=== PATIENT | male | born 1985 | race American Indian/Alaskan Native ===

== ENCOUNTER 2017-02-10 08:19 | Emergency (ER) | payer BC ==
[2017-02-10 08:49] VITALS: BP 112/81
--- NOTE | 2017-02-10 09:29 | XRay Report ---
RIGHT HAND, 3 views: History: Pain, right middle finger swelling Mild nonspecific soft tissue swelling of the distal third digit is noted. No radiopaque foreign body, bony abnormality or joint pathology is appreciated. IMPRESSION: Nonspecific soft tissue swelling of the distal third digit.
--- NOTE | 2017-02-10 10:56 | Emergency Department Report ---
HPI - General Chief Complaint: Extremity Injury, Upper Time Seen by Provider: 02/10/17 09:32 - HPI HPI: 31-year-old male presents to ED complaining of pain and swelling to the right third fingertip. Patient states the past 2-3 days since he noticed swelling. Patient denies injury or trauma to the finger. Patient states pain with movement. He states he gets his fingernails a couple of days ago. Signed he denies fever chills nausea vomiting or any other problems ED Past Medical Hx - Past Medical History Previous Medical History?: No - Surgical History Past Surgical History?: No - Social History Smoking Status: Never Smoker Substance Use Type: None - Medications Home Medications: Home Medications Medication Instructions Recorded Confirmed Last Taken Type Cephalexin [Keflex] 500 mg PO BID #12 capsule 02/10/17 Unknown Rx Ibuprofen [Motrin] 800 mg PO Q8HR PRN #30 tablet 02/10/17 Unknown Rx ED Review of Systems ROS: Stated complaint: RT FINGER SWOLLEN Other details as noted in HPI Constitutional: denies: chills, fever Eyes: denies: eye pain, eye discharge, vision change ENT: denies: ear pain, throat pain Respiratory: denies: cough, shortness of breath, wheezing Cardiovascular: denies: chest pain, palpitations Endocrine: no symptoms reported Gastrointestinal: denies: abdominal pain, nausea, vomiting, diarrhea Genitourinary: denies: urgency, dysuria Musculoskeletal: denies: back pain, joint swelling, arthralgia Skin: denies: rash, lesions Neurological: denies: headache, weakness, paresthesias Psychiatric: denies: anxiety, depression Hematological/Lymphatic: denies: easy bleeding, easy bruising Physical Exam - Physical Exam Vital Signs: Vital Signs 02/10/17 08:48 Temperature 98.2 F Pulse Rate 72 Respiratory 18 Rate Blood Pressure 112/81 [Left] O2 Sat by Pulse 100 Oximetry Physical Exam: GENERAL: Alert and oriented x3, no apparent distress, Normal Gait, atraumatic. HEAD: Head is normocephalic and a-traumatic. EYES: Extra ocular muscles are intact. Pupils are equal, round, and reactive to light and accommodation. LUNGS: Symetrical with respiration, No wheezing, no rales or crackles, CTAB. HEART: S1, S2 present, regular rate and rhythm without murmur, no rubs, no gallops. Non tender to palpation FINGER: There is digit fingertip read, swollen, consistent with [place] since SKIN: Warm and dry, No lesions, No ulceration or induration present. ED Course Vital Signs 02/10/17 08:48 Temperature 98.2 F Pulse Rate 72 Respiratory 18 Rate Blood Pressure 112/81 [Left] O2 Sat by Pulse 100 Oximetry ED Medical Decision Making - Medical Decision Making 30-year-old male presents with paronychia ED course: Digital block was achieved with 4 mL of lidocaine Small incision made at nail bed appears discharge expelled. Patient managed procedure well Discussed antibiotics as prescribed. Discussed pain medicine as needed Follow-up with primary care physician. Signs are normal patient is in no acute distress. Critical care attestation.: If time is entered above; I have spent that time in minutes in the direct care of this critically ill patient, excluding procedure time. ED Disposition Clinical Impression: Onychia, finger Qualifiers: Laterality: right Qualified Code(s): L03.011 - Cellulitis of right finger Disposition: DC-01 TO HOME OR SELFCARE Is pt being admited?: No Does the pt Need Aspirin: No Condition: Stable Instructions: Paronychia (ED), Ingrown Nail (ED) Prescriptions: Cephalexin [Keflex] 500 mg PO BID #12 capsule Ibuprofen [Motrin] 800 mg PO Q8HR PRN #30 tablet PRN Reason: Pain Referrals: PRIMARY CARE,MD [Primary Care Provider] - 3-5 Days [facility] [Outside] - 3-5 Days [facility] [Outside] - 3-5 Days Forms: Work/School Release Form(ED) Time of Disposition: 11:21
== END 2017-02-10 11:47 | disposition home or self-care (01) ==
LOC: ED 08:19
DX: B37.2 Candidiasis of skin and nail (principal)
CPT/HCPCS: 99283

== ENCOUNTER 2018-02-09 11:01 | Emergency (ER) | payer SELFPAY ==
[2018-02-09 11:11] VITALS: BP 112/72
[2018-02-09] MEDS ORDERED: XYLOCAINE 2% INFILTRATI ONE (12:44)
--- NOTE | 2018-02-09 13:40 | Emergency Department Report ---
Abscess Boil HPI - HPI Chief Complaint: Skin/Abscess/Foreign Body Stated Complaint: PAINFUL KNOT ON STOMACH Time Seen by Provider: 02/09/18 12:04 Location: Abdomen Severity: Mild History: Yes Fever, Yes Pain, No Purulent Drainage, No Numbness, No Foreign Body , No Previous History, No Insect Bite HPI: This is a 32-year-old -[place] male who presents with the abscess to right lower abdomen for 4 days. Patient reports abscess drained twice while at home with applying moist compress. States abscess decreased in size initially but remained painful and erythematous. He has not taken anything for symptom relief. Reports pain is aggravated by movement and touch. When he is laying flat he doesn't feel pain. Pain is 8 out of 10 on pain scale. Denies numbness or tingling, drainage, insect bite, recent travel, nausea or vomiting, and past history of abscess. Home Medications: Previous Rx's Medication Instructions Recorded Last Taken Type Cephalexin [Keflex] 500 mg PO BID #12 capsule 02/10/17 Unknown Rx Ibuprofen [Motrin] 800 mg PO Q8HR PRN #30 tablet 02/10/17 Unknown Rx Ibuprofen [Motrin 800 MG tab] 800 mg PO Q8HR PRN #20 tablet 02/09/18 Unknown Rx Sulfamethoxazole/Trimethoprim 1 each PO BID 10 Days #20 tablet 02/09/18 Unknown Rx [Bactrim DS TAB] Allergies/Adverse Reactions: Allergies Allergy/AdvReac Type Severity Reaction Status Date / Time No Known Allergies Allergy Verified 02/10/17 08:52 ED Review of Systems ROS: Stated complaint: PAINFUL KNOT ON STOMACH Other details as noted in HPI Constitutional: fever. denies: chills Respiratory: denies: cough, shortness of breath, wheezing Cardiovascular: denies: chest pain, palpitations Gastrointestinal: denies: abdominal pain, nausea, vomiting, diarrhea Skin: lesions (abscess of right lower abdomen). denies: rash Neurological: denies: headache, weakness, numbness, paresthesias Psychiatric: denies: anxiety, depression ED Past Medical Hx - Past Medical History Previous Medical History?: No - Surgical History Past Surgical History?: No - Social History Smoking Status: Never Smoker Substance Use Type: None - Medications Home Medications: Home Medications Medication Instructions Recorded Confirmed Last Taken Type Cephalexin [Keflex] 500 mg PO BID #12 capsule 02/10/17 Unknown Rx Ibuprofen [Motrin] 800 mg PO Q8HR PRN #30 tablet 02/10/17 Unknown Rx Ibuprofen [Motrin 800 MG tab] 800 mg PO Q8HR PRN #20 tablet 02/09/18 Unknown Rx Sulfamethoxazole/Trimethoprim 1 each PO BID 10 Days #20 tablet 02/09/18 Unknown Rx [Bactrim DS TAB] ED Abscess Boil Physical Exam - Exam General: Vital signs noted. No distress. Alert and acting appropriately. Front/Back of Body, Lg (Color): 1 - 3 cm fluctuance erythematous nodule to right lower quadrant, tenderness, no drainage or surrounding cellulitis Size: 3 cm Exam: Yes Tenderness, Yes Fluctuance, Yes Normal Neurologic Exam, Yes Normal Circulation, No Surrounding Cellulites/Erythema, No Lymphangitis, No Crepitation , No Heart Murmur I & D Note - I & D Note I & D Note: The area was prepared and draped in the usual, sterile manner. The site was anesthetized with 2% lidocaine without epinephrine. A linear incision along the local skin lines was made and the purulent material expressed. The abcess was explored thoroughly and sequestered pockets were opened. Bleeding was minimal. Packing: idodoform. Followup: The patient tolerated the procedure well without complications. Standard post-procedure care was explained and return precautions are given. ED Course Vital Signs 02/09/18 11:06 Temperature 99.1 F Pulse Rate 84 Respiratory 20 Rate Blood Pressure 112/72 O2 Sat by Pulse 97 Oximetry Critical care attestation.: If time is entered above; I have spent that time in minutes in the direct care of this critically ill patient, excluding procedure time. ED Medical Decision Making - Medical Decision Making This is a 32 y.o. male that presents with a painful abscess to right lower abdomen for 4 days. No history of prior abscess. Patient is stable and examined by me. Physical assessment of 3 cm fluctuance nodule to right lower quadrant. No acute signs of distress noted. I&D refer to note. Discussed plan to start bactrim DS and ibuprofen with patient. Educated patient on follow up plan to have packing removed and wound reassessed in 2-3 days. Patient agrees to ED plan of care. Discharged home and follow up with PCP in 2-3 days. ED Disposition Clinical Impression: Abscess Disposition: DC- TO HOME OR SELFCARE Is pt being admited?: No Does the pt Need Aspirin: No Condition: Stable Instructions: Abscess Incision and Drainage (ED), Abscess (ED) Additional Instructions: Keep packing in place for 2-3 days. Return to ER or f/u with PCP to have packing removed and wound reassessed. Complete full round of bactrim DS antibiotic as prescribed. Follow up with PCP or ER in 2-3 days. Return to ER if foul smelling discharge, swelling, or severe pain to wound. Prescriptions: Ibuprofen [Motrin 800 MG tab] 800 mg PO Q8HR PRN #20 tablet PRN Reason: Pain , Severe (7-10) Sulfamethoxazole/Trimethoprim [Bactrim DS TAB] 1 each PO BID 10 Days #20 tablet Referrals: [facility] [Outside] - 3-5 Days [facility] [Outside] - 3-5 Days [facility] [Outside] - 3-5 Days Time of Disposition: 13:51 Print Language: CZECH
== END 2018-02-09 14:06 | disposition home or self-care (01) ==
LOC: ED 11:01
DX: L02.211 Cutaneous abscess of abdominal wall (principal)
CPT/HCPCS: 99282

== ENCOUNTER 2018-02-12 08:23 | Emergency (ER) | payer SELFPAY ==
[2018-02-12 08:45] VITALS: BP 108/74
--- NOTE | 2018-02-12 09:41 | Emergency Department Report ---
ED General Adult HPI - General Chief complaint: Recheck/Abnormal Lab/Rx Stated complaint: SUTURE REMOVAL Time Seen by Provider: 02/12/18 09:27 Source: patient Mode of arrival: Ambulatory Limitations: No Limitations - History of Present Illness Initial comments: Patient is a 32-year-old male who is 3 days status post I&D of an abscess on his lower abdomen. Patient states pain is improving and has been very minimal drainage. Patient is here for wound recheck and potential packing removal. Patient denies any fevers chills nausea vomiting at this time. Patient is taking his antibiotics and pain meds appropriately. Severity scale (0 -10): 3 - Related Data Previous Rx's Medication Instructions Recorded Last Taken Type Cephalexin [Keflex] 500 mg PO BID #12 capsule 02/10/17 Unknown Rx Ibuprofen [Motrin] 800 mg PO Q8HR PRN #30 tablet 02/10/17 Unknown Rx Ibuprofen [Motrin 800 MG tab] 800 mg PO Q8HR PRN #20 tablet 02/09/18 Unknown Rx Sulfamethoxazole/Trimethoprim 1 each PO BID 10 Days #20 tablet 02/09/18 Unknown Rx [Bactrim DS TAB] Allergies Allergy/AdvReac Type Severity Reaction Status Date / Time No Known Allergies Allergy Verified 02/12/18 08:43 ED Review of Systems ROS: Stated complaint: SUTURE REMOVAL Other details as noted in HPI Comment: All other systems reviewed and negative ED Past Medical Hx - Social History Smoking Status: Current Some Day Smoker Substance Use Type: Alcohol - Medications Home Medications: Home Medications Medication Instructions Recorded Confirmed Last Taken Type Cephalexin [Keflex] 500 mg PO BID #12 capsule 02/10/17 Unknown Rx Ibuprofen [Motrin] 800 mg PO Q8HR PRN #30 tablet 02/10/17 Unknown Rx Ibuprofen [Motrin 800 MG tab] 800 mg PO Q8HR PRN #20 tablet 02/09/18 Unknown Rx Sulfamethoxazole/Trimethoprim 1 each PO BID 10 Days #20 tablet 02/09/18 Unknown Rx [Bactrim DS TAB] ED Physical Exam - General Limitations: No Limitations General appearance: alert, in no apparent distress - Head Head exam: Present: atraumatic, normocephalic - Eye Eye exam: Present: normal appearance - ENT ENT exam: Present: mucous membranes moist - Neck Neck exam: Present: normal inspection - Respiratory Respiratory exam: Present: normal lung sounds bilaterally. Absent: respiratory distress - Cardiovascular Cardiovascular Exam: Present: regular rate, normal rhythm. Absent: systolic murmur, diastolic murmur, rubs, gallop - GI/Abdominal GI/Abdominal exam: Present: soft, normal bowel sounds - Rectal Rectal exam: Present: deferred - Extremities Exam Extremities exam: Present: normal inspection - Back Exam Back exam: Present: normal inspection - Neurological Exam Neurological exam: Present: alert, oriented X3 - Psychiatric Psychiatric exam: Present: normal affect, normal mood - Skin Skin exam: Present: warm, dry, intact, normal color, other (patient has some erythema and induration on the right lower abdomen. There is packing in place.) . Absent: rash ED Course Vital Signs 02/12/18 02/12/18 08:43 08:45 Temperature 98.2 F 98.2 F Pulse Rate 72 72 Respiratory 18 16 Rate Blood Pressure 108/74 Blood Pressure 108/74 [Left] O2 Sat by Pulse 100 98 Oximetry ED Medical Decision Making - Medical Decision Making Packing was removed from the patient's I&D site. There is no continued purulent drainage from the wound. There is good granulation tissue. Patient will be discharged home to continue with antibiotics Critical care attestation.: If time is entered above; I have spent that time in minutes in the direct care of this critically ill patient, excluding procedure time. ED Disposition Clinical Impression: Encounter for wound re-check, Cellulitis Disposition: DC-01 TO HOME OR SELFCARE Is pt being admited?: No Does the pt Need Aspirin: No Condition: Stable Referrals: [facility] [Outside] - 3-5 Days
== END 2018-02-12 10:04 | disposition home or self-care (01) ==
LOC: ED 08:23
DX: L03.311 Cellulitis of abdominal wall (principal); Z72.0 Tobacco use
CPT/HCPCS: 99282

== ENCOUNTER 2019-12-02 14:12 | Inpatient (IN) | payer OTHER ==
--- NOTE | 2019-12-02 14:51 | Emergency Department Report ---
ED General Adult HPI - General Chief complaint: Upper Respiratory Infection Stated complaint: COUGH,STOMACH PAIN Source: patient Mode of arrival: Ambulatory Limitations: No Limitations - History of Present Illness Initial comments: 34-year-old -[place] Citizen male presents to the emergency room for cough fever and shortness of breath since Thursday. Patient states on Thursday he started having sweats and chills on Thursday he had vomited several times by Thursday afternoon he had a cough he had taken qkbc-cyo-xnllhgl cough medicine. He started having epigastric pain that is worse with the cough on . 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 He denies any past medical history takes no medications on a daily basis and has no known drug allergies. Patient denies any diarrhea sore throat change of taste. Patient is unaware of any possible COVID contact. Onset/Timin -: days(s) Severity scale (0 -10): 5 Quality: aching Consistency: intermittent Improves with: none Worsens with: other (Coughing) Associated Symptoms: cough, fever/chills, nausea/vomiting, shortness of breath Treatments Prior to Arrival: none - Related Data Previous Rx's Medication Instructions Recorded Last Taken Type Cephalexin [Keflex] 500 mg PO BID #12 capsule 02/10/17 3 Days Ago Rx ~12/01/19 Ibuprofen [Motrin] 800 mg PO Q8HR PRN #30 tablet 02/10/17 3 Days Ago Rx ~12/01/19 Ibuprofen [Motrin 800 MG tab] 800 mg PO Q8HR PRN #20 tablet 02/09/18 3 Days Ago Rx ~12/01/19 Sulfamethoxazole/Trimethoprim 1 each PO BID 10 Days #20 tablet 02/09/18 3 Days Ago Rx [Bactrim DS TAB] ~12/01/19 Allergies Allergy/AdvReac Type Severity Reaction Status Date / Time No Known Allergies Allergy Verified 12/02/19 14:17 ED Review of Systems ROS: Stated complaint: COUGH,STOMACH PAIN Other details as noted in HPI ED Past Medical Hx - Past Medical History Previous Medical History?: No - Surgical History Past Surgical History?: No - Social History Smoking Status: Never Smoker Substance Use Type: None - Medications Home Medications: Home Medications Medication Instructions Recorded Confirmed Last Taken Type Cephalexin [Keflex] 500 mg PO BID #12 capsule 02/10/17 12/04/19 3 Days Ago Rx ~12/01/19 Ibuprofen [Motrin] 800 mg PO Q8HR PRN #30 tablet 02/10/17 12/04/19 3 Days Ago Rx ~12/01/19 Ibuprofen [Motrin 800 MG tab] 800 mg PO Q8HR PRN #20 tablet 02/09/18 12/04/19 3 Days Ago Rx ~12/01/19 Sulfamethoxazole/Trimethoprim 1 each PO BID 10 Days #20 tablet 02/09/18 12/04/19 3 Days Ago Rx [Bactrim DS TAB] ~12/01/19 ED Physical Exam - General Limitations: No Limitations General appearance: alert, in no apparent distress - Head Head exam: Present: atraumatic, normocephalic - Eye Eye exam: Present: normal appearance - ENT ENT exam: Present: mucous membranes moist - Neck Neck exam: Present: normal inspection - Respiratory Respiratory exam: Present: normal lung sounds bilaterally. Absent: respiratory distress - Cardiovascular Cardiovascular Exam: Present: regular rate, normal rhythm. Absent: systolic murmur, diastolic murmur, rubs, gallop - GI/Abdominal GI/Abdominal exam: Present: soft, normal bowel sounds - Rectal Rectal exam: Present: deferred - Extremities Exam Extremities exam: Present: normal inspection - Back Exam Back exam: Present: normal inspection - Neurological Exam Neurological exam: Present: alert, oriented X3, normal gait - Psychiatric Psychiatric exam: Present: normal affect, normal mood - Skin Skin exam: Present: warm, dry, intact, normal color. Absent: rash ED Course Vital Signs 12/02/19 12/02/19 12/02/19 14:20 14:22 19:45 Temperature 100.2 F H Pulse Rate 116 H 116 H 106 H Respiratory 15 21 Rate Blood Pressure 103/60 Blood Pressure 109/71 [Left] O2 Sat by Pulse 97 97 97 Oximetry 12/02/19 20:02 Temperature Pulse Rate 106 H Respiratory 21 Rate Blood Pressure Blood Pressure 103/60 [Left] O2 Sat by Pulse 97 Oximetry ED Medical Decision Making - Lab Data Result diagrams: 12/05/19 04:09 12/05/19 04:09 Laboratory Tests 12/02/19 12/02/19 12/02/19 15:21 15:21 15:21 WBC 6.6 RBC 4.03 Hgb 10.5 L Hct 32.2 L MCV 80 L MCH 26 L MCHC 33 RDW 16.0 H Plt Count 122 L Miner % (Auto) Doughnut Icer Add Manual Diff Complete Total Counted 100 Seg Neuts % (Manual) 59.0 Band Neutrophils % 0 Lymphocytes % (Manual) 23.0 Reactive Lymphs % (Man) 0 Monocytes % (Manual) 14.0 H Eosinophils % (Manual) 1.0 Basophils % (Manual) 0 Metamyelocytes % 0 Myelocytes % 0 Promyelocytes % 0 Blast Cells % 3.0 Nucleated RBC % Not Reportable Seg Neutrophils # Man 3.9 Band Neutrophils # 0.0 Lymphocytes # (Manual) 1.5 Abs React Lymphs (Man) 0.0 Monocytes # (Manual) 0.9 H Eosinophils # (Manual) 0.1 Basophils # (Manual) 0.0 Metamyelocytes # 0.0 Myelocytes # 0.0 Promyelocytes # 0.0 Blast Cells # 0.8 Hypersegmented Neuts Not Reportable Hyposegmented Neuts Not Reportable Hypogranular Neuts Not Reportable Smudge Cells Not Reportable Toxic Granulation Not Reportable Toxic Vacuolation Not Reportable Dohle Bodies Not Reportable Pelger-Huet Anomaly Not Reportable Albina Rods Not Reportable Platelet Estimate Not Reportable Clumped Platelets Not Reportable Plt Clumps, EDTA Not Reportable Large Platelets Not Reportable Giant Platelets Not Reportable Platelet Satelliting Not Reportable Plt Morphology Comment Not Reportable RBC Morphology Normal Dimorphic RBCs Not Reportable Polychromasia Not Reportable Hypochromasia Not Reportable Poikilocytosis Not Reportable Anisocytosis Not Reportable Microcytosis Not Reportable Macrocytosis Not Reportable Spherocytes Not Reportable Pappenheimer Bodies Not Reportable Sickle Cells Not Reportable Target Cells Not Reportable Tear Drop Cells Not Reportable Ovalocytes Not Reportable Helmet Cells Not Reportable Jones-[place] Bodies Not Reportable [place] Rings Not Reportable Carter Cells Not Reportable Bite Cells Not Reportable Crenated Cell Not Reportable Elliptocytes Not Reportable Acanthocytes (Spur) Not Reportable Rouleaux Not Reportable Hemoglobin C Crystals Not Reportable Schistocytes Not Reportable Malaria parasites Not Reportable Juan Carlos Bodies Not Reportable Hem Pathologist Commnt Sent to pathology D-Dimer 3284.41 H Sodium 126 L Potassium 4.1 Chloride 93.3 L Carbon Dioxide 20 L Anion Gap 17 BUN 12 Creatinine 1.0 Estimated GFR > 60 BUN/Creatinine Ratio 12 Glucose 114 H Calcium 8.2 L Ferritin Total Bilirubin 0.40 AST 32 ALT 20 Alkaline Phosphatase 54 Lactate Dehydrogenase C-Reactive Protein Total Protein 8.3 H Albumin 2.8 L Albumin/Globulin Ratio 0.5 12/02/19 12/02/19 15:21 15:21 WBC RBC Hgb Hct MCV MCH MCHC RDW Plt Count Miner % (Auto) Add Manual Diff Total Counted Seg Neuts % (Manual) Band Neutrophils % Lymphocytes % (Manual) Reactive Lymphs % (Man) Monocytes % (Manual) Eosinophils % (Manual) Basophils % (Manual) Metamyelocytes % Myelocytes % Promyelocytes % Blast Cells % Nucleated RBC % Seg Neutrophils # Man Band Neutrophils # Lymphocytes # (Manual) Abs React Lymphs (Man) Monocytes # (Manual) Eosinophils # (Manual) Basophils # (Manual) Metamyelocytes # Myelocytes # Promyelocytes # Blast Cells # Hypersegmented Neuts Hyposegmented Neuts Hypogranular Neuts Smudge Cells Toxic Granulation Toxic Vacuolation Dohle Bodies Pelger-Huet Anomaly Albina Rods Platelet Estimate Clumped Platelets Plt Clumps, EDTA Large Platelets Giant Platelets Platelet Satelliting Plt Morphology Comment RBC Morphology Dimorphic RBCs Polychromasia Hypochromasia Poikilocytosis Anisocytosis Microcytosis Macrocytosis Spherocytes Pappenheimer Bodies Sickle Cells Target Cells Tear Drop Cells Ovalocytes Helmet Cells Jones-[place] Bodies [place] Rings [place] Cells Bite Cells Crenated Cell Elliptocytes Acanthocytes (Spur) Rouleaux Hemoglobin C Crystals Schistocytes Malaria parasites Juan Carlos Bodies Hem Pathologist Commnt D-Dimer Sodium Potassium Chloride Carbon Dioxide Anion Gap BUN Creatinine Estimated GFR BUN/Creatinine Ratio Glucose Calcium Ferritin 1133.0 H Total Bilirubin AST ALT Alkaline Phosphatase Lactate Dehydrogenase 206 H C-Reactive Protein 14.60 H Total Protein Albumin Albumin/Globulin Ratio - Radiology Data Radiology results: report reviewed Referring Physician:TREVON GARCIAPatient Name:PENNY BARRAZAatiselin ID:[id number] of :[id number]:MaleAccession:[id number] Date:[id number] Status:Finalized Findings [facility] [address] [place] [address] XRay Report Signed Patient: PENNY FERNANDO III MR #: [id number] : 1985 Acct:[id number] Age/Sex: 34 / M ADM Date: 12/02/19 Loc: ED Attending Dr: Ordering Physician: DEEPTHI HOWARD Date of Service: 12/02/19 Procedure(s): XR chest routine 2V Accession Number(s): [id number] cc: DEEPTHI HOWARD Fluoro Time In Minutes: CHEST 2 VIEWS INDICATION / CLINICAL INFORMATION: Shortness of breath and fever. COMPARISON: None available. FINDINGS: SUPPORT DEVICES: None. HEART / MEDIASTINUM: The heart size and pulmonary vasculature are normal. LUNGS / PLEURA: There is jvcl-[id number]-msbgxrgl patchy parenchymal disease in the right perihilar region. There may be minimal patchy parenchymal disease in the left midlung. A trace amount of right pleural fluid is present. No pneumothorax. ADDITIONAL FINDINGS: No significant additional findings. IMPRESSION: Patchy parenchymal disease, predominantly in the right perihilar region, is likely inflammatory. Bacterial pneumonia as well as atypical causes of pneumonia, including viral pneumonia should be considered. Signer Name: Benton Antoine MD Signed: 12/02/2019 3:09 PM Workstation Name: [id number] Transcribed By: RT Dictated By: Benton Antoine MD Electronically Authenticated By: Benton Antoine MD Signed Date/Time: 12/02/19 1509 DD/ 1507 TD/TT: - Medical Decision Making 34-year-old -[place] Citizen male presents to the emergency room for cough fever and shortness of breath since Thursday. Patient states on Thursday he started having sweats and chills on Thursday he had vomited several times by Thursday afternoon he had a cough he had taken puiv-bvc-fxjbrrj cough medicine. He started having epigastric pain that is worse with the cough on . 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 He denies any past medical history takes no medications on a daily basis and has no known drug allergies. Patient denies any diarrhea sore throat change of taste. Patient is unaware of any possible COVID contact. Chest x-ray, CBC, CMP, ferritin, LD, d-dimer and prolactin level. Discussed case with Dr. Mena he feels patient needs to be admitted. Spoke to Dr. Higgins states that he will place patient on his list bridge orders placed. Critical care attestation.: If time is entered above; I have spent that time in minutes in the direct care of this critically ill patient, excluding procedure time. ED Disposition Clinical Impression: Pneumonia, Suspected 2019 novel coronavirus infection, Elevated ferritin, Shortness of breath, CRP elevated, Low grade fever, Cough, D-dimer, elevated Disposition: OP ADMIT IP TO THIS HOSP Is pt being admited?: Yes Does the pt Need Aspirin: No Condition: Stable
[2019-12-02] MEDS ORDERED: ACETAMINOPHEN 325 MG TAB PO ONE (14:55)
--- NOTE | 2019-12-02 15:13 | XRay Report ---
CHEST 2 VIEWS INDICATION / CLINICAL INFORMATION: Shortness of breath and fever. COMPARISON: None available. FINDINGS: SUPPORT DEVICES: None. HEART / MEDIASTINUM: The heart size and pulmonary vasculature are normal. LUNGS / PLEURA: There is vsyz-eo-nkgzrrgy patchy parenchymal disease in the right perihilar region. T here may be minimal patchy parenchymal disease in the left midlung. A trace amount of right pleural f luid is present. No pneumothorax. ADDITIONAL FINDINGS: No significant additional findings. IMPRESSION: Patchy parenchymal disease, predominantly in the right perihilar region, is likely inflam matory. Bacterial pneumonia as well as atypical causes of pneumonia, including viral pneumonia should be considered. Signer Name: Benton Antoine MD Signed: 12/02/2019 3:09 PM Workstation Name: [id number]
[2019-12-02 16:03] LABS: Alanine Aminotransferase 20 units/L (7-56); Albumin 2.8 g/dL (3.9-5); BUN/Creatinine Ratio 12; Blood Urea Nitrogen 12 mg/dL (9-20); Calcium 8.2 mg/dL (8.4-10.2); Hemolysis Index 8
[2019-12-02 16:04] LABS: C-Reactive Protein 14.6 mg/dL (0.00-1.30)
[2019-12-02 16:08] LABS: Hematocrit 32.2 % (35.5-45.6); Hemoglobin 10.5 gm/dl (11.8-15.2); Mean Corpuscular HGB Conc 33 % (32-34); Mean Corpuscular Volume 80 fl (84-94); Platelet Count 122 K/mm3 (140-440); Red Blood Count 4.03 M/mm3 (3.65-5.03)
[2019-12-02 16:57] LABS: Basophils % (Manual) 0 % (0.0-1.8); RBC Morphology Normal; Total Cells Counted 100
[2019-12-02] MEDS ORDERED: SODIUM CHLORIDE 0.9% 1000 ML 1,000 ML IV ONE (16:57)
[2019-12-02] MEDS ORDERED: cefTRIAXone/NS 2 GM/100 ML 2 GM/100 ML BAG IV ONE (17:37)
[2019-12-02] MEDS ORDERED: AZITHROMYCIN 500 MG in SODIUM CHLORIDE 0.9% 250ML 250 ML IV ONE (17:39)
[2019-12-02] MEDS ORDERED: SODIUM CHLORIDE 0.9% 1000 ML 500 ML IV ONE (17:41)
--- NOTE | 2019-12-02 22:14 | History and Physical Report ---
History of Present Illness Date of examination: 12/02/19 Date of admission: 12/02/19 18:37 Chief complaint: Shortness of breath since Thursday Cough since Thursday History of present illness: 34-year-old -[place] male with no significant past medical history comes in for fever and chills since . Patient had vomited several times on . Patient has cough and has been taking bqif-wwd-hzzzfmc medicines. Patient also having epigastric pain from coughing. 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 Does not is not on any medication medications. No diarrhea. No exposure to any coronavirus patients. Past Medical History Previous Medical History?: No Surgical History Past Surgical History?: No Social History Smoking Status: Never Smoker Substance Use Type: family history None - Medications Home Medications: Home Medications Medication Instructions Recorded Confirmed Last Taken Type Cephalexin [Keflex] 500 mg PO BID #12 capsule 02/10/17 Unknown Rx Ibuprofen [Motrin] 800 mg PO Q8HR PRN #30 tablet 02/10/17 Unknown Rx Ibuprofen [Motrin 800 MG tab] 800 mg PO Q8HR PRN #20 tablet 02/09/18 Unknown Rx Sulfamethoxazole/Trimethoprim 1 each PO BID 10 Days #20 tablet 02/09/18 Unknown Rx [Bactrim DS TAB] Review of Systems ROS: Constitutional fever and chills HEENT no sore throat no post nasal drip no diplopia Neck no neck stiffness no lymph gland enlargement Chest and lungs cough and fever and chills no shortness of breath cough or wheezing CVS no chest pain no diaphoresis no palpitations GI no nausea no vomiting no diarrhea Genitourinary system no dysuria no flank pain Musculoskeletal system no muscle pains no joint pains 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 Skin no rash no itching Psychiatric no depression no homicidal or suicidal tendencies Hematologic no lymphedema or bruising Endocrine no polydipsia no polyuria no cold intolerance no heat intolerance Stated complaint: COUGH,STOMACH PAIN Other details as noted in HPI Medications and Allergies Allergies Allergy/AdvReac Type Severity Reaction Status Date / Time No Known Allergies Allergy Verified 12/02/19 14:17 Home Medications Medication Instructions Recorded Confirmed Last Taken Type Cephalexin [Keflex] 500 mg PO BID #12 capsule 02/10/17 Unknown Rx Ibuprofen [Motrin] 800 mg PO Q8HR PRN #30 tablet 02/10/17 Unknown Rx Ibuprofen [Motrin 800 MG tab] 800 mg PO Q8HR PRN #20 tablet 02/09/18 Unknown Rx Sulfamethoxazole/Trimethoprim 1 each PO BID 10 Days #20 tablet 02/09/18 Unknown Rx [Bactrim DS TAB] Exam - Constitutional Vitals: Temp Pulse Resp BP Pulse Ox 99.1 F 104 H 18 95/61 100 12/02/19 20:23 12/02/19 20:23 12/02/19 20:23 12/02/19 20:23 12/02/19 20:23 General appearance: Present: no acute distress, well-nourished - EENT Eyes: Present: PERRL ENT: hearing intact, clear oral mucosa - Neck Neck: Present: supple, normal ROM - Respiratory Respiratory effort: normal Respiratory: bilateral: CTA, rhonchi (Scattered) - Cardiovascular Heart rate: 78 Heart Sounds: Present: S1 & S2. Absent: rub, click - Extremities Extremities: pulses symmetrical, No edema Peripheral Pulses: within normal limits - Abdominal General gastrointestinal: Present: soft, non-tender, non-distended, normal bowel sounds Male genitourinary: Present: normal - Integumentary Integumentary: Present: clear, warm, dry - Musculoskeletal Musculoskeletal: gait normal, strength equal bilaterally - Psychiatric Psychiatric: appropriate mood/affect, intact judgment & insight - Neurologic Neurologic: CNII-XII intact, moves all extremities Results - Labs CBC & Chem 7: 12/02/19 15:21 12/03/19 05:54 Labs: Laboratory Last Values WBC 6.6 K/mm3 (4.5-11.0) 12/02/19 15: RBC 4.03 M/mm3 (3.65-5.03) 12/02/19 15:21 Hgb 10.5 gm/dl (11.8-15.2) L 12/02/19 15:21 Hct 32.2 % (35.5-45.6) L 12/02/19 15:21 MCV 80 fl (84-94) L 12/02/19 15:21 MCH 26 pg (28-32) L 12/02/19 15:21 MCHC 33 % (32-34) 12/02/19 15:21 RDW 16.0 % (13.2-15.2) H 12/02/19 15:21 Plt Count 122 K/mm3 (140-440) L 12/02/19 15:21 [place] % (Auto) Adoption Social Worker 12/02/19 15:21 Add Manual Diff Complete 12/02/19 15:21 Total Counted 100 12/02/19 15:21 Seg Neuts % (Manual) 59.0 % (40.0-70.0) 12/02/19 15:21 Band Neutrophils % 0 % 12/02/19 15:21 Lymphocytes % (Manual) 23.0 % (13.4-35.0) 12/02/19 15:21 Reactive Lymphs % (Man) 0 % 12/02/19 15:21 Monocytes % (Manual) 14.0 % (0.0-7.3) H 12/02/19 15:21 Eosinophils % (Manual) 1.0 % (0.0-4.3) 12/02/19 15:21 Basophils % (Manual) 0 % (0.0-1.8) 12/02/19 15:21 Metamyelocytes % 0 % 12/02/19 15:21 Myelocytes % 0 % 12/02/19 15:21 Promyelocytes % 0 % 12/02/19 15:21 Blast Cells % 3.0 % 12/02/19 15:21 Nucleated RBC % Not Reportable 12/02/19 15:21 Seg Neutrophils # Man 3.9 K/mm3 (1.8-7.7) 12/02/19 15:21 Band Neutrophils # 0.0 K/mm3 12/02/19 15:21 Lymphocytes # (Manual) 1.5 K/mm3 (1.2-5.4) 12/02/19 15:21 Abs React Lymphs (Man) 0.0 K/mm3 12/02/19 15:21 Monocytes # (Manual) 0.9 K/mm3 (0.0-0.8) H 12/02/19 15:21 Eosinophils # (Manual) 0.1 K/mm3 (0.0-0.4) 12/02/19 15:21 Basophils # (Manual) 0.0 K/mm3 (0.0-0.1) 12/02/19 15:21 Metamyelocytes # 0.0 K/mm3 12/02/19 15:21 Myelocytes # 0.0 K/mm3 12/02/19 15:21 Promyelocytes # 0.0 K/mm3 12/02/19 15:21 Blast Cells # 0.8 K/mm3 12/02/19 15:21 Hypersegmented Neuts Not Reportable 12/02/19 15:21 Hyposegmented Neuts Not Reportable 12/02/19 15:21 Hypogranular Neuts Not Reportable 12/02/19 15:21 Smudge Cells Not Reportable 12/02/19 15:21 Toxic Granulation Not Reportable 12/02/19 15:21 Toxic Vacuolation Not Reportable 12/02/19 15:21 Dohle Bodies Not Reportable 12/02/19 15:21 Pelger-Huet Anomaly Not Reportable 12/02/19 15:21 Albina Rods Not Reportable 12/02/19 15:21 Platelet Estimate Not Reportable 12/02/19 15:21 Clumped Platelets Not Reportable 12/02/19 15:21 Plt Clumps, EDTA Not Reportable 12/02/19 15:21 Large Platelets Not Reportable 12/02/19 15:21 Giant Platelets Not Reportable 12/02/19 15:21 Platelet Satelliting Not Reportable 12/02/19 15:21 Plt Morphology Comment Not Reportable 12/02/19 15:21 RBC Morphology Normal 12/02/19 15:21 Dimorphic RBCs Not Reportable 12/02/19 15:21 Polychromasia Not Reportable 12/02/19 15:21 Hypochromasia Not Reportable 12/02/19 15:21 Poikilocytosis Not Reportable 12/02/19 15:21 Anisocytosis Not Reportable 12/02/19 15:21 Microcytosis Not Reportable 12/02/19 15:21 Macrocytosis Not Reportable 12/02/19 15:21 Spherocytes Not Reportable 12/02/19 15:21 Pappenheimer Bodies Not Reportable 12/02/19 15:21 Sickle Cells Not Reportable 12/02/19 15:21 Target Cells Not Reportable 12/02/19 15:21 Tear Drop Cells Not Reportable 12/02/19 15:21 Ovalocytes Not Reportable 12/02/19 15:21 Helmet Cells Not Reportable 12/02/19 15:21 Jones-Dunnellon Bodies Not Reportable 12/02/19 15:21 [place] Rings Not Reportable 12/02/19 15:21 Carter Cells Not Reportable 12/02/19 15:21 Bite Cells Not Reportable 12/02/19 15:21 Crenated Cell Not Reportable 12/02/19 15:21 Elliptocytes Not Reportable 12/02/19 15:21 Acanthocytes (Spur) Not Reportable 12/02/19 15:21 Rouleaux Not Reportable 12/02/19 15:21 Hemoglobin C Crystals Not Reportable 12/02/19 15:21 Schistocytes Not Reportable 12/02/19 15:21 Malaria parasites Not Reportable 12/02/19 15:21 Juan Carlos Bodies Not Reportable 12/02/19 15:21 Hem Pathologist Commnt Sent to pathology 12/02/19 15:21 D-Dimer 3284.41 ng/mlDDU (0-234) H 12/02/19 15:21 Sodium 126 mmol/L (137-145) L 12/02/19 15:21 Potassium 4.1 mmol/L (3.6-5.0) 12/02/19 15:21 Chloride 93.3 mmol/L (98-107) L 12/02/19 15:21 Carbon Dioxide 20 mmol/L (22-30) L 12/02/19 15:21 Anion Gap 17 mmol/L 12/02/19 15:21 BUN 12 mg/dL (9-20) 12/02/19 15:21 Creatinine 1.0 mg/dL (0.8-1.5) 12/02/19 15:21 Estimated GFR > 60 ml/min 12/02/19 15:21 BUN/Creatinine Ratio 12 % 12/02/19 15:21 Glucose 114 mg/dL (75-100) H 12/02/19 15:21 Calcium 8.2 mg/dL (8.4-10.2) L 12/02/19 15:21 Ferritin 1133.0 ng/mL (13.0-400.0) H 12/02/19 15:21 Total Bilirubin 0.40 mg/dL (0.1-1.2) 12/02/19 15:21 AST 32 units/L (5-40) 12/02/19 15:21 ALT 20 units/L (7-56) 12/02/19 15:21 Alkaline Phosphatase 54 units/L (35-129) 12/02/19 15:21 Lactate Dehydrogenase 206 units/L (91-180) H 12/02/19 15:21 C-Reactive Protein 14.60 mg/dL (0.00-1.30) H 12/02/19 15:21 Total Protein 8.3 g/dL (6.3-8.2) H 12/02/19 15:21 Albumin 2.8 g/dL (3.9-5) L 12/02/19 15:21 Albumin/Globulin Ratio 0.5 % 12/02/19 15:21 BMP 12/03/19 05:54 Sodium 130 L Potassium 4.2 Chloride 97.4 L Carbon Dioxide 24 BUN 13 Creatinine 1.0 Glucose 103 H Calcium 7.8 L Liver Function 12/03/19 Range/Units 05:54 Total Bilirubin 0.40 (0.1-1.2) mg/dL AST 39 (5-40) units/L ALT 20 (7-56) units/L Alkaline Phosphatase 46 (35-129) units/L Albumin 2.7 L (3.9-5) g/dL Microbiology: Microbiology 12/02/19 15:30 Peripheral/Venous Blood Culture - Preliminary Culture in Progress 12/02/19 15:21 Peripheral/Venous Blood Culture - Preliminary Culture in Progress - Imaging and Cardiology EKG: report reviewed Chest x-ray: report reviewed (Right lower lobe pneumonia) Imaging and Cardiology: Chest x-ray IMPRESSION: Patchy parenchymal disease, predominantly in the right perihilar region, is likely inflammatory. Bacterial pneumonia as well as atypical causes of pneumonia, including viral pneumonia should be considered. Thakur/IV: IV Catheter Type [Right INT / Saline Lock Forearm] Assessment and Plan Advance Directives: Yes (Full code) VTE prophylaxis?: Chemical Plan of care discussed with patient/family: Yes - Patient Problems (1) Right lower lobe pneumonia Current Visit: Yes Status: Acute Plan to address problem: Patient started on Rocephin and Zithromax. Coronavirus PCR to rule out coronavirus. (2) Suspected 2019 novel coronavirus infection Current Visit: Yes Status: Acute Plan to address problem: Coronavirus PCR ordered. (3) D-dimer, elevated Current Visit: Yes Status: Acute Plan to address problem: Patient initiated on Lovenox 80 mg twice a day CT angiogram to rule out PE. (4) DVT prophylaxis Current Visit: Yes Status: Acute Plan to address problem: On heparin and GI prophylaxis
[2019-12-02] MEDS ORDERED: ONDANSETRON 4 MG/2 ML INJ IV PRN (22:28)
[2019-12-02] MEDS ORDERED: oxyCODONE /ACETAMINOPHEN 5-325MG TAB PO PRN (22:28)
[2019-12-02] MEDS ORDERED: HYDROmorphone 1 MG/1 ML INJ IV PRN (22:28)
[2019-12-02] MEDS ORDERED: ALBUTEROL 2.5 MG/3 ML NEBU IH PRN (22:47)
[2019-12-02] MEDS ORDERED: BENZONATATE 100 MG CAP PO PRN (22:59)
[2019-12-02] MEDS ORDERED: ENOXAPARIN 40 MG/0.4 ML INJ SUB-Q SCH (23:00)
[2019-12-02] MEDS: guaiFENesin/CODEINE 100-10MG ORAL LIQD 5 ML PO PRN (23:37)
[2019-12-02] MEDS: ACETAMINOPHEN 325 MG TAB PO PRN (23:38)
[2019-12-02] MEDS: ENOXAPARIN 80 MG/0.8 ML INJ SUB-Q SCH (23:38)
[2019-12-02] MEDS: FAMOTIDINE 20 MG TAB PO SCH (23:38)
[2019-12-03] MEDS: ACETAMINOPHEN 325 MG TAB PO PRN ×4 (04:09→22:59)
[2019-12-03 06:43] LABS: Alanine Aminotransferase 20 units/L (7-56); Albumin 2.7 g/dL (3.9-5); BUN/Creatinine Ratio 13; Blood Urea Nitrogen 13 mg/dL (9-20); Calcium 7.8 mg/dL (8.4-10.2); Hemolysis Index 0
[2019-12-03] MEDS ORDERED: AZITHROMYCIN 500 MG in SODIUM CHLORIDE 0.9% 250ML 250 ML IV SCH (10:00)
[2019-12-03] MEDS: FAMOTIDINE 20 MG TAB PO SCH ×2 (10:24→22:59)
[2019-12-03] MEDS: AZITHROMYCIN 250 MG TAB PO SCH (10:24)
[2019-12-03] MEDS: ENOXAPARIN 80 MG/0.8 ML INJ SUB-Q SCH ×2 (10:24→21:42)
[2019-12-03] MEDS ORDERED: CALCIUM GLUCONATE 2,000 MG in SODIUM CHLORIDE 0.9% 100 ML IV ONE (16:30)
[2019-12-03] MEDS: cefTRIAXone/NS 2 GM/100 ML 2 GM/100 ML BAG IV SCH (17:37)
--- NOTE | 2019-12-03 20:04 | Progress Note ---
Assessment and Plan - Patient Problems (1) Right lower lobe pneumonia Current Visit: Yes Status: Acute Plan to address problem: Patient started on Rocephin and Zithromax. Coronavirus PCR to rule out coronavirus. Coronavirus PCR negative. (2) Suspected 2019 novel coronavirus infection Current Visit: Yes Status: Acute Plan to address problem: Coronavirus PCR ordered. Ruled out. Coronavirus test is negative. Transfer to regular floor. (3) D-dimer, elevated Current Visit: Yes Status: Acute Plan to address problem: Patient initiated on Lovenox 80 mg twice a day CT angiogram to rule out PE. (4) Anemia Current Visit: Yes Status: Acute Plan to address problem: Anemia work-up (5) DVT prophylaxis Current Visit: Yes Status: Acute Plan to address problem: On heparin and GI prophylaxis Subjective Date of service: 12/03/19 Principal diagnosis: Right lower lobe pneumonia Interval history: Interval improvement present. Objective - Constitutional Vitals: Vital Signs - 12hr 12/03/19 12/03/19 12/03/19 10:00 11:30 17:10 Temperature 103.0 F H 100.3 F H Pulse Rate 114 H 107 H Respiratory 22 22 Rate Blood Pressure 96/60 111/71 O2 Sat by Pulse 97 94 98 Oximetry General appearance: Present: no acute distress, well-nourished - EENT Eyes: PERRL, EOM intact ENT: hearing intact, clear oral mucosa Ears: bilateral: normal - Neck Neck: supple, normal ROM - Respiratory Respiratory effort: normal Respiratory: bilateral: CTA, rhonchi, wheezing - Breasts Breasts: normal - Cardiovascular Heart rate: 78 Rhythm: regular Heart Sounds: Present: S1 & S2. Absent: gallop, rub Extremities: pulses intact, No edema, normal color, Full ROM - Gastrointestinal General gastrointestinal: Present: soft, non-tender, non-distended, normal bowel sounds - Genitourinary Male genitourinary: normal - Integumentary Integumentary: clear, warm, dry - Musculoskeletal Musculoskeletal: 1, strength equal bilaterally - Neurologic Neurologic: moves all extremities - Psychiatric Psychiatric: memory intact, appropriate mood/affect, intact judgment & insight - Labs CBC & Chem 7: 12/02/19 15:21 12/03/19 05:54 Labs: Abnormal lab results 04/25/20 04/25/20 04/25/20 Range/Units 00:19 00:19 05:54 D-Dimer 4007.44 H (0-234) ng/mlDDU Sodium 130 L (137-145) mmol/L Chloride 97.4 L (98-107) mmol/L Glucose 103 H (75-100) mg/dL Calcium 7.8 L (8.4-10.2) mg/dL Ferritin 1100.0 H (13.0-400.0) ng/mL Albumin 2.7 L (3.9-5) g/dL
[2019-12-03] MEDS: CALCIUM CARB/VIT D3/MINERALS 600 MG/800 UNITS TAB PO SCH (22:59)
--- NOTE | 2019-12-03 23:52 | Cat Scan Report ---
CTA CHEST WITH IV CONTRAST INDICATION: MAIN: Elevated d-dimer, shortness of breath, 100cc [id number] CONTRAST: 100 cc Omnipaque 350 IV COMPARISON: PA and lateral chest x-ray 12/02/2019 Three-plane MIP reconstructions were produced. All CT scans at this location are performed using CT d ose reduction for ALARA by means of automated exposure control. FINDINGS: No significant focal bony lesions are seen. Moderate bilateral axillary lymphadenopathy is seen. Largest individual node on the left has a short axis diameter of 17 mm and largest node on the right has a short axis diameter of 15 mm. No definite adenopathy is seen in the lower neck but at the junction of the neck and chest in the retroclavicular region on the left adenopathy is seen with a n ode measuring 12 mm in short axis. Moderate adenopathy is seen throughout the mediastinum which is mo stly conglomerate and ill-defined. This is most prominent in the subcarinal area where nodes have sheldon rt axis diameters up to 2 cm. Right paratracheal adenopathy has a short axis diameters of up to 2 cm. There is moderate right hilar and mild left hilar adenopathy. Views of the upper abdomen show mild s plenomegaly though the entire spleen is not visualized. Liver may be mildly enlarged but also is inco mpletely seen. There appears to be mild retrocrural adenopathy and probably adenopathy in the upper r etroperitoneum though this is ill-defined in this patient with only a small amount of internal body f at. Small bilateral pleural effusions are seen. No endobronchial lesions are obvious. No pneumothorax or pneumomediastinum are seen. Extensive right perihilar pneumonic type infiltrate is seen which extends well into the right middle lobe. This appears to be a mixture of alveolar consolidation and intersti tial disease more peripherally. In the posterior aspect of the left lower lobe a rounded dense area i s seen which is either a 13 mm nodule or focal rounded consolidation, possibly a combination of the 2. Mild atelectatic changes are seen in both lower lobes. Laterally in the left upper lobe on image 4 3 of series 2, a possible 7 mm nonsolid nodule is seen peripherally though this could be a small scar or minimal patchy infiltrate. More anteriorly on image 48 in the left upper lobe a solid-appearing n odule is seen measuring 5 mm. No definite nodules are seen on the right. Aorta shows no aneurysmal dilatation or evidence of dissection. Major branches appear to opacify well in the proximal portions. Adequate opacification of the pulmonary arterial system was achieved. I do not see convincing evidenc e of pulmonary thromboembolism. IMPRESSION: 1. No convincing evidence of pulmonary thromboembolism 2. Extensive adenopathy involving both axillary regions, junction of the neck and chest, mediastinum, both fransisco, retrocrural area, and probably the upper retroperitoneum. Additionally, there is mild hep atosplenomegaly. Findings are of significant concern for lymphoma. 3. Extensive right perihilar and right middle lobe infiltrate likely representing acute pneumonitis. 4. Nodule versus rounded infiltrate in the left lower lobe. Mild nodularity is also seen in the left lung and other areas. Follow-up is suggested. Signer Name: Ernesto Mata MD Signed: 12/03/2019 11:48 PM Workstation Name: [id number]
[2019-12-04] MEDS: guaiFENesin/CODEINE 100-10MG ORAL LIQD 5 ML PO PRN (04:52)
[2019-12-04] MEDS: ACETAMINOPHEN 325 MG TAB PO PRN (04:53)
[2019-12-04] MEDS: CALCIUM CARB/VIT D3/MINERALS 600 MG/800 UNITS TAB PO SCH ×2 (10:19→21:44)
[2019-12-04] MEDS: cefTRIAXone/NS 2 GM/100 ML 2 GM/100 ML BAG IV SCH (10:19)
[2019-12-04] MEDS: AZITHROMYCIN 250 MG TAB PO SCH (10:19)
[2019-12-04] MEDS: FAMOTIDINE 20 MG TAB PO SCH ×2 (10:19→21:44)
[2019-12-04] MEDS: ENOXAPARIN 80 MG/0.8 ML INJ SUB-Q SCH (10:19)
--- NOTE | 2019-12-04 14:18 | Consultation ---
History of Present Illness - Reason for Consult Consult date: 12/04/19 suspect COVID Requesting physician: TREVON GARCIA - History of Present Illness 35 years old male without any medical history, admitted on 12/03/2019 due to a week history of dry cough associated with malaise, body aches, fever and chills. Symptoms started on 11/28/2019. 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 He denies any nausea, vomiting, diarrhea. Patient reports 20 pound weight loss in 2019. Denies tobacco, alcohol or drug abuse. He lives in [place]. Patient is bisexual, last HIV test done 3 years ago was negative. Only 1 sex partner in last 12 months. On arrival, temperature 100.2, HR 116, RR 15, BP 109/71, O2 97. WBC 6.6. Hemoglobin 10.5. Platelets 122. Creatinine 1. Ferritin 1133. CRP 14. LDH 206. D-dimer 3284. Call with test negative. Blood culture12/02/2019-. Chest x-ray showed patchy bilateral pneumonia mainly to the right. CTA showed extensive lymphadenopathies in bilateral axilla, neck, chest, mediastinum, fransisco, upper retroperitoneal, mild hepatosplenomegaly, extensive right perihilar and middle lobe infiltrates. ID consulted for suspicion of COVID. Review of Systems: positive in bold print General: + fever, +chills, +malaise, +weight loss Cutaneous: rash, pruritus Head: headaches or injury Eyes: changes in vision, eye pain, double vision Ears: ear pain, ear discharge, ringing or hearing loss Nose: nose bleeding, stuffiness Mouth & throat: bleeding gums, horseness, no dental problems, or swollen glands Neck: no pain, node enlargement/lumps, tyroid enlargement or tenderness Respiratory: SOB, +cough, URBANO, wheezing, sputum, hemoptysis, pleuritic chest pain Cardiovascular: chest pain, leg edema, cyanosis, URBANO, orthopnea Musculoskeletal: edema Gastrointestinal: nausea, vomiting, hematemesis, diarrhea, constipation, jose na, bright red blood in stools, fecal incontinence, jaundice Genitourinary/Reproductive: frequent urination, dysuria, hematuria, incontinence Neurogical: seizures, headaches, weakness, paresthesias, loss of speech or vision; memory loss, vertigo, tremors, numbness Psychiatric: stable mood; excessive anxiety, sadness or moodiness Medications and Allergies Allergies Allergy/AdvReac Type Severity Reaction Status Date / Time No Known Allergies Allergy Verified 12/02/19 14:17 Home Medications Medication Instructions Recorded Confirmed Last Taken Type Cephalexin [Keflex] 500 mg PO BID #12 capsule 02/10/17 12/04/19 3 Days Ago Rx ~12/01/19 Ibuprofen [Motrin] 800 mg PO Q8HR PRN #30 tablet 02/10/17 12/04/19 3 Days Ago Rx ~12/01/19 Ibuprofen [Motrin 800 MG tab] 800 mg PO Q8HR PRN #20 tablet 02/09/18 12/04/19 3 Days Ago Rx ~12/01/19 Sulfamethoxazole/Trimethoprim 1 each PO BID 10 Days #20 tablet 02/09/18 12/04/19 3 Days Ago Rx [Bactrim DS TAB] ~12/01/19 Active Meds: Active Medications Acetaminophen (Tylenol) 650 mg PO Q4H PRN PRN Reason: Pain MILD(1-3)/Fever >100.5/LIU Last Admin: 12/04/19 04:53 Dose: 650 mg Documented by: Albuterol (Proventil) 2.5 mg IH Q4HRT PRN PRN Reason: Shortness Of Breath Azithromycin (Zithromax) 500 mg PO QDAY [facility] Last Admin: 12/04/19 10:19 Dose: 500 mg Documented by: Benzonatate (Tessalon Perles) 100 mg PO Q8HR PRN PRN Reason: cough Last Admin: 12/03/19 23:00 Dose: 100 mg Documented by: Enoxaparin Sodium (Enoxaparin) 80 mg SUB-Q Q12HR [facility] Last Admin: 12/04/19 10:19 Dose: 80 mg Documented by: Famotidine (Pepcid) 20 mg PO BID [facility] Last Admin: 12/04/19 10:19 Dose: 20 mg Documented by: Hydromorphone HCl (Dilaudid) 0.5 mg IV Q3H PRN PRN Reason: Pain , Severe (7-10) Ceftriaxone Sodium (Rocephin/Ns 2 Gm/100 Ml) 2 gm in 100 mls @ 200 mls/hr IV Q24HR [facility]; Protocol Last Admin: 12/04/19 10:19 Dose: 200 mls/hr Documented by: Multivitamins/Minerals (Caltrate Plus) 1 each PO BID [facility] Last Admin: 12/04/19 10:19 Dose: 1 each Documented by: Ondansetron HCl (Zofran) 4 mg IV Q8H PRN PRN Reason: Nausea And Vomiting Oxycodone/Acetaminophen (Percocet 5/325) 1 tab PO Q6H PRN PRN Reason: Pain, Moderate (4-6) Pseudoephedrine/Acetam/Chlorphenir (Robitussin Ac) 10 ml PO Q6H PRN PRN Reason: Cough Last Admin: 12/04/19 04:52 Dose: 10 ml Documented by: Sodium Chloride (Sodium Chloride Flush Syringe 10 Ml) 10 ml IV BID [facility] Last Admin: 12/04/19 10:20 Dose: 10 ml Documented by: Sodium Chloride (Sodium Chloride Flush Syringe 10 Ml) 10 ml IV PRN PRN PRN Reason: LINE FLUSH Physical Examination - Physical Exam Narrative exam: General appearance: Alert in NAD Eyes: anicteric sclerae, moist conjunctivae; no lid-lag; PERRLA HENT: Atraumatic; oropharynx clear Lungs: bilateral rhonchi CV: RRR no murmur Abdomen: Soft, non-tender; no masses or hepatosplenomegaly Extremities: no edema, no cyanosis Skin: No rash. Psych: Appropriate affect, alert and oriented to person, place and time. Neuro: alert and oriented x 3. Moving all extermities - Constitutional Vitals: Vital Signs Temp Pulse Resp BP Pulse Ox 99.5 F 131 H 18 92/57 96 12/04/19 07:01 12/04/19 10:00 12/04/19 07:01 12/04/19 07:01 12/04/19 04:21 Temperature -Last 24 Hours Temperature 99.5 F Temperature 103.0 F Temperature 100.6 F Temperature 100.2 F Temperature 100.3 F Results - Labs CBC & Chem 7: 12/02/19 15:21 12/03/19 05:54 Assessment and Plan Cultures: COVID test negative. Blood culture12/02/2019-. Assessment: 35 years old male without any medical history, admitted on 12/03/2019 due to a week history of dry cough associated with malaise, body aches, fever and chills: #Persistent high fever: Likely due to pneumonia +/-generalized lymphadenopathy of unclear etiology #Right extensive pneumonia: Possibly bacterial given elevated procalcitonin, other possibility could be opportunistic PJP however noted typical picture on chest CT, less likely invasive fungal pneumonia. Chest x-ray showed patchy bilateral pneumonia mainly to the right. CTA showed extensive lymphadenopathies in bilateral axilla, neck, chest, mediastinum, fransisco, upper retroperitoneal, mild hepatosplenomegaly, extensive right perihilar and middle lobe infiltrates. #Generalized lymphadenopathies, associated with hepatosplenomegaly, weight loss and fever: Possibly due to acute HIV infection, mononucleosis or less likely malignancy. Patient is bisexual, last HIV test was done 3 years ago, negative. #Anemia/thrombocytopenia: unclear etiology ? HIV #Elevated d-dimer: CTA showed no PE Recommendations: Continue ceftriaxone 2 g IV once a day Continue azithromycin Add Bactrim DS 2 tabs every 8 hours to cover empirically for PGP pneumonia Obtain HIV fourth-generation, HIV viral load and CD4 Follow-up blood cultures Obtain EBV panel and PCR, obtain CMV serology Obtain Strep pneumoniae urine antigen and legionella antigen Obtain AFB blood culture, Aspergillus antigen and Cryptococcal antigen If HIV is negative, consult heme-onc, bone marrow and obtain CT of abdomen Will follow. Dania Colon MD [facility] M [phone] O [phone]
[2019-12-04] MEDS: SULFAMETHOXAZOLE/TRIMETHOPRIM 800/160MG DS TAB PO SCH ×2 (17:55→21:44)
--- NOTE | 2019-12-04 18:18 | Progress Note ---
Assessment and Plan - Patient Problems (1) Right lower lobe pneumonia Current Visit: Yes Status: Acute Plan to address problem: Patient started on Rocephin and Zithromax. Coronavirus PCR to rule out coronavirus. Coronavirus PCR negative. R/o HIV (2) D-dimer, elevated Current Visit: Yes Status: Acute Plan to address problem: Patient initiated on Lovenox 80 mg twice a day CT angiogram to rule out PE. 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, due to other external agents Plan to address problem: Anemia work-up (4) Lymphadenopathy syndrome Current Visit: Yes Status: Acute Plan to address problem: cERVICAL AXILLARY Mediastinal and retroperitonael Lymphadenopathy r/o LymphomA/hIV (5) DVT prophylaxis Current Visit: Yes Status: Acute Plan to address problem: On heparin and GI prophylaxis (6) Discharge planning issues Current Visit: Yes Status: Acute Plan to address problem: Patient maybe discharged after HIV test comes back./ Lymphadenopathy work up as out patient Subjective Date of service: 12/04/19 Principal diagnosis: Right lower lobe pneumonia Interval history: 34-year-old -English male with no significant past medical history comes in for fever and chills since . Patient had vomited several times on . Patient has cough and has been taking [id number] medicines. Patient also having epigastric pain from coughing. 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 No diarrhea. No exposure to any coronavirus patients. POersistent fever Interval improvement present. Objective - Constitutional Vitals: Vital Signs - 12hr 12/04/19 12/04/19 07:01 10:00 Temperature 99.5 F Pulse Rate 131 H Respiratory 18 Rate Blood Pressure 92/57 General appearance: Present: no acute distress, well-nourished - EENT Eyes: PERRL, EOM intact ENT: hearing intact, clear oral mucosa Ears: bilateral: normal - Neck Neck: supple, normal ROM - Respiratory Respiratory effort: normal Respiratory: bilateral: CTA - Breasts Breasts: normal - Cardiovascular Heart rate: 68 Rhythm: regular Heart Sounds: Present: S1 & S2. Absent: gallop, rub Extremities: pulses intact, No edema, normal color, Full ROM - Gastrointestinal General gastrointestinal: Present: soft, non-tender, non-distended, normal bowel sounds - Genitourinary Male genitourinary: normal - Integumentary Integumentary: clear, warm, dry - Musculoskeletal Musculoskeletal: 1, strength equal bilaterally - Neurologic Neurologic: moves all extremities - Psychiatric Psychiatric: memory intact, appropriate mood/affect, intact judgment & insight - Labs CBC & Chem 7: 12/02/19 15:21 12/03/19 05:54
[2019-12-05] MEDS: ACETAMINOPHEN 325 MG TAB PO PRN ×3 (00:35→13:59)
[2019-12-05] MEDS: guaiFENesin/CODEINE 100-10MG ORAL LIQD 5 ML PO PRN ×2 (00:36→14:00)
[2019-12-05 05:15] LABS: Hematocrit 28.5 % (35.5-45.6); Hemoglobin 9.3 gm/dl (11.8-15.2); Mean Corpuscular HGB Conc 33 % (32-34); Mean Corpuscular Volume 79 fl (84-94); Red Blood Count 3.63 M/mm3 (3.65-5.03); Red Cell Distribution Width 16.3 % (13.2-15.2)
[2019-12-05 05:32] LABS: Alanine Aminotransferase 27 units/L (7-56); Albumin 2.3 g/dL (3.9-5); BUN/Creatinine Ratio 15; Blood Urea Nitrogen 16 mg/dL (9-20); Hemolysis Index 5
[2019-12-05 05:35] LABS: Platelet Count 96 K/mm3 (140-440)
[2019-12-05] MEDS: SULFAMETHOXAZOLE/TRIMETHOPRIM 800/160MG DS TAB PO SCH ×3 (06:20→22:12)
[2019-12-05 06:45] LABS: Anisocytosis Few; Band Neutrophils # (Manual) 0.1 K/mm3; Basophils % (Manual) 0 % (0.0-1.8); Eosinophils % (Manual) 0 % (0.0-4.3); Hypochromasia 1+; Platelet Estimate Consistent w Auto; Total Cells Counted 100
[2019-12-05] MEDS: AZITHROMYCIN 250 MG TAB PO SCH (10:09)
[2019-12-05] MEDS: FAMOTIDINE 20 MG TAB PO SCH ×2 (10:09→22:12)
[2019-12-05] MEDS: CALCIUM CARB/VIT D3/MINERALS 600 MG/800 UNITS TAB PO SCH ×2 (10:09→22:12)
[2019-12-05] MEDS: cefTRIAXone/NS 2 GM/100 ML 2 GM/100 ML BAG IV SCH (10:10)
--- NOTE | 2019-12-05 13:07 | Progress Note ---
Assessment and Plan / Right lower lobe pneumonia Patient started on Rocephin and Zithromax. Coronavirus PCR to rule out coronavirus - negative. R/o HIV, continue to spike high fever, ID following / D-dimer, elevated s/p Lovenox 80 mg twice a day CT angiogram to rule out PE.: No PE Change to Lovenox 40 mg sq qd /Anemia of CD Anemia work-up ordered / Lymphadenopathy syndrome CERVICAL AXILLARY Mediastinal and retroperitonael Lymphadenopathy r/o LymphomA/hIV -test result pending / DVT prophylaxis On heparin and GI prophylaxis /Discharge planning issues Patient maybe discharged after HIV test comes back and remains afebrile Lymphadenopathy work up as out patient Brief history: 34-year-old -[place] male with no significant past medical history comes in for fever and chills since . Patient had vomited several times on . Patient has cough and has been taking [id number] medicines. Patient also having epigastric pain from coughing. 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 No diarrhea. No exposure to any coronavirus patients. Negative for COVID-19. Persistent fever, HIV test pending, ID following. Physical exam: General appearance: Alert in NAD Eyes: anicteric sclerae, moist conjunctivae; no lid-lag; PERRLA HENT: Atraumatic; oropharynx clear Lungs: bilateral rhonchi CV: RRR no murmur Abdomen: Soft, non-tender; no masses or hepatosplenomegaly Extremities: no edema, no cyanosis Skin: No rash. Psych: Appropriate affect, alert and oriented to person, place and time. Neuro: alert and oriented x 3. Moving all extermities Subjective Date of service: 12/05/19 Principal diagnosis: Right lower lobe pneumonia Interval history: Patient seen and examined. Medical records and medication list reviewed. No acute event overnight noted by the RN. Patient continues to spiking high fever. Patient is tolerating diet. Discussed plan of care at bedside with patient. Objective - Constitutional Vitals: Vital Signs - 12hr 12/05/19 12/05/19 12/05/19 04:16 07:29 08:10 Temperature 100.5 F H 99.4 F Pulse Rate 109 H 107 H Respiratory 18 19 18 Rate Blood Pressure 94/54 86/54 Blood Pressure [Left] O2 Sat by Pulse 94 92 Oximetry 12/05/19 12/05/19 10:00 10:12 Temperature 99.4 F Pulse Rate 105 H 107 H Respiratory 19 Rate Blood Pressure Blood Pressure 86/54 [Left] O2 Sat by Pulse 91 Oximetry - Labs CBC & Chem 7: 12/05/19 04:09 12/05/19 04:09 Labs: Abnormal lab results 12/05/19 12/05/19 Range/Units 04:09 04:09 RBC 3.63 L (3.65-5.03) M/mm3 Hgb 9.3 L (11.8-15.2) gm/dl Hct 28.5 L (35.5-45.6) % MCV 79 L (84-94) fl MCH 26 L (28-32) pg RDW 16.3 H (13.2-15.2) % Plt Count 96 L (140-440) K/mm3 Seg Neuts % (Manual) 86.0 H (40.0-70.0) % Lymphocytes % (Manual) 6.0 L (13.4-35.0) % Lymphocytes # (Manual) 0.4 L (1.2-5.4) K/mm3 Sodium 126 L (137-145) mmol/L Chloride 94.6 L (98-107) mmol/L Calcium 8.0 L (8.4-10.2) mg/dL AST 50 H (5-40) units/L Albumin 2.3 L (3.9-5) g/dL
--- NOTE | 2019-12-05 14:52 | Progress Note ---
Assessment and Plan Cultures: COVID test negative. Blood culture12/02/2019-. Assessment: 35 years old male without any medical history, admitted on 12/03/2019 due to a week history of dry cough associated with malaise, body aches, fever and chills: #Persistent high fever: Likely due to pneumonia +/-generalized lymphadenopathy of unclear etiology #Right extensive pneumonia: Possibly bacterial given elevated procalcitonin, other possibility could be opportunistic PJP however noted typical picture on chest CT, less likely invasive fungal pneumonia. Chest x-ray showed patchy bilateral pneumonia mainly to the right. CTA showed extensive lymphadenopathies in bilateral axilla, neck, chest, mediastinum, fransisco, upper retroperitoneal, mild hepatosplenomegaly, extensive right perihilar and middle lobe infiltrates. #Generalized lymphadenopathies, associated with hepatosplenomegaly, weight loss and fever: Possibly due to acute HIV infection, mononucleosis or less likely malignancy. Patient is bisexual, last HIV test was done 3 years ago, negative. #Anemia/thrombocytopenia: unclear etiology ? HIV #Elevated d-dimer: CTA showed no PE Recommendations: Continue ceftriaxone 2 g IV once a day Continue azithromycin Add Bactrim DS 2 tabs every 8 hours to cover empirically for PJP pneumonia Obtain HIV fourth-generation, HIV viral load and CD4 - pending Follow-up blood cultures Follow up EBV panel and PCR, obtain CMV serology Follow up Strep pneumoniae urine antigen and legionella antigen Follow up AFB blood culture, Aspergillus antigen and Cryptococcal antigen If HIV is negative, consult heme-onc, bone marrow and obtain CT of abdomen Obtain Antonio Garcia MD [facility] M: [phone] O: [phone] F: [phone] Subjective Date of service: 12/05/19 Principal diagnosis: Right lower lobe pneumonia Interval history: Ongoing fevers to 103.1 with a normal white count. Objective - Exam Narrative Exam: General appearance: Alert in NAD Eyes: anicteric sclerae, moist conjunctivae; no lid-lag; PERRLA HENT: Atraumatic; oropharynx clear Lungs: bilateral rhonchi CV: RRR no murmur Abdomen: Soft, non-tender; no masses or hepatosplenomegaly Extremities: no edema, no cyanosis Skin: No rash. Psych: Appropriate affect, alert and oriented to person, place and time. Neuro: alert and oriented x 3. Moving all extremities - Constitutional Vitals: Vital Signs Temp Pulse Resp BP Pulse Ox 99.4 F 107 H 19 86/54 91 12/05/19 10:12 12/05/19 10:12 12/05/19 10:12 12/05/19 10:12 12/05/19 10:12 Temperature -Last 24 Hours Temperature 99.4 F Temperature 99.4 F Temperature 100.5 F Temperature 103.1 F Temperature 100.2 F - Labs CBC & Chem 7: 12/05/19 04:09 12/05/19 04:09 Labs: Abnormal lab results 12/05/19 12/05/19 Range/Units 04:09 04:09 RBC 3.63 L (3.65-5.03) M/mm3 Hgb 9.3 L (11.8-15.2) gm/dl Hct 28.5 L (35.5-45.6) % MCV 79 L (84-94) fl MCH 26 L (28-32) pg RDW 16.3 H (13.2-15.2) % Plt Count 96 L (140-440) K/mm3 Seg Neuts % (Manual) 86.0 H (40.0-70.0) % Lymphocytes % (Manual) 6.0 L (13.4-35.0) % Lymphocytes # (Manual) 0.4 L (1.2-5.4) K/mm3 Sodium 126 L (137-145) mmol/L Chloride 94.6 L (98-107) mmol/L Calcium 8.0 L (8.4-10.2) mg/dL AST 50 H (5-40) units/L Albumin 2.3 L (3.9-5) g/dL
[2019-12-05] MEDS: ENOXAPARIN 40 MG/0.4 ML INJ SUB-Q SCH (22:13)
[2019-12-06] MEDS: ACETAMINOPHEN 325 MG TAB PO PRN ×3 (04:25→20:10)
[2019-12-06] MEDS: guaiFENesin/CODEINE 100-10MG ORAL LIQD 5 ML PO PRN (04:26)
[2019-12-06] MEDS: SULFAMETHOXAZOLE/TRIMETHOPRIM 800/160MG DS TAB PO SCH ×3 (06:12→22:00)
[2019-12-06] MEDS: cefTRIAXone/NS 2 GM/100 ML 2 GM/100 ML BAG IV SCH (09:47)
[2019-12-06] MEDS: CALCIUM CARB/VIT D3/MINERALS 600 MG/800 UNITS TAB PO SCH ×2 (09:47→22:00)
[2019-12-06] MEDS: FAMOTIDINE 20 MG TAB PO SCH ×2 (09:47→22:00)
[2019-12-06] MEDS: AZITHROMYCIN 250 MG TAB PO SCH (09:47)
--- NOTE | 2019-12-06 13:35 | Progress Note ---
Assessment and Plan Cultures: COVID test negative. Blood culture12/02/2019-. Assessment: 35 years old male without any medical history, admitted on 12/03/2019 due to a week history of dry cough associated with malaise, body aches, fever and chills: #Persistent high fever: Likely due to pneumonia +/-generalized lymphadenopathy of unclear etiology #Right extensive pneumonia: Possibly bacterial given elevated procalcitonin, other possibility could be opportunistic PJP however noted typical picture on chest CT, less likely invasive fungal pneumonia. Chest x-ray showed patchy bilateral pneumonia mainly to the right. CTA showed extensive lymphadenopathies in bilateral axilla, neck, chest, mediastinum, fransisco, upper retroperitoneal, mild hepatosplenomegaly, extensive right perihilar and middle lobe infiltrates. #Generalized lymphadenopathies, associated with hepatosplenomegaly, weight loss and fever: Possibly due to acute HIV infection, mononucleosis or less likely malignancy. Patient is bisexual, last HIV test was done 3 years ago, negative. #Anemia/thrombocytopenia: unclear etiology ? HIV #Elevated d-dimer: CTA showed no PE Recommendations: Continue ceftriaxone 2 g IV once a day Continue azithromycin Add Bactrim DS 2 tabs every 8 hours to cover empirically for PJP pneumonia Obtain HIV fourth-generation, HIV viral load and CD4 - pending Follow-up blood cultures Follow up EBV panel and PCR, obtain CMV serology Follow up Strep pneumoniae urine antigen and legionella antigen Follow up AFB blood culture, Aspergillus antigen and Cryptococcal antigen If HIV is negative, consult heme-onc, bone marrow and obtain CT of abdomen Obtain Fungitell -these tests may take some time to return. Would at least like to see if HIV or negative. Agree with heme consult, follow up results. Moses Garcia MD [facility] ([facility]) M: [phone] O: [phone] F: [phone] Subjective Date of service: 12/06/19 Principal diagnosis: Right lower lobe pneumonia Interval history: Febrile to 101.9 with a normal white count. Objective - Exam Narrative Exam: General appearance: Alert in NAD Eyes: anicteric sclerae, moist conjunctivae; no lid-lag; PERRLA HENT: Atraumatic; oropharynx clear Lungs: bilateral rhonchi CV: RRR no murmur Abdomen: Soft, non-tender; no masses or hepatosplenomegaly Extremities: no edema, no cyanosis Skin: No rash. Psych: Appropriate affect, alert and oriented to person, place and time. Neuro: alert and oriented x 3. Moving all extremities - Constitutional Vitals: Vital Signs Temp Pulse Resp BP Pulse Ox 99.3 F 107 H 18 100/58 97 12/06/19 12:45 12/06/19 12:45 12/06/19 12:45 12/06/19 12:45 12/06/19 12:45 Temperature -Last 24 Hours Temperature 99.3 F Temperature 98.3 F Temperature 99.4 F Temperature 101.9 F Temperature 99.9 F Temperature 99.1 F Temperature 98.2 F - Labs CBC & Chem 7: 12/05/19 04:09 12/05/19 04:09
--- NOTE | 2019-12-06 14:06 | Progress Note ---
Assessment and Plan /Persistent high fever: Likely due to pneumonia +/-generalized lymphadenopathy Will follow HIV test which is currently pending If HIV negative, need further work-up for possible lymphoma / Right lower lobe pneumonia Patient started on Rocephin and Zithromax. Coronavirus PCR to rule out coronavirus - negative. R/o HIV, continue to spike high fever, ID following / D-dimer, elevated s/p Lovenox 80 mg twice a day CT angiogram to rule out PE.: No PE Change to Lovenox 40 mg sq qd /Anemia of CD Anemia work-up ordered / Lymphadenopathy syndrome CERVICAL AXILLARY Mediastinal and retroperitonael Lymphadenopathy r/o LymphomA/hIV -hiv test result pending If negative for HIV we will consult heme-onc for possible lymphoma / DVT prophylaxis On heparin and GI prophylaxis /Discharge planning issues Patient maybe discharged after HIV test comes back and remains afebrile Lymphadenopathy work up as out patient -HIV test still pending, patient remained febrile with high temp Brief history: 34-year-old -Welsh male with no significant past medical history comes in for fever and chills since . Patient had vomited several times on . Patient has cough and has been taking kvbs-smm-lhltzuv medicines. Patient also having epigastric pain from coughing. 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 No diarrhea. No exposure to any coronavirus patients. Negative for COVID-19. Persistent fever, HIV test pending, ID following. Physical exam: General appearance: Alert in NAD Eyes: anicteric sclerae, moist conjunctivae; no lid-lag; PERRLA HENT: Atraumatic; oropharynx clear Lungs: bilateral rhonchi CV: RRR no murmur Abdomen: Soft, non-tender; no masses or hepatosplenomegaly Extremities: no edema, no cyanosis Skin: No rash. Psych: Appropriate affect, alert and oriented to person, place and time. Neuro: alert and oriented x 3. Moving all extermities Subjective Date of service: 12/06/19 Principal diagnosis: Right lower lobe pneumonia Interval history: Patient seen and examined. Medical records and medication list reviewed. No acute event overnight noted by the RN. Patient continues to spiking high fever. Patient is tolerating diet. Discussed plan of care at bedside with patient. Pending HIV test Objective - Constitutional Vitals: Vital Signs - 12hr 12/06/19 12/06/19 12/06/19 03:38 05:00 08:21 Temperature 101.9 F H 99.4 F Pulse Rate 68 107 H Respiratory 18 19 Rate Blood Pressure 99/47 80/48 Blood Pressure [Left] O2 Sat by Pulse 92 96 Oximetry 12/06/19 12/06/19 09:52 12:45 Temperature 98.3 F 99.3 F Pulse Rate 101 H 107 H Respiratory 18 Rate Blood Pressure Blood Pressure 94/55 100/58 [Left] O2 Sat by Pulse 97 Oximetry - Labs CBC & Chem 7: 12/05/19 04:09 12/05/19 04:09
[2019-12-06] MEDS: ENOXAPARIN 40 MG/0.4 ML INJ SUB-Q SCH (22:02)
[2019-12-07] MEDS: ACETAMINOPHEN 325 MG TAB PO PRN ×3 (04:32→21:29)
[2019-12-07] MEDS: SULFAMETHOXAZOLE/TRIMETHOPRIM 800/160MG DS TAB PO SCH ×3 (06:06→21:25)
[2019-12-07] MEDS: AZITHROMYCIN 250 MG TAB PO SCH (09:43)
[2019-12-07] MEDS: CALCIUM CARB/VIT D3/MINERALS 600 MG/800 UNITS TAB PO SCH ×2 (09:43→21:25)
[2019-12-07] MEDS: cefTRIAXone/NS 2 GM/100 ML 2 GM/100 ML BAG IV SCH (09:44)
[2019-12-07] MEDS: FAMOTIDINE 20 MG TAB PO SCH ×2 (09:44→21:25)
[2019-12-07 11:40] LABS: BUN/Creatinine Ratio 16; Blood Urea Nitrogen 18 mg/dL (9-20); Calcium 7.8 mg/dL (8.4-10.2); Hemolysis Index 8
[2019-12-07 11:43] LABS: Iron 14 ug/dL (49-181); Total Iron Binding Capacity 192 mcg/dL (250-450)
--- NOTE | 2019-12-07 12:42 | Progress Note ---
Assessment and Plan /Persistent high fever: Likely due to pneumonia +/-generalized lymphadenopathy Will follow HIV test which is currently pending If HIV negative, need further work-up for possible lymphoma / Right lower lobe pneumonia Patient started on Rocephin and Zithromax. Coronavirus PCR to rule out coronavirus - negative. R/o HIV, continue to spike high fever, ID following / D-dimer, elevated s/p Lovenox 80 mg twice a day CT angiogram to rule out PE.: No PE Change to Lovenox 40 mg sq qd /Anemia of CD Anemia work-up ordered / Lymphadenopathy syndrome CERVICAL AXILLARY Mediastinal and retroperitonael Lymphadenopathy r/o LymphomA/hIV -hiv test result pending If negative for HIV we will consult heme-onc for possible lymphoma / DVT prophylaxis On heparin and GI prophylaxis /Discharge planning issues Patient maybe discharged after HIV test comes back and remains afebrile Lymphadenopathy work up as out patient -HIV test still pending, patient remained febrile with high temp. not stable for discharge Brief history: 34-year-old -Fijian male with no significant past medical history comes in for fever and chills since . Patient had vomited several times on . Patient has cough and has been taking copb-agt-gzdmyge medicines. Patient also having epigastric pain from coughing. 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 No diarrhea. No exposure to any coronavirus patients. Negative for COVID-19. Persistent fever, HIV test pending, ID following. Physical exam: General appearance: Alert in NAD Eyes: anicteric sclerae, moist conjunctivae; no lid-lag; PERRLA HENT: Atraumatic; oropharynx clear Lungs: bilateral rhonchi CV: RRR no murmur Abdomen: Soft, non-tender; no masses or hepatosplenomegaly Extremities: no edema, no cyanosis Skin: No rash. Psych: Appropriate affect, alert and oriented to person, place and time. Neuro: alert and oriented x 3. Moving all extermities Subjective Date of service: 12/07/19 Principal diagnosis: Right lower lobe pneumonia Interval history: Patient seen and examined. Medical records and medication list reviewed. No acute event overnight noted by the RN. Patient continues to spiking high fever. Patient is tolerating diet. Discussed plan of care at bedside with patient. Pending HIV test result Objective - Constitutional Vitals: Vital Signs - 12hr 12/07/19 12/07/19 12/07/19 04:32 07:15 08:00 Temperature 99.3 F Pulse Rate 78 100 H Respiratory 18 18 Rate Blood Pressure 86/49 Blood Pressure [Left] O2 Sat by Pulse 70 L Oximetry 12/07/19 12/07/19 09:42 11:17 Temperature 97.8 F 98.2 F Pulse Rate 109 H 99 H Respiratory 18 18 Rate Blood Pressure 90/50 Blood Pressure 93/56 [Left] O2 Sat by Pulse 97 Oximetry - Labs CBC & Chem 7: 12/05/19 04:09 12/07/19 11:00 Labs: Abnormal lab results 12/07/19 12/07/19 Range/Units 11:00 11:00 Sodium 126 L (137-145) mmol/L Chloride 95.3 L (98-107) mmol/L Carbon Dioxide 19 L (22-30) mmol/L Glucose 104 H (75-100) mg/dL Calcium 7.8 L (8.4-10.2) mg/dL Iron 14 L (49-181) ug/dL TIBC 192 L (250-450) mcg/dL
--- NOTE | 2019-12-07 14:29 | Progress Note ---
Assessment and Plan Cultures: COVID test negative. Blood culture12/02/2019-. Assessment: 35 years old male without any medical history, admitted on 12/03/2019 due to a week history of dry cough associated with malaise, body aches, fever and chills: #Persistent high fever: Likely due to pneumonia +/-generalized lymphadenopathy of unclear etiology #Right extensive pneumonia: Possibly bacterial given elevated procalcitonin, other possibility could be opportunistic PJP however noted typical picture on chest CT, less likely invasive fungal pneumonia. Chest x-ray showed patchy bilateral pneumonia mainly to the right. CTA showed extensive lymphadenopathies in bilateral axilla, neck, chest, mediastinum, fransisco, upper retroperitoneal, mild hepatosplenomegaly, extensive right perihilar and middle lobe infiltrates. #Generalized lymphadenopathies, associated with hepatosplenomegaly, weight loss and fever: Possibly due to acute HIV infection, mononucleosis or less likely malignancy. Patient is bisexual, last HIV test was done 3 years ago, negative. #Anemia/thrombocytopenia: unclear etiology ? HIV #Elevated d-dimer: CTA showed no PE Recommendations: Continue ceftriaxone 2 g IV once a day Continue azithromycin Add Bactrim DS 2 tabs every 8 hours to cover empirically for PJP pneumonia Obtain HIV fourth-generation, HIV viral load and CD4 - pending Follow-up blood cultures Follow up EBV panel and PCR, obtain CMV serology Follow up Strep pneumoniae urine antigen and legionella antigen Follow up AFB blood culture, Aspergillus antigen and Cryptococcal antigen If HIV is negative, consult heme-onc, bone marrow and obtain CT of abdomen Pending Fungitell -these tests may take some time to return. Would at least like to see if HIV or negative. Agree with heme consult, follow up results. Moses Garcia MD [facility] ([facility]) M: [phone] O: [phone] F: [phone] Subjective Date of service: 12/07/19 Principal diagnosis: Right lower lobe pneumonia Interval history: Febrile to 101.4 with a normal white count. Objective - Exam Narrative Exam: General appearance: Alert in NAD Eyes: anicteric sclerae, moist conjunctivae; no lid-lag HENT: Atraumatic; oropharynx clear Lungs: bilateral rhonchi CV: RRR no murmur Abdomen: Soft, non-tender; no masses or hepatosplenomegaly Extremities: no edema, no cyanosis Skin: No rash. Psych: Appropriate affect, alert and oriented to person, place and time. Neuro: alert and oriented x 3. Moving all extremities - Constitutional Vitals: Vital Signs Temp Pulse Resp BP Pulse Ox 98.2 F 99 H 18 90/50 97 12/07/19 11:17 12/07/19 11:17 12/07/19 11:17 12/07/19 11:17 12/07/19 11:17 Temperature -Last 24 Hours Temperature 98.2 F Temperature 97.8 F Temperature 99.3 F Temperature 100.0 F Temperature 101.4 F Temperature 99.5 F Temperature 100.6 F Temperature 100.1 F - Labs CBC & Chem 7: 12/05/19 04:09 12/07/19 11:00 Labs: Abnormal lab results 12/07/19 12/07/19 Range/Units 11:00 11:00 Sodium 126 L (137-145) mmol/L Chloride 95.3 L (98-107) mmol/L Carbon Dioxide 19 L (22-30) mmol/L Glucose 104 H (75-100) mg/dL Calcium 7.8 L (8.4-10.2) mg/dL Iron 14 L (49-181) ug/dL TIBC 192 L (250-450) mcg/dL
[2019-12-07] MEDS: SODIUM CHLORIDE 0.9% 1000 ML 1,000 ML IV SCH (14:36)
[2019-12-07 15:48] LABS: HIV-1 RNA QN PCR 5.57 Log cps/mL
[2019-12-07] MEDS: guaiFENesin/CODEINE 100-10MG ORAL LIQD 5 ML PO PRN (17:41)
[2019-12-07] MEDS: ENOXAPARIN 40 MG/0.4 ML INJ SUB-Q SCH (21:25)
[2019-12-08] MEDS: SODIUM CHLORIDE 0.9% 1000 ML 1,000 ML IV SCH (02:40)
[2019-12-08] MEDS: ACETAMINOPHEN 325 MG TAB PO PRN ×2 (04:13→21:17)
[2019-12-08] MEDS: SULFAMETHOXAZOLE/TRIMETHOPRIM 800/160MG DS TAB PO SCH ×3 (05:25→21:16)
--- NOTE | 2019-12-08 09:26 | Hem/Onc Consultation ---
History of Present Illness - Reason for Consult Consult date: 12/08/19 LN - ? lymphoma Requesting physician: BRE CASTILLO - History of Present Illness History of present illness: 34-year-old -[place] male with no significant past medical history came in for fever and chills since . Patient had vomited several times on . Patient has h/o cough and has been taking edhm-teu-wvohdpf medicines. Patient also having epigastric pain from coughing. 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 during this admission - CT chest showed LN seen by ID - HIV + Medications and Allergies Allergies Allergy/AdvReac Type Severity Reaction Status Date / Time No Known Allergies Allergy Verified 12/02/19 14:17 Home Medications Medication Instructions Recorded Confirmed Last Taken Type Cephalexin [Keflex] 500 mg PO BID #12 capsule 02/10/17 12/04/19 3 Days Ago Rx ~12/01/19 Ibuprofen [Motrin] 800 mg PO Q8HR PRN #30 tablet 02/10/17 12/04/19 3 Days Ago Rx ~12/01/19 Ibuprofen [Motrin 800 MG tab] 800 mg PO Q8HR PRN #20 tablet 02/09/18 12/04/19 3 Days Ago Rx ~12/01/19 Sulfamethoxazole/Trimethoprim 1 each PO BID 10 Days #20 tablet 02/09/18 12/04/19 3 Days Ago Rx [Bactrim DS TAB] ~12/01/19 Active Meds: Active Medications Acetaminophen (Tylenol) 650 mg PO Q4H PRN PRN Reason: Pain MILD(1-3)/Fever >100.5/LIU Last Admin: 12/08/19 04:13 Dose: 650 mg Documented by: Albuterol (Proventil) 2.5 mg IH Q4HRT PRN PRN Reason: Shortness Of Breath Azithromycin (Zithromax) 500 mg PO QDAY [facility] Last Admin: 12/07/19 09:43 Dose: 500 mg Documented by: Benzonatate (Tessalon Perles) 100 mg PO Q8HR PRN PRN Reason: cough Last Admin: 12/03/19 23:00 Dose: 100 mg Documented by: Enoxaparin Sodium (Enoxaparin) 40 mg SUB-Q QDAY@2200 CEFERINO Last Admin: 12/07/19 21:25 Dose: 40 mg Documented by: Famotidine (Pepcid) 20 mg PO BID [facility] Last Admin: 12/07/19 21:25 Dose: 20 mg Documented by: Hydromorphone HCl (Dilaudid) 0.5 mg IV Q3H PRN PRN Reason: Pain , Severe (7-10) Ceftriaxone Sodium (Rocephin/Ns 2 Gm/100 Ml) 2 gm in 100 mls @ 200 mls/hr IV Q24HR [facility]; Protocol Last Admin: 12/07/19 09:44 Dose: 200 mls/hr Documented by: Sodium Chloride (Nacl 0.9% 1000 Ml) 1,000 mls @ 75 mls/hr IV DIRECT [facility] Last Admin: 12/08/19 02:40 Dose: 75 mls/hr Documented by: Multivitamins/Minerals (Caltrate Plus) 1 each PO BID [facility] Last Admin: 12/07/19 21:25 Dose: 1 each Documented by: Ondansetron HCl (Zofran) 4 mg IV Q8H PRN PRN Reason: Nausea And Vomiting Oxycodone/Acetaminophen (Percocet 5/325) 1 tab PO Q6H PRN PRN Reason: Pain, Moderate (4-6) Pseudoephedrine/Acetam/Chlorphenir (Robitussin Ac) 10 ml PO Q6H PRN PRN Reason: Cough Last Admin: 12/07/19 17:41 Dose: 10 ml Documented by: Sodium Chloride (Sodium Chloride Flush Syringe 10 Ml) 10 ml IV BID [facility] Last Admin: 12/07/19 21:26 Dose: 10 ml Documented by: Sodium Chloride (Sodium Chloride Flush Syringe 10 Ml) 10 ml IV PRN PRN PRN Reason: LINE FLUSH Trimethoprim/Sulfamethoxazole (Bactrim Ds) 2 each PO Q8HR [facility] Last Admin: 12/08/19 05:25 Dose: 2 each Documented by: Exam - Exam Narrative Exam: exam reviwed - Constitutional Vitals: Last Vital Signs Temp 99.4 F 12/08/19 07:01 Pulse 101 H 12/08/19 08:00 Resp 18 12/08/19 07:01 BP 85/51 12/08/19 07:01 Pulse Ox 95 12/08/19 07:01 Results - Labs lab Results: Laboratory Results - last 24 hr 12/04/19 12/07/19 12/07/19 14:47 11:00 11:00 Sodium 126 L Potassium 4.7 Chloride 95.3 L Carbon Dioxide 19 L Anion Gap 16 BUN 18 Creatinine 1.1 Estimated GFR > 60 BUN/Creatinine Ratio 16 Glucose 104 H Calcium 7.8 L Iron 14 L TIBC 192 L Vitamin B12 HIV-1 RNA PCR copies/ml 221570 H HIV-1 RNA (PCR) log 5.57 H 12/07/19 11:00 Sodium Potassium Chloride Carbon Dioxide Anion Gap BUN Creatinine Estimated GFR BUN/Creatinine Ratio Glucose Calcium Iron TIBC Vitamin B12 241.7 HIV-1 RNA PCR copies/ml HIV-1 RNA (PCR) log Assessment and Plan # Lymphadenopathy syndrome CERVICAL AXILLARY Mediastinal and retroperitonael Lymphadenopathy r/o LymphomA -hiv test result positive CT abdomen/pelvis Officially - as I am moving to a diff practice - pt would need a diff oncologist - in-pt vs OP #HIV, new diagnosis - ID following # h/o high fever: Likely due to pneumonia +/-generalized lymphadenopathy likely from HIV as test is positive #D-dimer, elevated CT angiogram - No PE # Anemia b12 low normal - oral repacement high ferritin - low iron - needs to be followed ` - Patient Problems (1) Lymphadenopathy syndrome Current Visit: Yes Status: Acute
--- NOTE | 2019-12-08 11:07 | Cat Scan Report ---
CT abdomen pelvis w con INDICATION: MAIN: hiv - lymphoma 100 ML OMNI 300. TECHNIQUE: All CT scans at this location are performed using CT dose reduction for ALARA by means of automated e xposure control. COMPARISON: CT chest dated 12/03/2019 FINDINGS: Small bilateral pleural effusions have increased slightly in the past 5 days, with slightly increased bibasilar atelectasis. Right middle lobe disease persists. Mild hepatosplenomegaly. No focal hepatic or splenic lesions. Gallbladder is unremarkable. Pancreas, kidneys and adrenals are negative. Mild retroperitoneal and retrocrural adenopathy. Pelvis There are multiple slightly enlarged inguinal nodes bilaterally, as well as mild to moderate bilatera l external iliac adenopathy. Urinary bladder is unremarkable. Appendix is thought to be identified an d normal. IMPRESSION: 1. Mild hepatosplenomegaly. 2. Mild to moderate retroperitoneal, retrocrural, bilateral external iliac and bilateral inguinal karina nopathy. Signer Name: Arash Eden MD Signed: 12/08/2019 11:03 AM Workstation Name: [email or web address]
[2019-12-08] MEDS: CYANOCOBALAMIN (VIT B-12) 1000 MCG TAB PO SCH (11:28)
[2019-12-08] MEDS: CALCIUM CARB/VIT D3/MINERALS 600 MG/800 UNITS TAB PO SCH ×2 (11:28→21:16)
[2019-12-08] MEDS: FAMOTIDINE 20 MG TAB PO SCH ×2 (11:28→21:16)
[2019-12-08] MEDS: cefTRIAXone/NS 2 GM/100 ML 2 GM/100 ML BAG IV SCH (11:29)
--- NOTE | 2019-12-08 15:27 | Progress Note ---
Assessment and Plan Cultures: COVID test negative. Blood culture12/02/2019-. Assessment: 35 years old male without any medical history, admitted on 12/03/2019 due to a week history of dry cough associated with malaise, body aches, fever and chills: #Persistent high fever: Possibly due to acute HIV, ?PJP. His statement of not having sex for the past month, he is nearing the end of the time window for acute HIV though it is not impossible. #Right extensive pneumonia: Possibly bacterial given elevated procalcitonin, other possibility could be opportunistic PJP however noted typical picture on chest CT, less likely invasive fungal pneumonia. Chest x-ray showed patchy bilateral pneumonia mainly to the right. CTA showed extensive lymphadenopathies in bilateral axilla, neck, chest, mediastinum, fransisco, upper retroperitoneal, mild hepatosplenomegaly, extensive right perihilar and middle lobe infiltrates. #Generalized lymphadenopathies, associated with hepatosplenomegaly, weight loss and fever: Possibly due to acute HIV infection, mononucleosis or less likely malignancy. Patient is bisexual, last HIV test was done 3 years ago, negative. #Anemia/thrombocytopenia: unclear etiology ? HIV #Elevated d-dimer: CTA showed no PE Recommendations: Continue ceftriaxone 2 g IV once a day and azithromycin. Complete 5 days of therapy today. Add Bactrim DS 2 tabs every 8 hours to cover empirically for PJP pneumonia - continue Obtain HIV fourth-generation, HIV viral load and CD4 - positive VL. Pending CD4 count. Follow up EBV panel and PCR, obtain CMV serology Follow up Strep pneumoniae urine antigen and legionella antigen Follow up AFB blood culture, Aspergillus antigen and Cryptococcal antigen Pending Fungitell Recommend consulting pulm - may want to bronch for possible fungal vs atypical lung infection given persistent fevers Will start ART when Cryptococcal antigen returns. Moses Garcia MD [facility] ([facility]) M: [phone] O: [phone] F: [phone] Subjective Date of service: 12/08/19 Principal diagnosis: Right lower lobe pneumonia Interval history: Recurrently febrile today which is 101.1 degrees. HIV testing has returned positive with a viral load of 363,000 copies. Patient reports that he has not had any sexual contact for approximately a month or so. His cough has been present for several months, and has been coming and going. He also reports shortness of breath. Objective - Exam Narrative Exam: General appearance: Alert in NAD Eyes: anicteric sclerae, moist conjunctivae; no lid-lag HENT: Atraumatic; oropharynx clear Lungs: bilateral rhonchi CV: RRR no murmur Abdomen: Soft, non-tender; no masses or hepatosplenomegaly Extremities: no edema, no cyanosis Skin: No rash. Psych: Appropriate affect, alert and oriented to person, place and time. Neuro: alert and oriented x 3. Moving all extremities - Constitutional Vitals: Vital Signs Temp Pulse Resp BP Pulse Ox 99.4 F 101 H 18 85/51 97 12/08/19 07:01 12/08/19 08:00 12/08/19 07:01 12/08/19 07:01 12/08/19 10:00 Temperature -Last 24 Hours Temperature 99.4 F Temperature 98.4 F Temperature 101.1 F Temperature 99.3 F Temperature 98.8 F Temperature 98.3 F Temperature 102.7 F - Labs CBC & Chem 7: 12/05/19 04:09 12/07/19 11:00 Labs: Abnormal lab results 12/04/19 Range/Units 14:47 HIV-1 RNA PCR copies/ml 561585 H Copies/mL HIV-1 RNA (PCR) log 5.57 H Log cps/mL
[2019-12-08] MEDS: ENOXAPARIN 40 MG/0.4 ML INJ SUB-Q SCH (21:17)
[2019-12-09] MEDS: SULFAMETHOXAZOLE/TRIMETHOPRIM 800/160MG DS TAB PO SCH ×3 (06:27→21:32)
--- NOTE | 2019-12-09 08:17 | Progress Note ---
Assessment and Plan /HIV, new diagnosis - ID following, Continue ceftriaxone 2 g IV once a day and azithromycin to Complete 5 days of therapy today. - Added Bactrim DS 2 tabs every 8 hours to cover empirically for PJP pneumonia - per ID - positive VL. Pending CD4 count. - plan to start ART when Cryptococcal antigen returns. /Persistent high fever: Likely due to pneumonia +/-generalized lymphadenopathy likely from HIV as test is positive heam onc consulted for possible lymphoma Follow up EBV panel and PCR, CMV serology, Strep pneumoniae urine antigen and legionella antigen Follow up AFB blood culture, Aspergillus antigen and Cryptococcal antigen, Pending Fungitell will consult pulm - for possible bronch for possible fungal vs atypical lung infection given persistent fevers / Right lower lobe pneumonia Patient started on Rocephin and Zithromax - last day today. Coronavirus PCR to rule out coronavirus - negative. HIV +, continue to spike high fever, ID following / D-dimer, elevated s/p Lovenox 80 mg twice a day CT angiogram to rule out PE.: No PE Change to Lovenox 40 mg sq qd /Anemia of CD Anemia work-up ordered / Lymphadenopathy syndrome CERVICAL AXILLARY Mediastinal and retroperitonael Lymphadenopathy r/o LymphomA -hiv test result positive consulted heme-onc - ordered CT abdomen/pelvis / DVT prophylaxis On heparin and GI prophylaxis /Discharge planning issues Patient maybe discharged after HIV test comes back and remains afebrile Lymphadenopathy work up as out patient 12/07 -HIV test positive, patient remained febrile with high temp. follow CT abdomen/pelvis, consult pulmonary Brief history: 34-year-old -Romanian male with no significant past medical history comes in for fever and chills since . Patient had vomited several times on . Patient has cough and has been taking anod-hpf-nycwcwa medicines. Patient also having epigastric pain from coughing. 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 No diarrhea. No exposure to any coronavirus tutu ents. Negative for COVID-19. Persistent fever, HIV test positive, ID following. Physical exam: General appearance: Alert in NAD Eyes: anicteric sclerae, moist conjunctivae; no lid-lag; PERRLA HENT: Atraumatic; oropharynx clear Lungs: bilateral rhonchi CV: RRR no murmur Abdomen: Soft, non-tender; no masses or hepatosplenomegaly Extremities: no edema, no cyanosis Skin: No rash. Psych: Appropriate affect, alert and oriented to person, place and time. Neuro: alert and oriented x 3. Moving all extermities Subjective Date of service: 12/08/19 Principal diagnosis: Right lower lobe pneumonia Interval history: Patient seen and examined. Medical records and medication list reviewed. No acute event overnight noted by the RN. Patient continues to spiking high fever. Patient is tolerating diet. Discussed plan of care at bedside with patient. positive HIV test result - updated pt Objective - Constitutional Vitals: Vital Signs - 12hr 12/08/19 12/08/19 12/09/19 22:00 23:13 04:00 Temperature 98.9 F Pulse Rate 107 H 120 H Pulse Rate [ 122 H From Monitor] Respiratory 20 Rate Blood Pressure 97/56 O2 Sat by Pulse 95 Oximetry 12/09/19 12/09/19 04:14 08:06 Temperature 99.4 F Pulse Rate 105 H Pulse Rate [ From Monitor] Respiratory 18 18 Rate Blood Pressure 109/57 O2 Sat by Pulse 100 Oximetry - Labs CBC & Chem 7: 12/05/19 04:09 12/07/19 11:00 Labs: Abnormal lab results 12/04/19 Range/Units 14:47 EBV Capsid Ag IgG Titer >750.00 H (<18.00) U/mL EBV Nuclear Ag IgG Indx 179.00 H (<18.00) U/mL
--- NOTE | 2019-12-09 10:52 | Event Note ---
Date: 12/09/19 Patient did not eat breakfast. Spoke with Endo, will attempt bronch with washing at 11:30.
[2019-12-09] MEDS ORDERED: LIDOCAINE (2%) 20 MG/1 ML VIAL 20 ML MDV INFILTRATI ONE ×2 (10:55→11:09)
[2019-12-09] MEDS ORDERED: MIDAZOLAM 2 MG/2 ML INJ ONE (10:55)
[2019-12-09] MEDS ORDERED: KETAMINE/STERILE WATER 50 MG/ML SYRINGE ONE (10:56)
[2019-12-09] MEDS ORDERED: fentaNYL 100 MCG/2 ML INJ ONE (10:56)
[2019-12-09] MEDS ORDERED: propofoL 200 MG/20 ML VIAL IV ONE ×2 (10:57)
[2019-12-09] MEDS ORDERED: EPINEPHrine 1:10,000 1 MG/10 ML SYRINGE ONE (11:10)
[2019-12-09] MEDS ORDERED: LIDOCAINE VISCOUS 2% 15 ML ORAL LIQD ONE (11:10)
[2019-12-09] MEDS ORDERED: SODIUM CHLORIDE 0.9% 1000 ML 2,000 ML ONE (11:10)
[2019-12-09] MEDS ORDERED: PHENYLEPHRINE/NS 1,000 MCG/10 ML SYRINGE (OR USE) IV ONE (11:11)
[2019-12-09] MEDS ORDERED: BENZOCAINE 20% TOP SPRAY 0.5 ML UNIT DOSE MM ONE (11:28)
[2019-12-09] MEDS ORDERED: ONDANSETRON 4 MG/2 ML INJ ONE (11:37)
--- NOTE | 2019-12-09 12:06 | Anesthesia Day of Surgery ---
Anesthesia Day of Surgery - Day of Surgery Patient Examined: Yes Patient H&P Reviewed: Yes Patient is NPO: Yes
--- NOTE | 2019-12-09 12:06 | Anesthesia Consultation ---
Anesthesia Consult and Med Hx Date of service: 12/09/19 - Airway Anesthetic Teeth Evaluation: Good ROM Head & Neck: Adequate Mental/Hyoid Distance: Adequate Mallampati Class: Class II Intubation Access Assessment: Probably Good - Pulmonary Exam CTA: No - Cardiac Exam Cardiac Exam: RRR (tachycardic) - Pre-Operative Health Status ASA Pre-Surgery Classification: ASA3 Proposed Anesthetic Plan: MAC - Pulmonary Hx Respiratory Symptoms: Yes SOB: Yes Hx Pneumonia: Yes - Cardiovascular System Hx Hypertension: No Hx Heart Attack/AMI: No Hx Percutaneous Transluminal Coronary Angioplasty (PTCA): No - Central Nervous System CVA: No - Gastrointestinal Hx Gastroesophageal Reflux Disease: No - Endocrine Hx Renal Disease: No Hx Liver Disease: No Hx Insulin Dependent Diabetes: No Hx Non-Insulin Dependent Diabetes: No Hx Thyroid Disease: No - Hematic Hx Anemia: Yes - Other Systems Hx Obesity: No - Additional Comments Anesthesia Medical History Comments: New diagnosis HIV with persistent fevers scheduled for diagnostic bronchoscopy. COVID test negative this admission.
--- NOTE | 2019-12-09 12:53 | Procedure Note ---
Date of procedure: 12/09/19 Pre-op diagnosis: Pneumonia Post-op diagnosis: same Procedure: Flexible Bronch with Bronchial Washing After obtaining informed consent, patient taken to endo and prepped. Scope passed through left nare without difficult. Lots of thick mucous. VC seen with good AB and AD duction. Lido applied to VC, trachea and right main stem. What appears to thrush is seen in the posterior oropharynx. None in the lung. Thick secretions seen in the right middle lobe. Bronchial washing taken. Thick blood secretions removed. Tolerated procedure well with no immediate post-op complications. No active bleeding was seen. Anesthesia: MAC Surgeon: BORIS MONTIEL Estimated blood loss: none Specimen disposition: to lab Condition: stable Disposition: floor
--- NOTE | 2019-12-09 13:01 | Post Anesthesia Evaluation ---
- Post Anesthesia Evaluation Patient Participated: Yes Airway Patent: Yes Stable Respiratory Function: Yes Nausea/Vomiting: No Temp > 96.8F: Yes Pain Manageable: Yes Adequeate Hydration: Yes Anesthesia Complications: No
--- NOTE | 2019-12-09 13:11 | Progress Note ---
Assessment and Plan /HIV, new diagnosis - ID following, Continue ceftriaxone 2 g IV once a day and azithromycin to Complete 5 days of therapy today. - Added Bactrim DS 2 tabs every 8 hours to cover empirically for PJP pneumonia - per ID - positive VL. Pending CD4 count. - plan to start ART when Cryptococcal antigen returns. /Persistent high fever: Likely due to pneumonia +/-generalized lymphadenopathy likely from HIV as test is positive heam onc consulted for possible lymphoma Follow up EBV panel and PCR, CMV serology, Strep pneumoniae urine antigen and legionella antigen Follow up AFB blood culture, Aspergillus antigen and Cryptococcal antigen, P ending Fungitell Consulted pulm -s/p Flexible Bronch with Bronchial Washing today - will follow result / Right lower lobe pneumonia Patient started on Rocephin and Zithromax - last day today. Coronavirus PCR to rule out coronavirus - negative. HIV +, continue to spike high fever, ID following /Veronica esophagitis, start on diflucan /Hyponatremia, present on admission -Continue IV fluid, and monitor BMP / D-dimer, elevated s/p Lovenox 80 mg twice a day CT angiogram to rule out PE.: No PE Change to Lovenox 40 mg sq qd /Anemia of CD Anemia work-up ordered / Lymphadenopathy syndrome CERVICAL AXILLARY Mediastinal and retroperitonael Lymphadenopathy r/o LymphomA -hiv test result positive consulted heme-onc - ordered CT abdomen/pelvis / DVT prophylaxis On heparin and GI prophylaxis /Discharge planning issues Patient maybe discharged after HIV test comes back and remains afebrile Lymphadenopathy work up as out patient 12/07 -HIV test positive, patient remained febrile with high temp. follow CT abdomen/pelvis, consult pulmonary 12/08 - s/p Flexible Bronch with Bronchial Washing. started on diflucan for possible veronica esophagitis based on bronch findings Brief history: 34-year-old -Bhut[place] male with no significant past medical history comes in for fever and chills since . Patient had vomited several times on . Patient has cough and has been taking mhte-xnb-xodasup medicines. Patient also having epigastric pain from coughing. 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 No diarrhea. No exposure to any coronavirus patients. Negative for COVID-19. Persistent fever, HIV test positive, ID following. Physical exam: General appearance: Alert in NAD Eyes: anicteric sclerae, moist conjunctivae; no lid-lag; PERRLA HENT: Atraumatic; oropharynx clear Lungs: bilateral rhonchi CV: RRR no murmur Abdomen: Soft, non-tender; no masses or hepatosplenomegaly Extremities: no edema, no cyanosis Skin: No rash. Psych: Appropriate affect, alert and oriented to person, place and time. Neuro: alert and oriented x 3. Moving all extermities Subjective Date of service: 12/09/19 Principal diagnosis: Right lower lobe pneumonia Interval history: Patient seen and examined. Medical records and medication list reviewed. No acute event overnight noted by the RN. Patient continues to spiking high fever. Discussed plan of care at bedside with patient. positive HIV test result s/p bronch today Objective - Constitutional Vitals: Vital Signs - 12hr 12/09/19 12/09/19 12/09/19 04:00 04:14 07:55 Temperature 99.4 F 100.6 F H Pulse Rate 120 H 105 H 114 H Respiratory 18 20 Rate Blood Pressure 109/57 100/60 O2 Sat by Pulse 100 93 Oximetry 12/09/19 12/09/19 12/09/19 08:06 12:52 12:56 Temperature 99.3 F Pulse Rate 118 H Respiratory 18 20 Rate Blood Pressure 98/51 O2 Sat by Pulse 90 96 Oximetry - Labs CBC & Chem 7: 12/05/19 04:09 12/07/19 11:00 Labs: Abnormal lab results 12/04/19 Range/Units 14:47 EBV Capsid Ag IgG Titer >750.00 H (<18.00) U/mL EBV Nuclear Ag IgG Indx 179.00 H (<18.00) U/mL
--- NOTE | 2019-12-09 13:26 | Consultation ---
History of Present Illness Consult date: 12/09/19 Requesting physician: DOROTHEA ROBERSON Reason for consult: abnormal CXR/CT, other History of present illness: 34 y/o male with HIV, admitted with fever, cough and dyspnea on exertion. Patient has been admitted for several days. Ruled out for COVID but not getting better. ID consulted and asked that pulmonary evaluate for bronch with washing. Saw consult this am and bronched patient this am thanks to JUSTINE. Remainder of the review is negative. Past History Past Medical History: HIV/AIDS Medications and Allergies Allergies Allergy/AdvReac Type Severity Reaction Status Date / Time No Known Allergies Allergy Verified 12/02/19 14:17 Home Medications Medication Instructions Recorded Confirmed Last Taken Type Cephalexin [Keflex] 500 mg PO BID #12 capsule 02/10/17 12/04/19 3 Days Ago Rx ~12/01/19 Ibuprofen [Motrin] 800 mg PO Q8HR PRN #30 tablet 02/10/17 12/04/19 3 Days Ago Rx ~12/01/19 Ibuprofen [Motrin 800 MG tab] 800 mg PO Q8HR PRN #20 tablet 02/09/18 12/04/19 3 Days Ago Rx ~12/01/19 Sulfamethoxazole/Trimethoprim 1 each PO BID 10 Days #20 tablet 02/09/18 12/04/19 3 Days Ago Rx [Bactrim DS TAB] ~12/01/19 Active Meds: Active Medications Acetaminophen (Tylenol) 650 mg PO Q4H PRN PRN Reason: Pain MILD(1-3)/Fever >100.5/LIU Last Admin: 12/08/19 21:17 Dose: 650 mg Documented by: Albuterol (Proventil) 2.5 mg IH Q4HRT PRN PRN Reason: Shortness Of Breath Benzonatate (Tessalon Perles) 100 mg PO Q8HR PRN PRN Reason: cough Last Admin: 12/03/19 23:00 Dose: 100 mg Documented by: Cyanocobalamin (Vitamin B-12) 1,000 mcg PO QDAY [facility] Last Admin: 12/08/19 11:28 Dose: 1,000 mcg Documented by: Enoxaparin Sodium (Enoxaparin) 40 mg SUB-Q QDAY@2200 [facility] Last Admin: 12/08/19 21:17 Dose: 40 mg Documented by: Famotidine (Pepcid) 20 mg PO BID [facility] Last Admin: 12/08/19 21:16 Dose: 20 mg Documented by: Hydromorphone HCl (Dilaudid) 0.5 mg IV Q3H PRN PRN Reason: Pain , Severe (7-10) Sodium Chloride (Nacl 0.9% 1000 Ml) 1,000 mls @ 75 mls/hr IV DIRECT CEFERINO Last Admin: 12/08/19 02:40 Dose: 75 mls/hr Documented by: Fluconazole (Diflucan/Ns 100 Mg/50 Ml) 100 mg in 50 mls @ 50 mls/hr IV Q24HR [facility]; Protocol Multivitamins/Minerals (Caltrate Plus) 1 each PO BID [facility] Last Admin: 12/08/19 21:16 Dose: 1 each Documented by: Ondansetron HCl (Zofran) 4 mg IV Q8H PRN PRN Reason: Nausea And Vomiting Oxycodone/Acetaminophen (Percocet 5/325) 1 tab PO Q6H PRN PRN Reason: Pain, Moderate (4-6) Pseudoephedrine/Acetam/Chlorphenir (Robitussin Ac) 10 ml PO Q6H PRN PRN Reason: Cough Last Admin: 12/07/19 17:41 Dose: 10 ml Documented by: Sodium Chloride (Sodium Chloride Flush Syringe 10 Ml) 10 ml IV BID [facility] Last Admin: 12/08/19 21:17 Dose: 10 ml Documented by: Sodium Chloride (Sodium Chloride Flush Syringe 10 Ml) 10 ml IV PRN PRN PRN Reason: LINE FLUSH Trimethoprim/Sulfamethoxazole (Bactrim Ds) 2 each PO Q8HR [facility] Last Admin: 12/09/19 06:27 Dose: 2 each Documented by: Review of Systems All systems: negative Physical Examination Vital signs: Vital Signs Pulse Pulse Ox 116 H 97 12/02/19 14:20 12/02/19 14:20 General appearance: no acute distress, alert Eyes: non-icteric ENT: other (thrush seen on bronchoscope) Neck: supple Effort: normal Ascultation: Bilateral: diminished breath sounds Percussion: Bilateral: not dull Cardiovascular: regular rate and rhythm Gastrointestinal: normoactive bowel sounds, soft Results - Laboratory Findings CBC and BMP: 12/05/19 04:09 12/07/19 11:00 PT/INR, D-dimer D-Dimer 4007.44 ng/mlDDU (0-234) H 12/03/19 00:19 Abnormal lab findings: Abnormal Labs 12/02/19 12/02/19 12/02/19 15:21 15:21 15:21 RBC Hgb 10.5 L Hct 32.2 L MCV 80 L MCH 26 L RDW 16.0 H Plt Count 122 L Seg Neuts % (Manual) Lymphocytes % (Manual) Monocytes % (Manual) 14.0 H Lymphocytes # (Manual) Monocytes # (Manual) 0.9 H D-Dimer 3284.41 H Sodium 126 L Chloride 93.3 L Carbon Dioxide 20 L Glucose 114 H Calcium 8.2 L Iron TIBC Ferritin AST Lactate Dehydrogenase C-Reactive Protein Total Protein 8.3 H Albumin 2.8 L EBV Capsid Ag IgG Titer EBV Nuclear Ag IgG Indx HIV-1 RNA PCR copies/ml HIV-1 RNA (PCR) log 12/02/19 12/02/19 12/03/19 15:21 15:21 00:19 RBC Hgb Hct MCV MCH RDW Plt Count Seg Neuts % (Manual) Lymphocytes % (Manual) Monocytes % (Manual) Lymphocytes # (Manual) Monocytes # (Manual) D-Dimer 4007.44 H Sodium Chloride Carbon Dioxide Glucose Calcium Iron TIBC Ferritin 1133.0 H AST Lactate Dehydrogenase 206 H C-Reactive Protein 14.60 H Total Protein Albumin EBV Capsid Ag IgG Titer EBV Nuclear Ag IgG Indx HIV-1 RNA PCR copies/ml HIV-1 RNA (PCR) log 12/03/19 12/03/19 12/04/19 00:19 05:54 14:47 RBC Hgb Hct MCV MCH RDW Plt Count Seg Neuts % (Manual) Lymphocytes % (Manual) Monocytes % (Manual) Lymphocytes # (Manual) Monocytes # (Manual) D-Dimer Sodium 130 L Chloride 97.4 L Carbon Dioxide Glucose 103 H Calcium 7.8 L Iron TIBC Ferritin 1100.0 H AST Lactate Dehydrogenase C-Reactive Protein Total Protein Albumin 2.7 L EBV Capsid Ag IgG Titer EBV Nuclear Ag IgG Indx HIV-1 RNA PCR copies/ml 482354 H HIV-1 RNA (PCR) log 5.57 H 12/04/19 12/05/19 12/05/19 14:47 04:09 04:09 RBC 3.63 L Hgb 9.3 L Hct 28.5 L MCV 79 L MCH 26 L RDW 16.3 H Plt Count 96 L Seg Neuts % (Manual) 86.0 H Lymphocytes % (Manual) 6.0 L Monocytes % (Manual) Lymphocytes # (Manual) 0.4 L Monocytes # (Manual) D-Dimer Sodium 126 L Chloride 94.6 L Carbon Dioxide Glucose Calcium 8.0 L Iron TIBC Ferritin AST 50 H Lactate Dehydrogenase C-Reactive Protein Total Protein Albumin 2.3 L EBV Capsid Ag IgG Titer >750.00 H EBV Nuclear Ag IgG Indx 179.00 H HIV-1 RNA PCR copies/ml HIV-1 RNA (PCR) log 12/07/19 12/07/19 11:00 11:00 RBC Hgb Hct MCV MCH RDW Plt Count Seg Neuts % (Manual) Lymphocytes % (Manual) Monocytes % (Manual) Lymphocytes # (Manual) Monocytes # (Manual) D-Dimer Sodium 126 L Chloride 95.3 L Carbon Dioxide 19 L Glucose 104 H Calcium 7.8 L Iron 14 L TIBC 192 L Ferritin AST Lactate Dehydrogenase C-Reactive Protein Total Protein Albumin EBV Capsid Ag IgG Titer EBV Nuclear Ag IgG Indx HIV-1 RNA PCR copies/ml HIV-1 RNA (PCR) log - Diagnostic Findings CT scan - chest: image reviewed (right midlung airspace disease) Assessment and Plan 34 y/o male with right midlung pneumonia and HIV. 1. Bronch today. Washing of right middle lobe done 2. Sent to cytology for PJP, CMV. Respiratory culture sent along with fungal and afb. 3. Was on room air prior to bronch, most likely can return to this. Will continue to follow along with you.
[2019-12-09] MEDS: FAMOTIDINE 20 MG TAB PO SCH ×2 (13:30→21:33)
[2019-12-09] MEDS: CYANOCOBALAMIN (VIT B-12) 1000 MCG TAB PO SCH (13:30)
[2019-12-09] MEDS: CALCIUM CARB/VIT D3/MINERALS 600 MG/800 UNITS TAB PO SCH ×2 (13:31→21:33)
--- NOTE | 2019-12-09 14:07 | Progress Note ---
Assessment and Plan Cultures: COVID test negative. Blood culture12/02/2019-. Assessment: 35 years old male without any medical history, admitted on 12/03/2019 due to a week history of dry cough associated with malaise, body aches, fever and chills: #Persistent high fever: Possibly due to acute HIV, ?PJP. His statement of not having sex for the past month, he is nearing the end of the time window for acute HIV though it is not impossible. #Right extensive pneumonia: Possibly bacterial given elevated procalcitonin, other possibility could be opportunistic PJP however noted typical picture on chest CT, less likely invasive fungal pneumonia. Chest x-ray showed patchy bilateral pneumonia mainly to the right. CTA showed extensive lymphadenopathies in bilateral axilla, neck, chest, mediastinum, fransisco, upper retroperitoneal, mild hepatosplenomegaly, extensive right perihilar and middle lobe infiltrates. #Generalized lymphadenopathies, associated with hepatosplenomegaly, weight loss and fever: Possibly due to acute HIV infection, mononucleosis or less likely malignancy. Patient is bisexual, last HIV test was done 3 years ago, negative. #Anemia/thrombocytopenia: unclear etiology ? HIV #Elevated d-dimer: CTA showed no PE Recommendations: Continue ceftriaxone 2 g IV once a day and azithromycin. Complete 5 days of therapy today. Add Bactrim DS 2 tabs every 8 hours to cover empirically for PJP pneumonia - continue Obtain HIV fourth-generation, HIV viral load and CD4 - positive VL. Pending CD4 count. Follow up Strep pneumoniae urine antigen and legionella antigen Follow up AFB blood culture, Aspergillus antigen and Cryptococcal antigen Pending Fungitell Follow up tests from bronchoscopy - appreciate pulm's help. Will start ART when Cryptococcal antigen returns. Unfortunately broad differential at this point makes discharge difficult. Moses Garcia MD [facility] ([facility] M: [phone] O: [phone] F: [phone] Subjective Date of service: 12/09/19 Principal diagnosis: Right lower lobe pneumonia Interval history: Recurrently febrile to 100.6. Now s/p bronchscopy by Dr. Ardon. EBV serologies indicating past infection. Objective - Exam Narrative Exam: General appearance: Alert in NAD Eyes: anicteric sclerae, moist conjunctivae HENT: Atraumatic; oropharynx clear Lungs: bilateral rhonchi CV: RRR no murmur Abdomen: Soft, non-tender; no masses or hepatosplenomegaly Extremities: no edema, no cyanosis Skin: No rash. Psych: Appropriate affect, alert and oriented to person, place and time. Neuro: alert and oriented x 3. Moving all extremities - Constitutional Vitals: Vital Signs Temp Pulse Resp BP Pulse Ox 99.3 F 118 H 20 98/51 96 12/09/19 12:52 12/09/19 12:52 12/09/19 12:52 12/09/19 12:52 12/09/19 12:56 Temperature -Last 24 Hours Temperature 99.3 F Temperature 100.3 F Temperature 98.6 F Temperature 98.6 F Temperature 100.6 F Temperature 99.4 F Temperature 98.9 F Temperature 100.2 F Temperature 100.1 F - Labs CBC & Chem 7: 12/05/19 04:09 12/07/19 11:00 Labs: Abnormal lab results 12/04/19 Range/Units 14:47 EBV Capsid Ag IgG Titer >750.00 H (<18.00) U/mL EBV Nuclear Ag IgG Indx 179.00 H (<18.00) U/mL
[2019-12-09] MEDS: FLUCONAZOLE/NS 100 MG/50 ML 100 MG/50 ML BAG IV SCH (15:58)
[2019-12-09] MEDS: ACETAMINOPHEN 325 MG TAB PO PRN ×2 (15:58→22:55)
[2019-12-09] MEDS: guaiFENesin/CODEINE 100-10MG ORAL LIQD 5 ML PO PRN ×2 (17:04→21:33)
[2019-12-09] MEDS: ENOXAPARIN 40 MG/0.4 ML INJ SUB-Q SCH (21:32)
[2019-12-10] MEDS: SULFAMETHOXAZOLE/TRIMETHOPRIM 800/160MG DS TAB PO SCH ×3 (06:13→21:37)
[2019-12-10] MEDS: CYANOCOBALAMIN (VIT B-12) 1000 MCG TAB PO SCH (09:25)
[2019-12-10] MEDS: FAMOTIDINE 20 MG TAB PO SCH ×2 (09:25→21:38)
[2019-12-10] MEDS: FLUCONAZOLE/NS 100 MG/50 ML 100 MG/50 ML BAG IV SCH (09:26)
[2019-12-10] MEDS: CALCIUM CARB/VIT D3/MINERALS 600 MG/800 UNITS TAB PO SCH ×2 (09:26→21:38)
--- NOTE | 2019-12-10 11:14 | Progress Note ---
Assessment and Plan /HIV, new diagnosis - ID following, - positive VL. Pending CD4 count. - plan to start ART when Cryptococcal antigen returns. /Persistent high fever: Likely due to pneumonia +/-generalized lymphadenopathy likely from HIV as test is positive heam onc consulted for possible lymphoma Follow up EBV panel and PCR, CMV serology, Strep pneumoniae urine antigen and legionella antigen Follow up AFB blood culture, Aspergillus antigen and Cryptococcal antigen, Pending Fungitell Consulted pulm -s/p Flexible Bronch with Bronchial Washing yesterday - will follow result / Right lower lobe pneumonia completed 5 days of ceftriaxone 2 g IV once a day and azithromycin Added Bactrim DS 2 tabs every 8 hours to cover empirically for PJP pneumonia - per ID negative Coronavirus HIV +, continue to spike high fever, ID following /Veronica esophagitis, start on diflucan /Hyponatremia, present on admission -Continue IV fluid, and monitor BMP / D-dimer, elevated s/p Lovenox 80 mg twice a day CT angiogram to rule out PE.: No PE Change to Lovenox 40 mg sq qd /Anemia of CD Anemia work-up ordered / Lymphadenopathy syndrome CERVICAL AXILLARY Mediastinal, intraabdominal and retroperitonael Lymphadenopathy r/o LymphomA -hiv test result positive consulted heme-onc - ordered CT abdomen/pelvis showed b/l intraabdominal lymphadenopathy / DVT prophylaxis On heparin and GI prophylaxis /Discharge planning issues Patient maybe discharged when remains afebrile, Further Lymphadenopathy work up as out patient 12/07 -HIV test positive, patient remained febrile with high temp. follow CT abdomen/pelvis, consult pulmonary 12/08 - s/p Flexible Bronch with Bronchial Washing. started on diflucan for possible veronica esophagitis based on bronch findings 12/09 -follow-up bronchial washing study, follow-up cryptococcal antigen result. Brief history: 34-year-old -[place] male with no significant past medical history comes in for fever and chills since . Patient had vomited several times on . Patient has cough and has been taking wqeo-mdi-cbrzeta medicines. Patient also having epigastric pain from coughing. 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 No diarrhea. No exposure to any coronavirus patients. Negative for COVID-19. Persistent fever, HIV test positive, ID following. Physical exam: General appearance: Alert in NAD Eyes: anicteric sclerae, moist conjunctivae; no lid-lag; PERRLA HENT: Atraumatic; oropharynx clear Lungs: bilateral rhonchi CV: RRR no murmur Abdomen: Soft, non-tender; no masses or hepatosplenomegaly Extremities: no edema, no cyanosis Skin: No rash. Psych: Appropriate affect, alert and oriented to person, place and time. Neuro: alert and oriented x 3. Moving all extermities Subjective Date of service: 12/10/19 Principal diagnosis: Right lower lobe pneumonia Interval history: Patient seen and examined. Medical records and medication list reviewed. No acute event overnight noted by the RN. Patient continues to spiking high fever. Discussed plan of care at bedside with patient. positive HIV test result , pending bronchial wash study Objective - Constitutional Vitals: Vital Signs - 12hr 12/10/19 12/10/19 12/10/19 03:58 07:31 08:00 Temperature 98.2 F 97.7 F Pulse Rate 92 H 98 H Pulse Rate [ 101 H From Monitor] Respiratory 20 18 17 Rate Blood Pressure 87/54 93/56 O2 Sat by Pulse 97 98 99 Oximetry - Labs CBC & Chem 7: 12/05/19 04:09 12/11/19 08:07
--- NOTE | 2019-12-10 12:55 | Progress Note ---
Assessment and Plan Impression: Right sided pneumonia r/o PJP Acute HIV Recommend: Await bronch results Cont w/ IV Bactrim per ID Subjective Date of service: 12/10/19 Principal diagnosis: Right lower lobe pneumonia Interval history: With fever off and on. Comfortable on RA. Dry cough. Objective Vital Signs - 12hr 12/10/19 12/10/19 12/10/19 03:58 07:31 08:00 Temperature 98.2 F 97.7 F Pulse Rate 92 H 98 H Pulse Rate [ 101 H From Monitor] Respiratory 20 18 17 Rate Blood Pressure 87/54 93/56 O2 Sat by Pulse 97 98 99 Oximetry Constitutional: no acute distress, alert Eyes: non-icteric ENT: other (thrush seen on bronchoscope) Neck: supple Effort: normal Ascultation: Bilateral: diminished breath sounds Percussion: Bilateral: not dull Cardiovascular: regular rate and rhythm Gastrointestinal: normoactive bowel sounds, soft CBC and BMP: 12/05/19 04:09 12/07/19 11:00 ABG, PT/INR, D-dimer: PT/INR, D-dimer D-Dimer 4007.44 ng/mlDDU (0-234) H 12/03/19 00:19 Abnormal lab findings: Abnormal Labs 12/02/19 12/02/19 12/02/19 15:21 15:21 15:21 RBC Hgb 10.5 L Hct 32.2 L MCV 80 L MCH 26 L RDW 16.0 H Plt Count 122 L Seg Neuts % (Manual) Lymphocytes % (Manual) Monocytes % (Manual) 14.0 H Lymphocytes # (Manual) Monocytes # (Manual) 0.9 H D-Dimer 3284.41 H Sodium 126 L Chloride 93.3 L Carbon Dioxide 20 L Glucose 114 H Calcium 8.2 L Iron TIBC Ferritin AST Lactate Dehydrogenase C-Reactive Protein Total Protein 8.3 H Albumin 2.8 L EBV Capsid Ag IgG Titer EBV Nuclear Ag IgG Indx HIV-1 RNA PCR copies/ml HIV-1 RNA (PCR) log 12/02/19 12/02/19 12/03/19 15:21 15:21 00:19 RBC Hgb Hct MCV MCH RDW Plt Count Seg Neuts % (Manual) Lymphocytes % (Manual) Monocytes % (Manual) Lymphocytes # (Manual) Monocytes # (Manual) D-Dimer 4007.44 H Sodium Chloride Carbon Dioxide Glucose Calcium Iron TIBC Ferritin 1133.0 H AST Lactate Dehydrogenase 206 H C-Reactive Protein 14.60 H Total Protein Albumin EBV Capsid Ag IgG Titer EBV Nuclear Ag IgG Indx HIV-1 RNA PCR copies/ml HIV-1 RNA (PCR) log 12/03/19 12/03/19 12/04/19 00:19 05:54 14:47 RBC Hgb Hct MCV MCH RDW Plt Count Seg Neuts % (Manual) Lymphocytes % (Manual) Monocytes % (Manual) Lymphocytes # (Manual) Monocytes # (Manual) D-Dimer Sodium 130 L Chloride 97.4 L Carbon Dioxide Glucose 103 H Calcium 7.8 L Iron TIBC Ferritin 1100.0 H AST Lactate Dehydrogenase C-Reactive Protein Total Protein Albumin 2.7 L EBV Capsid Ag IgG Titer EBV Nuclear Ag IgG Indx HIV-1 RNA PCR copies/ml 065538 H HIV-1 RNA (PCR) log 5.57 H 12/04/19 12/05/19 12/05/19 14:47 04:09 04:09 RBC 3.63 L Hgb 9.3 L Hct 28.5 L MCV 79 L MCH 26 L RDW 16.3 H Plt Count 96 L Seg Neuts % (Manual) 86.0 H Lymphocytes % (Manual) 6.0 L Monocytes % (Manual) Lymphocytes # (Manual) 0.4 L Monocytes # (Manual) D-Dimer Sodium 126 L Chloride 94.6 L Carbon Dioxide Glucose Calcium 8.0 L Iron TIBC Ferritin AST 50 H Lactate Dehydrogenase C-Reactive Protein Total Protein Albumin 2.3 L EBV Capsid Ag IgG Titer >750.00 H EBV Nuclear Ag IgG Indx 179.00 H HIV-1 RNA PCR copies/ml HIV-1 RNA (PCR) log 12/07/19 12/07/19 11:00 11:00 RBC Hgb Hct MCV MCH RDW Plt Count Seg Neuts % (Manual) Lymphocytes % (Manual) Monocytes % (Manual) Lymphocytes # (Manual) Monocytes # (Manual) D-Dimer Sodium 126 L Chloride 95.3 L Carbon Dioxide 19 L Glucose 104 H Calcium 7.8 L Iron 14 L TIBC 192 L Ferritin AST Lactate Dehydrogenase C-Reactive Protein Total Protein Albumin EBV Capsid Ag IgG Titer EBV Nuclear Ag IgG Indx HIV-1 RNA PCR copies/ml HIV-1 RNA (PCR) log
[2019-12-10] MEDS: guaiFENesin/CODEINE 100-10MG ORAL LIQD 5 ML PO PRN (13:33)
[2019-12-10] MEDS: ACETAMINOPHEN 325 MG TAB PO PRN (15:13)
[2019-12-10] MEDS: ENOXAPARIN 40 MG/0.4 ML INJ SUB-Q SCH (21:38)
[2019-12-11] MEDS: SULFAMETHOXAZOLE/TRIMETHOPRIM 800/160MG DS TAB PO SCH ×3 (05:55→21:41)
[2019-12-11 08:40] LABS: BUN/Creatinine Ratio 16; Blood Urea Nitrogen 18 mg/dL (9-20); Calcium 8.3 mg/dL (8.4-10.2); Hemolysis Index 3
[2019-12-11] MEDS: FAMOTIDINE 20 MG TAB PO SCH ×2 (09:05→21:41)
[2019-12-11] MEDS: FLUCONAZOLE/NS 100 MG/50 ML 100 MG/50 ML BAG IV SCH (09:05)
[2019-12-11] MEDS: CYANOCOBALAMIN (VIT B-12) 1000 MCG TAB PO SCH (09:05)
[2019-12-11] MEDS: CALCIUM CARB/VIT D3/MINERALS 600 MG/800 UNITS TAB PO SCH ×2 (09:05→21:35)
--- NOTE | 2019-12-11 11:34 | Progress Note ---
Assessment and Plan Impression: Right sided pneumonia r/o PJP Acute HIV Recommend: Await bronch results Cont w/ IV Bactrim per ID Subjective Date of service: 12/11/19 Principal diagnosis: Right lower lobe pneumonia Interval history: Overall better cough is improved. Afebrile Objective Vital Signs - 12hr 12/10/19 12/11/19 12/11/19 23:57 05:27 07:38 Temperature 97.8 F 98.9 F 97.9 F Pulse Rate 104 H 100 H 104 H Pulse Rate [ From Monitor] Respiratory 20 20 18 Rate Blood Pressure 94/57 92/45 87/48 O2 Sat by Pulse 96 96 96 Oximetry 12/11/19 08:00 Temperature Pulse Rate Pulse Rate [ 105 H From Monitor] Respiratory 16 Rate Blood Pressure O2 Sat by Pulse 99 Oximetry Constitutional: no acute distress, alert Eyes: non-icteric ENT: other (thrush seen on bronchoscope) Neck: supple Effort: normal Ascultation: Bilateral: diminished breath sounds Percussion: Bilateral: not dull Cardiovascular: regular rate and rhythm Gastrointestinal: normoactive bowel sounds, soft CBC and BMP: 12/05/19 04:09 12/11/19 08:07 ABG, PT/INR, D-dimer: PT/INR, D-dimer D-Dimer 4007.44 ng/mlDDU (0-234) H 12/03/19 00:19 Abnormal lab findings: Abnormal Labs 12/02/19 12/02/19 12/02/19 15:21 15:21 15:21 RBC Hgb 10.5 L Hct 32.2 L MCV 80 L MCH 26 L RDW 16.0 H Plt Count 122 L Seg Neuts % (Manual) Lymphocytes % (Manual) Monocytes % (Manual) 14.0 H Lymphocytes # (Manual) Monocytes # (Manual) 0.9 H D-Dimer 3284.41 H Sodium 126 L Potassium Chloride 93.3 L Carbon Dioxide 20 L Glucose 114 H Calcium 8.2 L Iron TIBC Ferritin AST Lactate Dehydrogenase C-Reactive Protein Total Protein 8.3 H Albumin 2.8 L EBV Capsid Ag IgG Titer EBV Nuclear Ag IgG Indx HIV-1 RNA PCR copies/ml HIV-1 RNA (PCR) log 12/02/19 12/02/19 12/03/19 15:21 15:21 00:19 RBC Hgb Hct MCV MCH RDW Plt Count Seg Neuts % (Manual) Lymphocytes % (Manual) Monocytes % (Manual) Lymphocytes # (Manual) Monocytes # (Manual) D-Dimer 4007.44 H Sodium Potassium Chloride Carbon Dioxide Glucose Calcium Iron TIBC Ferritin 1133.0 H AST Lactate Dehydrogenase 206 H C-Reactive Protein 14.60 H Total Protein Albumin EBV Capsid Ag IgG Titer EBV Nuclear Ag IgG Indx HIV-1 RNA PCR copies/ml HIV-1 RNA (PCR) log 12/03/19 12/03/19 12/04/19 00:19 05:54 14:47 RBC Hgb Hct MCV MCH RDW Plt Count Seg Neuts % (Manual) Lymphocytes % (Manual) Monocytes % (Manual) Lymphocytes # (Manual) Monocytes # (Manual) D-Dimer Sodium 130 L Potassium Chloride 97.4 L Carbon Dioxide Glucose 103 H Calcium 7.8 L Iron TIBC Ferritin 1100.0 H AST Lactate Dehydrogenase C-Reactive Protein Total Protein Albumin 2.7 L EBV Capsid Ag IgG Titer EBV Nuclear Ag IgG Indx HIV-1 RNA PCR copies/ml 631336 H HIV-1 RNA (PCR) log 5.57 H 12/04/19 12/05/19 12/05/19 14:47 04:09 04:09 RBC 3.63 L Hgb 9.3 L Hct 28.5 L MCV 79 L MCH 26 L RDW 16.3 H Plt Count 96 L Seg Neuts % (Manual) 86.0 H Lymphocytes % (Manual) 6.0 L Monocytes % (Manual) Lymphocytes # (Manual) 0.4 L Monocytes # (Manual) D-Dimer Sodium 126 L Potassium Chloride 94.6 L Carbon Dioxide Glucose Calcium 8.0 L Iron TIBC Ferritin AST 50 H Lactate Dehydrogenase C-Reactive Protein Total Protein Albumin 2.3 L EBV Capsid Ag IgG Titer >750.00 H EBV Nuclear Ag IgG Indx 179.00 H HIV-1 RNA PCR copies/ml HIV-1 RNA (PCR) log 12/07/19 12/07/19 12/11/19 11:00 11:00 08:07 RBC Hgb Hct MCV MCH RDW Plt Count Seg Neuts % (Manual) Lymphocytes % (Manual) Monocytes % (Manual) Lymphocytes # (Manual) Monocytes # (Manual) D-Dimer Sodium 126 L 125 L Potassium 5.3 H Chloride 95.3 L 96.3 L Carbon Dioxide 19 L 19 L Glucose 104 H Calcium 7.8 L 8.3 L Iron 14 L TIBC 192 L Ferritin AST Lactate Dehydrogenase C-Reactive Protein Total Protein Albumin EBV Capsid Ag IgG Titer EBV Nuclear Ag IgG Indx HIV-1 RNA PCR copies/ml HIV-1 RNA (PCR) log
--- NOTE | 2019-12-11 11:51 | Progress Note ---
Assessment and Plan /HIV, new diagnosis - ID following, - positive VL. Pending CD4 count. - plan to start ART when Cryptococcal antigen returns. /Persistent high fever: Likely due to pneumonia +/-generalized lymphadenopathy likely from HIV as test is positive heam onc consulted for possible lymphoma negative EBV panel and PCR and negative legionella antigen Follow up AFB blood culture, CMV serology, Aspergillus antigen, Strep pneumoniae urine antigen and Cryptococcal antigen, Pending Fungitell Consulted pulm -s/p Flexible Bronch with Bronchial Washing yesterday - will follow result / Right lower lobe pneumonia completed 5 days of ceftriaxone 2 g IV once a day and azithromycin Added Bactrim DS 2 tabs every 8 hours to cover empirically for PJP pneumonia - per ID negative Coronavirus HIV +, continue to spike high fever, ID following /Veronica esophagitis, start on diflucan /Hyponatremia, present on admission -Continue IV fluid, and monitor BMP / D-dimer, elevated s/p Lovenox 80 mg twice a day CT angiogram to rule out PE.: No PE Change to Lovenox 40 mg sq qd /Anemia of CD Anemia work-up ordered / Lymphadenopathy syndrome CERVICAL AXILLARY Mediastinal, intraabdominal and retroperitonael Lymphadenopathy r/o LymphomA -hiv test result positive consulted heme-onc - ordered CT abdomen/pelvis showed b/l intraabdominal lymphadenopathy / DVT prophylaxis On heparin and GI prophylaxis /Discharge planning issues Patient maybe discharged when remains afebrile, Further Lymphadenopathy work up as out patient 12/07 -HIV test positive, patient remained febrile with high temp. follow CT abdomen/pelvis, consult pulmonary 12/08 - s/p Flexible Bronch with Bronchial Washing. started on diflucan for possible veronica esophagitis based on bronch findings 12/09 -follow-up bronchial washing study, follow-up cryptococcal antigen result. 12/10 - pending bronchial washing and cryptococcal antigen study. d/c when clears by ID Brief history: 34-year-old -[place]ian male with no significant past medical history comes in for fever and chills since . Patient had vomited several times on . Patient has cough and has been taking [id number] medicines. Patient also having epigastric pain from coughing. 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 No diarrhea. No exposure to any coronavirus patients. Negative for COVID-19. Persistent fever, HIV test positive, ID following. Physical exam: General appearance: Alert in NAD Eyes: anicteric sclerae, moist conjunctivae; no lid-lag; PERRLA HENT: Atraumatic; oropharynx clear Lungs: bilateral rhonchi CV: RRR no murmur Abdomen: Soft, non-tender; no masses or hepatosplenomegaly Extremities: no edema, no cyanosis Skin: No rash. Psych: Appropriate affect, alert and oriented to person, place and time. Neuro: alert and oriented x 3. Moving all extermities Subjective Date of service: 12/11/19 Principal diagnosis: Right lower lobe pneumonia Interval history: Patient seen and examined. Medical records and medication list reviewed. No acute event overnight noted by the RN. Patient continues to spiking high fever. Discussed plan of care at bedside with patient. positive HIV test result , pending bronchial wash study and cryptococcal antigen Objective - Constitutional Vitals: Vital Signs - 12hr 12/10/19 12/11/19 12/11/19 23:57 05:27 07:38 Temperature 97.8 F 98.9 F 97.9 F Pulse Rate 104 H 100 H 104 H Pulse Rate [ From Monitor] Respiratory 20 20 18 Rate Blood Pressure 94/57 92/45 87/48 O2 Sat by Pulse 96 96 96 Oximetry 12/11/19 08:00 Temperature Pulse Rate Pulse Rate [ 105 H From Monitor] Respiratory 16 Rate Blood Pressure O2 Sat by Pulse 99 Oximetry - Labs CBC & Chem 7: 12/05/19 04:09 12/11/19 08:07 Labs: Abnormal lab results 12/11/19 Range/Units 08:07 Sodium 125 L (137-145) mmol/L Potassium 5.3 H (3.6-5.0) mmol/L Chloride 96.3 L (98-107) mmol/L Carbon Dioxide 19 L (22-30) mmol/L Calcium 8.3 L (8.4-10.2) mg/dL
[2019-12-11] MEDS: ENOXAPARIN 40 MG/0.4 ML INJ SUB-Q SCH (21:41)
[2019-12-11] MEDS: SODIUM CHLORIDE 0.9% 1000 ML 1,000 ML IV SCH (21:42)
[2019-12-11] MEDS: guaiFENesin/CODEINE 100-10MG ORAL LIQD 5 ML PO PRN (21:42)
[2019-12-11] MEDS: ACETAMINOPHEN 325 MG TAB PO PRN (21:42)
[2019-12-12] MEDS: FAMOTIDINE 20 MG TAB PO SCH (09:43)
[2019-12-12] MEDS: FLUCONAZOLE/NS 100 MG/50 ML 100 MG/50 ML BAG IV SCH (09:43)
[2019-12-12] MEDS: CYANOCOBALAMIN (VIT B-12) 1000 MCG TAB PO SCH (09:43)
[2019-12-12] MEDS: CALCIUM CARB/VIT D3/MINERALS 600 MG/800 UNITS TAB PO SCH (09:43)
--- NOTE | 2019-12-12 10:01 | Progress Note ---
Assessment and Plan 34 y/o male with right midlung pneumonia and HIV. 1. Per Micro, pathology took majority of the sample so they could not do Resp Culture, Fungal and AFB. They are going to speak with Path about doing fungal smear and they will run cultures off what they have left. 2. Will discuss with micro and path for future plans as too how much sample is needed. Subjective Date of service: 12/12/19 Principal diagnosis: Right lower lobe pneumonia Interval history: No acute events. Called lab this am about cancelled orders and this has been remedied. Objective Vital Signs - 12hr 12/11/19 12/11/19 12/12/19 23:25 23:26 00:00 Temperature 98.0 F Pulse Rate 100 H 97 H Respiratory 16 Rate Blood Pressure 90/56 O2 Sat by Pulse 94 Oximetry 12/12/19 12/12/19 12/12/19 04:06 04:13 07:50 Temperature 98.5 F 97.0 F L Pulse Rate 94 H 104 H Respiratory 16 16 Rate Blood Pressure 100/65 93/53 O2 Sat by Pulse 95 99 Oximetry 12/12/19 08:00 Temperature Pulse Rate Respiratory 18 Rate Blood Pressure O2 Sat by Pulse Oximetry Constitutional: no acute distress, alert Eyes: non-icteric ENT: other (thrush seen on bronchoscope) Neck: supple Effort: normal Ascultation: Bilateral: diminished breath sounds Percussion: Bilateral: not dull Cardiovascular: regular rate and rhythm Gastrointestinal: normoactive bowel sounds, soft CBC and BMP: 12/05/19 04:09 12/11/19 08:07 ABG, PT/INR, D-dimer: PT/INR, D-dimer D-Dimer 4007.44 ng/mlDDU (0-234) H 12/03/19 00:19 Abnormal lab findings: Abnormal Labs 12/02/19 12/02/19 12/02/19 15:21 15:21 15:21 RBC Hgb 10.5 L Hct 32.2 L MCV 80 L MCH 26 L RDW 16.0 H Plt Count 122 L Seg Neuts % (Manual) Lymphocytes % (Manual) Monocytes % (Manual) 14.0 H Lymphocytes # (Manual) Monocytes # (Manual) 0.9 H D-Dimer 3284.41 H Sodium 126 L Potassium Chloride 93.3 L Carbon Dioxide 20 L Glucose 114 H Calcium 8.2 L Iron TIBC Ferritin AST Lactate Dehydrogenase C-Reactive Protein Total Protein 8.3 H Albumin 2.8 L EBV Capsid Ag IgG Titer EBV Nuclear Ag IgG Indx HIV-1 RNA PCR copies/ml HIV-1 RNA (PCR) log 12/02/19 12/02/19 12/03/19 15:21 15:21 00:19 RBC Hgb Hct MCV MCH RDW Plt Count Seg Neuts % (Manual) Lymphocytes % (Manual) Monocytes % (Manual) Lymphocytes # (Manual) Monocytes # (Manual) D-Dimer 4007.44 H Sodium Potassium Chloride Carbon Dioxide Glucose Calcium Iron TIBC Ferritin 1133.0 H AST Lactate Dehydrogenase 206 H C-Reactive Protein 14.60 H Total Protein Albumin EBV Capsid Ag IgG Titer EBV Nuclear Ag IgG Indx HIV-1 RNA PCR copies/ml HIV-1 RNA (PCR) log 12/03/19 12/03/19 12/04/19 00:19 05:54 14:47 RBC Hgb Hct MCV MCH RDW Plt Count Seg Neuts % (Manual) Lymphocytes % (Manual) Monocytes % (Manual) Lymphocytes # (Manual) Monocytes # (Manual) D-Dimer Sodium 130 L Potassium Chloride 97.4 L Carbon Dioxide Glucose 103 H Calcium 7.8 L Iron TIBC Ferritin 1100.0 H AST Lactate Dehydrogenase C-Reactive Protein Total Protein Albumin 2.7 L EBV Capsid Ag IgG Titer EBV Nuclear Ag IgG Indx HIV-1 RNA PCR copies/ml 270110 H HIV-1 RNA (PCR) log 5.57 H 12/04/19 12/05/19 12/05/19 14:47 04:09 04:09 RBC 3.63 L Hgb 9.3 L Hct 28.5 L MCV 79 L MCH 26 L RDW 16.3 H Plt Count 96 L Seg Neuts % (Manual) 86.0 H Lymphocytes % (Manual) 6.0 L Monocytes % (Manual) Lymphocytes # (Manual) 0.4 L Monocytes # (Manual) D-Dimer Sodium 126 L Potassium Chloride 94.6 L Carbon Dioxide Glucose Calcium 8.0 L Iron TIBC Ferritin AST 50 H Lactate Dehydrogenase C-Reactive Protein Total Protein Albumin 2.3 L EBV Capsid Ag IgG Titer >750.00 H EBV Nuclear Ag IgG Indx 179.00 H HIV-1 RNA PCR copies/ml HIV-1 RNA (PCR) log 12/07/19 12/07/1920 11:00 11:00 08:07 RBC Hgb Hct MCV MCH RDW Plt Count Seg Neuts % (Manual) Lymphocytes % (Manual) Monocytes % (Manual) Lymphocytes # (Manual) Monocytes # (Manual) D-Dimer Sodium 126 L 125 L Potassium 5.3 H Chloride 95.3 L 96.3 L Carbon Dioxide 19 L 19 L Glucose 104 H Calcium 7.8 L 8.3 L Iron 14 L TIBC 192 L Ferritin AST Lactate Dehydrogenase C-Reactive Protein Total Protein Albumin EBV Capsid Ag IgG Titer EBV Nuclear Ag IgG Indx HIV-1 RNA PCR copies/ml HIV-1 RNA (PCR) log
--- NOTE | 2019-12-12 13:33 | Progress Note ---
Assessment and Plan Cultures: COVID test negative. Blood culture12/02/2019-. Assessment: 35 years old male without any medical history, admitted on 12/03/2019 due to a week history of dry cough associated with malaise, body aches, fever and chills: #Persistent high fever: Possibly due to acute HIV, ?PJP. His statement of not having sex for the past month, he is nearing the end of the time window for acute HIV though it is not impossible. #Right extensive pneumonia: Possibly bacterial given elevated procalcitonin, other possibility could be opportunistic PJP however noted typical picture on chest CT, less likely invasive fungal pneumonia. Chest x-ray showed patchy bilateral pneumonia mainly to the right. CTA showed extensive lymphadenopathies in bilateral axilla, neck, chest, mediastinum, [place], upper retroperitoneal, mild hepatosplenomegaly, extensive right perihilar and middle lobe infiltrates. #Generalized lymphadenopathies, associated with hepatosplenomegaly, weight loss and fever: Possibly due to acute HIV infection, mononucleosis or less likely malignancy. Patient is bisexual, last HIV test was done 3 years ago, negative. #Anemia/thrombocytopenia: unclear etiology ? HIV #Elevated d-dimer: CTA showed no PE Recommendations: Continue ceftriaxone 2 g IV once a day and azithromycin. Complete 5 days of therapy today. Add Bactrim DS 2 tabs every 8 hours to cover empirically for PJP pneumonia - continue Obtain HIV fourth-generation, HIV viral load and CD4 - positive VL. Pending CD4 count. Follow up Strep pneumoniae urine antigen and legionella antigen Follow up AFB blood culture, Aspergillus antigen and Cryptococcal antigen Pending Fungitell Follow up tests from bronchoscopy - appreciate pulm's help. Okay for DC from ID perspective. Would send home with Bactrim 2 DS every 8 hours to complete 21 total days of therapy from inpatient start. Patient needs follow-up in my clinic within 2 weeks to review bronchoscopy results, and start ART at that time. Moses Garcia MD [facility] ([facility] M: [phone] O: [phone] F: [phone] Subjective Date of service: 12/12/19 Principal diagnosis: Right lower lobe pneumonia Interval history: Patient now afebrile, with a normal white count. Bronchoscopy lab tests were initially canceled by lab, however that has been rectified by Dr. Ardon. Objective - Exam Narrative Exam: General appearance: Alert in NAD HENT: Atraumatic; oropharynx clear Lungs: bilateral rhonchi CV: RRR no murmur Abdomen: Soft, non-tender; no masses or hepatosplenomegaly Extremities: no edema, no cyanosis Skin: No rash. Psych: Appropriate affect, alert and oriented to person, place and time. Neuro: alert and oriented x 3. Moving all extremities - Constitutional Vitals: Vital Signs Temp Pulse Resp BP Pulse Ox 97 F L 45 L 18 117/53 98 12/12/19 11:49 12/12/19 11:49 12/12/19 11:49 12/12/19 11:49 12/12/19 11:49 Temperature -Last 24 Hours Temperature 97 F Temperature 97.1 F Temperature 97.0 F Temperature 98.5 F Temperature 98.0 F Temperature 99.4 F Temperature 99.6 F - Labs CBC & Chem 7: 12/05/19 04:09 12/11/19 08:07
[2019-12-12 14:13] LABS: Bilirubin,Urine NEG (Negative); Blood,Urine NEG (Negative); Color,Urine Yellow (Yellow); Mucus,Urine FEW /HPF; Protein,Urine <15 mg/dL mg/dL (Negative); Urobilinogen,Urine < 2.0 mg/dL (<2.0)
--- NOTE | 2019-12-12 14:21 | Discharge Summary ---
Providers - Providers Date of Admission: 12/02/19 18:37 Date of discharge: 12/12/19 Attending physician: DOROTHEA ROBERSON 12/02/19 17:36 Consult to Physician [CONS] Urgent Comment: Consulting Provider: ROSALBA SANCHEZ Physician Instructions: Reason For Exam: Suspected COVID 12/02/19 23:50 Consult to Dietitian/Nutrition [CONS] Routine Physician Instructions: Reason For Exam: Reason for Consult: Poor oral intake 12/04/19 18:26 Consult to Physician [CONS] Routine Comment: Consulting Provider: YULIANA WILKINSON Physician Instructions: Reason For Exam: Lymphadenopathy 12/08/19 15:30 Consult to Physician [CONS] Routine Comment: Consulting Provider: BORIS MONTIEL Physician Instructions: Reason For Exam: HIV+, possible PJP 12/09/19 08:22 Consult to Physician [CONS] Routine Comment: Consulting Provider: MEAGAN YOUNG Physician Instructions: Reason For Exam: PNA with fever may need bronch Primary care physician: [employer] Hospitalization Condition: Stable Pertinent studies: Chest x-ray, abdomen pelvis CT, CTA chest Procedures: Bronchoscopy with bronchial wash Hospital course: 34-year-old -Prydeinig male with no significant past medical history comes in for fever and chills since . Patient had vomited several times on . Patient has cough and has been taking [id number] medicines. Patient was also having epigastric pain from coughing. 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 Work-up in the hospital suggested right lower lobe pneumonia. Patient was tested negative for COVID-19. He was continued on empiric antibiotic 5 days with Rocephin and Zithromax. Had high suspicion for HIV because of persistent fever and generalized lymphadenopathy. He is HIV test was positive, ID following. Due to persistent fever pulmonary was consulted, status post bron with bronchial wash. His fever curve trended down, placed on empiric treatment for possible PJP pneumonia. Patient was monitored for hyperkalemia and hyponatremia. Hyperkalemia likely developed due to Bactrim which was discontinued on discharge. Hyponatremia was managed with IV fluid but could be due to underlying HIV. ID recommended outpatient follow- up for pending lab studies and to start on anti-HIV medications as an outpatient. Patient verbalized understanding and was discharged home in stable condition with outpatient follow-up. 12/07 -HIV test positive, patient remained febrile with high temp. follow CT abdomen/pelvis, consult pulmonary 12/08 - s/p Flexible Bronch with Bronchial Washing. started on diflucan for possible jamil esophagitis based on bronch findings 12/09 -follow-up bronchial washing study, follow-up cryptococcal antigen result. 12/10 - pending bronchial washing and cryptococcal antigen study. d/c when clears by ID 12/11: Patient remains afebrile for last 24 hours, ID cleared for discharge with outpatient follow-up. Discharge diagnosis: /HIV, new diagnosis - ID following, - positive VL. Pending CD4 count. - plan to start ART in 2 weeks as outpatient /Persistent high fever: Likely due to pneumonia +/-generalized lymphadenopathy likely from HIV as test is positive heam onc consulted for possible lymphoma negative EBV panel and PCR and negative legionella antigen Follow up AFB blood culture, CMV serology, Aspergillus antigen, Strep pneumoniae urine antigen and Cryptococcal antigen, Pending Fungitell Consulted pulm -s/p Flexible Bronch with Bronchial Washing yesterday - will follow result outpatient at ID clinic / Right lower lobe pneumonia completed 5 days of ceftriaxone 2 g IV once a day and azithromycin Added Bactrim DS 2 tabs every 8 hours to cover empirically for PJP pneumonia - per ID negative Coronavirus HIV +, ID recommended to treat for PGP pneumonia for total 3 weeks Bactrim was discontinued for hyperkalemia and patient was discharged with atovaquone 750 twice daily till December 23 /Jamil esophagitis, started on diflucan for total 7 days /Hyponatremia, present on admission -Continue IV fluid, and monitor BMP /Hyperkalemia likely from Bactrim / D-dimer, elevated s/p Lovenox 80 mg twice a day CT angiogram to rule out PE.: No PE Change to Lovenox 40 mg sq qd /Anemia of CD Anemia work-up ordered / Lymphadenopathy syndrome -likely from HIV versus possible lymphoma CTA chest and CT abdomen pelvis showed b/l intraabdominal lymphadenopathy, CERVICAL AXILLARY Mediastinal, intraabdominal and retroperitonael Lymphadenopathy. consulted heme-onc -recommended to r/o LymphomA with further work-up as outpatient / DVT prophylaxis On heparin and GI prophylaxis /Discharge planning issues Patient will discharge home with outpatient follow-up with ID, he will follow-up is pending work-up at ID clinic. Physical exam: General appearance: Alert in NAD Eyes: anicteric sclerae, moist conjunctivae; no lid-lag; PERRLA HENT: Atraumatic; oropharynx clear Lungs: bilateral rhonchi CV: RRR no murmur Abdomen: Soft, non-tender; no masses or hepatosplenomegaly Extremities: no edema, no cyanosis Skin: No rash. Psych: Appropriate affect, alert and oriented to person, place and time. Neuro: alert and oriented x 3. Moving all extermities Disposition: DC-01 TO HOME OR SELFCARE Time spent for discharge: 34 minutes Core Measure Documentation - Palliative Care Palliative Care/ Comfort Measures: Not Applicable - Core Measures Any of the following diagnoses?: none Exam - Constitutional Vitals: Temp Pulse Resp BP Pulse Ox 97 F L 45 L 18 117/53 98 12/12/19 11:49 12/12/19 11:49 12/12/19 11:49 12/12/19 11:49 12/12/19 11:49 Plan Activity: advance as tolerated Weight Bearing Status: Weight Bear as Tolerated Diet: regular Follow up with: PRIMARY CAREMD [Primary Care Provider] - 3-5 Days ESTHELA LAGOS MD [Staff Physician] - 7 Days Prescriptions: Fluconazole [Diflucan TAB] 100 mg PO QDAY #7 tablet Atovaquone [Mepron] 750 mg PO BID #25 oralsyr Ibuprofen [Motrin 800 MG tab] 800 mg PO Q8HR PRN #14 tablet PRN Reason: Pain Famotidine [Pepcid] 20 mg PO BID #30 tablet ALBUTEROL NEB's [Proventil 0.083% NEBS] 2.5 mg IH Q4HRT PRN #30 nebu PRN Reason: Shortness Of Breath Cyanocobalamin [Vitamin B-12] 1,000 mcg PO QDAY #30 tablet
[2019-12-12 14:41] LABS: BUN/Creatinine Ratio 12; Blood Urea Nitrogen 13 mg/dL (9-20); Calcium 8.2 mg/dL (8.4-10.2); Hemolysis Index 0
[2019-12-12 15:27] VITALS: BP 105/60
[2019-12-12] MEDS ORDERED: ATOVAQUONE 750 MG/5 ML ORAL SUSP PO SCH (17:00)
[2019-12-13] MEDS ORDERED: FLUCONAZOLE 100 MG TAB PO SCH (10:00)
== END 2019-12-12 16:30 | disposition home or self-care (01) | DRG 974 ==
LOC: ED 14:12 → 3A 18:37 → 4A 12-03 18:49
PROVIDERS: ADMIT Internal Medicine; ATTEND Internal Medicine
PROC: 0BDD8ZX Extraction of Right Middle Lung Lobe, Via Natural or Artificial Opening Endoscopic, Diagnostic (ICD-10-PCS; principal; 2019-12-09)
DX: B20 Human immunodeficiency virus [HIV] disease (principal); J18.9 Pneumonia, unspecified organism; D61.2 Aplastic anemia due to other external agents; B37.81 Candidal esophagitis; E87.1 Hypo-osmolality and hyponatremia; R59.1 Generalized enlarged lymph nodes; R16.2 Hepatomegaly with splenomegaly, not elsewhere classified; D47.3 Essential (hemorrhagic) thrombocythemia; E87.5 Hyperkalemia; Z03.818 Encounter for observation for suspected exposure to other biological agents ruled out
CPT/HCPCS: 36415; 71046; 71275; 74177; 80048; 80053; 81001; 82024; 82607; 82728; 82747; 83550; 83615; 83930; 84145; 84300; 85007; 85025; 85379; 86140; 86665; 86689; 87040; 87116; 87449; 87497; 87536; 88112; 88305; 88312; 88342; 94640; G0378; J0171; J0456; J0610; J0696; J1450; J1650; J2250; J2370; J2405; J2704; J3010; J7030; J7050; Q9967; U0003

== ENCOUNTER 2020-02-26 10:15 | Emergency (ER) | payer OTHER ==
[2020-02-26 10:21] VITALS: BP 100/67
[2020-02-26] MEDS ORDERED: dexAMETHasone 20 MG/5 ML VIAL IM ONE (14:30)
[2020-02-26] MEDS ORDERED: FAMOTIDINE 20 MG TAB PO ONE (14:31)
[2020-02-26] MEDS ORDERED: diphenhydrAMINE 25 MG CAP PO ONE (14:31)
--- NOTE | 2020-02-26 15:58 | Emergency Department Report ---
ED Allergic Reaction HPI - General Chief complaint: Skin Rash Stated complaint: RASH Time Seen by Provider: 02/26/20 14:10 Source: patient Mode of arrival: Ambulatory Limitations: No Limitations - History of Present Illness Initial Comments: Patient is a 34-year-old male presents emergency room with complaints of a rash that began yesterday. He has associated itching. Patient states that he was discharged from the hospital yesterday after being diagnosed with pneumonia. Patient was sent home on azithromycin. He denies any known allergies. He de nies any shortness of breath, difficulty swallowing, sensation of throat closing, lesions or blisters in the mouth, mouth pain. He denies any new soaps, detergents, lotions, foods, anything different other than the medication. He has a past medical history of HIV. No allergies to medications. - Related Data Previous Rx's Medication Instructions Recorded Last Taken Type Ipratropium/Albuterol Sulfate 1 ampul IH Q6HR #120 ampul.neb 02/24/20 Unknown Rx [DUONEB *Not for PRN Use*] Atovaquone [Mepron] 750 mg PO BID 25 Days ml 02/25/20 Unknown Rx Azithromycin [Zithromax TAB] 500 mg PO QDAY #5 tablet 02/25/20 Unknown Rx predniSONE [Deltasone] 20 mg PO QDAY #5 tablet 02/25/20 Unknown Rx Famotidine [Pepcid] 40 mg PO QHS #5 tablet 02/26/20 Unknown Rx Prednisone [predniSONE 10 mg 10 mg PO .TAPER #1 tab.ds.pk 02/26/20 Unknown Rx (6-Day Pack, 21 Tabs)] diphenhydrAMINE [Benadryl CAP] 50 mg PO Q8HR PRN #14 capsule 02/26/20 Unknown Rx levoFLOXacin [Levaquin] 750 mg PO QDAY 5 Days #5 tablet 02/26/20 Unknown Rx Allergies Allergy/AdvReac Type Severity Reaction Status Date / Time No Known Allergies Allergy Verified 12/02/19 14:17 ED Review of Systems ROS: Stated complaint: RASH Other details as noted in HPI Comment: All other systems reviewed and negative ED Past Medical Hx - Past Medical History Previous Medical History?: Yes Hx Hypertension: No Hx Heart Attack/AMI: No Hx Congestive Heart Failure: No Hx Diabetes: No Hx Deep Vein Thrombosis: No Hx Pulmonary Embolism: No Hx Liver Disease: No Hx Renal Disease: No Hx Seizures: No Hx Asthma: No Hx COPD: No Hx Tuberculosis: No Hx Dementia: No Hx HIV: No Additional medical history: pneumonia in December 2019, pnemonia in February 2020 - Surgical History Past Surgical History?: No Hx Coronary Stent: No Hx Pacemaker: No Hx Internal Defibrillator: No - Social History Smoking Status: Never Smoker - Medications Home Medications: Home Medications Medication Instructions Recorded Confirmed Last Taken Type Ipratropium/Albuterol Sulfate 1 ampul IH Q6HR #120 ampul.neb 02/24/20 Unknown Rx [DUONEB *Not for PRN Use*] Atovaquone [Mepron] 750 mg PO BID 25 Days ml 02/25/20 Unknown Rx Azithromycin [Zithromax TAB] 500 mg PO QDAY #5 tablet 02/25/20 Unknown Rx predniSONE [Deltasone] 20 mg PO QDAY #5 tablet 02/25/20 Unknown Rx Famotidine [Pepcid] 40 mg PO QHS #5 tablet 02/26/20 Unknown Rx Prednisone [predniSONE 10 mg 10 mg PO .TAPER #1 tab.ds.pk 02/26/20 Unknown Rx (6-Day Pack, 21 Tabs)] diphenhydrAMINE [Benadryl CAP] 50 mg PO Q8HR PRN #14 capsule 02/26/20 Unknown Rx levoFLOXacin [Levaquin] 750 mg PO QDAY 5 Days #5 tablet 02/26/20 Unknown Rx ED Physical Exam - General Limitations: No Limitations General appearance: alert, in no apparent distress - Head Head exam: Present: atraumatic, normocephalic - Eye Eye exam: Present: normal appearance - ENT ENT exam: Present: normal orophraynx, mucous membranes moist, other (no angioedema, no tongue edema, uvula is midline no uvular edema or deviation, no oral lesions, no mucosal lesions) - Respiratory Respiratory exam: Present: normal lung sounds bilaterally. Absent: respiratory distress, wheezes, rales, rhonchi, stridor, chest wall tenderness, accessory muscle use, decreased breath sounds, prolonged expiratory - Cardiovascular Cardiovascular Exam: Present: regular rate, normal rhythm, normal heart sounds. Absent: systolic murmur, diastolic murmur, rubs, gallop - Neurological Exam Neurological exam: Present: alert, oriented X3 - Psychiatric Psychiatric exam: Present: normal affect, normal mood - Skin Skin exam: Present: warm, dry, urticaria (BUE and trunk, no blisters, no skin denuding, no necrosis, appears to be raised whelps(urticaria)) ED Course Vital Signs 02/26/20 10:18 Temperature 97.8 F Pulse Rate 96 H Respiratory 18 Rate Blood Pressure 100/67 O2 Sat by Pulse 97 Oximetry ED Medical Decision Making - Medical Decision Making Patient is a 34-year-old male presents emergency room with complaints of a rash that began yesterday. He has associated itching. Patient states that he was discharged from the hospital yesterday after being diagnosed with pneumonia. Patient was sent home on azithromycin. He denies any known allergies. He denies any shortness of breath, difficulty swallowing, sensation of throat closing, lesions or blisters in the mouth, mouth pain. He denies any new soaps, detergents, lotions, foods, anything different other than the medication. He has a past medical history of HIV. No allergies to medications. Vitals are normal. On exam: no angioedema, no tongue edema, uvula is midline no uvular edema or deviation, no oral lesions, no mucosal lesions, BUE and trunk, no bl isters, no skin denuding, no necrosis, appears to be raised whelps(urticaria). Examination consistent with allergic reaction. No signs of angioedema. No signs of Ibrahim-Yaya syndrome. Patient given dexamethasone, Benadryl, Pepcid and symptoms significantly improved and urticaria was resolving. Discussed case with Dr. Cabrera who advised to tell the patient to stop taking azithromycin and give patient Levaquin. Patient given prescription for Levaquin, Pepcid, Benadryl, steroids. Advised patient Please stop taking azithromycin and begin taking Levaquin. Please take medications as prescribed. Please follow-up with infectious disease. Please follow-up with a primary care doctor. Return to emergency room immediately for any new or worsening symptoms. Critical care attestation.: If time is entered above; I have spent that time in minutes in the direct care of this critically ill patient, excluding procedure time. ED Disposition Clinical Impression: Urticaria Allergic reaction Qualifiers: Encounter type: initial encounter Qualified Code(s): T78.40XA - Allergy, unspecified, initial encounter Disposition: DC-01 TO HOME OR SELFCARE Is pt being admited?: No Does the pt Need Aspirin: No Condition: Stable Instructions: Urticaria (ED), Antibiotic Medication Allergy (ED) Additional Instructions: Please stop taking azithromycin and begin taking Levaquin. Please take medications as prescribed. Please follow-up with infectious disease. Please follow-up with a primary care doctor. Return to emergency room immediately for any new or worsening symptoms. Prescriptions: Famotidine [Pepcid] 40 mg PO QHS #5 tablet diphenhydrAMINE [Benadryl CAP] 50 mg PO Q8HR PRN #14 capsule PRN Reason: itching levoFLOXacin [Levaquin] 750 mg PO QDAY 5 Days #5 tablet Prednisone [predniSONE 10 mg (6-Day Pack, 21 Tabs)] 10 mg PO .TAPER #1 tab.ds.pk Referrals: MITCHEL PELAEZ MD [Staff Physician] - 2-3 Days SHELLEY MEANS MD [Staff Physician] - 2-3 Days [facility] [Provider Group] - 2-3 Days [facility] [Outside] - 2-3 Days Time of Disposition: 15:55 Print Language: MOHAWK
== END 2020-02-26 16:40 | disposition home or self-care (01) ==
LOC: ED 10:15
DX: T78.40XA Allergy, unspecified, initial encounter (principal); L50.8 Other urticaria; X58.XXXA Exposure to other specified factors, initial encounter
CPT/HCPCS: 96372; 99282; J1100

== ENCOUNTER 2020-04-11 22:16 | Emergency (ER) | payer OTHER ==
[2020-04-11 23:46] LABS: Hematocrit 29.7 % (35.5-45.6); Hemoglobin 9.6 gm/dl (11.8-15.2); Mean Corpuscular HGB Conc 32 % (32-34); Mean Corpuscular Volume 83 fl (84-94); Platelet Count 338 K/mm3 (140-440); Red Blood Count 3.58 M/mm3 (3.65-5.03); Red Cell Distribution Width 17.6 % (13.2-15.2)
[2020-04-11 23:48] LABS: Basophils # (Auto) 0.1 K/mm3 (0.0-0.1); Basophils % (Auto) 1.1 % (0.0-1.8); Eosinophils # (Auto) 0.2 K/mm3 (0.0-0.4); Eosinophils % (Auto) 3.7 % (0.0-4.3); Lymphocytes # (Auto) 1.7 K/mm3 (1.2-5.4); Lymphocytes % (Auto) 30.6 % (13.4-35.0); Monocytes # (Auto) 1.3 K/mm3 (0.0-0.8)
--- NOTE | 2020-04-11 23:55 | XRay Report ---
CHEST 2 VIEWS INDICATION: "coughing up blood". COMPARISON: 03/14/2020. FINDINGS: Support devices: None. Heart: Within normal limits. Lungs/Pleura: Dense infiltrate greatest at the right perihilar region and right base and to a lesser extent at the left chest. The distribution is unchanged from previous exams. No significant pleural effusion. IMPRESSION: Infiltrate right greater than left without significant change from previous exams. The f indings are concerning for tumor. Superimposed pneumonitis may be present as well. Signer Name: Isaiah Roy MD Signed: 04/11/2020 11:50 PM Workstation Name: [id number]
[2020-04-12 00:10] LABS: Albumin 3.8 g/dL (3.9-5); BUN/Creatinine Ratio 13; Blood Urea Nitrogen 12 mg/dL (9-20); Calcium 9.1 mg/dL (8.4-10.2); Hemolysis Index 4
[2020-04-12 00:16] LABS: Alanine Aminotransferase < 5 units/L (7-56)
--- NOTE | 2020-04-12 02:55 | Emergency Department Report ---
- General Chief Complaint: Extremity Problem,Nontraumatic Stated Complaint: COUGH/BILATERAL LEG PAIN Time Seen by Provider: 04/12/20 01:17 Source: patient Mode of arrival: Ambulatory Limitations: No Limitations - History of Present Illness Initial Comments: 35-year-old male, history of HIV, currently on antivirals presents to ED following an episode of hemoptysis. Patient reports he has had a cough x1 week. Patient reports on yesterday he had blood-tinged sputum. Patient is unaware of his current CD4 count or viral load. Patient has had multiple admissions for pneumonia last 5 months. He was diagnosed with HIV during his admission 5 months ago. Patient has yet to follow-up with any physicians, including infectious disease, on an outpatient basis. When asked why he has not followed up, patient only states "I don't know." Patient reports that he does have insurance. Patient has been tested for COVID during previous admissions and was found to be negative. He was also seen by ID, who did not feel as if his pneumonia was due to HIV-associated PJP. MD Complaint: cough -: week(s) (1) Severity: moderate Consistency: intermittent Improves With: nothing Worsens With: nothing Associated Symptoms: cough. denies: fever, chills, headache, chest pain, shortness of breath - Related Data Previous Rx's Medication Instructions Recorded Last Taken Type Ipratropium/Albuterol Sulfate 1 ampul IH Q6HR #120 ampul.neb 02/24/20 Unknown Rx [DUONEB *Not for PRN Use*] Atovaquone [Mepron] 750 mg PO BID 25 Days ml 02/25/20 Unknown Rx predniSONE [Deltasone] 20 mg PO QDAY #5 tablet 02/25/20 Unknown Rx Famotidine [Pepcid] 40 mg PO QHS #5 tablet 02/26/20 Unknown Rx Prednisone [predniSONE 10 mg 10 mg PO .TAPER #1 tab.ds.pk 02/26/20 Unknown Rx (6-Day Pack, 21 Tabs)] diphenhydrAMINE [Benadryl CAP] 50 mg PO Q8HR PRN #14 capsule 02/26/20 Unknown Rx levoFLOXacin [Levaquin] 750 mg PO QDAY 5 Days #5 tablet 02/26/20 Unknown Rx Azithromycin [Zithromax TAB] 500 mg PO QDAY 3 Days #3 tablet 03/14/20 Unknown Rx Dexamethasone [Taperdex] 1.5 mg PO DAILY 7 Days #1 tab.ds.pk 03/14/20 Unknown Rx Doxycycline Hyclate 100 mg PO BID 10 Days #20 tablet. 03/14/20 Unknown Rx Allergies Allergy/AdvReac Type Severity Reaction Status Date / Time No Known Allergies Allergy Verified 12/02/19 14:17 ED Review of Systems ROS: Stated complaint: COUGH/BILATERAL LEG PAIN Other details as noted in HPI Comment: All other systems reviewed and negative Constitutional: denies: chills, fever Respiratory: cough, other (Reports hemoptysis) Cardiovascular: denies: chest pain ED Past Medical Hx - Past Medical History Previous Medical History?: Yes Hx Hypertension: No Hx Heart Attack/AMI: No Hx Congestive Heart Failure: No Hx Diabetes: No Hx Deep Vein Thrombosis: No Hx Pulmonary Embolism: No Hx Liver Disease: No Hx Renal Disease: No Hx Seizures: No Hx Psychiatric Treatment: No Hx Asthma: No Hx COPD: No Hx Tuberculosis: No Hx Dementia: No Hx HIV: Yes (ON ANTI-VIRAL'S) Additional medical history: PNA in December 2019, PNA in February 2020 - Surgical History Hx Coronary Stent: No Hx Pacemaker: No Hx Internal Defibrillator: No - Social History Smoking Status: Never Smoker Substance Use Type: None - Medications Home Medications: Home Medications Medication Instructions Recorded Confirmed Last Taken Type Ipratropium/Albuterol Sulfate 1 ampul IH Q6HR #120 ampul.neb 02/24/20 Unknown Rx [DUONEB *Not for PRN Use*] Atovaquone [Mepron] 750 mg PO BID 25 Days ml 02/25/20 Unknown Rx predniSONE [Deltasone] 20 mg PO QDAY #5 tablet 02/25/20 Unknown Rx Famotidine [Pepcid] 40 mg PO QHS #5 tablet 02/26/20 Unknown Rx Prednisone [predniSONE 10 mg 10 mg PO .TAPER #1 tab.ds.pk 02/26/20 Unknown Rx (6-Day Pack, 21 Tabs)] diphenhydrAMINE [Benadryl CAP] 50 mg PO Q8HR PRN #14 capsule 02/26/20 Unknown Rx levoFLOXacin [Levaquin] 750 mg PO QDAY 5 Days #5 tablet 02/26/20 Unknown Rx Azithromycin [Zithromax TAB] 500 mg PO QDAY 3 Days #3 tablet 03/14/20 Unknown Rx Dexamethasone [Taperdex] 1.5 mg PO DAILY 7 Days #1 tab.ds.pk 03/14/20 Unknown Rx Doxycycline Hyclate 100 mg PO BID 10 Days #20 tablet.dr 03/14/20 Unknown Rx ED Physical Exam - General Limitations: No Limitations General appearance: alert, in no apparent distress - Head Head exam: Present: atraumatic, normocephalic - Eye Eye exam: Present: normal appearance, EOMI - ENT ENT exam: Present: mucous membranes moist - Neck Neck exam: Present: normal inspection - Respiratory Respiratory exam: Present: normal lung sounds bilaterally. Absent: respiratory distress - Cardiovascular Cardiovascular Exam: Present: regular rate, normal rhythm - GI/Abdominal GI/Abdominal exam: Present: soft. Absent: distended, tenderness - Neurological Exam Neurological exam: Present: alert, oriented X3 - Psychiatric Psychiatric exam: Present: normal affect, normal mood - Skin Skin exam: Present: warm, dry, intact, normal color ED Course Vital Signs 04/11/20 04/12/20 04/12/20 23:18 01:35 02:15 Temperature 98.2 F 98.1 F Pulse Rate 85 84 80 Respiratory 18 20 21 Rate Blood Pressure 102/71 102/61 Blood Pressure 111/69 [Left] O2 Sat by Pulse 99 100 99 Oximetry 04/12/20 04/12/20 02:24 03:00 Temperature 98.1 F Pulse Rate 84 81 Respiratory 20 22 Rate Blood Pressure 111/69 101/56 Blood Pressure [Left] O2 Sat by Pulse 100 97 Oximetry ED Medical Decision Making - Lab Data Result diagrams: 04/11/20 23:32 04/11/20 23:32 - Radiology Data Radiology results: report reviewed, image reviewed - Medical Decision Making 35-year-old male with HIV, cough, one episode of hemoptysis. Labs unremarkable. CTA chest was negative for PE, however, is consistent with previous chest CT from 2 months ago with showed a masslike consolidation on the right side that is concerning for malignancy. Patient again advised of need to follow-up on an outpatient basis instead of coming to the emergency room. Follow-up information will be given again. Return precautions given. - Differential Diagnosis Malignancy, PE, pneumonia Critical care attestation.: If time is entered above; I have spent that time in minutes in the direct care of this critically ill patient, excluding procedure time. ED Disposition Clinical Impression: Lung mass Disposition: DC-01 TO HOME OR SELFCARE Is pt being admited?: No Condition: Stable Instructions: Lymphadenopathy (ED) Referrals: ROSALBA SANCHEZ MD [Staff Physician] - 3-5 Days HAY VILLAR MD [Staff Physician] - 3-5 Days KAYA ALCAZAR MD [Staff Physician] - 3-5 Days Forms: Work/School Release Form(ED) Time of Disposition: 05:14
--- NOTE | 2020-04-12 04:56 | Cat Scan Report ---
CT angio chest INDICATION / CLINICAL INFORMATION: Patient has hemoptysis, abnormal CXR. TECHNIQUE: Axial CT images were obtained after injection of Omnipaque 350, 100 cc IV injection. IV contrast usin g CTA protocol. 3 plane MIP / 3D reconstructions were produced. All CT scans at this location are per formed using CT dose reduction for ALARA by means of automated exposure control. COMPARISON: CTA chest 02/22/2020. FINDINGS: Persistent masslike consolidation at the right hilum with extension into the upper middle and lower l obes. Consolidation is mildly improved within the superior segment of the right lower lobe. There is mild increasing nodularity peripherally at the lower lobes bilaterally. There is also mild increasing nodularity in the right middle lobe. The mass in the region the right hilum is unchanged measuring approximately 5 cm. Mediastinal adenopa thy is unchanged. The largest component is at the right paratracheal region measuring 3.4 cm. Imaging of the upper abdomen demonstrates extensive retroperitoneal adenopathy. Negative for aneurysm, dissection or pulmonary embolus. A small right effusion remains. IMPRESSION: 1. Negative for pulmonary embolus. 2. Masslike consolidation centered at the right hilum remains. Extensive adenopathy at the mediastinu m is not significantly changed. Findings are highly worrisome for tumor. 3. Mild changing nodularity in the lungs. It is uncertain if this is inflammatory or neoplastic. 4. Extensive retroperitoneal adenopathy. Signer Name: Isaiah Roy MD Signed: 04/12/2020 4:51 AM Workstation Name: [id number]
[2020-04-12 05:39] VITALS: BP 101/59
== END 2020-04-12 05:35 | disposition home or self-care (01) ==
LOC: ED 22:16
DX: R91.8 Other nonspecific abnormal finding of lung field (principal); Z79.899 Other long term (current) drug therapy
CPT/HCPCS: 36415; 71046; 71275; 80053; 85025; 99284; Q9967

== ENCOUNTER 2020-05-08 20:59 | Emergency (ER) | payer OTHER ==
[2020-05-09 00:40] LABS: Basophils % (Auto) 0.1 % (0.0-1.8); Hematocrit 31.8 % (35.5-45.6); Hemoglobin 10.4 gm/dl (11.8-15.2); Lymphocytes # (Auto) 1.3 K/mm3 (1.2-5.4); Lymphocytes % (Auto) 11.1 % (13.4-35.0); Mean Corpuscular HGB Conc 33 % (32-34); Mean Corpuscular Volume 83 fl (84-94); Monocytes # (Auto) 0.4 K/mm3 (0.0-0.8); Monocytes % (Auto) 3.7 % (0.0-7.3); Platelet Count 277 K/mm3 (140-440); Red Blood Count 3.82 M/mm3 (3.65-5.03); Red Cell Distribution Width 16.3 % (13.2-15.2)
[2020-05-09 00:56] LABS: Alanine Aminotransferase 6 units/L (7-56); Albumin 3.6 g/dL (3.9-5); BUN/Creatinine Ratio 13; Blood Urea Nitrogen 17 mg/dL (9-20); Calcium 8.8 mg/dL (8.4-10.2); Hemolysis Index 2
--- NOTE | 2020-05-09 02:20 | Vascular Lab Report ---
DUPLEX DOPPLER LOWER EXTREMITY VEINS, RIGHT INDICATION / CLINICAL INFORMATION: pain in calf and thigh, fever. TECHNIQUE: Duplex doppler imaging was performed through the veins of the right lower extremity using venous comp ression and other maneuvers. COMPARISON: None available. FINDINGS: RIGHT COMMON FEMORAL VEIN: Negative. RIGHT FEMORAL VEIN: Negative. RIGHT POPLITEAL VEIN: Negative. RIGHT CALF VEINS: Negative. ADDITIONAL FINDINGS: There is an enlarged 4.0 x 1.8 cm node in the right groin. IMPRESSION: 1. No sonographic evidence for DVT in the right lower extremity. 2. Enlarged right inguinal lymph node. Signer Name: Sergio Gallardo MD Signed: 05/09/2020 2:16 AM Workstation Name: [email or web address]
--- NOTE | 2020-05-09 02:21 | XRay Report ---
CHEST 2 VIEWS INDICATION / CLINICAL INFORMATION: fever, tachycardia. COMPARISON: Chest x-ray on 04/11/2020 FINDINGS: SUPPORT DEVICES: None. HEART / MEDIASTINUM: No significant abnormality. LUNGS / PLEURA: Stable right perihilar parenchymal opacification. No pneumothorax. ADDITIONAL FINDINGS: No significant additional findings. IMPRESSION: 1. Stable right perihilar parenchymal opacification compared with prior study. No new acute findings. Signer Name: Sergio Gallardo MD Signed: 05/09/2020 2:16 AM Workstation Name: [id number]
--- NOTE | 2020-05-09 02:34 | Emergency Department Report ---
ED General Adult HPI - General Chief complaint: Nausea/Vomiting/Diarrhea Stated complaint: VOMITING Time Seen by Provider: 05/09/20 01:14 Source: patient Mode of arrival: Ambulatory Limitations: No Limitations - History of Present Illness Initial comments: 35-year-old -[place] male patient presents with complaints of cough, fever, and vomiting x2 days and chronic bilateral leg pain and swelling. Patient has been seen here in ED with similar complaints on 03/14/2020 and 04/11/2020. He has history of HIV and states he is currently compliant with his antiretrovirals and following with a Dr. Garcia, infectious disease. Patient does note no his current CD4 count. Patient reports a fever of 102 at home that was relieved with Tylenol. He denies any loss of taste or smell or known contacts with COVID-19. He reports 3 episodes of vomiting yesterday when trying to eat and one episode of diarrhea. He denies any hematemesis/coffee-ground emesis, melena/hematochezia, hemoptysis, or chest pain. He does report some mild shortness of breath, but denies any recent long travel, or history of DVT/PE. - Related Data Previous Rx's Medication Instructions Recorded Last Taken Type Ipratropium/Albuterol Sulfate 1 ampul IH Q6HR #120 ampul.neb 02/24/20 Unknown Rx [DUONEB *Not for PRN Use*] Atovaquone [Mepron] 750 mg PO BID 25 Days ml 02/25/20 Unknown Rx predniSONE [Deltasone] 20 mg PO QDAY #5 tablet 02/25/20 Unknown Rx Famotidine [Pepcid] 40 mg PO QHS #5 tablet 02/26/20 Unknown Rx Prednisone [predniSONE 10 mg 10 mg PO .TAPER #1 tab.ds.pk 02/26/20 Unknown Rx (6-Day Pack, 21 Tabs)] diphenhydrAMINE [Benadryl CAP] 50 mg PO Q8HR PRN #14 capsule 02/26/20 Unknown Rx levoFLOXacin [Levaquin] 750 mg PO QDAY 5 Days #5 tablet 02/26/20 Unknown Rx Azithromycin [Zithromax TAB] 500 mg PO QDAY 3 Days #3 tablet 03/14/20 Unknown Rx Dexamethasone [Taperdex] 1.5 mg PO DAILY 7 Days #1 tab.ds.pk 03/14/20 Unknown Rx Doxycycline Hyclate 100 mg PO BID 10 Days #20 tablet. 03/14/20 Unknown Rx Amoxicillin/Potassium Clav 1 each PO BID 10 Days #20 tablet 05/09/20 Unknown Rx [Augmentin 875-125 Tablet] Azithromycin [Zithromax Z-GARLAND] 0 mg PO DAILY 5 Days #6 tab 05/09/20 Unknown Rx Promethazine HCl [Promethazine TAB] 12.5 mg PO [id number] PRN #12 tab 05/09/20 Unknown Rx Allergies Allergy/AdvReac Type Severity Reaction Status Date / Time No Known Allergies Allergy Verified 12/02/19 14:17 ED Review of Systems ROS: Stated complaint: VOMITING Other details as noted in HPI Constitutional: chills, fever, malaise. denies: diaphoresis Respiratory: cough. denies: orthopnea Cardiovascular: as per HPI. denies: chest pain Endocrine: denies: excessive sweating Gastrointestinal: nausea, vomiting, diarrhea. denies: abdominal pain, constipation, hematemesis, melena, hematochezia Musculoskeletal: denies: back pain, arthralgia Skin: denies: rash, lesions, change in color Neurological: denies: headache, numbness, paresthesias, confusion Hematological/Lymphatic: denies: swollen glands ED Past Medical Hx - Past Medical History Previous Medical History?: Yes Hx Hypertension: No Hx Heart Attack/AMI: No Hx Congestive Heart Failure: No Hx Diabetes: No Hx Deep Vein Thrombosis: No Hx Pulmonary Embolism: No Hx Liver Disease: No Hx Renal Disease: No Hx Seizures: No Hx Psychiatric Treatment: No Hx Asthma: No Hx COPD: No Hx Tuberculosis: No Hx Dementia: No Hx HIV: Yes (ON ANTI-VIRAL'S) Additional medical history: PNA in December 2019, PNA in February 2020 - Surgical History Past Surgical History?: No Hx Coronary Stent: No Hx Pacemaker: No Hx Internal Defibrillator: No - Social History Smoking Status: Never Smoker Substance Use Type: None - Medications Home Medications: Home Medications Medication Instructions Recorded Confirmed Last Taken Type Ipratropium/Albuterol Sulfate 1 ampul IH Q6HR #120 ampul.neb 02/24/20 Unknown Rx [DUONEB *Not for PRN Use*] Atovaquone [Mepron] 750 mg PO BID 25 Days ml 02/25/20 Unknown Rx predniSONE [Deltasone] 20 mg PO QDAY #5 tablet 02/25/20 Unknown Rx Famotidine [Pepcid] 40 mg PO QHS #5 tablet 02/26/20 Unknown Rx Prednisone [predniSONE 10 mg 10 mg PO .TAPER #1 tab.ds.pk 02/26/20 Unknown Rx (6-Day Pack, 21 Tabs)] diphenhydrAMINE [Benadryl CAP] 50 mg PO Q8HR PRN #14 capsule 02/26/20 Unknown Rx levoFLOXacin [Levaquin] 750 mg PO QDAY 5 Days #5 tablet 02/26/20 Unknown Rx Azithromycin [Zithromax TAB] 500 mg PO QDAY 3 Days #3 tablet 03/14/20 Unknown Rx Dexamethasone [Taperdex] 1.5 mg PO DAILY 7 Days #1 tab.ds.pk 03/14/20 Unknown Rx Doxycycline Hyclate 100 mg PO BID 10 Days #20 tablet.dr 03/14/20 Unknown Rx Amoxicillin/Potassium Clav 1 each PO BID 10 Days #20 tablet 05/09/20 Unknown Rx [Augmentin 875-125 Tablet] Azithromycin [Zithromax Z-GARLAND] 0 mg PO DAILY 5 Days #6 tab 05/09/20 Unknown Rx Promethazine HCl [Promethazine TAB] 12.5 mg PO [id number] PRN #12 tab 05/09/20 Unknown Rx ED Physical Exam - General Limitations: No Limitations General appearance: alert, in no apparent distress - Head Head exam: Present: atraumatic, normocephalic - Eye Eye exam: Present: normal appearance. Absent: scleral icterus - ENT ENT exam: Present: normal orophraynx, mucous membranes moist - Neck Neck exam: Present: normal inspection, full ROM. Absent: tenderness, lymphadenopathy - Respiratory Respiratory exam: Present: normal lung sounds bilaterally. Absent: respiratory distress, wheezes, rales, rhonchi, stridor, chest wall tenderness - Cardiovascular Cardiovascular Exam: Present: regular rate, normal rhythm. Absent: systolic murmur, diastolic murmur, rubs, gallop - GI/Abdominal GI/Abdominal exam: Present: soft, normal bowel sounds. Absent: distended, tenderness, guarding, rebound, rigid - Extremities Exam Extremities exam: Present: full ROM, other (Edema noted to left ankle and foot and right calf-patient reports these are chronic and denies any new change) - Back Exam Back exam: Present: full ROM - Neurological Exam Neurological exam: Present: alert, oriented X3 - Psychiatric Psychiatric exam: Present: normal affect, normal mood - Skin Skin exam: Present: warm, dry, intact, normal color. Absent: rash, cyanosis, diaphoretic, ecchymosis ED Course Vital Signs 05/08/20 05/09/20 05/09/20 23:23 01:21 05:00 Temperature 100.2 F H 99.1 F 100.0 F H Pulse Rate 109 H 99 H 99 H Respiratory 18 17 17 Rate Blood Pressure 103/67 Blood Pressure 99/58 [Right] O2 Sat by Pulse 97 100 100 Oximetry 05/09/20 06:42 Temperature 98.4 F Pulse Rate 92 H Respiratory 18 Rate Blood Pressure Blood Pressure 99/54 [Right] O2 Sat by Pulse 97 Oximetry ED Medical Decision Making - Lab Data Result diagrams: 05/08/20 23:43 05/09/20 Unknown Lab Results 05/08/20 05/09/20 05/09/20 Range/Units 23:43 01:31 01:31 WBC 11.7 H (4.5-11.0) K/mm3 RBC 3.82 (3.65-5.03) M/mm3 Hgb 10.4 L (11.8-15.2) gm/dl Hct 31.8 L (35.5-45.6) % MCV 83 L (84-94) fl MCH 27 L (28-32) pg MCHC 33 (32-34) % RDW 16.3 H (13.2-15.2) % Plt Count 277 (140-440) K/mm3 Lymph % (Auto) 11.1 L (13.4-35.0) % [place] % (Auto) 3.7 (0.0-7.3) % Eos % (Auto) 0.0 (0.0-4.3) % Baso % (Auto) 0.1 (0.0-1.8) % Lymph # (Auto) 1.3 (1.2-5.4) K/mm3 [place] # (Auto) 0.4 (0.0-0.8) K/mm3 Eos # (Auto) 0.0 (0.0-0.4) K/mm3 Baso # (Auto) 0.0 (0.0-0.1) K/mm3 Seg Neutrophils % 85.1 H (40.0-70.0) % Seg Neutrophils # 9.9 H (1.8-7.7) K/mm3 D-Dimer 1673.01 H (0-234) ng/mlDDU Sodium (137-145) mmol/L Potassium (3.6-5.0) mmol/L Chloride (98-107) mmol/L Carbon Dioxide (22-30) mmol/L Anion Gap mmol/L BUN (9-20) mg/dL Creatinine (0.8-1.3) mg/dL Estimated GFR ml/min BUN/Creatinine Ratio % Glucose (75-100) mg/dL Lactic Acid 2.00 (0.7-2.0) mmol/L Calcium (8.4-10.2) mg/dL Total Bilirubin (0.1-1.2) mg/dL AST (5-40) units/L ALT (7-56) units/L Alkaline Phosphatase (35-129) units/L NT-Pro-B Natriuret Pep (0-450) pg/mL Total Protein (6.3-8.2) g/dL Albumin (3.9-5) g/dL Albumin/Globulin Ratio % 05/09/05/09/20 Range/Units Unknown Unknown WBC (4.5-11.0) K/mm3 RBC (3.65-5.03) M/mm3 Hgb (11.8-15.2) gm/dl Hct (35.5-45.6) % MCV (84-94) fl MCH (28-32) pg MCHC (32-34) % RDW (13.2-15.2) % Plt Count (140-440) K/mm3 Lymph % (Auto) (13.4-35.0) % [place] % (Auto) (0.0-7.3) % Eos % (Auto) (0.0-4.3) % Baso % (Auto) (0.0-1.8) % Lymph # (Auto) (1.2-5.4) K/mm3 [place] # (Auto) (0.0-0.8) K/mm3 Eos # (Auto) (0.0-0.4) K/mm3 Baso # (Auto) (0.0-0.1) K/mm3 Seg Neutrophils % (40.0-70.0) % Seg Neutrophils # (1.8-7.7) K/mm3 D-Dimer (0-234) ng/mlDDU Sodium 130 L (137-145) mmol/L Potassium 4.5 (3.6-5.0) mmol/L Chloride 93.8 L (98-107) mmol/L Carbon Dioxide 25 (22-30) mmol/L Anion Gap 16 mmol/L BUN 17 (9-20) mg/dL Creatinine 1.3 (0.8-1.3) mg/dL Estimated GFR > 60 ml/min BUN/Creatinine Ratio 13 % Glucose 100 (75-100) mg/dL Lactic Acid (0.7-2.0) mmol/L Calcium 8.8 (8.4-10.2) mg/dL Total Bilirubin 0.70 (0.1-1.2) mg/dL AST 9 (5-40) units/L ALT 6 L (7-56) units/L Alkaline Phosphatase 62 (35-129) units/L NT-Pro-B Natriuret Pep 592.9 H (0-450) pg/mL Total Protein 7.7 (6.3-8.2) g/dL Albumin 3.6 L (3.9-5) g/dL Albumin/Globulin Ratio 0.9 % - Radiology Data Radiology results: report reviewed CHEST 2 VIEWS INDICATION / CLINICAL INFORMATION: fever, tachycardia. COMPARISON: Chest x-ray on 04/11/2020 FINDINGS: SUPPORT DEVICES: None. HEART / MEDIASTINUM: No significant abnormality. LUNGS / PLEURA: Stable right perihilar parenchymal opacification. No pneumothorax. ADDITIONAL FINDINGS: No significant additional findings. IMPRESSION: 1. Stable right perihilar parenchymal opacification compared with prior study. No new acute findings. DUPLEX DOPPLER LOWER EXTREMITY VEINS, RIGHT INDICATION / CLINICAL INFORMATION: pain in calf and thigh, fever. TECHNIQUE: Duplex doppler imaging was performed through the veins of the right lower extremity using venous compression and other maneuvers. COMPARISON: None available. FINDINGS: RIGHT COMMON FEMORAL VEIN: Negative. RIGHT FEMORAL VEIN: Negative. RIGHT POPLITEAL VEIN: Negative. RIGHT CALF VEINS: Negative. ADDITIONAL FINDINGS: There is an enlarged 4.0 x 1.8 cm node in the right groin. IMPRESSION: 1. No sonographic evidence for DVT in the right lower extremity. 2. Enlarged right inguinal lymph node. - Medical Decision Making 35-year-old -[place] male patient presents with complaints of cough, fever, and vomiting x2 days and chronic bilateral leg pain and swelling. Patient has been seen here in ED with similar complaints on 03/14/2020 and 04/11/2020. He has history of HIV and states he is currently compliant with his antiretrovirals and following with a Dr. Garcia, infectious disease. Patient does note no his current CD4 count. Patient reports a fever of 102 at home that was relieved with Tylenol. He denies any loss of taste or smell or known contacts with COVID-19. He reports 3 episodes of vomiting yesterday when trying to eat and one episode of diarrhea. He denies any hematemesis/coffee-ground emesis, melena/hematochezia, hemoptysis, or chest pain. He does report some mild shortness of breath, but denies any recent long travel, or history of DVT/PE. Lungs are clear to auscultation bilaterally on exam. Doppler ultrasound is negative for DVT. Chest x-ray shows the following: Stable right perihilar p arenchymal opacification compared with prior study. Dimer ordered prior to Doppler, attempted to cancel this test but was unable to do so. Dimer today is in the 1600s. PERC score = 0. Patient has a known mass in the lungs that is concerning for a tumor and neoplastic process-dimer is likely elevated due to this. D-dimer was also elevated on 02/22/2020 at 1122 and CTA chest at that time was negative for PE and showed lung mass. Last CT of chest was performed 03/14/2020 and was negative for PE also. Given fever and mildly elevated white count, findings are more suspicious for an infectious process. Lactic acid = 1.1 will treat for lower respiratory tract infection given patient is immunoc ompromised. 1 g IV Rocephin given 1 L saline bolus. Will discharge home on azithromycin and Augmentin which should also cover for COVID-19 pneumonia. Patient instructed to obtain COVID 19 testing within the next 24 hours and to self quarantine. Also recommend vitamin C and zinc. Recommend follow-up with his infectious disease doctor within 2 days. Patient is afebrile and non- tachycardic. He was ambulated for 60 seconds and his pulse ox remained at 98 to 100% on room air. He is stable for discharge home. Discussed in great detail strict return precautions with patient who verbalizes understanding. Critical care attestation.: If time is entered above; I have spent that time in minutes in the direct care of this critically ill patient, excluding procedure time. ED Disposition Clinical Impression: Lower respiratory infection, Low grade fever, Suspected COVID-19 virus infection Disposition: - TO HOME OR SELFCARE Is pt being admited?: No Condition: Stable Instructions: COVID-19, Community-acquired Pneumonia (ED) Additional Instructions: Please seek COVID testing within the next 24 hours from 1 of the facilities provided. Please also follow with your primary care provider and your infectious disease provider within 2 days. Please start taking [id number] vitamin C and zinc to help boost your immune system. Seek immediate emergency treatment if you develop new or worsening symptoms or are unable to break your fever. Prescriptions: Promethazine HCl [Promethazine TAB] 12.5 mg PO [id number] PRN #12 tab PRN Reason: Nausea Amoxicillin/Potassium Clav [Augmentin 875-125 Tablet] 1 each PO BID 10 Days #20 tablet Azithromycin [Zithromax Z-GARLAND] 0 mg PO DAILY 5 Days #6 tab Referrals: PRIMARY CARE, [Primary Care Provider] - 3-5 Days Forms: Work/School Release Form(ED)
[2020-05-09] MEDS ORDERED: SODIUM CHLORIDE 0.9% 1000 ML 1,000 ML IV ONE (03:26)
[2020-05-09] MEDS ORDERED: cefTRIAXone/NS 1 GM/50 ML 1 GM/50 ML BAG IV ONE (03:49)
[2020-05-09] MEDS ORDERED: ONDANSETRON 4 MG ODT TAB PO ONE (04:38)
[2020-05-09] MEDS ORDERED: ACETAMINOPHEN 500 MG TAB PO ONE (05:19)
[2020-05-09] MEDS ORDERED: ACETAMINOPHEN 500 MG TAB ONE (05:21)
[2020-05-09 06:36] LABS: Bilirubin,Urine NEG (Negative); Blood,Urine NEG (Negative); Color,Urine Yellow (Yellow); Protein,Urine <15 mg/dL mg/dL (Negative); WBC,Urine < 1.0 /HPF (0.0-6.0)
[2020-05-09 06:43] VITALS: BP 99/54
== END 2020-05-09 07:03 | disposition home or self-care (01) ==
LOC: ED 20:59
DX: J22 Unspecified acute lower respiratory infection (principal); R50.9 Fever, unspecified; Z20.828 Contact with and (suspected) exposure to other viral communicable diseases; Z21 Asymptomatic human immunodeficiency virus [HIV] infection status; Z79.899 Other long term (current) drug therapy; Z98.890 Other specified postprocedural states
CPT/HCPCS: 36415; 71046; 80053; 81001; 82140; 83880; 85025; 85379; 87040; 93971; 96365; 99284; J0696; J7030; Q0162

== ENCOUNTER 2020-08-14 | Inpatient (IN) | payer OTHER ==
[2020-08-14] MEDS ORDERED: ACETAMINOPHEN 500 MG TAB PO STA (00:34)
[2020-08-14] MEDS ORDERED: SODIUM CHLORIDE 0.9% 500 ML 500 ML IV ONE (00:34)
[2020-08-14] MEDS ORDERED: SODIUM CHLORIDE 0.9% 1000 ML 1,000 ML IV ONE ×2 (00:55)
[2020-08-14] MEDS ORDERED: KETOROLAC 30 MG/1 ML INJ IV ONE (00:56)
--- NOTE | 2020-08-14 01:02 | Emergency Department Report ---
HPI - General Chief Complaint: Headache Time Seen by Provider: 08/14/20 00:42 - HPI HPI: Room 35 The patient is a 35-year-old male present with a chief complaint of fever chills. The patient states his symptoms began yesterday at work while developing a headache chills nonproductive cough and shortness of breath. Patient admits to occasional rhinorrhea. Patient states he did not notice a fever at home but he was found to be febrile in the ED. Patient denies nausea/vomiting. Of note the patient is HIV positive currently on therapy. The patient states he believes his last CD4 count was normal in June 2020 ED Past Medical Hx - Past Medical History Previous Medical History?: Yes Hx HIV: Yes (ON ANTI-VIRAL'S. Normal CD4 June 2020) Additional medical history: PNA in December 2019, PNA in February 2020 - Surgical History Past Surgical History?: No - Family History Family history: no significant - Social History Smoking Status: Never Smoker Substance Use Type: None (Denies illicit drug use) - Medications Home Medications: Home Medications Medication Instructions Recorded Confirmed Last Taken Type Ipratropium/Albuterol Sulfate 1 ampul IH Q6HR #120 ampul.neb 02/24/20 Unknown Rx [DUONEB *Not for PRN Use*] Atovaquone [Mepron] 750 mg PO BID 25 Days ml 02/25/20 Unknown Rx predniSONE [Deltasone] 20 mg PO QDAY #5 tablet 02/25/20 Unknown Rx Famotidine [Pepcid] 40 mg PO QHS #5 tablet 02/26/20 Unknown Rx Prednisone [predniSONE 10 mg 10 mg PO .TAPER #1 tab.ds.pk 02/26/20 Unknown Rx (6-Day Pack, 21 Tabs)] diphenhydrAMINE [Benadryl CAP] 50 mg PO Q8HR PRN #14 capsule 02/26/20 Unknown Rx levoFLOXacin [Levaquin] 750 mg PO QDAY 5 Days #5 tablet 02/26/20 Unknown Rx Azithromycin [Zithromax TAB] 500 mg PO QDAY 3 Days #3 tablet 03/14/20 Unknown Rx Dexamethasone [Taperdex] 1.5 mg PO DAILY 7 Days #1 tab.ds.pk 03/14/20 Unknown Rx Doxycycline Hyclate 100 mg PO BID 10 Days #20 tablet. 03/14/20 Unknown Rx Amoxicillin/Potassium Clav 1 each PO BID 10 Days #20 tablet 05/09/20 Unknown Rx [Augmentin 875-125 Tablet] Azithromycin [Zithromax Z-GARLAND] 0 mg PO DAILY 5 Days #6 tab 05/09/20 Unknown Rx Promethazine HCl [Promethazine TAB] 12.5 mg PO O2HBPOD PRN #12 tab 05/09/20 Unknown Rx ED Review of Systems ROS: Stated complaint: HEADACHE/EYE PAIN/NAUSEA Other details as noted in HPI Constitutional: chills. denies: fever Eyes: denies: eye pain ENT: denies: throat pain Respiratory: cough, shortness of breath Cardiovascular: denies: chest pain Endocrine: no symptoms reported Gastrointestinal: denies: nausea, vomiting Genitourinary: denies: dysuria Musculoskeletal: denies: back pain Neurological: headache Physical Exam - Physical Exam Vital Signs: Vital Signs 08/14/20 00:32 Temperature 101.0 F H Pulse Rate 111 H Respiratory 16 Rate Blood Pressure 111/64 O2 Sat by Pulse 94 Oximetry Physical Exam: GENERAL: The patient is well-developed well-nourished male lying on stretcher not appearing to be in acute distress. [] HEENT: Normocephalic. Atraumatic. Extraocular motions are intact. Patient has moist mucous membranes. NECK: Supple. No meningitic signs are noted. There is no nuchal rigidity CHEST/LUNGS: Clear to auscultation. There is no respiratory distress noted. HEART/CARDIOVASCULAR: Regular. There is tachycardia. There is no gallop rub or murmur. ABDOMEN: Abdomen is soft, nontender. Patient has normal bowel sounds. There is no abdominal distention. SKIN: There is no rash. There is no edema. There is no diaphoresis. NEURO: The patient is awake, alert, and oriented. The patient is cooperative. The patient has no focal neurologic deficits. The patient has normal speech. Cranial nerves II through XII grossly intact. GCS 15 MUSCULOSKELETAL: There is no evidence of acute injury. ED Course Vital Signs 08/14/20 00:32 Temperature 101.0 F H Pulse Rate 111 H Respiratory 16 Rate Blood Pressure 111/64 O2 Sat by Pulse 94 Oximetry - Central Line Placement Right Femoral Consent Obtained: verbal consent Time Out Performed: Yes Patient Placed on Monitor/Pulse Ox: Yes MD Prep: mask, gown, gloves Central Line Prep: Chlorhexidine scrub Local Anesthesia Used: Lidocaine 1% Amount of Anesthesia Used (mls): 5 Ultrasound Used for Placement: No Central Line Lumen Inserted: triple Bloods Obtained for Lab: No Complications: none, arterial puncture/cannula Additional Comments: Right femoral CVL site unsuccessful. Site abandoned and left femoral region attempted Left Femoral Consent Obtained: verbal consent Time Out Performed: Yes Patient Placed on Monitor/Pulse Ox: Yes Prep: mask, gown, gloves Central Line Prep: Povidone-Iodine 1% Local Anesthesia Used: Lidocaine 1% Amount of Anesthesia Used (mls): 5 Ultrasound Used for Placement: No Central Line Lumen Inserted: triple Bloods Obtained for Lab: No Central Line Position: good blood return Dressing Applied: Tegaderm Patient Tolerated Procedure: well Complications: none ED Medical Decision Making - Lab Data Result diagrams: 08/14/20 00:41 08/14/20 00:41 - Radiology Data Radiology results: report reviewed (Chest x-ray), image reviewed (Chest x-ray) interpreted by me: Chest x-ray-right lower lobe opacities. No pneumothorax. No foreign body seen [facility] [address] [place] [address] XRay Report Signed Patient: PENNY FERNANDO III MR #: [id number] : 1985 Acct:[id number] Age/Sex: 35 / M ADM Date: 08/14/20 Loc: ED Att ending Dr: Ordering Physician: CHANDNI LUU MD Date of Service: 08/14/20 Procedure(s): XR chest 1V ap Accession Number(s): [id number] cc: CHANDNI LUU MD Fluoro Time In Minutes: XR chest 1V ap INDICATION / CLINICAL INFORMATION: possible Sepsis COMPARISON: 05/09/2020 x-ray FINDINGS: SUPPORT DEVICES: None. HEART / MEDIASTINUM: No significant abnormality. LUNGS / PLEURA: There are persistent right greater than left scattered nodular opacities with mild worsening in the right lateral lower lung zone.. Costophrenic sulci are sharp. No pneumothorax. ADDITIONAL FINDINGS: No significant additional findings. IMPRESSION: 1. There are persistent bilateral nodular opacities which is worse in the right lateral lower lung zone on today's examination. Signer Name: Eladio Blackburn MD Signed: 08/14/2020 1:31 AM Workstation Name: [id number] Transcribed By: CS Dictated By: Eladio Blackburn MD Electronically Authenticated By: Eladio Blackburn MD Signed Date/Time: 08/14/20130 DD/ 5 TD/TT: - Differential Diagnosis Pneumonia, bronchitis, viral syndrome, COVID-19 Critical care attestation.: If time is entered above; I have spent that time in minutes in the direct care of this critically ill patient, excluding procedure time. ED Disposition Clinical Impression: Pneumonia, Sepsis, Suspected COVID-19 virus infection, Hypoxia Disposition: DC09 OP ADMIT IP TO THIS HOSP Is pt being admited?: Yes Does the pt Need Aspirin: No Condition: Serious Instructions: Bacterial Pneumonia (ED) Time of Disposition: 06:14 (Hospitalist notified (Dr Roque))
[2020-08-14 01:16] LABS: Alanine Aminotransferase 17 units/L (7-56); Albumin 3.8 g/dL (3.9-5); BUN/Creatinine Ratio 13; Blood Urea Nitrogen 17 mg/dL (9-20); Calcium 8.7 mg/dL (8.4-10.2); Hemolysis Index 1
[2020-08-14] MEDS ORDERED: AZITHROMYCIN 500 MG in SODIUM CHLORIDE 0.9% 250ML 250 ML IV ONE (01:21)
[2020-08-14] MEDS ORDERED: cefTRIAXone/NS 1 GM/50 ML 1 GM/50 ML BAG IV ONE ×2 (01:21→09:00)
[2020-08-14 01:30] LABS: INR 1.21 (0.87-1.13)
[2020-08-14 01:35] LABS: Basophils % (Auto) 0.1 % (0.0-1.8); Hematocrit 35.1 % (35.5-45.6); Hemoglobin 11.3 gm/dl (11.8-15.2); Lymphocytes # (Auto) 2.7 K/mm3 (1.2-5.4); Mean Corpuscular HGB Conc 32 % (32-34); Mean Corpuscular Volume 81 fl (84-94); Monocytes # (Auto) 0.6 K/mm3 (0.0-0.8); Monocytes % (Auto) 8.8 % (0.0-7.3); Platelet Count 316 K/mm3 (140-440); Red Blood Count 4.33 M/mm3 (3.65-5.03)
--- NOTE | 2020-08-14 01:36 | XRay Report ---
XR chest 1V ap INDICATION / CLINICAL INFORMATION: possible Sepsis COMPARISON: 05/09/2020 x-ray FINDINGS: SUPPORT DEVICES: None. HEART / MEDIASTINUM: No significant abnormality. LUNGS / PLEURA: There are persistent right greater than left scattered nodular opacities with mild wo rsening in the right lateral lower lung zone.. Costophrenic sulci are sharp. No pneumothorax. ADDITIONAL FINDINGS: No significant additional findings. IMPRESSION: 1. There are persistent bilateral nodular opacities which is worse in the right lateral lower lung zo ne on today's examination. Signer Name: Eladio Blackburn MD Signed: 08/14/2020 1:31 AM Workstation Name: [id number]
[2020-08-14] MEDS ORDERED: NORepinephrine/NS 4 MG-250 ML 4 MG/250 ML BAG IV ONE (04:03)
[2020-08-14 04:10] LABS: Bilirubin,Urine NEG (Negative); Blood,Urine NEG (Negative); Color,Urine Yellow (Yellow); Mucus,Urine FEW /HPF; Protein,Urine <15 mg/dL mg/dL (Negative); Urobilinogen,Urine < 2.0 mg/dL (<2.0)
[2020-08-14 07:48] LABS: C-Reactive Protein 8.7 mg/dL (0.00-1.30)
--- NOTE | 2020-08-14 07:50 | History and Physical Report ---
History of Present Illness Date of examination: 08/14/20 Date of admission: 08/14/20 06:15 Chief complaint: "I was having a hard time breathing" History of present illness: This is a 35-year-old male with HIV ("last CD4 count was normal"), pneumonia (x2 in 2019) and bilateral swollen lower extremities with discoloration who presents the emergency department on 08/14 with a 1 day history of shortness of breath, headache, dry cough, chills and subjective fever. Patient denies any chest pain, hemoptysis, nausea, vomiting, diarrhea, loss of sense of taste or smell, night sweats, or recent weight loss. Upon arrival to the emergency department patient was found to be febrile, tachycardic and hypotensive which was unresponsive to fluid resuscitation and a CVL was placed and he was started on Levophed for blood pressure support. Patient was found to have elevated D-dimer (1712), hyponatremia 130, hypochloremia as 95.8, and his chest x-ray showed persistent bilateral nodular opacities which is worse on the right lateral lower lung zone. Patient will be admitted to the hospital service with a Covid PUI and infectious disease and CCM was consulted. Advance care planning conducted in the emergency department, home medications reconciled, and prior visits re viewed. Past History Past Medical History: HIV/AIDS, other (PNA (2019)) Past Surgical History: No surgical history Social history: single, Lives alone, full code. denies: smoking, alcohol abuse, prescription drug abuse, IV drug use Family history: no significant family history Medications and Allergies Allergies Allergy/AdvReac Type Severity Reaction Status Date / Time No Known Allergies Allergy Verified 12/02/19 14:17 Home Medications Medication Instructions Recorded Confirmed Last Taken Type Ipratropium/Albuterol Sulfate 1 ampul IH Q6HR #120 ampul.neb 02/24/20 Unknown Rx [DUONEB *Not for PRN Use*] Atovaquone [Mepron] 750 mg PO BID 25 Days ml 02/25/20 Unknown Rx predniSONE [Deltasone] 20 mg PO QDAY #5 tablet 02/25/20 Unknown Rx Famotidine [Pepcid] 40 mg PO QHS #5 tablet 02/26/20 Unknown Rx Prednisone [predniSONE 10 mg 10 mg PO .TAPER #1 tab.ds.pk 02/26/20 Unknown Rx (6-Day Pack, 21 Tabs)] diphenhydrAMINE [Benadryl CAP] 50 mg PO Q8HR PRN #14 capsule 02/26/20 Unknown Rx levoFLOXacin [Levaquin] 750 mg PO QDAY 5 Days #5 tablet 02/26/20 Unknown Rx Azithromycin [Zithromax TAB] 500 mg PO QDAY 3 Days #3 tablet 03/14/20 Unknown Rx Dexamethasone [Taperdex] 1.5 mg PO DAILY 7 Days #1 tab.ds.pk 03/14/20 Unknown Rx Doxycycline Hyclate 100 mg PO BID 10 Days #20 tablet.dr 03/14/20 Unknown Rx Amoxicillin/Potassium Clav 1 each PO BID 10 Days #20 tablet 05/09/20 Unknown Rx [Augmentin 875-125 Tablet] Azithromycin [Zithromax Z-GARLAND] 0 mg PO DAILY 5 Days #6 tab 05/09/20 Unknown Rx Promethazine HCl [Promethazine TAB] 12.5 mg PO [id number] PRN #12 tab 05/09/20 Unknown Rx Active Meds: Active Medications Norepinephrine (Levophed Drip 4 Mg/Ns 250 Ml) 4 mg in 250 mls @ 7.5 mls/hr IV TITR ONE; Protocol Stop: 08/15/20 13:22 Last Titration: 08/14/20 05:25 Dose: 6 mcg/min, 22.5 mls/hr Documented by: Review of Systems Constitutional: fever (subjective), lethargy (for one day), no weight loss, no weight gain, no chills, no sweats, no night sweats, no anorexia, no fatigue, no weakness, no malaise Ears, nose, mouth and throat: no ear pain, no ear discharge, no tinnitis, no decreased hearing, no nose pain, no nasal congestion, no epistaxis, no bleeding gums, no dental pain, no mouth pain, no sore throat, no post-nasal drip Cardiovascular: palpitations, shortness of breath, leg edema, no chest pain, no orthopnea, no rapid/irregular heart beat ("swelling after taking HIV meds"), no syncope, no lightheadedness, no dyspnea on exertion, no high blood pressure Respiratory: cough, shortness of breath, no cough with sputum, no excessive sputum, no hemoptysis, no congestion, no wheezing, no pleurisy, no pain, no pain on inspiration, no sleep apnea, no respiratory infections, no home oxygen Gastrointestinal: no abdominal pain, no nausea, no vomiting, no diarrhea, no constipation, no change in bowel habits, no hematemesis, no coffee ground emesis, no BRBPR, no melena, no hematochezia, no loss of appetite Genitourinary Male: no hematuria, no flank pain, no discharge, no urinary frequency, no urinary hesitancy, no nocturia Rectal: no pain, no bleeding Musculoskeletal: no neck pain, no shooting arm pain, no arm numbness/tingling, no low back pain, no shooting leg pain, no leg numbness/tingling, no frequent falls, no loss of height Integumentary: darkening of skin, color changes, other (BLE swollen (nonpitting edema), nontender with dark spots ), no rash, no pruritis, no redness Neurological: no head injury, no transient paralysis, no paralysis, no weakness Exam - Constitutional Vitals: Temp Pulse Resp BP Pulse Ox 98.4 F 79 21 103/68 92 08/14/20 03:15 08/14/20 06:45 08/14/20 06:45 08/14/20 06:45 08/14/20 06:45 General appearance: Present: no acute distress - EENT Eyes: Present: PERRL, EOM intact ENT: hearing intact, clear oral mucosa, dentition normal - Neck Neck: Present: normal ROM - Respiratory Respiratory effort: normal Respiratory: bilateral: diminished - Cardiovascular Rhythm: regular Heart Sounds: Present: S1 & S2. Absent: systolic murmur, diastolic murmur - Extremities Extremities: no ischemia, pulses intact, pulses symmetrical, normal temperature, normal color, Full ROM Extremity abnormal: edema - Peripheral Assessment Bilateral Lower Extremity Edema Type: Non-pitting Capillary Refill: < 3 seconds Skin Temperature: Warm Peripheral Pulses: within normal limits - Abdominal General gastrointestinal: Present: soft, non-tender, non-distended, normal bowel sounds - Integumentary Integumentary: Present: clear, warm, dry - Musculoskeletal Musculoskeletal: strength equal bilaterally - Psychiatric Psychiatric: appropriate mood/affect, cooperative - Neurologic Neurologic: CNII-XII intact, no focal deficits, moves all extremities - Allied Health Allied health notes reviewed: nursing Results - Labs CBC & Chem 7: 08/14/20 00:41 08/14/20 06:51 Labs: Laboratory Last Values WBC 7.1 K/mm3 (4.5-11.0) 08/14/20 00:41 RBC 4.33 M/mm3 (3.65-5.03) 08/14/20 00:41 Hgb 11.3 gm/dl (11.8-15.2) L 08/14/20 00:41 Hct 35.1 % (35.5-45.6) L 08/14/20 00:41 MCV 81 fl (84-94) L 08/14/20 00:41 MCH 26 pg (28-32) L 08/14/20 00:41 MCHC 32 % (32-34) 08/14/20 00:41 RDW 17.0 % (13.2-15.2) H 08/14/20 00:41 Plt Count 316 K/mm3 (140-440) 08/14/20 00:41 Lymph % (Auto) 38.0 % (13.4-35.0) H 08/14/20 00:41 [place] % (Auto) 8.8 % (0.0-7.3) H 08/14/20 00:41 Eos % (Auto) 0.0 % (0.0-4.3) 08/14/20 00:41 Baso % (Auto) 0.1 % (0.0-1.8) 08/14/20 00:41 Lymph # (Auto) 2.7 K/mm3 (1.2-5.4) 08/14/20 00:41 [place] # (Auto) 0.6 K/mm3 (0.0-0.8) 08/14/20 00:41 Eos # (Auto) 0.0 K/mm3 (0.0-0.4) 08/14/20 00:41 Baso # (Auto) 0.0 K/mm3 (0.0-0.1) 08/14/20 00:41 Seg Neutrophils % 53.1 % (40.0-70.0) 08/14/20 00:41 Seg Neutrophils # 3.8 K/mm3 (1.8-7.7) 08/14/20 00:41 PT 15.1 Sec. (12.2-14.9) H 08/14/20 00:41 INR 1.21 (0.87-1.13) H 08/14/20 00:41 D-Dimer 1712.29 ng/mlDDU (0-234) H 08/14/20 06:51 VBG pH 7.413 (7.320-7.420) 08/14/20 00:41 Sodium 130 mmol/L (137-145) L 08/14/20 00:41 Potassium 4.2 mmol/L (3.6-5.0) 08/14/20 00:41 Chloride 95.8 mmol/L (98-107) L 08/14/20 00:41 Carbon Dioxide 24 mmol/L (22-30) 08/14/20 00:41 Anion Gap 14 mmol/L 08/14/20 00:41 BUN 17 mg/dL (9-20) 08/14/20 00:41 Creatinine 1.3 mg/dL (0.8-1.3) 08/14/20 00:41 Estimated GFR > 60 ml/min 08/14/20 00:41 BUN/Creatinine Ratio 13 % 08/14/20 00:41 Glucose 113 mg/dL (75-100) H 08/14/20 06:51 Lactic Acid 0.70 mmol/L (0.7-2.0) 08/14/20 03:42 Calcium 8.7 mg/dL (8.4-10.2) 08/14/20 00:41 Total Bilirubin 0.50 mg/dL (0.1-1.2) 08/14/20 00:41 AST 15 units/L (5-40) 08/14/20 00:41 ALT 17 units/L (7-56) 08/14/20 00:41 Alkaline Phosphatase 69 units/L (35-129) 08/14/20 00:41 Lactate Dehydrogenase 164 units/L (91-180) 08/14/20 06:51 C-Reactive Protein 8.70 mg/dL (0.00-1.30) H 08/14/20 06:51 Total Protein 8.5 g/dL (6.3-8.2) H 08/14/20 00:41 Albumin 3.8 g/dL (3.9-5) L 08/14/20 00:41 Albumin/Globulin Ratio 0.8 % 08/14/20 00:41 Urine Color Yellow (Yellow) 08/14/20 03:45 Urine Turbidity Clear (Clear) 08/14/20 03:45 Urine pH 6.0 (5.0-7.0) 08/14/20 03:45 Ur Specific [place] 1.009 (1.003-1.030) 08/14/20 03:45 Urine Protein <15 mg/dl mg/dL (Negative) 08/14/20 03:45 Urine Glucose (UA) Neg mg/dL (Negative) 08/14/20 03:45 Urine Ketones Neg mg/dL (Negative) 08/14/20 03:45 Urine Blood Neg (Negative) 08/14/20 03:45 Urine Nitrite Neg (Negative) 08/14/20 03:45 Urine Bilirubin Neg (Negative) 08/14/20 03:45 Urine Urobilinogen < 2.0 mg/dL (<2.0) 08/14/20 03:45 Ur Leukocyte Esterase Neg (Negative) 08/14/20 03:45 Urine WBC (Auto) 1.0 /HPF (0.0-6.0) 08/14/20 03:45 Urine RBC (Auto) 0.0 /HPF (0.0-6.0) 08/14/20 03:45 Urine Mucus Few /HPF 08/14/20 03:45 Microbiology: Microbiology 08/14/20 00:36 Peripheral/Venous Blood Culture - Preliminary Culture in Progress 08/14/20 00:41 Peripheral/Venous Blood Culture - Preliminary Culture in Progress - Imaging and Cardiology Chest x-ray: report reviewed, image reviewed - Diagnostic Impressions Diagnostic Impressions: 08/14/2020 CXR: There are persistent bilateral nodular opacities which is worse in the right lateral lower lung zone on today's examination. Thakur/IV: IV Catheter Type [Left Femoral Triple Lumen Cath ] IV Catheter Type [Right Peripheral IV Forearm] Assessment and Plan - Patient Problems (1) Sepsis Current Visit: Yes Status: Acute Plan to address problem: -Presented with tachycardia, hypotension, febrile, CXR with opacities -Antibiotic therapy -Infectious disease consulted, patient recommendation -08/14 blood cultures x2 pending -Vasopressor support for blood pressure (2) Suspected COVID-19 virus infection Current Visit: Yes Status: Acute Plan to address problem: -08/14/2020 CXR shows persistent bilateral nodular opacities which is worse on the right lower lung zone -Presented with fever, hypotension, shortness of breath -08/14 COVID-19 PCR pending -Infectious disease consulted, appreciate recommendations -Supplemental oxygen as needed -Anticoagulation per protocol -Pulmonary hygiene -OOB 3 times daily -Vitamin C, zinc, vitamin D -08/14 antibiotic therapy with azithromycin and Rocephin -Trend inflammatory markers for risk stratification -Droplet/contact precautions (3) Acute respiratory failure with hypoxia Current Visit: Yes Status: Acute Plan to address problem: -Supplemental oxygen as needed -Pulmonary hygiene -SPO2 monitoring (4) D-dimer, elevated Current Visit: No Status: Acute Plan to address problem: -08/14 D-dimer 1712 -08/14 bilateral lower extremity duplex ultrasound shows no acute DVT/SVT -08/14 VQ scan shows relative photopenia in the right lower lobe where there is also patchy airspace disease on the accompanying chest x-ray. A ventilation component of this exam was not performed; however, these findings would likely technically fall within the criteria of an intermediate probability on a traditional ventilation/perfusion scan (i.e. triple match study). -Trend D-dimer (5) Hyponatremia Current Visit: Yes Status: Acute Plan to address problem: -Patient with a sodium of 130 -S/p 2.5 normal saline in the emergency department -Trend BMP -Avoid rapid correction -Monitor neuro status (6) Hypochloremia Current Visit: Yes Status: Acute Plan to address problem: -Presented with a chloride of 95.8 -s/p 2.5 L normal saline in the emergency department -Trend BMP -MIVF (7) HIV (human immunodeficiency virus infection) Current Visit: Yes Status: Chronic Plan to address problem: -Continue home antiretroviral therapy -Patient states last CD4 count was normal - (8) DVT prophylaxis Current Visit: No Status: Acute Plan to address problem: -SCDs to bilateral lower extremities while in bed -Heparin subq (9) Full code status Current Visit: Yes Status: Acute
[2020-08-14] MEDS ORDERED: ALBUTEROL 2.5 MG/3 ML NEBU IH PRN (07:54)
[2020-08-14] MEDS ORDERED: MORPHINE 2 MG/1 ML INJ IV PRN (07:54)
[2020-08-14] MEDS ORDERED: MAGNESIUM HYDROXIDE (MOM) ORAL LIQD UDC PO PRN (07:54)
[2020-08-14] MEDS ORDERED: ACETAMINOPHEN 325 MG TAB PO PRN (07:54)
[2020-08-14] MEDS ORDERED: ONDANSETRON 4 MG/2 ML INJ IV PRN (07:54)
[2020-08-14] MEDS ORDERED: NALOXONE 0.4 MG/1 ML INJ IV PRN (07:54)
[2020-08-14] MEDS ORDERED: MORPHINE 4 MG/1 ML INJ IV PRN (07:54)
[2020-08-14] MEDS ORDERED: SODIUM CHLORIDE 0.9% 1000 ML 1,000 ML IV SCH (08:15)
[2020-08-14] MEDS ORDERED: dexAMETHasone 4 MG/ML VIAL IV SCH (10:00)
[2020-08-14] MEDS: ZINC SULFATE 220 MG CAP PO SCH (12:22)
[2020-08-14] MEDS: ASCORBIC ACID 500 MG TAB PO SCH (12:22)
[2020-08-14] MEDS: FAMOTIDINE 20 MG/2 ML INJ IV SCH ×2 (12:22→22:29)
[2020-08-14] MEDS: HEPARIN 5,000 UNIT/1 ML VIAL SUB-Q SCH ×2 (12:22→22:25)
[2020-08-14] MEDS: CHOLECALCIFEROL (VIT D3) 5,000 UNIT TAB PO SCH (12:44)
--- NOTE | 2020-08-14 12:57 | Vascular Lab Report ---
DUPLEX DOPPLER LOWER EXTREMITY VEINS, BILATERAL INDICATION / CLINICAL INFORMATION: r/o dvt. Shortness of breath, inactivity TECHNIQUE: Duplex doppler imaging was performed through the veins of both lower extremities using venous vaishali loretta and other maneuvers. COMPARISON: None available. FINDINGS: RIGHT COMMON FEMORAL VEIN: Negative. RIGHT FEMORAL VEIN: Negative. RIGHT POPLITEAL VEIN: Negative. RIGHT CALF VEINS: Negative. LEFT COMMON FEMORAL VEIN: Negative. LEFT FEMORAL VEIN: Negative. LEFT POPLITEAL VEIN: Negative. LEFT CALF VEINS: Negative. ADDITIONAL FINDINGS: There are enlarged bilateral inguinal lymph nodes. IMPRESSION: 1. No sonographic evidence for DVT in either lower extremity. 2. Enlarged bilateral lymph nodes, likely reactive. Signer Name: Sergio Gallardo MD Signed: 08/14/2020 12:53 PM Workstation Name: [email or web address]
--- NOTE | 2020-08-14 14:08 | Consultation ---
History of Present Illness Consult date: 08/14/20 Requesting physician: SHALINI LAN Reason for consult: other (COVID-19 infection) History of present illness: PULMONARY/CCM CONSULT NOTE (Full dictation # [id number]) Please see dictated notes for full details Past History Past Medical History: HIV/AIDS, other (PNA (2019)) Past Surgical History: No surgical history Social history: single, Lives alone, full code. denies: smoking, alcohol abuse, prescription drug abuse, IV drug use Family history: no significant family history Medications and Allergies Allergies Allergy/AdvReac Type Severity Reaction Status Date / Time No Known Allergies Allergy Verified 12/02/19 14:17 Home Medications Medication Instructions Recorded Confirmed Last Taken Type Ipratropium/Albuterol Sulfate 1 ampul IH Q6HR #120 ampul.neb 02/24/20 Unknown Rx [DUONEB *Not for PRN Use*] Atovaquone [Mepron] 750 mg PO BID 25 Days ml 02/25/20 Unknown Rx predniSONE [Deltasone] 20 mg PO QDAY #5 tablet 02/25/20 Unknown Rx Famotidine [Pepcid] 40 mg PO QHS #5 tablet 02/26/20 Unknown Rx Prednisone [predniSONE 10 mg 10 mg PO .TAPER #1 tab.ds.pk 02/26/20 Unknown Rx (6-Day Pack, 21 Tabs)] diphenhydrAMINE [Benadryl CAP] 50 mg PO Q8HR PRN #14 capsule 02/26/20 Unknown Rx levoFLOXacin [Levaquin] 750 mg PO QDAY 5 Days #5 tablet 02/26/20 Unknown Rx Azithromycin [Zithromax TAB] 500 mg PO QDAY 3 Days #3 tablet 03/14/20 Unknown Rx Dexamethasone [Taperdex] 1.5 mg PO DAILY 7 Days #1 tab.ds.pk 03/14/20 Unknown Rx Doxycycline Hyclate 100 mg PO BID 10 Days #20 tablet.dr 03/14/20 Unknown Rx Amoxicillin/Potassium Clav 1 each PO BID 10 Days #20 tablet 05/09/20 Unknown Rx [Augmentin 875-125 Tablet] Azithromycin [Zithromax Z-GARLAND] 0 mg PO DAILY 5 Days #6 tab 05/09/20 Unknown Rx Promethazine HCl [Promethazine TAB] 12.5 mg PO [id number] PRN #12 tab 05/09/20 Unknown Rx Active Meds: Active Medications Acetaminophen (Acetaminophen 325 Mg Tab) 650 mg PO Q6H PRN PRN Reason: Pain MILD(1-3)/Fever >100.5/LIU Albuterol (Albuterol 2.5 Mg/3 Ml Nebu) 2.5 mg IH Q3HRT PRN PRN Reason: Shortness Of Breath Ascorbic Acid (Ascorbic Acid 500 Mg Tab) 500 mg PO QDAY [facility] Last Admin: 08/14/20 12:22 Dose: 500 mg Documented by: Cholecalciferol (Cholecalciferol (Vit D3) 5,000 Unit Tab) 5,000 unit PO DAILY [facility] Dexamethasone (Dexamethasone 4 Mg/Ml Vial) 6 mg IV DAILY CEFERINO Stop: 08/23/20 10:01 Last Admin: 08/14/20 12:21 Dose: 6 mg Documented by: Famotidine (Famotidine 20 Mg/2 Ml Inj) 20 mg IV BID [facility] Last Admin: 08/14/20 12:22 Dose: 20 mg Documented by: Heparin Sodium (Porcine) (Heparin 5,000 Unit/1 Ml Vial) 5,000 unit SUB-Q Q12HR [facility] Last Admin: 08/14/20 12:22 Dose: 5,000 unit Documented by: Norepinephrine (Levophed Drip 4 Mg/Ns 250 Ml) 4 mg in 250 mls @ 7.5 mls/hr IV TITR ONE; Protocol Stop: 08/15/20 13:22 Last Titration: 08/14/20 12:20 Dose: 0 mcg/min, 0 mls/hr Documented by: Sodium Chloride (Nacl 0.9% 1000 Ml) 1,000 mls @ 75 mls/hr IV DIRECT CEFERINO Azithromycin 500 mg/ Sodium (Chloride) 250 mls @ 250 mls/hr IV Q24H CEFERINO; Protocol Ceftriaxone Sodium (Rocephin/Ns 2 Gm/100 Ml) 2 gm in 100 mls @ 200 mls/hr IV Q24H CEFERNIO; Protocol Magnesium Hydroxide (Magnesium Hydroxide (Mom) Oral Liqd Udc) 30 ml PO Q4H PRN PRN Reason: Constipation Morphine Sulfate (Morphine 2 Mg/1 Ml Inj) 2 mg IV Q4H PRN PRN Reason: Pain, Moderate (4-6) Morphine Sulfate (Morphine 4 Mg/1 Ml Inj) 4 mg IV Q4H PRN PRN Reason: Pain , Severe (7-10) Naloxone HCl (Naloxone 0.4 Mg/1 Ml Inj) 0.1 mg IV Q2MIN PRN PRN Reason: Res Rate </= 8 or 02 SAT < 92% Ondansetron HCl (Ondansetron 4 Mg/2 Ml Inj) 4 mg IV Q8H PRN PRN Reason: Nausea And Vomiting Sodium Chloride (Sodium Chloride 0.9% 10 Ml Flush Syringe) 10 ml IV BID [facility] Last Admin: 08/14/20 12:23 Dose: 10 ml Documented by: Sodium Chloride (Sodium Chloride 0.9% 10 Ml Flush Syringe) 10 ml IV PRN PRN PRN Reason: LINE FLUSH Zinc Sulfate (Zinc Sulfate 220 Mg Cap) 220 mg PO QDAY [facility] Last Admin: 08/14/20 12:22 Dose: 220 mg Documented by: Physical Examination Vital signs: Vital Signs Temp Pulse Resp BP Pulse Ox 101.0 F H 111 H 16 111/64 94 08/14/20 00:32 08/14/20 00:32 08/14/20 00:32 08/14/20 00:32 08/14/20 00:32 Results - Laboratory Findings CBC and BMP: 08/15/20 04:52 08/15/20 04:52 PT/INR, D-dimer PT 15.1 Sec. (12.2-14.9) H 08/14/20 00:41 INR 1.21 (0.87-1.13) H 08/14/20 00:41 D-Dimer 1712.29 ng/mlDDU (0-234) H 08/14/20 06:51 Abnormal lab findings: Abnormal Labs 08/14/20 08/14/20 08/14/20 00:41 00:41 00:41 Hgb 11.3 L Hct 35.1 L MCV 81 L MCH 26 L RDW 17.0 H Lymph % (Auto) 38.0 H [place] % (Auto) 8.8 H PT 15.1 H INR 1.21 H D-Dimer Sodium 130 L Chloride 95.8 L Glucose 110 H C-Reactive Protein Total Protein 8.5 H Albumin 3.8 L 08/14/20 08/14/20 06:51 06:51 Hgb Hct MCV MCH RDW Lymph % (Auto) [place] % (Auto) PT INR D-Dimer 1712.29 H Sodium Chloride Glucose 113 H C-Reactive Protein 8.70 H Total Protein Albumin
--- NOTE | 2020-08-14 14:33 | Nuclear Medicine Report ---
Perfusion Scan HISTORY: r/o PE. Acute shortness of breath TECHNIQUE: Patient was given 5 mCi of technetium MAA. COMPARISON: Chest x-ray from today FINDINGS: Fairly symmetric radiotracer uptake is seen in the lungs, although there is relative photo penia in the right lower lobe. The accompanying chest x-ray shows patchy bibasilar predominant airspa ce disease which is greatest in the right lower lobe. IMPRESSION: Relative photopenia in the right lower lobe where there is also patchy airspace disease on the accompanying chest x-ray. A ventilation component of this exam was not performed; however, the se findings would likely technically fall within the criteria of an intermediate probability on a tra ditional ventilation/perfusion scan (i.e. triple match study). Signer Name: Tony Gordon MD Signed: 08/14/2020 2:29 PM Workstation Name: [id number]
[2020-08-14] MEDS ORDERED: AZITHROMYCIN 500 MG in SODIUM CHLORIDE 0.9% 250ML 250 ML IV SCH (22:00)
[2020-08-14] MEDS ORDERED: cefTRIAXone/NS 2 GM/100 ML 2 GM/100 ML BAG IV SCH (22:00)
[2020-08-14] MEDS: cefTRIAXone/NS 2 GM/100 ML 2 GM/100 ML BAG IV SCH (22:25)
[2020-08-14] MEDS: AZITHROMYCIN 500 MG in SODIUM CHLORIDE 0.9% 250ML 250 ML IV SCH (23:00)
[2020-08-15] MEDS: AZITHROMYCIN 500 MG in SODIUM CHLORIDE 0.9% 250ML 250 ML IV SCH ×2 (06:00→06:15)
[2020-08-15 06:06] LABS: Basophils % (Auto) 0.3 % (0.0-1.8); Hematocrit 31.2 % (35.5-45.6); Hemoglobin 10.1 gm/dl (11.8-15.2); Lymphocytes # (Auto) 1.5 K/mm3 (1.2-5.4); Lymphocytes % (Auto) 35.9 % (13.4-35.0); Mean Corpuscular HGB Conc 32 % (32-34); Mean Corpuscular Volume 82 fl (84-94); Monocytes # (Auto) 0.3 K/mm3 (0.0-0.8); Monocytes % (Auto) 8.4 % (0.0-7.3); Platelet Count 235 K/mm3 (140-440); Red Blood Count 3.83 M/mm3 (3.65-5.03); Red Cell Distribution Width 17.3 % (13.2-15.2)
[2020-08-15 06:22] LABS: BUN/Creatinine Ratio 14; Blood Urea Nitrogen 11 mg/dL (9-20); Calcium 8.5 mg/dL (8.4-10.2); Hemolysis Index 2
[2020-08-15] MEDS: HEPARIN 5,000 UNIT/1 ML VIAL SUB-Q SCH (10:21)
[2020-08-15] MEDS: FAMOTIDINE 20 MG TAB PO SCH (10:22)
[2020-08-15] MEDS: ZINC SULFATE 220 MG CAP PO SCH (10:22)
[2020-08-15] MEDS: ASCORBIC ACID 500 MG TAB PO SCH (10:22)
[2020-08-15] MEDS: CHOLECALCIFEROL (VIT D3) 5,000 UNIT TAB PO SCH (13:32)
[2020-08-15] MEDS: methylPREDNISolone Sod Succinate 40 MG/1 ML INJ IV SCH (13:33)
--- NOTE | 2020-08-15 14:34 | Consultation ---
PULMONARY CRITICAL CARE CONSULTATION CONSULTING PHYSICIAN: Cindy Claire NP REASON FOR CONSULTATION: Person under investigation for COVID-19, HIV positive, shortness of breath. CHIEF COMPLAINT AND HISTORY OF PRESENT ILLNESS: The patient is a now 35-year-old male with past medical history significant amongst other things for a diagnosis of being HIV positive, but also had an abnormal CT of his chest, I believe early last year in about February of last year, presented complaining of 3 days of fevers, chills, cough was mostly nonproductive. He denied chest pain. He denied palpitations. He denied any known contacts with anyone with COVID-19 infection. He complained of some rhinorrhea. He came into the Emergency Room just to make sure nothing else was going on. While in the ER, he was placed on the pathway for rule out COVID and we are asked to assist with management. When I stopped by to see him, he was feeling better. He stated that his symptoms do not seem to have improved as a result of any particular intervention. He feels more reassurance. He denied new onset leg pain or swelling either unilaterally or bilaterally. Of note, he also had a normal CT scan at which time he had told me he has already had a bronchoscopy done that was essentially negative. He states that last year he believes, a repeat CT scan showed some improvement, but is not sure if he has been followed outpatient for the lung mass. This really is as much of the history of presentation as I have. I should mention he describes himself as a never smoker. PAST MEDICAL HISTORY: Again, HIV positive with a normal CD4 count according to him, and a history of abnormal chest x-ray, pneumonia are also in 2019. PAST SURGICAL HISTORY: Denies. He has had a bronchoscopy done. He does not know if there was any biopsies taken. MEDICATIONS: He was on at the time I stopped by to see him were reviewed, pertinent medications included the following: He was on Tylenol 650 mg p.o. q.6 hours p.r.n. mild pain or fevers, albuterol 2.5 mg nebulized q.3 hours p.r.n. shortness of breath, ascorbic acid 500 mg p.o. daily, vitamin D3 5000 units p.o. daily, dexamethasone 6 mg IV daily, Pepcid ____ mg IV b.i.d., heparin 5000 units subcutaneous q.12 hours. He had been on a Levophed drip in the Emergency Room. He received azithromycin 500 mg IV daily, Rocephin 2 g IV daily, morphine 2 mg IV q.4 hours p.r.n. moderate pain, Zofran 4 mg IV q.8 hours p.r.n. nausea and vomiting, and zinc sulfate 220 mg p.o. daily. ALLERGIES: No known drug allergies. DIET: Well-built gentleman. Denies acute weight loss or gain in the preceding few weeks to months. SOCIAL HISTORY: Lives in the community, lives alone, single. Denies alcohol, tobacco, or illicit drug use or abuse. FAMILY HISTORY: Otherwise, noncontributory. REVIEW OF SYSTEMS: No loss of consciousness. No new onset seizures. No new onset focal weakness. Denies gross hematochezia or melena. Denies gross hematuria or dysuria. No hematemesis. No hemoptysis, no palpitations. He denies heat or cold intolerance. Denies polydipsia or polyuria. Complete 13-system review of systems obtained. Pertinent positives and/or negatives as in the body of history above, otherwise they are noncontributory. PHYSICAL EXAMINATION: VITAL SIGNS: At presentation in the Emergency Room, review of the vital signs shows that he had a fever of 101.0 degrees Fahrenheit at presentation, pulse of 111, respiratory rate of 16, blood pressure 116/64 was as low as 82/43, O2 sats 94% at the time inspired oxygen concentration was not recorded. When I stopped by to see him, his O2 sats were 96% on room air. GENERAL: He is a young, well-built male, normocephalic, atraumatic, talking to me in full sentences without significantly increased respiratory effort at rest. HEAD, EYES, EARS, NOSE AND THROAT: He was anicteric. No conjunctival erythema. Oropharynx was moist. NECK: No gross jugular venous distention, no thyromegaly. Grossly, there were no palpable lymph nodes in the supraclavicular or submandibular lymph node chains. LUNGS: Auscultation of both lung ambriz really unremarkable. He had good bilateral air movement, occasional inspiratory crackles in the bases, but this cleared with coughing. HEART: Heart sounds 1 and 2 are heard. They were regular in rate and rhythm at the time of my evaluation without overt rubs or murmurs. ABDOMEN: Soft, full, bowel sounds are positive, nontender, no palpable hepatosplenomegaly. EXTREMITIES: Without overt digital clubbing or cyanosis. No pedal edema. Pedal pulses are 2+ bilaterally. NEUROLOGIC: Pupils were equal, round, about 4 mm, reactive to light. Extraocular muscle movements were intact. He moves all 4 extremities spontaneously. PSYCHIATRIC: His mood was normal. His affect was appropriate. LABORATORY DATA: From my review are as follows: Admission white cell count 7100 with a hemoglobin of 11.3, hematocrit of 35.1, platelet count 316. No manual differential. D-dimer 1712. Serum sodium 130, potassium 4.2, chloride 96, bicarbonate 24, BUN 17, creatinine 1.3, glucose was 110. Liver function test are within normal limits. CRP elevated at 8.7. Procalcitonin elevated at 6.1 essentially. Urinalysis was negative for nitrites and leukocyte esterase. Coronavirus PCR testing was negative. Two sets of blood cultures are no growth to date. IMAGING STUDIES: I have reviewed his chest x-ray and compared it with one from 05/09 and essentially stable with persistence of right perihilar infiltrate and likely mediastinopathy, no gross pneumothorax, no gross bony fracture. Really in my opinion compared to the x-ray from the was about stable pulmonary infiltrates. He had a V/Q scan that was read as indeterminate. He had bilateral lower extremity Doppler's to complete his VTE workup that just showed enlarged bilateral lymph nodes, likely reactive. No DVT. The last CT angio I see of his chest was done on 04/12/2020. It showed the persistent mediastinal and subcarinal adenopathy and did not seem any change from prior exam according to the report. ASSESSMENT: 1. Recurrent pneumonia, community-acquired. 2. Person under investigation for COVID-19 infection. 3. Febrile illness. 4. Human immunodeficiency virus positive. 5. Abnormal CT chest. 6. Anemia that is microcytic. 7. Elevated serum D-dimers. 8. Mild hyponatremia. PLAN: I do feel that he does have a recurrent pneumonia and perhaps even a postobstructive component at this point. I am bothered about the overall CT scan report. I will be repeating a CT preferably CT angio to better evaluate for venous thromboembolic disease, especially with intermediate probability of V/Q scan. His serum creatinine is good right now. He has no allergies. I will order a CT angiogram, which will also allow me to better evaluate the pulmonary parenchyma. He has reportedly had a bronchoscopy done. I do think he will benefit from Cardiothoracic Surgery evaluation in light of all the adenopathy to make sure that we are not missing an occult lesion and certainly hope to make sure we are not missing a slow growing tumor. Otherwise, continue current therapies, bronchodilators, oxygen as necessary to keep sats greater than or equal to over 90%. We will continue Rocephin and Zithromax and complete a 5-day course of community-acquired pneumonia therapy. I will get an Infectious Disease consult here to see if they would extend the Infectious Disease workup further. I will also get an angiotensin converting enzyme level count as a screen for sarcoidosis and hopefully try and get any data regarding his initial bronchoscopy. He will definitely need outpatient followup. Thank you very much for the consult. He is doing better. He is off of the vasopressor, certainly was septic at presentation and is off supplemental oxygen. We will follow along. We will make further recommendations as picture progresses/becomes clearer. JOB# [id number] [facility] [place]
--- NOTE | 2020-08-15 16:11 | Progress Note ---
Assessment and Plan - Patient Problems (1) Sepsis Current Visit: Yes Status: Acute Plan to address problem: -Presented with tachycardia, hypotension, febrile, CXR with opacities -Antibiotic therapy -Infectious disease consulted, appreciate recommendation -08/14 blood cultures x2 pending -S/p vasopressor support for blood pressure (2) Pneumonia Current Visit: Yes Status: Ruled-out Plan to address problem: -08/14/2020 CXR shows persistent bilateral nodular opacities which is worse on the right lower lung zone -Supplemental oxygen as needed -Pulmonary hygiene -Antibiotic therapy -08/15 CTA chest ordered by pulmonary (3) Suspected COVID-19 virus infection Current Visit: Yes Status: Ruled-out Plan to address problem: -08/14/2020 CXR shows persistent bilateral nodular opacities which is worse on the right lower lung zone -Presented with fever, hypotension, shortness of breath -08/14 COVID-19 PCR negative -Infectious disease consulted, appreciate recommendations -Supplemental oxygen as needed -Anticoagulation per protocol -Pulmonary hygiene -OOB 3 times daily -Vitamin C, zinc, vitamin D discontinued -08/14 antibiotic therapy with azithromycin and Rocephin -Trend inflammatory markers for risk stratification -Droplet/contact precautions discontinued (4) Acute respiratory failure with hypoxia Current Visit: Yes Status: Resolved Plan to address problem: -Supplemental oxygen as needed -Pulmonary hygiene -SPO2 monitoring (5) D-dimer, elevated Current Visit: No Status: Acute Plan to address problem: -08/14 D-dimer 1712 -08/14 bilateral lower extremity duplex ultrasound shows no acute DVT/SVT -08/14 VQ scan shows relative photopenia in the right lower lobe where there is also patchy airspace disease on the accompanying chest x-ray. A ventilation component of this exam was not performed; however, these findings would likely technically fall within the criteria of an intermediate probability on a traditional ventilation/perfusion scan (i.e. triple match study). -Trend D-dimer (6) Hyponatremia Current Visit: Yes Status: Acute Plan to address problem: -Patient with a sodium of 130 -S/p 2.5 normal saline in the emergency department -Trend BMP -Avoid rapid correction -Monitor neuro status -08/15 sodium 135 (7) Metabolic acidosis Current Visit: Yes Status: Acute Plan to address problem: -08/15 CO2 21 and BMP -Discontinue IVF -Trend BMP (8) Hypochloremia Current Visit: Yes Status: Resolved Plan to address problem: -Presented with a chloride of 95.8, 08/15 chloride 103.5 -s/p 2.5 L normal saline in the emergency department -Trend BMP -MIVF, discontinue (9) HIV (human immunodeficiency virus infection) Current Visit: Yes Status: Chronic Plan to address problem: -Continue home antiretroviral therapy -Patient states last CD4 count was normal -Asymptomatic (10) DVT prophylaxis Current Visit: No Status: Acute Plan to address problem: -SCDs to bilateral lower extremities while in bed -Heparin subq History Interval history: This is a 35-year-old male with HIV ("last CD4 count was normal"), pneumonia (x2 in 2019) and bilateral swollen lower extremities with discoloration who presents the emergency department on 08/14 with a 1 day history of shortness of breath, headache, dry cough, chills and subjective fever. Upon arrival to the emergency department patient was found to be febrile, tachycardic and hypotensive which was unresponsive to fluid resuscitation and a CVL was placed and he was started on Levophed for blood pressure support. Patient was found to have elevated D- dimer (1712), hyponatremia 130, hypochloremia as 95.8, and his chest x-ray showed persistent bilateral nodular opacities which is worse on the right lateral lower lung zone. Patient was admitted to the hospital service has a COVID-19 PUI and ID and CCM was consulted. Patient has been weaned off Levophed and his COVID-19 PCR was negative. No acute events reported overnight and the patient has no complaints this morning. Has hyponatremia has improved, hypochl oremia has resolved and he has slight metabolic acidosis on BMP. Patient can be downgraded since he is off vasopressor support. 08/15: COVID-19 PCR negative Hospitalist Physical - Constitutional Vitals: Temp Pulse Resp BP Pulse Ox 97.9 F 79 16 101/64 96 08/15/20 11:30 08/15/20 14:32 08/15/20 14:32 08/15/20 14:32 08/15/20 14:32 General appearance: Present: no acute distress - EENT Eyes: Present: PERRL, EOM intact ENT: hearing intact, clear oral mucosa - Neck Neck: Present: supple, normal ROM - Respiratory Respiratory effort: normal Respiratory: bilateral: CTA - Cardiovascular Rhythm: regular Heart Sounds: Present: S1 & S2. Absent: systolic murmur, diastolic murmur - Extremities Extremities: no ischemia, pulses intact, pulses symmetrical, normal temperature, Full ROM Extremity abnormal: edema - Peripheral Assessment Bilateral Lower Extremity Edema Type: Non-pitting Capillary Refill: < 3 seconds Skin Temperature: Warm Peripheral Pulses: within normal limits - Abdominal General gastrointestinal: soft, non-tender, normal bowel sounds - Integumentary Integumentary: Present: warm, dry. Absent: clear (Hyperpigmentation to bilateral lower extremities) - Psychiatric Psychiatric: appropriate mood/affect, memory intact, cooperative - Neurologic Neurologic: CNII-XII intact, no focal deficits, moves all extremities - Allied Health Allied health notes reviewed: nursing Results - Labs CBC & Chem 7: 08/15/20 04:52 08/15/20 04:52 Labs: Laboratory Last Values WBC 4.1 K/mm3 (4.5-11.0) L 08/15/20 04:52 RBC 3.83 M/mm3 (3.65-5.03) 08/15/20 04:52 Hgb 10.1 gm/dl (11.8-15.2) L 08/15/20 04:52 Hct 31.2 % (35.5-45.6) L 08/15/20 04:52 MCV 82 fl (84-94) L 08/15/20 04:52 MCH 26 pg (28-32) L 08/15/20 04:52 MCHC 32 % (32-34) 08/15/20 04:52 RDW 17.3 % (13.2-15.2) H 08/15/20 04:52 Plt Count 235 K/mm3 (140-440) 08/15/20 04:52 Lymph % (Auto) 35.9 % (13.4-35.0) H 08/15/20 04:52 Wharton % (Auto) 8.4 % (0.0-7.3) H 08/15/20 04:52 Eos % (Auto) 0.0 % (0.0-4.3) 08/15/20 04:52 Baso % (Auto) 0.3 % (0.0-1.8) 08/15/20 04:52 Lymph # (Auto) 1.5 K/mm3 (1.2-5.4) 08/15/20 04:52 Wharton # (Auto) 0.3 K/mm3 (0.0-0.8) 08/15/20 04:52 Eos # (Auto) 0.0 K/mm3 (0.0-0.4) 08/15/20 04:52 Baso # (Auto) 0.0 K/mm3 (0.0-0.1) 08/15/20 04:52 Seg Neutrophils % 55.4 % (40.0-70.0) 08/15/20 04:52 Seg Neutrophils # 2.3 K/mm3 (1.8-7.7) 08/15/20 04:52 PT 15.1 Sec. (12.2-14.9) H 08/14/20 00:41 INR 1.21 (0.87-1.13) H 08/14/20 00:41 D-Dimer 1712.29 ng/mlDDU (0-234) H 08/14/20 06:51 VBG pH 7.413 (7.320-7.420) 08/14/20 00:41 Sodium 135 mmol/L (137-145) L 08/15/20 04:52 Potassium 4.3 mmol/L (3.6-5.0) 08/15/20 04:52 Chloride 103.5 mmol/L (98-107) 08/15/20 04:52 Carbon Dioxide 21 mmol/L (22-30) L 08/15/20 04:52 Anion Gap 15 mmol/L 08/15/20 04:52 BUN 11 mg/dL (9-20) 08/15/20 04:52 Creatinine 0.8 mg/dL (0.8-1.3) 08/15/20 04:52 Estimated GFR > 60 ml/min 08/15/20 04:52 BUN/Creatinine Ratio 14 % 08/15/20 04:52 Glucose 104 mg/dL (75-100) H 08/15/20 04:52 Lactic Acid 0.70 mmol/L (0.7-2.0) 08/14/20 03:42 Calcium 8.5 mg/dL (8.4-10.2) 08/15/20 04:52 Ferritin 273.7 ng/mL (30.0-300.0) 08/14/20 06:51 Total Bilirubin 0.50 mg/dL (0.1-1.2) 08/14/20 00:41 AST 15 units/L (5-40) 08/14/20 00:41 ALT 17 units/L (7-56) 08/14/20 00:41 Alkaline Phosphatase 69 units/L (35-129) 08/14/20 00:41 Lactate Dehydrogenase 164 units/L (91-180) 08/14/20 06:51 C-Reactive Protein 8.70 mg/dL (0.00-1.30) H 08/14/20 06:51 Total Protein 8.5 g/dL (6.3-8.2) H 08/14/20 00:41 Albumin 3.8 g/dL (3.9-5) L 08/14/20 00:41 Albumin/Globulin Ratio 0.8 % 08/14/20 00:41 Procalcitonin 6.09 ng/mL (<0.15) 08/14/20 06:51 Urine Color Yellow (Yellow) 08/14/20 03:45 Urine Turbidity Clear (Clear) 08/14/20 03:45 Urine pH 6.0 (5.0-7.0) 08/14/20 03:45 Ur Specific [place]ow 1.009 (1.003-1.030) 08/14/20 03:45 Urine Protein <15 mg/dl mg/dL (Negative) 08/14/20 03:45 Urine Glucose (UA) Neg mg/dL (Negative) 08/14/20 03:45 Urine Ketones Neg mg/dL (Negative) 08/14/20 03:45 Urine Blood Neg (Negative) 08/14/20 03:45 Urine Nitrite Neg (Negative) 08/14/20 03:45 Urine Bilirubin Neg (Negative) 08/14/20 03:45 Urine Urobilinogen < 2.0 mg/dL (<2.0) 08/14/20 03:45 Ur Leukocyte Esterase Neg (Negative) 08/14/20 03:45 Urine WBC (Auto) 1.0 /HPF (0.0-6.0) 08/14/20 03:45 Urine RBC (Auto) 0.0 /HPF (0.0-6.0) 08/14/20 03:45 Urine Mucus Few /HPF 08/14/20 03:45 Coronavirus (PCR) Negative (Negative) 08/14/20 09:03 Microbiology: Microbiology 08/14/20 00:36 Peripheral/Venous Blood Culture - Preliminary NO GROWTH AFTER 24 HOURS 08/14/20 00:41 Peripheral/Venous Blood Culture - Preliminary NO GROWTH AFTER 24 HOURS Thakur/IV: IV Catheter Type [Left Femoral Triple Lumen Cath ] IV Catheter Type [Right Peripheral IV Forearm] Active Medications - Current Medications Current Medications: Generic Name Dose Route Start Last Admin Trade Name Freq PRN Reason Stop Dose Admin Acetaminophen 650 mg 08/14/20 07:54 Acetaminophen 325 Mg Tab PO Q6H PRN Pain MILD(1-3)/Fever >100.5/LIU Albuterol 2.5 mg 08/14/20 07:54 Albuterol 2.5 Mg/3 Ml Nebu IH Q3HRT PRN Shortness Of Breath Famotidine 20 mg 08/15/20 10:00 08/15/20 10:22 Famotidine 20 Mg Tab PO 20 mg BID CEFERINO Administration Heparin Sodium (Porcine) 5,000 unit 08/14/20 10:00 08/15/20 10:21 Heparin 5,000 Unit/1 Ml Vial SUB-Q 5,000 unit Q12HR CEFERINO Administration Azithromycin 500 mg/ Sodium 250 mls @ 250 mls/hr 08/14/20 22:00 08/15/20 06:15 Chloride IV 250 mls/hr Q24H CEFERINO Administration Protocol Ceftriaxone Sodium 2 gm in 100 mls @ 200 mls/hr 08/14/20 22:00 08/14/20 22:25 Rocephin/Ns 2 Gm/100 Ml IV 200 mls/hr Q24H CEFERINO Administration Protocol Magnesium Hydroxide 30 ml 08/14/20 07:54 Magnesium Hydroxide (Mom) Oral Liqd Udc PO Q4H PRN Constipation Methylprednisolone Sodium Succinate 40 mg 08/15/20 14:00 08/15/20 13:33 Methylprednisolone Sod Succinate 40 Mg/1 Ml Inj IV 40 mg Q8HR CEFERINO Administration Morphine Sulfate 2 mg 08/14/20 07:54 Morphine 2 Mg/1 Ml Inj IV Q4H PRN Pain, Moderate (4-6) Morphine Sulfate 4 mg 08/14/20 07:54 Morphine 4 Mg/1 Ml Inj IV Q4H PRN Pain , Severe (7-10) Naloxone HCl 0.1 mg 08/14/20 07:54 Naloxone 0.4 Mg/1 Ml Inj IV Q2MIN PRN Res Rate </= 8 or 02 SAT < 92% Ondansetron HCl 4 mg 08/14/20 07:54 Ondansetron 4 Mg/2 Ml Inj IV Q8H PRN Nausea And Vomiting Sodium Chloride 10 ml 08/14/20 10:00 08/15/20 13:34 Sodium Chloride 0.9% 10 Ml Flush Syringe IV 10 ml BID CEFERINO Administration Sodium Chloride 10 ml 08/14/20 07:54 Sodium Chloride 0.9% 10 Ml Flush Syringe IV PRN PRN LINE FLUSH Nutrition/Malnutrition Assess - Dietary Evaluation Nutrition/Malnutrition Findings: Nutrition Notes Start: 08/14/20 13:07 Freq: Status: Active Protocol: Document 08/15/20 14:17 CW (Rec: 08/15/20 14:27 CW [email or web address]) Co-Sign 08/15/20 14:17 NHALL Nutrition Notes Initial or Follow up Brief Note Current Diagnosis Acute Kidney Injury,Sepsis Other Pertinent Diagnosis anemia, acute RF w/ hypoxia, HIV, pneumonia Current Diet Regular diet Subjective/Other Information FU for full assessment/ MD MST screening. Pt remains on hold in ED. Nutrition Intervention Follow-Up By: 08/16/20 Additional Comments FU for full assessment/ MST screening
--- NOTE | 2020-08-15 16:22 | Cat Scan Report ---
CTA CHEST WITH IV CONTRAST INDICATION: Mediastinopathy; persistent pneumonia; VTE. TECHNIQUE: Axial CT images were obtained through the chest after injection of IV contrast. 3 plane MIP reconstru ctions were produced. All CT scans at this location are performed using CT dose reduction for ALARA b y means of automated exposure control. COMPARISON: CTA 04/12/2020 FINDINGS: Pulmonary Arteries: No pulmonary emboli. Thoracic Aorta: No acute abnormality. Heart: Stable. Lungs: There is persistent masslike consolidation in the right hilum/perihilar region of narrowing in volving the right middle and upper lobes. This encases the airways, which are attenuated. Patchy pred ominantly peribronchovascular opacities are slightly worsened, particularly within the right lung bas e. Pleura: No pleural effusion. No pneumothorax. Lymph Nodes: Confluent mediastinal adenopathy and confluent retroperitoneal adenopathy does not appea r significantly changed. Additional Findings: None. Upper Abdomen: No acute findings. There are small splenic hypodensities which appear similar to the p rior. Some of these are slightly increased in size. Skeletal Structures: No significant osseous abnormality. IMPRESSION: 1. No CT evidence for pulmonary embolism. 2. Persistent masslike consolidation in the right hilum/perihilar region with associated adenopathy i n the mediastinum and retroperitoneum that is confluent. While these findings could be neoplastic, gi geeta the patient's age, organizing pneumonia should be considered. Is this patient immunocompromised A typical infectious agents should be considered. 3. Patchy peribronchovascular airspace disease is slightly worsened, greatest in the right lower lobe . This could be at least in part post obstructive infection. 4. There are small splenic hypodensities, some of these have slightly increased since the prior. I ca nnot exclude infection here. Signer Name: Nino Pierre MD Signed: 08/15/2020 4:18 PM Workstation Name: [id number]
--- NOTE | 2020-08-15 18:32 | Consultation ---
History of Present Illness - Reason for Consult Consult date: 08/15/20 - History of Present Illness 35-year-old man past medical history HIV, HSV pneumonia, lower extremity discoloration presented to the hospital complaining of shortness of breath, headache, cough, fever. He notes this began approximate 1 day prior to admission. Admission he was found to be febrile, septic nonresponsive to fluids and needing pressor support. He was admitted to the ICU. Covid testing was negative. Regarding his HIV he follows with me in the clinic. He is currently compliant with his Biktarvy. At last check his viral load was 88 copies (in April) and CD4 count was 241 with a 16% which was improved. Febrile admission to 101 with a white count of 4.1. He is currently receiving ceftriaxone and azithromycin. He is currently on methylprednisolone as well. Covid testing negative. Normal renal function, procalcitonin is 6.09. Blood cultures currently pending. Imaging personally reviewed: Chest CTA: No evidence of PE. Masslike consolidation in the right hilum with associated adenopathy in the mediastinum and retroperitoneum. Concern for organizing pneumonia patchy airspace disease slightly worsened Review of systems: Deferred due to respiratory status. Past History Past Medical History: HIV/AIDS, other (PNA (2019)) Past Surgical History: No surgical history Social history: single, Lives alone, full code. denies: smoking, alcohol abuse, prescription drug abuse, IV drug use Family history: no significant family history Medications and Allergies Allergies Allergy/AdvReac Type Severity Reaction Status Date / Time No Known Allergies Allergy Verified 12/02/19 14:17 Home Medications Medication Instructions Recorded Confirmed Last Taken Type Ipratropium/Albuterol Sulfate 1 ampul IH Q6HR #120 ampul.neb 02/24/20 Unknown Rx [DUONEB *Not for PRN Use*] Atovaquone [Mepron] 750 mg PO BID 25 Days ml 02/25/20 Unknown Rx predniSONE [Deltasone] 20 mg PO QDAY #5 tablet 02/25/20 Unknown Rx Famotidine [Pepcid] 40 mg PO QHS #5 tablet 02/26/20 Unknown Rx Prednisone [predniSONE 10 mg 10 mg PO .TAPER #1 tab.ds.pk 02/26/20 Unknown Rx (6-Day Pack, 21 Tabs)] diphenhydrAMINE [Benadryl CAP] 50 mg PO Q8HR PRN #14 capsule 02/26/20 Unknown Rx levoFLOXacin [Levaquin] 750 mg PO QDAY 5 Days #5 tablet 02/26/20 Unknown Rx Azithromycin [Zithromax TAB] 500 mg PO QDAY 3 Days #3 tablet 03/14/20 Unknown Rx Dexamethasone [Taperdex] 1.5 mg PO DAILY 7 Days #1 tab.ds.pk 03/14/20 Unknown Rx Doxycycline Hyclate 100 mg PO BID 10 Days #20 tablet.dr 03/14/20 Unknown Rx Amoxicillin/Potassium Clav 1 each PO BID 10 Days #20 tablet 05/09/20 Unknown Rx [Augmentin 875-125 Tablet] Azithromycin [Zithromax Z-GARLAND] 0 mg PO DAILY 5 Days #6 tab 05/09/20 Unknown Rx Promethazine HCl [Promethazine TAB] 12.5 mg PO [id number] PRN #12 tab 05/09/20 Unknown Rx Active Meds: Active Medications Acetaminophen (Acetaminophen 325 Mg Tab) 650 mg PO Q6H PRN PRN Reason: Pain MILD(1-3)/Fever >100.5/LIU Albuterol (Albuterol 2.5 Mg/3 Ml Nebu) 2.5 mg IH Q3HRT PRN PRN Reason: Shortness Of Breath Famotidine (Famotidine 20 Mg Tab) 20 mg PO BID [facility] Last Admin: 08/15/20 10:22 Dose: 20 mg Documented by: Heparin Sodium (Porcine) (Heparin 5,000 Unit/1 Ml Vial) 5,000 unit SUB-Q Q12HR CEFERINO Last Admin: 08/15/20 10:21 Dose: 5,000 unit Documented by: Azithromycin 500 mg/ Sodium (Chloride) 250 mls @ 250 mls/hr IV Q24H CEFERINO; Protocol Last Admin: 08/15/20 06:15 Dose: 250 mls/hr Documented by: Ceftriaxone Sodium (Rocephin/Ns 2 Gm/100 Ml) 2 gm in 100 mls @ 200 mls/hr IV Q24H CEFERINO; Protocol Last Admin: 08/14/20 22:25 Dose: 200 mls/hr Documented by: Magnesium Hydroxide (Magnesium Hydroxide (Mom) Oral Liqd Udc) 30 ml PO Q4H PRN PRN Reason: Constipation Methylprednisolone Sodium Succinate (Methylprednisolone Sod Succinate 40 Mg/1 Ml Inj) 40 mg IV Q8HR [facility] Last Admin: 08/15/20 13:33 Dose: 40 mg Documented by: Morphine Sulfate (Morphine 2 Mg/1 Ml Inj) 2 mg IV Q4H PRN PRN Reason: Pain, Moderate (4-6) Morphine Sulfate (Morphine 4 Mg/1 Ml Inj) 4 mg IV Q4H PRN PRN Reason: Pain , Severe (7-10) Naloxone HCl (Naloxone 0.4 Mg/1 Ml Inj) 0.1 mg IV Q2MIN PRN PRN Reason: Res Rate </= 8 or 02 SAT < 92% Ondansetron HCl (Ondansetron 4 Mg/2 Ml Inj) 4 mg IV Q8H PRN PRN Reason: Nausea And Vomiting Sodium Chloride (Sodium Chloride 0.9% 10 Ml Flush Syringe) 10 ml IV BID [facility] Last Admin: 08/15/20 13:34 Dose: 10 ml Documented by: Sodium Chloride (Sodium Chloride 0.9% 10 Ml Flush Syringe) 10 ml IV PRN PRN PRN Reason: LINE FLUSH Physical Examination - Physical Exam Narrative exam: Physical Exam: Constitutional: Alert, cooperative. No acute distress Head, Ears, Nose: Normocephalic, atraumatic. External ears, nose normal Eyes: Conjunctivae/corneas clear. No icterus. No ptosis. Neck: Supple, no meningeal signs Oral: dentition fair, no thrush Cardiovascular: S1, S2 normal. Respiratory: Good air entry, clear to auscultation bilaterally GI: Soft, non-tender; bowel sounds normal. No peritoneal signs. Musculoskeletal: No pedal edema, no cyanosis. Skin: No rash or abscess Hem/Lymphatic: No palpable cervical or supraclavicular nodes. No lymphangitis Psych: Mood ok. Affect normal Neurological: Awake, alert, oriented. No gross abnormality - Constitutional Vitals: Vital Signs Temp Pulse Resp BP Pulse Ox 97.9 F 79 16 101/64 96 08/15/20 11:30 08/15/20 14:32 08/15/20 14:32 08/15/20 14:32 08/15/20 14:32 Temperature -Last 24 Hours Temperature 97.9 F Temperature 98.3 F Results - Labs CBC & Chem 7: 08/15/20 04:52 08/15/20 04:52 Labs: Abnormal lab results 08/15/20 08/15/20 Range/Units 04:52 04:52 WBC 4.1 L (4.5-11.0) K/mm3 Hgb 10.1 L (11.8-15.2) gm/dl Hct 31.2 L (35.5-45.6) % MCV 82 L (84-94) fl MCH 26 L (28-32) pg RDW 17.3 H (13.2-15.2) % Lymph % (Auto) 35.9 H (13.4-35.0) % [place] % (Auto) 8.4 H (0.0-7.3) % Sodium 135 L (137-145) mmol/L Carbon Dioxide 21 L (22-30) mmol/L Glucose 104 H (75-100) mg/dL Assessment and Plan Cultures: Blood culture 08/14/2020 A/P: 35-year-old man past medical history HIV on Biktarvy, PJP admitted to the hospital with pneumonia #Right-sided organizing pneumonia: Patient with elevated procalcitonin, will treat as bacterial for now. However since it is fairly persistent from his last admission may need to consider obtaining bronchoscopy to rule out other etiologies. #HIV: Well-controlled on the Biktarvy. Will restart with in-house options with dolutegravir, and emtricitabine, tenofovir. Most recent CD4 count greater than 200 with a 16%. Next less likely, however not impossible for him to have infections, and in immunosuppressed patients. #Acute sepsis: Present with fevers and leukopenia and tachycardia. Likely secondary to pneumonia. Recs: -Continue ceftriaxone azithromycin for now -Trend procalcitonin every other day -Ordered CRP -Ordered viral load and CD4 count -Given chronicity of organizing pneumonia, may need bronch to rule out other causes. -Started dolutegravir, emtricitabine, tenofovir in place of home Biktarvy. Thank you for the consult, we will continue to follow. MD [facility] O: [phone] F: [phone]
[2020-08-16] MEDS: FAMOTIDINE 20 MG TAB PO SCH ×3 (01:15→21:44)
[2020-08-16] MEDS: HEPARIN 5,000 UNIT/1 ML VIAL SUB-Q SCH ×3 (01:15→21:44)
[2020-08-16] MEDS: methylPREDNISolone Sod Succinate 40 MG/1 ML INJ IV SCH (01:16)
[2020-08-16] MEDS: cefTRIAXone/NS 2 GM/100 ML 2 GM/100 ML BAG IV SCH ×2 (01:17→21:44)
[2020-08-16] MEDS: AZITHROMYCIN 500 MG in SODIUM CHLORIDE 0.9% 250ML 250 ML IV SCH (01:56)
[2020-08-16 05:02] LABS: C-Reactive Protein 5.8 mg/dL (0.00-1.30)
--- NOTE | 2020-08-16 11:28 | Progress Note ---
Assessment and Plan - Patient Problems (1) Sepsis Current Visit: Yes Status: Acute Plan to address problem: -Presented with tachycardia, hypotension, febrile, CXR with opacities -Antibiotic therapy -Infectious disease consulted, appreciate recommendation -08/14 blood cultures x2 no growth after 48 hours -/ urine culture with no growth after 48 hours -S/p vasopressor support for blood pressure (2) Pneumonia Current Visit: Yes Status: Ruled-out Plan to address problem: -08/14/2020 CXR shows persistent bilateral nodular opacities which is worse on the right lower lung zone -Supplemental oxygen as needed -Pulmonary hygiene -Antibiotic therapy -08/15 CTA chest ordered by pulmonary which shows consolidation (3) Acute respiratory failure with hypoxia Current Visit: Yes Status: Resolved Plan to address problem: -Supplemental oxygen as needed -Pulmonary hygiene -SPO2 monitoring (4) D-dimer, elevated Current Visit: No Status: Acute Plan to address problem: -08/14 D-dimer 1712 -08/14 bilateral lower extremity duplex ultrasound shows no acute DVT/SVT -08/14 VQ scan shows relative photopenia in the right lower lobe where there is also patchy airspace disease on the accompanying chest x-ray. A ventilation component of this exam was not performed; however, these findings would likely technically fall within the criteria of an intermediate probability on a traditional ventilation/perfusion scan (i.e. triple match study). -Trend D-dimer (5) Hyponatremia Current Visit: Yes Status: Acute Plan to address problem: -Patient with a sodium of 130 -S/p 2.5 normal saline in the emergency department -Trend BMP -Avoid rapid correction -Monitor neuro status -08/15 sodium 135 (6) Metabolic acidosis Current Visit: Yes Status: Acute Plan to address problem: -08/15 CO2 21 and BMP -Discontinue IVF -Trend BMP (7) Hypochloremia Current Visit: Yes Status: Resolved Plan to address problem: -Presented with a chloride of 95.8, 08/15 chloride 103.5 -s/p 2.5 L normal saline in the emergency department -Trend BMP -MIVF, discontinue (8) HIV (human immunodeficiency virus infection) Current Visit: Yes Status: Chronic Plan to address problem: -Continue home antiretroviral therapy -Patient states last CD4 count was normal -Asymptomatic (9) DVT prophylaxis Current Visit: No Status: Acute Plan to address problem: -SCDs to bilateral lower extremities while in bed -Heparin subq History Interval history: This is a 35-year-old male with HIV ("last CD4 count was normal"), pneumonia (x2 in 2019) and bilateral swollen lower extremities with discoloration who presents the emergency department on 08/14 with a 1 day history of shortness of breath, hea dache, dry cough, chills and subjective fever. Upon arrival to the emergency department patient was found to be febrile, tachycardic and hypotensive which was unresponsive to fluid resuscitation and a CVL was placed and he was started on Levophed for blood pressure support. Patient was found to have elevated D- dimer (1712), hyponatremia 130, hypochloremia as 95.8, and his chest x-ray showed persistent bilateral nodular opacities which is worse on the right lateral lower lung zone. Patient was admitted to the hospital service has a COVID-19 PUI and ID and CCM was consulted. No acute events reported overnight. Patient's right lower extremity is slightly larger than his left however it is the same size as it was on admission. Patient remains on room air. His CTA chest shows consolidation. He is being downgraded today. We will await pulm input regarding discharge. 08/15: COVID-19 PCR negative 08/16: Patient has been weaned off Levophed, No acute events reported overnight and the patient has no complaints this morning. His hyponatremia has improved, hypochloremia has resolved and he has slight metabolic acidosis on BMP. Patient can be downgraded since he is off vasopressor support. CTA chest, restarted Biktarvcharity Hospitalist Physical - Constitutional Vitals: Temp Pulse Resp BP Pulse Ox 97.4 F L 51 L 16 100/63 95 08/16/20 10:07 08/16/20 07:13 08/16/20 07:13 08/16/20 07:13 08/16/20 07:13 General appearance: Present: no acute distress - EENT Eyes: Present: PERRL, EOM intact ENT: hearing intact, clear oral mucosa - Neck Neck: Present: normal ROM - Respiratory Respiratory effort: normal Respiratory: bilateral: CTA - Cardiovascular Rhythm: regular Heart Sounds: Present: S1 & S2. Absent: systolic murmur, diastolic murmur - Extremities Extremities: no ischemia, pulses intact, pulses symmetrical, normal temperature, Full ROM - Peripheral Assessment Bilateral Lower Extremity Edema Type: Non-pitting Skin Temperature: Warm Peripheral Pulses: within normal limits - Abdominal General gastrointestinal: soft, non-tender, non-distended, normal bowel sounds - Integumentary Integumentary: Present: warm, dry - Psychiatric Psychiatric: appropriate mood/affect, cooperative - Neurologic Neurologic: CNII-XII intact, no focal deficits, moves all extremities - Allied Health Allied health notes reviewed: nursing Results - Labs CBC & Chem 7: 08/15/20 04:52 08/15/20 04:52 Labs: Laboratory Last Values WBC 4.1 K/mm3 (4.5-11.0) L 08/15/20 04:52 RBC 3.83 M/mm3 (3.65-5.03) 08/15/20 04:52 Hgb 10.1 gm/dl (11.8-15.2) L 08/15/20 04:52 Hct 31.2 % (35.5-45.6) L 08/15/20 04:52 MCV 82 fl (84-94) L 08/15/20 04:52 MCH 26 pg (28-32) L 08/15/20 04:52 MCHC 32 % (32-34) 08/15/20 04:52 RDW 17.3 % (13.2-15.2) H 08/15/20 04:52 Plt Count 235 K/mm3 (140-440) 08/15/20 04:52 Lymph % (Auto) 35.9 % (13.4-35.0) H 08/15/20 04:52 [place] % (Auto) 8.4 % (0.0-7.3) H 08/15/20 04:52 Eos % (Auto) 0.0 % (0.0-4.3) 08/15/20 04:52 Baso % (Auto) 0.3 % (0.0-1.8) 08/15/20 04:52 Lymph # (Auto) 1.5 K/mm3 (1.2-5.4) 08/15/20 04:52 [place] # (Auto) 0.3 K/mm3 (0.0-0.8) 08/15/20 04:52 Eos # (Auto) 0.0 K/mm3 (0.0-0.4) 08/15/20 04:52 Baso # (Auto) 0.0 K/mm3 (0.0-0.1) 08/15/20 04:52 Seg Neutrophils % 55.4 % (40.0-70.0) 08/15/20 04:52 Seg Neutrophils # 2.3 K/mm3 (1.8-7.7) 08/15/20 04:52 PT 15.1 Sec. (12.2-14.9) H 08/14/20 00:41 INR 1.21 (0.87-1.13) H 08/14/20 00:41 D-Dimer 991.67 ng/mlDDU (0-234) H 08/16/20 04:30 VBG pH 7.413 (7.320-7.420) 08/14/20 00:41 Sodium 135 mmol/L (137-145) L 08/15/20 04:52 Potassium 4.3 mmol/L (3.6-5.0) 08/15/20 04:52 Chloride 103.5 mmol/L (98-107) 08/15/20 04:52 Carbon Dioxide 21 mmol/L (22-30) L 08/15/20 04:52 Anion Gap 15 mmol/L 08/15/20 04:52 BUN 11 mg/dL (9-20) 08/15/20 04:52 Creatinine 0.8 mg/dL (0.8-1.3) 08/15/20 04:52 Estimated GFR > 60 ml/min 08/15/20 04:52 BUN/Creatinine Ratio 14 % 08/15/20 04:52 Glucose 104 mg/dL (75-100) H 08/15/20 04:52 Lactic Acid 0.70 mmol/L (0.7-2.0) 08/14/20 03:42 Calcium 8.5 mg/dL (8.4-10.2) 08/15/20 04:52 Ferritin 356.1 ng/mL (30.0-300.0) H 08/16/20 04:30 Total Bilirubin 0.50 mg/dL (0.1-1.2) 08/14/20 00:41 AST 15 units/L (5-40) 08/14/20 00:41 ALT 17 units/L (7-56) 08/14/20 00:41 Alkaline Phosphatase 69 units/L (35-129) 08/14/20 00:41 Lactate Dehydrogenase 158 units/L (91-180) 08/16/20 04:30 C-Reactive Protein 5.80 mg/dL (0.00-1.30) H 08/16/20 04:30 Total Protein 8.5 g/dL (6.3-8.2) H 08/14/20 00:41 Albumin 3.8 g/dL (3.9-5) L 08/14/20 00:41 Albumin/Globulin Ratio 0.8 % 08/14/20 00:41 Procalcitonin 6.09 ng/mL (<0.15) 08/14/20 06:51 Urine Color Yellow (Yellow) 08/14/20 03:45 Urine Turbidity Clear (Clear) 08/14/20 03:45 Urine pH 6.0 (5.0-7.0) 08/14/20 03:45 Ur Specific [place] 1.009 (1.003-1.030) 08/14/20 03:45 Urine Protein <15 mg/dl mg/dL (Negative) 08/14/20 03:45 Urine Glucose (UA) Neg mg/dL (Negative) 08/14/20 03:45 Urine Ketones Neg mg/dL (Negative) 08/14/20 03:45 Urine Blood Neg (Negative) 08/14/20 03:45 Urine Nitrite Neg (Negative) 08/14/20 03:45 Urine Bilirubin Neg (Negative) 08/14/20 03:45 Urine Urobilinogen < 2.0 mg/dL (<2.0) 08/14/20 03:45 Ur Leukocyte Esterase Neg (Negative) 08/14/20 03:45 Urine WBC (Auto) 1.0 /HPF (0.0-6.0) 08/14/20 03:45 Urine RBC (Auto) 0.0 /HPF (0.0-6.0) 08/14/20 03:45 Urine Mucus Few /HPF 08/14/20 03:45 Coronavirus (PCR) Negative (Negative) 08/14/20 09:03 Microbiology: Microbiology 08/14/20 03:45 Urine,Clean Catch Urine Culture - Final NO GROWTH AFTER 48 HOURS 08/14/20 00:36 Peripheral/Venous Blood Culture - Preliminary NO GROWTH AFTER 48 HOURS 08/14/20 00:41 Peripheral/Venous Blood Culture - Preliminary NO GROWTH AFTER 48 HOURS Thakur/IV: IV Catheter Type [Left Femoral Triple Lumen Cath ] IV Catheter Type [Right Peripheral IV Forearm] Active Medications - Current Medications Current Medications: Generic Name Dose Route Start Last Admin Trade Name Freq PRN Reason Stop Dose Admin Acetaminophen 650 mg 08/14/20 07:54 Acetaminophen 325 Mg Tab PO Q6H PRN Pain MILD(1-3)/Fever >100.5/LIU Albuterol 2.5 mg 08/14/20 07:54 Albuterol 2.5 Mg/3 Ml Nebu IH Q3HRT PRN Shortness Of Breath Azithromycin 500 mg 08/16/20 22:00 Azithromycin 250 Mg Tab PO Q24H CEFERINO Emtricitabine 200 mg 08/16/20 10:00 Emtricitabine 200 Mg Cap PO QDAY CEFERINO Famotidine 20 mg 08/15/20 10:00 08/16/20 01:15 Famotidine 20 Mg Tab PO 20 mg BID CEFERINO Administration Heparin Sodium (Porcine) 5,000 unit 08/14/20 10:00 08/16/20 01:15 Heparin 5,000 Unit/1 Ml Vial SUB-Q 5,000 unit Q12HR CEFERINO Administration Ceftriaxone Sodium 2 gm in 100 mls @ 200 mls/hr 08/14/20 22:00 08/16/20 01:57 Rocephin/Ns 2 Gm/100 Ml IV Infused Q24H CEFERINO Infusion Protocol Magnesium Hydroxide 30 ml 08/14/20 07:54 Magnesium Hydroxide (Mom) Oral Liqd Udc PO Q4H PRN Constipation Morphine Sulfate 2 mg 08/14/20 07:54 Morphine 2 Mg/1 Ml Inj IV Q4H PRN Pain, Moderate (4-6) Morphine Sulfate 4 mg 08/14/20 07:54 Morphine 4 Mg/1 Ml Inj IV Q4H PRN Pain , Severe (7-10) Naloxone HCl 0.1 mg 08/14/20 07:54 Naloxone 0.4 Mg/1 Ml Inj IV Q2MIN PRN Res Rate </= 8 or 02 SAT < 92% Ondansetron HCl 4 mg 08/14/20 07:54 Ondansetron 4 Mg/2 Ml Inj IV Q8H PRN Nausea And Vomiting Sodium Chloride 10 ml 08/14/20 10:00 08/16/20 01:17 Sodium Chloride 0.9% 10 Ml Flush Syringe IV 10 ml BID CEFERINO Administration Sodium Chloride 10 ml 08/14/20 07:54 Sodium Chloride 0.9% 10 Ml Flush Syringe IV PRN PRN LINE FLUSH Tenofovir Disoproxil Fumarate 300 mg 08/16/20 10:00 Tenofovir 300 Mg Tab PO QDAY CEFERINO Nutrition/Malnutrition Assess - Dietary Evaluation Nutrition/Malnutrition Findings: Nutrition Notes Start: 08/14/20 13:07 Freq: Status: Active Protocol: Document 08/15/20 14:17 CW (Rec: 08/15/20 14:27 CW [email or web address]) Co-Sign 08/15/20 14:17 NHALL Nutrition Notes Initial or Follow up Brief Note Current Diagnosis Acute Kidney Injury,Sepsis Other Pertinent Diagnosis anemia, acute RF w/ hypoxia, HIV, pneumonia Current Diet Regular diet Subjective/Other Information FU for full assessment/ MD MST screening. Pt remains on hold in ED. Nutrition Intervention Follow-Up By: 08/16/20 Additional Comments FU for full assessment/ MST screening
[2020-08-16] MEDS: DOLUTEGRAVIR 50 MG TAB PO SCH (12:08)
[2020-08-16] MEDS: EMTRICITABINE 200 MG CAP PO SCH (12:08)
[2020-08-16] MEDS: TENOFOVIR 300 MG TAB PO SCH (12:09)
--- NOTE | 2020-08-16 12:37 | Progress Note ---
Assessment and Plan Cultures: Blood culture 08/14/2020 A/P: 35-year-old man past medical history HIV on Biktarvy, PJP admitted to the hospital with pneumonia #Right-sided organizing pneumonia: Patient with elevated procalcitonin, will treat as bacterial for now. However since it is fairly persistent from his last admission may need to consider obtaining bronchoscopy to rule out other etiologies. #HIV: Well-controlled on the Biktarvy. Will restart with in-house options with dolutegravir, and emtricitabine, tenofovir. Most recent CD4 count greater than 200 with a 16%. Next less likely, however not impossible for him to have infections, and in immunosuppressed patients. #Acute sepsis: Present with fevers and leukopenia and tachycardia. Likely se condary to pneumonia. Recs: -Continue ceftriaxone azithromycin for now, complete 5 days and 3 days respectively. If discharging prior to completion of this regimen would send with cefdinir 300mg q12h to complete the 5 days. -Trend procalcitonin every other day. Ordered for tomorrow. -f/u viral load and CD4 count -Given chronicity of organizing pneumonia, may need bronch to rule out other causes. -Started dolutegravir, emtricitabine, tenofovir in place of home Biktarvy. Thank you for the consult, we will continue to follow. Moses Garcia MD [facility] ([facility] O: [phone] F: [phone] Subjective Date of service: 08/16/20 Interval history: Afebrile over last 24 hours white count slightly low at 4.1. Objective - Exam Narrative Exam: Physical Exam: Constitutional: Alert, cooperative. No acute distress Head, Ears, Nose: Normocephalic, atraumatic. Eyes: Conjunctivae/corneas clear. No icterus. No ptosis. Neck: Supple, no meningeal signs Oral: dentition fair, no thrush Cardiovascular: S1, S2 normal. Respiratory: Good air entry, clear to auscultation bilaterally GI: Soft, non-tender; bowel sounds normal. No peritoneal signs. Musculoskeletal: No pedal edema, no cyanosis. Skin: No rash or abscess Hem/Lymphatic: No palpable cervical or supraclavicular nodes. No lymphangitis Psych: Mood ok. Affect normal Neurological: Awake, alert, oriented. No gross abnormality - Constitutional Vitals: Vital Signs Temp Pulse Resp BP Pulse Ox 97.4 F L 51 L 16 100/63 95 08/16/20 10:07 08/16/20 07:13 08/16/20 07:13 08/16/20 07:13 08/16/20 07:13 Temperature -Last 24 Hours Temperature 97.4 F - Labs CBC & Chem 7: 08/15/20 04:52 08/15/20 04:52 Labs: Abnormal lab results 08/16/20 08/16/20 08/16/20 Range/Units 04:30 04:30 04:30 D-Dimer 991.67 H (0-234) ng/mlDDU Ferritin 356.1 H (30.0-300.0) ng/mL C-Reactive Protein 5.80 H (0.00-1.30) mg/dL
--- NOTE | 2020-08-16 14:44 | Event Note ---
Date: 08/16/20 CTA Chest reviewed; persistent consolidation (likely post obstructive component from mediastinopathy) He has had a bronchoscopy done prior and i recommend CTSU evaluation +/- VAT's / mediastinoscopy with biopsy
[2020-08-16] MEDS ORDERED: AZITHROMYCIN 250 MG TAB PO SCH (22:00)
[2020-08-17] MEDS: methylPREDNISolone Sod Succinate 40 MG/1 ML INJ IV SCH (03:58)
[2020-08-17 06:24] LABS: BUN/Creatinine Ratio 19; Blood Urea Nitrogen 17 mg/dL (9-20); Calcium 8.5 mg/dL (8.4-10.2); Hemolysis Index 1
[2020-08-17] MEDS: HEPARIN 5,000 UNIT/1 ML VIAL SUB-Q SCH ×3 (09:07→22:03)
[2020-08-17] MEDS: FAMOTIDINE 20 MG TAB PO SCH ×2 (09:07→22:02)
[2020-08-17] MEDS: EMTRICITABINE 200 MG CAP PO SCH (10:08)
[2020-08-17] MEDS: DOLUTEGRAVIR 50 MG TAB PO SCH (10:08)
[2020-08-17] MEDS: TENOFOVIR 300 MG TAB PO SCH (10:08)
--- NOTE | 2020-08-17 12:35 | Progress Note ---
Assessment and Plan Recurrent Community acquired bilateral pneumonia Febrile illness. Suspected COVID-19 virus infection Anemia D-dimer, elevated Lymphadenopathy syndrome HIV antibody positive - s/p recent bronchoscopy in december of this sae with negative cytology and only fungal forms seen - COVID assay negative - continue to wean supplemental oxygen to keep O2 sats > 90% - Bronchodilators (JJ) with pulm hygiene per RT - avoid nephrotoxins, renally dose all medications - mobility protocols to prevent pressure ulcers - PT/OT as tolerated - accuchecks with glycemic control per SSI for target blood glucose < 180 mg/dL - Smoking abstinence strongly counseled at the bedside - home oxygen evaluation at discharge - GI & VTE prophylaxis - Flu & pneumovax per protocol - Pulmonary out patient follow up for PFTs and optimization of respiratory status - continue other care per attending / other consultants - prn analgesia per pain score ... re-evaluate in am & prn Subjective Date of service: 08/17/20 Principal diagnosis: Recurent CAP; PUI COVID-19; Anemia; Febrile illness; abnormal CT; HIV +ve Interval history: Patient is seen today for: CAP; SOB; PUI COVID-19 virus infection; Anemia; Febr ile illness; Lymphadenopathy syndrome; HIV antibody positive Seen and examined at bedside; 24 hour events reviewed; nursing and respiratory care staff consulted; no adverse overnight events reported to me; resting peacefully in bed; Objective Vital Signs - 12hr 08/17/20 08/17/20 08/17/20 03:47 07:46 10:00 Temperature 97.3 F L 98.0 F Pulse Rate 67 65 58 L Respiratory 18 18 Rate Blood Pressure 92/55 95/57 O2 Sat by Pulse 98 97 Oximetry 08/17/20 11:42 Temperature 98.4 F Pulse Rate Respiratory 18 Rate Blood Pressure 99/61 O2 Sat by Pulse Oximetry CBC and BMP: 08/15/20 04:52 08/17/20 05:29 ABG, PT/INR, D-dimer: PT/INR, D-dimer PT 15.1 Sec. (12.2-14.9) H 08/14/20 00:41 INR 1.21 (0.87-1.13) H 08/14/20 00:41 D-Dimer 991.67 ng/mlDDU (0-234) H 08/16/20 04:30 Abnormal lab findings: Abnormal Labs 08/14/20 08/14/20 08/14/20 00:41 00:41 00:41 WBC Hgb 11.3 L Hct 35.1 L MCV 81 L MCH 26 L RDW 17.0 H Lymph % (Auto) 38.0 H [place] % (Auto) 8.8 H PT 15.1 H INR 1.21 H D-Dimer Sodium 130 L Chloride 95.8 L Carbon Dioxide Glucose 110 H Ferritin C-Reactive Protein Total Protein 8.5 H Albumin 3.8 L 08/14/20 08/14/20 08/15/20 06:51 06:51 04:52 WBC 4.1 L Hgb 10.1 L Hct 31.2 L MCV 82 L MCH 26 L RDW 17.3 H Lymph % (Auto) 35.9 H [place] % (Auto) 8.4 H PT INR D-Dimer 1712.29 H Sodium Chloride Carbon Dioxide Glucose 113 H Ferritin C-Reactive Protein 8.70 H Total Protein Albumin 08/15/20 08/16/20 08/16/20 04:52 04:30 04:30 WBC Hgb Hct MCV MCH RDW Lymph % (Auto) [place] % (Auto) PT INR D-Dimer 991.67 H Sodium 135 L Chloride Carbon Dioxide 21 L Glucose 104 H Ferritin 356.1 H C-Reactive Protein Total Protein Albumin 08/16/20 04:30 WBC Hgb Hct MCV MCH RDW Lymph % (Auto) [place] % (Auto) PT INR D-Dimer Sodium Chloride Carbon Dioxide Glucose Ferritin C-Reactive Protein 5.80 H Total Protein Albumin
--- NOTE | 2020-08-17 13:57 | Progress Note ---
Assessment and Plan Cultures: Blood culture 08/14/2020 A/P: 35-year-old man past medical history HIV on Biktarvy, PJP admitted to the hospital with pneumonia #Right-sided organizing pneumonia: Patient with elevated procalcitonin, will treat as bacterial for now. However since it is fairly persistent from his last admission may need to consider obtaining bronchoscopy to rule out other etiologies. #HIV: Well-controlled on the Biktarvy. Will restart with in-house options with dolutegravir, and emtricitabine, tenofovir. Most recent CD4 count greater than 200 with a 16%. Next less likely, however not impossible for him to have infections, and in immunosuppressed patients. #Acute sepsis: Present with fevers and leukopenia and tachycardia. Likely se condary to pneumonia. Recs: -Continue ceftriaxone azithromycin for now, complete 5 days and 3 days respectively. If discharging prior to completion of this regimen would send with cefdinir 300mg q12h to complete the 5 days. -procalcitonin improving. -f/u viral load and CD4 count -Noted pulm plan for evaluation of mediastinopathy per Dr. Sawyer. Will defer to them -Started dolutegravir, emtricitabine, tenofovir in place of home Biktarvy. Resume Biktarvy on discharge -Can follow up with me in the clinic in 6 months for routine HIV care. Thank you for the consult, we will sign off. Please call with questions. Moses Garcia MD [facility] O: [phone] F: [phone] Subjective Date of service: 08/17/20 Principal diagnosis: Recurent CAP; PUI COVID-19; Anemia; Febrile illness; abnormal CT; HIV +ve Interval history: Afebrile, no other acute changes. He notes feeling better today. Procalcitonin has been improving. Objective - Exam Narrative Exam: Physical Exam: Constitutional: Alert, cooperative. No acute distress Head, Ears, Nose: Normocephalic, atraumatic. Eyes: Conjunctivae/corneas clear. No icterus. No ptosis. Neck: Supple, no meningeal signs Oral: dentition fair, no thrush Cardiovascular: S1, S2 normal. Respiratory: Good air entry, clear to auscultation bilaterally GI: Soft, non-tender; bowel sounds normal. No peritoneal signs. Musculoskeletal: No pedal edema, no cyanosis. Skin: Bilateral petechial rash of lower extremities. Chronic. Hem/Lymphatic: No palpable cervical or supraclavicular nodes. No lymphangitis Psych: Mood ok. Affect normal Neurological: Awake, alert, oriented. No gross abnormality - Constitutional Vitals: Vital Signs Temp Pulse Resp BP Pulse Ox 98.4 F 58 L 18 99/61 97 08/17/20 11:42 08/17/20 10:00 08/17/20 11:42 08/17/20 11:42 08/17/20 07:46 Temperature -Last 24 Hours Temperature 98.4 F Temperature 98.0 F Temperature 97.3 F Temperature 97.5 F Temperature 97.5 F - Labs CBC & Chem 7: 08/15/20 04:52 08/17/20 05:29
--- NOTE | 2020-08-17 14:30 | Progress Note ---
Assessment and Plan - Patient Problems (1) Sepsis Current Visit: Yes Status: Acute Plan to address problem: -Presented with tachycardia, hypotension, febrile, CXR with opacities -Antibiotic therapy -Infectious disease consulted, appreciate recommendation -08/14 blood cultures x2 NGTD -08/14 urine culture with NGTD -S/p vasopressor support for blood pressure (2) Pneumonia Current Visit: Yes Status: Ruled-out Plan to address problem: -08/14/2020 CXR shows persistent bilateral nodular opacities which is worse on the right lower lung zone -Supplemental oxygen as needed -Pulmonary hygiene -Antibiotic therapy -08/15 CTA chest ordered by pulmonary which shows consolidation -Per pulmonology: s/p recent bronchoscopy in december of this year with negative cytology and only fungal forms seen (3) Acute respiratory failure with hypoxia Current Visit: Yes Status: Acute Plan to address problem: -Supplemental oxygen as needed -Pulmonary hygiene -SPO2 monitoring (4) D-dimer, elevated Current Visit: No Status: Acute Plan to address problem: -08/14 D-dimer 1712 -08/14 bilateral lower extremity duplex ultrasound shows no acute DVT/SVT -08/14 VQ scan shows relative photopenia in the right lower lobe where there is also patchy airspace disease on the accompanying chest x-ray. A ventilation component of this exam was not performed; however, these findings would likely technically fall within the criteria of an intermediate probability on a traditional ventilation/perfusion scan (i.e. triple match study). -Trend D-dimer (5) Hyponatremia Current Visit: Yes Status: Resolved Plan to address problem: -Patient with a sodium of 130 -S/p 2.5 normal saline in the emergency department -Trend BMP -Avoid rapid correction -Monitor neuro status -08/15 sodium 135, 08/17 Na 137 (6) Metabolic acidosis Current Visit: Yes Status: Resolved Plan to address problem: -08/15 CO2 21 and BMP, 08/17 CO2 26 -Discontinue IVF -Trend BMP (7) HIV (human immunodeficiency virus infection) Current Visit: Yes Status: Chronic Plan to address problem: -Continue home antiretroviral therapy -Patient states last CD4 count was normal -Asymptomatic (8) Lymphadenopathy syndrome Current Visit: No Status: Chronic Plan to address problem: -Chronic bilateral extremity swelling -Negative for DVT -Supportive care (9) DVT prophylaxis Current Visit: No Status: Acute Plan to address problem: -SCDs to bilateral lower extremities while in bed -Heparin subq History Interval history: This is a 35-year-old male with HIV ("last CD4 count was normal"), pneumonia (x2 in 2019) and bilateral swollen lower extremities with discoloration who presents the emergency department on 08/14 with a 1 day history of shortness of breath, headache, dry cough, chills and subjective fever. Upon arrival to the emergency department patient was found to be febrile, tachycardic and hypotensive which was unresponsive to fluid resuscitation and a CVL was placed and he was started on Levophed for blood pressure support. Patient was found to have elevated D- dimer (1712), hyponatremia 130, hypochloremia as 95.8, and his chest x-ray showed persistent bilateral nodular opacities which is worse on the right lateral lower lung zone. Patient was admitted to the hospital service has a COVID-19 PUI and ID and CCM was consulted. No acute events reported overnight. Infectious disease has signed off. Pulmonology has requested CTS evaluation and Dr. Negrete was consulted. 08/15: COVID-19 PCR negative 08/16: Patient has been weaned off Levophed, No acute events reported overnight and the patient has no complaints this morning. His hyponatremia has improved, hypochloremia has resolved and he has slight metabolic acidosis on BMP. Patient can be downgraded since he is off vasopressor support. CTA chest, restarted Biktarvy Hospitalist Physical - Constitutional Vitals: Temp Pulse Resp BP Pulse Ox 98.4 F 58 L 18 99/61 97 08/17/20 11:42 08/17/20 10:00 08/17/20 11:42 08/17/20 11:42 08/17/20 07:46 General appearance: Present: no acute distress Results - Labs CBC & Chem 7: 08/15/20 04:52 08/17/20 05:29 Labs: Laboratory Last Values WBC 4.1 K/mm3 (4.5-11.0) L 08/15/20 04:52 RBC 3.83 M/mm3 (3.65-5.03) 08/15/20 04:52 Hgb 10.1 gm/dl (11.8-15.2) L 08/15/20 04:52 Hct 31.2 % (35.5-45.6) L 08/15/20 04:52 MCV 82 fl (84-94) L 08/15/20 04:52 MCH 26 pg (28-32) L 08/15/20 04:52 MCHC 32 % (32-34) 08/15/20 04:52 RDW 17.3 % (13.2-15.2) H 08/15/20 04:52 Plt Count 235 K/mm3 (140-440) 08/15/20 04:52 Lymph % (Auto) 35.9 % (13.4-35.0) H 08/15/20 04:52 [place] % (Auto) 8.4 % (0.0-7.3) H 08/15/20 04:52 Eos % (Auto) 0.0 % (0.0-4.3) 08/15/20 04:52 Baso % (Auto) 0.3 % (0.0-1.8) 08/15/20 04:52 Lymph # (Auto) 1.5 K/mm3 (1.2-5.4) 08/15/20 04:52 [place] # (Auto) 0.3 K/mm3 (0.0-0.8) 08/15/20 04:52 Eos # (Auto) 0.0 K/mm3 (0.0-0.4) 08/15/20 04:52 Baso # (Auto) 0.0 K/mm3 (0.0-0.1) 08/15/20 04:52 Seg Neutrophils % 55.4 % (40.0-70.0) 08/15/20 04:52 Seg Neutrophils # 2.3 K/mm3 (1.8-7.7) 08/15/20 04:52 PT 15.1 Sec. (12.2-14.9) H 08/14/20 00:41 INR 1.21 (0.87-1.13) H 08/14/20 00:41 D-Dimer 991.67 ng/mlDDU (0-234) H 08/16/20 04:30 VBG pH 7.413 (7.320-7.420) 08/14/20 00:41 Sodium 137 mmol/L (137-145) 08/17/20 05:29 Potassium 4.0 mmol/L (3.6-5.0) 08/17/20 05:29 Chloride 104.0 mmol/L (98-107) 08/17/20 05:29 Carbon Dioxide 26 mmol/L (22-30) 08/17/20 05:29 Anion Gap 11 mmol/L 08/17/20 05:29 BUN 17 mg/dL (9-20) 08/17/20 05:29 Creatinine 0.9 mg/dL (0.8-1.3) 08/17/20 05:29 Estimated GFR > 60 ml/min 08/17/20 05:29 BUN/Creatinine Ratio 19 % 08/17/20 05:29 Glucose 88 mg/dL (75-100) 08/17/20 05:29 Lactic Acid 0.70 mmol/L (0.7-2.0) 08/14/20 03:42 Calcium 8.5 mg/dL (8.4-10.2) 08/17/20 05:29 Ferritin 356.1 ng/mL (30.0-300.0) H 08/16/20 04:30 Total Bilirubin 0.50 mg/dL (0.1-1.2) 08/14/20 00:41 AST 15 units/L (5-40) 08/14/20 00:41 ALT 17 units/L (7-56) 08/14/20 00:41 Alkaline Phosphatase 69 units/L (35-129) 08/14/20 00:41 Lactate Dehydrogenase 158 units/L (91-180) 08/16/20 04:30 C-Reactive Protein 5.80 mg/dL (0.00-1.30) H 08/16/20 04:30 Total Protein 8.5 g/dL (6.3-8.2) H 08/14/20 00:41 Albumin 3.8 g/dL (3.9-5) L 08/14/20 00:41 Albumin/Globulin Ratio 0.8 % 08/14/20 00:41 Procalcitonin 1.41 ng/mL (<0.15) 08/16/20 15:32 Urine Color Yellow (Yellow) 08/14/20 03:45 Urine Turbidity Clear (Clear) 08/14/20 03:45 Urine pH 6.0 (5.0-7.0) 08/14/20 03:45 Ur Specific [place] 1.009 (1.003-1.030) 08/14/20 03:45 Urine Protein <15 mg/dl mg/dL (Negative) 08/14/20 03:45 Urine Glucose (UA) Neg mg/dL (Negative) 08/14/20 03:45 Urine Ketones Neg mg/dL (Negative) 08/14/20 03:45 Urine Blood Neg (Negative) 08/14/20 03:45 Urine Nitrite Neg (Negative) 08/14/20 03:45 Urine Bilirubin Neg (Negative) 08/14/20 03:45 Urine Urobilinogen < 2.0 mg/dL (<2.0) 08/14/20 03:45 Ur Leukocyte Esterase Neg (Negative) 08/14/20 03:45 Urine WBC (Auto) 1.0 /HPF (0.0-6.0) 08/14/20 03:45 Urine RBC (Auto) 0.0 /HPF (0.0-6.0) 08/14/20 03:45 Urine Mucus Few /HPF 08/14/20 03:45 Coronavirus (PCR) Negative (Negative) 08/14/20 09:03 Microbiology: Microbiology 08/14/20 00:36 Peripheral/Venous Blood Culture - Preliminary NO GROWTH AFTER 72 HOURS 08/14/20 00:41 Peripheral/Venous Blood Culture - Preliminary NO GROWTH AFTER 72 HOURS 08/14/20 03:45 Urine,Clean Catch Urine Culture - Final NO GROWTH AFTER 48 HOURS Thakur/IV: Voiding Method Toilet IV Catheter Type [Left Femoral Triple Lumen Cath ] IV Catheter Type [Right Peripheral IV Forearm] Active Medications - Current Medications Current Medications: Generic Name Dose Route Start Last Admin Trade Name Freq PRN Reason Stop Dose Admin Acetaminophen 650 mg 08/14/20 07:54 Acetaminophen 325 Mg Tab PO Q6H PRN Pain MILD(1-3)/Fever >100.5/LIU Albuterol 2.5 mg 08/14/20 07:54 Albuterol 2.5 Mg/3 Ml Nebu IH Q3HRT PRN Shortness Of Breath Emtricitabine 200 mg 08/16/20 10:00 08/17/20 10:08 Emtricitabine 200 Mg Cap PO 200 mg QDAY CEFERINO Administration Famotidine 20 mg 08/15/20 10:00 08/17/20 09:07 Famotidine 20 Mg Tab PO 20 mg BID CEFERINO Administration Heparin Sodium (Porcine) 5,000 unit 08/14/20 10:00 08/17/20 09:11 Heparin 5,000 Unit/1 Ml Vial SUB-Q Not Given Q12HR [facility] Ceftriaxone Sodium 2 gm in 100 mls @ 200 mls/hr 08/14/20 22:00 08/16/20 21:44 Rocephin/Ns 2 Gm/100 Ml IV 08/18/20 22:29 200 mls/hr Q24H CEFERINO Administration Protocol Magnesium Hydroxide 30 ml 08/14/20 07:54 Magnesium Hydroxide (Mom) Oral Liqd Udc PO Q4H PRN Constipation Morphine Sulfate 2 mg 08/14/20 07:54 Morphine 2 Mg/1 Ml Inj IV Q4H PRN Pain, Moderate (4-6) Morphine Sulfate 4 mg 08/14/20 07:54 Morphine 4 Mg/1 Ml Inj IV Q4H PRN Pain , Severe (7-10) Naloxone HCl 0.1 mg 08/14/20 07:54 Naloxone 0.4 Mg/1 Ml Inj IV Q2MIN PRN Res Rate </= 8 or 02 SAT < 92% Ondansetron HCl 4 mg 08/14/20 07:54 Ondansetron 4 Mg/2 Ml Inj IV Q8H PRN Nausea And Vomiting Sodium Chloride 10 ml 08/14/20 10:00 08/17/20 09:08 Sodium Chloride 0.9% 10 Ml Flush Syringe IV 10 ml BID CEFERINO Administration Sodium Chloride 10 ml 08/14/20 07:54 Sodium Chloride 0.9% 10 Ml Flush Syringe IV PRN PRN LINE FLUSH Tenofovir Disoproxil Fumarate 300 mg 08/16/20 10:00 08/17/20 10:08 Tenofovir 300 Mg Tab PO 300 mg QDAY CEFERINO Administration Nutrition/Malnutrition Assess - Dietary Evaluation Nutrition/Malnutrition Findings: Nutrition Notes Start: 08/14/20 13:07 Freq: Status: Active Protocol: Document 08/16/20 14:29 CW (Rec: 08/16/20 14:39 CW [email or web address]) Co-Sign 08/16/20 14:29 NHALL Nutrition Notes Initial or Follow up Brief Note Current Diagnosis Acute Kidney Injury,Sepsis Other Pertinent Diagnosis anemia, acute RF w/ hypoxia, HIV, pneumonia Current Diet Regular diet Subjective/Other Information FU for full assessment/ MD MST screening. Pt remains on hold in ED. Per chart, pt is sitting up eating at bedside. Nutrition Intervention Follow-Up By: 08/21/20 Additional Comments FU for need for full assessment/ MST screening
[2020-08-17] MEDS: cefTRIAXone/NS 2 GM/100 ML 2 GM/100 ML BAG IV SCH (22:02)
[2020-08-18 06:57] LABS: C-Reactive Protein 1.9 mg/dL (0.00-1.30)
[2020-08-18] MEDS: TENOFOVIR 300 MG TAB PO SCH (09:09)
[2020-08-18] MEDS: DOLUTEGRAVIR 50 MG TAB PO SCH (09:09)
[2020-08-18] MEDS: HEPARIN 5,000 UNIT/1 ML VIAL SUB-Q SCH ×2 (09:09→21:18)
[2020-08-18] MEDS: EMTRICITABINE 200 MG CAP PO SCH (09:09)
[2020-08-18] MEDS: FAMOTIDINE 20 MG TAB PO SCH ×2 (09:09→21:19)
--- NOTE | 2020-08-18 10:03 | Progress Note ---
Hospitalist Physical - Constitutional Vitals: Temp Pulse Resp BP Pulse Ox 98.0 F 82 18 94/55 96 08/18/20 04:35 08/18/20 07:43 08/18/20 04:35 08/18/20 04:35 08/18/20 04:35 General appearance: Present: no acute distress Results - Labs CBC & Chem 7: 08/15/20 04:52 08/17/20 05:29 Labs: Laboratory Last Values WBC 4.1 K/mm3 (4.5-11.0) L 08/15/20 04:52 RBC 3.83 M/mm3 (3.65-5.03) 08/15/20 04:52 Hgb 10.1 gm/dl (11.8-15.2) L 08/15/20 04:52 Hct 31.2 % (35.5-45.6) L 08/15/20 04:52 MCV 82 fl (84-94) L 08/15/20 04:52 MCH 26 pg (28-32) L 08/15/20 04:52 MCHC 32 % (32-34) 08/15/20 04:52 RDW 17.3 % (13.2-15.2) H 08/15/20 04:52 Plt Count 235 K/mm3 (140-440) 08/15/20 04:52 Lymph % (Auto) 35.9 % (13.4-35.0) H 08/15/20 04:52 [place] % (Auto) 8.4 % (0.0-7.3) H 08/15/20 04:52 Eos % (Auto) 0.0 % (0.0-4.3) 08/15/20 04:52 Baso % (Auto) 0.3 % (0.0-1.8) 08/15/20 04:52 Lymph # (Auto) 1.5 K/mm3 (1.2-5.4) 08/15/20 04:52 [place] # (Auto) 0.3 K/mm3 (0.0-0.8) 08/15/20 04:52 Eos # (Auto) 0.0 K/mm3 (0.0-0.4) 08/15/20 04:52 Baso # (Auto) 0.0 K/mm3 (0.0-0.1) 08/15/20 04:52 Seg Neutrophils % 55.4 % (40.0-70.0) 08/15/20 04:52 Seg Neutrophils # 2.3 K/mm3 (1.8-7.7) 08/15/20 04:52 PT 15.1 Sec. (12.2-14.9) H 08/14/20 00:41 INR 1.21 (0.87-1.13) H 08/14/20 00:41 D-Dimer 887.59 ng/mlDDU (0-234) H 08/18/20 05:53 VBG pH 7.413 (7.320-7.420) 08/14/20 00:41 Sodium 137 mmol/L (137-145) 08/17/20 05:29 Potassium 4.0 mmol/L (3.6-5.0) 08/17/20 05:29 Chloride 104.0 mmol/L (98-107) 08/17/20 05:29 Carbon Dioxide 26 mmol/L (22-30) 08/17/20 05:29 Anion Gap 11 mmol/L 08/17/20 05:29 BUN 17 mg/dL (9-20) 08/17/20 05:29 Creatinine 0.9 mg/dL (0.8-1.3) 08/17/20 05:29 Estimated GFR > 60 ml/min 08/17/20 05:29 BUN/Creatinine Ratio 19 % 08/17/20 05:29 Glucose 88 mg/dL (75-100) 08/17/20 05:29 Lactic Acid 0.70 mmol/L (0.7-2.0) 08/14/20 03:42 Calcium 8.5 mg/dL (8.4-10.2) 08/17/20 05:29 Ferritin 262.9 ng/mL (30.0-300.0) 08/18/20 05:53 Total Bilirubin 0.50 mg/dL (0.1-1.2) 08/14/20 00:41 AST 15 units/L (5-40) 08/14/20 00:41 ALT 17 units/L (7-56) 08/14/20 00:41 Alkaline Phosphatase 69 units/L (35-129) 08/14/20 00:41 Lactate Dehydrogenase 128 units/L (91-180) 08/18/20 05:53 C-Reactive Protein 1.90 mg/dL (0.00-1.30) H 08/18/20 05:53 Total Protein 8.5 g/dL (6.3-8.2) H 08/14/20 00:41 Albumin 3.8 g/dL (3.9-5) L 08/14/20 00:41 Albumin/Globulin Ratio 0.8 % 08/14/20 00:41 Procalcitonin 1.41 ng/mL (<0.15) 08/16/20 15:32 Urine Color Yellow (Yellow) 08/14/20 03:45 Urine Turbidity Clear (Clear) 08/14/20 03:45 Urine pH 6.0 (5.0-7.0) 08/14/20 03:45 Ur Specific [place] 1.009 (1.003-1.030) 08/14/20 03:45 Urine Protein <15 mg/dl mg/dL (Negative) 08/14/20 03:45 Urine Glucose (UA) Neg mg/dL (Negative) 08/14/20 03:45 Urine Ketones Neg mg/dL (Negative) 08/14/20 03:45 Urine Blood Neg (Negative) 08/14/20 03:45 Urine Nitrite Neg (Negative) 08/14/20 03:45 Urine Bilirubin Neg (Negative) 08/14/20 03:45 Urine Urobilinogen < 2.0 mg/dL (<2.0) 08/14/20 03:45 Ur Leukocyte Esterase Neg (Negative) 08/14/20 03:45 Urine WBC (Auto) 1.0 /HPF (0.0-6.0) 08/14/20 03:45 Urine RBC (Auto) 0.0 /HPF (0.0-6.0) 08/14/20 03:45 Urine Mucus Few /HPF 08/14/20 03:45 Coronavirus (PCR) Negative (Negative) 08/14/20 09:03 Microbiology: Microbiology 08/14/20 00:36 Peripheral/Venous Blood Culture - Preliminary NO GROWTH AFTER 4 DAYS 08/14/20 00:41 Peripheral/Venous Blood Culture - Preliminary NO GROWTH AFTER 4 DAYS Thakur/IV: Voiding Method Toilet IV Catheter Type [Left Femoral Triple Lumen Cath ] IV Catheter Type [Right Peripheral IV Forearm] Active Medications - Current Medications Current Medications: Generic Name Dose Route Start Last Admin Trade Name Freq PRN Reason Stop Dose Admin Acetaminophen 650 mg 08/14/20 07:54 Acetaminophen 325 Mg Tab PO Q6H PRN Pain MILD(1-3)/Fever >100.5/LIU Albuterol 2.5 mg 08/14/20 07:54 Albuterol 2.5 Mg/3 Ml Nebu IH Q3HRT PRN Shortness Of Breath Emtricitabine 200 mg 08/16/20 10:00 08/18/20 09:09 Emtricitabine 200 Mg Cap PO 200 mg QDAY CEFERINO Administration Famotidine 20 mg 08/15/20 10:00 08/18/20 09:09 Famotidine 20 Mg Tab PO 20 mg BID CEFERINO Administration Heparin Sodium (Porcine) 5,000 unit 08/14/20 10:00 08/18/20 09:09 Heparin 5,000 Unit/1 Ml Vial SUB-Q Not Given Q12HR CEFERINO Ceftriaxone Sodium 2 gm in 100 mls @ 200 mls/hr 08/14/20 22:00 08/17/20 22:02 Rocephin/Ns 2 Gm/100 Ml IV 08/18/20 22:29 200 mls/hr Q24H CEFERINO Administration Protocol Magnesium Hydroxide 30 ml 08/14/20 07:54 Magnesium Hydroxide (Mom) Oral Liqd Udc PO Q4H PRN Constipation Morphine Sulfate 2 mg 08/14/20 07:54 Morphine 2 Mg/1 Ml Inj IV Q4H PRN Pain, Moderate (4-6) Morphine Sulfate 4 mg 08/14/20 07:54 Morphine 4 Mg/1 Ml Inj IV Q4H PRN Pain , Severe (7-10) Naloxone HCl 0.1 mg 08/14/20 07:54 Naloxone 0.4 Mg/1 Ml Inj IV Q2MIN PRN Res Rate </= 8 or 02 SAT < 92% Ondansetron HCl 4 mg 08/14/20 07:54 Ondansetron 4 Mg/2 Ml Inj IV Q8H PRN Nausea And Vomiting Sodium Chloride 10 ml 08/14/20 10:00 08/18/20 09:09 Sodium Chloride 0.9% 10 Ml Flush Syringe IV 10 ml BID CEFERINO Administration Sodium Chloride 10 ml 08/14/20 07:54 Sodium Chloride 0.9% 10 Ml Flush Syringe IV PRN PRN LINE FLUSH Tenofovir Disoproxil Fumarate 300 mg 08/16/20 10:00 08/18/20 09:09 Tenofovir 300 Mg Tab PO 300 mg QDAY CEFERINO Administration Nutrition/Malnutrition Assess - Dietary Evaluation Nutrition/Malnutrition Findings: Nutrition Notes Start: 08/14/20 13:07 Freq: Status: Active Protocol: Document 08/16/20 14:29 CW (Rec: 08/16/20 14:39 CW [email or web address]) Co-Sign 08/16/20 14:29 NHALL Nutrition Notes Initial or Follow up Brief Note Current Diagnosis Acute Kidney Injury,Sepsis Other Pertinent Diagnosis anemia, acute RF w/ hypoxia, HIV, pneumonia Current Diet Regular diet Subjective/Other Information FU for full assessment/ MD MST screening. Pt remains on hold in ED. Per chart, pt is sitting up eating at bedside. Nutrition Intervention Follow-Up By: 08/21/20 Additional Comments FU for need for full assessment/ MST screening
--- NOTE | 2020-08-18 10:16 | Progress Note ---
Assessment and Plan Assessment and plan: Sepsis -Presented with tachycardia, hypotension, febrile, CXR with opacities -Antibiotic therapy -Infectious disease consulted, appreciate recommendation -08/14 blood cultures x2 NGTD -08/14 urine culture with NGTD -S/p vasopressor support for blood pressure Pneumonia -08/14/2020 CXR shows persistent bilateral nodular opacities which is worse on the right lower lung zone -Supplemental oxygen as needed -Pulmonary hygiene -Antibiotic therapy -08/15 CTA chest ordered by pulmonary which shows consolidation -Per pulmonology: s/p recent bronchoscopy in december of this year with negative cytology and only fungal forms seen Acute respiratory failure with hypoxia -Supplemental oxygen as needed -Pulmonary hygiene -SPO2 monitoring D-dimer, elevated -08/14 D-dimer 1712 -08/14 bilateral lower extremity duplex ultrasound shows no acute DVT/SVT -08/14 VQ scan shows relative photopenia in the right lower lobe where there is also patchy airspace disease on the accompanying chest x-ray. A ventilation component of this exam was not performed; however, these findings would likely technically fall within the criteria of an intermediate probability on a traditional ventilation/perfusion scan (i.e. triple match study). -Trend D-dimer Hyponatremia -Patient with a sodium of 130 -S/p 2.5 normal saline in the emergency department -Trend BMP -Avoid rapid correction -Monitor neuro status -08/15 sodium 135, 08/17 Na 137 Metabolic acidosis -08/15 CO2 21 and BMP, 08/17 CO2 26 -Discontinue IVF -Trend BMP HIV (human immunodeficiency virus infection) -Continue home antiretroviral therapy -Patient states last CD4 count was normal -Asymptomatic Lymphadenopathy syndrome -Chronic bilateral extremity swelling -Negative for DVT -Supportive care DVT prophylaxis -SCDs to bilateral lower extremities while in bed -Heparin subq 08/15: COVID-19 PCR negative 08/16: Patient has been weaned off Levophed, No acute events reported overnight and the patient has no complaints this morning. His hyponatremia has improved, hypochloremia has resolved and he has slight metabolic acidosis on BMP. Patient can be downgraded since he is off vasopressor support. CTA chest, restarted Bik tarvy. 08/17: Patient currently on room air satting 98%. The patient was transferred to telemetry now that he is off vasopressor support. 08/18: Pulmonology reported patient is s/p bronchoscopy December 2019 with negative cytology and only fungal forms seen. Continue ceftriaxone and azithromycin. Procalcitonin improving. Follow-up viral load and CD4 count. CT surgery consulted for possible mediastinoscopy/VATS procedure. History Interval history: Interval history: This is a 35-year-old male with HIV ("last CD4 count was normal"), pneumonia (x2 in 2019) and bilateral swollen lower extremities with discoloration who presents the emergency department on 08/14 with a 1 day history of shortness of breath, headache, dry cough, chills and subjective fever. Upon arrival to the emergency department patient was found to be febrile, tachycardic and hypotensive which was unresponsive to fluid resuscitation and a CVL was placed and he was started on Levophed for blood pressure support. Patient was found to have elevated D- dimer (1712), hyponatremia 130, hypochloremia as 95.8, and his chest x-ray showed persistent bilateral nodular opacities which is worse on the right lateral lower lung zone. Patient was admitted to the hospital service has a COVID-19 PUI and ID and CCM was consulted. No acute events reported overnight. Infectious disease has signed off. Pulmonology has requested CTS evaluation and Dr. Negrete was consulted. No new issues overnight. Hospitalist Physical - Constitutional Vitals: Temp Pulse Resp BP Pulse Ox 98.0 F 82 18 94/55 96 08/18/20 04:35 08/18/20 07:43 08/18/20 04:35 08/18/20 04:35 08/18/20 04:35 General appearance: Present: no acute distress - EENT Eyes: Present: PERRL, EOM intact ENT: hearing intact, clear oral mucosa, dentition normal - Neck Neck: Present: supple, normal ROM - Respiratory Respiratory effort: normal Respiratory: bilateral: CTA - Cardiovascular Rhythm: regular Heart Sounds: Present: S1 & S2. Absent: gallop, rub - Extremities Extremities: no ischemia, No edema, Full ROM - Abdominal General gastrointestinal: soft, non-tender, non-distended, normal bowel sounds - Integumentary Integumentary: Present: clear, warm, dry - Neurologic Neurologic: CNII-XII intact, moves all extremities Results - Labs CBC & Chem 7: 08/15/20 04:52 08/17/20 05:29 Labs: Laboratory Last Values WBC 4.1 K/mm3 (4.5-11.0) L 08/15/20 04:52 RBC 3.83 M/mm3 (3.65-5.03) 08/15/20 04:52 Hgb 10.1 gm/dl (11.8-15.2) L 08/15/20 04:52 Hct 31.2 % (35.5-45.6) L 08/15/20 04:52 MCV 82 fl (84-94) L 08/15/20 04:52 MCH 26 pg (28-32) L 08/15/20 04:52 MCHC 32 % (32-34) 08/15/20 04:52 RDW 17.3 % (13.2-15.2) H 08/15/20 04:52 Plt Count 235 K/mm3 (140-440) 08/15/20 04:52 Lymph % (Auto) 35.9 % (13.4-35.0) H 08/15/20 04:52 [place] % (Auto) 8.4 % (0.0-7.3) H 08/15/20 04:52 Eos % (Auto) 0.0 % (0.0-4.3) 08/15/20 04:52 Baso % (Auto) 0.3 % (0.0-1.8) 08/15/20 04:52 Lymph # (Auto) 1.5 K/mm3 (1.2-5.4) 08/15/20 04:52 [place] # (Auto) 0.3 K/mm3 (0.0-0.8) 08/15/20 04:52 Eos # (Auto) 0.0 K/mm3 (0.0-0.4) 08/15/20 04:52 Baso # (Auto) 0.0 K/mm3 (0.0-0.1) 08/15/20 04:52 Seg Neutrophils % 55.4 % (40.0-70.0) 08/15/20 04:52 Seg Neutrophils # 2.3 K/mm3 (1.8-7.7) 08/15/20 04:52 PT 15.1 Sec. (12.2-14.9) H 08/14/20 00:41 INR 1.21 (0.87-1.13) H 08/14/20 00:41 D-Dimer 887.59 ng/mlDDU (0-234) H 08/18/20 05:53 VBG pH 7.413 (7.320-7.420) 08/14/20 00:41 Sodium 137 mmol/L (137-145) 08/17/20 05:29 Potassium 4.0 mmol/L (3.6-5.0) 08/17/20 05:29 Chloride 104.0 mmol/L (98-107) 08/17/20 05:29 Carbon Dioxide 26 mmol/L (22-30) 08/17/20 05:29 Anion Gap 11 mmol/L 08/17/20 05:29 BUN 17 mg/dL (9-20) 08/17/20 05:29 Creatinine 0.9 mg/dL (0.8-1.3) 08/17/20 05:29 Estimated GFR > 60 ml/min 08/17/20 05:29 BUN/Creatinine Ratio 19 % 08/17/20 05:29 Glucose 88 mg/dL (75-100) 08/17/20 05:29 Lactic Acid 0.70 mmol/L (0.7-2.0) 08/14/20 03:42 Calcium 8.5 mg/dL (8.4-10.2) 08/17/20 05:29 Ferritin 262.9 ng/mL (30.0-300.0) 08/18/20 05:53 Total Bilirubin 0.50 mg/dL (0.1-1.2) 08/14/20 00:41 AST 15 units/L (5-40) 08/14/20 00:41 ALT 17 units/L (7-56) 08/14/20 00:41 Alkaline Phosphatase 69 units/L (35-129) 08/14/20 00:41 Lactate Dehydrogenase 128 units/L (91-180) 08/18/20 05:53 C-Reactive Protein 1.90 mg/dL (0.00-1.30) H 08/18/20 05:53 Total Protein 8.5 g/dL (6.3-8.2) H 08/14/20 00:41 Albumin 3.8 g/dL (3.9-5) L 08/14/20 00:41 Albumin/Globulin Ratio 0.8 % 08/14/20 00:41 Procalcitonin 1.41 ng/mL (<0.15) 08/16/20 15:32 Urine Color Yellow (Yellow) 08/14/20 03:45 Urine Turbidity Clear (Clear) 08/14/20 03:45 Urine pH 6.0 (5.0-7.0) 08/14/20 03:45 Ur Specific [place] 1.009 (1.003-1.030) 08/14/20 03:45 Urine Protein <15 mg/dl mg/dL (Negative) 08/14/20 03:45 Urine Glucose (UA) Neg mg/dL (Negative) 08/14/20 03:45 Urine Ketones Neg mg/dL (Negative) 08/14/20 03:45 Urine Blood Neg (Negative) 08/14/20 03:45 Urine Nitrite Neg (Negative) 08/14/20 03:45 Urine Bilirubin Neg (Negative) 08/14/20 03:45 Urine Urobilinogen < 2.0 mg/dL (<2.0) 08/14/20 03:45 Ur Leukocyte Esterase Neg (Negative) 08/14/20 03:45 Urine WBC (Auto) 1.0 /HPF (0.0-6.0) 08/14/20 03:45 Urine RBC (Auto) 0.0 /HPF (0.0-6.0) 08/14/20 03:45 Urine Mucus Few /HPF 08/14/20 03:45 Coronavirus (PCR) Negative (Negative) 08/14/20 09:03 Microbiology: Microbiology 08/14/20 00:36 Peripheral/Venous Blood Culture - Preliminary NO GROWTH AFTER 4 DAYS 08/14/20 00:41 Peripheral/Venous Blood Culture - Preliminary NO GROWTH AFTER 4 DAYS Thakur/IV: Voiding Method Toilet IV Catheter Type [Left Femoral Triple Lumen Cath ] IV Catheter Type [Right Peripheral IV Forearm] Active Medications - Current Medications Current Medications: Generic Name Dose Route Start Last Admin Trade Name Freq PRN Reason Stop Dose Admin Acetaminophen 650 mg 08/14/20 07:54 Acetaminophen 325 Mg Tab PO Q6H PRN Pain MILD(1-3)/Fever >100.5/LIU Albuterol 2.5 mg 08/14/20 07:54 Albuterol 2.5 Mg/3 Ml Nebu IH Q3HRT PRN Shortness Of Breath Emtricitabine 200 mg 08/16/20 10:00 08/18/20 09:09 Emtricitabine 200 Mg Cap PO 200 mg QDAY CEFERINO Administration Famotidine 20 mg 08/15/20 10:00 08/18/20 09:09 Famotidine 20 Mg Tab PO 20 mg BID CEFERINO Administration Heparin Sodium (Porcine) 5,000 unit 08/14/20 10:00 08/18/20 09:09 Heparin 5,000 Unit/1 Ml Vial SUB-Q Not Given Q12HR CEFERINO Ceftriaxone Sodium 2 gm in 100 mls @ 200 mls/hr 08/14/20 22:00 08/17/20 22:02 Rocephin/Ns 2 Gm/100 Ml IV 08/18/20 22:29 200 mls/hr Q24H CEFERINO Administration Protocol Magnesium Hydroxide 30 ml 08/14/20 07:54 Magnesium Hydroxide (Mom) Oral Liqd Udc PO Q4H PRN Constipation Morphine Sulfate 2 mg 08/14/20 07:54 Morphine 2 Mg/1 Ml Inj IV Q4H PRN Pain, Moderate (4-6) Morphine Sulfate 4 mg 08/14/20 07:54 Morphine 4 Mg/1 Ml Inj IV Q4H PRN Pain , Severe (7-10) Naloxone HCl 0.1 mg 08/14/20 07:54 Naloxone 0.4 Mg/1 Ml Inj IV Q2MIN PRN Res Rate </= 8 or 02 SAT < 92% Ondansetron HCl 4 mg 08/14/20 07:54 Ondansetron 4 Mg/2 Ml Inj IV Q8H PRN Nausea And Vomiting Sodium Chloride 10 ml 08/14/20 10:00 08/18/20 09:09 Sodium Chloride 0.9% 10 Ml Flush Syringe IV 10 ml BID CEFERINO Administration Sodium Chloride 10 ml 08/14/20 07:54 Sodium Chloride 0.9% 10 Ml Flush Syringe IV PRN PRN LINE FLUSH Tenofovir Disoproxil Fumarate 300 mg 08/16/20 10:00 08/18/20 09:09 Tenofovir 300 Mg Tab PO 300 mg QDAY CEFERINO Administration Nutrition/Malnutrition Assess - Dietary Evaluation Nutrition/Malnutrition Findings: Nutrition Notes Start: 08/14/20 13:07 Freq: Status: Active Protocol: Document 08/16/20 14:29 CW (Rec: 08/16/20 14:39 CW [email or web address]) Co-Sign 08/16/20 14:29 NHALL Nutrition Notes Initial or Follow up Brief Note Current Diagnosis Acute Kidney Injury,Sepsis Other Pertinent Diagnosis anemia, acute RF w/ hypoxia, HIV, pneumonia Current Diet Regular diet Subjective/Other Information FU for full assessment/ MD MST screening. Pt remains on hold in ED. Per chart, pt is sitting up eating at bedside. Nutrition Intervention Follow-Up By: 08/21/20 Additional Comments FU for need for full assessment/ MST screening
[2020-08-18] MEDS: cefTRIAXone/NS 2 GM/100 ML 2 GM/100 ML BAG IV SCH (21:59)
[2020-08-19 09:00] LABS: Hematocrit 34.1 % (35.5-45.6); Hemoglobin 11.2 gm/dl (11.8-15.2); Mean Corpuscular HGB Conc 33 % (32-34); Mean Corpuscular Volume 81 fl (84-94); Platelet Count 373 K/mm3 (140-440); Red Blood Count 4.22 M/mm3 (3.65-5.03); Red Cell Distribution Width 16.7 % (13.2-15.2)
[2020-08-19 09:27] LABS: BUN/Creatinine Ratio 17; Blood Urea Nitrogen 15 mg/dL (9-20); Hemolysis Index 3
--- NOTE | 2020-08-19 10:22 | Discharge Summary ---
Providers - Providers Date of Admission: 08/14/20 06:15 Date of discharge: 08/19/20 Attending physician: RIVKA COUCH 08/14/20 07:54 Consult to Dietitian/Nutrition [CONS] Routine Physician Instructions: Reason For Exam: Reason for Consult: Malnutrition Consult to Physician [CONS] Routine Comment: Consulting Provider: ASHISH AVILEZ Physician Instructions: Reason For Exam: CCM 08/14/20 08:03 Consult to Physician [CONS] Routine Comment: Consulting Provider: ESTHELA LAGOS Physician Instructions: Reason For Exam: COVID PUI 08/14/20 09:47 Consult to Wound/ET Nurse [CONS] Routine Reason For Exam: wound eval 08/17/20 08:02 Consult to Physician [CONS] Routine Comment: Consulting Provider: KUMAR BECK Physician Instructions: Reason For Exam: VAT's / mediastinoscopy with biopsy Primary care physician: CLINICAL PHARMACOLOGIST Hospitalization Reason for admission: pna Condition: Serious Hospital course: 35-year-old man past medical history HIV, HSV pneumonia, lower extremity discoloration presented to the hospital complaining of shortness of breath, headache, cough, fever. Reportedly this began approximate 1 day prior to admission. On admission, he was found to be febrile, septic nonresponsive to fluids and needing pressor support. He was admitted to the ICU. Covid testing was negative. Patient was noted to be febrile on admission to [facility] [place] with a white count of 4.1. The patient was admitted with diagnosis of acute sepsis secondary to right sided organizing pneumonia and HIV. The patient was started empirically on ceftriaxone and azithromycin. He was also treated with methylprednisolone as well. Patient had normal renal function, procalcitonin was 6.09. Blood cultures were found to be negative. The patient was seen by ID and pulmonary consultation. Patient underwent chest CTA that revealed no evidence of PE. However, masslike consolidation in the right hilum with associated adenopathy in the mediastinum and retroperitoneum. Concern for organizing pneumonia patchy airspace disease slightly worsened. Patient was continued on IV antibiotics and ID recommended that patient could be discharged on cefdinir 300 mg every 12 hours. Patient was back to his baseline respiratory status and will need follow-up with cardiothoracic surgery. Pulmonary recommends evaluation of mediastinopathy with mediastinoscopy/VATS procedure. I discussed the case with Dr. Beck who was able to see in his office on Thursday or Thursday. Dedicated discharge time 35 minutes Disposition: [id number] STILL A PATIENT Time spent for discharge: 35 - Discharge Diagnoses (1) Acute kidney injury Status: Acute (2) Acute respiratory failure with hypoxia Status: Acute (3) Pneumonia Status: Acute (4) Sepsis Status: Acute (5) HIV (human immunodeficiency virus infection) Status: Chronic Core Measure Documentation - Palliative Care Palliative Care/ Comfort Measures: Not Applicable - Core Measures Any of the following diagnoses?: none Exam - Constitutional Vitals: Temp Pulse Resp BP Pulse Ox 98.3 F 78 18 96/57 92 08/19/20 08:26 08/19/20 08:26 08/19/20 08:26 08/19/20 08:26 08/19/20 08:26 General appearance: Present: no acute distress, well-nourished - EENT Eyes: Present: PERRL ENT: hearing intact, clear oral mucosa - Neck Neck: Present: supple, normal ROM - Respiratory Respiratory effort: normal Respiratory: bilateral: CTA - Cardiovascular Heart Sounds: Present: S1 & S2. Absent: rub, click - Extremities Extremities: pulses symmetrical, No edema Peripheral Pulses: within normal limits - Abdominal General gastrointestinal: Present: soft, non-tender, non-distended, normal bowel sounds Male genitourinary: Present: normal - Integumentary Integumentary: Present: clear, warm, dry - Musculoskeletal Musculoskeletal: gait normal, strength equal bilaterally - Psychiatric Psychiatric: appropriate mood/affect, intact judgment & insight - Neurologic Neurologic: CNII-XII intact, moves all extremities Plan Activity: advance as tolerated Weight Bearing Status: Weight Bear as Tolerated Diet: regular Additional Instructions: Follow-up with Dr. Beck for evaluation of mediastinopathy--mediastinoscopy/VATS procedure. Office number [phone] Follow up with: KUMAR BECK MD [Staff Physician] - 48 Hours PRIMARY CARE, [Primary Care Provider] - 3-5 Days ESTHELA LAGOS MD [Staff Physician] - 7 Days Prescriptions: Cefdinir 300 mg PO BID #10 capsule Emtricitabine [Emtriva] 200 mg PO QDAY #30 capsule Atovaquone [Mepron] 750 mg PO BID 25 Days ml Famotidine [Pepcid] 20 mg PO BID #60 tablet Dolutegravir [Tivicay] 50 mg PO QDAY #30 tablet Tenofovir [Viread] 300 mg PO QDAY #30 tablet
[2020-08-19 10:24] LABS: Total Cells Counted 100
[2020-08-19 10:26] LABS: Giant Platelets Few; Hypochromasia Few; Platelet Estimate Consistent w Auto
[2020-08-19] MEDS: FAMOTIDINE 20 MG TAB PO SCH (11:31)
[2020-08-19] MEDS: EMTRICITABINE 200 MG CAP PO SCH (11:32)
[2020-08-19] MEDS: TENOFOVIR 300 MG TAB PO SCH (11:32)
[2020-08-19] MEDS: DOLUTEGRAVIR 50 MG TAB PO SCH (11:33)
[2020-08-19] MEDS: HEPARIN 5,000 UNIT/1 ML VIAL SUB-Q SCH (11:37)
[2020-08-19 12:34] VITALS: BP 98/62
[2020-08-19 16:44] LABS: HIV-1 RNA QN PCR 5.97 Log cps/mL
[2020-08-21 11:06] LABS: CD4/CD8 Ratio 0.09 (0.86-5.00)
== END 2020-08-19 13:50 | disposition home or self-care (01) | DRG 974 ==
LOC: ED → CC1 06:15 → 4A 08-16 14:08
PROVIDERS: ADMIT Hospitalist; ATTEND Hospitalist
PROC: 06HY33Z Insertion of Infusion Device into Lower Vein, Percutaneous Approach (ICD-10-PCS; principal; 2020-08-14)
DX: A41.9 Sepsis, unspecified organism (principal); J96.01 Acute respiratory failure with hypoxia; B20 Human immunodeficiency virus [HIV] disease; J18.9 Pneumonia, unspecified organism; E87.1 Hypo-osmolality and hyponatremia; Z20.822 Contact with and (suspected) exposure to COVID-19; N17.9 Acute kidney failure, unspecified; R59.1 Generalized enlarged lymph nodes; D64.9 Anemia, unspecified; Z79.899 Other long term (current) drug therapy
CPT/HCPCS: 36415; 71045; 71275; 78580; 80048; 80053; 81001; 82024; 82140; 82728; 82805; 82947; 82962; 83615; 84145; 85007; 85025; 85379; 85610; 86140; 87040; 87086; 87536; 93005; 93970; G0378; A9540; J0456; J0696; J1100; J1644; J1885; J2920; J7030; J7050; Q9967; U0003

== ENCOUNTER 2020-10-20 20:19 | Inpatient (IN) | payer OTHER ==
[2020-10-20] MEDS ORDERED: SODIUM CHLORIDE 0.9% 1000 ML 1,000 ML IV ONE (20:41)
--- NOTE | 2020-10-20 20:54 | Event Note ---
ED Screening Note Date of service: 10/20/20 Time: 20:52 ED Screening Note: hx HIV and hx HIV pneumonia Pt c/o cough. He states cough chronic but worsening in past 1 week. This initial assessment/diagnostic orders/clinical plan/treatment(s) is/are subject to change based on patients health status, clinical progression and re- assessment by fellow clinical providers in the ED. Further treatment and workup at subsequent clinical providers discretion. Patient/guardian urged not to elope from the ED as their condition may be serious if not clinically assessed and managed. Initial orders include: CBC CMP CXR EKG Trop
[2020-10-20 21:02] LABS: Basophils % (Auto) 0.3 % (0.0-1.8); Eosinophils # (Auto) 0.4 K/mm3 (0.0-0.4); Eosinophils % (Auto) 5.5 % (0.0-4.3); Hematocrit 29.9 % (35.5-45.6); Lymphocytes # (Auto) 1.3 K/mm3 (1.2-5.4); Lymphocytes % (Auto) 18.6 % (13.4-35.0); Mean Corpuscular HGB Conc 33 % (32-34); Mean Corpuscular Volume 81 fl (84-94); Monocytes # (Auto) 0.6 K/mm3 (0.0-0.8); Monocytes % (Auto) 8.8 % (0.0-7.3); Platelet Count 492 K/mm3 (140-440); Red Blood Count 3.69 M/mm3 (3.65-5.03); Red Cell Distribution Width 17.9 % (13.2-15.2)
--- NOTE | 2020-10-20 21:12 | Emergency Department Report ---
ED Shortness of Breath HPI - General Chief Complaint: Dyspnea/Respdistress Stated Complaint: COUGH;HEADACHE Time Seen by Provider: 10/20/20 20:57 Source: patient Mode of arrival: Ambulatory Limitations: No Limitations - History of Present Illness Initial Comments: Patient is 35 years old male with history of HIV, compliant with his medication and per patient report. Patient stated that his symptoms has been going on for a while however for the last few days became more worse. Patient stated that his shortness of breath is mainly when he lay flat however sometimes when he walks. 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 Patient denied any fever or chills. No chest pain, nausea or vomiting. Patient is complaining of bilateral lower extremity swelling. MD Complaint: shortness of breath, cough -: days(s) - Related Data Previous Rx's Medication Instructions Recorded Last Taken Type Ipratropium/Albuterol Sulfate 1 ampul IH Q6HR #120 ampul.neb 02/24/20 Unknown Rx [DUONEB *Not for PRN Use*] predniSONE [Deltasone] 20 mg PO QDAY #5 tablet 02/25/20 Unknown Rx Famotidine [Pepcid] 40 mg PO QHS #5 tablet 02/26/20 Unknown Rx diphenhydrAMINE [Benadryl CAP] 50 mg PO Q8HR PRN #14 capsule 02/26/20 Unknown Rx Dexamethasone [Taperdex] 1.5 mg PO DAILY 7 Days #1 tab.ds.pk 03/14/20 Unknown Rx Promethazine HCl [Promethazine TAB] 12.5 mg PO [id number] PRN #12 tab 05/09/20 Unknown Rx Atovaquone [Mepron] 750 mg PO BID 25 Days ml 08/19/20 Unknown Rx Cefdinir 300 mg PO BID #10 capsule 08/19/20 Unknown Rx Dolutegravir [Tivicay] 50 mg PO QDAY #30 tablet 08/19/20 Unknown Rx Emtricitabine [Emtriva] 200 mg PO QDAY #30 capsule 08/19/20 Unknown Rx Famotidine [Pepcid] 20 mg PO BID #60 tablet 08/19/20 Unknown Rx Tenofovir [Viread] 300 mg PO QDAY #30 tablet 08/19/20 Unknown Rx Allergies Allergy/AdvReac Type Severity Reaction Status Date / Time No Known Allergies Allergy Verified 12/02/19 14:17 ED Review of Systems ROS: Stated complaint: COUGH;HEADACHE Other details as noted in HPI Comment: All other systems reviewed and negative Constitutional: denies: chills, fever Respiratory: cough, orthopnea, shortness of breath, SOB with exertion, SOB at rest. denies: wheezing Cardiovascular: denies: chest pain, palpitations Gastrointestinal: denies: abdominal pain, nausea, vomiting Musculoskeletal: denies: back pain Neurological: denies: headache, weakness, numbness, paresthesias, confusion, abnormal gait ED Past Medical Hx - Past Medical History Previous Medical History?: Yes Hx Hypertension: No Hx Heart Attack/AMI: No Hx Congestive Heart Failure: No Hx Diabetes: No Hx Deep Vein Thrombosis: No Hx Pulmonary Embolism: No Hx Liver Disease: No Hx Renal Disease: No Hx Seizures: No Hx Psychiatric Treatment: No Hx Asthma: No Hx COPD: No Hx Tuberculosis: No Hx Dementia: No Hx HIV: Yes (ON ANTI-VIRAL'S) Additional medical history: PNA in December 2019, PNA in February 2020 - Surgical History Past Surgical History?: No Hx Coronary Stent: No Hx Pacemaker: No Hx Internal Defibrillator: No - Social History Smoking Status: Never Smoker Substance Use Type: None - Medications Home Medications: Home Medications Medication Instructions Recorded Confirmed Last Taken Type Ipratropium/Albuterol Sulfate 1 ampul IH Q6HR #120 ampul.neb 02/24/20 08/17/20 Unknown Rx [DUONEB *Not for PRN Use*] predniSONE [Deltasone] 20 mg PO QDAY #5 tablet 02/25/20 08/17/20 Unknown Rx Famotidine [Pepcid] 40 mg PO QHS #5 tablet 02/26/20 08/17/20 Unknown Rx diphenhydrAMINE [Benadryl CAP] 50 mg PO Q8HR PRN #14 capsule 02/26/20 08/17/20 Unknown Rx Dexamethasone [Taperdex] 1.5 mg PO DAILY 7 Days #1 tab.ds.pk 03/14/20 08/17/20 Unknown Rx Promethazine HCl [Promethazine TAB] 12.5 mg PO [id number] PRN #12 tab 05/09/20 08/17/20 Unknown Rx Atovaquone [Mepron] 750 mg PO BID 25 Days ml 08/19/20 Unknown Rx Cefdinir 300 mg PO BID #10 capsule 08/19/20 Unknown Rx Dolutegravir [Tivicay] 50 mg PO QDAY #30 tablet 08/19/20 Unknown Rx Emtricitabine [Emtriva] 200 mg PO QDAY #30 capsule 08/19/20 Unknown Rx Famotidine [Pepcid] 20 mg PO BID #60 tablet 08/19/20 Unknown Rx Tenofovir [Viread] 300 mg PO QDAY #30 tablet 08/19/20 Unknown Rx ED Physical Exam - General Limitations: No Limitations General appearance: alert, in no apparent distress - Head Head exam: Present: atraumatic, normocephalic, normal inspection - Eye Eye exam: Present: normal appearance, PERRL - ENT ENT exam: Present: normal exam, normal orophraynx, mucous membranes moist - Neck Neck exam: Present: normal inspection, full ROM. Absent: tenderness, meningismus - Respiratory Respiratory exam: Present: normal lung sounds bilaterally - Cardiovascular Cardiovascular Exam: Present: regular rate, normal rhythm, normal heart sounds - GI/Abdominal GI/Abdominal exam: Present: soft, normal bowel sounds. Absent: distended, tenderness, guarding, rebound, rigid, organomegaly, mass, bruit, pulsatile mass, hernia - Extremities Exam Extremities exam: Present: pedal edema. Absent: calf tenderness - Back Exam Back exam: Present: normal inspection, full ROM. Absent: CVA tenderness (R), C VA tenderness (L) - Neurological Exam Neurological exam: Present: alert, oriented X3, CN II-XII intact, normal gait, reflexes normal. Absent: motor sensory deficit - Psychiatric Psychiatric exam: Present: normal mood - Skin Skin exam: Present: warm, intact, normal color ED Course Vital Signs 10/20/20 10/20/20 10/20/20 20:26 21:18 21:31 Temperature 98.4 F Pulse Rate 99 H 95 H 94 H Respiratory 18 15 14 Rate Blood Pressure 117/63 107/63 O2 Sat by Pulse 93 96 92 Oximetry 10/20/20 10/20/20 10/20/20 21:45 22:01 22:15 Temperature Pulse Rate 95 H 93 H 100 H Respiratory 21 20 25 H Rate Blood Pressure 106/67 106/67 86/41 O2 Sat by Pulse 93 95 91 Oximetry 10/20/20 10/20/20 10/20/20 22:31 22:45 23:01 Temperature Pulse Rate 93 H 100 H 107 H Respiratory 16 20 20 Rate Blood Pressure 86/41 114/77 114/77 O2 Sat by Pulse 95 93 94 Oximetry 10/20/20 23:13 Temperature Pulse Rate 99 H Respiratory 16 Rate Blood Pressure 113/73 O2 Sat by Pulse 94 Oximetry ED Medical Decision Making - Lab Data Result diagrams: 10/21/20 06:51 10/22/20 06:32 - EKG Data -: EKG Interpreted by Me EKG shows normal: sinus rhythm Rate: normal - EKG Data Interpretation: no acute changes - Radiology Data Radiology results: report reviewed - Medical Decision Making Patient is 35 years old male with history of HIV, compliant with his medication and per patient report. Patient stated that his symptoms has been going on for a while however for the last few days became more worse. Patient stated that his shortness of breath is mainly when he lay flat however sometimes when he walks. 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 Patient denied any fever or chills. No chest pain, nausea or vomiting. Patient is complaining of bilateral lower extremity swelling. Labs reviewed and is unremarkable. Chest x-ray showed bilateral infiltrate. Patient received Rocephin 1 g, Zithromax 500 mg and Decadron 8 mg IV. COVID-19 test has been ordered. I discussed the patient with Dr. Roque, he agreed to admit the patient to medical service for further management. Critical care attestation.: If time is entered above; I have spent that time in minutes in the direct care of this critically ill patient, excluding procedure time. ED Disposition Clinical Impression: Bilateral pneumonia, Shortness of breath Disposition: OP ADMIT IP TO THIS HOSP Is pt being admited?: Yes Condition: Stable
--- NOTE | 2020-10-20 21:15 | XRay Report ---
XR chest routine 2V INDICATION / CLINICAL INFORMATION: Dyspnea. COMPARISON: 08/14/2020 FINDINGS: SUPPORT DEVICES: None. HEART /PULMONARY VASCULATURE: No significant abnormality. LUNGS / PLEURA: Worsening dense airspace consolidation of the right mid and lower lung, less so withi n the left mid and lower lung. No sizable pleural effusion. No pneumothorax. ADDITIONAL FINDINGS: No significant additional findings. IMPRESSION: Worsening dense airspace consolidation of the right greater than left perihilar and basilar regions. Signer Name: Chuy Ibrahim MD Signed: 10/20/2020 9:10 PM Workstation Name: [id number]
[2020-10-20 21:17] LABS: Alanine Aminotransferase 8 units/L (7-56); Albumin 3.3 g/dL (3.9-5); BUN/Creatinine Ratio 13; Blood Urea Nitrogen 10 mg/dL (9-20); Calcium 8.3 mg/dL (8.4-10.2); Hemolysis Index 24
[2020-10-20] MEDS ORDERED: SODIUM CHLORIDE 0.9% 1000 ML 1,000 ML ONE (21:19)
[2020-10-20] MEDS ORDERED: cefTRIAXone/NS 1 GM/50 ML 1 GM/50 ML BAG IV ONE (21:47)
[2020-10-20] MEDS ORDERED: AZITHROMYCIN/NS 500 MG/250 ML 500 MG/250 ML BAG IV ONE (21:47)
[2020-10-20] MEDS ORDERED: dexAMETHasone 4 MG/ML VIAL IV ONE (21:47)
[2020-10-20] MEDS ORDERED: ACETAMINOPHEN 325 MG TAB PO PRN (22:35)
[2020-10-20] MEDS ORDERED: ONDANSETRON 4 MG/2 ML INJ IV PRN (22:35)
[2020-10-20] MEDS ORDERED: MORPHINE 2 MG/1 ML INJ IV PRN (22:35)
[2020-10-20] MEDS ORDERED: MAGNESIUM HYDROXIDE (MOM) ORAL LIQD UDC PO PRN (22:35)
--- NOTE | 2020-10-20 22:42 | History and Physical Report ---
History of Present Illness Date of examination: 10/20/20 Date of admission: 10/20/20 22:10 Chief complaint: Cough Shortness of Breath History of present illness: 35-year-old male with known history of HIV presenting to the emergency room today complaining of shortness of breath and cough which has been ongoing for the past few days. 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 He denies any fever or chills, no chest pain, no nausea vomiting and no abdominal pain. He denies any sick contacts and no recent travel, denies any contact with anyone with COVID-19. Patient has been compliant with his HIV medication. Last CD4 counts is unknown but states that it was within normal limits when it was checked in August 2020. He follows up with his infectious disease physician. Upon arrival in the emergency room, he was slightly hypoxic. Work-up in the emergency room today shows bilateral infiltrate on chest x-ray. Patient has been admitted with pneumonia to rule out COVID-19. Past History Past Medical History: other (HIV positive) Past Surgical History: No surgical history Social history: no significant social history Family history: no significant family history Medications and Allergies Allergies Allergy/AdvReac Type Severity Reaction Status Date / Time No Known Allergies Allergy Verified 12/02/19 14:17 Home Medications Medication Instructions Recorded Confirmed Last Taken Type Ipratropium/Albuterol Sulfate 1 ampul IH Q6HR #120 ampul.neb 02/24/20 08/17/20 Unknown Rx [DUONEB *Not for PRN Use*] predniSONE [Deltasone] 20 mg PO QDAY #5 tablet 02/25/20 08/17/20 Unknown Rx Famotidine [Pepcid] 40 mg PO QHS #5 tablet 02/26/20 08/17/20 Unknown Rx diphenhydrAMINE [Benadryl CAP] 50 mg PO Q8HR PRN #14 capsule 02/26/20 08/17/20 Unknown Rx Dexamethasone [Taperdex] 1.5 mg PO DAILY 7 Days #1 tab.ds.pk 03/14/20 08/17/20 Unknown Rx Promethazine HCl [Promethazine TAB] 12.5 mg PO [id number] PRN #12 tab 05/09/20 08/17/20 Unknown Rx Atovaquone [Mepron] 750 mg PO BID 25 Days ml 08/19/20 Unknown Rx Cefdinir 300 mg PO BID #10 capsule 08/19/20 Unknown Rx Dolutegravir [Tivicay] 50 mg PO QDAY #30 tablet 08/19/20 Unknown Rx Emtricitabine [Emtriva] 200 mg PO QDAY #30 capsule 08/19/20 Unknown Rx Famotidine [Pepcid] 20 mg PO BID #60 tablet 08/19/20 Unknown Rx Tenofovir [Viread] 300 mg PO QDAY #30 tablet 08/19/20 Unknown Rx Active Meds: Active Medications Acetaminophen (Acetaminophen 325 Mg Tab) 650 mg PO Q4H PRN PRN Reason: Pain MILD(1-3)/Fever >100.5/LIU Azithromycin (Zithromax/Ns) 500 mg in 250 mls @ 250 mls/hr IV ONCE ONE; Protocol Stop: 10/20/20 22:46 Last Admin: 10/20/20 21:58 Dose: 250 mls/hr Documented by: Sodium Chloride (Nacl 0.9% 1000 Ml) 1,000 mls @ 75 mls/hr IV DIRECT CEFERINO Ceftriaxone Sodium (Rocephin/Ns 2 Gm/100 Ml) 2 gm in 100 mls @ 200 mls/hr IV Q24H CEFERINO; Protocol Azithromycin (Zithromax/Ns) 500 mg in 250 mls @ 250 mls/hr IV Q24H CEFERINO; Protocol Magnesium Hydroxide (Magnesium Hydroxide (Mom) Oral Liqd Udc) 30 ml PO Q4H PRN PRN Reason: Constipation Morphine Sulfate (Morphine 2 Mg/1 Ml Inj) 2 mg IV Q4H PRN PRN Reason: Pain, Moderate (4-6) Ondansetron HCl (Ondansetron 4 Mg/2 Ml Inj) 4 mg IV Q8H PRN PRN Reason: Nausea And Vomiting Sodium Chloride (Sodium Chloride 0.9% 10 Ml Flush Syringe) 10 ml IV BID CEFERINO Sodium Chloride (Sodium Chloride 0.9% 10 Ml Flush Syringe) 10 ml IV PRN PRN PRN Reason: LINE FLUSH Review of Systems Constitutional: no fever, no chills Ears, nose, mouth and throat: no nasal congestion, no sore throat Cardiovascular: no chest pain, no palpitations Respiratory: cough, shortness of breath Gastrointestinal: no abdominal pain, no nausea, no vomiting, no diarrhea Genitourinary Male: no dysuria, no hematuria, no nocturia Musculoskeletal: no neck pain, no low back pain Integumentary: no rash, no pruritis Neurological: no headaches, no confusion Psychiatric: no anxiety, no depression Exam - Constitutional Vitals: Temp Pulse Resp BP Pulse Ox 98.4 F 95 H 21 106/67 93 10/20/20 20:26 10/20/20 21:45 10/20/20 21:45 10/20/20 21:45 10/20/20 21:45 General appearance: Present: no acute distress, well-nourished - EENT Eyes: Present: PERRL, EOM intact. Absent: scleral icterus ENT: hearing intact, clear oral mucosa, dentition normal - Neck Neck: Present: supple, normal ROM - Respiratory Respiratory effort: normal Respiratory: bilateral: diminished - Cardiovascular Rhythm: regular Heart Sounds: Present: S1 & S2. Absent: gallop, systolic murmur, diastolic murmur, rub, click - Extremities Extremities: no ischemia, pulses intact, pulses symmetrical, No edema, normal temperature, normal color, Full ROM Peripheral Pulses: within normal limits - Abdominal General gastrointestinal: Present: soft, non-tender, non-distended, normal bowel sounds. Absent: mass - Integumentary Integumentary: Present: clear, warm, dry. Absent: rash - Musculoskeletal Musculoskeletal: strength equal bilaterally - Psychiatric Psychiatric: appropriate mood/affect, intact judgment & insight, memory intact, cooperative - Neurologic Neurologic: CNII-XII intact, no focal deficits, moves all extremities HEART Score - HEART Score Troponin: Troponin T < 0.010 ng/mL (0.00-0.029) 10/20/20 20:41 Results - Labs CBC & Chem 7: 10/20/20 20:41 10/20/20 22:43 Labs: Abnormal lab results 10/20/20 10/20/20 Range/Units 20:41 20:41 Hgb 10.0 L (11.8-15.2) gm/dl Hct 29.9 L (35.5-45.6) % MCV 81 L (84-94) fl MCH 27 L (28-32) pg RDW 17.9 H (13.2-15.2) % Plt Count 492 H (140-440) K/mm3 [place] % (Auto) 8.8 H (0.0-7.3) % Eos % (Auto) 5.5 H (0.0-4.3) % Sodium 136 L (137-145) mmol/L Calcium 8.3 L (8.4-10.2) mg/dL Albumin 3.3 L (3.9-5) g/dL Assessment and Plan - Patient Problems (1) Bilateral pneumonia Current Visit: Yes Status: Acute Plan to address problem: Patient placed on empiric IV antibiotics. We also rule out for COVID-19. Will await blood culture results. (2) Acute respiratory failure with hypoxia Current Visit: No Status: Acute Plan to address problem: Possibly secondary to the underlying pneumonia. We will keep O2 saturation greater or equal to 92%. (3) HIV (human immunodeficiency virus infection) Current Visit: No Status: Chronic Plan to address problem: CD4 counts has been within normal limits when it was last checked in August 2020. Patient has been compliant with his HIV medications. He follows up with his infectious disease physician. (4) DVT prophylaxis Current Visit: No Status: Acute Plan to address problem: Patient placed on subcutaneous Lovenox. (5) Full code status Current Visit: No Status: Acute Plan to address problem: Patient is full code.
[2020-10-21 03:16] LABS: C-Reactive Protein 8.1 mg/dL (0.00-1.30)
[2020-10-21 07:40] LABS: Basophils % (Auto) 0.3 % (0.0-1.8); Eosinophils % (Auto) 0.1 % (0.0-4.3); Hematocrit 30.3 % (35.5-45.6); Lymphocytes # (Auto) 0.8 K/mm3 (1.2-5.4); Lymphocytes % (Auto) 20.4 % (13.4-35.0); Mean Corpuscular HGB Conc 33 % (32-34); Mean Corpuscular Volume 80 fl (84-94); Monocytes # (Auto) 0.1 K/mm3 (0.0-0.8); Monocytes % (Auto) 2.1 % (0.0-7.3); Platelet Count 513 K/mm3 (140-440); Red Blood Count 3.77 M/mm3 (3.65-5.03); Red Cell Distribution Width 17.9 % (13.2-15.2)
[2020-10-21 08:00] LABS: INR 1.11 (0.87-1.13)
[2020-10-21 08:31] LABS: Blood Urea Nitrogen 9 mg/dL (9-20); Calcium 8.7 mg/dL (8.4-10.2); Hemolysis Index 3
[2020-10-21 08:41] LABS: BUN/Creatinine Ratio 13
[2020-10-21] MEDS: dexAMETHasone 4 MG/ML VIAL IV SCH (09:27)
--- NOTE | 2020-10-21 10:59 | Progress Note ---
Assessment and Plan - Patient Problems (1) Bilateral pneumonia Current Visit: Yes Status: Acute Plan to address problem: COVID-19 pneumonia versus PCP versus community-acquired pneumonia. Patient already started on Rocephin and azithromycin. Previously given Bactrim empirically for possible PCP. Inflammatory markers consistent with COVID-19. If positive will start patient on remdesivir and dexamethasone. Patient continues to require supportive O2. (2) Acute respiratory failure with hypoxia Current Visit: No Status: Acute Plan to address problem: Secondary to COVID-19 pneumonia. Continue supportive care initiate remdesivir dexamethasone. ID following. (3) HIV antibody positive Current Visit: No Status: Acute Plan to address problem: Resume antiretroviral medications. Subjective Date of service: 10/21/20 Principal diagnosis: Bilateral pneumonia Interval history: 35-year-old male with history of HIV presents with progressive shortness of breath dyspnea on exertion associated with nonproductive cough for 3 to 4 days. Work-up in ED patient found to be hypoxemic requiring 2 L of O2 chest x-ray revealed bilateral pneumonia. Patient therefore admitted for treatment of hypoxic respiratory failure and pneumonia. At present patient remains hypoxic however afebrile. Stable with 2 L of O2. Covid serology pending patient today resting comfortably. Hospital course complicated by patient removed his oxygen and sats decreased to 86. Objective - Constitutional Vitals: Vital Signs - 12hr 10/20/20 10/20/20 10/20/20 22:01 22:15 22:31 Temperature Pulse Rate 93 H 100 H 93 H Respiratory 20 25 H 16 Rate Blood Pressure 106/67 86/41 86/41 Blood Pressure [Right] O2 Sat by Pulse 95 91 95 Oximetry 10/20/20 10/20/20 10/20/20 22:45 23:01 23:13 Temperature Pulse Rate 100 H 107 H 99 H Respiratory 20 20 16 Rate Blood Pressure 114/77 114/77 113/73 Blood Pressure [Right] O2 Sat by Pulse 93 94 94 Oximetry 10/20/20 10/21/20 23:39 04:36 Temperature 98.5 F 97.8 F Pulse Rate 98 H 80 Respiratory 28 H 24 Rate Blood Pressure 96/59 Blood Pressure 119/80 [Right] O2 Sat by Pulse 92 98 Oximetry General appearance: Present: no acute distress, well-nourished - EENT Eyes: PERRL, EOM intact ENT: hearing intact, clear oral mucosa Ears: bilateral: normal - Neck Neck: supple, normal ROM - Respiratory Respiratory effort: normal Respiratory: bilateral: CTA - Breasts Breasts: normal - Cardiovascular Rhythm: regular Heart Sounds: Present: S1 & S2. Absent: gallop, rub Extremities: pulses intact, No edema, normal color, Full ROM - Gastrointestinal General gastrointestinal: Present: soft, non-tender, non-distended, normal bowel sounds - Genitourinary Male genitourinary: normal - Integumentary Integumentary: clear, warm, dry - Musculoskeletal Musculoskeletal: 1, strength equal bilaterally - Neurologic Neurologic: moves all extremities - Psychiatric Psychiatric: memory intact, appropriate mood/affect, intact judgment & insight - Labs CBC & Chem 7: 10/21/20 06:51 10/21/20 06:51 Labs: Abnormal lab results 10/20/20 10/20/20 10/20/20 Range/Units 20:41 20:41 22:43 WBC (4.5-11.0) K/mm3 Hgb 10.0 L (11.8-15.2) gm/dl Hct 29.9 L (35.5-45.6) % MCV 81 L (84-94) fl MCH 27 L (28-32) pg RDW 17.9 H (13.2-15.2) % Plt Count 492 H (140-440) K/mm3 [place] % (Auto) 8.8 H (0.0-7.3) % Eos % (Auto) 5.5 H (0.0-4.3) % Lymph # (Auto) (1.2-5.4) K/mm3 Seg Neutrophils % (40.0-70.0) % D-Dimer 871.02 H (0-234) ng/mlDDU Sodium 136 L (137-145) mmol/L Creatinine (0.8-1.3) mg/dL Glucose (75-100) mg/dL Calcium 8.3 L (8.4-10.2) mg/dL Lactate Dehydrogenase (91-180) units/L C-Reactive Protein (0.00-1.30) mg/dL Albumin 3.3 L (3.9-5) g/dL 10/20/20 10/21/20 10/21/20 Range/Units 22:43 06:51 06:51 WBC 4.0 L (4.5-11.0) K/mm3 Hgb 10.0 L (11.8-15.2) gm/dl Hct 30.3 L (35.5-45.6) % MCV 80 L (84-94) fl MCH 27 L (28-32) pg RDW 17.9 H (13.2-15.2) % Plt Count 513 H (140-440) K/mm3 [place] % (Auto) (0.0-7.3) % Eos % (Auto) (0.0-4.3) % Lymph # (Auto) 0.8 L (1.2-5.4) K/mm3 Seg Neutrophils % 77.1 H (40.0-70.0) % D-Dimer (0-234) ng/mlDDU Sodium 136 L (137-145) mmol/L Creatinine 0.7 L (0.8-1.3) mg/dL Glucose 129 H (75-100) mg/dL Calcium (8.4-10.2) mg/dL Lactate Dehydrogenase 190 H (91-180) units/L C-Reactive Protein 8.10 H (0.00-1.30) mg/dL Albumin (3.9-5) g/dL HEART Score - HEART Score Troponin: Troponin T < 0.010 ng/mL (0.00-0.029) 10/21/20 06:51
--- NOTE | 2020-10-21 12:07 | Consultation ---
History of Present Illness - Reason for Consult Consult date: 10/21/20 pneumonia, HIV Requesting physician: DEMETRIO SHAIKH - History of Present Illness The patient is a 35-year-old male with HIV came into the emergency room with cough, shortness of breath going on for a few days. Upon evaluation in the ER, noted to have hypoxia, chest x-ray showed bilateral infiltrates, currently on 2 L oxygen by nasal cannula. No fever here. Labs revealed mild leukopenia, thrombocytosis, D-dimer 871, ferritin 204, LDH 190, CRP 8.1. With regards to his HIV patient reports compliance with his HIV medications, supposed to be on Biktarvy, follows up with Dr. Garcia. Review of Systems: reviewed in the chart, unable to obtain, minimize risk of transmission Past History Past Medical History: other (HIV positive) Past Surgical History: No surgical history Social history: no significant social history Family history: no significant family history Medications and Allergies Allergies Allergy/AdvReac Type Severity Reaction Status Date / Time No Known Allergies Allergy Verified 12/02/19 14:17 Home Medications Medication Instructions Recorded Confirmed Last Taken Type Ipratropium/Albuterol Sulfate 1 ampul IH Q6HR #120 ampul.neb 02/24/20 08/17/20 Unknown Rx [DUONEB *Not for PRN Use*] predniSONE [Deltasone] 20 mg PO QDAY #5 tablet 02/25/20 08/17/20 Unknown Rx Famotidine [Pepcid] 40 mg PO QHS #5 tablet 02/26/20 08/17/20 Unknown Rx diphenhydrAMINE [Benadryl CAP] 50 mg PO Q8HR PRN #14 capsule 02/26/20 08/17/20 Unknown Rx Dexamethasone [Taperdex] 1.5 mg PO DAILY 7 Days #1 tab.ds.pk 03/14/20 08/17/20 Unknown Rx Promethazine HCl [Promethazine TAB] 12.5 mg PO [id number] PRN #12 tab 05/09/20 08/17/20 Unknown Rx Atovaquone [Mepron] 750 mg PO BID 25 Days ml 08/19/20 Unknown Rx Cefdinir 300 mg PO BID #10 capsule 08/19/20 Unknown Rx Dolutegravir [Tivicay] 50 mg PO QDAY #30 tablet 08/19/20 Unknown Rx Emtricitabine [Emtriva] 200 mg PO QDAY #30 capsule 08/19/20 Unknown Rx Famotidine [Pepcid] 20 mg PO BID #60 tablet 08/19/20 Unknown Rx Tenofovir [Viread] 300 mg PO QDAY #30 tablet 08/19/20 Unknown Rx Active Meds: Active Medications Acetaminophen (Acetaminophen 325 Mg Tab) 650 mg PO Q4H PRN PRN Reason: Pain MILD(1-3)/Fever >100.5/LIU Dexamethasone (Dexamethasone 4 Mg/Ml Vial) 6 mg IV DAILY [facility] Stop: 10/29/20 10:01 Last Admin: 10/21/20 09:27 Dose: 6 mg Documented by: Enoxaparin Sodium (Enoxaparin 40 Mg/0.4 Ml Inj) 40 mg SUB-Q QDAY@2200 CEFERINO; Protocol Sodium Chloride (Nacl 0.9% 1000 Ml) 1,000 mls @ 75 mls/hr IV DIRECT CEFERINO Ceftriaxone Sodium (Rocephin/Ns 2 Gm/100 Ml) 2 gm in 100 mls @ 200 mls/hr IV Q24H CEFERINO; Protocol Azithromycin (Zithromax/Ns) 500 mg in 250 mls @ 250 mls/hr IV Q24H CEFERINO; Protocol Magnesium Hydroxide (Magnesium Hydroxide (Mom) Oral Liqd Udc) 30 ml PO Q4H PRN PRN Reason: Constipation Morphine Sulfate (Morphine 2 Mg/1 Ml Inj) 2 mg IV Q4H PRN PRN Reason: Pain, Moderate (4-6) Ondansetron HCl (Ondansetron 4 Mg/2 Ml Inj) 4 mg IV Q8H PRN PRN Reason: Nausea And Vomiting Sodium Chloride (Sodium Chloride 0.9% 10 Ml Flush Syringe) 10 ml IV BID [facility] Last Admin: 10/21/20 09:27 Dose: 10 ml Documented by: Sodium Chloride (Sodium Chloride 0.9% 10 Ml Flush Syringe) 10 ml IV PRN PRN PRN Reason: LINE FLUSH Physical Examination - Physical Exam Narrative exam: Physical Exam (reviewed in chart to minimize risk of transmission) Constitutional: deferred Head, Ears, Nose: deferred Eyes: deferred Neck: deferred Oral: deferred Cardiovascular: deferred Respiratory: deferred GI: deferred Musculoskeletal: deferred Skin: deferred Hem/Lymphatic: deferred Psych: deferred Neurological: deferred - Constitutional Vitals: Vital Signs Temp Pulse Resp BP Pulse Ox 97.8 F 80 24 96/59 98 10/21/20 04:36 10/21/20 04:36 10/21/20 04:36 10/21/20 04:36 10/21/20 04:36 Temperature -Last 24 Hours Temperature 97.8 F Temperature 98.5 F Temperature 98.4 F Results - Labs CBC & Chem 7: 10/21/20 06:51 10/21/20 06:51 Labs: Abnormal lab results 10/20/20 10/20/20 10/20/20 Range/Units 20:41 20:41 22:43 WBC (4.5-11.0) K/mm3 Hgb 10.0 L (11.8-15.2) gm/dl Hct 29.9 L (35.5-45.6) % MCV 81 L (84-94) fl MCH 27 L (28-32) pg RDW 17.9 H (13.2-15.2) % Plt Count 492 H (140-440) K/mm3 [place] % (Auto) 8.8 H (0.0-7.3) % Eos % (Auto) 5.5 H (0.0-4.3) % Lymph # (Auto) (1.2-5.4) K/mm3 Seg Neutrophils % (40.0-70.0) % D-Dimer 871.02 H (0-234) ng/mlDDU Sodium 136 L (137-145) mmol/L Creatinine (0.8-1.3) mg/dL Glucose (75-100) mg/dL Calcium 8.3 L (8.4-10.2) mg/dL Lactate Dehydrogenase (91-180) units/L C-Reactive Protein (0.00-1.30) mg/dL Albumin 3.3 L (3.9-5) g/dL 10/20/20 10/21/20 10/21/20 Range/Units 22:43 06:51 06:51 WBC 4.0 L (4.5-11.0) K/mm3 Hgb 10.0 L (11.8-15.2) gm/dl Hct 30.3 L (35.5-45.6) % MCV 80 L (84-94) fl MCH 27 L (28-32) pg RDW 17.9 H (13.2-15.2) % Plt Count 513 H (140-440) K/mm3 [place] % (Auto) (0.0-7.3) % Eos % (Auto) (0.0-4.3) % Lymph # (Auto) 0.8 L (1.2-5.4) K/mm3 Seg Neutrophils % 77.1 H (40.0-70.0) % D-Dimer (0-234) ng/mlDDU Sodium 136 L (137-145) mmol/L Creatinine 0.7 L (0.8-1.3) mg/dL Glucose 129 H (75-100) mg/dL Calcium (8.4-10.2) mg/dL Lactate Dehydrogenase 190 H (91-180) units/L C-Reactive Protein 8.10 H (0.00-1.30) mg/dL Albumin (3.9-5) g/dL - Imaging and Cardiology Chest x-ray: report reviewed, image reviewed (b/l pneumonia) Assessment and Plan Cultures: SARS CoV2 PCR: Pending 10/20/2020 blood culture: In process A/P: 35-year-old male with HIV with: #Bilateral pneumonia: COVID-19 versus PCP pneumonia v/s CAP. #Acute hypoxic respiratory failure: On supplemental oxygen #HIV and AIDS: Supposed to be on Biktarvy, follows with Dr. Garcia however last viral load here in August 2020 was 925K, CD4 count was only 27, 4% suggestive of non-compliance with meds. #Leukopenia: Could be from HIV or COVID-19. Recs: -Continue empiric antibiotics for now: Ceftriaxone, azithromycin pending procalcitonin -Follow-up COVID-19 PCR, if positive would initiate Remdesivir and continue Decadron -1 3 beta D glucan ordered given possibility of PCP pneumonia -Empiric IV Bactrim ordered -HIV RNA PCR and CD4 count ordered -Continue Biktarvy, therapeutic interchange for formulary to tenofovir, emtricitabine and dolutegravir Dr. Garcia taking over tomorrow León Velásquez MD, FACP [facility] O: [phone] F: [phone]
[2020-10-21] MEDS ORDERED: NON-FORMULARY EACH (Biktarvy 1 TAB) PO SCH (12:15)
[2020-10-21] MEDS: DEXTROSE 5% IV SCH ×2 (13:08→17:41)
[2020-10-21] MEDS: WATER IV SCH ×2 (13:08→17:41)
[2020-10-21] MEDS: SMX IV SCH ×2 (13:08→17:41)
[2020-10-21] MEDS: TMP IV SCH ×2 (13:08→17:41)
[2020-10-21 14:45] LABS: Alanine Aminotransferase 6 units/L (7-56); Albumin 3.1 g/dL (3.9-5); Blood Urea Nitrogen 9 mg/dL (9-20); Calcium 8.6 mg/dL (8.4-10.2); Hemolysis Index 4
[2020-10-21 14:53] LABS: BUN/Creatinine Ratio 13
[2020-10-21] MEDS ORDERED: SODIUM CHLORIDE 0.9% 50 ML IVPB IV SCH (15:00)
[2020-10-21] MEDS ORDERED: REMDESIVIR 200 MG in SODIUM CHLORIDE 0.9% 250ML 250 ML IV ONE (15:00)
[2020-10-21] MEDS ORDERED: REMDESIVIR 100 MG VIAL IV ONE (15:00)
[2020-10-21] MEDS: SODIUM CHLORIDE 0.9% 1000 ML 1,000 ML IV SCH (15:59)
[2020-10-21] MEDS: DOLUTEGRAVIR 50 MG TAB PO SCH (16:00)
[2020-10-21] MEDS: EMTRICITABINE 200 MG CAP PO SCH (16:00)
[2020-10-21] MEDS: SODIUM CHLORIDE 0.9% 50 ML IVPB IV SCH (16:00)
[2020-10-21] MEDS: TENOFOVIR 300 MG TAB PO SCH (16:00)
[2020-10-21] MEDS: ENOXAPARIN 40 MG/0.4 ML INJ SUB-Q SCH (21:23)
[2020-10-21] MEDS: AZITHROMYCIN 250 MG TAB PO SCH (21:23)
[2020-10-21] MEDS ORDERED: AZITHROMYCIN/NS 500 MG/250 ML 500 MG/250 ML BAG IV SCH (22:00)
[2020-10-21] MEDS: cefTRIAXone/NS 2 GM/100 ML 2 GM/100 ML BAG IV SCH (22:26)
[2020-10-22] MEDS: WATER IV SCH ×5 (01:05→22:33)
[2020-10-22] MEDS: TMP IV SCH ×5 (01:05→22:33)
[2020-10-22] MEDS: DEXTROSE 5% IV SCH ×5 (01:05→22:33)
[2020-10-22] MEDS: SMX IV SCH ×5 (01:05→22:33)
[2020-10-22 07:46] LABS: Alanine Aminotransferase 6 units/L (7-56); Albumin 3.2 g/dL (3.9-5); BUN/Creatinine Ratio 10; Blood Urea Nitrogen 9 mg/dL (9-20); Calcium 8.6 mg/dL (8.4-10.2); Hemolysis Index 0
--- NOTE | 2020-10-22 08:01 | Progress Note ---
Assessment and Plan - Patient Problems (1) Bilateral pneumonia Current Visit: Yes Status: Acute Plan to address problem: Patient with COVID-19 pneumonia. Continue remdesivir started yesterday evening. Continue systemic steroid dexamethasone for severe COVID-19 pneumonia. Follow inflammatory markers every 48 hours. Continue supplemental care with oxygen Educated on proning Consider continue need for further antibiotic coverage. Vitamin C zinc, vitamin D (2) Acute respiratory failure with hypoxia Current Visit: No Status: Acute Plan to address problem: Secondary to COVID-19 pneumonia severe sepsis Oxygen supplementation. Cough suppression. (3) HIV antibody positive Current Visit: No Status: Acute Plan to address problem: Resume antiretroviral medications. There was some questions about compliance with medications. Will resume medications. ID following. Subjective Date of service: 10/22/20 Principal diagnosis: Bilateral pneumonia Interval history: 35-year-old male with history of HIV presents with progressive shortness of breath dyspnea on exertion associated with nonproductive cough for 3 to 4 days. Work-up in ED patient found to be hypoxemic requiring 2 L of O2 chest x-ray revealed bilateral pneumonia. Patient therefore admitted for treatment of hypoxic respiratory failure and pneumonia. At present patient remains hypoxic however afebrile. Stable with 2 L of O2. Covid serology pending patient today resting comfortably. Hospital course complicated by patient removed his oxygen and sats decreased to 86. 10/22 patient remains hypoxic with room air. Complains today of worsening productive cough. Yesterday positive for COVID-19. Objective - Constitutional Vitals: Vital Signs - 12hr 10/21/20 10/22/20 21:16 04:26 Temperature 97.8 F 98.1 F Pulse Rate 86 90 Respiratory 24 18 Rate Blood Pressure 99/56 103/55 O2 Sat by Pulse 92 92 Oximetry General appearance: Present: no acute distress, well-nourished - EENT Eyes: PERRL, EOM intact ENT: hearing intact, clear oral mucosa Ears: bilateral: normal - Neck Neck: supple, normal ROM - Respiratory Respiratory effort: normal Respiratory: bilateral: CTA - Breasts Breasts: normal - Cardiovascular Rhythm: regular Heart Sounds: Present: S1 & S2. Absent: gallop, rub Extremities: pulses intact, No edema, normal color, Full ROM - Gastrointestinal General gastrointestinal: Present: soft, non-tender, non-distended, normal bowel sounds - Genitourinary Male genitourinary: normal - Integumentary Integumentary: clear, warm, dry - Musculoskeletal Musculoskeletal: 1, strength equal bilaterally - Neurologic Neurologic: moves all extremities - Psychiatric Psychiatric: memory intact, appropriate mood/affect, intact judgment & insight - Labs CBC & Chem 7: 10/21/20 06:51 10/22/20 06:32 Labs: Abnormal lab results 10/21/20 10/21/20 10/21/20 Range/Units 06:51 14:13 Unknown Sodium 136 L 136 L (137-145) mmol/L Creatinine 0.7 L 0.7 L (0.8-1.3) mg/dL Glucose 129 H 124 H (75-100) mg/dL ALT 6 L (7-56) units/L Albumin 3.1 L (3.9-5) g/dL Coronavirus (PCR) Positive A (Negative) 10/22/20 Range/Units 06:32 Sodium 136 L (137-145) mmol/L Creatinine (0.8-1.3) mg/dL Glucose (75-100) mg/dL ALT 6 L (7-56) units/L Albumin 3.2 L (3.9-5) g/dL Coronavirus (PCR) (Negative) HEART Score - HEART Score Troponin: Troponin T < 0.010 ng/mL (0.00-0.029) 10/21/20 06:51
[2020-10-22] MEDS: CHOLECALCIFEROL (VIT D3) 5,000 UNIT TAB PO SCH (09:11)
[2020-10-22] MEDS: ASCORBIC ACID 500 MG TAB PO SCH ×2 (09:11→22:02)
[2020-10-22] MEDS: EMTRICITABINE 200 MG CAP PO SCH (09:11)
[2020-10-22] MEDS: TENOFOVIR 300 MG TAB PO SCH (09:11)
[2020-10-22] MEDS: DOLUTEGRAVIR 50 MG TAB PO SCH (09:11)
[2020-10-22] MEDS: dexAMETHasone 4 MG/ML VIAL IV SCH (09:12)
[2020-10-22] MEDS: HYDROcodone/HOMATROPINE 5-1.5MG /5 ML ORAL LIQD UNIT DOSE PO PRN ×3 (09:12→22:32)
--- NOTE | 2020-10-22 12:55 | Progress Note ---
Assessment and Plan Cultures: SARS CoV2 PCR: Positive 10/20/2020 blood culture: In process A/P: 35-year-old male with HIV with: #Bilateral pneumonia: COVID-19 positive #Acute hypoxic respiratory failure: On supplemental oxygen #HIV and AIDS: Supposed to be on Biktarvy, follows with Dr. Garcia however last viral load here in August 2020 was 925K, CD4 count was only 27, 4% suggestive of non-compliance with meds. #Leukopenia: Could be from HIV or COVID-19. Recs: -Continue empiric antibiotics for now: Ceftriaxone, azithromycin pending procalcitonin -Remdesivir day 2 of 4 -1 3 beta D glucan ordered given possibility of PCP pneumonia -Empiric IV Bactrim ordered, stop if fungitell negative. Has history of PJP -HIV RNA PCR and CD4 count ordered -Continue Biktarvy, therapeutic interchange for formulary to tenofovir, emtricitabine and dolutegravir Moses Garcia MD [facility] O: [phone] F: [phone] Subjective Date of service: 10/22/20 Principal diagnosis: Bilateral pneumonia Interval history: Afebrile, white count 4.0. Blood cultures no growth so far. Covid testing positive. Currently on room air. Mild hypoxia. On ceftriaxone and azithromycin. Objective - Exam Narrative Exam: Physical exam deferred due to PPE conservation strategy. Please refer to primary team's note. - Constitutional Vitals: Vital Signs Temp Pulse Resp BP Pulse Ox 98.1 F 90 18 103/55 92 10/22/20 04:26 10/22/20 04:26 10/22/20 04:26 10/22/20 04:26 10/22/20 04:26 Temperature -Last 24 Hours Temperature 98.1 F Temperature 97.8 F Temperature 97.4 F - Labs CBC & Chem 7: 10/21/20 06:51 10/22/20 06:32 Labs: Abnormal lab results 10/21/20 10/21/20 10/22/20 Range/Units 14:13 Unknown 06:32 Sodium 136 L 136 L (137-145) mmol/L Potassium 3.5 L D (3.6-5.0) mmol/L Creatinine 0.7 L (0.8-1.3) mg/dL Glucose 124 H (75-100) mg/dL ALT 6 L 6 L (7-56) units/L Albumin 3.1 L 3.2 L (3.9-5) g/dL Coronavirus (PCR) Positive A (Negative)
[2020-10-22] MEDS: FAMOTIDINE 20 MG TAB PO SCH (16:14)
[2020-10-22] MEDS: cefTRIAXone/NS 2 GM/100 ML 2 GM/100 ML BAG IV SCH (22:00)
[2020-10-22] MEDS: ENOXAPARIN 40 MG/0.4 ML INJ SUB-Q SCH (22:01)
[2020-10-22] MEDS: REMDESIVIR 100 MG in SODIUM CHLORIDE 0.9% 250ML 250 ML IV SCH (22:01)
[2020-10-22] MEDS: SODIUM CHLORIDE 0.9% 50 ML IVPB IV SCH (22:02)
[2020-10-22] MEDS: AZITHROMYCIN 250 MG TAB PO SCH (22:02)
[2020-10-22] MEDS: SODIUM CHLORIDE 0.9% 1000 ML 1,000 ML IV SCH (22:19)
[2020-10-23] MEDS: TMP IV SCH ×4 (00:18→18:53)
[2020-10-23] MEDS: DEXTROSE 5% IV SCH ×4 (00:18→18:53)
[2020-10-23] MEDS: WATER IV SCH ×4 (00:18→18:53)
[2020-10-23] MEDS: SMX IV SCH ×4 (00:18→18:53)
[2020-10-23] MEDS: HYDROcodone/HOMATROPINE 5-1.5MG /5 ML ORAL LIQD UNIT DOSE PO PRN ×2 (05:16→18:16)
[2020-10-23 07:50] LABS: Alanine Aminotransferase 5 units/L (7-56); Albumin 2.9 g/dL (3.9-5); BUN/Creatinine Ratio 11; Blood Urea Nitrogen 11 mg/dL (9-20); Calcium 8.4 mg/dL (8.4-10.2); Hemolysis Index 0
--- NOTE | 2020-10-23 10:37 | Progress Note ---
Assessment and Plan Assessment and plan: Bilateral pneumonia: COVID-19 positive Acute hypoxic respiratory failure: On supplemental oxygen HIV and AIDS:ID following Leukopenia: Etiology from COVID-19. 10/22. Continue remdesivir. Continue empiric antibiotics of ceftriaxone and azithromycin per ID recommendations. Empiric IV Bactrim per ID. Continue Biktarvy, therapeutic interchange for formulary to tenofovir, emtricitabine and dolutegravir History Interval history: No new issues Hospitalist Physical - Constitutional Vitals: Temp Pulse Resp BP Pulse Ox 97.5 F L 73 16 98/49 96 10/23/20 04:40 10/23/20 04:40 10/23/20 04:40 10/23/20 04:40 10/23/20 04:40 General appearance: Present: no acute distress, well-nourished - EENT Eyes: Present: PERRL, EOM intact ENT: hearing intact, clear oral mucosa, dentition normal - Neck Neck: Present: supple, normal ROM - Respiratory Respiratory effort: normal Respiratory: bilateral: CTA - Cardiovascular Rhythm: regular Heart Sounds: Present: S1 & S2. Absent: gallop, rub - Extremities Extremities: no ischemia, No edema, Full ROM - Abdominal General gastrointestinal: soft, non-tender, non-distended, normal bowel sounds - Integumentary Integumentary: Present: clear, warm, dry - Neurologic Neurologic: CNII-XII intact, moves all extremities HEART Score - HEART Score Troponin: Troponin T < 0.010 ng/mL (0.00-0.029) 10/21/20 06:51 Results - Labs CBC & Chem 7: 10/21/20 06:51 10/23/20 05:53 Labs: Laboratory Last Values WBC 4.0 K/mm3 (4.5-11.0) L 10/21/20 06:51 RBC 3.77 M/mm3 (3.65-5.03) 10/21/20 06:51 Hgb 10.0 gm/dl (11.8-15.2) L 10/21/20 06:51 Hct 30.3 % (35.5-45.6) L 10/21/20 06:51 MCV 80 fl (84-94) L 10/21/20 06:51 MCH 27 pg (28-32) L 10/21/20 06:51 MCHC 33 % (32-34) 10/21/20 06:51 RDW 17.9 % (13.2-15.2) H 10/21/20 06:51 Plt Count 513 K/mm3 (140-440) H 10/21/20 06:51 Lymph % (Auto) 20.4 % (13.4-35.0) 10/21/20 06:51 [place] % (Auto) 2.1 % (0.0-7.3) 10/21/20 06:51 Eos % (Auto) 0.1 % (0.0-4.3) 10/21/20 06:51 Baso % (Auto) 0.3 % (0.0-1.8) 10/21/20 06:51 Lymph # (Auto) 0.8 K/mm3 (1.2-5.4) L 10/21/20 06:51 [place] # (Auto) 0.1 K/mm3 (0.0-0.8) 10/21/20 06:51 Eos # (Auto) 0.0 K/mm3 (0.0-0.4) 10/21/20 06:51 Baso # (Auto) 0.0 K/mm3 (0.0-0.1) 10/21/20 06:51 Seg Neutrophils % 77.1 % (40.0-70.0) H 10/21/20 06:51 Seg Neutrophils # 3.1 K/mm3 (1.8-7.7) 10/21/20 06:51 PT 14.2 Sec. (12.2-14.9) 10/21/20 06:51 INR 1.11 (0.87-1.13) 10/21/20 06:51 D-Dimer 871.02 ng/mlDDU (0-234) H 10/20/20 22:43 Sodium 136 mmol/L (137-145) L 10/23/20 05:53 Potassium 3.9 mmol/L (3.6-5.0) 10/23/20 05:53 Chloride 102.9 mmol/L (98-107) 10/23/20 05:53 Carbon Dioxide 27 mmol/L (22-30) 10/23/20 05:53 Anion Gap 10 mmol/L 10/23/20 05:53 BUN 11 mg/dL (9-20) 10/23/20 05:53 Creatinine 1.0 mg/dL (0.8-1.3) 10/23/20 05:53 Estimated GFR > 60 ml/min 10/23/20 05:53 BUN/Creatinine Ratio 11 % 10/23/20 05:53 Glucose 101 mg/dL (75-100) H 10/23/20 05:53 Calcium 8.4 mg/dL (8.4-10.2) 10/23/20 05:53 Ferritin 204.5 ng/mL (30.0-300.0) 10/20/20 22:43 Total Bilirubin < 0.20 mg/dL (0.1-1.2) 10/23/20 05:53 AST 7 units/L (5-40) 10/23/20 05:53 ALT 5 units/L (7-56) L 10/23/20 05:53 Alkaline Phosphatase 50 units/L (35-129) 10/23/20 05:53 Lactate Dehydrogenase 190 units/L (91-180) H 10/20/20 22:43 Troponin T < 0.010 ng/mL (0.00-0.029) 10/21/20 06:51 C-Reactive Protein 8.10 mg/dL (0.00-1.30) H 10/20/20 22:43 NT-Pro-B Natriuret Pep 324.4 pg/mL (0-450) 10/20/20 20:41 Total Protein 6.5 g/dL (6.3-8.2) 10/23/20 05:53 Albumin 2.9 g/dL (3.9-5) L 10/23/20 05:53 Albumin/Globulin Ratio 0.8 % 10/23/20 05:53 Lipase 16 units/L (13-60) 10/20/20 20:41 Procalcitonin 0.10 ng/mL (<0.15) 10/20/20 22:43 Coronavirus (PCR) Positive (Negative) A 10/21/20 Unknown Microbiology: Microbiology 10/20/20 22:43 Peripheral/Venous Blood Culture - Preliminary NO GROWTH AFTER 48 HOURS 10/20/20 22:19 Peripheral/Venous Blood Culture - Preliminary NO GROWTH AFTER 48 HOURS 10/21/20 01:29 Nares - Right MRSA Culture - Preliminary Thakur/IV: Voiding Method Toilet Active Medications - Current Medications Current Medications: Generic Name Dose Route Start Last Admin Trade Name Freq PRN Reason Stop Dose Admin Acetaminophen 650 mg 10/20/20 22:35 Acetaminophen 325 Mg Tab PO Q4H PRN Pain MILD(1-3)/Fever >100.5/LIU Ascorbic Acid 1,000 mg 10/22/20 10:00 10/22/20 22:02 Ascorbic Acid 500 Mg Tab PO 1,000 mg BID CEFERINO Administration Azithromycin 500 mg 10/21/20 22:00 10/22/20 22:02 Azithromycin 250 Mg Tab PO 500 mg Q24H CEFERINO Administration Cholecalciferol 5,000 unit 10/22/20 10:00 10/22/20 09:11 Cholecalciferol (Vit D3) 5,000 Unit Tab PO 5,000 unit DAILY CEFERINO Administration Dexamethasone 6 mg 10/23/20 10:00 Dexamethasone 4 Mg Tab PO 10/29/20 12:00 DAILY CEFERINO Emtricitabine 200 mg 10/21/20 16:00 10/22/20 09:11 Emtricitabine 200 Mg Cap PO 200 mg QDAY CEFERINO Administration Enoxaparin Sodium 40 mg 10/21/20 22:00 10/22/20 22:01 Enoxaparin 40 Mg/0.4 Ml Inj SUB-Q 40 mg QDAY@2200 CEFERINO Administration Protocol Famotidine 20 mg 10/22/20 16:30 10/22/20 16:14 Famotidine 20 Mg Tab PO 20 mg BIDAC CEFERINO Administration Hydrocodone Bit/Homatropine Methylb 10 ml 10/22/20 08:02 10/23/20 05:16 Hydrocodone/Homatropine 5-1.5mg /5 Ml Oral Liqd Unit Dose PO 10 ml Q6H PRN Administration Cough Sodium Chloride 1,000 mls @ 75 mls/hr 10/20/20 22:45 10/22/20 22:19 Nacl 0.9% 1000 Ml IV 75 mls/hr DIRECT CEFERINO Administration Ceftriaxone Sodium 2 gm in 100 mls @ 200 mls/hr 10/21/20 22:00 10/22/20 22:00 Rocephin/Ns 2 Gm/100 Ml IV 200 mls/hr Q24H CEFERINO Administration Protocol Trimethoprim/Sulfamethoxazole 527.5 mls @ 167 mls/hr 10/21/20 12:30 10/23/20 05:16 440 mg/ Dextrose IV 167 mls/hr Q6HR CEFERINO Administration Protocol REMDESIVIR 100 mg/ Sodium 250 mls @ 500 mls/hr 10/22/20 21:00 10/22/20 22:01 Chloride IV 10/25/20 21:29 500 mls/hr Q24HR@2100 CEFERINO Administration Magnesium Hydroxide 30 ml 10/20/20 22:35 Magnesium Hydroxide (Mom) Oral Liqd Udc PO Q4H PRN Constipation Morphine Sulfate 2 mg 10/20/20 22:35 Morphine 2 Mg/1 Ml Inj IV Q4H PRN Pain, Moderate (4-6) Ondansetron HCl 4 mg 10/20/20 22:35 Ondansetron 4 Mg/2 Ml Inj IV Q8H PRN Nausea And Vomiting Sodium Chloride 10 ml 10/21/20 10:00 10/22/20 22:01 Sodium Chloride 0.9% 10 Ml Flush Syringe IV 10 ml BID CEFERINO Administration Sodium Chloride 10 ml 10/20/20 22:35 Sodium Chloride 0.9% 10 Ml Flush Syringe IV PRN PRN LINE FLUSH Sodium Chloride 50 ml 10/21/20 15:30 10/22/20 22:02 Sodium Chloride 0.9% 50 Ml Ivpb IV 10/25/20 21:01 50 ml Q24HR@2100 CEFERINO Administration Tenofovir Disoproxil Fumarate 300 mg 10/21/20 16:00 10/22/20 09:11 Tenofovir 300 Mg Tab PO 300 mg QDAY CEFERINO Administration
--- NOTE | 2020-10-23 10:57 | Progress Note ---
Assessment and Plan Cultures: SARS CoV2 PCR: Positive 10/20/2020 blood culture: In process A/P: 35-year-old male with HIV with: #Bilateral pneumonia: COVID-19 positive #Acute hypoxic respiratory failure: On supplemental oxygen #HIV and AIDS: Supposed to be on Biktarvy, follows with Dr. Garcia however last viral load here in August 2020 was 925K, CD4 count was only 27, 4% suggestive of non-compliance with meds. #Leukopenia: Could be from HIV or COVID-19. Recs: -Stopped ceftriaxone/azithromycin due to normal procal. -Added doxycycline for rash on legs. Less likely bacillary angiomatosis but possible. -Remdesivir day 3 of 4 -1 3 beta D glucan ordered given possibility of PCP pneumonia -Empiric IV Bactrim ordered, stop if fungitell negative. Has history of PJP -HIV RNA PCR and CD4 count ordered -Continue Biktarvy, therapeutic interchange for formulary to tenofovir, emtricitabine and dolutegravir Moses Garcia MD [facility] O: [phone] F: [phone] Subjective Date of service: 10/23/20 Principal diagnosis: Bilateral pneumonia Interval history: Afebrile, normal white count. Noted images of lower extremity rash and bilateral foot edema. Objective - Exam Narrative Exam: Physical exam deferred due to PPE conservation strategy. Please refer to primary team's note. - Constitutional Vitals: Vital Signs Temp Pulse Resp BP Pulse Ox 97.5 F L 73 16 98/49 96 10/23/20 04:40 10/23/20 04:40 10/23/20 04:40 10/23/20 04:40 10/23/20 04:40 Temperature -Last 24 Hours Temperature 97.5 F Temperature 98.0 F Temperature 98.0 F Temperature 98.6 F - Labs CBC & Chem 7: 10/21/20 06:51 10/23/20 05:53 Labs: Abnormal lab results 10/23/20 Range/Units 05:53 Sodium 136 L (137-145) mmol/L Glucose 101 H (75-100) mg/dL ALT 5 L (7-56) units/L Albumin 2.9 L (3.9-5) g/dL
[2020-10-23] MEDS: DEXAMETHASONE 4 MG TAB PO SCH (11:36)
[2020-10-23] MEDS: ASCORBIC ACID 500 MG TAB PO SCH ×2 (11:37→22:02)
[2020-10-23] MEDS: CHOLECALCIFEROL (VIT D3) 5,000 UNIT TAB PO SCH (11:37)
[2020-10-23] MEDS: TENOFOVIR 300 MG TAB PO SCH (11:37)
[2020-10-23] MEDS: EMTRICITABINE 200 MG CAP PO SCH (11:38)
[2020-10-23] MEDS: DOLUTEGRAVIR 50 MG TAB PO SCH (11:38)
[2020-10-23] MEDS: FAMOTIDINE 20 MG TAB PO SCH ×2 (11:40→18:14)
[2020-10-23] MEDS: DOXYCYCLINE 100 MG CAP PO SCH ×2 (12:06→22:02)
[2020-10-23] MEDS: SODIUM CHLORIDE 0.9% 50 ML IVPB IV SCH (22:02)
[2020-10-23] MEDS: ENOXAPARIN 40 MG/0.4 ML INJ SUB-Q SCH (22:02)
[2020-10-23] MEDS: REMDESIVIR 100 MG in SODIUM CHLORIDE 0.9% 250ML 250 ML IV SCH (22:03)
[2020-10-24] MEDS: WATER IV SCH ×4 (00:17→19:50)
[2020-10-24] MEDS: DEXTROSE 5% IV SCH ×4 (00:17→19:50)
[2020-10-24] MEDS: TMP IV SCH ×4 (00:17→19:50)
[2020-10-24] MEDS: SMX IV SCH ×4 (00:17→19:50)
[2020-10-24] MEDS: HYDROcodone/HOMATROPINE 5-1.5MG /5 ML ORAL LIQD UNIT DOSE PO PRN ×3 (01:56→21:43)
[2020-10-24] MEDS: SODIUM CHLORIDE 0.9% 1000 ML 1,000 ML IV SCH ×3 (05:45→23:39)
[2020-10-24 07:36] LABS: Basophils % (Auto) 0.2 % (0.0-1.8); Eosinophils # (Auto) 0.2 K/mm3 (0.0-0.4); Hematocrit 31.8 % (35.5-45.6); Hemoglobin 10.4 gm/dl (11.8-15.2); Lymphocytes # (Auto) 0.8 K/mm3 (1.2-5.4); Lymphocytes % (Auto) 13.8 % (13.4-35.0); Mean Corpuscular HGB Conc 33 % (32-34); Mean Corpuscular Volume 81 fl (84-94); Monocytes # (Auto) 0.4 K/mm3 (0.0-0.8); Monocytes % (Auto) 7.2 % (0.0-7.3); Platelet Count 581 K/mm3 (140-440); Red Blood Count 3.95 M/mm3 (3.65-5.03); Red Cell Distribution Width 17.7 % (13.2-15.2)
[2020-10-24 07:59] LABS: Alanine Aminotransferase 5 units/L (7-56); BUN/Creatinine Ratio 12; Blood Urea Nitrogen 11 mg/dL (9-20); Calcium 8.4 mg/dL (8.4-10.2); Hemolysis Index 3
[2020-10-24] MEDS: FAMOTIDINE 20 MG TAB PO SCH ×2 (08:26→17:32)
--- NOTE | 2020-10-24 09:25 | Progress Note ---
Assessment and Plan Assessment and plan: Bilateral pneumonia: COVID-19 positive Acute hypoxic respiratory failure: On supplemental oxygen HIV and AIDS:ID following Leukopenia: Etiology from COVID-19. 10/23. Continue remdesivir. Continue empiric antibiotics of ceftriaxone and azithromycin per ID recommendations. Empiric IV Bactrim per ID. Continue Biktarvy, therapeutic interchange for formulary to tenofovir, emtricitabine and dolutegravir 10/24. Continue remdesivir. Ceftriaxone and azithromycin was stopped given normal procalcitonin. Doxycycline added per ID recommendations. Empiric IV Bactrim per ID. Continue Biktarvy, therapeutic interchange for formulary to tenofovir, emtricitabine and dolutegravir History Interval history: No new issues Hospitalist Physical - Constitutional Vitals: Temp Pulse Resp BP Pulse Ox 97.8 F 66 22 91/47 94 10/24/20 05:51 10/24/20 05:51 10/24/20 05:51 10/24/20 05:51 10/24/20 05:51 General appearance: Present: no acute distress, well-nourished - EENT Eyes: Present: PERRL, EOM intact ENT: hearing intact, clear oral mucosa, dentition normal - Neck Neck: Present: supple, normal ROM - Respiratory Respiratory effort: normal Respiratory: bilateral: CTA - Cardiovascular Rhythm: regular Heart Sounds: Present: S1 & S2. Absent: gallop, rub - Extremities Extremities: no ischemia, No edema, Full ROM - Abdominal General gastrointestinal: soft, non-tender, non-distended, normal bowel sounds - Integumentary Integumentary: Present: clear, warm, dry - Neurologic Neurologic: CNII-XII intact, moves all extremities HEART Score - HEART Score Troponin: Troponin T < 0.010 ng/mL (0.00-0.029) 10/21/20 06:51 Results - Labs CBC & Chem 7: 10/24/20 06:36 10/24/20 06:36 Labs: Laboratory Last Values WBC 5.8 K/mm3 (4.5-11.0) 10/24/20 06:36 RBC 3.95 M/mm3 (3.65-5.03) 10/24/20 06:36 Hgb 10.4 gm/dl (11.8-15.2) L 10/24/20 06:36 Hct 31.8 % (35.5-45.6) L 10/24/20 06:36 MCV 81 fl (84-94) L 10/24/20 06:36 MCH 26 pg (28-32) L 10/24/20 06:36 MCHC 33 % (32-34) 10/24/20 06:36 RDW 17.7 % (13.2-15.2) H 10/24/20 06:36 Plt Count 581 K/mm3 (140-440) H 10/24/20 06:36 Lymph % (Auto) 13.8 % (13.4-35.0) 10/24/20 06:36 [place] % (Auto) 7.2 % (0.0-7.3) 10/24/20 06:36 Eos % (Auto) 4.0 % (0.0-4.3) 10/24/20 06:36 Baso % (Auto) 0.2 % (0.0-1.8) 10/24/20 06:36 Lymph # (Auto) 0.8 K/mm3 (1.2-5.4) L 10/24/20 06:36 [place] # (Auto) 0.4 K/mm3 (0.0-0.8) 10/24/20 06:36 Eos # (Auto) 0.2 K/mm3 (0.0-0.4) 10/24/20 06:36 Baso # (Auto) 0.0 K/mm3 (0.0-0.1) 10/24/20 06:36 Seg Neutrophils % 74.8 % (40.0-70.0) H 10/24/20 06:36 Seg Neutrophils # 4.4 K/mm3 (1.8-7.7) 10/24/20 06:36 PT 14.2 Sec. (12.2-14.9) 10/21/20 06:51 INR 1.11 (0.87-1.13) 10/21/20 06:51 D-Dimer 871.02 ng/mlDDU (0-234) H 10/20/20 22:43 Sodium 134 mmol/L (137-145) L 10/24/20 06:36 Potassium 4.1 mmol/L (3.6-5.0) 10/24/20 06:36 Chloride 101.7 mmol/L (98-107) 10/24/20 06:36 Carbon Dioxide 24 mmol/L (22-30) 10/24/20 06:36 Anion Gap 12 mmol/L 10/24/20 06:36 BUN 11 mg/dL (9-20) 10/24/20 06:36 Creatinine 0.9 mg/dL (0.8-1.3) 10/24/20 06:36 Estimated GFR > 60 ml/min 10/24/20 06:36 BUN/Creatinine Ratio 12 % 10/24/20 06:36 Glucose 102 mg/dL (75-100) H 10/24/20 06:36 Calcium 8.4 mg/dL (8.4-10.2) 10/24/20 06:36 Ferritin 204.5 ng/mL (30.0-300.0) 10/20/20 22:43 Total Bilirubin < 0.20 mg/dL (0.1-1.2) 10/24/20 06:36 AST 7 units/L (5-40) 10/24/20 06:36 ALT 5 units/L (7-56) L 10/24/20 06:36 Alkaline Phosphatase 53 units/L (35-129) 10/24/20 06:36 Lactate Dehydrogenase 190 units/L (91-180) H 10/20/20 22:43 Troponin T < 0.010 ng/mL (0.00-0.029) 10/21/20 06:51 C-Reactive Protein 8.10 mg/dL (0.00-1.30) H 10/20/20 22:43 NT-Pro-B Natriuret Pep 324.4 pg/mL (0-450) 10/20/20 20:41 Total Protein 6.6 g/dL (6.3-8.2) 10/24/20 06:36 Albumin 3.0 g/dL (3.9-5) L 10/24/20 06:36 Albumin/Globulin Ratio 0.8 % 10/24/20 06:36 Lipase 16 units/L (13-60) 10/20/20 20:41 Procalcitonin 0.10 ng/mL (<0.15) 10/20/20 22:43 Coronavirus (PCR) Positive (Negative) A 10/21/20 Unknown Microbiology: Microbiology 10/20/20 22:43 Peripheral/Venous Blood Culture - Preliminary NO GROWTH AFTER 72 HOURS 10/20/20 22:19 Peripheral/Venous Blood Culture - Preliminary NO GROWTH AFTER 72 HOURS Thakur/IV: Voiding Method Toilet Active Medications - Current Medications Current Medications: Generic Name Dose Route Start Last Admin Trade Name Freq PRN Reason Stop Dose Admin Acetaminophen 650 mg 10/20/20 22:35 Acetaminophen 325 Mg Tab PO Q4H PRN Pain MILD(1-3)/Fever >100.5/LIU Ascorbic Acid 1,000 mg 10/22/20 10:00 10/23/20 22:02 Ascorbic Acid 500 Mg Tab PO 1,000 mg BID CEFERINO Administration Cholecalciferol 5,000 unit 10/22/20 10:00 10/23/20 11:37 Cholecalciferol (Vit D3) 5,000 Unit Tab PO 5,000 unit DAILY CEFERINO Administration Dexamethasone 6 mg 10/23/20 10:00 10/23/20 11:36 Dexamethasone 4 Mg Tab PO 10/29/20 12:00 6 mg DAILY CEFERINO Administration Doxycycline Hyclate 100 mg 10/23/20 11:00 10/23/20 22:02 Doxycycline 100 Mg Cap PO 100 mg BID CEFERINO Administration Protocol Emtricitabine 200 mg 10/21/20 16:00 10/23/20 11:38 Emtricitabine 200 Mg Cap PO 200 mg QDAY CEFERINO Administration Enoxaparin Sodium 40 mg 10/21/20 22:00 10/23/20 22:02 Enoxaparin 40 Mg/0.4 Ml Inj SUB-Q 40 mg QDAY@2200 CEFERINO Administration Protocol Famotidine 20 mg 10/22/20 16:30 10/24/20 08:26 Famotidine 20 Mg Tab PO 20 mg BIDAC CEFERINO Administration Hydrocodone Bit/Homatropine Methylb 10 ml 10/22/20 08:02 10/24/20 01:56 Hydrocodone/Homatropine 5-1.5mg /5 Ml Oral Liqd Unit Dose PO 10 ml Q6H PRN Administration Cough Sodium Chloride 1,000 mls @ 75 mls/hr 10/20/20 22:45 10/24/20 05:45 Nacl 0.9% 1000 Ml IV 75 mls/hr DIRECT CEFERINO Administration Trimethoprim/Sulfamethoxazole 527.5 mls @ 167 mls/hr 10/21/20 12:30 10/24/20 05:39 440 mg/ Dextrose IV 167 mls/hr Q6HR CEFERINO Administration Protocol REMDESIVIR 100 mg/ Sodium 250 mls @ 500 mls/hr 10/22/20 21:00 10/23/20 22:03 Chloride IV 10/25/20 21:29 500 mls/hr Q24HR@2100 CEFERINO Administration Magnesium Hydroxide 30 ml 10/20/20 22:35 Magnesium Hydroxide (Mom) Oral Liqd Udc PO Q4H PRN Constipation Morphine Sulfate 2 mg 10/20/20 22:35 Morphine 2 Mg/1 Ml Inj IV Q4H PRN Pain, Moderate (4-6) Ondansetron HCl 4 mg 10/20/20 22:35 Ondansetron 4 Mg/2 Ml Inj IV Q8H PRN Nausea And Vomiting Sodium Chloride 10 ml 10/21/20 10:00 10/23/20 22:03 Sodium Chloride 0.9% 10 Ml Flush Syringe IV 10 ml BID CEFERINO Administration Sodium Chloride 10 ml 10/20/20 22:35 Sodium Chloride 0.9% 10 Ml Flush Syringe IV PRN PRN LINE FLUSH Sodium Chloride 50 ml 10/21/20 15:30 10/23/20 22:02 Sodium Chloride 0.9% 50 Ml Ivpb IV 10/25/20 21:01 50 ml Q24HR@2100 CEFERINO Administration Tenofovir Disoproxil Fumarate 300 mg 10/21/20 16:00 10/23/20 11:37 Tenofovir 300 Mg Tab PO 300 mg QDAY CEFERINO Administration
[2020-10-24] MEDS: DEXAMETHASONE 4 MG TAB PO SCH (10:10)
[2020-10-24] MEDS: ASCORBIC ACID 500 MG TAB PO SCH ×2 (10:10→21:42)
[2020-10-24] MEDS: CHOLECALCIFEROL (VIT D3) 5,000 UNIT TAB PO SCH (10:10)
[2020-10-24] MEDS: DOXYCYCLINE 100 MG CAP PO SCH ×2 (10:10→21:41)
[2020-10-24] MEDS: EMTRICITABINE 200 MG CAP PO SCH (10:11)
[2020-10-24] MEDS: DOLUTEGRAVIR 50 MG TAB PO SCH (10:11)
[2020-10-24] MEDS: TENOFOVIR 300 MG TAB PO SCH (11:57)
--- NOTE | 2020-10-24 13:07 | Progress Note ---
Assessment and Plan Cultures: SARS CoV2 PCR: Positive 10/20/2020 blood culture: In process A/P: 35-year-old male with HIV with: #Bilateral pneumonia: COVID-19 positive #Acute hypoxic respiratory failure: On supplemental oxygen #HIV and AIDS: Supposed to be on Biktarvy, follows with Dr. Garcia however last viral load here in August 2020 was 925K, CD4 count was only 27, 4% suggestive of non-compliance with meds. #Leukopenia: Could be from HIV or COVID-19. Recs: -Recommend skin biopsy of legs, if general surgery willing to do it. -Added doxycycline for rash on legs. Less likely bacillary angiomatosis but possible. -Remdesivir day 4 of 5 -1 3 beta D glucan ordered given possibility of PCP pneumonia -Empiric IV Bactrim ordered, stop if fungitell negative. Has history of PJP -HIV RNA PCR and CD4 count ordered -Continue Biktarvy, therapeutic interchange for formulary to tenofovir, em tricitabine and dolutegravir Moses Garcia MD [facility] [place] [facility] O: [phone] F: [phone] Subjective Date of service: 10/24/20 Principal diagnosis: Bilateral pneumonia Interval history: Afebrile, normal white count. Currently on 7 L nasal cannula. Objective - Exam Narrative Exam: Physical exam deferred due to PPE conservation strategy. Please refer to primary team's note. - Constitutional Vitals: Vital Signs Temp Pulse Resp BP Pulse Ox 97.8 F 66 22 91/47 94 10/24/20 05:51 10/24/20 05:51 10/24/20 05:51 10/24/20 05:51 10/24/20 11:17 Temperature -Last 24 Hours Temperature 97.8 F Temperature 97.8 F Temperature 97.9 F Temperature 98.2 F - Labs CBC & Chem 7: 10/24/20 06:36 10/24/20 06:36 Labs: Abnormal lab results 10/24/20 10/24/20 Range/Units 06:36 06:36 Hgb 10.4 L (11.8-15.2) gm/dl Hct 31.8 L (35.5-45.6) % MCV 81 L (84-94) fl MCH 26 L (28-32) pg RDW 17.7 H (13.2-15.2) % Plt Count 581 H (140-440) K/mm3 Lymph # (Auto) 0.8 L (1.2-5.4) K/mm3 Seg Neutrophils % 74.8 H (40.0-70.0) % Sodium 134 L (137-145) mmol/L Glucose 102 H (75-100) mg/dL ALT 5 L (7-56) units/L Albumin 3.0 L (3.9-5) g/dL
[2020-10-24 15:06] LABS: CD4/CD8 Ratio 0.36 (0.86-5.00)
[2020-10-24] MEDS: REMDESIVIR 100 MG in SODIUM CHLORIDE 0.9% 250ML 250 ML IV SCH (21:41)
[2020-10-24] MEDS: SODIUM CHLORIDE 0.9% 50 ML IVPB IV SCH (21:41)
[2020-10-24] MEDS: ENOXAPARIN 40 MG/0.4 ML INJ SUB-Q SCH (21:43)
[2020-10-25] MEDS: SMX IV SCH ×4 (00:40→18:45)
[2020-10-25] MEDS: WATER IV SCH ×4 (00:40→18:45)
[2020-10-25] MEDS: DEXTROSE 5% IV SCH ×4 (00:40→18:45)
[2020-10-25] MEDS: TMP IV SCH ×4 (00:40→18:45)
[2020-10-25] MEDS: HYDROcodone/HOMATROPINE 5-1.5MG /5 ML ORAL LIQD UNIT DOSE PO PRN ×2 (05:41→15:12)
[2020-10-25] MEDS: FAMOTIDINE 20 MG TAB PO SCH ×2 (08:33→18:44)
--- NOTE | 2020-10-25 10:44 | Progress Note ---
Assessment and Plan Assessment and plan: Bilateral pneumonia: COVID-19 positive Acute hypoxic respiratory failure: On supplemental oxygen HIV and AIDS:ID following Leukopenia: Etiology from COVID-19. 10/23. Continue remdesivir. Continue empiric antibiotics of ceftriaxone and azithromycin per ID recommendations. Empiric IV Bactrim per ID. Continue Biktarvy, therapeutic interchange for formulary to tenofovir, emtricitabine and dolutegravir 10/24. Continue remdesivir. Ceftriaxone and azithromycin was stopped given normal procalcitonin. Doxycycline added per ID recommendations. Empiric IV Bactrim per ID. Continue Biktarvy, therapeutic interchange for formulary to tenofovir, emtricitabine and dolutegravir. 10/25. Remdesivir completion today. Continue empiric IV Bactrim per ID recommendations. Follow-up HIV RNA PCR and CD4 count. Continue Biktarvy, therapeutic interchange for formulary to tenofovir, emtricitabine and dolute gravir. Pt currently with 7L O2. Wean as tolerated History Interval history: No new issues Hospitalist Physical - Constitutional Vitals: Temp Pulse Resp BP Pulse Ox 97.6 F 72 20 108/61 93 10/25/20 05:24 10/25/20 05:24 10/25/20 05:24 10/25/20 05:24 10/25/20 08:55 General appearance: Present: no acute distress, well-nourished - EENT Eyes: Present: PERRL, EOM intact ENT: hearing intact, clear oral mucosa, dentition normal - Neck Neck: Present: supple, normal ROM - Respiratory Respiratory effort: normal Respiratory: bilateral: CTA - Cardiovascular Rhythm: regular Heart Sounds: Present: S1 & S2. Absent: gallop, rub - Extremities Extremities: no ischemia, No edema, Full ROM - Abdominal General gastrointestinal: soft, non-tender, non-distended, normal bowel sounds - Integumentary Integumentary: Present: clear, warm, dry - Neurologic Neurologic: CNII-XII intact, moves all extremities HEART Score - HEART Score Troponin: Troponin T < 0.010 ng/mL (0.00-0.029) 10/21/20 06:51 Results - Labs CBC & Chem 7: 10/24/20 06:36 10/24/20 06:36 Labs: Laboratory Last Values WBC 5.8 K/mm3 (4.5-11.0) 10/24/20 06:36 RBC 3.95 M/mm3 (3.65-5.03) 10/24/20 06:36 Hgb 10.4 gm/dl (11.8-15.2) L 10/24/20 06:36 Hct 31.8 % (35.5-45.6) L 10/24/20 06:36 MCV 81 fl (84-94) L 10/24/20 06:36 MCH 26 pg (28-32) L 10/24/20 06:36 MCHC 33 % (32-34) 10/24/20 06:36 RDW 17.7 % (13.2-15.2) H 10/24/20 06:36 Plt Count 581 K/mm3 (140-440) H 10/24/20 06:36 Lymph % (Auto) 13.8 % (13.4-35.0) 10/24/20 06:36 [place]y % (Auto) 7.2 % (0.0-7.3) 10/24/20 06:36 Eos % (Auto) 4.0 % (0.0-4.3) 10/24/20 06:36 Baso % (Auto) 0.2 % (0.0-1.8) 10/24/20 06:36 Lymph # (Auto) 0.8 K/mm3 (1.2-5.4) L 10/24/20 06:36 [place]y # (Auto) 0.4 K/mm3 (0.0-0.8) 10/24/20 06:36 Eos # (Auto) 0.2 K/mm3 (0.0-0.4) 10/24/20 06:36 Baso # (Auto) 0.0 K/mm3 (0.0-0.1) 10/24/20 06:36 Seg Neutrophils % 74.8 % (40.0-70.0) H 10/24/20 06:36 Seg Neutrophils # 4.4 K/mm3 (1.8-7.7) 10/24/20 06:36 Abs Lymphs (Manual) 365 cells/uL (850-3900) L 10/21/20 09:41 PT 14.2 Sec. (12.2-14.9) 10/21/20 06:51 INR 1.11 (0.87-1.13) 10/21/20 06:51 D-Dimer 871.02 ng/mlDDU (0-234) H 10/20/20 22:43 Sodium 134 mmol/L (137-145) L 10/24/20 06:36 Potassium 4.1 mmol/L (3.6-5.0) 10/24/20 06:36 Chloride 101.7 mmol/L (98-107) 10/24/20 06:36 Carbon Dioxide 24 mmol/L (22-30) 10/24/20 06:36 Anion Gap 12 mmol/L 10/24/20 06:36 BUN 11 mg/dL (9-20) 10/24/20 06:36 Creatinine 0.9 mg/dL (0.8-1.3) 10/24/20 06:36 Estimated GFR > 60 ml/min 10/24/20 06:36 BUN/Creatinine Ratio 12 % 10/24/20 06:36 Glucose 102 mg/dL (75-100) H 10/24/20 06:36 Calcium 8.4 mg/dL (8.4-10.2) 10/24/20 06:36 Ferritin 204.5 ng/mL (30.0-300.0) 10/20/20 22:43 Total Bilirubin < 0.20 mg/dL (0.1-1.2) 10/24/20 06:36 AST 7 units/L (5-40) 10/24/20 06:36 ALT 5 units/L (7-56) L 10/24/20 06:36 Alkaline Phosphatase 53 units/L (35-129) 10/24/20 06:36 Lactate Dehydrogenase 190 units/L (91-180) H 10/20/20 22:43 Troponin T < 0.010 ng/mL (0.00-0.029) 10/21/20 06:51 C-Reactive Protein 8.10 mg/dL (0.00-1.30) H 10/20/20 22:43 NT-Pro-B Natriuret Pep 324.4 pg/mL (0-450) 10/20/20 20:41 Total Protein 6.6 g/dL (6.3-8.2) 10/24/20 06:36 Albumin 3.0 g/dL (3.9-5) L 10/24/20 06:36 Albumin/Globulin Ratio 0.8 % 10/24/20 06:36 Lipase 16 units/L (13-60) 10/20/20 20:41 Procalcitonin 0.10 ng/mL (<0.15) 10/20/20 22:43 Lymph Enumerat CD4/CD8 0.36 (0.86-5.00) L 10/21/20 09:41 % CD3 Cells 52 % (57-85) L 10/21/20 09:41 Absolute CD3 Count 188 cells/uL (840-3060) L 10/21/20 09:41 % CD4 Cells 13 % (30-61) L 10/21/20 09:41 Absolute CD4 Count 48 cells/uL (490-1740) L 10/21/20 09:41 % CD8 Cells 37 % (12-42) 10/21/20 09:41 Absolute CD8 Count 133 cells/uL (180-1170) L 10/21/20 09:41 % CD19 Cells 26 % (6-29) 10/21/20 09:41 Absolute CD19 Count 97 cells/uL (110-660) L 10/21/20 09:41 Coronavirus (PCR) Positive (Negative) A 10/21/20 Unknown Microbiology: Microbiology 10/20/20 22:43 Peripheral/Venous Blood Culture - Preliminary NO GROWTH AFTER 4 DAYS 10/20/20 22:19 Peripheral/Venous Blood Culture - Preliminary NO GROWTH AFTER 4 DAYS Thakur/IV: Voiding Method Toilet Active Medications - Current Medications Current Medications: Generic Name Dose Route Start Last Admin Trade Name Nicanorq PRN Reason Stop Dose Admin Acetaminophen 650 mg 10/20/20 22:35 Acetaminophen 325 Mg Tab PO Q4H PRN Pain MILD(1-3)/Fever >100.5/LIU Ascorbic Acid 1,000 mg 10/22/20 10:00 10/24/20 21:42 Ascorbic Acid 500 Mg Tab PO 1,000 mg BID CEFERINO Administration Cholecalciferol 5,000 unit 10/22/20 10:00 10/24/20 10:10 Cholecalciferol (Vit D3) 5,000 Unit Tab PO 5,000 unit DAILY CEFERINO Administration Dexamethasone 6 mg 10/23/20 10:00 10/24/20 10:10 Dexamethasone 4 Mg Tab PO 10/29/20 12:00 6 mg DAILY CEFERINO Administration Doxycycline Hyclate 100 mg 10/23/20 11:00 10/24/20 21:41 Doxycycline 100 Mg Cap PO 100 mg BID CEFERINO Administration Protocol Emtricitabine 200 mg 10/21/20 16:00 10/24/20 10:11 Emtricitabine 200 Mg Cap PO 200 mg QDAY CEFERINO Administration Enoxaparin Sodium 40 mg 10/21/20 22:00 10/24/20 21:43 Enoxaparin 40 Mg/0.4 Ml Inj SUB-Q 40 mg QDAY@2200 CEFERINO Administration Protocol Famotidine 20 mg 10/22/20 16:30 10/25/20 08:33 Famotidine 20 Mg Tab PO 20 mg BIDAC CEFERINO Administration Hydrocodone Bit/Homatropine Methylb 10 ml 10/22/20 08:02 10/25/20 05:41 Hydrocodone/Homatropine 5-1.5mg /5 Ml Oral Liqd Unit Dose PO 10 ml Q6H PRN Administration Cough Sodium Chloride 1,000 mls @ 75 mls/hr 10/20/20 22:45 10/24/20 23:39 Nacl 0.9% 1000 Ml IV 75 mls/hr DIRECT CEFERINO Administration Trimethoprim/Sulfamethoxazole 527.5 mls @ 167 mls/hr 10/21/20 12:30 10/25/20 05:40 440 mg/ Dextrose IV 167 mls/hr Q6HR CEFERINO Administration Protocol REMDESIVIR 100 mg/ Sodium 250 mls @ 500 mls/hr 10/22/20 21:00 10/24/20 21:41 Chloride IV 10/25/20 21:29 500 mls/hr Q24HR@2100 CEFERINO Administration Magnesium Hydroxide 30 ml 10/20/20 22:35 Magnesium Hydroxide (Mom) Oral Liqd Udc PO Q4H PRN Constipation Morphine Sulfate 2 mg 10/20/20 22:35 Morphine 2 Mg/1 Ml Inj IV Q4H PRN Pain, Moderate (4-6) Ondansetron HCl 4 mg 10/20/20 22:35 Ondansetron 4 Mg/2 Ml Inj IV Q8H PRN Nausea And Vomiting Sodium Chloride 10 ml 10/21/20 10:00 10/24/20 21:42 Sodium Chloride 0.9% 10 Ml Flush Syringe IV 10 ml BID CEFERINO Administration Sodium Chloride 10 ml 10/20/20 22:35 Sodium Chloride 0.9% 10 Ml Flush Syringe IV PRN PRN LINE FLUSH Sodium Chloride 50 ml 10/21/20 15:30 10/24/20 21:41 Sodium Chloride 0.9% 50 Ml Ivpb IV 10/25/20 21:01 50 ml Q24HR@2100 CEFERINO Administration Tenofovir Disoproxil Fumarate 300 mg 10/21/20 16:00 10/24/20 11:57 Tenofovir 300 Mg Tab PO 300 mg QDAY CEFERINO Administration
--- NOTE | 2020-10-25 11:26 | Progress Note ---
Assessment and Plan Cultures: SARS CoV2 PCR: Positive 10/20/2020 blood culture: In process A/P: 35-year-old male with HIV with: #Bilateral pneumonia: COVID-19 positive #Acute hypoxic respiratory failure: On supplemental oxygen #HIV and AIDS: Supposed to be on Biktarvy, follows with Dr. Garcia however last viral load here in August 2020 was 925K, CD4 count was only 27, 4% suggestive of non-compliance with meds. #Leukopenia: Could be from HIV or COVID-19. Recs: -Recommend skin biopsy of legs, if general surgery willing to do it. -Added doxycycline for rash on legs. Less likely bacillary angiomatosis but possible. -Remdesivir day 5 of 5 -1 3 beta D glucan ordered given possibility of PCP pneumonia -Empiric IV Bactrim ordered, stop if fungitell negative. Has history of PJP -HIV RNA PCR and CD4 count ordered -Continue Biktarvy, therapeutic interchange for formulary to tenofovir, em tricitabine and dolutegravir Moses Garcia MD [facility] ([facility] O: [phone] F: [phone] Subjective Date of service: 10/25/20 Principal diagnosis: Bilateral pneumonia Interval history: Afebrile, normal white count. CD4 count 48 with a 13%. Pending HIV viral load. Objective - Exam Narrative Exam: Physical exam deferred due to PPE conservation strategy. Please refer to primary team's note. - Constitutional Vitals: Vital Signs Temp Pulse Resp BP Pulse Ox 97.6 F 72 20 108/61 93 10/25/20 05:24 10/25/20 05:24 10/25/20 05:24 10/25/20 05:24 10/25/20 08:55 Temperature -Last 24 Hours Temperature 97.6 F Temperature 98.1 F - Labs CBC & Chem 7: 10/24/20 06:36 10/24/20 06:36 Labs: Abnormal lab results 10/21/20 Range/Units 09:41 Abs Lymphs (Manual) 365 L (850-3900) cells/uL Lymph Enumerat CD4/CD8 0.36 L (0.86-5.00) % CD3 Cells 52 L (57-85) % Absolute CD3 Count 188 L (840-3060) cells/uL % CD4 Cells 13 L (30-61) % Absolute CD4 Count 48 L (490-1740) cells/uL Absolute CD8 Count 133 L (180-1170) cells/uL Absolute CD19 Count 97 L (110-660) cells/uL
[2020-10-25] MEDS: DOXYCYCLINE 100 MG CAP PO SCH ×2 (11:50→21:16)
[2020-10-25] MEDS: ASCORBIC ACID 500 MG TAB PO SCH ×2 (11:52→21:30)
[2020-10-25] MEDS: DEXAMETHASONE 4 MG TAB PO SCH (11:52)
[2020-10-25] MEDS: EMTRICITABINE 200 MG CAP PO SCH (11:53)
[2020-10-25] MEDS: TENOFOVIR 300 MG TAB PO SCH (11:53)
[2020-10-25] MEDS: DOLUTEGRAVIR 50 MG TAB PO SCH (11:53)
[2020-10-25] MEDS: CHOLECALCIFEROL (VIT D3) 5,000 UNIT TAB PO SCH (11:55)
[2020-10-25 13:13] LABS: HIV-1 RNA QN PCR 1.39 Log cps/mL
[2020-10-25] MEDS: SODIUM CHLORIDE 0.9% 1000 ML 1,000 ML IV SCH (18:47)
[2020-10-25] MEDS: ENOXAPARIN 40 MG/0.4 ML INJ SUB-Q SCH (21:16)
[2020-10-25] MEDS: REMDESIVIR 100 MG in SODIUM CHLORIDE 0.9% 250ML 250 ML IV SCH (21:31)
[2020-10-25] MEDS: SODIUM CHLORIDE 0.9% 50 ML IVPB IV SCH (21:31)
[2020-10-26] MEDS: WATER IV SCH ×2 (00:41→05:54)
[2020-10-26] MEDS: DEXTROSE 5% IV SCH ×2 (00:41→05:54)
[2020-10-26] MEDS: SMX IV SCH ×2 (00:41→05:54)
[2020-10-26] MEDS: TMP IV SCH ×2 (00:41→05:54)
[2020-10-26 07:38] LABS: Basophils % (Auto) 0.3 % (0.0-1.8); Eosinophils # (Auto) 0.4 K/mm3 (0.0-0.4); Eosinophils % (Auto) 6.3 % (0.0-4.3); Hematocrit 34.4 % (35.5-45.6); Hemoglobin 11.1 gm/dl (11.8-15.2); Lymphocytes # (Auto) 0.8 K/mm3 (1.2-5.4); Mean Corpuscular HGB Conc 32 % (32-34); Mean Corpuscular Volume 79 fl (84-94); Monocytes # (Auto) 0.5 K/mm3 (0.0-0.8); Monocytes % (Auto) 8.8 % (0.0-7.3); Platelet Count 658 K/mm3 (140-440); Red Blood Count 4.36 M/mm3 (3.65-5.03); Red Cell Distribution Width 18.3 % (13.2-15.2)
[2020-10-26 08:00] LABS: BUN/Creatinine Ratio 11; Blood Urea Nitrogen 10 mg/dL (9-20); Calcium 8.5 mg/dL (8.4-10.2); Hemolysis Index 3
--- NOTE | 2020-10-26 09:02 | Progress Note ---
Assessment and Plan Assessment and plan: Bilateral pneumonia: COVID-19 positive Acute hypoxic respiratory failure: On supplemental oxygen HIV and AIDS:ID following Leukopenia: Etiology from COVID-19. 10/23. Continue remdesivir. Continue empiric antibiotics of ceftriaxone and azithromycin per ID recommendations. Empiric IV Bactrim per ID. Continue Biktarvy, therapeutic interchange for formulary to tenofovir, emtricitabine and dolutegravir 10/24. Continue remdesivir. Ceftriaxone and azithromycin was stopped given normal procalcitonin. Doxycycline added per ID recommendations. Empiric IV Bactrim per ID. Continue Biktarvy, therapeutic interchange for formulary to tenofovir, emtricitabine and dolutegravir. 10/25. Remdesivir completion today. Continue empiric IV Bactrim per ID recommendations. Follow-up HIV RNA PCR and CD4 count. Continue Biktarvy, therapeutic interchange for formulary to tenofovir, emtricitabine and dolute gravir. Pt currently with 7L O2. Wean as tolerated 10/26. Patient still requiring 4 L of oxygen. Check pulse oximetry today. Continue HIV medications per ID. History Interval history: No new issues Hospitalist Physical - Constitutional Vitals: Temp Pulse Resp BP Pulse Ox 97.8 F 70 20 101/67 95 10/26/20 04:48 10/26/20 04:48 10/26/20 04:48 10/26/20 04:48 10/26/20 08:22 General appearance: Present: no acute distress, well-nourished - EENT Eyes: Present: PERRL, EOM intact ENT: hearing intact, clear oral mucosa, dentition normal - Neck Neck: Present: supple, normal ROM - Respiratory Respiratory effort: normal Respiratory: bilateral: CTA - Cardiovascular Rhythm: regular Heart Sounds: Present: S1 & S2. Absent: gallop, rub - Extremities Extremities: no ischemia, No edema, Full ROM - Abdominal General gastrointestinal: soft, non-tender, non-distended, normal bowel sounds - Integumentary Integumentary: Present: clear, warm, dry - Neurologic Neurologic: CNII-XII intact, moves all extremities HEART Score - HEART Score Troponin: Troponin T < 0.010 ng/mL (0.00-0.029) 10/21/20 06:51 Results - Labs CBC & Chem 7: 10/26/20 06:55 10/26/20 06:55 Labs: Laboratory Last Values WBC 5.8 K/mm3 (4.5-11.0) 10/26/20 06:55 RBC 4.36 M/mm3 (3.65-5.03) 10/26/20 06:55 Hgb 11.1 gm/dl (11.8-15.2) L 10/26/20 06:55 Hct 34.4 % (35.5-45.6) L 10/26/20 06:55 MCV 79 fl (84-94) L 10/26/20 06:55 MCH 26 pg (28-32) L 10/26/20 06:55 MCHC 32 % (32-34) 10/26/20 06:55 RDW 18.3 % (13.2-15.2) H 10/26/20 06:55 Plt Count 658 K/mm3 (140-440) H 10/26/20 06:55 Lymph % (Auto) 13.0 % (13.4-35.0) L 10/26/20 06:55 [place] % (Auto) 8.8 % (0.0-7.3) H 10/26/20 06:55 Eos % (Auto) 6.3 % (0.0-4.3) H 10/26/20 06:55 Baso % (Auto) 0.3 % (0.0-1.8) 10/26/20 06:55 Lymph # (Auto) 0.8 K/mm3 (1.2-5.4) L 10/26/20 06:55 [place] # (Auto) 0.5 K/mm3 (0.0-0.8) 10/26/20 06:55 Eos # (Auto) 0.4 K/mm3 (0.0-0.4) 10/26/20 06:55 Baso # (Auto) 0.0 K/mm3 (0.0-0.1) 10/26/20 06:55 Seg Neutrophils % 71.6 % (40.0-70.0) H 10/26/20 06:55 Seg Neutrophils # 4.2 K/mm3 (1.8-7.7) 10/26/20 06:55 Abs Lymphs (Manual) 365 cells/uL (850-3900) L 10/21/20 09:41 PT 14.2 Sec. (12.2-14.9) 10/21/20 06:51 INR 1.11 (0.87-1.13) 10/21/20 06:51 D-Dimer 871.02 ng/mlDDU (0-234) H 10/20/20 22:43 Sodium 135 mmol/L (137-145) L 10/26/20 06:55 Potassium 4.2 mmol/L (3.6-5.0) 10/26/20 06:55 Chloride 100.9 mmol/L (98-107) 10/26/20 06:55 Carbon Dioxide 24 mmol/L (22-30) 10/26/20 06:55 Anion Gap 14 mmol/L 10/26/20 06:55 BUN 10 mg/dL (9-20) 10/26/20 06:55 Creatinine 0.9 mg/dL (0.8-1.3) 10/26/20 06:55 Estimated GFR > 60 ml/min 10/26/20 06:55 BUN/Creatinine Ratio 11 % 10/26/20 06:55 Glucose 101 mg/dL (75-100) H 10/26/20 06:55 Calcium 8.5 mg/dL (8.4-10.2) 10/26/20 06:55 Ferritin 204.5 ng/mL (30.0-300.0) 10/20/20 22:43 Total Bilirubin < 0.20 mg/dL (0.1-1.2) 10/24/20 06:36 AST 7 units/L (5-40) 10/24/20 06:36 ALT 5 units/L (7-56) L 10/24/20 06:36 Alkaline Phosphatase 53 units/L (35-129) 10/24/20 06:36 Lactate Dehydrogenase 190 units/L (91-180) H 10/20/20 22:43 Troponin T < 0.010 ng/mL (0.00-0.029) 10/21/20 06:51 C-Reactive Protein 8.10 mg/dL (0.00-1.30) H 10/20/20 22:43 NT-Pro-B Natriuret Pep 324.4 pg/mL (0-450) 10/20/20 20:41 Total Protein 6.6 g/dL (6.3-8.2) 10/24/20 06:36 Albumin 3.0 g/dL (3.9-5) L 10/24/20 06:36 Albumin/Globulin Ratio 0.8 % 10/24/20 06:36 Lipase 16 units/L (13-60) 10/20/20 20:41 Procalcitonin 0.10 ng/mL (<0.15) 10/20/20 22:43 Lymph Enumerat CD4/CD8 0.36 (0.86-5.00) L 10/21/20 09:41 % CD3 Cells 52 % (57-85) L 10/21/20 09:41 Absolute CD3 Count 188 cells/uL (840-3060) L 10/21/20 09:41 % CD4 Cells 13 % (30-61) L 10/21/20 09:41 Absolute CD4 Count 48 cells/uL (490-1740) L 10/21/20 09:41 % CD8 Cells 37 % (12-42) 10/21/20 09:41 Absolute CD8 Count 133 cells/uL (180-1170) L 10/21/20 09:41 % CD19 Cells 26 % (6-29) 10/21/20 09:41 Absolute CD19 Count 97 cells/uL (110-660) L 10/21/20 09:41 Coronavirus (PCR) Positive (Negative) A 10/21/20 Unknown HIV-1 RNA PCR copies/ml 25 Copies/mL H 10/21/20 14:13 HIV-1 RNA (PCR) log 1.39 Log cps/mL H 10/21/20 14:13 Miscellaneous Test Flexitest 1 10/21/20 09:41 Microbiology: Microbiology 10/20/20 22:43 Peripheral/Venous Blood Culture - Final NO GROWTH AFTER 5 DAYS 10/20/20 22:19 Peripheral/Venous Blood Culture - Final NO GROWTH AFTER 5 DAYS Thakur/IV: Voiding Method Toilet Active Medications - Current Medications Current Medications: Generic Name Dose Route Start Last Admin Trade Name Freq PRN Reason Stop Dose Admin Acetaminophen 650 mg 10/20/20 22:35 Acetaminophen 325 Mg Tab PO Q4H PRN Pain MILD(1-3)/Fever >100.5/LIU Ascorbic Acid 1,000 mg 10/22/20 10:00 10/25/20 21:30 Ascorbic Acid 500 Mg Tab PO 1,000 mg BID CEFERINO Administration Cholecalciferol 5,000 unit 10/22/20 10:00 10/25/20 11:55 Cholecalciferol (Vit D3) 5,000 Unit Tab PO 5,000 unit DAILY CEFERINO Administration Dexamethasone 6 mg 10/23/20 10:00 10/25/20 11:52 Dexamethasone 4 Mg Tab PO 10/29/20 12:00 6 mg DAILY CEFERINO Administration Doxycycline Hyclate 100 mg 10/23/20 11:00 10/25/20 21:16 Doxycycline 100 Mg Cap PO 100 mg BID CEFERINO Administration Protocol Emtricitabine 200 mg 10/21/20 16:00 10/25/20 11:53 Emtricitabine 200 Mg Cap PO 200 mg QDAY CEFERINO Administration Enoxaparin Sodium 40 mg 10/21/20 22:00 10/25/20 21:16 Enoxaparin 40 Mg/0.4 Ml Inj SUB-Q 40 mg QDAY@2200 CEFERINO Administration Protocol Famotidine 20 mg 10/22/20 16:30 10/25/20 18:44 Famotidine 20 Mg Tab PO 20 mg BIDAC CEFERINO Administration Hydrocodone Bit/Homatropine Methylb 10 ml 10/22/20 08:02 10/25/20 15:12 Hydrocodone/Homatropine 5-1.5mg /5 Ml Oral Liqd Unit Dose PO 10 ml Q6H PRN Administration Cough Sodium Chloride 1,000 mls @ 75 mls/hr 10/20/20 22:45 10/25/20 18:47 Nacl 0.9% 1000 Ml IV 75 mls/hr DIRECT CEFERINO Administration Magnesium Hydroxide 30 ml 10/20/20 22:35 Magnesium Hydroxide (Mom) Oral Liqd Udc PO Q4H PRN Constipation Morphine Sulfate 2 mg 10/20/20 22:35 Morphine 2 Mg/1 Ml Inj IV Q4H PRN Pain, Moderate (4-6) Ondansetron HCl 4 mg 10/20/20 22:35 Ondansetron 4 Mg/2 Ml Inj IV Q8H PRN Nausea And Vomiting Sodium Chloride 10 ml 10/21/20 10:00 10/25/20 21:31 Sodium Chloride 0.9% 10 Ml Flush Syringe IV 10 ml BID CEFERINO Administration Sodium Chloride 10 ml 10/20/20 22:35 Sodium Chloride 0.9% 10 Ml Flush Syringe IV PRN PRN LINE FLUSH Tenofovir Disoproxil Fumarate 300 mg 10/21/20 16:00 10/25/20 11:53 Tenofovir 300 Mg Tab PO 300 mg QDAY CEFERINO Administration
[2020-10-26] MEDS: ASCORBIC ACID 500 MG TAB PO SCH ×2 (09:59→21:32)
[2020-10-26] MEDS: FAMOTIDINE 20 MG TAB PO SCH ×2 (09:59→17:00)
[2020-10-26] MEDS: TENOFOVIR 300 MG TAB PO SCH (09:59)
[2020-10-26] MEDS: DOLUTEGRAVIR 50 MG TAB PO SCH (09:59)
[2020-10-26] MEDS: DOXYCYCLINE 100 MG CAP PO SCH ×2 (10:00→21:32)
[2020-10-26] MEDS: SODIUM CHLORIDE 0.9% 1000 ML 1,000 ML IV SCH ×2 (10:00→23:53)
[2020-10-26] MEDS: EMTRICITABINE 200 MG CAP PO SCH (10:00)
[2020-10-26] MEDS: CHOLECALCIFEROL (VIT D3) 5,000 UNIT TAB PO SCH (10:00)
[2020-10-26] MEDS: DEXAMETHASONE 4 MG TAB PO SCH (10:00)
--- NOTE | 2020-10-26 13:11 | Progress Note ---
Assessment and Plan Cultures: SARS CoV2 PCR: Positive 10/20/2020 blood culture: In process A/P: 35-year-old male with HIV with: #Bilateral pneumonia: COVID-19 positive #Acute hypoxic respiratory failure: On supplemental oxygen #HIV and AIDS: Supposed to be on Biktarvy, follows with me in clinic however last viral load here in August 2020 was 925K, CD4 count was only 27, 4% suggestive of non-compliance with meds. Viral load now 25, indicating improved compliance with medications. #Leukopenia: Could be from HIV or COVID-19. #Bilateral leg rash: Ddx: [place], bacillary angiomatosis, other rash. recommend skin biopsy Recs: -Recommend skin biopsy of legs, if safe to do while COVID positive. Could be done as outpatient as well. Consulted Dr. Christie. -Stop Doxy -Completed remdesivir. -Fungitell negative, stopped Bactrim. -Continue Biktarvy, therapeutic interchange for formulary to tenofovir, emtricitabine and dolutegravir. Resume Biktarvy on discharge. -OK for DC from ID perspective. Follow up in my office in 2-3 weeks. ID will follow. Dr. Singleton taking over tomorrow. Moses Garcia MD [facility] O: [phone] F: [phone] Subjective Date of service: 10/26/20 Principal diagnosis: Bilateral pneumonia Interval history: Afebrile, normal white count. Viral load 25 Objective - Exam Narrative Exam: Physical exam deferred due to PPE conservation strategy. Please refer to primary team's note. - Constitutional Vitals: Vital Signs Temp Pulse Resp BP Pulse Ox 97.7 F 78 18 102/56 91 10/26/20 11:49 10/26/20 11:54 10/26/20 11:49 10/26/20 11:49 10/26/20 11:54 Temperature -Last 24 Hours Temperature 97.7 F Temperature 97.8 F Temperature 99.0 F - Labs CBC & Chem 7: 10/26/20 06:55 10/26/20 06:55 Labs: Abnormal lab results 10/21/20 10/26/20 10/26/20 Range/Units 14:13 06:55 06:55 Hgb 11.1 L (11.8-15.2) gm/dl Hct 34.4 L (35.5-45.6) % MCV 79 L (84-94) fl MCH 26 L (28-32) pg RDW 18.3 H (13.2-15.2) % Plt Count 658 H (140-440) K/mm3 Lymph % (Auto) 13.0 L (13.4-35.0) % [place] % (Auto) 8.8 H (0.0-7.3) % Eos % (Auto) 6.3 H (0.0-4.3) % Lymph # (Auto) 0.8 L (1.2-5.4) K/mm3 Seg Neutrophils % 71.6 H (40.0-70.0) % Sodium 135 L (137-145) mmol/L Glucose 101 H (75-100) mg/dL HIV-1 RNA PCR copies/ml 25 H Copies/mL HIV-1 RNA (PCR) log 1.39 H Log cps/mL
[2020-10-26] MEDS: ENOXAPARIN 40 MG/0.4 ML INJ SUB-Q SCH (21:33)
--- NOTE | 2020-10-26 21:59 | Consultation ---
History of Present Illness Consult date: 10/26/20 Chief complaint: Bilateral rash on legs - History of present illness History of present illness: 35 yo male with AIDS and bilateral leg rash. ID has recommended a skin biopsy. Pt is also Covid +. Past History Past Medical History: other (HIV positive) Past Surgical History: No surgical history Social history: no significant social history Family history: no significant family history Medications and Allergies Allergies Allergy/AdvReac Type Severity Reaction Status Date / Time No Known Allergies Allergy Verified 12/02/19 14:17 Home Medications Medication Instructions Recorded Confirmed Last Taken Type Ipratropium/Albuterol Sulfate 1 ampul IH Q6HR #120 ampul.neb 02/24/20 08/17/20 Unknown Rx [DUONEB *Not for PRN Use*] predniSONE [Deltasone] 20 mg PO QDAY #5 tablet 02/25/20 08/17/20 Unknown Rx Famotidine [Pepcid] 40 mg PO QHS #5 tablet 02/26/20 08/17/20 Unknown Rx diphenhydrAMINE [Benadryl CAP] 50 mg PO Q8HR PRN #14 capsule 02/26/20 08/17/20 Unknown Rx Dexamethasone [Taperdex] 1.5 mg PO DAILY 7 Days #1 tab.ds.pk 03/14/20 08/17/20 Unknown Rx Promethazine HCl [Promethazine TAB] 12.5 mg PO [id number] PRN #12 tab 05/09/20 08/17/20 Unknown Rx Atovaquone [Mepron] 750 mg PO BID 25 Days ml 08/19/20 Unknown Rx Cefdinir 300 mg PO BID #10 capsule 08/19/20 Unknown Rx Dolutegravir [Tivicay] 50 mg PO QDAY #30 tablet 08/19/20 Unknown Rx Emtricitabine [Emtriva] 200 mg PO QDAY #30 capsule 08/19/20 Unknown Rx Famotidine [Pepcid] 20 mg PO BID #60 tablet 08/19/20 Unknown Rx Tenofovir [Viread] 300 mg PO QDAY #30 tablet 08/19/20 Unknown Rx Active Meds: Active Medications Acetaminophen (Acetaminophen 325 Mg Tab) 650 mg PO Q4H PRN PRN Reason: Pain MILD(1-3)/Fever >100.5/LIU Ascorbic Acid (Ascorbic Acid 500 Mg Tab) 1,000 mg PO BID [facility] Last Admin: 10/26/20 21:32 Dose: 1,000 mg Documented by: Cholecalciferol (Cholecalciferol (Vit D3) 5,000 Unit Tab) 5,000 unit PO DAILY [facility] Last Admin: 10/26/20 10:00 Dose: 5,000 unit Documented by: Dexamethasone (Dexamethasone 4 Mg Tab) 6 mg PO DAILY [facility] Stop: 10/29/20 12:00 Last Admin: 10/26/20 10:00 Dose: 6 mg Documented by: Doxycycline Hyclate (Doxycycline 100 Mg Cap) 100 mg PO BID [facility]; Protocol Last Admin: 10/26/20 21:32 Dose: 100 mg Documented by: Emtricitabine (Emtricitabine 200 Mg Cap) 200 mg PO QDAY [facility] Last Admin: 10/26/20 10:00 Dose: 200 mg Documented by: Enoxaparin Sodium (Enoxaparin 40 Mg/0.4 Ml Inj) 40 mg SUB-Q QDAY@2200 [facility]; Protocol Last Admin: 10/26/20 21:33 Dose: 40 mg Documented by: Famotidine (Famotidine 20 Mg Tab) 20 mg PO BIDAC [facility] Last Admin: 10/26/20 17:00 Dose: 20 mg Documented by: Hydrocodone Bit/Homatropine Methylb (Hydrocodone/Homatropine 5-1.5mg /5 Ml Oral Liqd Unit Dose) 10 ml PO Q6H PRN PRN Reason: Cough Last Admin: 10/25/20 15:12 Dose: 10 ml Documented by: Sodium Chloride (Nacl 0.9% 1000 Ml) 1,000 mls @ 75 mls/hr IV DIRECT [facility] Last Admin: 10/26/20 10:00 Dose: 75 mls/hr Documented by: Magnesium Hydroxide (Magnesium Hydroxide (Mom) Oral Liqd Udc) 30 ml PO Q4H PRN PRN Reason: Constipation Morphine Sulfate (Morphine 2 Mg/1 Ml Inj) 2 mg IV Q4H PRN PRN Reason: Pain, Moderate (4-6) Ondansetron HCl (Ondansetron 4 Mg/2 Ml Inj) 4 mg IV Q8H PRN PRN Reason: Nausea And Vomiting Sodium Chloride (Sodium Chloride 0.9% 10 Ml Flush Syringe) 10 ml IV BID [facility] Last Admin: 10/26/20 21:33 Dose: 10 ml Documented by: Sodium Chloride (Sodium Chloride 0.9% 10 Ml Flush Syringe) 10 ml IV PRN PRN PRN Reason: LINE FLUSH Tenofovir Disoproxil Fumarate (Tenofovir 300 Mg Tab) 300 mg PO QDAY [facility]FER[facility] Last Admin: 10/26/20 09:59 Dose: 300 mg Documented by: Review of Systems All systems: negative (none) Exam Vital Signs Temp Pulse Resp BP Pulse Ox 98.4 F 99 H 18 117/63 93 10/20/20 20:26 10/20/20 20:26 10/20/20 20:26 10/20/20 20:26 10/20/20 20:26 - General physical appearance Positive: well developed, well nourished, no distress - Eyes Positive: PERRL, normal occular movement - ENT Positive: normal pinna, normal nares, normal mucosa, no hearing loss, no congestion - Neck Positive: no masses, no bruits, trachea midline, no venous distension - Respiratory Positive: normal expansion, normal respiratory effort, clear to auscultation - Cardiovascular Rhythm: regular Heart Sounds: Present: S1 & S2. Absent: rub, click - Extremities Extremities: no ischemia, pulses symmetrical, No edema - Breasts Breasts: normal, no mass, no skin changes - Abdomen Abdomen: Present: soft, bowel sounds normal. Absent: tender, distended Hernia: none - Genitourinary Male Genitourinary: normal Female Genitourinary: normal - Integumentary no growths, other (Bilateral leg rash.) - Neurologic Neurologic: alert and oriented to time, place and person, motor strength and sensation are grossly intact - Musculoskeletal normal gait, normal posture - Psychiatric Psychiatric: appropriate mood/affect, intact judgment & insight Results - Labs 10/26/20 06:55 10/26/20 06:55 Abnormal lab results 10/26/20 10/26/20 Range/Units 06:55 06:55 Hgb 11.1 L (11.8-15.2) gm/dl Hct 34.4 L (35.5-45.6) % MCV 79 L (84-94) fl MCH 26 L (28-32) pg RDW 18.3 H (13.2-15.2) % Plt Count 658 H (140-440) K/mm3 Lymph % (Auto) 13.0 L (13.4-35.0) % [place] % (Auto) 8.8 H (0.0-7.3) % Eos % (Auto) 6.3 H (0.0-4.3) % Lymph # (Auto) 0.8 L (1.2-5.4) K/mm3 Seg Neutrophils % 71.6 H (40.0-70.0) % Sodium 135 L (137-145) mmol/L Glucose 101 H (75-100) mg/dL Diabetes panel 10/26/20 Range/Units 06:55 Sodium 135 L (137-145) mmol/L Potassium 4.2 (3.6-5.0) mmol/L Chloride 100.9 (98-107) mmol/L Carbon Dioxide 24 (22-30) mmol/L BUN 10 (9-20) mg/dL Creatinine 0.9 (0.8-1.3) mg/dL Glucose 101 H (75-100) mg/dL Calcium 8.5 (8.4-10.2) mg/dL Calcium panel 10/26/20 Range/Units 06:55 Calcium 8.5 (8.4-10.2) mg/dL Pituitary panel 10/26/20 Range/Units 06:55 Sodium 135 L (137-145) mmol/L Potassium 4.2 (3.6-5.0) mmol/L Chloride 100.9 (98-107) mmol/L Carbon Dioxide 24 (22-30) mmol/L BUN 10 (9-20) mg/dL Creatinine 0.9 (0.8-1.3) mg/dL Glucose 101 H (75-100) mg/dL Calcium 8.5 (8.4-10.2) mg/dL Adrenal panel 10/26/20 Range/Units 06:55 Sodium 135 L (137-145) mmol/L Potassium 4.2 (3.6-5.0) mmol/L Chloride 100.9 (98-107) mmol/L Carbon Dioxide 24 (22-30) mmol/L BUN 10 (9-20) mg/dL Creatinine 0.9 (0.8-1.3) mg/dL Glucose 101 H (75-100) mg/dL Calcium 8.5 (8.4-10.2) mg/dL Assessment and Plan - Patient Problems (1) Kaposi dermatosis Current Visit: Yes Status: Acute Plan to address problem: 1) Pt can f/u in my office in 2 weeks for skin biopsy. This is appropriate per ID.
[2020-10-26] MEDS: HYDROcodone/HOMATROPINE 5-1.5MG /5 ML ORAL LIQD UNIT DOSE PO PRN (23:54)
[2020-10-27 07:07] LABS: Basophils % (Auto) 0.4 % (0.0-1.8); Eosinophils # (Auto) 0.3 K/mm3 (0.0-0.4); Eosinophils % (Auto) 5.9 % (0.0-4.3); Hematocrit 34.4 % (35.5-45.6); Hemoglobin 11.3 gm/dl (11.8-15.2); Lymphocytes % (Auto) 17.6 % (13.4-35.0); Mean Corpuscular HGB Conc 33 % (32-34); Mean Corpuscular Volume 81 fl (84-94); Monocytes # (Auto) 0.6 K/mm3 (0.0-0.8); Monocytes % (Auto) 10.9 % (0.0-7.3); Platelet Count 600 K/mm3 (140-440); Red Blood Count 4.26 M/mm3 (3.65-5.03); Red Cell Distribution Width 17.9 % (13.2-15.2)
[2020-10-27 07:17] LABS: BUN/Creatinine Ratio 16; Blood Urea Nitrogen 14 mg/dL (9-20); Calcium 8.9 mg/dL (8.4-10.2); Hemolysis Index 0
[2020-10-27] MEDS: FAMOTIDINE 20 MG TAB PO SCH ×2 (08:45→17:43)
--- NOTE | 2020-10-27 10:16 | Progress Note ---
Assessment and Plan Assessment and plan: Bilateral pneumonia: COVID-19 positive Acute hypoxic respiratory failure: On supplemental oxygen HIV and AIDS:ID following Kaposi dermatosis. Skin biopsy per surgery Leukopenia: Etiology from COVID-19. 10/23. Continue remdesivir. Continue empiric antibiotics of ceftriaxone and azithromycin per ID recommendations. Empiric IV Bactrim per ID. Continue Biktarvy, therapeutic interchange for formulary to tenofovir, emtricitabine and dolutegravir 10/24. Continue remdesivir. Ceftriaxone and azithromycin was stopped given normal procalcitonin. Doxycycline added per ID recommendations. Empiric IV Bactrim per ID. Continue Biktarvy, therapeutic interchange for formulary to tenofovir, emtricitabine and dolutegravir. 10/25. Remdesivir completion today. Continue empiric IV Bactrim per ID recomm endations. Follow-up HIV RNA PCR and CD4 count. Continue Biktarvy, therapeutic interchange for formulary to tenofovir, emtricitabine and dolutegravir. Pt currently with 7L O2. Wean as tolerated 10/26. Patient still requiring 4 L of oxygen. Check pulse oximetry today. Continue HIV medications per ID. 10/27. Patient still requiring moderate amounts of oxygen with 4 L only satting 90%. S/p skin biopsy per surgery. ID following. History Interval history: No new issues Hospitalist Physical - Constitutional Vitals: Temp Pulse Resp BP Pulse Ox 97.3 F L 64 18 101/72 96 10/27/20 05:10 10/27/20 05:10 10/27/20 05:10 10/27/20 05:10 10/27/20 05:10 General appearance: Present: no acute distress, well-nourished - EENT Eyes: Present: PERRL, EOM intact ENT: hearing intact, clear oral mucosa, dentition normal - Neck Neck: Present: supple, normal ROM - Respiratory Respiratory effort: normal Respiratory: bilateral: CTA - Cardiovascular Rhythm: regular Heart Sounds: Present: S1 & S2. Absent: gallop, rub - Extremities Extremities: no ischemia, No edema, Full ROM - Abdominal General gastrointestinal: soft, non-tender, non-distended, normal bowel sounds - Integumentary Integumentary: Present: clear, warm, dry - Neurologic Neurologic: CNII-XII intact, moves all extremities HEART Score - HEART Score Troponin: Troponin T < 0.010 ng/mL (0.00-0.029) 10/21/20 06:51 Results - Labs CBC & Chem 7: 10/27/20 06:15 10/27/20 06:15 Labs: Laboratory Last Values WBC 5.6 K/mm3 (4.5-11.0) 10/27/20 06:15 RBC 4.26 M/mm3 (3.65-5.03) 10/27/20 06:15 Hgb 11.3 gm/dl (11.8-15.2) L 10/27/20 06:15 Hct 34.4 % (35.5-45.6) L 10/27/20 06:15 MCV 81 fl (84-94) L 10/27/20 06:15 MCH 27 pg (28-32) L 10/27/20 06:15 MCHC 33 % (32-34) 10/27/20 06:15 RDW 17.9 % (13.2-15.2) H 10/27/20 06:15 Plt Count 600 K/mm3 (140-440) H 10/27/20 06:15 Lymph % (Auto) 17.6 % (13.4-35.0) 10/27/20 06:15 [place] % (Auto) 10.9 % (0.0-7.3) H 10/27/20 06:15 Eos % (Auto) 5.9 % (0.0-4.3) H 10/27/20 06:15 Baso % (Auto) 0.4 % (0.0-1.8) 10/27/20 06:15 Lymph # (Auto) 1.0 K/mm3 (1.2-5.4) L 10/27/20 06:15 [place] # (Auto) 0.6 K/mm3 (0.0-0.8) 10/27/20 06:15 Eos # (Auto) 0.3 K/mm3 (0.0-0.4) 10/27/20 06:15 Baso # (Auto) 0.0 K/mm3 (0.0-0.1) 10/27/20 06:15 Seg Neutrophils % 65.2 % (40.0-70.0) 10/27/20 06:15 Seg Neutrophils # 3.6 K/mm3 (1.8-7.7) 10/27/20 06:15 Abs Lymphs (Manual) 365 cells/uL (850-3900) L 10/21/20 09:41 PT 14.2 Sec. (12.2-14.9) 10/21/20 06:51 INR 1.11 (0.87-1.13) 10/21/20 06:51 D-Dimer 871.02 ng/mlDDU (0-234) H 10/20/20 22:43 Sodium 134 mmol/L (137-145) L 10/27/20 06:15 Potassium 4.8 mmol/L (3.6-5.0) 10/27/20 06:15 Chloride 100.0 mmol/L (98-107) 10/27/20 06:15 Carbon Dioxide 29 mmol/L (22-30) 10/27/20 06:15 Anion Gap 10 mmol/L 10/27/20 06:15 BUN 14 mg/dL (9-20) 10/27/20 06:15 Creatinine 0.9 mg/dL (0.8-1.3) 10/27/20 06:15 Estimated GFR > 60 ml/min 10/27/20 06:15 BUN/Creatinine Ratio 16 % 10/27/20 06:15 Glucose 88 mg/dL (75-100) 10/27/20 06:15 Calcium 8.9 mg/dL (8.4-10.2) 10/27/20 06:15 Ferritin 204.5 ng/mL (30.0-300.0) 10/20/20 22:43 Total Bilirubin < 0.20 mg/dL (0.1-1.2) 10/24/20 06:36 AST 7 units/L (5-40) 10/24/20 06:36 ALT 5 units/L (7-56) L 10/24/20 06:36 Alkaline Phosphatase 53 units/L (35-129) 10/24/20 06:36 Lactate Dehydrogenase 190 units/L (91-180) H 10/20/20 22:43 Troponin T < 0.010 ng/mL (0.00-0.029) 10/21/20 06:51 C-Reactive Protein 8.10 mg/dL (0.00-1.30) H 10/20/20 22:43 NT-Pro-B Natriuret Pep 324.4 pg/mL (0-450) 10/20/20 20:41 Total Protein 6.6 g/dL (6.3-8.2) 10/24/20 06:36 Albumin 3.0 g/dL (3.9-5) L 10/24/20 06:36 Albumin/Globulin Ratio 0.8 % 10/24/20 06:36 Lipase 16 units/L (13-60) 10/20/20 20:41 Procalcitonin 0.10 ng/mL (<0.15) 10/20/20 22:43 Lymph Enumerat CD4/CD8 0.36 (0.86-5.00) L 10/21/20 09:41 % CD3 Cells 52 % (57-85) L 10/21/20 09:41 Absolute CD3 Count 188 cells/uL (840-3060) L 10/21/20 09:41 % CD4 Cells 13 % (30-61) L 10/21/20 09:41 Absolute CD4 Count 48 cells/uL (490-1740) L 10/21/20 09:41 % CD8 Cells 37 % (12-42) 10/21/20 09:41 Absolute CD8 Count 133 cells/uL (180-1170) L 10/21/20 09:41 % CD19 Cells 26 % (6-29) 10/21/20 09:41 Absolute CD19 Count 97 cells/uL (110-660) L 10/21/20 09:41 Coronavirus (PCR) Positive (Negative) A 10/21/20 Unknown HIV-1 RNA PCR copies/ml 25 Copies/mL H 10/21/20 14:13 HIV-1 RNA (PCR) log 1.39 Log cps/mL H 10/21/20 14:13 Miscellaneous Test Flexitest 1 10/21/20 09:41 Microbiology: Microbiology 10/21/20 01:29 Nares - Right MRSA Culture - Preliminary Thakur/IV: Voiding Method Toilet Active Medications - Current Medications Current Medications: Generic Name Dose Route Start Last Admin Trade Name Freq PRN Reason Stop Dose Admin Acetaminophen 650 mg 10/20/20 22:35 Acetaminophen 325 Mg Tab PO Q4H PRN Pain MILD(1-3)/Fever >100.5/LIU Ascorbic Acid 1,000 mg 10/22/20 10:00 10/26/20 21:32 Ascorbic Acid 500 Mg Tab PO 1,000 mg BID CEFERINO Administration Cholecalciferol 5,000 unit 10/22/20 10:00 10/26/20 10:00 Cholecalciferol (Vit D3) 5,000 Unit Tab PO 5,000 unit DAILY [facility]FERINO Administration Dexamethasone 6 mg 10/23/20 10:00 10/26/20 10:00 Dexamethasone 4 Mg Tab PO 10/29/20 12:00 6 mg DAILY CEFERINO Administration Emtricitabine 200 mg 10/21/20 16:00 10/26/20 10:00 Emtricitabine 200 Mg Cap PO 200 mg QDAY CEFERINO Administration Enoxaparin Sodium 40 mg 10/21/20 22:00 10/26/20 21:33 Enoxaparin 40 Mg/0.4 Ml Inj SUB-Q 40 mg QDAY@2200 CEFERINO Administration Protocol Famotidine 20 mg 10/22/20 16:30 10/27/20 08:45 Famotidine 20 Mg Tab PO 20 mg BIDAC CEFERINO Administration Hydrocodone Bit/Homatropine Methylb 10 ml 10/22/20 08:02 10/26/20 23:54 Hydrocodone/Homatropine 5-1.5mg /5 Ml Oral Liqd Unit Dose PO 10 ml Q6H PRN Administration Cough Sodium Chloride 1,000 mls @ 75 mls/hr 10/20/20 22:45 10/26/20 23:53 Nacl 0.9% 1000 Ml IV 75 mls/hr DIRECT CEFERINO Administration Magnesium Hydroxide 30 ml 10/20/20 22:35 Magnesium Hydroxide (Mom) Oral Liqd Udc PO Q4H PRN Constipation Morphine Sulfate 2 mg 10/20/20 22:35 Morphine 2 Mg/1 Ml Inj IV Q4H PRN Pain, Moderate (4-6) Ondansetron HCl 4 mg 10/20/20 22:35 Ondansetron 4 Mg/2 Ml Inj IV Q8H PRN Nausea And Vomiting Sodium Chloride 10 ml 10/21/20 10:00 10/26/20 21:33 Sodium Chloride 0.9% 10 Ml Flush Syringe IV 10 ml BID CEFERINO Administration Sodium Chloride 10 ml 10/20/20 22:35 Sodium Chloride 0.9% 10 Ml Flush Syringe IV PRN PRN LINE FLUSH Tenofovir Disoproxil Fumarate 300 mg 10/21/20 16:00 10/26/20 09:59 Tenofovir 300 Mg Tab PO 300 mg QDAY CEFERINO Administration Nutrition/Malnutrition Assess - Dietary Evaluation Nutrition/Malnutrition Findings: Nutrition Notes Start: 10/26/20 11:33 Freq: Status: Active Protocol: Document 10/26/20 11:33 AB (Rec: 10/26/20 12:02 AB [id number]) Co-Sign 10/26/20 11:33 CW Nutrition Notes Need for Assessment generated from: LOS Initial or Follow up Assessment Current Diagnosis Acute Kidney Injury,Sepsis Other Pertinent Diagnosis COVID (+), pneu, anemia, AIDS Current Diet Regular Labs/Tests Na 135 Pertinent Medications Decadron Height 5 ft 8 in Weight 87.5 kg Usual Body Weight 81.8 kg [place] Body Weight (kg) 70.00 BMI 29.3 Intake Prior to Admission Good Weight change and time frame 7% wt increase in unknown time frame Weight Status Overweight Subjective/Other Information Screen for LOS. Pt reports eating 25-75% of meals d/t not liking the food here. [employer] pt stated that he was eating well and he had a good appetite. No appetite changes since admission. Pt reports wt gain in unknown time frame. Per chart, pt has 2+ edema and rash on legs. Percent of energy/protein needs met: 50%/64% Burn Absent Trauma Absent GI Symptoms None Food Allergy No Current % PO Fair (50-74%) Minimum of two criteria No Fluid Accumulation Moderate to Severe (severe) #1 Nutrition Diagnosis Inadequate oral intake Etiology COVID (+) As Evidenced by Signs and Symptoms Pt reports meal intakes of 25- 75%, which is meeting 50%/64% of energy/protein needs Is patient on ventilator? No Is Patient Ambulatory and/or Out of Bed Yes REE-([place]-St. Jeor-ambulatory/OOB) [ 2306.850 [id number]] Calculation Used for Recommendations [facility] Additional Notes Protein needs: 70-88 g (0.8-1 g/kg) Fluid needs: 1 ml/kcal Nutrition Intervention Change Diet Order: Continue current diet order Add Supplement/Snack (indicate name/kcal Ensure Enlive BID /protein ) Provides kCal: 700 Provides Protein (gm) 40 Goal #1 Meet at least 75% of energy and protein needs via PO and ONS Anticipated Discharge Needs: Regular diet Follow-Up By: 10/30/20 Additional Comments F/U for intakes and ONS tolerance
[2020-10-27] MEDS: CHOLECALCIFEROL (VIT D3) 5,000 UNIT TAB PO SCH (10:50)
[2020-10-27] MEDS: DEXAMETHASONE 4 MG TAB PO SCH (10:50)
[2020-10-27] MEDS: EMTRICITABINE 200 MG CAP PO SCH (10:51)
[2020-10-27] MEDS: ASCORBIC ACID 500 MG TAB PO SCH ×2 (10:51→22:00)
[2020-10-27] MEDS: DOLUTEGRAVIR 50 MG TAB PO SCH (10:52)
[2020-10-27] MEDS: TENOFOVIR 300 MG TAB PO SCH (10:52)
[2020-10-27] MEDS: SODIUM CHLORIDE 0.9% 1000 ML 1,000 ML IV SCH (13:08)
[2020-10-27] MEDS: ENOXAPARIN 40 MG/0.4 ML INJ SUB-Q SCH (22:00)
[2020-10-28] MEDS: FAMOTIDINE 20 MG TAB PO SCH ×2 (08:47→17:01)
--- NOTE | 2020-10-28 08:59 | Progress Note ---
Assessment and Plan Assessment and plan: Bilateral pneumonia: COVID-19 positive Acute hypoxic respiratory failure: On supplemental oxygen HIV and AIDS:ID following [place] dermatosis. Skin biopsy per surgery Leukopenia: Etiology from COVID-19. 10/23. Continue remdesivir. Continue empiric antibiotics of ceftriaxone and azithromycin per ID recommendations. Empiric IV Bactrim per ID. Continue Biktarvy, therapeutic interchange for formulary to tenofovir, emtricitabine and dolutegravir 10/24. Continue remdesivir. Ceftriaxone and azithromycin was stopped given normal procalcitonin. Doxycycline added per ID recommendations. Empiric IV Bactrim per ID. Continue Biktarvy, therapeutic interchange for formulary to tenofovir, emtricitabine and dolutegravir. 10/25. Remdesivir completion today. Continue empiric IV Bactrim per ID recomm endations. Follow-up HIV RNA PCR and CD4 count. Continue Biktarvy, therapeutic interchange for formulary to tenofovir, emtricitabine and dolutegravir. Pt currently with 7L O2. Wean as tolerated 10/26. Patient still requiring 4 L of oxygen. Check pulse oximetry today. Continue HIV medications per ID. 10/27. Patient still requiring moderate amounts of oxygen with 4 L only satting 90%. S/p skin biopsy per surgery. ID following. 10/28. Patient's oxygenation improved with 4 L satting at 94%. Patient still needs weaning with oxygen. ID following. Follow-up with general surgery as an outpatient for skin biopsy. History Interval history: No new issues Hospitalist Physical - Constitutional Vitals: Temp Pulse Resp BP Pulse Ox 98.0 F 63 18 96/61 98 10/28/20 05:29 10/28/20 05:29 10/28/20 05:29 10/28/20 05:29 10/28/20 05:29 General appearance: Present: no acute distress, well-nourished - EENT Eyes: Present: PERRL, EOM intact ENT: hearing intact, clear oral mucosa, dentition normal - Neck Neck: Present: supple, normal ROM - Respiratory Respiratory effort: normal Respiratory: bilateral: CTA - Cardiovascular Rhythm: regular Heart Sounds: Present: S1 & S2. Absent: gallop, rub - Extremities Extremities: no ischemia, No edema, Full ROM - Abdominal General gastrointestinal: soft, non-tender, non-distended, normal bowel sounds - Integumentary Integumentary: Present: clear, warm, dry - Neurologic Neurologic: CNII-XII intact, moves all extremities HEART Score - HEART Score Troponin: Troponin T < 0.010 ng/mL (0.00-0.029) 10/21/20 06:51 Results - Labs CBC & Chem 7: 10/27/20 06:15 10/27/20 06:15 Labs: Laboratory Last Values WBC 5.6 K/mm3 (4.5-11.0) 10/27/20 06:15 RBC 4.26 M/mm3 (3.65-5.03) 10/27/20 06:15 Hgb 11.3 gm/dl (11.8-15.2) L 10/27/20 06:15 Hct 34.4 % (35.5-45.6) L 10/27/20 06:15 MCV 81 fl (84-94) L 10/27/20 06:15 MCH 27 pg (28-32) L 10/27/20 06:15 MCHC 33 % (32-34) 10/27/20 06:15 RDW 17.9 % (13.2-15.2) H 10/27/20 06:15 Plt Count 600 K/mm3 (140-440) H 10/27/20 06:15 Lymph % (Auto) 17.6 % (13.4-35.0) 10/27/20 06:15 [place] % (Auto) 10.9 % (0.0-7.3) H 10/27/20 06:15 Eos % (Auto) 5.9 % (0.0-4.3) H 10/27/20 06:15 Baso % (Auto) 0.4 % (0.0-1.8) 10/27/20 06:15 Lymph # (Auto) 1.0 K/mm3 (1.2-5.4) L 10/27/20 06:15 [place] # (Auto) 0.6 K/mm3 (0.0-0.8) 10/27/20 06:15 Eos # (Auto) 0.3 K/mm3 (0.0-0.4) 10/27/20 06:15 Baso # (Auto) 0.0 K/mm3 (0.0-0.1) 10/27/20 06:15 Seg Neutrophils % 65.2 % (40.0-70.0) 10/27/20 06:15 Seg Neutrophils # 3.6 K/mm3 (1.8-7.7) 10/27/20 06:15 Abs Lymphs (Manual) 365 cells/uL (850-3900) L 10/21/20 09:41 PT 14.2 Sec. (12.2-14.9) 10/21/20 06:51 INR 1.11 (0.87-1.13) 10/21/20 06:51 D-Dimer 871.02 ng/mlDDU (0-234) H 10/20/20 22:43 Sodium 134 mmol/L (137-145) L 10/27/20 06:15 Potassium 4.8 mmol/L (3.6-5.0) 10/27/20 06:15 Chloride 100.0 mmol/L (98-107) 10/27/20 06:15 Carbon Dioxide 29 mmol/L (22-30) 10/27/20 06:15 Anion Gap 10 mmol/L 10/27/20 06:15 BUN 14 mg/dL (9-20) 10/27/20 06:15 Creatinine 0.9 mg/dL (0.8-1.3) 10/27/20 06:15 Estimated GFR > 60 ml/min 10/27/20 06:15 BUN/Creatinine Ratio 16 % 10/27/20 06:15 Glucose 88 mg/dL (75-100) 10/27/20 06:15 Calcium 8.9 mg/dL (8.4-10.2) 10/27/20 06:15 Ferritin 204.5 ng/mL (30.0-300.0) 10/20/20 22:43 Total Bilirubin < 0.20 mg/dL (0.1-1.2) 10/24/20 06:36 AST 7 units/L (5-40) 10/24/20 06:36 ALT 5 units/L (7-56) L 10/24/20 06:36 Alkaline Phosphatase 53 units/L (35-129) 10/24/20 06:36 Lactate Dehydrogenase 190 units/L (91-180) H 10/20/20 22:43 Troponin T < 0.010 ng/mL (0.00-0.029) 10/21/20 06:51 C-Reactive Protein 8.10 mg/dL (0.00-1.30) H 10/20/20 22:43 NT-Pro-B Natriuret Pep 324.4 pg/mL (0-450) 10/20/20 20:41 Total Protein 6.6 g/dL (6.3-8.2) 10/24/20 06:36 Albumin 3.0 g/dL (3.9-5) L 10/24/20 06:36 Albumin/Globulin Ratio 0.8 % 10/24/20 06:36 Lipase 16 units/L (13-60) 10/20/20 20:41 Procalcitonin 0.10 ng/mL (<0.15) 10/20/20 22:43 Lymph Enumerat CD4/CD8 0.36 (0.86-5.00) L 10/21/20 09:41 % CD3 Cells 52 % (57-85) L 10/21/20 09:41 Absolute CD3 Count 188 cells/uL (840-3060) L 10/21/20 09:41 % CD4 Cells 13 % (30-61) L 10/21/20 09:41 Absolute CD4 Count 48 cells/uL (490-1740) L 10/21/20 09:41 % CD8 Cells 37 % (12-42) 10/21/20 09:41 Absolute CD8 Count 133 cells/uL (180-1170) L 10/21/20 09:41 % CD19 Cells 26 % (6-29) 10/21/20 09:41 Absolute CD19 Count 97 cells/uL (110-660) L 10/21/20 09:41 Coronavirus (PCR) Positive (Negative) A 10/21/20 Unknown HIV-1 RNA PCR copies/ml 25 Copies/mL H 10/21/20 14:13 HIV-1 RNA (PCR) log 1.39 Log cps/mL H 10/21/20 14:13 Miscellaneous Test Flexitest 1 10/21/20 09:41 Microbiology: Microbiology 10/21/20 01:29 Nares - Right MRSA Culture - Final Thakur/IV: Voiding Method Toilet Active Medications - Current Medications Current Medications: Generic Name Dose Route Start Last Admin Trade Name Freq PRN Reason Stop Dose Admin Acetaminophen 650 mg 10/20/20 22:35 Acetaminophen 325 Mg Tab PO Q4H PRN Pain MILD(1-3)/Fever >100.5/LIU Ascorbic Acid 1,000 mg 10/22/20 10:00 10/27/20 22:00 Ascorbic Acid 500 Mg Tab PO 1,000 mg BID CEFERINO Administration Cholecalciferol 5,000 unit 10/22/20 10:00 10/27/20 10:50 Cholecalciferol (Vit D3) 5,000 Unit Tab PO 5,000 unit DAILY CEFERINO Administration Dexamethasone 6 mg 10/23/20 10:00 10/27/20 10:50 Dexamethasone 4 Mg Tab PO 10/29/20 12:00 6 mg DAILY CEFERINO Administration Emtricitabine 200 mg 10/21/20 16:00 10/27/20 10:51 Emtricitabine 200 Mg Cap PO 200 mg QDAY CEFERINO Administration Enoxaparin Sodium 40 mg 10/21/20 22:00 10/27/20 22:00 Enoxaparin 40 Mg/0.4 Ml Inj SUB-Q 40 mg QDAY@2200 CEFERINO Administration Protocol Famotidine 20 mg 10/22/20 16:30 10/28/20 08:47 Famotidine 20 Mg Tab PO 20 mg BIDAC CEFERINO Administration Hydrocodone Bit/Homatropine Methylb 10 ml 10/22/20 08:02 10/26/20 23:54 Hydrocodone/Homatropine 5-1.5mg /5 Ml Oral Liqd Unit Dose PO 10 ml Q6H PRN Administration Cough Sodium Chloride 1,000 mls @ 75 mls/hr 10/20/20 22:45 10/27/20 13:08 Nacl 0.9% 1000 Ml IV 75 mls/hr DIRECT CEFERINO Administration Magnesium Hydroxide 30 ml 10/20/20 22:35 Magnesium Hydroxide (Mom) Oral Liqd Udc PO Q4H PRN Constipation Morphine Sulfate 2 mg 10/20/20 22:35 Morphine 2 Mg/1 Ml Inj IV Q4H PRN Pain, Moderate (4-6) Ondansetron HCl 4 mg 10/20/20 22:35 Ondansetron 4 Mg/2 Ml Inj IV Q8H PRN Nausea And Vomiting Sodium Chloride 10 ml 10/21/20 10:00 10/27/20 22:00 Sodium Chloride 0.9% 10 Ml Flush Syringe IV 10 ml BID CEFERINO Administration Sodium Chloride 10 ml 10/20/20 22:35 Sodium Chloride 0.9% 10 Ml Flush Syringe IV PRN PRN LINE FLUSH Tenofovir Disoproxil Fumarate 300 mg 10/21/20 16:00 10/27/20 10:52 Tenofovir 300 Mg Tab PO 300 mg QDAY CEFERINO Administration Nutrition/Malnutrition Assess - Dietary Evaluation Nutrition/Malnutrition Findings: Nutrition Notes Start: 10/26/20 11:33 Freq: Status: Active Protocol: Document 10/26/20 11:33 AB (Rec: 10/26/20 12:02 AB [id number]) Co-Sign 10/26/20 11:33 CW Nutrition Notes Need for Assessment generated from: LOS Initial or Follow up Assessment Current Diagnosis Acute Kidney Injury,Sepsis Other Pertinent Diagnosis COVID (+), pneu, anemia, AIDS Current Diet Regular Labs/Tests Na 135 Pertinent Medications Decadron Height 5 ft 8 in Weight 87.5 kg Usual Body Weight 81.8 kg [place] Body Weight (kg) 70.00 BMI 29.3 Intake Prior to Admission Good Weight change and time frame 7% wt increase in unknown time frame Weight Status Overweight Subjective/Other Information Screen for LOS. Pt reports eating 25-75% of meals d/t not liking the food here. [employer] [employer] pt stated that he was eating well and he had a good appetite. No appetite changes since admission. Pt reports wt gain in unknown time frame. Per chart, pt has 2+ edema and rash on legs. Percent of energy/protein needs met: 50%/64% Burn Absent Trauma Absent GI Symptoms None Food Allergy No Current % PO Fair (50-74%) Minimum of two criteria No Fluid Accumulation Moderate to Severe (severe) #1 Nutrition Diagnosis Inadequate oral intake Etiology COVID (+) As Evidenced by Signs and Symptoms Pt reports meal intakes of 25- 75%, which is meeting 50%/64% of energy/protein needs Is patient on ventilator? No Is Patient Ambulatory and/or Out of Bed Yes REE-([place]. Jeor-ambulatory/OOB) [ 2266.850 NUTR.MSJOOB] [facility] Additional Notes Protein needs: 70-88 g (0.8-1 g/kg) Fluid needs: 1 ml/kcal Nutrition Intervention Change Diet Order: Continue current diet order Add Supplement/Snack (indicate name/kcal Ensure Enlive BID /protein ) Provides kCal: 700 Provides Protein (gm) 40 Goal #1 Meet at least 75% of energy and protein needs via PO and ONS Anticipated Discharge Needs: Regular diet Follow-Up By: 10/30/20 Additional Comments F/U for intakes and ONS tolerance
[2020-10-28] MEDS: CHOLECALCIFEROL (VIT D3) 5,000 UNIT TAB PO SCH (09:40)
[2020-10-28] MEDS: ASCORBIC ACID 500 MG TAB PO SCH ×2 (09:40→22:03)
[2020-10-28] MEDS: DEXAMETHASONE 4 MG TAB PO SCH (09:40)
[2020-10-28] MEDS: EMTRICITABINE 200 MG CAP PO SCH (09:40)
[2020-10-28] MEDS: TENOFOVIR 300 MG TAB PO SCH (12:18)
[2020-10-28] MEDS: DOLUTEGRAVIR 50 MG TAB PO SCH (12:18)
[2020-10-28] MEDS: SODIUM CHLORIDE 0.9% 1000 ML 1,000 ML IV SCH (17:05)
[2020-10-28] MEDS: ENOXAPARIN 40 MG/0.4 ML INJ SUB-Q SCH (22:03)
[2020-10-29] MEDS: SODIUM CHLORIDE 0.9% 1000 ML 1,000 ML IV SCH (05:50)
--- NOTE | 2020-10-29 08:27 | Progress Note ---
Assessment and Plan Assessment and plan: Bilateral pneumonia: COVID-19 positive Acute hypoxic respiratory failure: On supplemental oxygen HIV and AIDS:ID following Kaposi dermatosis. Skin biopsy per surgery Leukopenia: Etiology from COVID-19. 10/23. Continue remdesivir. Continue empiric antibiotics of ceftriaxone and azithromycin per ID recommendations. Empiric IV Bactrim per ID. Continue Biktarvy, therapeutic interchange for formulary to tenofovir, emtricitabine and dolutegravir 10/24. Continue remdesivir. Ceftriaxone and azithromycin was stopped given normal procalcitonin. Doxycycline added per ID recommendations. Empiric IV Bactrim per ID. Continue Biktarvy, therapeutic interchange for formulary to tenofovir, emtricitabine and dolutegravir. 10/25. Remdesivir completion today. Continue empiric IV Bactrim per ID recomm endations. Follow-up HIV RNA PCR and CD4 count. Continue Biktarvy, therapeutic interchange for formulary to tenofovir, emtricitabine and dolutegravir. Pt currently with 7L O2. Wean as tolerated 10/26. Patient still requiring 4 L of oxygen. Check pulse oximetry today. Continue HIV medications per ID. 10/27. Patient still requiring moderate amounts of oxygen with 4 L only satting 90%. S/p skin biopsy per surgery. ID following. 10/28. Patient's oxygenation improved with 4 L satting at 94%. Patient still needs weaning with oxygen. ID following. Follow-up with general surgery as an outpatient for skin biopsy. 10/29. Bactrim and doxycycline have been discontinued and remdesivir completed. Patient O2 requirements are decreased. Perform walk test to determine home O2 needs. Anticipate discharge later today or in a.m. History Interval history: No new issues Hospitalist Physical - Constitutional Vitals: Temp Pulse Resp BP Pulse Ox 97.8 F 62 18 106/63 97 10/29/20 05:51 10/29/20 05:51 10/29/20 05:51 10/29/20 05:51 10/29/20 05:51 General appearance: Present: no acute distress, well-nourished - EENT Eyes: Present: PERRL, EOM intact ENT: hearing intact, clear oral mucosa, dentition normal - Neck Neck: Present: supple, normal ROM - Respiratory Respiratory effort: normal Respiratory: bilateral: CTA - Cardiovascular Rhythm: regular Heart Sounds: Present: S1 & S2. Absent: gallop, rub - Extremities Extremities: no ischemia, No edema, Full ROM - Abdominal General gastrointestinal: soft, non-tender, non-distended, normal bowel sounds - Integumentary Integumentary: Present: clear, warm, dry - Neurologic Neurologic: CNII-XII intact, moves all extremities HEART Score - HEART Score Troponin: Troponin T < 0.010 ng/mL (0.00-0.029) 10/21/20 06:51 Results - Labs CBC & Chem 7: 10/27/20 06:15 10/27/20 06:15 Labs: Laboratory Last Values WBC 5.6 K/mm3 (4.5-11.0) 10/27/20 06:15 RBC 4.26 M/mm3 (3.65-5.03) 10/27/20 06:15 Hgb 11.3 gm/dl (11.8-15.2) L 10/27/20 06:15 Hct 34.4 % (35.5-45.6) L 10/27/20 06:15 MCV 81 fl (84-94) L 10/27/20 06:15 MCH 27 pg (28-32) L 10/27/20 06:15 MCHC 33 % (32-34) 10/27/20 06:15 RDW 17.9 % (13.2-15.2) H 10/27/20 06:15 Plt Count 600 K/mm3 (140-440) H 10/27/20 06:15 Lymph % (Auto) 17.6 % (13.4-35.0) 10/27/20 06:15 [place] % (Auto) 10.9 % (0.0-7.3) H 10/27/20 06:15 Eos % (Auto) 5.9 % (0.0-4.3) H 10/27/20 06:15 Baso % (Auto) 0.4 % (0.0-1.8) 10/27/20 06:15 Lymph # (Auto) 1.0 K/mm3 (1.2-5.4) L 10/27/20 06:15 [place] # (Auto) 0.6 K/mm3 (0.0-0.8) 10/27/20 06:15 Eos # (Auto) 0.3 K/mm3 (0.0-0.4) 10/27/20 06:15 Baso # (Auto) 0.0 K/mm3 (0.0-0.1) 10/27/20 06:15 Seg Neutrophils % 65.2 % (40.0-70.0) 10/27/20 06:15 Seg Neutrophils # 3.6 K/mm3 (1.8-7.7) 10/27/20 06:15 Abs Lymphs (Manual) 365 cells/uL (850-3900) L 10/21/20 09:41 PT 14.2 Sec. (12.2-14.9) 10/21/20 06:51 INR 1.11 (0.87-1.13) 10/21/20 06:51 D-Dimer 871.02 ng/mlDDU (0-234) H 10/20/20 22:43 Sodium 134 mmol/L (137-145) L 10/27/20 06:15 Potassium 4.8 mmol/L (3.6-5.0) 10/27/20 06:15 Chloride 100.0 mmol/L (98-107) 10/27/20 06:15 Carbon Dioxide 29 mmol/L (22-30) 10/27/20 06:15 Anion Gap 10 mmol/L 10/27/20 06:15 BUN 14 mg/dL (9-20) 10/27/20 06:15 Creatinine 0.9 mg/dL (0.8-1.3) 10/27/20 06:15 Estimated GFR > 60 ml/min 10/27/20 06:15 BUN/Creatinine Ratio 16 % 10/27/20 06:15 Glucose 88 mg/dL (75-100) 10/27/20 06:15 Calcium 8.9 mg/dL (8.4-10.2) 10/27/20 06:15 Ferritin 204.5 ng/mL (30.0-300.0) 10/20/20 22:43 Total Bilirubin < 0.20 mg/dL (0.1-1.2) 10/24/20 06:36 AST 7 units/L (5-40) 10/24/20 06:36 ALT 5 units/L (7-56) L 10/24/20 06:36 Alkaline Phosphatase 53 units/L (35-129) 10/24/20 06:36 Lactate Dehydrogenase 190 units/L (91-180) H 10/20/20 22:43 Troponin T < 0.010 ng/mL (0.00-0.029) 10/21/20 06:51 C-Reactive Protein 8.10 mg/dL (0.00-1.30) H 10/20/20 22:43 NT-Pro-B Natriuret Pep 324.4 pg/mL (0-450) 10/20/20 20:41 Total Protein 6.6 g/dL (6.3-8.2) 10/24/20 06:36 Albumin 3.0 g/dL (3.9-5) L 10/24/20 06:36 Albumin/Globulin Ratio 0.8 % 10/24/20 06:36 Lipase 16 units/L (13-60) 10/20/20 20:41 Procalcitonin 0.10 ng/mL (<0.15) 10/20/20 22:43 Lymph Enumerat CD4/CD8 0.36 (0.86-5.00) L 10/21/20 09:41 % CD3 Cells 52 % (57-85) L 10/21/20 09:41 Absolute CD3 Count 188 cells/uL (840-3060) L 10/21/20 09:41 % CD4 Cells 13 % (30-61) L 10/21/20 09:41 Absolute CD4 Count 48 cells/uL (490-1740) L 10/21/20 09:41 % CD8 Cells 37 % (12-42) 10/21/20 09:41 Absolute CD8 Count 133 cells/uL (180-1170) L 10/21/20 09:41 % CD19 Cells 26 % (6-29) 10/21/20 09:41 Absolute CD19 Count 97 cells/uL (110-660) L 10/21/20 09:41 Coronavirus (PCR) Positive (Negative) A 10/21/20 Unknown HIV-1 RNA PCR copies/ml 25 Copies/mL H 10/21/20 14:13 HIV-1 RNA (PCR) log 1.39 Log cps/mL H 10/21/20 14:13 Miscellaneous Test Flexitest 1 10/21/20 09:41 Thakur/IV: Voiding Method Toilet Active Medications - Current Medications Current Medications: Generic Name Dose Route Start Last Admin Trade Name Freq PRN Reason Stop Dose Admin Acetaminophen 650 mg 10/20/20 22:35 Acetaminophen 325 Mg Tab PO Q4H PRN Pain MILD(1-3)/Fever >100.5/LIU Ascorbic Acid 1,000 mg 10/22/20 10:00 10/28/20 22:03 Ascorbic Acid 500 Mg Tab PO 1,000 mg BID CEFERINO Administration Cholecalciferol 5,000 unit 10/22/20 10:00 10/28/20 09:40 Cholecalciferol (Vit D3) 5,000 Unit Tab PO 5,000 unit DAILY CEFERINO Administration Dexamethasone 6 mg 10/23/20 10:00 10/28/20 09:40 Dexamethasone 4 Mg Tab PO 10/29/20 12:00 6 mg DAILY CEFERINO Administration Emtricitabine 200 mg 10/21/20 16:00 10/28/20 09:40 Emtricitabine 200 Mg Cap PO 200 mg QDAY CEFERINO Administration Enoxaparin Sodium 40 mg 10/21/20 22:00 10/28/20 22:03 Enoxaparin 40 Mg/0.4 Ml Inj SUB-Q 40 mg QDAY@2200 CEFERINO Administration Protocol Famotidine 20 mg 10/22/20 16:30 10/28/20 17:01 Famotidine 20 Mg Tab PO 20 mg BIDAC CEFERINO Administration Hydrocodone Bit/Homatropine Methylb 10 ml 10/22/20 08:02 10/26/20 23:54 Hydrocodone/Homatropine 5-1.5mg /5 Ml Oral Liqd Unit Dose PO 10 ml Q6H PRN Administration Cough Sodium Chloride 1,000 mls @ 75 mls/hr 10/20/20 22:45 10/29/20 05:50 Nacl 0.9% 1000 Ml IV 75 mls/hr DIRECT CEFERINO Administration Magnesium Hydroxide 30 ml 10/20/20 22:35 Magnesium Hydroxide (Mom) Oral Liqd Udc PO Q4H PRN Constipation Morphine Sulfate 2 mg 10/20/20 22:35 Morphine 2 Mg/1 Ml Inj IV Q4H PRN Pain, Moderate (4-6) Ondansetron HCl 4 mg 10/20/20 22:35 Ondansetron 4 Mg/2 Ml Inj IV Q8H PRN Nausea And Vomiting Sodium Chloride 10 ml 10/21/20 10:00 10/28/20 22:04 Sodium Chloride 0.9% 10 Ml Flush Syringe IV 10 ml BID CEFERINO Administration Sodium Chloride 10 ml 10/20/20 22:35 Sodium Chloride 0.9% 10 Ml Flush Syringe IV PRN PRN LINE FLUSH Tenofovir Disoproxil Fumarate 300 mg 10/21/20 16:00 10/28/20 12:18 Tenofovir 300 Mg Tab PO 300 mg QDAY CEFERINO Administration Nutrition/Malnutrition Assess - Dietary Evaluation Nutrition/Malnutrition Findings: Nutrition Notes Start: 10/26/20 11:33 Freq: Status: Active Protocol: Document 10/26/20 11:33 AB (Rec: 10/26/20 12:02 AB [id number]) Co-Sign 10/26/20 11:33 CW Nutrition Notes Need for Assessment generated from: LOS Initial or Follow up Assessment Current Diagnosis Acute Kidney Injury,Sepsis Other Pertinent Diagnosis COVID (+), pneu, anemia, AIDS Current Diet Regular Labs/Tests Na 135 Pertinent Medications Decadron Height 5 ft 8 in Weight 87.5 kg Usual Body Weight 81.8 kg [place] Body Weight (kg) 70.00 BMI 29.3 Intake Prior to Admission Good Weight change and time frame 7% wt increase in unknown time frame Weight Status Overweight Subjective/Other Information Screen for LOS. Pt reports eating 25-75% of meals d/t not liking the food here. [place] pt stated that he was eating well and he had a good appetite. No appetite changes since admission. Pt reports wt gain in unknown time frame. Per chart, pt has 2+ edema and rash on legs. Percent of energy/protein needs met: 50%/64% Burn Absent Trauma Absent GI Symptoms None Food Allergy No Current % PO Fair (50-74%) Minimum of two criteria No Fluid Accumulation Moderate to Severe (severe) #1 Nutrition Diagnosis Inadequate oral intake Etiology COVID (+) As Evidenced by Signs and Symptoms Pt reports meal intakes of 25- 75%, which is meeting 50%/64% of energy/protein needs Is patient on ventilator? No Is Patient Ambulatory and/or Out of Bed Yes REE-([place]-St. Jeor-ambulatory/OOB) [ 2306.850 NUTR.MSJOOB] Calculation Used for Recommendations [place] Additional Notes Protein needs: 70-88 g (0.8-1 g/kg) Fluid needs: 1 ml/kcal Nutrition Intervention Change Diet Order: Continue current diet order Add Supplement/Snack (indicate name/kcal Ensure Enlive BID /protein ) Provides kCal: 700 Provides Protein (gm) 40 Goal #1 Meet at least 75% of energy and protein needs via PO and ONS Anticipated Discharge Needs: Regular diet Follow-Up By: 10/30/20 Additional Comments F/U for intakes and ONS tolerance
[2020-10-29] MEDS: FAMOTIDINE 20 MG TAB PO SCH ×2 (09:30→17:31)
--- NOTE | 2020-10-29 10:10 | Progress Note ---
Assessment and Plan Cultures: SARS CoV2 PCR: Positive 10/20/2020 blood culture: In process A/P: 35-year-old male with HIV with: #Bilateral pneumonia: COVID-19 positive #Acute hypoxic respiratory failure: On supplemental oxygen #HIV and AIDS: Supposed to be on Biktarvy, follows with me in clinic however last viral load here in August 2020 was 925K, CD4 count was only 27, 4% suggestive of non-compliance with meds. Viral load now 25, indicating improved compliance with medications. #Leukopenia: Could be from HIV or COVID-19. #Bilateral leg rash: Ddx: Kaposi, bacillary angiomatosis, other rash. recommend skin biopsy Recs: -Skin biopsy to be done as an outpatient per Dr. Christie -Completed remdesivir. -Continue Biktarvy, therapeutic interchange for formulary to tenofovir, emtricitabine and dolutegravir. Resume Biktarvy on discharge. -OK for DC from ID perspective. -Follow-up with Dr. Jose Singleton MD [facility] ([facility]) Office [phone] Subjective Date of service: 10/29/20 Principal diagnosis: Bilateral pneumonia Interval history: Patient is now on 2 L nasal cannula, O2 sats>95%, no fever. Objective - Exam Narrative Exam: Physical exam deferred to minimize COVID-19 transmission during pandemic. ER and internal medicine physical examination notes reviewed. - Constitutional Vitals: Vital Signs Temp Pulse Resp BP Pulse Ox 97.8 F 62 18 106/63 95 10/29/20 05:51 10/29/20 05:51 10/29/20 05:51 10/29/20 05:51 10/29/20 08:40 Temperature -Last 24 Hours Temperature 97.8 F Temperature 98.0 F Temperature 97.9 F Temperature 98.1 F - Labs CBC & Chem 7: 10/27/20 06:15 10/27/20 06:15
[2020-10-29] MEDS: DOLUTEGRAVIR 50 MG TAB PO SCH (10:42)
[2020-10-29] MEDS: EMTRICITABINE 200 MG CAP PO SCH (10:42)
[2020-10-29] MEDS: CHOLECALCIFEROL (VIT D3) 5,000 UNIT TAB PO SCH (10:42)
[2020-10-29] MEDS: DEXAMETHASONE 4 MG TAB PO SCH (10:43)
[2020-10-29] MEDS: TENOFOVIR 300 MG TAB PO SCH (10:44)
[2020-10-29] MEDS: ASCORBIC ACID 500 MG TAB PO SCH ×2 (10:44→21:49)
[2020-10-29] MEDS: ENOXAPARIN 40 MG/0.4 ML INJ SUB-Q SCH (21:48)
[2020-10-29] MEDS: HYDROcodone/HOMATROPINE 5-1.5MG /5 ML ORAL LIQD UNIT DOSE PO PRN (21:48)
[2020-10-30 05:09] VITALS: BP 97/65
--- NOTE | 2020-10-30 08:57 | Discharge Summary ---
Providers - Providers Date of Admission: 10/20/20 22:10 Date of discharge: 10/30/20 Attending physician: JACQUELINE JURADO MD 10/20/20 22:35 Consult to Physician [CONS] Routine Comment: Consulting Provider: ESTHELA LAGOS Physician Instructions: Reason For Exam: Pneumonia r/o COVID-19 10/21/20 09:49 Consult to Wound/ET Nurse [CONS] Routine Reason For Exam: wound eval 10/26/20 13:15 Consult to Physician [CONS] Routine Comment: Consulting Provider: CABRERA STOREY Physician Instructions: Reason For Exam: skin biopsy in AIDS patient Primary care physician: HYDRAULIC SPINNER Hospitalization Reason for admission: Acute hypoxic respiratory failure, COVID-19 pneumonia, HIV Condition: Stable Hospital course: History of present illness: 35-year-old male with known history of HIV presenting to the emergency room today complaining of shortness of breath and cough which has been ongoing for the past few days. 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 He denies any fever or chills, no chest pain, no nausea vomiting and no abdominal pain. He denies any sick contacts and no recent travel, denies any contact with anyone with COVID-19. Patient has been compliant with his HIV medication. Last CD4 counts is unknown but states that it was within normal limits when it was checked in August 2020. He follows up with his infectious disease physician. Upon arrival in the emergency room, he was slightly hypoxic. Work-up in the emergency room today shows bilateral infiltrate on chest x-ray. Patient has been admitted with pneumonia to rule out COVID-19. Hospital course Bilateral pneumonia: COVID-19 positive Acute hypoxic respiratory failure: On supplemental oxygen HIV and AIDS:ID following Kaposi dermatosis. Skin biopsy per surgery Leukopenia: Etiology from COVID-19. 10/23. Continue remdesivir. Continue empiric antibiotics of ceftriaxone and azithromycin per ID recommendations. Empiric IV Bactrim per ID. Continue Biktarvy, therapeutic interchange for formulary to tenofovir, emtricitabine and dolutegravir 10/24. Continue remdesivir. Ceftriaxone and azithromycin was stopped given normal procalcitonin. Doxycycline added per ID recommendations. Empiric IV Bactrim per ID. Continue Biktarvy, therapeutic interchange for formulary to tenofovir, emtricitabine and dolutegravir. 10/25. Remdesivir completion today. Continue empiric IV Bactrim per ID recommendations. Follow-up HIV RNA PCR and CD4 count. Continue Biktarvy, therapeutic interchange for formulary to tenofovir, emtricitabine and dolutegravir. Pt currently with 7L O2. Wean as tolerated 10/26. Patient still requiring 4 L of oxygen. Check pulse oximetry today. Continue HIV medications per ID. 10/27. Patient still requiring moderate amounts of oxygen with 4 L only satting 90%. S/p skin biopsy per surgery. ID following. 10/28. Patient's oxygenation improved with 4 L satting at 94%. Patient still needs weaning with oxygen. ID following. Follow-up with general surgery as an outpatient for skin biopsy. 10/29. Bactrim and doxycycline have been discontinued and remdesivir completed. Patient O2 requirements are decreased. Perform walk test to determine home O2 needs. Anticipate discharge later today or in a.m. 10/30/2020; patient was seen and evaluated this morning, patient did not have any complaints. Patient was off oxygen. Home O2 evaluation was done yesterday and patient does not need oxygen. Patient finished his treatment for Covid and stable for discharge. Patient's questions and concerns were addressed at the bedside. Patient advised to have follow-up with his infectious disease specialist for his HIV. Disposition: DC-30 STILL A PATIENT Final Discharge Diagnosis (Prints w/discharge instructions): Acute hypoxic respiratory failure. Covid pneumonia. HIV Time spent for discharge: 35 minutes - Discharge Diagnoses (1) Bilateral pneumonia Status: Acute (2) Kaposi dermatosis Status: Acute (3) Shortness of breath Status: Acute (4) Acute kidney injury Status: Acute (5) Acute respiratory failure with hypoxia Status: Acute (6) Anemia Status: Acute Qualifiers: Anemia type: unspecified type Qualified Code(s): D64.9 - Anemia, unspecified (7) COVID-19 virus infection Status: Acute (8) HIV antibody positive Status: Acute Core Measure Documentation - Palliative Care Palliative Care/ Comfort Measures: Not Applicable - Core Measures Any of the following diagnoses?: none Exam - Physical Exam Narrative exam: Not in cardiopulmonary distress. The patient appeared well nourished and normally developed. Vital signs as documented. Head exam is unremarkable. No scleral icterus . Neck is without jugular venous distension, thyromegaly, or carotid bruits. Lungs are clear to auscultation. Cardiac exam reveals regular rate and Rhythm. Abdominal exam reveals normal bowel sounds, nontender, no organomegaly. Extremities are nonedematous and both femoral and pedal pulses are normal. WINDOWS ARCHITECT: Alert and oriented 3. No focal weakness. - Constitutional Vitals: Temp Pulse Resp BP Pulse Ox 97.2 F L 59 L 20 97/65 98 10/30/20 04:45 10/30/20 04:45 10/30/20 04:45 10/30/20 04:45 10/30/20 04:45 Plan Activity: no restrictions Weight Bearing Status: Full Weight Bearing Diet: regular Follow up with: PRIMARY CAREMD [Primary Care Provider] - 3-5 Days
[2020-10-30] MEDS: DOLUTEGRAVIR 50 MG TAB PO SCH (09:48)
[2020-10-30] MEDS: CHOLECALCIFEROL (VIT D3) 5,000 UNIT TAB PO SCH (09:48)
--- NOTE | 2020-10-30 09:50 | Progress Note ---
Assessment and Plan Cultures: SARS CoV2 PCR: Positive 10/20/2020 blood culture: In process A/P: 35-year-old male with HIV with: #Bilateral pneumonia: COVID-19 positive #Acute hypoxic respiratory failure: On supplemental oxygen #HIV and AIDS: Supposed to be on Biktarvy, follows with me in clinic however last viral load here in August 2020 was 925K, CD4 count was only 27, 4% suggestive of non-compliance with meds. Viral load now 25, indicating improved compliance with medications. #Leukopenia: Resolved. Could be from HIV or COVID-19. #Bilateral leg rash: Ddx: Kaposi, bacillary angiomatosis, other rash. recommend skin biopsy Recs: -Skin biopsy to be done as an outpatient per Dr. Christie -Completed remdesivir. -Continue Biktarvy, therapeutic interchange for formulary to tenofovir, emtricitabine and dolutegravir. Resume Biktarvy on discharge. -Follow-up with Dr. Jose Paz to discharge from ID standpoint will sign off Dania Singleton MD [facility] ([facility]) Office [phone] Subjective Date of service: 10/30/20 Principal diagnosis: Bilateral pneumonia Interval history: Patient is feeling better, now on room air, no complaints.. Objective - Exam Narrative Exam: General appearance: Alert in NAD pleasant Eyes: anicteric sclerae, moist conjunctivae; no lid-lag; PERRLA HENT: Normocephalic, Atraumatic; normal external ears, nares open, oropharynx cl ear Neck: supple, tracheal midline, no JVD Lungs: CTA, with normal respiratory effort and no intercostal retractions CV: RRR no murmur Abdomen: Soft, non-tender; no masses or hepatosplenomegaly Extremities: no edema, no cyanosis Skin: No rash. Psych: no agitated Neuro: alert and oriented x 3. Moving all extermities - Constitutional Vitals: Vital Signs Temp Pulse Resp BP Pulse Ox 97.2 F L 59 L 20 97/65 95 10/30/20 04:45 10/30/20 04:45 10/30/20 04:45 10/30/20 04:45 10/30/20 09:44 Temperature -Last 24 Hours Temperature 97.2 F Temperature 98.2 F Temperature 98.0 F Temperature 98.0 F - Labs CBC & Chem 7: 10/27/20 06:15 10/27/20 06:15
[2020-10-30] MEDS: FAMOTIDINE 20 MG TAB PO SCH (09:52)
[2020-10-30] MEDS: TENOFOVIR 300 MG TAB PO SCH (09:52)
[2020-10-30] MEDS: EMTRICITABINE 200 MG CAP PO SCH (09:53)
[2020-10-30] MEDS: ASCORBIC ACID 500 MG TAB PO SCH (09:53)
== END 2020-10-30 11:55 | disposition home or self-care (01) | DRG 974 ==
LOC: ED 20:19 → 3A 22:10
PROVIDERS: ADMIT Internal Medicine Geriatric Medicine; ATTEND Internal Medicine
PROC: XW033E5 Introduction of Remdesivir Anti-infective into Peripheral Vein, Percutaneous Approach, New Technology Group 5 (ICD-10-PCS; principal; 2020-10-21)
DX: U07.1 COVID-19 (principal); J96.01 Acute respiratory failure with hypoxia; B20 Human immunodeficiency virus [HIV] disease; J18.9 Pneumonia, unspecified organism; L98.8 Other specified disorders of the skin and subcutaneous tissue; D72.819 Decreased white blood cell count, unspecified; D64.9 Anemia, unspecified; Z79.899 Other long term (current) drug therapy; Z79.891 Long term (current) use of opiate analgesic; Z79.01 Long term (current) use of anticoagulants
CPT/HCPCS: 36415; 71046; 80048; 80053; 82024; 82728; 82947; 83615; 83690; 83880; 84145; 84484; 85025; 85379; 85610; 86140; 87040; 87116; 87536; 93005; 94760; 96365; 96375; 96376; G0378; J0456; J0696; J1100; J1650; J7030; J7060; J8540; U0003

== ENCOUNTER 2020-11-26 04:51 | Emergency (ER) | payer OTHER ==
[2020-11-26 05:31] VITALS: BP 114/58
--- NOTE | 2020-11-26 06:00 | XRay Report ---
CHEST 2 VIEWS INDICATION: SOB. COMPARISON: 10/20/2020 FINDINGS: SUPPORT DEVICES: None. HEART: Within normal limits. LUNGS/PLEURA: Unchanged moderate patchy multifocal airspace disease overall greatest in the right low er lobe. No pneumothorax. ADDITIONAL FINDINGS: None. IMPRESSION: 1. Pulmonary findings as above. Signer Name: Tony Gordon MD Signed: 11/26/2020 5:55 AM Workstation Name: [id number]
--- NOTE | 2020-11-26 07:57 | Emergency Department Report ---
ED Shortness of Breath HPI - General Chief Complaint: Dyspnea/Respdistress Stated Complaint: CONGESTION/COUGHING/SOB Time Seen by Provider: 11/26/20 07:55 Source: patient Mode of arrival: Ambulatory Limitations: No Limitations - History of Present Illness Initial Comments: 35-year-old -[place] male with a history of HIV recent Covid and pneumonia presents to the emergency room complaining of cough and chest congestion since he was diagnosed with Covid back in October. Patient states he has been taking [id number] Mucinex. He denies any shortness of breath, chest pain, fever chills, loss of taste or smell. Patient has not followed up with any of his providers. Patient states he is compliant with his HIV medications. MD Complaint: cough Onset/Timin -: month(s) Pain Scale: 3 Improves With: nothing Worsens With: lying flat (on back and right side) Known History Of: recurrent pnemonia, HIV Associated Symptoms: cough, sputum production Treatments Prior to Arrival: none - Related Data Home Oxygen Therapy: No Previous Rx's Medication Instructions Recorded Last Taken Type Ipratropium/Albuterol Sulfate 1 ampul IH Q6HR #120 ampul.neb 02/24/20 Unknown Rx [DUONEB *Not for PRN Use*] predniSONE [Deltasone] 20 mg PO QDAY #5 tablet 02/25/20 Unknown Rx Famotidine [Pepcid] 40 mg PO QHS #5 tablet 02/26/20 Unknown Rx diphenhydrAMINE [Benadryl CAP] 50 mg PO Q8HR PRN #14 capsule 02/26/20 Unknown Rx Dexamethasone [Taperdex] 1.5 mg PO DAILY 7 Days #1 tab.ds.pk 03/14/20 Unknown Rx Promethazine HCl [Promethazine TAB] 12.5 mg PO [id number] PRN #12 tab 05/09/20 Unknown Rx Atovaquone [Mepron] 750 mg PO BID 25 Days ml 08/19/20 Unknown Rx Cefdinir 300 mg PO BID #10 capsule 08/19/20 Unknown Rx Dolutegravir [Tivicay] 50 mg PO QDAY #30 tablet 08/19/20 Unknown Rx Emtricitabine [Emtriva] 200 mg PO QDAY #30 capsule 08/19/20 Unknown Rx Famotidine [Pepcid] 20 mg PO BID #60 tablet 08/19/20 Unknown Rx Tenofovir [Viread] 300 mg PO QDAY #30 tablet 08/19/20 Unknown Rx Albuterol Sulfate [Proventil Hfa] 6.7 gm IH QID #1 hfa.aer.ad 11/26/20 Unknown Rx Benzonatate [Tessalon Perles] 100 mg PO Q8HR #20 capsule 11/26/20 Unknown Rx Sulfamethoxazole/Trimethoprim 1 each PO BID 10 Days #20 tablet 11/26/20 Unknown Rx [Bactrim DS TAB] Allergies Allergy/AdvReac Type Severity Reaction Status Date / Time No Known Allergies Allergy Verified 12/02/19 14:17 ED Review of Systems ROS: Stated complaint: CONGESTION/COUGHING/SOB Other details as noted in HPI Comment: All other systems reviewed and negative ED Past Medical Hx - Past Medical History Hx Hypertension: No Hx Heart Attack/AMI: No Hx Congestive Heart Failure: No Hx Diabetes: No Hx Deep Vein Thrombosis: No Hx Pulmonary Embolism: No Hx Liver Disease: No Hx Renal Disease: No Hx Seizures: No Hx Psychiatric Treatment: No Hx Asthma: No Hx COPD: No Hx Tuberculosis: No Hx Dementia: No Hx HIV: Yes (ON ANTI-VIRAL'S) Additional medical history: PNA in December 2019, PNA in February 2020, Covid-26 November 2020 - Surgical History Hx Coronary Stent: No Hx Pacemaker: No Hx Internal Defibrillator: No - Social History Smoking Status: Never Smoker - Medications Home Medications: Home Medications Medication Instructions Recorded Confirmed Last Taken Type Ipratropium/Albuterol Sulfate 1 ampul IH Q6HR #120 ampul.neb 02/24/20 08/17/20 Unknown Rx [DUONEB *Not for PRN Use*] predniSONE [Deltasone] 20 mg PO QDAY #5 tablet 02/25/20 08/17/20 Unknown Rx Famotidine [Pepcid] 40 mg PO QHS #5 tablet 02/26/20 08/17/20 Unknown Rx diphenhydrAMINE [Benadryl CAP] 50 mg PO Q8HR PRN #14 capsule 02/26/20 08/17/20 Unknown Rx Dexamethasone [Taperdex] 1.5 mg PO DAILY 7 Days #1 tab.ds.pk 03/14/20 08/17/20 Unknown Rx Promethazine HCl [Promethazine TAB] 12.5 mg PO [id number] PRN #12 tab 05/09/20 08/17/20 Unknown Rx Atovaquone [Mepron] 750 mg PO BID 25 Days ml 08/19/20 Unknown Rx Cefdinir 300 mg PO BID #10 capsule 08/19/20 Unknown Rx Dolutegravir [Tivicay] 50 mg PO QDAY #30 tablet 08/19/20 Unknown Rx Emtricitabine [Emtriva] 200 mg PO QDAY #30 capsule 08/19/20 Unknown Rx Famotidine [Pepcid] 20 mg PO BID #60 tablet 08/19/20 Unknown Rx Tenofovir [Viread] 300 mg PO QDAY #30 tablet 08/19/20 Unknown Rx Albuterol Sulfate [Proventil Hfa] 6.7 gm IH QID #1 hfa.aer.ad 11/26/20 Unknown Rx Benzonatate [Tessalon Perles] 100 mg PO Q8HR #20 capsule 11/26/20 Unknown Rx Sulfamethoxazole/Trimethoprim 1 each PO BID 10 Days #20 tablet 11/26/20 Unknown Rx [Bactrim DS TAB] ED Physical Exam - General Limitations: No Limitations General appearance: alert, in no apparent distress - Head Head exam: Present: atraumatic, normocephalic - Eye Eye exam: Present: normal appearance - ENT ENT exam: Present: normal exam - Neck Neck exam: Present: normal inspection, full ROM - Respiratory Respiratory exam: Present: other (Right lower lung and middle lung crackles). Absent: respiratory distress, chest wall tenderness, accessory muscle use - Cardiovascular Cardiovascular Exam: Present: regular rate - GI/Abdominal GI/Abdominal exam: Present: soft, normal bowel sounds. Absent: distended, tenderness - Extremities Exam Extremities exam: Present: normal inspection, full ROM - Back Exam Back exam: Present: normal inspection, full ROM - Neurological Exam Neurological exam: Present: alert, oriented X3, normal gait - Psychiatric Psychiatric exam: Present: normal affect, normal mood - Skin Skin exam: Present: warm, dry, intact, normal color. Absent: rash ED Course Vital Signs 11/26/20 05:30 Temperature 98.3 F Pulse Rate 90 Respiratory 18 Rate Blood Pressure 114/58 O2 Sat by Pulse 97 Oximetry ED Medical Decision Making - Radiology Data Radiology results: report reviewed [facility] [address] [place] [address] XRay Report Signed Patient: PENNY FERNANDO III MR #: [id number] : 1985 Acct:[id number] Age/Sex: 35 / M ADM Date: 11/26/20 Loc: ED Attending Dr: Ordering Physician: SHREYA OSPINA MD Date of Service: 11/26/20 Procedure(s): XR chest routine 2V Accession Number(s): [id number] cc: SHREYA OSPINA MD Fluoro Time In Minutes: CHEST 2 VIEWS INDICATION: SOB. COMPARISON: 10/20/2020 FINDINGS: SUPPORT DEVICES: None. HEART: Within normal limits. LUNGS/PLEURA: Unchanged moderate patchy multifocal airspace disease overall greatest in the right lower lobe. No pneumothorax. ADDITIONAL FINDINGS: None. IMPRESSION: 1. Pulmonary findings as above. Signer Name: Toyn Gordon MD Signed: 11/26/2020 5:55 AM Workstation Name: [id number] Transcribed By: JW Dictated By: Tony Gordon MD Electronically Authenticated By: Tony Gordon MD Signed Date/Time: 11/26/20554 DD/ 4 TD/TT: - Medical Decision Making 35-year-old -[place] male with a history of HIV recent Covid and pneumonia presents to the emergency room complaining of cough and chest congestion since he was diagnosed with Covid back in October. Patient states he has been taking [id number]-[id number] Mucinex. He denies any shortness of breath, chest pain, fever chills, loss of taste or smell. Patient has not followed up with any of his providers. Patient states he is compliant with his HIV medications. Chest x-ray has not improved since his last chest x-ray in October. Patient will be discharged on Bactrim, Tessalon Perles, albuterol inhaler and recommend follow-up with handstitching machine collar feller and a internal medicine provider. I have listed the referrals in his discharge summary. Patient's vital signs are stable he is in no acute distress and nontoxic in appearance. Patient is able to follow-up outpatient. Critical care attestation.: If time is entered above; I have spent that time in minutes in the direct care of this critically ill patient, excluding procedure time. ED Disposition Clinical Impression: Right lower lobe pneumonia, HIV (human immunodeficiency virus infection), Cough Disposition: DC-01 TO HOME OR SELFCARE Is pt being admited?: No Does the pt Need Aspirin: No Condition: Stable Instructions: Bacterial Pneumonia (ED), Cough, Adult, [id number], Community- Acquired Pneumonia, Adult Additional Instructions: Please complete antibiotics as prescribed. Cough medication as needed. Increase your water intake. Follow-up with a primary care provider as well as a handstitching machine collar feller. Dr. Wright is a handstitching machine collar feller Dr. Johnson is a internal medicine provider. Dr. Dawn is an internal medicine provider Prescriptions: Sulfamethoxazole/Trimethoprim [Bactrim DS TAB] 1 each PO BID 10 Days #20 tablet Albuterol Sulfate [Proventil Hfa] 6.7 gm IH QID #1 hfa.aer.ad Benzonatate [Tessalon Perles] 100 mg PO Q8HR #20 capsule Referrals: LOREE JOHNSON MD [Staff Physician] - 3-5 Days CARY DAWN MD [Staff Physician] - 3-5 Days ANABELA EDUARDO MD [Staff Physician] - 3-5 Days Forms: Work/School Release Form(ED)
== END 2020-11-26 08:17 | disposition home or self-care (01) ==
LOC: ED 04:51
DX: J18.1 Lobar pneumonia, unspecified organism (principal); B20 Human immunodeficiency virus [HIV] disease; R05 Cough; Z79.899 Other long term (current) drug therapy
CPT/HCPCS: 71046; 99283

== ENCOUNTER 2020-12-06 00:26 | Inpatient (IN) | payer OTHER ==
[2020-12-06] MEDS ORDERED: IBUPROFEN 600 MG TAB PO ONE (00:47)
[2020-12-06] MEDS ORDERED: SODIUM CHLORIDE 0.9% 1000 ML 1,000 ML IV ONE (00:47)
--- NOTE | 2020-12-06 00:49 | Event Note ---
ED Screening Note Date of service: 12/06/20 Time: 00:48 ED Screening Note: 35-year-old -[place] male has been seen by this provider on November 26, 2020. Patient presents to the emergency room today for shortness of breath and cough. Patient has completed outpatient antibiotics consistent with Bactrim benzonatate. Patient states he is compliant on medications. This initial assessment/diagnostic orders/clinical plan/treatment(s) is/are subject to change based on patients health status, clinical progression and re- assessment by fellow clinical providers in the ED. Further treatment and workup at subsequent clinical providers discretion. Patient/guardian urged not to elope from the ED as their condition may be serious if not clinically assessed and managed. Initial orders include:
[2020-12-06] MEDS ORDERED: dexAMETHasone 4 MG/ML VIAL IV ONE (00:58)
--- NOTE | 2020-12-06 01:02 | Emergency Department Report ---
ED Shortness of Breath HPI - General Chief Complaint: Dyspnea/Respdistress Stated Complaint: SOB,CONGESTION,CHEST PAIN Time Seen by Provider: 12/06/20 00:52 Source: patient Mode of arrival: Ambulatory Limitations: No Limitations - History of Present Illness Initial Comments: Patient is 35 years old male with history of HIV. Patient presented to the ER complaining of shortness of breath and difficulty in breathing. Patient stated that his symptoms has been going on for a while but for the last 2 to 3 days became worse. Patient stated that he tested positive for COVID-19 approximately 1 month ago but he tested -2 weeks later. Patient stated that he is having difficulty walking even for short distance without stopping to catch his breath. Patient denied any fever or chills. No nausea or vomiting. Patient found to have an oxygen saturation of 89% on room air. MD Complaint: shortness of breath, cough -: days(s) Severity: moderate Improves With: oxygen Context: recent URI - Related Data Previous Rx's Medication Instructions Recorded Last Taken Type Ipratropium/Albuterol Sulfate 1 ampul IH Q6HR #120 ampul.neb 02/24/20 Unknown Rx [DUONEB *Not for PRN Use*] predniSONE [Deltasone] 20 mg PO QDAY #5 tablet 02/25/20 Unknown Rx Famotidine [Pepcid] 40 mg PO QHS #5 tablet 02/26/20 Unknown Rx diphenhydrAMINE [Benadryl CAP] 50 mg PO Q8HR PRN #14 capsule 02/26/20 Unknown Rx Dexamethasone [Taperdex] 1.5 mg PO DAILY 7 Days #1 tab.ds.pk 03/14/20 Unknown Rx Promethazine HCl [Promethazine TAB] 12.5 mg PO [id number] PRN #12 tab 05/09/20 Unknown Rx Atovaquone [Mepron] 750 mg PO BID 25 Days ml 08/19/20 Unknown Rx Cefdinir 300 mg PO BID #10 capsule 08/19/20 Unknown Rx Dolutegravir [Tivicay] 50 mg PO QDAY #30 tablet 08/19/20 Unknown Rx Emtricitabine [Emtriva] 200 mg PO QDAY #30 capsule 08/19/20 Unknown Rx Famotidine [Pepcid] 20 mg PO BID #60 tablet 08/19/20 Unknown Rx Tenofovir [Viread] 300 mg PO QDAY #30 tablet 08/19/20 Unknown Rx Albuterol Sulfate [Proventil Hfa] 6.7 gm IH QID #1 hfa.aer.ad 11/26/20 Unknown Rx Benzonatate [Tessalon Perles] 100 mg PO Q8HR #20 capsule 11/26/20 Unknown Rx Sulfamethoxazole/Trimethoprim 1 each PO BID 10 Days #20 tablet 11/26/20 Unknown Rx [Bactrim DS TAB] Allergies Allergy/AdvReac Type Severity Reaction Status Date / Time No Known Allergies Allergy Verified 12/02/19 14:17 ED Review of Systems ROS: Stated complaint: SOB,CONGESTION,CHEST PAIN Other details as noted in HPI Comment: All other systems reviewed and negative Constitutional: denies: chills, fever Respiratory: cough, orthopnea, shortness of breath, SOB with exertion, SOB at rest. denies: wheezing Cardiovascular: denies: chest pain, palpitations Gastrointestinal: denies: abdominal pain, nausea, vomiting Musculoskeletal: denies: back pain Neurological: denies: headache, weakness ED Past Medical Hx - Past Medical History Previous Medical History?: Yes Hx Hypertension: No Hx Heart Attack/AMI: No Hx Congestive Heart Failure: No Hx Diabetes: No Hx Deep Vein Thrombosis: No Hx Pulmonary Embolism: No Hx Liver Disease: No Hx Renal Disease: No Hx Seizures: No Hx Psychiatric Treatment: No Hx Asthma: No Hx COPD: No Hx Tuberculosis: No Hx Dementia: No Hx HIV: Yes (ON ANTI-VIRAL'S) Additional medical history: PNA in December 2019, PNA in February 2020, Covid-26 November 2020 - Surgical History Past Surgical History?: No Hx Coronary Stent: No Hx Pacemaker: No Hx Internal Defibrillator: No - Social History Smoking Status: Never Smoker Substance Use Type: None - Medications Home Medications: Home Medications Medication Instructions Recorded Confirmed Last Taken Type Ipratropium/Albuterol Sulfate 1 ampul IH Q6HR #120 ampul.neb 02/24/20 08/17/20 Unknown Rx [DUONEB *Not for PRN Use*] predniSONE [Deltasone] 20 mg PO QDAY #5 tablet 02/25/20 08/17/20 Unknown Rx Famotidine [Pepcid] 40 mg PO QHS #5 tablet 02/26/20 08/17/20 Unknown Rx diphenhydrAMINE [Benadryl CAP] 50 mg PO Q8HR PRN #14 capsule 02/26/20 08/17/20 Unknown Rx Dexamethasone [Taperdex] 1.5 mg PO DAILY 7 Days #1 tab.ds.pk 03/14/20 08/17/20 Unknown Rx Promethazine HCl [Promethazine TAB] 12.5 mg PO [id number] PRN #12 tab 05/09/20 08/17/20 Unknown Rx Atovaquone [Mepron] 750 mg PO BID 25 Days ml 08/19/20 Unknown Rx Cefdinir 300 mg PO BID #10 capsule 08/19/20 Unknown Rx Dolutegravir [Tivicay] 50 mg PO QDAY #30 tablet 08/19/20 Unknown Rx Emtricitabine [Emtriva] 200 mg PO QDAY #30 capsule 08/19/20 Unknown Rx Famotidine [Pepcid] 20 mg PO BID #60 tablet 08/19/20 Unknown Rx Tenofovir [Viread] 300 mg PO QDAY #30 tablet 08/19/20 Unknown Rx Albuterol Sulfate [Proventil Hfa] 6.7 gm IH QID #1 hfa.aer.ad 11/26/20 Unknown Rx Benzonatate [Tessalon Perles] 100 mg PO Q8HR #20 capsule 11/26/20 Unknown Rx Sulfamethoxazole/Trimethoprim 1 each PO BID 10 Days #20 tablet 11/26/20 Unknown Rx [Bactrim DS TAB] ED Physical Exam - General Limitations: No Limitations General appearance: alert, in distress - Head Head exam: Present: atraumatic, normocephalic, normal inspection - Eye Eye exam: Present: normal appearance - ENT ENT exam: Present: mucous membranes dry - Neck Neck exam: Present: normal inspection, full ROM. Absent: tenderness, meni ngismus - Respiratory Respiratory exam: Present: respiratory distress, rales, decreased breath sounds. Absent: wheezes, rhonchi, accessory muscle use, prolonged expiratory - Cardiovascular Cardiovascular Exam: Present: regular rate, normal rhythm, normal heart sounds - GI/Abdominal GI/Abdominal exam: Present: soft, normal bowel sounds. Absent: distended, tenderness, guarding, rebound, rigid, organomegaly, mass, bruit, pulsatile mass, hernia - Extremities Exam Extremities exam: Present: normal inspection, full ROM, normal capillary refill. Absent: tenderness, pedal edema, joint swelling, calf tenderness - Back Exam Back exam: Present: normal inspection, full ROM. Absent: CVA tenderness (R), CV A tenderness (L) - Neurological Exam Neurological exam: Present: alert, oriented X3, CN II-XII intact - Psychiatric Psychiatric exam: Present: normal mood - Skin Skin exam: Present: warm, intact, normal color ED Course Vital Signs 12/06/20 12/06/20 12/06/20 00:35 01:13 01:15 Temperature 98.5 F Pulse Rate 100 H 96 H Respiratory 18 19 27 H Rate Blood Pressure 111/65 Blood Pressure [Right] O2 Sat by Pulse 89 92 Oximetry 12/06/20 12/06/20 12/06/20 01:18 01:30 01:46 Temperature 99 F Pulse Rate 104 H 96 H 91 H Respiratory 20 28 H 27 H Rate Blood Pressure 115/65 115/65 Blood Pressure 112/70 [Right] O2 Sat by Pulse 90 98 95 Oximetry 12/06/20 02:00 Temperature Pulse Rate 97 H Respiratory 19 Rate Blood Pressure 113/75 Blood Pressure [Right] O2 Sat by Pulse 95 Oximetry ED Medical Decision Making - Lab Data Result diagrams: 12/06/20 01:50 12/06/20 01:50 - EKG Data -: EKG Interpreted by Al EKG shows normal: sinus rhythm Rate: normal - EKG Data Interpretation: no acute changes - Radiology Data Radiology results: report reviewed - Medical Decision Making Patient is 35 years old male with history of HIV. Patient presented to the ER complaining of shortness of breath and difficulty in breathing. Patient stated that his symptoms has been going on for a while but for the last 2 to 3 days became worse. Patient stated that he tested positive for COVID-19 approximately 1 month ago but he tested -2 weeks later. Patient stated that he is having difficulty walking even for short distance without stopping to catch his breath. Patient denied any fever or chills. No nausea or vomiting. Patient found to have an oxygen saturation of 89% on room air. Oxygen improved to 96% on 4 L. Chest x-ray showed bilateral infiltrate more on the right side. Patient received Rocephin, Zithromax, Decadron and normal saline. COVID-19 test has been ordered. I discussed the patient with Dr. Roque, he agreed to admit the patient to medical service for further management. Critical Care Time: Yes Critical care time in (mins) excluding proc time.: 30 Critical care attestation.: If time is entered above; I have spent that time in minutes in the direct care of this critically ill patient, excluding procedure time. ED Disposition Clinical Impression: Acute respiratory failure, Bilateral pneumonia, Suspected COVID-19 virus infection Disposition: OP ADMIT IP TO THIS HOSP Is pt being admited?: Yes Condition: Stable Instructions: Bacterial Pneumonia (ED) Referrals: PRIMARY CARE, [Primary Care Provider] - 3-5 Days
--- NOTE | 2020-12-06 01:12 | XRay Report ---
CHEST 2 VIEWS INDICATION / CLINICAL INFORMATION: Difficulty breathing. COMPARISON: 11/26/20. FINDINGS: SUPPORT DEVICES: None. HEART / MEDIASTINUM: The heart size is normal. LUNGS / PLEURA: There is moderately severe parenchymal disease in the right mid to lower lung, simila r to the prior exam. There is mild patchy interstitial disease throughout the left lung. Mild patchy parenchymal opacity in the left upper lobe has cleared. No significant pleural effusion. No pneumotho rax. ADDITIONAL FINDINGS: No significant additional findings. IMPRESSION: Bilateral parenchymal disease, much greater on the right than the left, is again identifi ed. Mild disease in the left upper lobe has improved. Signer Name: Benton Antoine MD Signed: 12/06/2020 1:07 AM Workstation Name: [id number]
[2020-12-06] MEDS ORDERED: cefTRIAXone/NS 1 GM/50 ML 1 GM/50 ML BAG IV ONE (01:48)
[2020-12-06] MEDS ORDERED: AZITHROMYCIN/NS 500 MG/250 ML 500 MG/250 ML BAG IV ONE (01:48)
[2020-12-06 02:12] LABS: Basophils % (Auto) 0.3 % (0.0-1.8); Eosinophils # (Auto) 0.3 K/mm3 (0.0-0.4); Eosinophils % (Auto) 7.1 % (0.0-4.3); Hematocrit 34.2 % (35.5-45.6); Hemoglobin 10.9 gm/dl (11.8-15.2); Lymphocytes % (Auto) 21.9 % (13.4-35.0); Mean Corpuscular HGB Conc 32 % (32-34); Mean Corpuscular Volume 78 fl (84-94); Monocytes # (Auto) 0.4 K/mm3 (0.0-0.8); Monocytes % (Auto) 9.7 % (0.0-7.3); Platelet Count 494 K/mm3 (140-440); Red Blood Count 4.37 M/mm3 (3.65-5.03)
[2020-12-06 02:40] LABS: Alanine Aminotransferase 5 units/L (7-56); Albumin 2.8 g/dL (3.9-5); BUN/Creatinine Ratio 9; Blood Urea Nitrogen 8 mg/dL (9-20); Calcium 7.7 mg/dL (8.4-10.2); Hemolysis Index 0
[2020-12-06 02:45] LABS: INR 1.16 (0.87-1.13)
[2020-12-06 02:47] LABS: Partial Thromboplastin Time 36.5 Sec. (24.2-36.6)
[2020-12-06] MEDS ORDERED: ACETAMINOPHEN 325 MG TAB PO PRN (03:46)
[2020-12-06] MEDS ORDERED: ONDANSETRON 4 MG/2 ML INJ IV PRN (03:46)
[2020-12-06] MEDS ORDERED: MORPHINE 2 MG/1 ML INJ IV PRN (03:46)
[2020-12-06 04:06] LABS: C-Reactive Protein 3.9 mg/dL (0.00-1.30)
--- NOTE | 2020-12-06 04:09 | History and Physical Report ---
History of Present Illness Date of examination: 12/06/20 Date of admission: 12/06/2020 Chief complaint: Shortness of breath Cough History of present illness: 35-year-old male with known history of HIV with unknown CD4 count presenting to the emergency room today complaining of shortness of breath and difficulty breathing. Symptoms were said to have been ongoing for the past 2 to 3 days. Shortness of breath is worse on exertion. He denies any fever or chills, no chest pain, no nausea vomiting, no abdominal pain, no diarrhea, no headache or dizziness, no diaphoresis. Patient states that he tested positive for COVID-19 about a month ago but later tested negative about 2 weeks later. Upon arrival in the emergency room patient had an oxygen saturation of about 89% on room air. Work-up in the emergency room today chest x-ray reveals: Bilateral parenchymal disease,right greater than left. Mild disease in the left upper lobe has improved. She has been admitted with bilateral pneumonia with hypoxia. Will also rule out COVID-19. Past History Past Medical History: other (HIV positive-on antiretroviral.,PNA in December 2019, PNA in February 2020, Covid-26 November 2020) Past Surgical History: No surgical history Social history: no significant social history Family history: no significant family history Medications and Allergies Allergies Allergy/AdvReac Type Severity Reaction Status Date / Time No Known Allergies Allergy Verified 12/02/19 14:17 Home Medications Medication Instructions Recorded Confirmed Last Taken Type Ipratropium/Albuterol Sulfate 1 ampul IH Q6HR #120 ampul.neb 02/24/20 08/17/20 Unknown Rx [DUONEB *Not for PRN Use*] predniSONE [Deltasone] 20 mg PO QDAY #5 tablet 02/25/20 08/17/20 Unknown Rx Famotidine [Pepcid] 40 mg PO QHS #5 tablet 02/26/20 08/17/20 Unknown Rx diphenhydrAMINE [Benadryl CAP] 50 mg PO Q8HR PRN #14 capsule 02/26/20 08/17/20 Unknown Rx Dexamethasone [Taperdex] 1.5 mg PO DAILY 7 Days #1 tab.ds.pk 03/14/20 08/17/20 Unknown Rx Promethazine HCl [Promethazine TAB] 12.5 mg PO I0ISAIA PRN #12 tab 05/09/20 08/17/20 Unknown Rx Atovaquone [Mepron] 750 mg PO BID 25 Days ml 08/19/20 Unknown Rx Cefdinir 300 mg PO BID #10 capsule 08/19/20 Unknown Rx Dolutegravir [Tivicay] 50 mg PO QDAY #30 tablet 08/19/20 Unknown Rx Emtricitabine [Emtriva] 200 mg PO QDAY #30 capsule 08/19/20 Unknown Rx Famotidine [Pepcid] 20 mg PO BID #60 tablet 08/19/20 Unknown Rx Tenofovir [Viread] 300 mg PO QDAY #30 tablet 08/19/20 Unknown Rx Albuterol Sulfate [Proventil Hfa] 6.7 gm IH QID #1 hfa.aer.ad 11/26/20 Unknown Rx Benzonatate [Tessalon Perles] 100 mg PO Q8HR #20 capsule 11/26/20 Unknown Rx Sulfamethoxazole/Trimethoprim 1 each PO BID 10 Days #20 tablet 11/26/20 Unknown Rx [Bactrim DS TAB] Active Meds: Active Medications Acetaminophen (Acetaminophen 325 Mg Tab) 650 mg PO Q4H PRN PRN Reason: Pain MILD(1-3)/Fever >100.5/LIU Enoxaparin Sodium (Enoxaparin 40 Mg/0.4 Ml Inj) 40 mg SUB-Q QDAY@2200 CEFERINO; Protocol Sodium Chloride (Nacl 0.9% 1000 Ml) 1,000 mls @ 75 mls/hr IV DIRECT CEFERINO Ceftriaxone Sodium (Rocephin/Ns 2 Gm/100 Ml) 2 gm in 100 mls @ 200 mls/hr IV Q24H CEFERINO; Protocol Azithromycin (Zithromax/Ns) 500 mg in 250 mls @ 250 mls/hr IV Q24H CEFERINO; Protocol Morphine Sulfate (Morphine 2 Mg/1 Ml Inj) 2 mg IV Q4H PRN PRN Reason: Pain, Moderate (4-6) Ondansetron HCl (Ondansetron 4 Mg/2 Ml Inj) 4 mg IV Q8H PRN PRN Reason: Nausea And Vomiting Sodium Chloride (Sodium Chloride 0.9% 10 Ml Flush Syringe) 10 ml IV BID CEFERINO Sodium Chloride (Sodium Chloride 0.9% 10 Ml Flush Syringe) 10 ml IV PRN PRN PRN Reason: LINE FLUSH Review of Systems Constitutional: no fever, no chills Ears, nose, mouth and throat: no nasal congestion, no sore throat Cardiovascular: no chest pain, no palpitations Respiratory: cough, shortness of breath Gastrointestinal: no abdominal pain, no nausea, no vomiting, no diarrhea, no loss of appetite Genitourinary Male: no dysuria, no hematuria, no flank pain Musculoskeletal: no neck pain, no low back pain Integumentary: no rash, no pruritis Neurological: no headaches, no confusion Psychiatric: no anxiety, no depression Endocrine: no polyphagia, no polydipsia, no polyuria, no nocturia Exam - Constitutional Vitals: Temp Pulse Resp BP Pulse Ox 99 F 91 H 26 H 114/68 92 12/06/20 01:18 12/06/20 03:46 12/06/20 03:46 12/06/20 03:46 12/06/20 03:46 General appearance: Present: no acute distress, well-nourished - EENT Eyes: Present: PERRL, EOM intact. Absent: scleral icterus ENT: hearing intact, clear oral mucosa, dentition normal - Neck Neck: Present: supple, normal ROM - Respiratory Respiratory effort: normal Respiratory: bilateral: diminished - Cardiovascular Rhythm: regular Heart Sounds: Present: S1 & S2. Absent: gallop, systolic murmur, diastolic murmur, rub, click - Extremities Extremities: no ischemia, pulses intact, pulses symmetrical, No edema, normal temperature, normal color Peripheral Pulses: within normal limits - Abdominal General gastrointestinal: Present: soft, non-tender, non-distended, normal bowel sounds. Absent: mass - Integumentary Integumentary: Present: clear, warm, dry, normal turgor. Absent: rash - Musculoskeletal Musculoskeletal: strength equal bilaterally - Psychiatric Psychiatric: appropriate mood/affect, intact judgment & insight, memory intact, cooperative - Neurologic Neurologic: CNII-XII intact, no focal deficits, moves all extremities HEART Score - HEART Score Troponin: Troponin T < 0.010 ng/mL (0.00-0.029) 12/06/20 01:50 Results - Labs CBC & Chem 7: 12/06/20 01:50 12/06/20 01:50 Labs: Abnormal lab results 12/06/20 12/06/20 12/06/20 Range/Units 01:50 01:50 01:50 WBC 4.4 L (4.5-11.0) K/mm3 Hgb 10.9 L (11.8-15.2) gm/dl Hct 34.2 L (35.5-45.6) % MCV 78 L (84-94) fl MCH 25 L (28-32) pg RDW 18.0 H (13.2-15.2) % Plt Count 494 H (140-440) K/mm3 [place] % (Auto) 9.7 H (0.0-7.3) % Eos % (Auto) 7.1 H (0.0-4.3) % Lymph # (Auto) 1.0 L (1.2-5.4) K/mm3 INR (0.87-1.13) D-Dimer (0-234) ng/mlDDU Sodium 135 L (137-145) mmol/L BUN 8 L (9-20) mg/dL Glucose 102 H (75-100) mg/dL Calcium 7.7 L (8.4-10.2) mg/dL ALT 5 L (7-56) units/L Lactate Dehydrogenase 212 H (91-180) units/L Albumin 2.8 L (3.9-5) g/dL 12/06/20 12/06/20 Range/Units 01:50 01:50 WBC (4.5-11.0) K/mm3 Hgb (11.8-15.2) gm/dl Hct (35.5-45.6) % MCV (84-94) fl MCH (28-32) pg RDW (13.2-15.2) % Plt Count (140-440) K/mm3 [place] % (Auto) (0.0-7.3) % Eos % (Auto) (0.0-4.3) % Lymph # (Auto) (1.2-5.4) K/mm3 INR 1.16 H (0.87-1.13) D-Dimer 636.67 H (0-234) ng/mlDDU Sodium (137-145) mmol/L BUN (9-20) mg/dL Glucose (75-100) mg/dL Calcium (8.4-10.2) mg/dL ALT (7-56) units/L Lactate Dehydrogenase (91-180) units/L Albumin (3.9-5) g/dL Assessment and Plan - Patient Problems (1) Bilateral pneumonia Current Visit: Yes Status: Acute Plan to address problem: Patient placed on empiric IV antibiotics. We will await blood culture results. (2) HIV antibody positive Current Visit: No Status: Acute Plan to address problem: Unknown foot CD4 counts. Patient states he is on antiretroviral agent. We will continue on other routine home medications including Bactrim. (3) Hypoxia Current Visit: No Status: Acute Plan to address problem: Secondary to the pneumonia. We will place on oxygen and keep O2 saturation greater or equal to 94%. (4) Suspected COVID-19 virus infection Current Visit: Yes Status: Acute Plan to address problem: Patient placed on isolation precautions. We await COVID-19 testing. Meanwhile placed on IV steroid. Consult placed to infectious disease for evaluation. (5) DVT prophylaxis Current Visit: No Status: Acute Plan to address problem: Patient placed on subcutaneous Lovenox. (6) Full code status Current Visit: Yes Status: Acute Plan to address problem: Patient is a full code.
[2020-12-06] MEDS: SODIUM CHLORIDE 0.9% 1000 ML 1,000 ML IV SCH ×2 (04:18→19:31)
[2020-12-06] MEDS: EMTRICITABINE 200 MG CAP PO SCH (09:55)
[2020-12-06] MEDS: TENOFOVIR 300 MG TAB PO SCH (09:56)
[2020-12-06] MEDS: DOLUTEGRAVIR 50 MG TAB PO SCH (09:56)
[2020-12-06] MEDS ORDERED: dexAMETHasone 4 MG/ML VIAL IV SCH ×2 (10:00→22:00)
[2020-12-06] MEDS ORDERED: SULFAMETHOXAZOLE/TRIMETHOPRIM 800/160MG DS TAB PO SCH (10:00)
[2020-12-06] MEDS: IPRATROPIUM/ALBUTEROL SULFATE 3 ML AMPUL.NEB IH SCH ×3 (10:29→21:37)
--- NOTE | 2020-12-06 10:54 | Electrocardiograph Report ---
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
--- NOTE | 2020-12-06 12:43 | Event Note ---
Date: 12/06/20 Patient seen and examined today resting comfortably although still with shortness of breath on supine position reports cough. Previous imaging study did reveal mass in the hilum area previous documentation by pulmonary shows that patient had a bronchoscopy in 2019 that showed negative cytology and only fungal entities noted. Will obtain an echocardiogram as none has been obtained in this patient with recurrent shortness of breath and hypoxic respiratory failure with underlying cough in supine position. Will await ID input and also will consult pulmonary. Continue current oxygen management
[2020-12-06] MEDS: BENZONATATE 100 MG CAP PO SCH ×2 (13:17→23:10)
--- NOTE | 2020-12-06 13:38 | Consultation ---
History of Present Illness - Reason for Consult Consult date: 12/06/20 HIV, pneumonia Requesting physician: JANAE HARDWICK - History of Present Illness The patient is a 35-year-old male with HIV, recent admission in October 2020 with COVID-19 was admitted to the hospital with complaints of cough and shortness of breath. Reported compliance with his HIV medications. In the interim, he came to the emergency room with similar complaints and was given Bactrim and sent home. Now, noted to be hypoxic with oxygen saturation of 89% on room air, hence admitted. Chest x-ray revealed bilateral infiltrates, worse on the right side. No fever. With regards to HIV, he was recently started on Biktarvy and follows with Dr. Garcia in the ID clinic. His most recent CD4 count had shown improvement to 48, 13% in October 2020. In August 2020 it was 27, 4%. Most recent viral load in October 2020 was down to 25. Review of Systems: General: no fevers,chills or rigors HEENT: no new visual disturbance Respiratory: Positive for cough and shortness of breath Cardiovascular: No chest pain, syncope Gastrointestinal: No nausea, vomiting or diarrhea Genitourinary: No dysuria or hematuria Musculoskeletal: No new or worsening neck pain or back pain Neurologic: No headaches, seizures Hematologic: No easy bruising or bleeding Endocrine: No night sweats or acute weight loss Skin: negative for rash, jaundice Psychiatric: No suicidal or homicidal ideation Past History Past Medical History: other (HIV positive-on antiretroviral.,PNA in December 2019, PNA in February 2020, Covid-26 November 2020) Past Surgical History: No surgical history Social history: no significant social history Family history: no significant family history Medications and Allergies Allergies Allergy/AdvReac Type Severity Reaction Status Date / Time No Known Allergies Allergy Verified 12/02/19 14:17 Home Medications Medication Instructions Recorded Confirmed Last Taken Type Ipratropium/Albuterol Sulfate 1 ampul IH Q6HR #120 ampul.neb 02/24/20 08/17/20 Unknown Rx [DUONEB *Not for PRN Use*] predniSONE [Deltasone] 20 mg PO QDAY #5 tablet 02/25/20 08/17/20 Unknown Rx Famotidine [Pepcid] 40 mg PO QHS #5 tablet 02/26/20 08/17/20 Unknown Rx diphenhydrAMINE [Benadryl CAP] 50 mg PO Q8HR PRN #14 capsule 02/26/20 08/17/20 Unknown Rx Dexamethasone [Taperdex] 1.5 mg PO DAILY 7 Days #1 tab.ds.pk 03/14/20 08/17/20 Unknown Rx Promethazine HCl [Promethazine TAB] 12.5 mg PO [id number] PRN #12 tab 05/09/20 08/17/20 Unknown Rx Atovaquone [Mepron] 750 mg PO BID 25 Days ml 08/19/20 Unknown Rx Cefdinir 300 mg PO BID #10 capsule 08/19/20 Unknown Rx Dolutegravir [Tivicay] 50 mg PO QDAY #30 tablet 08/19/20 Unknown Rx Emtricitabine [Emtriva] 200 mg PO QDAY #30 capsule 08/19/20 Unknown Rx Famotidine [Pepcid] 20 mg PO BID #60 tablet 08/19/20 Unknown Rx Tenofovir [Viread] 300 mg PO QDAY #30 tablet 08/19/20 Unknown Rx Albuterol Sulfate [Proventil Hfa] 6.7 gm IH QID #1 hfa.aer.ad 11/26/20 Unknown Rx Benzonatate [Tessalon Perles] 100 mg PO Q8HR #20 capsule 11/26/20 Unknown Rx Sulfamethoxazole/Trimethoprim 1 each PO BID 10 Days #20 tablet 11/26/20 Unknown Rx [Bactrim DS TAB] Active Meds: Active Medications Acetaminophen (Acetaminophen 325 Mg Tab) 650 mg PO Q4H PRN PRN Reason: Pain MILD(1-3)/Fever >100.5/LIU Albuterol/Ipratropium (Ipratropium/Albuterol Sulfate 3 Ml Ampul.Neb) 1 ampul IH Q6HRT [facility] Last Admin: 12/06/20 10:29 Dose: 1 ampul Documented by: Benzonatate (Benzonatate 100 Mg Cap) 100 mg PO Q8HR [facility] Last Admin: 12/06/20 13:17 Dose: 100 mg Documented by: Dexamethasone (Dexamethasone 4 Mg/Ml Vial) 6 mg IV DAILY [facility] Stop: 12/14/20 10:01 Last Admin: 12/06/20 09:57 Dose: 6 mg Documented by: Emtricitabine (Emtricitabine 200 Mg Cap) 200 mg PO QDAY [facility] Last Admin: 12/06/20 09:55 Dose: 200 mg Documented by: Enoxaparin Sodium (Enoxaparin 40 Mg/0.4 Ml Inj) 40 mg SUB-Q QDAY@2200 [facility]; Protocol Sodium Chloride (Nacl 0.9% 1000 Ml) 1,000 mls @ 75 mls/hr IV DIRECT [facility] Last Admin: 12/06/20 04:18 Dose: 75 mls/hr Documented by: Ceftriaxone Sodium (Rocephin/Ns 2 Gm/100 Ml) 2 gm in 100 mls @ 200 mls/hr IV Q24H [facility]; Protocol Azithromycin (Zithromax/Ns) 500 mg in 250 mls @ 250 mls/hr IV Q24H [facility]; Protocol Morphine Sulfate (Morphine 2 Mg/1 Ml Inj) 2 mg IV Q4H PRN PRN Reason: Pain, Moderate (4-6) Ondansetron HCl (Ondansetron 4 Mg/2 Ml Inj) 4 mg IV Q8H PRN PRN Reason: Nausea And Vomiting Sodium Chloride (Sodium Chloride 0.9% 10 Ml Flush Syringe) 10 ml IV BID [facility] Last Admin: 12/06/20 09:57 Dose: 10 ml Documented by: Sodium Chloride (Sodium Chloride 0.9% 10 Ml Flush Syringe) 10 ml IV PRN PRN PRN Reason: LINE FLUSH Tenofovir Disoproxil Fumarate (Tenofovir 300 Mg Tab) 300 mg PO QDAY [facility] Last Admin: 12/06/20 09:56 Dose: 300 mg Documented by: Physical Examination - Physical Exam Narrative exam: Physical Exam: Constitutional: Alert, cooperative. No acute distress Head, Ears, Nose: Normocephalic, atraumatic. External ears, nose normal Eyes: Conjunctivae/corneas clear. No icterus. No ptosis. Neck: Supple, no meningeal signs Cardiovascular: S1, S2 normal. Respiratory: b/l crackles + GI: Soft, non-tender; bowel sounds normal. No peritoneal signs Musculoskeletal: No pedal edema, no cyanosis. Skin: No rash or abscess Hem/Lymphatic: No palpable cervical or supraclavicular nodes. No lymphangitis Psych: Mood ok. Affect normal Neurological: Awake, alert, oriented. No gross abnormality - Constitutional Vitals: Vital Signs Temp Pulse Resp BP Pulse Ox 99 F 75 20 99/63 94 04/29/21 01:18 12/06/20 10:29 12/06/20 10:29 12/06/20 04:50 12/06/20 10:25 Temperature -Last 24 Hours Temperature 99 F Temperature 98.5 F Results - Labs CBC & Chem 7: 12/06/20 01:50 12/06/20 01:50 Labs: Abnormal lab results 12/06/20 12/06/20 12/06/20 Range/Units 01:50 01:50 01:50 WBC 4.4 L (4.5-11.0) K/mm3 Hgb 10.9 L (11.8-15.2) gm/dl Hct 34.2 L (35.5-45.6) % MCV 78 L (84-94) fl MCH 25 L (28-32) pg RDW 18.0 H (13.2-15.2) % Plt Count 494 H (140-440) K/mm3 [place] % (Auto) 9.7 H (0.0-7.3) % Eos % (Auto) 7.1 H (0.0-4.3) % Lymph # (Auto) 1.0 L (1.2-5.4) K/mm3 INR (0.87-1.13) D-Dimer (0-234) ng/mlDDU Sodium 135 L (137-145) mmol/L BUN 8 L (9-20) mg/dL Glucose 102 H (75-100) mg/dL Calcium 7.7 L (8.4-10.2) mg/dL ALT 5 L (7-56) units/L Lactate Dehydrogenase 212 H (91-180) units/L C-Reactive Protein (0.00-1.30) mg/dL Albumin 2.8 L (3.9-5) g/dL 12/06/20 12/06/20 12/06/20 Range/Units 01:50 01:50 01:50 WBC (4.5-11.0) K/mm3 Hgb (11.8-15.2) gm/dl Hct (35.5-45.6) % MCV (84-94) fl MCH (28-32) pg RDW (13.2-15.2) % Plt Count (140-440) K/mm3 [place] % (Auto) (0.0-7.3) % Eos % (Auto) (0.0-4.3) % Lymph # (Auto) (1.2-5.4) K/mm3 INR 1.16 H (0.87-1.13) D-Dimer 636.67 H (0-234) ng/mlDDU Sodium (137-145) mmol/L BUN (9-20) mg/dL Glucose 103 H (75-100) mg/dL Calcium (8.4-10.2) mg/dL ALT (7-56) units/L Lactate Dehydrogenase 222 H (91-180) units/L C-Reactive Protein 3.90 H (0.00-1.30) mg/dL Albumin (3.9-5) g/dL - Imaging and Cardiology Chest x-ray: report reviewed, image reviewed (R pneumonia ) Assessment and Plan Cultures: Previous chart and cultures reviewed. 12/06/2020 blood culture: In process A/P: 35-year-old male with HIV, recent admission in October 2020 with COVID-19 was admitted to the hospital with complaints of cough and shortness of breath: #Bilateral pneumonia, worse on right compared to left. This is chronic and has been present since 2019. Underwent a bronchoscopy by Dr. Ardon in October 2019. BAL culture grew usual respiratory shari, it seems fungal culture got canceled. Fungal stain was positive for hyphae and spores, negative for PJP. His CT scan in August 2020 showed a persistent masslike consolidation in the right hilar region. #Splenic hypodensities noted on previous CT scan #HIV: Compliant with Biktarvy. Will update viral load and CD4 count. #Bilateral lower extremity purplish lesions: These were biopsied by dermatology outpatient, patient did not follow-up to get the results. Recs: -Cryptococcal antigen ordered -CT chest, abdomen and pelvis with IV contrast ordered -Fungal blood culture ordered -Aspergillus galactomannan ordered -Histoplasma Ur Ag, blasto Ur Ag ordered -Cocci Ab ordered -update viral load and CD4 count León Velásquez MD, FACP [facility] ([facility] O: [phone] F: [phone]
--- NOTE | 2020-12-06 13:56 | Consultation ---
History of Present Illness Consult date: 12/06/20 Requesting physician: JANAE HARDWICK Reason for consult: abnormal CXR/CT History of present illness: PULMONARY/CCM CONSULT NOTE (Full dictation # [id number]) Please see dictated notes for full details Past History Past Medical History: other (HIV positive-on antiretroviral.,PNA in December 2019, PNA in February 2020, Covid-26 November 2020) Past Surgical History: No surgical history Social history: no significant social history Family history: no significant family history Medications and Allergies Allergies Allergy/AdvReac Type Severity Reaction Status Date / Time No Known Allergies Allergy Verified 12/02/19 14:17 Home Medications Medication Instructions Recorded Confirmed Last Taken Type Ipratropium/Albuterol Sulfate 1 ampul IH Q6HR #120 ampul.neb 02/24/20 08/17/20 Unknown Rx [DUONEB *Not for PRN Use*] predniSONE [Deltasone] 20 mg PO QDAY #5 tablet 02/25/20 08/17/20 Unknown Rx Famotidine [Pepcid] 40 mg PO QHS #5 tablet 02/26/20 08/17/20 Unknown Rx diphenhydrAMINE [Benadryl CAP] 50 mg PO Q8HR PRN #14 capsule 02/26/20 08/17/20 Unknown Rx Dexamethasone [Taperdex] 1.5 mg PO DAILY 7 Days #1 tab.ds.pk 03/14/20 08/17/20 Unknown Rx Promethazine HCl [Promethazine TAB] 12.5 mg PO [id number] PRN #12 tab 05/09/20 08/17/20 Unknown Rx Atovaquone [Mepron] 750 mg PO BID 25 Days ml 08/19/20 Unknown Rx Cefdinir 300 mg PO BID #10 capsule 08/19/20 Unknown Rx Dolutegravir [Tivicay] 50 mg PO QDAY #30 tablet 08/19/20 Unknown Rx Emtricitabine [Emtriva] 200 mg PO QDAY #30 capsule 08/19/20 Unknown Rx Famotidine [Pepcid] 20 mg PO BID #60 tablet 08/19/20 Unknown Rx Tenofovir [Viread] 300 mg PO QDAY #30 tablet 08/19/20 Unknown Rx Albuterol Sulfate [Proventil Hfa] 6.7 gm IH QID #1 hfa.aer.ad 11/26/20 Unknown Rx Benzonatate [Tessalon Perles] 100 mg PO Q8HR #20 capsule 11/26/20 Unknown Rx Sulfamethoxazole/Trimethoprim 1 each PO BID 10 Days #20 tablet 11/26/20 Unknown Rx [Bactrim DS TAB] Active Meds: Active Medications Acetaminophen (Acetaminophen 325 Mg Tab) 650 mg PO Q4H PRN PRN Reason: Pain MILD(1-3)/Fever >100.5/LIU Albuterol/Ipratropium (Ipratropium/Albuterol Sulfate 3 Ml Ampul.Neb) 1 ampul IH Q6HRT [facility] Last Admin: 12/06/20 10:29 Dose: 1 ampul Documented by: Benzonatate (Benzonatate 100 Mg Cap) 100 mg PO Q8HR [facility] Last Admin: 12/06/20 13:17 Dose: 100 mg Documented by: Dexamethasone (Dexamethasone 4 Mg/Ml Vial) 6 mg IV DAILY [facility] Stop: 12/14/20 10:01 Last Admin: 12/06/20 09:57 Dose: 6 mg Documented by: Emtricitabine (Emtricitabine 200 Mg Cap) 200 mg PO QDAY [facility] Last Admin: 12/06/20 09:55 Dose: 200 mg Documented by: Enoxaparin Sodium (Enoxaparin 40 Mg/0.4 Ml Inj) 40 mg SUB-Q QDAY@2200 [facility]; Protocol Sodium Chloride (Nacl 0.9% 1000 Ml) 1,000 mls @ 75 mls/hr IV DIRECT [facility] Last Admin: 12/06/20 04:18 Dose: 75 mls/hr Documented by: Ceftriaxone Sodium (Rocephin/Ns 2 Gm/100 Ml) 2 gm in 100 mls @ 200 mls/hr IV Q24H [facility]; Protocol Azithromycin (Zithromax/Ns) 500 mg in 250 mls @ 250 mls/hr IV Q24H [facility]; Protocol Morphine Sulfate (Morphine 2 Mg/1 Ml Inj) 2 mg IV Q4H PRN PRN Reason: Pain, Moderate (4-6) Ondansetron HCl (Ondansetron 4 Mg/2 Ml Inj) 4 mg IV Q8H PRN PRN Reason: Nausea And Vomiting Sodium Chloride (Sodium Chloride 0.9% 10 Ml Flush Syringe) 10 ml IV BID [facility] Last Admin: 12/06/20 09:57 Dose: 10 ml Documented by: Sodium Chloride (Sodium Chloride 0.9% 10 Ml Flush Syringe) 10 ml IV PRN PRN PRN Reason: LINE FLUSH Tenofovir Disoproxil Fumarate (Tenofovir 300 Mg Tab) 300 mg PO QDAY [facility] Last Admin: 12/06/20 09:56 Dose: 300 mg Documented by: Physical Examination Vital signs: Vital Signs Temp Pulse Resp BP Pulse Ox 98.5 F 100 H 18 111/65 89 12/06/20 00:35 12/06/20 00:35 12/06/20 00:35 12/06/20 00:35 12/06/20 00:35 Results - Laboratory Findings CBC and BMP: 12/07/20 06:25 12/07/20 06:25 PT/INR, D-dimer PT 14.6 Sec. (12.2-14.9) 12/06/20 01:50 INR 1.16 (0.87-1.13) H 12/06/20 01:50 D-Dimer 636.67 ng/mlDDU (0-234) H 12/06/20 01:50 Abnormal lab findings: Abnormal Labs 12/06/20 12/06/20 12/06/20 01:50 01:50 01:50 WBC 4.4 L Hgb 10.9 L Hct 34.2 L MCV 78 L MCH 25 L RDW 18.0 H Plt Count 494 H [place] % (Auto) 9.7 H Eos % (Auto) 7.1 H Lymph # (Auto) 1.0 L INR D-Dimer Sodium 135 L BUN 8 L Glucose 102 H Calcium 7.7 L ALT 5 L Lactate Dehydrogenase 212 H C-Reactive Protein Albumin 2.8 L 12/06/20 12/06/20 12/06/20 01:50 01:50 01:50 WBC Hgb Hct MCV MCH RDW Plt Count [place] % (Auto) Eos % (Auto) Lymph # (Auto) INR 1.16 H D-Dimer 636.67 H Sodium BUN Glucose 103 H Calcium ALT Lactate Dehydrogenase 222 H C-Reactive Protein 3.90 H Albumin
[2020-12-06] MEDS: ENOXAPARIN 40 MG/0.4 ML INJ SUB-Q SCH (23:10)
[2020-12-07] MEDS: cefTRIAXone/NS 2 GM/100 ML 2 GM/100 ML BAG IV SCH (01:37)
[2020-12-07] MEDS ORDERED: AZITHROMYCIN/NS 500 MG/250 ML 500 MG/250 ML BAG IV SCH (03:00)
[2020-12-07] MEDS: IPRATROPIUM/ALBUTEROL SULFATE 3 ML AMPUL.NEB IH SCH ×4 (03:08→19:46)
[2020-12-07] MEDS: BENZONATATE 100 MG CAP PO SCH ×3 (06:22→22:00)
[2020-12-07 07:05] LABS: Basophils % (Auto) 0.1 % (0.0-1.8); Eosinophils % (Auto) 0.1 % (0.0-4.3); Hematocrit 30.7 % (35.5-45.6); Hemoglobin 9.8 gm/dl (11.8-15.2); Lymphocytes # (Auto) 0.8 K/mm3 (1.2-5.4); Mean Corpuscular HGB Conc 32 % (32-34); Mean Corpuscular Volume 79 fl (84-94); Monocytes # (Auto) 0.4 K/mm3 (0.0-0.8); Monocytes % (Auto) 14.9 % (0.0-7.3); Platelet Count 484 K/mm3 (140-440); Red Cell Distribution Width 17.5 % (13.2-15.2)
[2020-12-07 07:16] LABS: INR 1.13 (0.87-1.13)
--- NOTE | 2020-12-07 07:16 | Progress Note ---
Assessment and Plan Assessment and plan: 35-year-old male with known history of HIV with unknown CD4 count presenting to the emergency room today complaining of shortness of breath and difficulty breathing. Symptoms were said to have been ongoing for the past 2 to 3 days. Shortness of breath is worse on exertion. He denies any fever or chills, no chest pain, no nausea vomiting, no abdominal pain, no diarrhea, no headache or dizziness, no diaphoresis. Patient states that he tested positive for COVID-19 about a month ago but later tested negative about 2 weeks later. Upon arrival in the emergency room patient had an oxygen saturation of about 89% on room air. Work-up in the emergency room today chest x-ray reveals: Bilateral parenchymal disease,right greater than left. Mild disease in the left upper lobe has improved. She has been admitted with bilateral pneumonia with hypoxia. Will also rule out COVID-19. 12/06:Patient seen and examined today resting comfortably although still with shortness of breath on supine position reports cough. Previous imaging study did reveal mass in the hilum area previous documentation by pulmonary shows that patient had a bronchoscopy in 2019 that showed negative cytology and only fungal entities noted. Will obtain an echocardiogram as none has been obtained in this patient with recurrent shortness of breath and hypoxic respiratory failure with underlying cough in supine position. Will await ID input and also will consult pulmonary. Continue current oxygen management 12/07: Patient underwent follow-up testing today including recommendations by ID as noted below. Otherwise we will continue current management with antibiotics. It appears a fungal culture. ID was canceled but BAL done at that time grew normal shari. Will follow culture results at this time. Pulmonary input is appreciated. Anticipate discharge when symptomatic improvement is noted Covid test result is still pending. Cryptococcal antigen ordered -CT chest, abdomen and pelvis with IV contrast ordered -Fungal blood culture ordered -Aspergillus galactomannan ordered -Histoplasma Ur Ag, blasto Ur Ag ordered -Cocci Ab ordered -update viral load and CD4 count (1) Bilateral pneumonia Current Visit: Yes Status: Acute Plan to address problem: Patient placed on empiric IV antibiotics. We will await blood culture results. (2) HIV antibody positive Current Visit: No Status: Acute Plan to address problem: Unknown foot CD4 counts. Patient states he is on antiretroviral agent. We will continue on other routine home medications including Bactrim. (3) Hypoxia Current Visit: No Status: Acute Plan to address problem: Secondary to the pneumonia. We will place on oxygen and keep O2 saturation greater or equal to 94%. (4) Suspected COVID-19 virus infection Current Visit: Yes Status: Acute Plan to address problem: Patient placed on isolation precautions. We await COVID-19 testing. Meanwhile placed on IV steroid. Consult placed to infectious disease for evaluation. (5) known history of perihilar mass (6) DVT prophylaxis Current Visit: No Status: Acute Plan to address problem: Patient placed on subcutaneous Lovenox. (7) Full code status Current Visit: Yes Status: Acute Plan to address problem: Patient is a full code. History Interval history: Patient seen and examined, resting comfortable. No new complaints Hospitalist Physical - Physical exam Narrative exam: VITAL SIGNS: Reviewed. GENERAL: The patient appears normally developed, still with some shortness of breath on exertion vital signs as documented. HEAD: No signs of head trauma. EYES: Pupils are equal. Extraocular motions intact. EARS: Hearing grossly intact. MOUTH: Oropharynx is normal. NECK: No adenopathy, no JVD. CHEST: Chest with diminished breath sounds bilaterally. No wheezes, rales, or rhonchi. CARDIAC: Regular rate and rhythm. S1 and S2, without murmurs, gallops, or rubs. VASCULAR: No Edema. Peripheral pulses normal and equal in all extremities. ABDOMEN: Soft, non tender and non distended. No rebound or guarding, and no masses palpated. Bowel Sounds normal. MUSCULOSKELETAL: Good range of motion of all major joints. Extremities without clubbing, cyanosis or edema. NEUROLOGIC EXAM: Alert and oriented x 3 No focal sensory or strength deficits. Speech normal. Follows commands. PSYCHIATRIC: Mood normal. SKIN: detail exam as documented in skin assessment - Constitutional Vitals: Temp Pulse Resp BP Pulse Ox 98.4 F 98 H 18 88/35 90 12/07/20 04:37 12/07/20 04:37 12/07/20 04:37 12/07/20 04:37 12/07/20 04:37 General appearance: Present: no acute distress, well-nourished HEART Score - HEART Score Troponin: Troponin T < 0.010 ng/mL (0.00-0.029) 12/06/20 01:50 Results - Labs CBC & Chem 7: 12/07/20 06:25 04/30/21 06:25 Labs: Laboratory Last Values WBC 2.9 K/mm3 (4.5-11.0) L 12/07/20 06:25 RBC 3.90 M/mm3 (3.65-5.03) 12/07/20 06:25 Hgb 9.8 gm/dl (11.8-15.2) L 12/07/20 06:25 Hct 30.7 % (35.5-45.6) L 12/07/20 06:25 MCV 79 fl (84-94) L 12/07/20 06:25 MCH 25 pg (28-32) L 12/07/20 06:25 MCHC 32 % (32-34) 12/07/20 06:25 RDW 17.5 % (13.2-15.2) H 12/07/20 06:25 Plt Count 484 K/mm3 (140-440) H 12/07/20 06:25 Lymph % (Auto) 27.0 % (13.4-35.0) 12/07/20 06:25 [place] % (Auto) 14.9 % (0.0-7.3) H 12/07/20 06:25 Eos % (Auto) 0.1 % (0.0-4.3) 12/07/20 06:25 Baso % (Auto) 0.1 % (0.0-1.8) 12/07/20 06:25 Lymph # (Auto) 0.8 K/mm3 (1.2-5.4) L 12/07/20 06:25 [place] # (Auto) 0.4 K/mm3 (0.0-0.8) 12/07/20 06:25 Eos # (Auto) 0.0 K/mm3 (0.0-0.4) 12/07/20 06:25 Baso # (Auto) 0.0 K/mm3 (0.0-0.1) 12/07/20 06:25 Seg Neutrophils % 57.9 % (40.0-70.0) 12/07/20 06:25 Seg Neutrophils # 1.7 K/mm3 (1.8-7.7) L 12/07/20 06:25 PT 14.6 Sec. (12.2-14.9) 12/06/20 01:50 INR 1.16 (0.87-1.13) H 12/06/20 01:50 APTT 36.5 Sec. (24.2-36.6) 12/06/20 01:50 D-Dimer 636.67 ng/mlDDU (0-234) H 12/06/20 01:50 Sodium 135 mmol/L (137-145) L 12/06/20 01:50 Potassium 4.0 mmol/L (3.6-5.0) 12/06/20 01:50 Chloride 105.0 mmol/L (98-107) 12/06/20 01:50 Carbon Dioxide 24 mmol/L (22-30) 12/06/20 01:50 Anion Gap 10 mmol/L 12/06/20 01:50 BUN 8 mg/dL (9-20) L 12/06/20 01:50 Creatinine 0.9 mg/dL (0.8-1.3) 12/06/20 01:50 Estimated GFR > 60 ml/min 12/06/20 01:50 BUN/Creatinine Ratio 9 % 12/06/20 01:50 Glucose 102 mg/dL (75-100) H 12/06/20 01:50 Glucose 103 mg/dL (75-100) H 12/06/20 01:50 Calcium 7.7 mg/dL (8.4-10.2) L 12/06/20 01:50 Ferritin 195.2 ng/mL (30.0-300.0) 12/06/20 01:50 Total Bilirubin 0.20 mg/dL (0.1-1.2) 12/06/20 01:50 AST 12 units/L (5-40) 12/06/20 01:50 ALT 5 units/L (7-56) L 12/06/20 01:50 Alkaline Phosphatase 55 units/L (35-129) 12/06/20 01:50 Lactate Dehydrogenase 212 units/L (91-180) H 12/06/20 01:50 Lactate Dehydrogenase 222 units/L (91-180) H 12/06/20 01:50 Troponin T < 0.010 ng/mL (0.00-0.029) 12/06/20 01:50 C-Reactive Protein 3.90 mg/dL (0.00-1.30) H 12/06/20 01:50 NT-Pro-B Natriuret Pep 98.86 pg/mL (0-450) 12/06/20 01:50 Total Protein 6.9 g/dL (6.3-8.2) 12/06/20 01:50 Albumin 2.8 g/dL (3.9-5) L 12/06/20 01:50 Albumin/Globulin Ratio 0.7 % 12/06/20 01:50 Procalcitonin 0.06 ng/mL (<0.15) 12/06/20 01:50 Microbiology: Microbiology 12/06/20 01:50 Peripheral/Venous Blood Culture - Preliminary NO GROWTH AFTER 24 HOURS 12/06/20 01:45 Peripheral/Venous Blood Culture - Preliminary NO GROWTH AFTER 24 HOURS 12/06/20 15:54 Peripheral/Venous Blood Fungal Culture - Preliminary Culture in Progress 12/06/20 01:50 Serum Cryptococcal Antigen - Final Thakur/IV: Voiding Method Toilet Active Medications - Current Medications Current Medications: Generic Name Dose Route Start Last Admin Trade Name Freq PRN Reason Stop Dose Admin Acetaminophen 650 mg 12/06/20 03:46 Acetaminophen 325 Mg Tab PO Q4H PRN Pain MILD(1-3)/Fever >100.5/LIU Albuterol/Ipratropium 1 ampul 12/06/20 08:00 12/07/20 03:08 Ipratropium/Albuterol Sulfate 3 Ml Ampul.Neb IH 1 ampul Q6HRT [facility] Administration Benzonatate 100 mg 12/06/20 14:00 12/07/20 06:22 Benzonatate 100 Mg Cap PO 100 mg Q8HR [facility] Administration Emtricitabine 200 mg 12/06/20 10:00 12/06/20 09:55 Emtricitabine 200 Mg Cap PO 200 mg QDAY [facility]FER[facility] Administration Enoxaparin Sodium 40 mg 12/06/20 22:00 12/06/20 23:10 Enoxaparin 40 Mg/0.4 Ml Inj SUB-Q 40 mg QDAY@2200 CEFERINO Administration Protocol Sodium Chloride 1,000 mls @ 75 mls/hr 12/06/20 04:00 12/06/20 19:31 Nacl 0.9% 1000 Ml IV 75 mls/hr DIRECT [facility]FERINO Administration Ceftriaxone Sodium 2 gm in 100 mls @ 200 mls/hr 12/07/20 02:00 12/07/20 01:37 Rocephin/Ns 2 Gm/100 Ml IV 200 mls/hr Q24H [facility] Administration Protocol Azithromycin 500 mg in 250 mls @ 250 mls/hr 12/07/20 03:00 12/07/20 03:00 Zithromax/Ns IV 250 mls/hr Q24H [facility] Administration Protocol Morphine Sulfate 2 mg 12/06/20 03:46 Morphine 2 Mg/1 Ml Inj IV Q4H PRN Pain, Moderate (4-6) Ondansetron HCl 4 mg 12/06/20 03:46 Ondansetron 4 Mg/2 Ml Inj IV Q8H PRN Nausea And Vomiting Sodium Chloride 10 ml 12/06/20 10:00 12/06/20 23:12 Sodium Chloride 0.9% 10 Ml Flush Syringe IV 10 ml BID [facility]FERINO Administration Sodium Chloride 10 ml 12/06/20 03:46 Sodium Chloride 0.9% 10 Ml Flush Syringe IV PRN PRN LINE FLUSH Tenofovir Disoproxil Fumarate 300 mg 12/06/20 10:00 12/06/20 09:56 Tenofovir 300 Mg Tab PO 300 mg QDAY [facility] Administration
[2020-12-07 07:25] LABS: BUN/Creatinine Ratio 13; Blood Urea Nitrogen 10 mg/dL (9-20); Calcium 7.7 mg/dL (8.4-10.2); Hemolysis Index 0
--- NOTE | 2020-12-07 08:46 | Cat Scan Report ---
CT CHEST WITHOUT CONTRAST CT ABDOMEN AND PELVIS WITH CONTRAST INDICATION : HIV, R lung mass. Splenic lesions. TECHNIQUE: Helical imaging with sagittal and coronal reformated images. 100 cc of Omnipaque [address] CT abdomen and pelvis. All CT scans at this location are performed using CT dose redu ction for TAMANNA by means of automated exposure control. COMPARISON: CTA chest 08/15/2020. CT abdomen pelvis 12/08/2019. FINDINGS: CHEST: There is extensive peribronchial infiltration throughout the right hilum which extends to the lower right upper lobe, right middle lobe and right lower lobe. This has increased by at least 50% s gennaro the previous examination. Overall this has the appearance of extensive pneumonia although right hilar mass or adenopathy cannot be excluded. There is new subtle patchy infiltrate throughout the inf erior left lung since the previous exam. Again this appears infectious in nature. Small right pleural effusion has increased by 50%. No pneumothorax. Heart size is within normal limits. Mildly enlarged right paratracheal, AP window and subcarinal lymph nodes are suspected. Borderline bilateral axillary lymph nodes are also noted and unchanged. No osseous abnormality is appreciated. ABDOMEN/PELVIS: Mild to moderate hepatomegaly is unchanged. No focal liver lesion. Spleen size has d ecreased from 15 cm to 12 cm in length. Small hypodense splenic lesions seen on the previous exam has improved. 2 splenic lesions in the lateral spleen have resolved since the previous exam. The largest splenic lesion measures 1 cm in the posterior spleen. The biliary system, pancreas, adrenal glands a nd kidneys are unremarkable. No evidence for bowel obstruction or focal inflammation. The appendix is not clearly identified but n o inflammatory changes in the right lower quadrant. No free fluid, free air or abscess. The aorta and vascular structures are patent. No aneurysm or stenosis. There is ill-defined soft tiss ue density throughout the retroperitoneum which probably represents shotty lymph nodes. Mildly enlarg ed lymph nodes are noted in both inguinal regions with the largest measuring 1.8 cm in short axis. No osseous abnormality is appreciated. IMPRESSION: Increased peribronchial consolidation throughout most of the right lung since the previous exam. Slig ht increase in small right pleural effusion. There is new mild nodular infiltrates in the left lower lung. Persistent mediastinal adenopathy. This appears to be infectious in nature as described. Splenomegaly has resolved since the previous exam. Splenic lesions have decreased as described. Hepatomegaly. Ill-defined retroperitoneal and inguinal adenopathy is again suggested and not significantly changed. No osseous abnormality is detected. Signer Name: Abe Lozano Jr, MD Signed: 12/07/2020 8:42 AM Workstation Name: [id number]
[2020-12-07] MEDS: TENOFOVIR 300 MG TAB PO SCH (09:58)
[2020-12-07] MEDS: EMTRICITABINE 200 MG CAP PO SCH (09:58)
[2020-12-07] MEDS: DOLUTEGRAVIR 50 MG TAB PO SCH (09:58)
--- NOTE | 2020-12-07 13:30 | Progress Note ---
Assessment and Plan Cultures: Previous chart and cultures reviewed. 12/06/2020 blood culture: no growth 12/06/2020 serum cryptococcal antigen: Negative 12/06/2020 fungal blood culture: In process A/P: 35-year-old male with HIV, recent admission in October 2020 with COVID-19 was admitted to the hospital with complaints of cough and shortness of breath: #Bilateral pneumonia, worse on right compared to left. This is chronic and has been present since 2019. Underwent a bronchoscopy by Dr. Ardon in October 2019. BAL culture grew usual respiratory shari, it seems fungal culture got canceled. Fungal stain was positive for hyphae and spores, negative for PJP. His CT scan in August 2020 showed a persistent masslike consolidation in the right hilar region. Repeat CT showed right hilar mass with infiltrates and mediastinal lymphadenopathy. #Splenic hypodensities noted on previous CT scan. Splenic lesions appear improved on CT scan. Also seen was inguinal and retroperitoneal lymphadenopathy. #HIV: Compliant with Biktarvy. Will update viral load and CD4 count. #Bilateral lower extremity purplish lesions: These were biopsied by dermatology outpatient, patient did not follow-up to get the results. Recs: -f/u pulmonary recs. Consider bronchoscopy with biopsy for histo path + fungal, AFB cultures. Also recommend BAL for fungal and AFB cultures -AFB blood cultures ordered -Continue Biktarvy, therapeutic interchange to TDF, emtricitabine, dolutegravir as per hospital formulary -Please collect and send pending tests ordered 12/06/2020: Serum Aspergillus galactomannan, histoplasma and blasto urinary antigens -continue Ceftriaxone for now. Azithromycin discontinued -Obtain outside derm biopsy results -f/u HIV viral load and CD4 count León Velásquez MD, FACP [facility] O: [phone] F: [phone] Subjective Date of service: 12/07/20 Interval history: No new complaints. Feels the same. Not much sputum. No fever. Objective - Exam Narrative Exam: Physical Exam: Constitutional: Alert, cooperative. No acute distress Head, Ears, Nose: Normocephalic, atraumatic. External ears, nose normal Eyes: Conjunctivae/corneas clear. No icterus. No ptosis. Neck: Supple, no meningeal signs Cardiovascular: S1, S2 normal. Respiratory: b/l crackles + GI: Soft, non-tender; bowel sounds normal. No peritoneal signs Musculoskeletal: No pedal edema, no cyanosis. Skin: b/L LE with purplish lesions Hem/Lymphatic: No palpable cervical or supraclavicular nodes. No lymphangitis Psych: Mood ok. Affect normal Neurological: Awake, alert, oriented. No gross abnormality - Constitutional Vitals: Vital Signs Temp Pulse Resp BP Pulse Ox 98.3 F 92 H 18 107/63 96 12/07/20 11:17 12/07/20 11:17 12/07/20 11:17 12/07/20 11:17 12/07/20 11:17 Temperature -Last 24 Hours Temperature 98.3 F Temperature 98.0 F Temperature 98.4 F Temperature 98.4 F Temperature 98.3 F - Labs CBC & Chem 7: 12/07/20 06:25 12/07/20 06:25 Labs: Abnormal lab results 12/07/20 12/07/20 Range/Units 06:25 06:25 WBC 2.9 L (4.5-11.0) K/mm3 Hgb 9.8 L (11.8-15.2) gm/dl Hct 30.7 L (35.5-45.6) % MCV 79 L (84-94) fl MCH 25 L (28-32) pg RDW 17.5 H (13.2-15.2) % Plt Count 484 H (140-440) K/mm3 Wilbarger % (Auto) 14.9 H (0.0-7.3) % Lymph # (Auto) 0.8 L (1.2-5.4) K/mm3 Seg Neutrophils # 1.7 L (1.8-7.7) K/mm3 Potassium 3.3 L (3.6-5.0) mmol/L Glucose 115 H (75-100) mg/dL Calcium 7.7 L (8.4-10.2) mg/dL
[2020-12-07] MEDS: SODIUM CHLORIDE 0.9% 1000 ML 1,000 ML IV SCH (14:43)
--- NOTE | 2020-12-07 14:52 | Progress Note ---
Assessment and Plan Acute hypoxemic respiratory failure. Bilateral pneumonia, chronic. Human immunodeficiency virus positive. The patient under investigation for COVID-19 infection. Leukopenia. Anemia that is microcytic. - transfer to isolation room for AFB smears X 3 - get CTA chest to evaluate mediastinum better - schedule for bronchoscopy after AFB smears negative - continue to wean supplemental oxygen to keep O2 sats > 92% - continue Bronchodilators (JJ) with pulm hygiene per RT - continue to avoid nephrotoxins, renally dose all medications - mobility protocols to prevent pressure ulcers - PT/OT as tolerated - Wound care per RN/WCT - accuchecks with glycemic control per SSI for target blood glucose < 180 mg/dL - tobacco abstinence strongly counseled at the bedside - home oxygen evaluation at discharge - GI & VTE prophylaxis - Flu & pneumovax per protocol - Pulmonary out patient follow up for PFTs and optimization of respiratory status - prn analgesia per pain score - continue other care per attending / other consultants COVID SPECIFIC INTERVENTIONS - Remdesivir as per ID/Pulmonary developed protocols - systemic steroids for severe COVID-19 infection empirically - follow repeat COVID tests results - zinc and vitamin C supplementation - Monitor inflammatory markers per facility protocol - ferritin, Ddimer, CRP - therapeutic anticoagulation per system Protocol based on d-dimer and clinical considerations - Continue contact and airborne isolation ... re-evaluate in am & prn Subjective Date of service: 12/07/20 Interval history: Patient is seen today for: Acute hypoxemic respiratory failure; Bilateral pneumonia; HIV+ve; PUI COVID-19; Anemia Seen and examined at bedside; 24hour events reviewed; nursing and respiratory care staff consulted; no adverse overnight events reported to me; resting peacefully in bed; still coughing; denies acute chest pains or palpitations; No N/V/F/C Objective Vital Signs - 12hr 12/07/20 12/07/20 12/07/20 03:10 04:37 07:33 Temperature 98.4 F 98.0 F Pulse Rate 98 H 90 Pulse Rate [ 108 H Anterior Bilateral Throughout] Respiratory 18 18 Rate Respiratory 20 Rate [Anterior Bilateral Throughout] Blood Pressure 88/35 107/56 O2 Sat by Pulse 90 95 Oximetry 12/07/20 12/07/20 12/07/20 08:33 08:35 11:17 Temperature 98.3 F Pulse Rate 92 H Pulse Rate [ 93 H Anterior Bilateral Throughout] Respiratory 18 Rate Respiratory 18 Rate [Anterior Bilateral Throughout] Blood Pressure 107/63 O2 Sat by Pulse 96 96 Oximetry 12/07/20 13:30 Temperature Pulse Rate Pulse Rate [ 96 H Anterior Bilateral Throughout] Respiratory Rate Respiratory 20 Rate [Anterior Bilateral Throughout] Blood Pressure O2 Sat by Pulse Oximetry Constitutional: appears uncomfortable Eyes: non-icteric ENT: oropharynx moist Neck: supple, no lymphadenopathy, no JVD Effort: normal Ascultation: Bilateral: rales (R>L) Percussion: Bilateral: not dull Cardiovascular: regular rate and rhythm Gastrointestinal: normoactive bowel sounds, soft, non-tender, non-distended Integumentary: rash (to legs) Extremities: no cyanosis, pulses normal, no ischemia or petechiae, edema (1+) Neurologic: non-focal exam, pupils equal and round, CN II-XII normal, motor strength normal and Psychiatric: mood appropriate, affect normal CBC and BMP: 12/08/20 08:37 12/08/20 08:37 ABG, PT/INR, D-dimer: PT/INR, D-dimer PT 14.4 Sec. (12.2-14.9) 12/07/20 06:25 INR 1.13 (0.87-1.13) 12/07/20 06:25 D-Dimer 636.67 ng/mlDDU (0-234) H 12/06/20 01:50 Abnormal lab findings: Abnormal Labs 12/06/20 12/06/20 12/06/20 01:50 01:50 01:50 WBC 4.4 L Hgb 10.9 L Hct 34.2 L MCV 78 L MCH 25 L RDW 18.0 H Plt Count 494 H Mobile % (Auto) 9.7 H Eos % (Auto) 7.1 H Lymph # (Auto) 1.0 L Seg Neutrophils # INR D-Dimer Sodium 135 L Potassium BUN 8 L Glucose 102 H Calcium 7.7 L ALT 5 L Lactate Dehydrogenase 212 H C-Reactive Protein Albumin 2.8 L 12/06/20 12/06/20 12/06/20 01:50 01:50 01:50 WBC Hgb Hct MCV MCH RDW Plt Count Mobile % (Auto) Eos % (Auto) Lymph # (Auto) Seg Neutrophils # INR 1.16 H D-Dimer 636.67 H Sodium Potassium BUN Glucose 103 H Calcium ALT Lactate Dehydrogenase 222 H C-Reactive Protein 3.90 H Albumin 12/07/20 12/07/20 06:25 06:25 WBC 2.9 L Hgb 9.8 L Hct 30.7 L MCV 79 L MCH 25 L RDW 17.5 H Plt Count 484 H Mobile % (Auto) 14.9 H Eos % (Auto) Lymph # (Auto) 0.8 L Seg Neutrophils # 1.7 L INR D-Dimer Sodium Potassium 3.3 L BUN Glucose 115 H Calcium 7.7 L ALT Lactate Dehydrogenase C-Reactive Protein Albumin Allied health notes reviewed: nursing
[2020-12-07] MEDS ORDERED: MIDODRINE 5 MG TAB PO ONE (20:15)
[2020-12-07] MEDS ORDERED: FUROSEMIDE 40 MG/4 ML INJ IV ONE (20:15)
[2020-12-07] MEDS: guaiFENesin 100 MG/5 ML ORAL LIQD PO PRN (22:00)
[2020-12-07] MEDS: ENOXAPARIN 40 MG/0.4 ML INJ SUB-Q SCH (22:01)
[2020-12-08] MEDS: cefTRIAXone/NS 2 GM/100 ML 2 GM/100 ML BAG IV SCH (01:08)
[2020-12-08] MEDS: IPRATROPIUM/ALBUTEROL SULFATE 3 ML AMPUL.NEB IH SCH ×4 (01:47→21:11)
[2020-12-08] MEDS: BENZONATATE 100 MG CAP PO SCH ×3 (05:24→21:47)
--- NOTE | 2020-12-08 07:33 | Consultation ---
DATE OF CONSULTATION: 12/06/2020 CONSULTING PHYSICIAN: Dr. Vitale, REASON FOR CONSULTATION: Acute respiratory failure, abnormal CT scan. CHIEF COMPLAINT/HISTORY OF PRESENT ILLNESS: The patient is a 35-year-old male with past medical history significant amongst other things for a diagnosis of HIV positive with an unknown CD4, but also with a history of an abnormal CT scan for which he has had bronchoscopy and biopsy in the past, came into the emergency room. According to his notes complained of shortness of breath and difficulty breathing, had been going on for about 2-3 days. He describes dyspnea with exertion. He denied fevers or chills. He denied nausea, vomiting, abdominal pain, diarrhea, or dizziness. He denies any diaphoresis. He did say he tested positive for COVID-19 about a month ago, but has since had negative test since then. In the emergency room, he was hypoxemic, O2 sats 89% on room air. Chest x-rays revealed bilateral pulmonary disease. He was diagnosed with pneumonia, admitted to the hospital. We are asked to assist with management. When I stopped by to see him, he was complaining mostly of cough. He states that he does have periods of relief from the cough, but never more than 1-2 months at most. When he has the coughing spells, mostly nonproductive. He has had episodes of streaky hemoptysis this time around, but then he has had those in the past. He denies any new-onset leg pain or swelling, either unilaterally or bilaterally, but does state he has a history of chronic lower extremity swelling. When I stopped by to see him, he was resting in bed, on supplemental oxygen with mildly increased respiratory effort at rest. Again, he does mention the fact that he has had biopsies done of his lung lesion in the past and was told it was not malignant. This is much of the history of presentation as I have. PAST MEDICAL HISTORY: He is HIV positive. He has a history of some skin lesions that has been evaluated by a dispatcher service chief. He has multiple admissions for pneumonia, February of last year, and he has a history of COVID-19 infection in November of this year. PAST SURGICAL HISTORY: He has had a biopsy in the past, but otherwise he denies any biopsy, a lung biopsy. MEDICATIONS: He was on at the time I stopped by to see him, according to the medication administration record included the following: Tylenol 650 mg p.o. q.4 hours p.r.n. mild pain or fevers, DuoNeb nebulizer treatments nebulized q.6h., Tessalon Perles 100 mg p.o. q. 8 hours scheduled, benzonatate 100 mg capsules, dexamethasone 6 mg IV daily, emtricitabine 200 mg capsule daily, Lovenox 40 mg subQ daily, IV normal saline was given at 75 mL per hour, Rocephin 2 grams IV daily, Zithromax 500 mg IV daily, morphine sulfate 2 mg IV q.4 hours p.r.n. moderate pain, Zofran 4 mg IV q.8 hours p.r.n. nausea and vomiting and tenofovir 300 mg tablet 1 tablet p.o. daily. ALLERGIES: No known drug allergies. DIET: Well-built gentleman. He denies acute weight loss or gain in the preceding few weeks to months. SOCIAL HISTORY: Lives in the community. Denies alcohol, tobacco or illicit drug use or abuse. FAMILY HISTORY: Otherwise, noncontributory. REVIEW OF SYSTEMS: No loss of consciousness. No new onset seizures. No new onset focal weakness. Denies gross hematochezia or melena. Denies gross hematuria or dysuria. He has had intermittent streaky hemoptysis. Denies chest pain, denies palpitations. He denies heat or cold intolerance. Denies polydipsia. Denies polyuria. Denies any new lumps, bumps or swellings on his body. A complete 13 system review of system was obtained. Pertinent positives and negatives as in body of history above, otherwise they are noncontributory. PHYSICAL EXAMINATION: VITAL SIGNS: At presentation, he was afebrile, temperature 98.5 degrees Fahrenheit, pulse of 100, respiratory rate of 18, blood pressure 111/65, O2 sats were 89% on room air. At the time I saw him, O2 sats were 98% on 2 liters nasal cannula. GENERAL: He is a well-built young male. Normocephalic, atraumatic. Talking to me in full sentences, but with mildly increased respiratory effort at rest. HEENT: Anicteric. No conjunctival erythema. Oropharynx was moist. NECK: No gross jugular venous distention, no thyromegaly. Grossly, there were no palpable lymph nodes in the supraclavicular or submandibular lymph node chains. LUNGS: Auscultation of both lung ambriz significant for bibasilar left greater than right rales. No active wheezing. HEART: Sounds 1 and 2 are heard, they were regular in rate and rhythm at the time of my evaluation without overt rubs or murmurs. ABDOMEN: Soft, full. Bowel sounds are positive, nontender. No palpable hepatosplenomegaly. EXTREMITIES: Without overt digital clubbing or cyanosis. He did have 1+ bipedal pitting edema. Pedal pulses were 2+ bilaterally. NEUROLOGIC: Pupils were equal, round, about 4 mm, reactive to light. Extraocular muscle movements were intact. He moves all 4 extremities spontaneously. SKIN: Normal turgor. He did have chronic stasis dermatitis type rash to the lower extremities in particular, however, without overt cellulitis. Please see the wound care nurses' notes for full description of his skin. PSYCHIATRIC: His mood was normal and his affect was appropriate. He had intact judgment and insight, perhaps a little bit anxious. LABORATORY DATA: For my review are as follows: Admission white cell count 4400, hemoglobin 10.9, hematocrit 34.2, platelet count 494. No manual differential. D-dimer was elevated at 637. Serum sodium 135, potassium 4.0, chloride 105, bicarbonate 24, BUN 8, creatinine 0.9, glucose is 103. Ferritin within normal limits. LDH slightly elevated at 222. CRP 3.9. Procalcitonin unremarkable. Liver function tests otherwise within normal limits. Two sets of blood cultures, no growth to date including fungal blood cultures so far. Cryptococcal antigen was sent, is negative. RADIOGRAPHIC STUDIES: Have been reviewed. He has a chest x-ray which really going back to about August of this year, stable, perhaps slightly increased in the right lower lobe region. CT scan was done of his chest. It is a noncontrast CT scan. CT scan of his chest shows extension of bilateral pulmonary infiltrates, new infiltrates in the left lower lobe but extension of the right pulmonary parenchymal infiltrates. It is noncontrast suggestion of pretracheal lymph node and perhaps right greater than left hilar adenopathy. ASSESSMENT: 1. Acute hypoxemic respiratory failure. 2. Bilateral pneumonia, chronic. 3. Human immunodeficiency virus positive. 4. The patient under investigation for COVID-19 infection. 5. Leukopenia. 6. Anemia that is microcytic. PLAN: I have discussed with my colleagues and their office who did the initial bronchoscopy in December 2019. The patient was never seen in followup in the office, especially with a baseline HIV, the fleeting and changing infiltrates in both lung ambriz, I think it is important to go for another bronchoscopy and try and get some tissue certainly sent for pathology and then sent for cultures and sensitivities. Of note, I have recommended in the past that he will be seen by cardiothoracic surgeon to see if they can get more tissue or perhaps go for mediastinal possible lymphadenopathy. In the meantime, I will go ahead and get a CT angiogram of the chest, but mainly to better evaluate the mediastinal architecture. Otherwise, we will continue supplemental oxygen. I do agree with empiric community-acquired pneumonia therapy. This gentleman will probably benefit from evaluation for pulmonary TB. I will follow up with the infectious disease recommendations. I have told him to try and use bronchodilators with his cough to see if it improves his coughing symptoms, see if there is any element of asthma or something at play here, but I do think it is the pulmonary infiltrates that are the issue. He is on DVT prophylaxis. He will be placed on GI prophylaxis. Flu and pneumonia vaccination will be addressed per protocol. The plan will be after ruling out for COVID, to see if he will be interested in getting a repeat bronchoscopy done with tissue either as an inpatient or an outpatient. Thank you very much for the consult. We will follow along and make further recommendations as picture progresses/becomes clearer. TID: [id number] RECEIPT: [id number] OMAR/CATHY [facility]
[2020-12-08 09:30] LABS: BUN/Creatinine Ratio 10; Blood Urea Nitrogen 8 mg/dL (9-20); Hemolysis Index 8
[2020-12-08 09:31] LABS: Hematocrit 34.7 % (35.5-45.6); Hemoglobin 11.2 gm/dl (11.8-15.2); Mean Corpuscular HGB Conc 32 % (32-34); Mean Corpuscular Volume 80 fl (84-94); Platelet Count 519 K/mm3 (140-440); Red Blood Count 4.35 M/mm3 (3.65-5.03); Red Cell Distribution Width 17.9 % (13.2-15.2)
--- NOTE | 2020-12-08 12:15 | Progress Note ---
Assessment and Plan Acute hypoxemic respiratory failure. Bilateral pneumonia, chronic. Human immunodeficiency virus positive. The patient under investigation for COVID-19 infection. Leukopenia. Anemia that is microcytic. - follow AFB smears X 3 - follow CTA chest to evaluate mediastinum better - schedule for bronchoscopy after AFB smears negative - continue care as below otherwise; - continue to wean supplemental oxygen to keep O2 sats > 92% - continue Bronchodilators (JJ) with pulm hygiene per RT - continue to avoid nephrotoxins, renally dose all medications - mobility protocols to prevent pressure ulcers - PT/OT as tolerated - Wound care per RN/WCT - accuchecks with glycemic control per SSI for target blood glucose < 180 mg/dL - tobacco abstinence strongly counseled at the bedside - home oxygen evaluation at discharge - GI & VTE prophylaxis - Flu & pneumovax per protocol - Pulmonary out patient follow up for PFTs and optimization of respiratory status - prn analgesia per pain score - continue other care per attending / other consultants COVID SPECIFIC INTERVENTIONS - Remdesivir as per ID/Pulmonary developed protocols - systemic steroids for severe COVID-19 infection empirically - follow repeat COVID tests results - zinc and vitamin C supplementation - Monitor inflammatory markers per facility protocol - ferritin, Ddimer, CRP - therapeutic anticoagulation per system Protocol based on d-dimer and clinical considerations - Continue contact and airborne isolation ... re-evaluate in am & prn Subjective Date of service: 12/08/20 Principal diagnosis: Ac hypoxemic resp failure; Pneumonia; HIV+ve; PUI COVID-19; Anemia Interval history: Patient is seen today for: Acute hypoxemic respiratory failure; Bilateral pneumonia; HIV+ve; PUI COVID-19; Anemia Seen and examined at bedside; 24hour events reviewed; nursing and respiratory care staff consulted; no adverse overnight events reported to me; resting peacefully in bed; states he is coughing up AFB samples; denies acute chest pain; afebrile and no night sweats; No N/V/F/C Objective Vital Signs - 12hr 12/08/20 12/08/20 12/08/20 01:49 03:26 04:00 Temperature 98.1 F Pulse Rate 84 83 Pulse Rate [ Anterior Bilateral Throughout] Pulse Rate [ 93 H Bilateral] Respiratory 16 Rate Respiratory Rate [Anterior Bilateral Throughout] Respiratory 18 Rate [Bilateral ] Blood Pressure 112/64 [Right] O2 Sat by Pulse 90 93 Oximetry 05/01/21 05/01/21 07:50 07:52 Temperature Pulse Rate Pulse Rate [ 88 Anterior Bilateral Throughout] Pulse Rate [ Bilateral] Respiratory Rate Respiratory 18 Rate [Anterior Bilateral Throughout] Respiratory Rate [Bilateral ] Blood Pressure [Right] O2 Sat by Pulse 97 Oximetry Constitutional: no acute distress Eyes: non-icteric ENT: oropharynx moist Neck: supple, no lymphadenopathy, no JVD Effort: normal Ascultation: Bilateral: rales (R>L) Percussion: Bilateral: not dull Cardiovascular: regular rate and rhythm Gastrointestinal: normoactive bowel sounds, soft, non-tender, non-distended Integumentary: rash (to legs) Extremities: no cyanosis, pulses normal, no ischemia or petechiae, edema (1+) Neurologic: non-focal exam, pupils equal and round, CN II-XII normal, motor strength normal and Psychiatric: mood appropriate, affect normal CBC and BMP: 12/08/20 08:37 12/08/20 08:37 ABG, PT/INR, D-dimer: PT/INR, D-dimer PT 14.4 Sec. (12.2-14.9) 12/07/20 06:25 INR 1.13 (0.87-1.13) 12/07/20 06:25 D-Dimer 636.67 ng/mlDDU (0-234) H 12/06/20 01:50 Abnormal lab findings: Abnormal Labs 12/06/20 12/06/20 12/06/20 01:50 01:50 01:50 WBC 4.4 L Hgb 10.9 L Hct 34.2 L MCV 78 L MCH 25 L RDW 18.0 H Plt Count 494 H [place] % (Auto) 9.7 H Eos % (Auto) 7.1 H Lymph # (Auto) 1.0 L Seg Neutrophils # INR D-Dimer Sodium 135 L Potassium BUN 8 L Glucose 102 H Calcium 7.7 L ALT 5 L Lactate Dehydrogenase 212 H C-Reactive Protein Albumin 2.8 L Syphilis IgG Antibody 12/06/20 12/06/20 12/06/20 01:50 01:50 01:50 WBC Hgb Hct MCV MCH RDW Plt Count [place] % (Auto) Eos % (Auto) Lymph # (Auto) Seg Neutrophils # INR 1.16 H D-Dimer 636.67 H Sodium Potassium BUN Glucose 103 H Calcium ALT Lactate Dehydrogenase 222 H C-Reactive Protein 3.90 H Albumin Syphilis IgG Antibody 12/07/20 12/07/20 12/07/20 06:25 06:25 14:36 WBC 2.9 L Hgb 9.8 L Hct 30.7 L MCV 79 L MCH 25 L RDW 17.5 H Plt Count 484 H [place] % (Auto) 14.9 H Eos % (Auto) Lymph # (Auto) 0.8 L Seg Neutrophils # 1.7 L INR D-Dimer Sodium Potassium 3.3 L BUN Glucose 115 H Calcium 7.7 L ALT Lactate Dehydrogenase C-Reactive Protein Albumin Syphilis IgG Antibody Reactive A 12/08/20 12/08/20 08:37 08:37 WBC 2.9 L Hgb 11.2 L Hct 34.7 L MCV 80 L MCH 26 L RDW 17.9 H Plt Count 519 H [place] % (Auto) Eos % (Auto) Lymph # (Auto) Seg Neutrophils # INR D-Dimer Sodium 135 L Potassium 3.3 L BUN 8 L Glucose Calcium 8.0 L ALT Lactate Dehydrogenase C-Reactive Protein Albumin Syphilis IgG Antibody Allied health notes reviewed: nursing
--- NOTE | 2020-12-08 12:24 | Cat Scan Report ---
CT angio chest INDICATION: Chest Pain; Mediastinal Adenopathy evaluation. TECHNIQUE: All CT scans at this location are performed using CT dose reduction for ALARA by means of automated e xposure control. 3 plane MIP and 3-D reconstructions were produced. COMPARISON: Routine CT chest done yesterday FINDINGS: Diffusely increased soft tissue density in the mediastinum, without specific enlarged nodes. Consider able right lung disease and small right pleural effusion, as described on yesterday's exam. CT angiogram shows no pulmonary emboli or new findings. IMPRESSION: 1. Negative for pulmonary emboli. 2. See yesterday's report regarding extensive right lung disease as well as apparent mediastinal tyler opathy, though discrete nodes are not identified. Signer Name: Arash Eden MD Signed: 12/08/2020 12:19 PM Workstation Name: [id number]
--- NOTE | 2020-12-08 14:47 | Consultation ---
History of Present Illness Consult date: 12/08/20 History of present illness: 35M with PMHx of HIV who is admitted with acute hypoxemic respiratory failure. Patient is currently under investigation for COVID-19; thus, he was not directly examined to limit spread of infection and conserve PPE. Patient presented with cough and shortness of breath. His oxygen sat was reportedly 89%. He has been compliant with antiretroviral regimen. Workup concerning for leukopenia and anemia. CT chest negative for PE but did show bilateral infiltrates and lymphadenopathy, concerning for infection. Troponin x1 negative, BNP 98. Past History Past Medical History: other (HIV positive-on antiretroviral.,PNA in December 2019, PNA in February 2020, Covid-26 November 2020) Past Surgical History: No surgical history Social history: no significant social history Family history: no significant family history Medications and Allergies Allergies Allergy/AdvReac Type Severity Reaction Status Date / Time No Known Allergies Allergy Verified 12/02/19 14:17 Home Medications Medication Instructions Recorded Confirmed Last Taken Type Ipratropium/Albuterol Sulfate 1 ampul IH Q6HR #120 ampul.neb 02/24/20 08/17/20 Unknown Rx [DUONEB *Not for PRN Use*] predniSONE [Deltasone] 20 mg PO QDAY #5 tablet 02/25/20 08/17/20 Unknown Rx Famotidine [Pepcid] 40 mg PO QHS #5 tablet 02/26/20 08/17/20 Unknown Rx diphenhydrAMINE [Benadryl CAP] 50 mg PO Q8HR PRN #14 capsule 02/26/20 08/17/20 Unknown Rx Dexamethasone [Taperdex] 1.5 mg PO DAILY 7 Days #1 tab.ds.pk 03/14/20 08/17/20 Unknown Rx Promethazine HCl [Promethazine TAB] 12.5 mg PO [id number] PRN #12 tab 05/09/20 08/17/20 Unknown Rx Atovaquone [Mepron] 750 mg PO BID 25 Days ml 08/19/20 Unknown Rx Cefdinir 300 mg PO BID #10 capsule 08/19/20 Unknown Rx Dolutegravir [Tivicay] 50 mg PO QDAY #30 tablet 08/19/20 Unknown Rx Emtricitabine [Emtriva] 200 mg PO QDAY #30 capsule 01/10/21 Unknown Rx Famotidine [Pepcid] 20 mg PO BID #60 tablet 08/19/20 Unknown Rx Tenofovir [Viread] 300 mg PO QDAY #30 tablet 08/19/20 Unknown Rx Albuterol Sulfate [Proventil Hfa] 6.7 gm IH QID #1 hfa.aer.ad 11/26/20 Unknown Rx Benzonatate [Tessalon Perles] 100 mg PO Q8HR #20 capsule 11/26/20 Unknown Rx Sulfamethoxazole/Trimethoprim 1 each PO BID 10 Days #20 tablet 11/26/20 Unknown Rx [Bactrim DS TAB] Active Meds: Active Medications Acetaminophen (Acetaminophen 325 Mg Tab) 650 mg PO Q4H PRN PRN Reason: Pain MILD(1-3)/Fever >100.5/LIU Last Admin: 12/07/20 22:00 Dose: 650 mg Documented by: Albuterol/Ipratropium (Ipratropium/Albuterol Sulfate 3 Ml Ampul.Neb) 1 ampul IH Q6HRT [facility] Last Admin: 12/08/20 14:16 Dose: 1 ampul Documented by: Benzonatate (Benzonatate 100 Mg Cap) 100 mg PO Q8HR [facility] Last Admin: 12/08/20 05:24 Dose: 100 mg Documented by: Emtricitabine (Emtricitabine 200 Mg Cap) 200 mg PO QDAY [facility] Last Admin: 12/07/20 09:58 Dose: 200 mg Documented by: Enoxaparin Sodium (Enoxaparin 40 Mg/0.4 Ml Inj) 40 mg SUB-Q QDAY@2200 [facility]; Protocol Last Admin: 12/07/20 22:01 Dose: 40 mg Documented by: Guaifenesin (Guaifenesin 100 Mg/5 Ml Oral Liqd) 200 mg PO Q4H PRN PRN Reason: Cough Last Admin: 12/07/20 22:00 Dose: 200 mg Documented by: Ceftriaxone Sodium (Rocephin/Ns 2 Gm/100 Ml) 2 gm in 100 mls @ 200 mls/hr IV Q24H [facility]; Protocol Last Admin: 12/08/20 01:08 Dose: 200 mls/hr Documented by: Morphine Sulfate (Morphine 2 Mg/1 Ml Inj) 2 mg IV Q4H PRN PRN Reason: Pain, Moderate (4-6) Ondansetron HCl (Ondansetron 4 Mg/2 Ml Inj) 4 mg IV Q8H PRN PRN Reason: Nausea And Vomiting Sodium Chloride (Sodium Chloride 0.9% 10 Ml Flush Syringe) 10 ml IV BID [facility] Last Admin: 12/07/20 22:01 Dose: 10 ml Documented by: Sodium Chloride (Sodium Chloride 0.9% 10 Ml Flush Syringe) 10 ml IV PRN PRN PRN Reason: LINE FLUSH Tenofovir Disoproxil Fumarate (Tenofovir 300 Mg Tab) 300 mg PO QDAY [facility] Last Admin: 12/07/20 09:58 Dose: 300 mg Documented by: Physical Examination Vital Signs Temp Pulse Resp BP Pulse Ox 98.5 F 100 H 18 111/65 89 12/06/20 00:35 12/06/20 00:35 12/06/20 00:35 12/06/20 00:35 12/06/20 00:35 Exam deferred due to COVID PUI. Results 12/08/20 08:37 12/08/20 08:37 CBC 12/08/20 Range/Units 08:37 WBC 2.9 L (4.5-11.0) K/mm3 RBC 4.35 (3.65-5.03) M/mm3 Hgb 11.2 L (11.8-15.2) gm/dl Hct 34.7 L (35.5-45.6) % Plt Count 519 H (140-440) K/mm3 Comprehensive Metabolic Panel 12/08/20 Range/Units 08:37 Sodium 135 L (137-145) mmol/L Potassium 3.3 L (3.6-5.0) mmol/L Chloride 102.6 (98-107) mmol/L Carbon Dioxide 23 (22-30) mmol/L BUN 8 L (9-20) mg/dL Creatinine 0.8 (0.8-1.3) mg/dL Glucose 93 (75-100) mg/dL Calcium 8.0 L (8.4-10.2) mg/dL Tele - reviewed, SR, no events EKG - reviewed, sinus rhythm Assessment and Plan #Dyspnea and acute hypoxemic respiratory failure #Bilateral pneumonia #Leukopenia #Anemia -Will await echo to evaluate cardiac function. -Continue telemetry monitoring. -Continue supportive care and evaluation for infection.
[2020-12-08] MEDS: EMTRICITABINE 200 MG CAP PO SCH (16:47)
[2020-12-08] MEDS: TENOFOVIR 300 MG TAB PO SCH (16:47)
[2020-12-08] MEDS: DOLUTEGRAVIR 50 MG TAB PO SCH (16:48)
[2020-12-08] MEDS: ENOXAPARIN 40 MG/0.4 ML INJ SUB-Q SCH (21:47)
[2020-12-09] MEDS: cefTRIAXone/NS 2 GM/100 ML 2 GM/100 ML BAG IV SCH (02:07)
[2020-12-09] MEDS: IPRATROPIUM/ALBUTEROL SULFATE 3 ML AMPUL.NEB IH SCH ×4 (02:21→21:19)
[2020-12-09] MEDS: BENZONATATE 100 MG CAP PO SCH ×3 (05:23→22:33)
--- NOTE | 2020-12-09 08:41 | Progress Note ---
Assessment and Plan (1) Bilateral pneumonia Current Visit: Yes Status: Acute Plan to address problem: Waiting for bronchoscopy (2) HIV antibody positive Current Visit: No Status: Acute Plan to address problem: CD4 count pending On Biktarvy (3) Hypoxia Current Visit: No Status: Acute Plan to address problem: Improved (4) Suspected COVID-19 virus infection Coronavirus PCR negative (5) known history of perihilar mass Getting bronchoscopy (6) DVT prophylaxis Current Visit: No Status: Acute Plan to address problem: Patient placed on subcutaneous Lovenox. (7) Full code status Current Visit: Yes Status: Acute Plan to address problem: Patient is a full code. Subjective Date of service: 12/08/20 Principal diagnosis: Bilateral pneumonia Interval history: Assessment and Plan Assessment and plan: 35-year-old male with known history of HIV with unknown CD4 count presenting to the emergency room today complaining of shortness of breath and difficulty breathing. Symptoms were said to have been ongoing for the past 2 to 3 days. Shortness of breath is worse on exertion. He denies any fever or chills, no ch est pain, no nausea vomiting, no abdominal pain, no diarrhea, no headache or dizziness, no diaphoresis. Patient states that he tested positive for COVID-19 about a month ago but later tested negative about 2 weeks later. Upon arrival in the emergency room patient had an oxygen saturation of about 89% on room air. Work-up in the emergency room today chest x-ray reveals: Bilateral parenchymal disease,right greater than left. Mild disease in the left upper lobe has improved. She has been admitted with bilateral pneumonia with hypoxia. Will also rule out COVID-19. 12/06:Patient seen and examined today resting comfortably although still with shortness of breath on supine position reports cough. Previous imaging study did reveal mass in the hilum area previous documentation by pulmonary shows that patient had a bronchoscopy in 2019 that showed negative cytology and only fungal entities noted. Will obtain an echocardiogram as none has been obtained in this patient with recurrent shortness of breath and hypoxic respiratory failure with underlying cough in supine position. Will await ID input and also will consult pulmonary. Continue current oxygen management 12/07: Patient underwent follow-up testing today including recommendations by ID as noted below. Otherwise we will continue current management with antibiotics. It appears a fungal culture. ID was canceled but BAL done at that time grew normal shari. Will follow culture results at this time. Pulmonary input is a ppreciated. Anticipate discharge when symptomatic improvement is noted Covid test result is still pending. Cryptococcal antigen ordered -CT chest, abdomen and pelvis with IV contrast ordered -Fungal blood culture ordered -Aspergillus galactomannan ordered -Histoplasma Ur Ag, blasto Ur Ag ordered -Cocci Ab ordered -update viral load and CD4 count Objective - Constitutional Vitals: Vital Signs - 12hr 12/08/20 12/08/20 12/08/20 21:11 21:13 22:00 Temperature Pulse Rate Pulse Rate [ 89 Anterior Bilateral Throughout] Pulse Rate [ 96 H From Monitor] Respiratory Rate Respiratory 20 Rate [Anterior Bilateral Throughout] Blood Pressure O2 Sat by Pulse 98 96 Oximetry 12/08/20 12/09/20 23:33 06:03 Temperature 98.8 F 97.6 F Pulse Rate 104 H 83 Pulse Rate [ Anterior Bilateral Throughout] Pulse Rate [ From Monitor] Respiratory 22 24 Rate Respiratory Rate [Anterior Bilateral Throughout] Blood Pressure 114/72 97/59 O2 Sat by Pulse 94 96 Oximetry General appearance: Present: no acute distress, well-nourished - EENT Eyes: PERRL, EOM intact ENT: hearing intact, clear oral mucosa Ears: bilateral: normal - Neck Neck: supple, normal ROM - Respiratory Respiratory effort: normal Respiratory: bilateral: CTA - Breasts Breasts: normal - Cardiovascular Heart rate: 78 Rhythm: regular Heart Sounds: Present: S1 & S2. Absent: gallop, rub Extremities: pulses intact, No edema, normal color, Full ROM - Gastrointestinal General gastrointestinal: Present: soft, non-tender, non-distended, normal bowel sounds - Genitourinary Male genitourinary: normal - Integumentary Integumentary: clear, warm, dry - Musculoskeletal Musculoskeletal: 1, strength equal bilaterally - Neurologic Neurologic: moves all extremities - Psychiatric Psychiatric: memory intact, appropriate mood/affect, intact judgment & insight - Labs CBC & Chem 7: 12/08/20 08:37 12/08/20 08:37 Labs: Abnormal lab results 12/08/20 12/08/20 Range/Units 08:37 08:37 WBC 2.9 L (4.5-11.0) K/mm3 Hgb 11.2 L (11.8-15.2) gm/dl Hct 34.7 L (35.5-45.6) % MCV 80 L (84-94) fl MCH 26 L (28-32) pg RDW 17.9 H (13.2-15.2) % Plt Count 519 H (140-440) K/mm3 Sodium 135 L (137-145) mmol/L Potassium 3.3 L (3.6-5.0) mmol/L BUN 8 L (9-20) mg/dL Calcium 8.0 L (8.4-10.2) mg/dL HEART Score - HEART Score Troponin: Troponin T < 0.010 ng/mL (0.00-0.029) 12/06/20 01:50
[2020-12-09] MEDS: TENOFOVIR 300 MG TAB PO SCH (10:18)
[2020-12-09] MEDS: DOLUTEGRAVIR 50 MG TAB PO SCH (10:18)
[2020-12-09] MEDS: EMTRICITABINE 200 MG CAP PO SCH (10:18)
--- NOTE | 2020-12-09 13:48 | Progress Note ---
Assessment and Plan (1) Bilateral pneumonia Current Visit: Yes Status: Acute Plan to address problem: Patient placed on empiric IV antibiotics. We will await blood culture results. (2) HIV antibody positive Current Visit: No Status: Acute Plan to address problem: Unknown foot CD4 counts. Patient states he is on antiretroviral agent. We will continue on other routine home medications including Bactrim. (3) Hypoxia Current Visit: No Status: Acute Plan to address problem: Secondary to the pneumonia. We will place on oxygen and keep O2 saturation greater or equal to 94%. (4) Suspected COVID-19 virus infection Current Visit: Yes Status: Acute Plan to address problem: Patient placed on isolation precautions. We await COVID-19 testing. Meanwhile placed on IV steroid. Consult placed to infectious disease for evaluation. (5) known history of perihilar mass (6) DVT prophylaxis Current Visit: No Status: Acute Plan to address problem: Patient placed on subcutaneous Lovenox. (7) Full code status Current Visit: Yes Status: Acute Plan to address problem: Patient is a full code. Subjective Date of service: 12/09/20 Principal diagnosis: Bilateral pneumonia Interval history: Assessment and Plan Assessment and plan: 35-year-old male with known history of HIV with unknown CD4 count presenting to the emergency room today complaining of shortness of breath and difficulty breathing. Symptoms were said to have been ongoing for the past 2 to 3 days. Shortness of breath is worse on exertion. He denies any fever or chills, no chest pain, no nausea vomiting, no abdominal pain, no diarrhea, no headache or dizziness, no diaphoresis. Patient states that he tested positive for COVID-19 about a month ago but later tested negative about 2 weeks later. Upon arrival in the emergency room patient had an oxygen saturation of about 89% on room air. Work-up in the emergency room today chest x-ray reveals: Bilateral parenchymal disease,right greater than left. Mild disease in the left upper lobe has improved. She has been admitted with bilateral pneumonia with hypoxia. Will also rule out COVID-19. 12/06:Patient seen and examined today resting comfortably although still with shortness of breath on supine position reports cough. Previous imaging study did reveal mass in the hilum area previous documentation by pulmonary shows that patient had a bronchoscopy in 2019 that showed negative cytology and only fungal entities noted. Will obtain an echocardiogram as none has been obtained in this patient with recurrent shortness of breath and hypoxic respiratory failure with underlying cough in supine position. Will await ID input and also will consult pulmonary. Continue current oxygen management 12/07: Patient underwent follow-up testing today including recommendations by ID as noted below. Otherwise we will continue current management with antibiotics. It appears a fungal culture. ID was canceled but BAL done at that time grew normal shari. Will follow culture results at this time. Pulmonary input is appreciated. Anticipate discharge when symptomatic improvement is noted Covid test result is still pending. Cryptococcal antigen ordered -CT chest, abdomen and pelvis with IV contrast ordered -Fungal blood culture ordered -Aspergillus galactomannan ordered -Histoplasma Ur Ag, blasto Ur Ag ordered -Cocci Ab ordered -update viral load and CD4 count Objective - Constitutional Vitals: Vital Signs - 12hr 12/09/20 12/09/20 06:03 10:00 Temperature 97.6 F Pulse Rate 83 Pulse Rate [ 96 H From Monitor] Respiratory 24 20 Rate Blood Pressure 97/59 O2 Sat by Pulse 96 96 Oximetry General appearance: Present: no acute distress, well-nourished - EENT Eyes: PERRL, EOM intact ENT: hearing intact, clear oral mucosa Ears: bilateral: normal - Neck Neck: supple, normal ROM - Respiratory Respiratory effort: normal Respiratory: bilateral: CTA - Breasts Breasts: normal - Cardiovascular Heart rate: 78 Rhythm: regular Heart Sounds: Present: S1 & S2. Absent: gallop, rub Extremities: pulses intact, No edema, normal color, Full ROM - Gastrointestinal General gastrointestinal: Present: soft, non-tender, non-distended, normal bowel sounds - Genitourinary Male genitourinary: normal - Integumentary Integumentary: clear, warm, dry - Musculoskeletal Musculoskeletal: 1, strength equal bilaterally - Neurologic Neurologic: moves all extremities - Psychiatric Psychiatric: memory intact, appropriate mood/affect, intact judgment & insight - Labs CBC & Chem 7: 12/08/20 08:37 12/08/20 08:37 HEART Score - HEART Score Troponin: Troponin T < 0.010 ng/mL (0.00-0.029) 12/06/20 01:50
[2020-12-09] MEDS: guaiFENesin 100 MG/5 ML ORAL LIQD PO PRN (17:58)
--- NOTE | 2020-12-09 18:20 | Progress Note ---
Assessment and Plan Acute hypoxemic respiratory failure. Bilateral pneumonia, chronic. Human immunodeficiency virus positive. The patient under investigation for COVID-19 infection. Leukopenia. Anemia that is microcytic. - bilateral lower extremity dopplers to complete VTE w/up - follow AFB smears X 3 - schedule for bronchoscopy after AFB smears negative - continue care as below otherwise; - continue to wean supplemental oxygen to keep O2 sats > 92% - continue Bronchodilators (JJ) with pulm hygiene per RT - continue to avoid nephrotoxins, renally dose all medications - mobility protocols to prevent pressure ulcers - PT/OT as tolerated - Wound care per RN/WCT - accuchecks with glycemic control per SSI for target blood glucose < 180 mg/dL - tobacco abstinence strongly counseled at the bedside - home oxygen evaluation at discharge - GI & VTE prophylaxis - Flu & pneumovax per protocol - Pulmonary out patient follow up for PFTs and optimization of respiratory status - prn analgesia per pain score - continue other care per attending / other consultants COVID SPECIFIC INTERVENTIONS - Remdesivir as per ID/Pulmonary developed protocols - systemic steroids for severe COVID-19 infection empirically - follow repeat COVID tests results - zinc and vitamin C supplementation - Monitor inflammatory markers per facility protocol - ferritin, Ddimer, CRP - therapeutic anticoagulation per system Protocol based on d-dimer and clinical considerations - Continue contact and airborne isolation ... re-evaluate in am & prn Subjective Date of service: 12/09/20 Principal diagnosis: Ac hypoxemic resp failure; Pneumonia; HIV+ve; PUI COVID-19; Anemia Interval history: Patient is seen today for: Acute hypoxemic respiratory failure; Bilateral pneumonia; HIV+ve; PUI COVID-19; Anemia Seen and examined at bedside; 24hour events reviewed; nursing and respiratory care staff consulted; no adverse overnight events reported to me; resting peacefully in bed; CTA negative for VTE (poor contrast phase timing); Objective Vital Signs - 12hr 12/09/20 12/09/20 12/09/20 08:25 08:35 10:00 Pulse Rate [ 92 H Anterior Bilateral Throughout] Pulse Rate [ 94 H Bilateral] Pulse Rate [ 96 H From Monitor] Respiratory 20 Rate Respiratory 18 Rate [Anterior Bilateral Throughout] Respiratory 18 Rate [Bilateral ] O2 Sat by Pulse 95 96 Oximetry Constitutional: no acute distress Eyes: non-icteric ENT: oropharynx moist Neck: supple, no lymphadenopathy, no JVD Effort: normal Ascultation: Bilateral: rales (R>L) Percussion: Bilateral: not dull Cardiovascular: regular rate and rhythm Gastrointestinal: normoactive bowel sounds, soft, non-tender, non-distended Integumentary: rash (to legs) Extremities: no cyanosis, pulses normal, no ischemia or petechiae, edema (1+) Neurologic: non-focal exam, pupils equal and round, CN II-XII normal, motor strength normal and Psychiatric: mood appropriate, affect normal CBC and BMP: 12/08/20 08:37 12/08/20 08:37 ABG, PT/INR, D-dimer: PT/INR, D-dimer PT 14.4 Sec. (12.2-14.9) 12/07/20 06:25 INR 1.13 (0.87-1.13) 12/07/20 06:25 D-Dimer 636.67 ng/mlDDU (0-234) H 12/06/20 01:50 Abnormal lab findings: Abnormal Labs 12/06/20 12/06/20 12/06/20 01:50 01:50 01:50 WBC 4.4 L Hgb 10.9 L Hct 34.2 L MCV 78 L MCH 25 L RDW 18.0 H Plt Count 494 H [place] % (Auto) 9.7 H Eos % (Auto) 7.1 H Lymph # (Auto) 1.0 L Seg Neutrophils # INR D-Dimer Sodium 135 L Potassium BUN 8 L Glucose 102 H Calcium 7.7 L ALT 5 L Lactate Dehydrogenase 212 H C-Reactive Protein Albumin 2.8 L Syphilis IgG Antibody 12/06/20 12/06/20 12/06/20 01:50 01:50 01:50 WBC Hgb Hct MCV MCH RDW Plt Count [place] % (Auto) Eos % (Auto) Lymph # (Auto) Seg Neutrophils # INR 1.16 H D-Dimer 636.67 H Sodium Potassium BUN Glucose 103 H Calcium ALT Lactate Dehydrogenase 222 H C-Reactive Protein 3.90 H Albumin Syphilis IgG Antibody 12/07/20 12/07/20 12/07/20 06:25 06:25 14:36 WBC 2.9 L Hgb 9.8 L Hct 30.7 L MCV 79 L MCH 25 L RDW 17.5 H Plt Count 484 H [place] % (Auto) 14.9 H Eos % (Auto) Lymph # (Auto) 0.8 L Seg Neutrophils # 1.7 L INR D-Dimer Sodium Potassium 3.3 L BUN Glucose 115 H Calcium 7.7 L ALT Lactate Dehydrogenase C-Reactive Protein Albumin Syphilis IgG Antibody Reactive A 12/08/20 12/08/20 08:37 08:37 WBC 2.9 L Hgb 11.2 L Hct 34.7 L MCV 80 L MCH 26 L RDW 17.9 H Plt Count 519 H [place] % (Auto) Eos % (Auto) Lymph # (Auto) Seg Neutrophils # INR D-Dimer Sodium 135 L Potassium 3.3 L BUN 8 L Glucose Calcium 8.0 L ALT Lactate Dehydrogenase C-Reactive Protein Albumin Syphilis IgG Antibody Allied health notes reviewed: nursing
--- NOTE | 2020-12-09 19:32 | Progress Note ---
Assessment and Plan #Dyspnea and acute hypoxemic respiratory failure #Bilateral pneumonia #HIV #Leukopenia #Anemia -Echo read pending. -Continue telemetry monitoring. -Continue supportive care and evaluation for infection. Subjective Date of service: 12/09/20 Principal diagnosis: Ac hypoxemic resp failure; Pneumonia; HIV+ve; PUI COVID-19; Anemia Interval history: Patient is currently under COVID-19 rule out status; thus, he was not seen in person to preserve PPE and limit spread of infection. No cardiac events. Objective Vital Signs Temp Pulse Pulse Pulse Pulse Resp Resp 12/09/20 15:53 98.1 F 83 16 12/09/20 12:20 97.9 F 74 16 12/09/20 10:00 96 H 20 12/09/20 08:35 12/09/20 08:25 92 H 94 H 18 12/09/20 06:03 97.6 F 83 24 12/08/20 23:33 98.8 F 104 H 22 12/08/20 22:00 96 H 12/08/20 21:13 12/08/20 21:11 89 20 Resp BP Pulse Ox 12/09/20 15:53 104/79 98 12/09/20 12:20 96 12/09/20 10:00 96 12/09/20 08:35 95 12/09/20 08:25 18 12/09/20 06:03 97/59 96 12/08/20 23:33 114/72 94 12/08/20 22:00 96 12/08/20 21:13 98 12/08/20 21:11 - Physical Examination Narrative exam: Exam deferred. - Allied health notes Allied health notes reviewed: nursing
[2020-12-09 21:10] LABS: HIV-1 RNA QN PCR 1.71 Log cps/mL
[2020-12-09] MEDS: ENOXAPARIN 40 MG/0.4 ML INJ SUB-Q SCH (22:33)
[2020-12-10] MEDS: cefTRIAXone/NS 2 GM/100 ML 2 GM/100 ML BAG IV SCH (02:35)
[2020-12-10] MEDS: BENZONATATE 100 MG CAP PO SCH ×3 (05:28→21:40)
[2020-12-10] MEDS: IPRATROPIUM/ALBUTEROL SULFATE 3 ML AMPUL.NEB IH SCH ×3 (08:51→21:11)
[2020-12-10] MEDS: DOLUTEGRAVIR 50 MG TAB PO SCH (09:10)
[2020-12-10] MEDS: EMTRICITABINE 200 MG CAP PO SCH (09:10)
[2020-12-10] MEDS: TENOFOVIR 300 MG TAB PO SCH (09:10)
--- NOTE | 2020-12-10 13:02 | Progress Note ---
Assessment and Plan - Patient Problems (1) Acute respiratory failure Current Visit: Yes Status: Acute Plan to address problem: Patient admitted with respiratory insufficiency and acute right lower lobe pneumonia. No acute cardiac issues, left ventricular ejection fraction is well- preserved on echocardiogram. No further cardiac intervention is indicated, will follow intermittently. Subjective Date of service: 12/10/20 Principal diagnosis: Ac hypoxemic resp failure; Pneumonia; HIV+ve; PUI COVID-19; Anemia Interval history: Patient presented with shortness of breath and respiratory insufficiency. Chest x-ray shows a right lower lobe consolidated infiltrate, consistent with pneumonia. Comorbidities include HIV disease. Cardiology consultation was requested for "HIV cardiomyopathy". But patient denies any prior cardiac history, no history of cardiomyopathy or heart failure. Echocardiogram done on this presentation showed well-preserved ejection fraction 50 to 55%. Today, he is sitting up in his bed, comfortable in no acute distress. Objective Vital Signs Temp Pulse Pulse Pulse Resp Resp BP 12/10/20 08:51 82 20 12/10/20 05:49 97.5 F L 75 22 99/67 12/09/20 22:36 97.5 F L 82 20 107/68 12/09/20 21:17 12/09/20 21:13 98 H 12/09/20 15:53 98.1 F 83 16 104/79 Pulse Ox 12/10/20 08:51 94 12/10/20 05:49 96 12/09/20 22:36 95 12/09/20 21:17 97 12/09/20 21:13 96 12/09/20 15:53 98 - Physical Examination General: Appears Well, No Apparent Distress HEENT: Positive: PERRL Neck: Positive: neck supple Cardiac: Positive: Reg Rate and Rhythm Lungs: Positive: Decreased Breath Sounds Neuro: Positive: Grossly Intact Abdomen: Positive: Soft Skin: Positive: Clear Extremities: Absent: edema - Allied health notes Allied health notes reviewed: nursing
--- NOTE | 2020-12-10 13:44 | Progress Note ---
Assessment and Plan Cultures: Previous chart and cultures reviewed. 12/06/2020 blood culture: no growth 12/06/2020 serum cryptococcal antigen: Negative 12/06/2020 fungal blood culture: In process 12/07/2020 sputum culture: Oral contamination Syphilis IgG positive, 12/07/2020 RPR titer: 1:2 12/06/2020 HIV RNA PCR: 51 A/P: 35-year-old male with HIV, recent admission in October 2020 with COVID-19 was admitted to the hospital with complaints of cough and shortness of breath: #Bilateral pneumonia, worse on right compared to left. This is chronic and has been present since 2019. Underwent a bronchoscopy by Dr. Ardon in October 2019. BAL culture grew usual respiratory shari, it seems fungal culture got canceled. Fungal stain was positive for hyphae and spores, negative for PJP. His CT scan in August 2020 showed a persistent masslike consolidation in the right hilar region. Repeat CT showed right hilar mass with infiltrates and mediastinal lymphadenopathy. #Splenic hypodensities noted on previous CT scan. Splenic lesions appear improved on CT scan. Also seen was inguinal and retroperitoneal lymphadenopathy. #HIV: Compliant with Biktarvy. Viral load remains low, pending CD4 count. #Bilateral lower extremity purplish lesions: These were biopsied by dermatology outpatient, patient did not follow-up to get the results. 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 Treat with benzathine penicillin weekly x3 #Leukopenia, reactive thrombocytosis Recs: -awaiting bronchoscopy with possible transbronchial biopsy for histopath + for fungal, AFB cultures. Also recommend BAL for fungal and AFB cultures -f/u AFB, fungal blood cultures, Aspergillus galactomannan, histoplasma and blasto urinary antigens -Continue Biktarvy, therapeutic interchange to TDF, emtricitabine, dolutegravir as per hospital formulary -ceftriaxone stopped -f/u outside derm biopsy results -f/u CD4 count León Velásquez MD, FACP [facility] O: [phone] F: [phone] Subjective Date of service: 12/10/20 Principal diagnosis: Ac hypoxemic resp failure; Pneumonia; HIV+ve; PUI COVID-19; Anemia Interval history: No fever. No new complaints. Objective - Exam Narrative Exam: Physical Exam: Constitutional: Alert, cooperative. No acute distress Head, Ears, Nose: Normocephalic, atraumatic. External ears, nose normal Eyes: Conjunctivae/corneas clear. No icterus. No ptosis. Neck: Supple, no meningeal signs Cardiovascular: S1, S2 normal. Respiratory: b/l crackles + GI: Soft, non-tender; bowel sounds normal. No peritoneal signs Musculoskeletal: No pedal edema, no cyanosis. Skin: b/L LE with purplish lesions Hem/Lymphatic: No palpable cervical or supraclavicular nodes. No lymphangitis Psych: Mood ok. Affect normal Neurological: Awake, alert, oriented. No gross abnormality - Constitutional Vitals: Vital Signs Temp Pulse Resp BP Pulse Ox 97.6 F 71 18 115/82 96 12/10/20 12:00 12/10/20 12:00 12/10/20 12:00 12/10/20 12:00 12/10/20 12:00 Temperature -Last 24 Hours Temperature 97.6 F Temperature 97.5 F Temperature 97.5 F Temperature 98.1 F - Labs CBC & Chem 7: 12/08/20 08:37 12/08/20 08:37 Labs: Abnormal lab results 12/06/20 Range/Units 15:54 HIV-1 RNA PCR copies/ml 51 H Copies/mL HIV-1 RNA (PCR) log 1.71 H Log cps/mL
--- NOTE | 2020-12-10 13:46 | Progress Note ---
Assessment and Plan 35-year-old male with known history of HIV with unknown CD4 count presented to the emergency room complaining of shortness of breath and difficulty breathing of 2-3 day duration. Patient chest x-ray showed bilateral pneumonia. Patient admitted for pneumonia. Patient alert and awake. Resting on 2L O2. O2 saturation 96%. Complaining of co ugh. No acute respiratory distress. Patient has no history of smoking, alcohol, or drug use. 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 No known drug allergies. Patient afebrile and has leukopenia. WBC count 2.9. Chest X-ray done on 12/06/20. Chest x-ray showed bilateral parenchymal disease, much greater on the right than the left, is again identified. Mild disease in the left upper lobe has improved. Patient presently on penicillin-G, albuterol/ipratropium, lovanox, benzonatate. Oropharyngeal cultures inconclusive. - Patient Problems (1) Acute respiratory failure Current Visit: Yes Status: Acute Plan to address problem: Patient on 2L O2. O2 saturation 96%. Albuterol/Ipratropium aerosol treatments. Continue s/c lovanox. (2) Bilateral pneumonia Current Visit: Yes Status: Acute Plan to address problem: Patient is on penicillin-G. (3) Suspected COVID-19 virus infection Current Visit: Yes Status: Acute Plan to address problem: Negative COVID-19 serology. (4) HIV antibody positive Current Visit: No Status: Acute Plan to address problem: Management per ID. Subjective Date of service: 12/10/20 Principal diagnosis: Ac hypoxemic resp failure; Pneumonia; HIV+ve; PUI COVID-19; Anemia Interval history: 35-year-old male with known history of HIV with unknown CD4 count presented to the emergency room complaining of shortness of breath and difficulty breathing of 2-3 day duration. Patient chest x-ray showed bilateral pneumonia. Patient admitted for pneumonia. Patient alert and awake. Resting on 2L O2. O2 saturation 96%. Complaining of cough. No acute respiratory distress. Patient has no history of smoking, alcohol, or drug use. 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 No known drug allergies. Patient afebrile and has leukopenia. WBC count 2.9. Chest X-ray done on 12/06/20. Chest x-ray showed bilateral parenchymal disease, much greater on the right than the left, is again identified. Mild disease in the left upper lobe has improved. Patient presently on penicillin-G, albuterol/ipratropium, lovanox, benzonatate. Oropharyngeal cultures inconclusive. Objective Vital Signs - 12hr 12/10/20 12/10/20 12/10/20 05:49 08:51 12:00 Temperature 97.5 F L 97.6 F Pulse Rate 75 71 Pulse Rate [ 82 Anterior Bilateral Throughout] Respiratory 22 18 Rate Respiratory 20 Rate [Anterior Bilateral Throughout] Blood Pressure 99/67 Blood Pressure 115/82 [Right] O2 Sat by Pulse 96 94 96 Oximetry Constitutional: no acute distress, alert, other (appears weak) Eyes: non-icteric ENT: oropharynx moist Neck: supple, no lymphadenopathy, no JVD Effort: normal Ascultation: Bilateral: rales (R>L), rhonchi Percussion: Bilateral: not dull Cardiovascular: regular rate and rhythm Gastrointestinal: normoactive bowel sounds, soft, non-tender, non-distended Integumentary: rash (to legs) Extremities: no cyanosis, pulses normal, no ischemia or petechiae, edema (1+) Neurologic: non-focal exam, pupils equal and round, CN II-XII normal, motor strength normal and Psychiatric: mood appropriate CBC and BMP: 12/08/20 08:37 12/08/20 08:37 ABG, PT/INR, D-dimer: PT/INR, D-dimer PT 14.4 Sec. (12.2-14.9) 12/07/20 06:25 INR 1.13 (0.87-1.13) 12/07/20 06:25 D-Dimer 636.67 ng/mlDDU (0-234) H 12/06/20 01:50 Abnormal lab findings: Abnormal Labs 12/06/20 12/06/20 12/06/20 01:50 01:50 01:50 WBC 4.4 L Hgb 10.9 L Hct 34.2 L MCV 78 L MCH 25 L RDW 18.0 H Plt Count 494 H [place] % (Auto) 9.7 H Eos % (Auto) 7.1 H Lymph # (Auto) 1.0 L Seg Neutrophils # INR D-Dimer Sodium 135 L Potassium BUN 8 L Glucose 102 H Calcium 7.7 L ALT 5 L Lactate Dehydrogenase 212 H C-Reactive Protein Albumin 2.8 L Syphilis IgG Antibody HIV-1 RNA PCR copies/ml HIV-1 RNA (PCR) log 12/06/20 12/06/20 12/06/20 01:50 01:50 01:50 WBC Hgb Hct MCV MCH RDW Plt Count [place] % (Auto) Eos % (Auto) Lymph # (Auto) Seg Neutrophils # INR 1.16 H D-Dimer 636.67 H Sodium Potassium BUN Glucose 103 H Calcium ALT Lactate Dehydrogenase 222 H C-Reactive Protein 3.90 H Albumin Syphilis IgG Antibody HIV-1 RNA PCR copies/ml HIV-1 RNA (PCR) log 12/06/20 12/07/20 12/07/20 15:54 06:25 06:25 WBC 2.9 L Hgb 9.8 L Hct 30.7 L MCV 79 L MCH 25 L RDW 17.5 H Plt Count 484 H [place] % (Auto) 14.9 H Eos % (Auto) Lymph # (Auto) 0.8 L Seg Neutrophils # 1.7 L INR D-Dimer Sodium Potassium 3.3 L BUN Glucose 115 H Calcium 7.7 L ALT Lactate Dehydrogenase C-Reactive Protein Albumin Syphilis IgG Antibody HIV-1 RNA PCR copies/ml 51 H HIV-1 RNA (PCR) log 1.71 H 12/07/20 12/08/20 12/08/20 14:36 08:37 08:37 WBC 2.9 L Hgb 11.2 L Hct 34.7 L MCV 80 L MCH 26 L RDW 17.9 H Plt Count 519 H [place] % (Auto) Eos % (Auto) Lymph # (Auto) Seg Neutrophils # INR D-Dimer Sodium 135 L Potassium 3.3 L BUN 8 L Glucose Calcium 8.0 L ALT Lactate Dehydrogenase C-Reactive Protein Albumin Syphilis IgG Antibody Reactive A HIV-1 RNA PCR copies/ml HIV-1 RNA (PCR) log Chest x-ray: report reviewed, image reviewed Additional Studies: 12/06/20 FINDINGS: SUPPORT DEVICES: None. HEART / MEDIASTINUM: The heart size is normal. LUNGS / PLEURA: There is moderately severe parenchymal disease in the right mid to lower lung, similar to the prior exam. There is mild patchy interstitial disease throughout the left lung. Mild patchy parenchymal opacity in the left upper lobe has cleared. No significant pleural effusion. No pneumothorax. ADDITIONAL FINDINGS: No significant additional findings. IMPRESSION: Bilateral parenchymal disease, much greater on the right than the left, is again identified. Mild disease in the left upper lobe has improved. Allied health notes reviewed: nursing
[2020-12-10] MEDS: PENICILLIN G BENZATHINE 1.2 MILLION UNIT/2 ML INJ IM SCH (14:49)
--- NOTE | 2020-12-10 15:32 | Vascular Lab Report ---
DUPLEX DOPPLER LOWER EXTREMITY VEINS, BILATERAL INDICATION / CLINICAL INFORMATION: swelling. TECHNIQUE: Duplex doppler imaging was performed through the veins of both lower extremities using geeta ous compression and other maneuvers. COMPARISON: Bilateral lower extremity venous Doppler 08/14/2020. FINDINGS: RIGHT COMMON FEMORAL VEIN: Negative. RIGHT FEMORAL VEIN: Negative. RIGHT POPLITEAL VEIN: Negative. RIGHT CALF VEINS: Negative. LEFT COMMON FEMORAL VEIN: Negative. LEFT FEMORAL VEIN: Negative. LEFT POPLITEAL VEIN: Negative. LEFT CALF VEINS: Negative. ADDITIONAL FINDINGS: Bilateral enlarged inguinal lymph nodes. IMPRESSION: 1. No sonographic evidence for DVT in either lower extremity. 2. Enlarged bilateral lymph nodes, may be reactive. Continued follow-up is recommended. Scribed by: Amalia Patino RDMS, RVT Scribed: 12/10/2020 10:48 AM Signer Name: Chuy Ibrahim MD Signed: 12/10/2020 3:28 PM Workstation Name: [id number]
--- NOTE | 2020-12-10 16:53 | Event Note ---
Date: 12/10/20 - tentatively scheduled for bronchoscopy on Thursday between noon & 3 pm to allow time for AFB smears to be resulted
[2020-12-10] MEDS: ENOXAPARIN 40 MG/0.4 ML INJ SUB-Q SCH (21:40)
[2020-12-11] MEDS: BENZONATATE 100 MG CAP PO SCH ×3 (05:22→21:58)
--- NOTE | 2020-12-11 07:26 | Progress Note ---
Assessment and Plan #Bilateral pneumonia, worse on right compared to left. This is chronic and has been present since 2019. Underwent a bronchoscopy by Dr. Ardon in October 2019. BAL culture grew usual respiratory shari, it seems fungal culture got canceled. Fungal stain was positive for hyphae and spores, negative for PJP. His CT scan in August 2020 showed a persistent masslike consolidation in the right hilar region. Repeat CT showed right hilar mass with infiltrates and mediastinal lymphadenopathy. For bronchoscopy on 12/12/2020 for BAL and antifungal cultures #Splenic hypodensities noted on previous CT scan. Splenic lesions appear improved on CT scan. Also seen was inguinal and retroperitoneal lymphadenopathy. #HIV: Compliant with Biktarvy. Viral load remains low, pending CD4 count. #Bilateral lower extremity purplish lesions: These were biopsied by dermatology outpatient, patient did not follow-up to get the results. 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 Treat with benzathine penicillin weekly x3 #Leukopenia, reactive thrombocytosis Recs: -awaiting bronchoscopy with possible transbronchial biopsy for histopath + for fungal, AFB cultures. Also recommend BAL for fungal and AFB cultures -f/u AFB, fungal blood cultures, Aspergillus galactomannan, histoplasma and blasto urinary antigens -Continue Biktarvy, therapeutic interchange to TDF, emtricitabine, dolutegravir as per hospital formulary -ceftriaxone stopped -f/u outside derm biopsy results -f/u CD4 count Bronchoscopy scheduled for December 12, [address] Silverio Woodall Date of service: 12/10/20 Principal diagnosis: Ac hypoxemic resp failure; Pneumonia; HIV+ve; PUI COVID-19; Anemia Interval history: Assessment and Plan Assessment and plan: 35-year-old male with known history of HIV with unknown CD4 count presenting to the emergency room today complaining of shortness of breath and difficulty breathing. Symptoms were said to have been ongoing for the past 2 to 3 days. Shortness of breath is worse on exertion. He denies any fever or chills, no chest pain, no nausea vomiting, no abdominal pain, no diarrhea, no headache or dizziness, no diaphoresis. Patient states that he tested positive for COVID-19 about a month ago but later tested negative about 2 weeks later. Upon arrival in the emergency room patient had an oxygen saturation of about 89% on room air. Work-up in the emergency room today chest x-ray reveals: Bilateral parenchymal disease,right greater than left. Mild disease in the left upper lobe has improved. She has been admitted with bilateral pneumonia with hypoxia. Will also rule out COVID-19. 12/06:Patient seen and examined today resting comfortably although still with shortness of breath on supine position reports cough. Previous imaging study did reveal mass in the hilum area previous documentation by pulmonary shows that patient had a bronchoscopy in 2019 that showed negative cytology and only fungal entities noted. Will obtain an echocardiogram as none has been obtained in this patient with recurrent shortness of breath and hypoxic respiratory failure with underlying cough in supine position. Will await ID input and also will consult pulmonary. Continue current oxygen management 12/07: Patient underwent follow-up testing today including recommendations by ID as noted below. Otherwise we will continue current management with antibiotics. It appears a fungal culture. ID was canceled but BAL done at that time grew normal shari. Will follow culture results at this time. Pulmonary input is appreciated. Anticipate discharge when symptomatic improvement is noted Covid t est result is still pending. Cryptococcal antigen ordered -CT chest, abdomen and pelvis with IV contrast ordered -Fungal blood culture ordered -Aspergillus galactomannan ordered -Histoplasma Ur Ag, blasto Ur Ag ordered -Cocci Ab ordered -update viral load and CD4 count 12/08/2020 Patient waiting for bronchoscopy Otherwise doing well 12/09/2020 Patient waiting for bronchoscopy 12/10/2020 patient bronchoscopy scheduled for 12/12/2020 for BAL and fungal cultures Objective - Constitutional Vitals: Vital Signs - 12hr 12/10/20 12/10/20 12/10/20 20:46 21:12 21:14 Temperature Pulse Rate Pulse Rate [ 71 Anterior Bilateral Throughout] Respiratory Rate Respiratory 20 Rate [Anterior Bilateral Throughout] Blood Pressure O2 Sat by Pulse 96 97 Oximetry 12/10/20 12/11/20 22:14 03:36 Temperature 97.7 F 97.8 F Pulse Rate 84 88 Pulse Rate [ Anterior Bilateral Throughout] Respiratory 18 18 Rate Respiratory Rate [Anterior Bilateral Throughout] Blood Pressure 110/73 98/59 O2 Sat by Pulse 97 91 Oximetry General appearance: Present: no acute distress, well-nourished - EENT Eyes: PERRL, EOM intact ENT: hearing intact, clear oral mucosa Ears: bilateral: normal - Neck Neck: supple, normal ROM - Respiratory Respiratory effort: normal Respiratory: bilateral: CTA - Breasts Breasts: normal - Cardiovascular Heart rate: 78 Rhythm: regular Heart Sounds: Present: S1 & S2. Absent: gallop, rub Extremities: pulses intact, No edema, normal color, Full ROM - Gastrointestinal General gastrointestinal: Present: soft, non-tender, non-distended, normal bowel sounds - Genitourinary Male genitourinary: normal - Integumentary Integumentary: clear, warm, dry - Musculoskeletal Musculoskeletal: 1, strength equal bilaterally - Neurologic Neurologic: moves all extremities - Psychiatric Psychiatric: memory intact, appropriate mood/affect, intact judgment & insight - Labs CBC & Chem 7: 12/08/20 08:37 12/08/20 08:37 HEART Score - HEART Score Troponin: Troponin T < 0.010 ng/mL (0.00-0.029) 12/06/20 01:50
[2020-12-11] MEDS: IPRATROPIUM/ALBUTEROL SULFATE 3 ML AMPUL.NEB IH SCH ×3 (07:44→22:49)
--- NOTE | 2020-12-11 10:33 | Progress Note ---
Assessment and Plan 35-year-old male with known history of HIV with unknown CD4 count presented to the emergency room complaining of shortness of breath and difficulty breathing of 2-3 day duration. Patient chest x-ray showed bilateral pneumonia. Patient admitted for pneumonia. Patient alert and awake. Resting on 2L O2. O2 saturation 91%. Says he is breath ing better. No acute respiratory distress. Patient has no history of smoking, alcohol, or drug use. 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 No known drug allergies. Patient afebrile and has leukopenia. WBC count 2.9. Chest X-ray done on 12/06/20. Chest x-ray showed bilateral parenchymal disease, much greater on the right than the left, is again identified. Mild disease in the left upper lobe has improved. Patient presently on penicillin-G, albuterol/ipratropium, lovanox, benzonatate. Oropharyngeal cultures inconclusive. - Patient Problems (1) Acute respiratory failure Current Visit: Yes Status: Acute Plan to address problem: Patient on 2L O2. O2 saturation 91%. Albuterol/Ipratropium aerosol treatments. Continue s/c lovanox. (2) Bilateral pneumonia Current Visit: Yes Status: Acute Plan to address problem: Patient is on penicillin-G. (3) Suspected COVID-19 virus infection Current Visit: Yes Status: Acute Plan to address problem: Negative COVID-19 serology. (4) HIV antibody positive Current Visit: No Status: Acute Plan to address problem: Management per ID. Subjective Date of service: 12/11/20 Principal diagnosis: Bilateral pneumonia Interval history: 35-year-old male with known history of HIV with unknown CD4 count presented to the emergency room complaining of shortness of breath and difficulty breathing of 2-3 day duration. Patient chest x-ray showed bilateral pneumonia. Patient admitted for pneumonia. Patient alert and awake. Resting on 2L O2. O2 saturation 91%. Says he is breathing better. No acute respiratory distress. Patient has no history of smoking, alcohol, or drug use. 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 No known drug allergies. Patient afebrile and has leukopenia. WBC count 2.9. Chest X-ray done on 12/06/20. Chest x-ray showed bilateral parenchymal disease, much greater on the right than the left, is again identified. Mild disease in the left upper lobe has improved. Patient presently on penicillin-G, albuterol/ipratropium, lovanox, benzonatate. Oropharyngeal cultures inconclusive. Objective Vital Signs - 12hr 12/11/20 12/11/20 12/11/20 03:36 07:50 07:55 Temperature 97.8 F Pulse Rate 88 Pulse Rate [ 82 Anterior Bilateral Throughout] Respiratory 18 Rate Respiratory 18 Rate [Anterior Bilateral Throughout] Blood Pressure 98/59 O2 Sat by Pulse 91 97 Oximetry Constitutional: no acute distress, alert, other (appears weak) Eyes: non-icteric ENT: oropharynx moist Neck: supple, no lymphadenopathy, no JVD Effort: normal Ascultation: Bilateral: rales (R>L), rhonchi Percussion: Bilateral: not dull Cardiovascular: regular rate and rhythm Gastrointestinal: normoactive bowel sounds, soft, non-tender, non-distended Integumentary: rash (to legs) Extremities: no cyanosis, pulses normal, no ischemia or petechiae, edema (1+) Neurologic: non-focal exam, pupils equal and round, CN II-XII normal, motor strength normal and Psychiatric: mood appropriate CBC and BMP: 12/12/20 10:29 12/12/20 10:29 ABG, PT/INR, D-dimer: PT/INR, D-dimer PT 14.4 Sec. (12.2-14.9) 12/07/20 06:25 INR 1.13 (0.87-1.13) 12/07/20 06:25 D-Dimer 636.67 ng/mlDDU (0-234) H 12/06/20 01:50 Abnormal lab findings: Abnormal Labs 12/06/20 12/06/20 12/06/20 01:50 01:50 01:50 WBC 4.4 L Hgb 10.9 L Hct 34.2 L MCV 78 L MCH 25 L RDW 18.0 H Plt Count 494 H [place] % (Auto) 9.7 H Eos % (Auto) 7.1 H Lymph # (Auto) 1.0 L Seg Neutrophils # INR D-Dimer Sodium 135 L Potassium BUN 8 L Glucose 102 H Calcium 7.7 L ALT 5 L Lactate Dehydrogenase 212 H C-Reactive Protein Albumin 2.8 L Syphilis IgG Antibody HIV-1 RNA PCR copies/ml HIV-1 RNA (PCR) log 12/06/20 12/06/20 12/06/20 01:50 01:50 01:50 WBC Hgb Hct MCV MCH RDW Plt Count [place] % (Auto) Eos % (Auto) Lymph # (Auto) Seg Neutrophils # INR 1.16 H D-Dimer 636.67 H Sodium Potassium BUN Glucose 103 H Calcium ALT Lactate Dehydrogenase 222 H C-Reactive Protein 3.90 H Albumin Syphilis IgG Antibody HIV-1 RNA PCR copies/ml HIV-1 RNA (PCR) log 12/06/20 12/07/20 12/07/20 15:54 06:25 06:25 WBC 2.9 L Hgb 9.8 L Hct 30.7 L MCV 79 L MCH 25 L RDW 17.5 H Plt Count 484 H [place] % (Auto) 14.9 H Eos % (Auto) Lymph # (Auto) 0.8 L Seg Neutrophils # 1.7 L INR D-Dimer Sodium Potassium 3.3 L BUN Glucose 115 H Calcium 7.7 L ALT Lactate Dehydrogenase C-Reactive Protein Albumin Syphilis IgG Antibody HIV-1 RNA PCR copies/ml 51 H HIV-1 RNA (PCR) log 1.71 H 12/07/20 12/08/20 12/08/20 14:36 08:37 08:37 WBC 2.9 L Hgb 11.2 L Hct 34.7 L MCV 80 L MCH 26 L RDW 17.9 H Plt Count 519 H [place] % (Auto) Eos % (Auto) Lymph # (Auto) Seg Neutrophils # INR D-Dimer Sodium 135 L Potassium 3.3 L BUN 8 L Glucose Calcium 8.0 L ALT Lactate Dehydrogenase C-Reactive Protein Albumin Syphilis IgG Antibody Reactive A HIV-1 RNA PCR copies/ml HIV-1 RNA (PCR) log Allied health notes reviewed: nursing
--- NOTE | 2020-12-11 11:07 | Progress Note ---
Assessment and Plan Assessment and plan: Bilateral pneumonia Patient placed on empiric IV antibiotics. Pulmonary following right hilar mass/ mediastinal lymphadenopathy Pulmonary following possible bronchoscopy tomorrow 12/12/2020 Patient had bronchoscopy during the previous admission Findings reviewed HIV antibody positive Unknown foot CD4 counts. Patient states he is on antiretroviral agent. Management per ID Hypoxia Secondary to the pneumonia. We will place on oxygen and keep O2 saturation greater or equal to 94%. 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 Full code status Patient is a full code. Closely monitor the patient and adjust the management as needed Plan of care reviewed with the patient and his nurse Consultants and recommendations noted and appreciated Brief history 35-year-old male with known history of HIV with unknown CD4 count presenting to the emergency room today complaining of shortness of breath and difficulty breathing. Symptoms were said to have been ongoing for the past 2 to 3 days. Shortness of breath is worse on exertion. He denies any fever or chills, no chest pain, no nausea vomiting, no abdominal pain, no diarrhea, no headache or dizziness, no diaphoresis. Patient states that he tested positive for COVID-19 about a month ago but later tested negative about 2 weeks later. Upon arrival in the emergency room patient had an oxygen saturation of about 89% on room air. Work-up in the emergency room today chest x-ray reveals: Bilateral parenchymal disease,right greater than left. Mild disease in the left upper lobe has improved.Patient was admitted with bilateral pneumonia with hypoxia. Will also rule out COVID-19. 12/06:Patient seen and examined today resting comfortably although still with shortness of breath on supine position reports cough. Previous imaging study did reveal mass in the hilum area previous documentation by pulmonary shows that patient had a bronchoscopy in 2019 that showed negative cytology and only fungal entities noted. Will obtain an echocardiogram as none has been obtained in this patient with recurrent shortness of breath and hypoxic respiratory failure with underlying cough in supine position. Will await ID input and also will consult pulmonary. Continue current oxygen management 12/07: Patient underwent follow-up testing today including recommendations by ID as noted below. Otherwise we will continue current management with antibiotics. It appears a fungal culture. ID was canceled but BAL done at that time grew normal shari. Will follow culture results at this time. Pulmonary input is appreciated. Anticipate discharge when symptomatic improvement is noted Covid test result is still pending. 12/11/2020; bronchoscopy tomorrow 12/12/2020 Patient n.p.o. from midnight, consultants recommendations noted and appreciated History Interval history: Patient was in isolation room Seen and examined the patient at the bedside Patient's chart and medications reviewed Complains of shortness of breath Vital signs noted Schedule for bronchoscopy tomorrow Hospitalist Physical - Constitutional Vitals: Temp Pulse Resp BP Pulse Ox 97.8 F 82 18 98/59 97 12/11/20 03:36 12/11/20 07:50 12/11/20 07:50 12/11/20 03:36 12/11/20 07:55 General appearance: Present: no acute distress, well-nourished - EENT Eyes: Present: PERRL, EOM intact - Neck Neck: Present: supple, normal ROM - Respiratory Respiratory effort: normal Respiratory: bilateral: diminished, rhonchi, negative: rales, wheezing - Cardiovascular Rhythm: regular Heart Sounds: Present: S1 & S2 - Extremities Extremities: no ischemia, No edema - Abdominal General gastrointestinal: soft, non-tender, non-distended, normal bowel sounds - Integumentary Integumentary: Present: clear, warm - Psychiatric Psychiatric: appropriate mood/affect, cooperative - Neurologic Neurologic: moves all extremities HEART Score - HEART Score Troponin: Troponin T < 0.010 ng/mL (0.00-0.029) 12/06/20 01:50 Results - Labs CBC & Chem 7: 12/08/20 08:37 12/08/20 08:37 Labs: Laboratory Last Values WBC 2.9 K/mm3 (4.5-11.0) L 12/08/20 08:37 RBC 4.35 M/mm3 (3.65-5.03) 12/08/20 08:37 Hgb 11.2 gm/dl (11.8-15.2) L 12/08/20 08:37 Hct 34.7 % (35.5-45.6) L 12/08/20 08:37 MCV 80 fl (84-94) L 12/08/20 08:37 MCH 26 pg (28-32) L 12/08/20 08:37 MCHC 32 % (32-34) 12/08/20 08:37 RDW 17.9 % (13.2-15.2) H 12/08/20 08:37 Plt Count 519 K/mm3 (140-440) H 12/08/20 08:37 Lymph % (Auto) 27.0 % (13.4-35.0) 12/07/20 06:25 [place] % (Auto) 14.9 % (0.0-7.3) H 12/07/20 06:25 Eos % (Auto) 0.1 % (0.0-4.3) 12/07/20 06:25 Baso % (Auto) 0.1 % (0.0-1.8) 12/07/20 06:25 Lymph # (Auto) 0.8 K/mm3 (1.2-5.4) L 12/07/20 06:25 [place] # (Auto) 0.4 K/mm3 (0.0-0.8) 12/07/20 06:25 Eos # (Auto) 0.0 K/mm3 (0.0-0.4) 12/07/20 06:25 Baso # (Auto) 0.0 K/mm3 (0.0-0.1) 12/07/20 06:25 Seg Neutrophils % 57.9 % (40.0-70.0) 12/07/20 06:25 Seg Neutrophils # 1.7 K/mm3 (1.8-7.7) L 12/07/20 06:25 PT 14.4 Sec. (12.2-14.9) 12/07/20 06:25 INR 1.13 (0.87-1.13) 12/07/20 06:25 APTT 36.5 Sec. (24.2-36.6) 12/06/20 01:50 D-Dimer 636.67 ng/mlDDU (0-234) H 12/06/20 01:50 Sodium 135 mmol/L (137-145) L 12/08/20 08:37 Potassium 3.3 mmol/L (3.6-5.0) L 12/08/20 08:37 Chloride 102.6 mmol/L (98-107) 12/08/20 08:37 Carbon Dioxide 23 mmol/L (22-30) 12/08/20 08:37 Anion Gap 13 mmol/L 12/08/20 08:37 BUN 8 mg/dL (9-20) L 12/08/20 08:37 Creatinine 0.8 mg/dL (0.8-1.3) 12/08/20 08:37 Estimated GFR > 60 ml/min 12/08/20 08:37 BUN/Creatinine Ratio 10 % 12/08/20 08:37 Glucose 93 mg/dL (75-100) 12/08/20 08:37 Calcium 8.0 mg/dL (8.4-10.2) L 12/08/20 08:37 Ferritin 195.2 ng/mL (30.0-300.0) 12/06/20 01:50 Total Bilirubin 0.20 mg/dL (0.1-1.2) 12/06/20 01:50 AST 12 units/L (5-40) 12/06/20 01:50 ALT 5 units/L (7-56) L 12/06/20 01:50 Alkaline Phosphatase 55 units/L (35-129) 12/06/20 01:50 Lactate Dehydrogenase 212 units/L (91-180) H 12/06/20 01:50 Lactate Dehydrogenase 222 units/L (91-180) H 12/06/20 01:50 Troponin T < 0.010 ng/mL (0.00-0.029) 12/06/20 01:50 C-Reactive Protein 3.90 mg/dL (0.00-1.30) H 12/06/20 01:50 NT-Pro-B Natriuret Pep 98.86 pg/mL (0-450) 12/06/20 01:50 Total Protein 6.9 g/dL (6.3-8.2) 12/06/20 01:50 Albumin 2.8 g/dL (3.9-5) L 12/06/20 01:50 Albumin/Globulin Ratio 0.7 % 12/06/20 01:50 Procalcitonin 0.06 ng/mL (<0.15) 12/06/20 01:50 Syphilis IgG Antibody Reactive (NonReactive) A 12/07/20 14:36 RPR Titer 1:2 12/07/20 14:36 Coronavirus (PCR) Negative (Negative) 12/06/20 09:50 HIV-1 RNA PCR copies/ml 51 Copies/mL H 12/06/20 15:54 HIV-1 RNA (PCR) log 1.71 Log cps/mL H 12/06/20 15:54 AFB Identification 12/09/20 05:15 Fungal Id Prelim 12/08/20 08:23 Microbiology: Microbiology 12/06/20 01:50 Peripheral/Venous Blood Culture - Final NO GROWTH AFTER 5 DAYS 12/06/20 01:45 Peripheral/Venous Blood Culture - Final NO GROWTH AFTER 5 DAYS Thakur/IV: Voiding Method Toilet Active Medications - Current Medications Current Medications: Generic Name Dose Route Start Last Admin Trade Name Freq PRN Reason Stop Dose Admin Acetaminophen 650 mg 12/06/20 03:46 12/07/20 22:00 Acetaminophen 325 Mg Tab PO 650 mg Q4H PRN Administration Pain MILD(1-3)/Fever >100.5/LIU Albuterol/Ipratropium 1 ampul 12/09/20 20:00 12/11/20 07:44 Ipratropium/Albuterol Sulfate 3 Ml Ampul.Neb IH 1 ampul TIDRT [facility] Administration Benzonatate 100 mg 12/06/20 14:00 12/11/20 05:22 Benzonatate 100 Mg Cap PO 100 mg Q8HR CEFERINO Administration Emtricitabine 200 mg 12/06/20 10:00 12/10/20 09:10 Emtricitabine 200 Mg Cap PO 200 mg QDAY CEFERINO Administration Enoxaparin Sodium 40 mg 12/06/20 22:00 12/10/20 21:40 Enoxaparin 40 Mg/0.4 Ml Inj SUB-Q 40 mg QDAY@2200 [facility] Administration Protocol Guaifenesin 200 mg 12/07/20 21:29 12/09/20 17:58 Guaifenesin 100 Mg/5 Ml Oral Liqd PO 200 mg Q4H PRN Administration Cough Morphine Sulfate 2 mg 12/06/20 03:46 Morphine 2 Mg/1 Ml Inj IV Q4H PRN Pain, Moderate (4-6) Ondansetron HCl 4 mg 12/06/20 03:46 Ondansetron 4 Mg/2 Ml Inj IV Q8H PRN Nausea And Vomiting Penicillin G Benzathine 2.4 mil.units 12/10/20 15:00 12/10/20 14:49 Penicillin G Benzathine 1.2 Million Unit/2 Ml Inj IM 12/24/20 15:01 2.4 mil.units Q7D CEFERINO Administration Sodium Chloride 10 ml 12/06/20 10:00 12/10/20 21:40 Sodium Chloride 0.9% 10 Ml Flush Syringe IV 10 ml BID CEFERINO Administration Sodium Chloride 10 ml 12/06/20 03:46 Sodium Chloride 0.9% 10 Ml Flush Syringe IV PRN PRN LINE FLUSH Tenofovir Disoproxil Fumarate 300 mg 12/06/20 10:00 12/10/20 09:10 Tenofovir 300 Mg Tab PO 300 mg QDAY CEFERINO Administration
[2020-12-11] MEDS: TENOFOVIR 300 MG TAB PO SCH (11:28)
[2020-12-11] MEDS: EMTRICITABINE 200 MG CAP PO SCH (11:28)
[2020-12-11] MEDS: DOLUTEGRAVIR 50 MG TAB PO SCH (11:29)
--- NOTE | 2020-12-11 13:31 | Progress Note ---
Assessment and Plan Cultures: Previous chart and cultures reviewed. 12/06/2020 blood culture: no growth 12/06/2020 serum cryptococcal antigen: Negative 12/06/2020 fungal blood culture: In process 12/07/2020 sputum culture: Oral contamination Syphilis IgG positive, 12/07/2020 RPR titer: 1:2 12/06/2020 HIV RNA PCR: 51 12/08/2020 sputum smear for fungus and AFB: Negative A/P: 35-year-old male with HIV, recent admission in October 2020 with COVID-19 was admitted to the hospital with complaints of cough and shortness of breath: #Bilateral pneumonia, worse on right compared to left. This is chronic and has been present since 2019. Underwent a bronchoscopy by Dr. Ardon in October 2019. BAL culture grew usual respiratory shari, it seems fungal culture got canceled. Fungal stain was positive for hyphae and spores, negative for PJP. His CT scan in August 2020 showed a persistent masslike consolidation in the right hilar region. Repeat CT showed right hilar mass with infiltrates and mediastinal ly mphadenopathy. #Splenic hypodensities noted on previous CT scan. Splenic lesions appear i mproved on CT scan. Also seen was inguinal and retroperitoneal lymphadenopathy. #HIV: Compliant with Biktarvy. Viral load remains low, pending CD4 count. #Bilateral lower extremity purplish lesions: These were biopsied by dermatology outpatient, patient did not follow-up to get the results. 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 Treat with benzathine penicillin weekly x3 #Leukopenia, reactive thrombocytosis Recs: -awaiting bronchoscopy with possible transbronchial biopsy for histopath + for fungal, AFB cultures. Also recommend BAL for fungal and AFB cultures -f/u AFB, fungal blood cultures, Aspergillus galactomannan, histoplasma and blasto urinary antigens -Continue Biktarvy, therapeutic interchange to TDF, emtricitabine, dolutegravir as per hospital formulary -benzathine penicillin weekly x 3 for late latent syphilis. got 1 dose 12/10/2020 -f/u outside derm biopsy results -f/u CD4 count León Velásquez MD, FACP [facility] O: [phone] F: [phone] Subjective Date of service: 12/11/20 Principal diagnosis: Bilateral pneumonia Interval history: No fever. No new complaints. Objective - Exam Narrative Exam: Physical Exam: Constitutional: Alert, cooperative. No acute distress Head, Ears, Nose: Normocephalic, atraumatic. External ears, nose normal Eyes: Conjunctivae/corneas clear. No icterus. No ptosis. Neck: Supple, no meningeal signs Cardiovascular: S1, S2 normal. Respiratory: b/l crackles + GI: Soft, non-tender; bowel sounds normal. No peritoneal signs Musculoskeletal: No pedal edema, no cyanosis. Skin: b/L LE with purplish lesions Hem/Lymphatic: No palpable cervical or supraclavicular nodes. No lymphangitis Psych: Mood ok. Affect normal Neurological: Awake, alert, oriented. No gross abnormality - Constitutional Vitals: Vital Signs Temp Pulse Resp BP Pulse Ox 97.6 F 83 18 112/79 98 12/11/20 12:56 12/11/20 12:56 12/11/20 12:56 12/11/20 12:56 12/11/20 12:56 Temperature -Last 24 Hours Temperature 97.6 F Temperature 97.8 F Temperature 97.7 F Temperature 98.4 F - Labs CBC & Chem 7: 12/08/20 08:37 12/08/20 08:37
[2020-12-11] MEDS ORDERED: POTASSIUM CHLORIDE ER 20 MEQ TAB PO NR (18:07)
[2020-12-11] MEDS: ENOXAPARIN 40 MG/0.4 ML INJ SUB-Q SCH (21:57)
[2020-12-12] MEDS: BENZONATATE 100 MG CAP PO SCH ×3 (05:40→22:40)
[2020-12-12] MEDS: IPRATROPIUM/ALBUTEROL SULFATE 3 ML AMPUL.NEB IH SCH ×3 (08:21→21:17)
[2020-12-12] MEDS: DOLUTEGRAVIR 50 MG TAB PO SCH ×2 (09:43→18:50)
[2020-12-12] MEDS: EMTRICITABINE 200 MG CAP PO SCH ×2 (09:43→18:48)
[2020-12-12] MEDS: TENOFOVIR 300 MG TAB PO SCH ×3 (09:43→18:53)
[2020-12-12 10:39] LABS: Basophils % (Auto) 0.6 % (0.0-1.8); Eosinophils # (Auto) 0.1 K/mm3 (0.0-0.4); Eosinophils % (Auto) 4.2 % (0.0-4.3); Hematocrit 36.3 % (35.5-45.6); Hemoglobin 11.6 gm/dl (11.8-15.2); Lymphocytes # (Auto) 0.8 K/mm3 (1.2-5.4); Lymphocytes % (Auto) 29.9 % (13.4-35.0); Mean Corpuscular HGB Conc 32 % (32-34); Mean Corpuscular Volume 80 fl (84-94); Monocytes # (Auto) 0.3 K/mm3 (0.0-0.8); Monocytes % (Auto) 11.4 % (0.0-7.3); Platelet Count 588 K/mm3 (140-440); Red Blood Count 4.56 M/mm3 (3.65-5.03); Red Cell Distribution Width 17.2 % (13.2-15.2)
[2020-12-12] MEDS ORDERED: LIDOCAINE (2%) 20 MG/1 ML VIAL 20 ML MDV INFILTRATI NR (10:43)
[2020-12-12] MEDS ORDERED: LIDOCAINE VISCOUS 2% 15 ML ORAL LIQD MM NR (10:45)
[2020-12-12] MEDS ORDERED: SODIUM CHLORIDE 0.9% 1000 ML 1,000 ML IV SCH (10:45)
[2020-12-12] MEDS ORDERED: BENZOCAINE 20% TOP SPRAY 0.5 ML UNIT DOSE MM NR (11:00)
--- NOTE | 2020-12-12 11:35 | Anesthesia Day of Surgery ---
Anesthesia Day of Surgery - Day of Surgery Patient Examined: Yes Patient H&P Reviewed: Yes Patient is NPO: Yes
--- NOTE | 2020-12-12 11:40 | Anesthesia Consultation ---
Anesthesia Consult and Med Hx Date of service: 12/12/20 - Airway Anesthetic Teeth Evaluation: Chipped ROM Head & Neck: Adequate Mental/Hyoid Distance: Adequate Mallampati Class: Class III Intubation Access Assessment: Probably Good - Pre-Operative Health Status ASA Pre-Surgery Classification: ASA3 Proposed Anesthetic Plan: MAC - Pulmonary Hx Smoking: No Hx Asthma: No Hx Respiratory Symptoms: Yes (COVID in October) SOB: Yes COPD: No Hx Pneumonia: Yes (Chronic) Hx Sleep Apnea: No - Cardiovascular System Hx Hypertension: No Hx Coronary Artery Disease: No Hx Heart Attack/AMI: No Hx Angina: No Hx Percutaneous Transluminal Coronary Angioplasty (PTCA): No Hx Pacemaker: No Hx Internal Defibrillator: No Hx Valvular Heart Disease: No Hx Heart Murmur: No Hx Peripheral Vascular Disease: No - Central Nervous System Hx Seizures: No CVA: No Hx Psychiatric Problems: No - Gastrointestinal Hx Gastroesophageal Reflux Disease: No - Endocrine Hx Renal Disease: No Hx End Stage Renal Disease: No Hx Liver Disease: No Hx Insulin Dependent Diabetes: No Hx Non-Insulin Dependent Diabetes: No Hx Thyroid Disease: No Hx Hypothyroidism: No Hx Hyperthyroidism: No - Hematic Hx Anemia: Yes - Other Systems Hx Obesity: No - Additional Comments Anesthesia Medical History Comments: 35-year-old male with HIV, recent admission in October 2020 with COVID-19 was admitted to the hospital with complaints of cough and shortness of breath: #Bilateral pneumonia, worse on right compared to left. This is chronic and has been present since 2019. Underwent a bronchoscopy by Dr. Ardon in October 2019. BAL culture grew usual respiratory shari, it seems fungal culture got canceled. Fungal stain was positive for hyphae and spores, negative for PJP. His CT scan in August 2020 showed a persistent masslike consolidation in the right hilar region. Repeat CT showed right hilar mass with infiltrates and mediastinal lymphadenopathy. Possible syphillis
[2020-12-12 11:45] LABS: BUN/Creatinine Ratio 9; Blood Urea Nitrogen 7 mg/dL (9-20); Calcium 8.6 mg/dL (8.4-10.2); Hemolysis Index 1
[2020-12-12] MEDS ORDERED: LIDOCAINE VISCOUS 2% 15 ML ORAL LIQD PO ONE (11:45)
[2020-12-12] MEDS ORDERED: BENZOCAINE 20% TOP SPRAY 0.5 ML UNIT DOSE MM ONE (11:45)
[2020-12-12] MEDS ORDERED: KETAMINE/STERILE WATER 50 MG/ML SYRINGE ONE (11:54)
[2020-12-12] MEDS ORDERED: fentaNYL 100 MCG/2 ML INJ ONE (11:54)
[2020-12-12] MEDS ORDERED: propofoL 200 MG/20 ML VIAL IV ONE ×3 (11:54→13:03)
[2020-12-12] MEDS ORDERED: LIDOCAINE MPF (2%) 20 MG/1 ML VIAL 5 ML ONE (12:04)
[2020-12-12] MEDS ORDERED: ONDANSETRON 4 MG/2 ML INJ ONE (12:05)
[2020-12-12] MEDS ORDERED: EPINEPHrine 1 MG/10 ML SYRINGE ONE (12:54)
--- NOTE | 2020-12-12 13:36 | Event Note ---
Date: 12/12/20 Patient is off the floor for procedure. Will follow up tomorrow.
--- NOTE | 2020-12-12 13:38 | Procedure Note ---
Date of procedure: 12/12/20 Pre-op diagnosis: Bialetral Pneumonia Post-op diagnosis: same Procedure: Fiberoptic Bronchoscopy with TBB, BAL & Brushings (Full dictation # [id number]) Please see dictated notes for full details
--- NOTE | 2020-12-12 13:40 | Post Anesthesia Evaluation ---
- Post Anesthesia Evaluation Patient Participated: Yes Airway Patent: Yes Stable Respiratory Function: Yes Nausea/Vomiting: No Temp > 96.8F: Yes Pain Manageable: Yes Adequeate Hydration: Yes Anesthesia Complications: No Block Receding Appropriately: Not Applicable Patient on Ventilator: No
[2020-12-12] MEDS ORDERED: HYDROcodone/HOMATROPINE 5-1.5MG /5 ML ORAL LIQD UNIT DOSE PO PRN (13:52)
--- NOTE | 2020-12-12 14:08 | XRay Report ---
CHEST 1 VIEW INDICATION: Pneumothorax COMPARISON: 12/06/2020 FINDINGS: Support devices: None Heart: Stable. Lungs/Pleura: Extensive right lung parenchymal disease persists unchanged. Minimal disease persists o n the left. No definite new disease. IMPRESSION: 1. No significant change. Signer Name: Arash Eden MD Signed: 12/12/2020 2:03 PM Workstation Name: [id number]
--- NOTE | 2020-12-12 14:31 | Operative Report ---
DATE OF SURGERY: 12/12/2020 PROCEDURES: Fiberoptic bronchoscopy with transbronchial biopsies, bronchial washings, bronchoalveolar lavage and cytology brushings. CONSENT: Informed and witnessed obtained from the patient. INDICATIONS: Bilateral pneumonia that is nonresolving in a patient with increased respiratory distress and streaky hemoptysis. COMPLICATIONS: No immediate procedural complications. Sedation was provided by the anesthesiologist and included the use of propofol. DESCRIPTION OF PROCEDURE: After informed and witnessed consent as well as premedication, fiberoptic bronchoscope was passed through the right nostril and advanced into the distal naris. It was a little narrow on the right side that was abandoned and the left nostril was used. There was quite a lot of secretions in the oropharynx. Ultimately, I was able to locate the vocal cords, both were bilaterally mobile. Topical lidocaine, 3 mL was applied over the vocal cords twice and then the area was entered. Again, secretions were noted. There was some bleeding from the upper airway that was quickly suctioned out trying to get down the trachea. I then advanced to the tasha. There was some tracheal distortion with a tracheal architecture being pulled towards the right side. Tasha was identified. Another 3 mL of topical lidocaine was applied at the tasha. From the right mainstem entrance, I could see some thick tenacious mucoid secretions that I was able to suction out of the airway. I proceeded to evaluate the right upper lobe. Again, there were secretions, nonbloody, in the right upper lobe region. The whole of the endobronchial mucosa really from the main stem bronchi all the way down was significantly friable and also appeared to be significantly cobblestoned. I do not see any gross endobronchial lesion in the right upper lobe. It was a brief survey. The right middle lobe opening was significantly narrowed. I then proceeded to advance into of the basilar segments. Of note, there were again significant secretions. I did wedge the bronchoscope in the right lower lobe, I believe the lateral segment, basilar segment. From this segment, under fluoroscopy, transbronchial biopsies were taken. A couple of passes for transbronchial biopsies were taken. Those were both placed in saline for cultures. I then did the brushings for cytology from the right lower lobe, again under fluoroscopy. Then, I took a bronchoalveolar lavage sample. Fiberoptic bronchoscope was then withdrawn to the right middle lobe opening. Again, this was narrowed, but I was able to get a fiberoptic bronchoscope into the airway. There was some bleeding noted here. From the right middle lobe, I took a couple of transbronchial biopsies. Again, one was sent for pathology and the other one for cultures. I then took a bronchoalveolar lavage samples or attempted to. There was significant bleeding at this point. After I had taken by bronchial washings, really the endobronchial washings, I then ___ as far as I could in the opening and I had to apply in total and sequential aliquots given some time in between to assess his response to the epinephrine. I believe it was topical 1:100,000 epinephrine. I applied a total of 9 mL individual aliquots of 3 mL. His pulse never really went above 115-120. The fiberoptic bronchoscope was then withdrawn from the right middle lobe. There were a lot of secretions around the airway. We took time to suction the secretions and stabilize the patient. Then, the fiberoptic bronchoscope was advanced into the left main stem bronchus. A quick survey of the lingular region was done. No gross endobronchial lesion and then the fiberoptic bronchoscope was advanced quickly into the basilar segment of the left lower lobe, unclear which one. From this segment. bronchoalveolar lavage samples were taken. Fiberoptic bronchoscope was then pulled out to the tasha. I reevaluated the right middle lobe and did not see any significant bleeding, but I did put another 3 mL to make a total of 9 mL. So initially, I had put two aliquots of 3 mL and then on this final survey, another 3 mL were placed. Fiberoptic bronchoscope was then withdrawn again through bilaterally mobile vocal cords. The patient was coughing. The patient tolerated the procedure relatively well. His O2 sats had been recovered by the time of this discussion and he was responding appropriately. From the right lower lobe, we will be sending AFB cultures of the transbronchial biopsy, fungal cultures of the transbronchial biopsy, cytology from the brushing and washing, respiratory cultures from the washing. From the right middle lobe, we will send the pathology from the transbronchial biopsies. We will send cytology from the wash and AFB cultures for transbronchial biopsies from the right middle lobe. Then, from the left lower lobe, a cytology respiratory cultures and AFB cultures and smears will be sent from the washes. Again, the patient tolerated the procedure. A post-procedure chest x-ray has been ordered and is pending. TID: [id number] RECEIPT: [id number] OMAR/KOKO
[2020-12-12 16:27] LABS: CD4/CD8 Ratio 0.37 (0.86-5.00)
--- NOTE | 2020-12-12 16:27 | Progress Note ---
Assessment and Plan Assessment and plan: Patient is scheduled for bronchoscopy today Bilateral pneumonia Patient placed on empiric IV antibiotics. Procalcitonin is low, antibiotics DC'd Supportive care right hilar mass/ mediastinal lymphadenopathy Pulmonary following scheduled for bronchoscopy today 12/12/2020 N.p.o. status HIV antibody positive Unknown foot CD4 counts. Continue antiretroviral agent. Management per ID Hypoxia/requiring 2 L nasal cannula oxygen Secondary to the pneumonia. Evaluation for home oxygen at discharge. 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 Full code status Patient is a full code. Closely monitor the patient and adjust the management as needed Follow bronchoscopy findings follow BAL analysis and cultures Plan of care reviewed with the patient and his nurse Consultants and recommendations noted and appreciated Brief history 35-year-old male with known history of HIV with unknown CD4 count presenting to the emergency room today complaining of shortness of breath and difficulty breathing. Symptoms were said to have been ongoing for the past 2 to 3 days. Shortness of breath is worse on exertion. He denies any fever or chills, no chest pain, no nausea vomiting, no abdominal pain, no diarrhea, no headache or dizziness, no diaphoresis. Patient states that he tested positive for COVID-19 about a month ago but later tested negative about 2 weeks later. Upon arrival in the emergency room patient was hypoxic with O2 sats of 89% on room air. Chest x-ray reveals: Bilateral parenchymal disease,right greater than left, admitted with bilateral pneumonia with hypoxia. COVID-19 ruled out 12/06:Patient seen and examined today resting comfortably although still with shortness of breath on supine position reports cough. Previous imaging study did reveal mass in the hilum area previous documentation by pulmonary shows that patient had a bronchoscopy in 2019 that showed negative cytology and only fungal entities noted. Will obtain an echocardiogram as none has been obtained in this patient with recurrent shortness of breath and hypoxic respiratory failure with underlying cough in supine position. Will await ID input and also will consult pulmonary. Continue current oxygen management 12/07: Patient underwent follow-up testing today including recommendations by ID as noted below. Otherwise we will continue current management with antibiotics. It appears a fungal culture. ID was canceled but BAL done at that time grew normal shari. Will follow culture results at this time. Pulmonary input is appreciated. Anticipate discharge when symptomatic improvement is noted Covid test result is still pending. 12/11/2020; bronchoscopy tomorrow 12/12/2020 Patient n.p.o. from midnight, consultants recommendations noted and appreciated 12/12/2020; bronchoscopy scheduled for today Follow procedure findings, cultures History Interval history: I have seen and examined the patient at the bedside Patient's chart and medications reviewed Patient is scheduled for bronchoscopy today No new complaints Vital signs noted Hospitalist Physical - Constitutional Vitals: Temp Pulse Resp BP Pulse Ox 97.6 F 78 16 90/50 92 12/12/20 14:54 12/12/20 14:54 12/12/20 14:54 12/12/20 14:54 12/12/20 14:54 General appearance: Present: no acute distress, well-nourished - EENT Eyes: Present: PERRL, EOM intact - Neck Neck: Present: supple, normal ROM - Respiratory Respiratory effort: normal Respiratory: bilateral: diminished, rhonchi, negative: rales, wheezing - Cardiovascular Rhythm: regular Heart Sounds: Present: S1 & S2 - Extremities Extremities: no ischemia, No edema - Abdominal General gastrointestinal: soft, non-tender, non-distended, normal bowel sounds - Integumentary Integumentary: Present: clear, warm - Psychiatric Psychiatric: appropriate mood/affect, cooperative - Neurologic Neurologic: CNII-XII intact, moves all extremities HEART Score - HEART Score Troponin: Troponin T < 0.010 ng/mL (0.00-0.029) 12/06/20 01:50 Results - Labs CBC & Chem 7: 12/12/20 10:29 12/12/20 10:29 Labs: Laboratory Last Values WBC 2.8 K/mm3 (4.5-11.0) L 12/12/20 10:29 RBC 4.56 M/mm3 (3.65-5.03) 12/12/20 10:29 Hgb 11.6 gm/dl (11.8-15.2) L 12/12/20 10:29 Hct 36.3 % (35.5-45.6) 12/12/20 10:29 MCV 80 fl (84-94) L 12/12/20 10:29 MCH 25 pg (28-32) L 12/12/20 10:29 MCHC 32 % (32-34) 12/12/20 10:29 RDW 17.2 % (13.2-15.2) H 12/12/20 10:29 Plt Count 588 K/mm3 (140-440) H 12/12/20 10:29 Lymph % (Auto) 29.9 % (13.4-35.0) 12/12/20 10:29 [place] % (Auto) 11.4 % (0.0-7.3) H 12/12/20 10:29 Eos % (Auto) 4.2 % (0.0-4.3) 12/12/20 10:29 Baso % (Auto) 0.6 % (0.0-1.8) 12/12/20 10: Lymph # (Auto) 0.8 K/mm3 (1.2-5.4) L 12/12/20 10: [place] # (Auto) 0.3 K/mm3 (0.0-0.8) 12/12/20 10: Eos # (Auto) 0.1 K/mm3 (0.0-0.4) 12/12/20 10: Baso # (Auto) 0.0 K/mm3 (0.0-0.1) 12/12/20 10: Seg Neutrophils % 53.9 % (40.0-70.0) 12/12/20 10: Seg Neutrophils # 1.5 K/mm3 (1.8-7.7) L 12/12/20 10: PT 14.4 Sec. (12.2-14.9) 12/07/20 06:25 INR 1.13 (0.87-1.13) 12/07/20 06:25 APTT 36.5 Sec. (24.2-36.6) 12/06/20 01:50 D-Dimer 636.67 ng/mlDDU (0-234) H 12/06/20 01:50 Sodium 138 mmol/L (137-145) 12/12/20 10:29 Potassium 4.3 mmol/L (3.6-5.0) D 12/12/20 10: Chloride 102.5 mmol/L (98-107) 12/12/20 10:29 Carbon Dioxide 27 mmol/L (22-30) 12/12/20 10:29 Anion Gap 13 mmol/L 12/12/20 10:29 BUN 7 mg/dL (9-20) L 12/12/20 10:29 Creatinine 0.8 mg/dL (0.8-1.3) 12/12/20 10:29 Estimated GFR > 60 ml/min 12/12/20 10:29 BUN/Creatinine Ratio 9 % 12/12/20 10:29 Glucose 88 mg/dL (75-100) 12/12/20 10:29 Calcium 8.6 mg/dL (8.4-10.2) 12/12/20 10:29 Ferritin 195.2 ng/mL (30.0-300.0) 12/06/20 01:50 Total Bilirubin 0.20 mg/dL (0.1-1.2) 12/06/20 01:50 AST 12 units/L (5-40) 12/06/20 01:50 ALT 5 units/L (7-56) L 12/06/20 01:50 Alkaline Phosphatase 55 units/L (35-129) 12/06/20 01:50 Lactate Dehydrogenase 212 units/L (91-180) H 12/06/20 01:50 Lactate Dehydrogenase 222 units/L (91-180) H 12/06/20 01:50 Troponin T < 0.010 ng/mL (0.00-0.029) 12/06/20 01:50 C-Reactive Protein 3.90 mg/dL (0.00-1.30) H 12/06/20 01:50 NT-Pro-B Natriuret Pep 98.86 pg/mL (0-450) 12/06/20 01:50 Total Protein 6.9 g/dL (6.3-8.2) 12/06/20 01:50 Albumin 2.8 g/dL (3.9-5) L 12/06/20 01:50 Albumin/Globulin Ratio 0.7 % 12/06/20 01:50 Procalcitonin 0.06 ng/mL (<0.15) 12/06/20 01:50 Syphilis IgG Antibody Reactive (NonReactive) A 12/07/20 14:36 RPR Titer 1:2 12/07/20 14:36 Coronavirus (PCR) Negative (Negative) 12/06/20 09:50 HIV-1 RNA PCR copies/ml 51 Copies/mL H 12/06/20 15:54 HIV-1 RNA (PCR) log 1.71 Log cps/mL H 12/06/20 15:54 AFB Identification Negative 12/09/20 21:30 Fungal Id Prelim 12/08/20 08:23 Thakur/IV: Voiding Method Toilet Active Medications - Current Medications Current Medications: Generic Name Dose Route Start Last Admin Trade Name Freq PRN Reason Stop Dose Admin Acetaminophen 650 mg 12/06/20 03:46 12/07/20 22:00 Acetaminophen 325 Mg Tab PO 650 mg Q4H PRN Administration Pain MILD(1-3)/Fever >100.5/LIU Albuterol/Ipratropium 1 ampul 12/09/20 20:00 12/12/20 15:55 Ipratropium/Albuterol Sulfate 3 Ml Ampul.Neb IH Not Given TIDRT CEFERINO Benzocaine 2 spray 12/12/20 11:00 Benzocaine 20% Top Williams 0.5 Ml Unit Dose MM 12/12/20 20:00 PREOP NR Benzonatate 100 mg 12/06/20 14:00 12/12/20 05:40 Benzonatate 100 Mg Cap PO Not Given Q8HR CEFERINO Emtricitabine 200 mg 12/06/20 10:00 12/12/20 09:43 Emtricitabine 200 Mg Cap PO Not Given QDAY CEFERINO Enoxaparin Sodium 40 mg 12/06/20 22:00 12/11/20 21:57 Enoxaparin 40 Mg/0.4 Ml Inj SUB-Q 40 mg QDAY@2200 CEFERINO Administration Protocol Guaifenesin 200 mg 12/07/20 21:29 12/09/20 17:58 Guaifenesin 100 Mg/5 Ml Oral Liqd PO 200 mg Q4H PRN Administration Cough Hydrocodone Bit/Homatropine Methylb 10 ml 12/12/20 13:52 Hydrocodone/Homatropine 5-1.5mg /5 Ml Oral Liqd Unit Dose PO Q6H PRN Cough Sodium Chloride 1,000 mls @ 50 mls/hr 12/12/20 10:45 Nacl 0.9% 1000 Ml IV DIRECT CEFERINO Lidocaine 20 ml 12/12/20 10:43 Lidocaine (2%) 20 Mg/1 Ml Vial 20 Ml Mdv INFILTRATI 12/12/20 20:00 ONCE NR Lidocaine HCl 20 ml 12/12/20 10:45 Lidocaine Viscous 2% 15 Ml Oral Liqd MM 12/12/20 20:00 PREOP NR Morphine Sulfate 2 mg 12/06/20 03:46 Morphine 2 Mg/1 Ml Inj IV Q4H PRN Pain, Moderate (4-6) Ondansetron HCl 4 mg 12/06/20 03:46 Ondansetron 4 Mg/2 Ml Inj IV Q8H PRN Nausea And Vomiting Penicillin G Benzathine 2.4 mil.units 12/10/20 15:00 12/10/20 14:49 Penicillin G Benzathine 1.2 Million Unit/2 Ml Inj IM 12/24/20 15:01 2.4 mil.units Q7D CEFERINO Administration Sodium Chloride 10 ml 12/06/20 10:00 12/12/20 09:43 Sodium Chloride 0.9% 10 Ml Flush Syringe IV 10 ml BID CEFERINO Administration Sodium Chloride 10 ml 12/06/20 03:46 Sodium Chloride 0.9% 10 Ml Flush Syringe IV PRN PRN LINE FLUSH Tenofovir Disoproxil Fumarate 300 mg 12/06/20 10:00 12/12/20 09:43 Tenofovir 300 Mg Tab PO Not Given QDAY CEFERINO
--- NOTE | 2020-12-12 16:49 | Progress Note ---
Assessment and Plan 35-year-old male with known history of HIV with unknown CD4 count presented to the emergency room complaining of shortness of breath and difficulty breathing of 2-3 day duration. Patient chest x-ray showed bilateral pneumonia. Patient admitted for pneumonia. Patient has bronchoscopy to day. Post bronchoscopy, patient stable. Patient alert and awake. Resting on 4L O2. O2 saturation 95%. No acute respiratory distress. Patient has no history of smoking, alcohol, or drug use. 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 No known drug allergies. Patient afebrile and has leukopenia. WBC count 2.9. Chest X-ray done on 12/06/20. Chest x-ray showed bilateral parenchymal disease, much greater on the right than the left, is again identified. Mild disease in the left upper lobe has improved. Post bronchoscopy chest xray 12/12/20 reported Extensive right lung parenchymal disease persists unchanged. Minimal disease persists on the left. No definite new disease. Bronchoscopy specimen results pending. Patient presently on penicillin-G, Bactrim, albuterol/ipratropium, lovanox, benzonatate. - Patient Problems (1) Acute respiratory failure Current Visit: Yes Status: Acute Plan to address problem: Patient on 4L O2. O2 saturation 95%. Albuterol/Ipratropium aerosol treatments. Continue s/c lovanox. (2) Bilateral pneumonia Current Visit: Yes Status: Acute Plan to address problem: Patient is on penicillin-G and bactrim. (3) Suspected COVID-19 virus infection Current Visit: Yes Status: Acute Plan to address problem: Negative COVID-19 serology. (4) HIV antibody positive Current Visit: No Status: Acute Plan to address problem: Management per ID. Subjective Date of service: 12/12/20 Principal diagnosis: Bilateral pneumonia Interval history: 35-year-old male with known history of HIV with unknown CD4 count presented to the emergency room complaining of shortness of breath and difficulty breathing of 2-3 day duration. Patient chest x-ray showed bilateral pneumonia. Patient admitted for pneumonia. Patient has bronchoscopy to day. Post bronchoscopy, patient stable. Patient alert and awake. Resting on 4L O2. O2 saturation 95%. No acute respiratory distress. Patient has no history of smoking, alcohol, or drug use. 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 No known drug allergies. Patient afebrile and has leukopenia. WBC count 2.9. Chest X-ray done on 12/06/20. Chest x-ray showed bilateral parenchymal disease, much greater on the right than the left, is again identified. Mild disease in the left upper lobe has improved. Post bronchoscopy chest xray 12/12/20 reported Extensive right lung parenchymal disease persists unchanged. Minimal disease persists on the left. No definite new disease. Bronchoscopy specimen results pending. Patient presently on penicillin-G, Bactrim, albuterol/ipratropium, lovanox, benzonatate. Objective Vital Signs - 12hr 12/12/20 12/12/20 12/12/20 08:20 08:30 11:30 Temperature 98.0 F Pulse Rate 85 Pulse Rate [ 80 Anterior Bilateral Throughout] Pulse Rate [ 88 Bilateral] Respiratory 16 Rate Respiratory 18 Rate [Anterior Bilateral Throughout] Respiratory 18 Rate [Bilateral ] Blood Pressure 123/84 Blood Pressure [Right] O2 Sat by Pulse 95 97 Oximetry 12/12/20 14:54 Temperature 97.6 F Pulse Rate 78 Pulse Rate [ Anterior Bilateral Throughout] Pulse Rate [ Bilateral] Respiratory 16 Rate Respiratory Rate [Anterior Bilateral Throughout] Respiratory Rate [Bilateral ] Blood Pressure Blood Pressure 90/50 [Right] O2 Sat by Pulse 92 Oximetry Constitutional: no acute distress, alert Eyes: non-icteric ENT: oropharynx moist Neck: supple, no lymphadenopathy, no JVD Effort: normal Ascultation: Bilateral: rales (R>L), rhonchi Percussion: Bilateral: not dull Cardiovascular: regular rate and rhythm Gastrointestinal: normoactive bowel sounds, soft, non-tender, non-distended Integumentary: rash (to legs) Extremities: no cyanosis, pulses normal, no ischemia or petechiae, edema (1+) Neurologic: non-focal exam, pupils equal and round, CN II-XII normal, motor strength normal and Psychiatric: mood appropriate CBC and BMP: 12/13/20 06:30 12/13/20 06:30 ABG, PT/INR, D-dimer: PT/INR, D-dimer PT 14.4 Sec. (12.2-14.9) 12/07/20 06:25 INR 1.13 (0.87-1.13) 12/07/20 06:25 D-Dimer 636.67 ng/mlDDU (0-234) H 12/06/20 01:50 Abnormal lab findings: Abnormal Labs 12/06/20 12/06/20 12/06/20 01:50 01:50 01:50 WBC 4.4 L Hgb 10.9 L Hct 34.2 L MCV 78 L MCH 25 L RDW 18.0 H Plt Count 494 H [place] % (Auto) 9.7 H Eos % (Auto) 7.1 H Lymph # (Auto) 1.0 L Seg Neutrophils # Abs Lymphs (Manual) INR D-Dimer Sodium 135 L Potassium BUN 8 L Glucose 102 H Calcium 7.7 L ALT 5 L Lactate Dehydrogenase 212 H C-Reactive Protein Albumin 2.8 L Lymph Enumerat CD4/CD8 % CD3 Cells Absolute CD3 Count % CD4 Cells Absolute CD4 Count Absolute CD8 Count Absolute CD19 Count Syphilis IgG Antibody HIV-1 RNA PCR copies/ml HIV-1 RNA (PCR) log 12/06/20 12/06/20 12/06/20 01:50 01:50 01:50 WBC Hgb Hct MCV MCH RDW Plt Count [place] % (Auto) Eos % (Auto) Lymph # (Auto) Seg Neutrophils # Abs Lymphs (Manual) INR 1.16 H D-Dimer 636.67 H Sodium Potassium BUN Glucose 103 H Calcium ALT Lactate Dehydrogenase 222 H C-Reactive Protein 3.90 H Albumin Lymph Enumerat CD4/CD8 % CD3 Cells Absolute CD3 Count % CD4 Cells Absolute CD4 Count Absolute CD8 Count Absolute CD19 Count Syphilis IgG Antibody HIV-1 RNA PCR copies/ml HIV-1 RNA (PCR) log 12/06/20 12/06/20 12/07/20 15:54 15:54 06:25 WBC 2.9 L Hgb 9.8 L Hct 30.7 L MCV 79 L MCH 25 L RDW 17.5 H Plt Count 484 H [place] % (Auto) 14.9 H Eos % (Auto) Lymph # (Auto) 0.8 L Seg Neutrophils # 1.7 L Abs Lymphs (Manual) 354 L INR D-Dimer Sodium Potassium BUN Glucose Calcium ALT Lactate Dehydrogenase C-Reactive Protein Albumin Lymph Enumerat CD4/CD8 0.37 L % CD3 Cells 39 L Absolute CD3 Count 139 L % CD4 Cells 10 L Absolute CD4 Count 35 L Absolute CD8 Count 94 L Absolute CD19 Count 20 L Syphilis IgG Antibody HIV-1 RNA PCR copies/ml 51 H HIV-1 RNA (PCR) log 1.71 H 12/07/20 12/07/20 12/08/20 06:25 14:36 08:37 WBC 2.9 L Hgb 11.2 L Hct 34.7 L MCV 80 L MCH 26 L RDW 17.9 H Plt Count 519 H [place] % (Auto) Eos % (Auto) Lymph # (Auto) Seg Neutrophils # Abs Lymphs (Manual) INR D-Dimer Sodium Potassium 3.3 L BUN Glucose 115 H Calcium 7.7 L ALT Lactate Dehydrogenase C-Reactive Protein Albumin Lymph Enumerat CD4/CD8 % CD3 Cells Absolute CD3 Count % CD4 Cells Absolute CD4 Count Absolute CD8 Count Absolute CD19 Count Syphilis IgG Antibody Reactive A HIV-1 RNA PCR copies/ml HIV-1 RNA (PCR) log 12/08/20 12/12/20 12/12/20 08:37 10:29 10:29 WBC 2.8 L Hgb 11.6 L Hct MCV 80 L MCH 25 L RDW 17.2 H Plt Count 588 H [place] % (Auto) 11.4 H Eos % (Auto) Lymph # (Auto) 0.8 L Seg Neutrophils # 1.5 L Abs Lymphs (Manual) INR D-Dimer Sodium 135 L Potassium 3.3 L BUN 8 L 7 L Glucose Calcium 8.0 L ALT Lactate Dehydrogenase C-Reactive Protein Albumin Lymph Enumerat CD4/CD8 % CD3 Cells Absolute CD3 Count % CD4 Cells Absolute CD4 Count Absolute CD8 Count Absolute CD19 Count Syphilis IgG Antibody HIV-1 RNA PCR copies/ml HIV-1 RNA (PCR) log Chest x-ray: report reviewed, image reviewed Additional Studies: Chest xray done 12/12/20 FINDINGS: Support devices: None Heart: Stable. Lungs/Pleura: Extensive right lung parenchymal disease persists unchanged. Minimal disease persists on the left. No definite new disease. IMPRESSION: 1. No significant change. Allied health notes reviewed: nursing
[2020-12-12] MEDS: ENOXAPARIN 40 MG/0.4 ML INJ SUB-Q SCH (22:40)
[2020-12-13] MEDS: BENZONATATE 100 MG CAP PO SCH ×3 (06:24→21:34)
[2020-12-13 07:11] LABS: Basophils % (Auto) 0.4 % (0.0-1.8); Eosinophils # (Auto) 0.1 K/mm3 (0.0-0.4); Hematocrit 31.7 % (35.5-45.6); Hemoglobin 10.1 gm/dl (11.8-15.2); Lymphocytes # (Auto) 0.7 K/mm3 (1.2-5.4); Lymphocytes % (Auto) 17.2 % (13.4-35.0); Mean Corpuscular HGB Conc 32 % (32-34); Mean Corpuscular Volume 78 fl (84-94); Monocytes # (Auto) 0.4 K/mm3 (0.0-0.8); Monocytes % (Auto) 8.8 % (0.0-7.3); Platelet Count 517 K/mm3 (140-440); Red Blood Count 4.04 M/mm3 (3.65-5.03); Red Cell Distribution Width 17.7 % (13.2-15.2)
[2020-12-13 07:30] LABS: Blood Urea Nitrogen 8 mg/dL (9-20); Calcium 8.1 mg/dL (8.4-10.2); Hemolysis Index 3
[2020-12-13 07:41] LABS: BUN/Creatinine Ratio 11
[2020-12-13] MEDS: IPRATROPIUM/ALBUTEROL SULFATE 3 ML AMPUL.NEB IH SCH ×3 (08:01→20:47)
[2020-12-13] MEDS: TENOFOVIR 300 MG TAB PO SCH (11:13)
[2020-12-13] MEDS: DOLUTEGRAVIR 50 MG TAB PO SCH (11:13)
[2020-12-13] MEDS: EMTRICITABINE 200 MG CAP PO SCH (11:13)
--- NOTE | 2020-12-13 12:04 | Progress Note ---
Assessment and Plan Assessment and plan: Assessment and Plan Assessment and plan: Patient is scheduled for bronchoscopy today Bilateral pneumonia Patient placed on empiric IV antibiotics. Procalcitonin is low, antibiotics DC'd Supportive care right hilar mass/ mediastinal lymphadenopathy Pulmonary following scheduled for bronchoscopy today 12/12/2020 N.p.o. status HIV antibody positive Unknown foot CD4 counts. Continue antiretroviral agent. Management per ID Hypoxia/requiring 2 L nasal cannula oxygen Secondary to the pneumonia. Evaluation for home oxygen at discharge. 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 Full code status Patient is a full code. Closely monitor the patient and adjust the management as needed Follow bronchoscopy findings follow BAL analysis and cultures Plan of care reviewed with the patient and his nurse Consultants and recommendations noted and appreciated Brief history 35-year-old male with known history of HIV with unknown CD4 count presenting to the emergency room today complaining of shortness of breath and difficulty breathing. Symptoms were said to have been ongoing for the past 2 to 3 days. Shortness of breath is worse on exertion. He denies any fever or chills, no chest pain, no nausea vomiting, no abdominal pain, no diarrhea, no headache or dizziness, no diaphoresis. Patient states that he tested positive for COVID-19 about a month ago but later tested negative about 2 weeks later. Upon arrival in the emergency room patient was hypoxic with O2 sats of 89% on room air. Chest x-ray reveals: Bilateral parenchymal disease,right greater than left, admitted with bilateral pneumonia with hypoxia. COVID-19 ruled out 12/06:Patient seen and examined today resting comfortably although still with shortness of breath on supine position reports cough. Previous imaging study did reveal mass in the hilum area previous documentation by pulmonary shows that patient had a bronchoscopy in 2019 that showed negative cytology and only fungal entities noted. Will obtain an echocardiogram as none has been obtained in this patient with recurrent shortness of breath and hypoxic respiratory failure with underlying cough in supine position. Will await ID input and also will consult pulmonary. Continue current oxygen management 12/07: Patient underwent follow-up testing today including recommendations by ID as noted below. Otherwise we will continue current management with antibiotics. It appears a fungal culture. ID was canceled but BAL done at that time grew normal shari. Will follow culture results at this time. Pulmonary input is appreciated. Anticipate discharge when symptomatic improvement is noted Covid test result is still pending. 12/11/2020; bronchoscopy tomorrow 12/12/2020 Patient n.p.o. from midnight, consultants recommendations noted and appreciated 12/12/2020; bronchoscopy scheduled for today Follow procedure findings, cultures 12/13/20 Patient is status post bronchoscopy yesterday. Patient denied any chest pain no shortness of breath We will follow the culture from BAL. Follow pulmonary recommendation Discharge plan when cleared by pulmonary. Continue penicillin G, neb treatment. History Interval history: Patient is seen and examined. Patient chart and medication reviewed Patient is doing better Patient is status post bronchoscopy yesterday . Patient denied any chest pain no shortness of breath no cough Vital signs are stable Hospitalist Physical - Constitutional Vitals: Temp Pulse Resp BP Pulse Ox 97.6 F 78 16 90/50 96 12/12/20 14:54 12/12/20 14:54 12/12/20 14:54 12/12/20 14:54 12/12/20 21:15 General appearance: Present: no acute distress, well-nourished HEART Score - HEART Score Troponin: Troponin T < 0.010 ng/mL (0.00-0.029) 12/06/20 01:50 Results - Labs CBC & Chem 7: 12/13/20 06:30 12/13/20 06:30 Labs: Laboratory Last Values WBC 4.2 K/mm3 (4.5-11.0) L 12/13/20 06:30 RBC 4.04 M/mm3 (3.65-5.03) 12/13/20 06:30 Hgb 10.1 gm/dl (11.8-15.2) L 12/13/20 06:30 Hct 31.7 % (35.5-45.6) L 12/13/20 06:30 MCV 78 fl (84-94) L 12/13/20 06:30 MCH 25 pg (28-32) L 12/13/20 06:30 MCHC 32 % (32-34) 12/13/20 06:30 RDW 17.7 % (13.2-15.2) H 12/13/20 06:30 Plt Count 517 K/mm3 (140-440) H 12/13/20 06:30 Lymph % (Auto) 17.2 % (13.4-35.0) 12/13/20 06:30 [place] % (Auto) 8.8 % (0.0-7.3) H 12/13/20 06:30 Eos % (Auto) 3.0 % (0.0-4.3) 12/13/20 06:30 Baso % (Auto) 0.4 % (0.0-1.8) 12/13/20 06:30 Lymph # (Auto) 0.7 K/mm3 (1.2-5.4) L 12/13/20 06:30 [place] # (Auto) 0.4 K/mm3 (0.0-0.8) 12/13/20 06:30 Eos # (Auto) 0.1 K/mm3 (0.0-0.4) 12/13/20 06:30 Baso # (Auto) 0.0 K/mm3 (0.0-0.1) 12/13/20 06:30 Seg Neutrophils % 70.6 % (40.0-70.0) H 12/13/20 06:30 Seg Neutrophils # 2.9 K/mm3 (1.8-7.7) 12/13/20 06:30 Abs Lymphs (Manual) 354 cells/uL (850-3900) L 12/06/20 15:54 PT 14.4 Sec. (12.2-14.9) 12/07/20 06:25 INR 1.13 (0.87-1.13) 12/07/20 06:25 APTT 36.5 Sec. (24.2-36.6) 12/06/20 01:50 D-Dimer 636.67 ng/mlDDU (0-234) H 12/06/20 01:50 Sodium 137 mmol/L (137-145) 12/13/20 06:30 Potassium 4.2 mmol/L (3.6-5.0) 12/13/20 06:30 Chloride 103.4 mmol/L (98-107) 12/13/20 06:30 Carbon Dioxide 26 mmol/L (22-30) 12/13/20 06:30 Anion Gap 12 mmol/L 12/13/20 06:30 BUN 8 mg/dL (9-20) L 12/13/20 06:30 Creatinine 0.7 mg/dL (0.8-1.3) L 12/13/20 06:30 Estimated GFR > 60 ml/min 12/13/20 06:30 BUN/Creatinine Ratio 11 % 12/13/20 06:30 Glucose 87 mg/dL (75-100) 12/13/20 06:30 Calcium 8.1 mg/dL (8.4-10.2) L 12/13/20 06:30 Ferritin 195.2 ng/mL (30.0-300.0) 12/06/20 01:50 Total Bilirubin 0.20 mg/dL (0.1-1.2) 12/06/20 01:50 AST 12 units/L (5-40) 12/06/20 01:50 ALT 5 units/L (7-56) L 12/06/20 01:50 Alkaline Phosphatase 55 units/L (35-129) 12/06/20 01:50 Lactate Dehydrogenase 212 units/L (91-180) H 12/06/20 01:50 Lactate Dehydrogenase 222 units/L (91-180) H 12/06/20 01:50 Troponin T < 0.010 ng/mL (0.00-0.029) 12/06/20 01:50 C-Reactive Protein 3.90 mg/dL (0.00-1.30) H 12/06/20 01:50 NT-Pro-B Natriuret Pep 98.86 pg/mL (0-450) 12/06/20 01:50 Total Protein 6.9 g/dL (6.3-8.2) 12/06/20 01:50 Albumin 2.8 g/dL (3.9-5) L 12/06/20 01:50 Albumin/Globulin Ratio 0.7 % 12/06/20 01:50 Procalcitonin 0.06 ng/mL (<0.15) 12/06/20 01:50 Lymph Enumerat CD4/CD8 0.37 (0.86-5.00) L 12/06/20 15:54 % CD3 Cells 39 % (57-85) L 12/06/20 15:54 Absolute CD3 Count 139 cells/uL (840-3060) L 12/06/20 15:54 % CD4 Cells 10 % (30-61) L 12/06/20 15:54 Absolute CD4 Count 35 cells/uL (490-1740) L 12/06/20 15:54 % CD8 Cells 27 % (12-42) 12/06/20 15:54 Absolute CD8 Count 94 cells/uL (180-1170) L 12/06/20 15:54 % CD19 Cells 6 % (6-29) 12/06/20 15:54 Absolute CD19 Count 20 cells/uL (110-660) L 12/06/20 15:54 Syphilis IgG Antibody Reactive (NonReactive) A 12/07/20 14:36 RPR Titer 1:2 12/07/20 14:36 Coronavirus (PCR) Negative (Negative) 12/06/20 09:50 HIV-1 RNA PCR copies/ml 51 Copies/mL H 12/06/20 15:54 HIV-1 RNA (PCR) log 1.71 Log cps/mL H 12/06/20 15:54 AFB Identification Negative 12/09/20 21:30 Fungal Id Prelim 12/08/20 08:23 Thakur/IV: Voiding Method Toilet Active Medications - Current Medications Current Medications: Generic Name Dose Route Start Last Admin Trade Name Freq PRN Reason Stop Dose Admin Acetaminophen 650 mg 12/06/20 03:46 12/07/20 22:00 Acetaminophen 325 Mg Tab PO 650 mg Q4H PRN Administration Pain MILD(1-3)/Fever >100.5/LIU Albuterol/Ipratropium 1 ampul 12/09/20 20:00 12/12/20 21:17 Ipratropium/Albuterol Sulfate 3 Ml Ampul.Neb IH Not Given TIDRT [facility] Benzonatate 100 mg 12/06/20 14:00 12/13/20 06:24 Benzonatate 100 Mg Cap PO 100 mg Q8HR CEFERINO Administration Emtricitabine 200 mg 12/06/20 10:00 12/13/20 11:13 Emtricitabine 200 Mg Cap PO 200 mg QDAY CEFERINO Administration Enoxaparin Sodium 40 mg 12/06/20 22:00 12/12/20 22:40 Enoxaparin 40 Mg/0.4 Ml Inj SUB-Q 40 mg QDAY@2200 CEFERINO Administration Protocol Guaifenesin 200 mg 12/07/20 21:29 12/09/20 17:58 Guaifenesin 100 Mg/5 Ml Oral Liqd PO 200 mg Q4H PRN Administration Cough Hydrocodone Bit/Homatropine Methylb 10 ml 12/12/20 13:52 Hydrocodone/Homatropine 5-1.5mg /5 Ml Oral Liqd Unit Dose PO Q6H PRN Cough Sodium Chloride 1,000 mls @ 50 mls/hr 12/12/20 10:45 Nacl 0.9% 1000 Ml IV DIRECT CEFERINO Morphine Sulfate 2 mg 12/06/20 03:46 Morphine 2 Mg/1 Ml Inj IV Q4H PRN Pain, Moderate (4-6) Ondansetron HCl 4 mg 12/06/20 03:46 Ondansetron 4 Mg/2 Ml Inj IV Q8H PRN Nausea And Vomiting Penicillin G Benzathine 2.4 mil.units 12/10/20 15:00 12/10/20 14:49 Penicillin G Benzathine 1.2 Million Unit/2 Ml Inj IM 12/24/20 15:01 2.4 mil.units Q7D CEFERINO Administration Sodium Chloride 10 ml 12/06/20 10:00 12/13/20 11:14 Sodium Chloride 0.9% 10 Ml Flush Syringe IV 10 ml BID CEFERINO Administration Sodium Chloride 10 ml 12/06/20 03:46 Sodium Chloride 0.9% 10 Ml Flush Syringe IV PRN PRN LINE FLUSH Tenofovir Disoproxil Fumarate 300 mg 12/06/20 10:00 12/13/20 11:13 Tenofovir 300 Mg Tab PO 300 mg QDAY CEFERINO Administration Nutrition/Malnutrition Assess - Dietary Evaluation Nutrition/Malnutrition Findings: Nutrition Notes Start: 12/13/20 10:03 Freq: Status: Active Protocol: Document 12/13/20 10:03 AT (Rec: 12/13/20 10:05 AT [id number]) Co-Sign 12/13/20 10:03 CW Nutrition Notes Need for Assessment generated from: LOS Current Diagnosis Respiratory Failure Other Pertinent Diagnosis HIV, SOB, bilat pneu, COVID-19 (-) Current Diet Regular Diet - Malnutrition Assessment Minimum of two criteria: No - Attestation Statement I have reviewed and agreed w/ Malnutrition eval & tx plan: Yes
--- NOTE | 2020-12-13 12:48 | Progress Note ---
Assessment and Plan Cultures: Previous chart and cultures reviewed. 12/06/2020 blood culture: no growth 12/06/2020 serum cryptococcal antigen: Negative 12/06/2020 fungal blood culture: In process 12/07/2020 sputum culture: Oral contamination Syphilis IgG positive, 12/07/2020 RPR titer: 1:2 12/06/2020 HIV RNA PCR: 51 12/08/2020 sputum smear for fungus and AFB: Negative A/P: 35-year-old male with HIV, recent admission in October 2020 with COVID-19 was admitted to the hospital with complaints of cough and shortness of breath: #Bilateral pneumonia, worse on right compared to left. This is chronic and has been present since 2019. Underwent a bronchoscopy by Dr. Ardon in October 2019. BAL culture grew usual respiratory shari, it seems fungal culture got canceled. Fungal stain was positive for hyphae and spores, negative for PJP. His CT scan in August 2020 showed a persistent masslike consolidation in the right hilar region. Repeat CT showed right hilar mass with infiltrates and mediastinal ly mphadenopathy. #Splenic hypodensities noted on previous CT scan. Splenic lesions appear i mproved on CT scan. Also seen was inguinal and retroperitoneal lymphadenopathy. #HIV: Compliant with Biktarvy. Viral load remains low, CD4 count 35, 10%. #Bilateral lower extremity purplish lesions: These were biopsied by dermatology outpatient, patient did not follow-up to get the results. 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 Treat with benzathine penicillin weekly x3 #Leukopenia, reactive thrombocytosis Recs: -s/p transbronchial biopsy for histopath + for fungal, AFB culture, BAL for fungal and AFB cultures -f/u AFB blood culture, fungal blood culture, Aspergillus galactomannan, histoplasma and blasto urinary antigens -Continue Biktarvy, therapeutic interchange to TDF, emtricitabine, dolutegravir as per hospital formulary -benzathine penicillin weekly x 3 for late latent syphilis. got 1 dose 12/10/2020 -f/u outside derm biopsy results -will add PO bactrim DS 1 tab daily for OI prophylaxis León Velásquez MD, FACP [facility] ([facility] O: [phone] F: [phone] Subjective Date of service: 12/13/20 Principal diagnosis: Bilateral pneumonia Interval history: No fever. No new complaints. Underwent bronch yesterday. Objective - Exam Narrative Exam: Physical Exam: Constitutional: Alert, cooperative. No acute distress Head, Ears, Nose: Normocephalic, atraumatic. External ears, nose normal Eyes: Conjunctivae/corneas clear. No icterus. No ptosis. Neck: Supple, no meningeal signs Cardiovascular: S1, S2 normal. Respiratory: AE fair b/l GI: Soft, non-tender; bowel sounds normal. No peritoneal signs Musculoskeletal: No pedal edema, no cyanosis. Skin: b/L LE with purplish lesions Hem/Lymphatic: No palpable cervical or supraclavicular nodes. No lymphangitis Psych: Mood ok. Affect normal Neurological: Awake, alert, oriented. No gross abnormality - Constitutional Vitals: Vital Signs Temp Pulse Resp BP Pulse Ox 98.0 F 89 16 100/56 94 12/13/20 04:12 12/12/20 21:28 12/13/20 04:12 12/13/20 04:12 12/13/20 12:04 Temperature -Last 24 Hours Temperature 98.0 F Temperature 98.2 F Temperature 97.6 F Temperature 98.2 F - Labs CBC & Chem 7: 12/13/20 06:30 12/13/20 06:30 Labs: Abnormal lab results 12/06/20 12/13/20 12/13/20 Range/Units 15:54 06:30 06:30 WBC 4.2 L (4.5-11.0) K/mm3 Hgb 10.1 L (11.8-15.2) gm/dl Hct 31.7 L (35.5-45.6) % MCV 78 L (84-94) fl MCH 25 L (28-32) pg RDW 17.7 H (13.2-15.2) % Plt Count 517 H (140-440) K/mm3 [place] % (Auto) 8.8 H (0.0-7.3) % Lymph # (Auto) 0.7 L (1.2-5.4) K/mm3 Seg Neutrophils % 70.6 H (40.0-70.0) % Abs Lymphs (Manual) 354 L (850-3900) cells/uL BUN 8 L (9-20) mg/dL Creatinine 0.7 L (0.8-1.3) mg/dL Calcium 8.1 L (8.4-10.2) mg/dL Lymph Enumerat CD4/CD8 0.37 L (0.86-5.00) % CD3 Cells 39 L (57-85) % Absolute CD3 Count 139 L (840-3060) cells/uL % CD4 Cells 10 L (30-61) % Absolute CD4 Count 35 L (490-1740) cells/uL Absolute CD8 Count 94 L (180-1170) cells/uL Absolute CD19 Count 20 L (110-660) cells/uL
[2020-12-13] MEDS: SULFAMETHOXAZOLE/TRIMETHOPRIM 800/160MG DS TAB PO SCH (13:13)
--- NOTE | 2020-12-13 13:40 | Progress Note ---
Assessment and Plan Acute hypoxemic respiratory failure. Bilateral pneumonia, chronic. Human immunodeficiency virus positive. The patient under investigation for COVID-19 infection. Leukopenia. Anemia that is microcytic. - follow bronchoscopy studies - discontinue isolation once 3 negative AFB sputum smears or negative bronch wash / BAL smears - continue care as below otherwise; - continue to wean supplemental oxygen to keep O2 sats > 92% - continue Bronchodilators (JJ) with pulm hygiene per RT - continue to avoid nephrotoxins, renally dose all medications - mobility protocols to prevent pressure ulcers - PT/OT as tolerated - Wound care per RN/WCT - accuchecks with glycemic control per SSI for target blood glucose < 180 mg/dL - tobacco abstinence strongly counseled at the bedside - home oxygen evaluation at discharge - GI & VTE prophylaxis - Flu & pneumovax per protocol - Pulmonary out patient follow up for PFTs and optimization of respiratory status - prn analgesia per pain score - COVID-19 test negative - continue other care per attending / other consultants - Continue airborne isolation till AFB cleared ... re-evaluate in am & prn Subjective Date of service: 12/13/20 Principal diagnosis: Ac hypoxemic resp failure; Pneumonia; HIV+ve; PUI COVID-19; Anemia Interval history: Patient is seen today for: Acute hypoxemic respiratory failure; Bilateral pneumonia; HIV+ve; PUI COVID-19; Anemia Seen and examined at bedside; 24hour events reviewed; nursing and respiratory care staff consulted; no adverse overnight events reported to me; resting peacefully in bed; hemoptysis post bronchoscopy has resolved; denies chest pain or acute SOB; afebrile Objective Vital Signs - 12hr 12/13/20 12/13/20 12/13/20 04:12 08:00 12:04 Temperature 98.0 F Pulse Rate Respiratory 16 Rate Blood Pressure 100/56 O2 Sat by Pulse 95 94 Oximetry 12/13/20 13:31 Temperature 97.9 F Pulse Rate 75 Respiratory 19 Rate Blood Pressure 98/66 O2 Sat by Pulse 100 Oximetry Constitutional: no acute distress, alert, other (appears weak) Eyes: non-icteric ENT: oropharynx moist Neck: supple, no lymphadenopathy, no JVD Effort: normal Ascultation: Bilateral: rales (R>L) Percussion: Bilateral: not dull Cardiovascular: regular rate and rhythm Gastrointestinal: normoactive bowel sounds, soft, non-tender, non-distended Integumentary: rash (to legs) Extremities: no cyanosis, pulses normal, no ischemia or petechiae, edema (1+) Neurologic: non-focal exam, pupils equal and round, CN II-XII normal, motor strength normal and Psychiatric: mood appropriate, affect normal CBC and BMP: 12/13/20 06:30 12/13/20 06:30 ABG, PT/INR, D-dimer: PT/INR, D-dimer PT 14.4 Sec. (12.2-14.9) 12/07/20 06:25 INR 1.13 (0.87-1.13) 12/07/20 06:25 D-Dimer 636.67 ng/mlDDU (0-234) H 12/06/20 01:50 Abnormal lab findings: Abnormal Labs 12/06/20 12/06/20 12/06/20 01:50 01:50 01:50 WBC 4.4 L Hgb 10.9 L Hct 34.2 L MCV 78 L MCH 25 L RDW 18.0 H Plt Count 494 H [place] % (Auto) 9.7 H Eos % (Auto) 7.1 H Lymph # (Auto) 1.0 L Seg Neutrophils % Seg Neutrophils # Abs Lymphs (Manual) INR D-Dimer Sodium 135 L Potassium BUN 8 L Creatinine Glucose 102 H Calcium 7.7 L ALT 5 L Lactate Dehydrogenase 212 H C-Reactive Protein Albumin 2.8 L Lymph Enumerat CD4/CD8 % CD3 Cells Absolute CD3 Count % CD4 Cells Absolute CD4 Count Absolute CD8 Count Absolute CD19 Count Syphilis IgG Antibody HIV-1 RNA PCR copies/ml HIV-1 RNA (PCR) log 12/06/20 12/06/20 12/06/20 01:50 01:50 01:50 WBC Hgb Hct MCV MCH RDW Plt Count [place] % (Auto) Eos % (Auto) Lymph # (Auto) Seg Neutrophils % Seg Neutrophils # Abs Lymphs (Manual) INR 1.16 H D-Dimer 636.67 H Sodium Potassium BUN Creatinine Glucose 103 H Calcium ALT Lactate Dehydrogenase 222 H C-Reactive Protein 3.90 H Albumin Lymph Enumerat CD4/CD8 % CD3 Cells Absolute CD3 Count % CD4 Cells Absolute CD4 Count Absolute CD8 Count Absolute CD19 Count Syphilis IgG Antibody HIV-1 RNA PCR copies/ml HIV-1 RNA (PCR) log 12/06/20 12/06/20 12/07/20 15:54 15:54 06:25 WBC 2.9 L Hgb 9.8 L Hct 30.7 L MCV 79 L MCH 25 L RDW 17.5 H Plt Count 484 H [place] % (Auto) 14.9 H Eos % (Auto) Lymph # (Auto) 0.8 L Seg Neutrophils % Seg Neutrophils # 1.7 L Abs Lymphs (Manual) 354 L INR D-Dimer Sodium Potassium BUN Creatinine Glucose Calcium ALT Lactate Dehydrogenase C-Reactive Protein Albumin Lymph Enumerat CD4/CD8 0.37 L % CD3 Cells 39 L Absolute CD3 Count 139 L % CD4 Cells 10 L Absolute CD4 Count 35 L Absolute CD8 Count 94 L Absolute CD19 Count 20 L Syphilis IgG Antibody HIV-1 RNA PCR copies/ml 51 H HIV-1 RNA (PCR) log 1.71 H 12/07/20 12/07/20 12/08/20 06:25 14:36 08:37 WBC 2.9 L Hgb 11.2 L Hct 34.7 L MCV 80 L MCH 26 L RDW 17.9 H Plt Count 519 H [place] % (Auto) Eos % (Auto) Lymph # (Auto) Seg Neutrophils % Seg Neutrophils # Abs Lymphs (Manual) INR D-Dimer Sodium Potassium 3.3 L BUN Creatinine Glucose 115 H Calcium 7.7 L ALT Lactate Dehydrogenase C-Reactive Protein Albumin Lymph Enumerat CD4/CD8 % CD3 Cells Absolute CD3 Count % CD4 Cells Absolute CD4 Count Absolute CD8 Count Absolute CD19 Count Syphilis IgG Antibody Reactive A HIV-1 RNA PCR copies/ml HIV-1 RNA (PCR) log 12/08/20 12/12/20 12/12/20 08:37 10:29 10:29 WBC 2.8 L Hgb 11.6 L Hct MCV 80 L MCH 25 L RDW 17.2 H Plt Count 588 H [place] % (Auto) 11.4 H Eos % (Auto) Lymph # (Auto) 0.8 L Seg Neutrophils % Seg Neutrophils # 1.5 L Abs Lymphs (Manual) INR D-Dimer Sodium 135 L Potassium 3.3 L BUN 8 L 7 L Creatinine Glucose Calcium 8.0 L ALT Lactate Dehydrogenase C-Reactive Protein Albumin Lymph Enumerat CD4/CD8 % CD3 Cells Absolute CD3 Count % CD4 Cells Absolute CD4 Count Absolute CD8 Count Absolute CD19 Count Syphilis IgG Antibody HIV-1 RNA PCR copies/ml HIV-1 RNA (PCR) log 12/13/20 12/13/20 06:30 06:30 WBC 4.2 L Hgb 10.1 L Hct 31.7 L MCV 78 L MCH 25 L RDW 17.7 H Plt Count 517 H [place] % (Auto) 8.8 H Eos % (Auto) Lymph # (Auto) 0.7 L Seg Neutrophils % 70.6 H Seg Neutrophils # Abs Lymphs (Manual) INR D-Dimer Sodium Potassium BUN 8 L Creatinine 0.7 L Glucose Calcium 8.1 L ALT Lactate Dehydrogenase C-Reactive Protein Albumin Lymph Enumerat CD4/CD8 % CD3 Cells Absolute CD3 Count % CD4 Cells Absolute CD4 Count Absolute CD8 Count Absolute CD19 Count Syphilis IgG Antibody HIV-1 RNA PCR copies/ml HIV-1 RNA (PCR) log Chest x-ray: image reviewed (no post procedure pneumothorax) Allied health notes reviewed: nursing
[2020-12-13] MEDS: ENOXAPARIN 40 MG/0.4 ML INJ SUB-Q SCH (21:34)
[2020-12-14] MEDS: BENZONATATE 100 MG CAP PO SCH ×3 (05:50→21:41)
[2020-12-14] MEDS: IPRATROPIUM/ALBUTEROL SULFATE 3 ML AMPUL.NEB IH SCH ×3 (07:46→21:56)
[2020-12-14] MEDS: EMTRICITABINE 200 MG CAP PO SCH (09:31)
[2020-12-14] MEDS: TENOFOVIR 300 MG TAB PO SCH (09:32)
[2020-12-14] MEDS: DOLUTEGRAVIR 50 MG TAB PO SCH (09:33)
[2020-12-14] MEDS: SULFAMETHOXAZOLE/TRIMETHOPRIM 800/160MG DS TAB PO SCH (09:52)
--- NOTE | 2020-12-14 10:09 | Progress Note ---
Assessment and Plan Acute hypoxemic respiratory failure. Bilateral pneumonia, chronic. Human immunodeficiency virus positive. The patient under investigation for COVID-19 infection. Leukopenia. Anemia that is microcytic. - follow bronchoscopy studies - discontinue isolation once 3 negative AFB sputum smears or negative bronch wash / BAL smears - continue care as below otherwise; - continue to wean supplemental oxygen to keep O2 sats > 92% - continue Bronchodilators (JJ) with pulm hygiene per RT - continue to avoid nephrotoxins, renally dose all medications - mobility protocols to prevent pressure ulcers - PT/OT as tolerated - Wound care per RN/WCT - accuchecks with glycemic control per SSI for target blood glucose < 180 mg/dL - tobacco abstinence strongly counseled at the bedside - home oxygen evaluation at discharge - GI & VTE prophylaxis - Flu & pneumovax per protocol - Pulmonary out patient follow up for PFTs and optimization of respiratory status - prn analgesia per pain score - COVID-19 test negative - continue other care per attending / other consultants - Continue airborne isolation till AFB cleared ... re-evaluate in am & prn Subjective Date of service: 12/14/20 Principal diagnosis: Ac hypoxemic resp failure; Pneumonia; HIV+ve; PUI COVID-19; Anemia Interval history: Patient is seen today for: Acute hypoxemic respiratory failure; Bilateral pneumonia; HIV+ve; PUI COVID-19; Anemia Seen and examined at bedside; 24hour events reviewed; nursing and respiratory care staff consulted; no adverse overnight events reported to me; resting peacefully in bed; denies chest pain or hemoptysis Objective Vital Signs - 12hr 12/14/20 04:39 Temperature 98.4 F Pulse Rate 89 Respiratory 18 Rate Blood Pressure 98/63 O2 Sat by Pulse 90 Oximetry Constitutional: no acute distress, alert, other (appears weak) Eyes: non-icteric ENT: oropharynx moist Neck: supple, no lymphadenopathy, no JVD Effort: normal Ascultation: Bilateral: rales (R>L) Percussion: Bilateral: not dull Cardiovascular: regular rate and rhythm Gastrointestinal: normoactive bowel sounds, soft, non-tender, non-distended Integumentary: rash (to legs) Extremities: no cyanosis, pulses normal, no ischemia or petechiae, edema (1+) Neurologic: non-focal exam, pupils equal and round, CN II-XII normal, motor strength normal and Psychiatric: mood appropriate, affect normal CBC and BMP: 12/13/20 06:30 12/13/20 06:30 ABG, PT/INR, D-dimer: PT/INR, D-dimer PT 14.4 Sec. (12.2-14.9) 12/07/20 06:25 INR 1.13 (0.87-1.13) 12/07/20 06:25 D-Dimer 636.67 ng/mlDDU (0-234) H 12/06/20 01:50 Abnormal lab findings: Abnormal Labs 12/06/20 12/06/20 12/06/20 01:50 01:50 01:50 WBC 4.4 L Hgb 10.9 L Hct 34.2 L MCV 78 L MCH 25 L RDW 18.0 H Plt Count 494 H [place] % (Auto) 9.7 H Eos % (Auto) 7.1 H Lymph # (Auto) 1.0 L Seg Neutrophils % Seg Neutrophils # Abs Lymphs (Manual) INR D-Dimer Sodium 135 L Potassium BUN 8 L Creatinine Glucose 102 H Calcium 7.7 L ALT 5 L Lactate Dehydrogenase 212 H C-Reactive Protein Albumin 2.8 L Lymph Enumerat CD4/CD8 % CD3 Cells Absolute CD3 Count % CD4 Cells Absolute CD4 Count Absolute CD8 Count Absolute CD19 Count Syphilis IgG Antibody HIV-1 RNA PCR copies/ml HIV-1 RNA (PCR) log 12/06/20 12/06/20 12/06/20 01:50 01:50 01:50 WBC Hgb Hct MCV MCH RDW Plt Count [place] % (Auto) Eos % (Auto) Lymph # (Auto) Seg Neutrophils % Seg Neutrophils # Abs Lymphs (Manual) INR 1.16 H D-Dimer 636.67 H Sodium Potassium BUN Creatinine Glucose 103 H Calcium ALT Lactate Dehydrogenase 222 H C-Reactive Protein 3.90 H Albumin Lymph Enumerat CD4/CD8 % CD3 Cells Absolute CD3 Count % CD4 Cells Absolute CD4 Count Absolute CD8 Count Absolute CD19 Count Syphilis IgG Antibody HIV-1 RNA PCR copies/ml HIV-1 RNA (PCR) log 12/06/20 12/06/20 12/07/20 15:54 15:54 06:25 WBC 2.9 L Hgb 9.8 L Hct 30.7 L MCV 79 L MCH 25 L RDW 17.5 H Plt Count 484 H [place] % (Auto) 14.9 H Eos % (Auto) Lymph # (Auto) 0.8 L Seg Neutrophils % Seg Neutrophils # 1.7 L Abs Lymphs (Manual) 354 L INR D-Dimer Sodium Potassium BUN Creatinine Glucose Calcium ALT Lactate Dehydrogenase C-Reactive Protein Albumin Lymph Enumerat CD4/CD8 0.37 L % CD3 Cells 39 L Absolute CD3 Count 139 L % CD4 Cells 10 L Absolute CD4 Count 35 L Absolute CD8 Count 94 L Absolute CD19 Count 20 L Syphilis IgG Antibody HIV-1 RNA PCR copies/ml 51 H HIV-1 RNA (PCR) log 1.71 H 12/07/20 12/07/20 12/08/20 06:25 14:36 08:37 WBC 2.9 L Hgb 11.2 L Hct 34.7 L MCV 80 L MCH 26 L RDW 17.9 H Plt Count 519 H [place] % (Auto) Eos % (Auto) Lymph # (Auto) Seg Neutrophils % Seg Neutrophils # Abs Lymphs (Manual) INR D-Dimer Sodium Potassium 3.3 L BUN Creatinine Glucose 115 H Calcium 7.7 L ALT Lactate Dehydrogenase C-Reactive Protein Albumin Lymph Enumerat CD4/CD8 % CD3 Cells Absolute CD3 Count % CD4 Cells Absolute CD4 Count Absolute CD8 Count Absolute CD19 Count Syphilis IgG Antibody Reactive A HIV-1 RNA PCR copies/ml HIV-1 RNA (PCR) log 12/08/20 12/12/20 12/12/20 08:37 10:29 10:29 WBC 2.8 L Hgb 11.6 L Hct MCV 80 L MCH 25 L RDW 17.2 H Plt Count 588 H [place] % (Auto) 11.4 H Eos % (Auto) Lymph # (Auto) 0.8 L Seg Neutrophils % Seg Neutrophils # 1.5 L Abs Lymphs (Manual) INR D-Dimer Sodium 135 L Potassium 3.3 L BUN 8 L 7 L Creatinine Glucose Calcium 8.0 L ALT Lactate Dehydrogenase C-Reactive Protein Albumin Lymph Enumerat CD4/CD8 % CD3 Cells Absolute CD3 Count % CD4 Cells Absolute CD4 Count Absolute CD8 Count Absolute CD19 Count Syphilis IgG Antibody HIV-1 RNA PCR copies/ml HIV-1 RNA (PCR) log 12/13/20 12/13/20 06:30 06:30 WBC 4.2 L Hgb 10.1 L Hct 31.7 L MCV 78 L MCH 25 L RDW 17.7 H Plt Count 517 H [place] % (Auto) 8.8 H Eos % (Auto) Lymph # (Auto) 0.7 L Seg Neutrophils % 70.6 H Seg Neutrophils # Abs Lymphs (Manual) INR D-Dimer Sodium Potassium BUN 8 L Creatinine 0.7 L Glucose Calcium 8.1 L ALT Lactate Dehydrogenase C-Reactive Protein Albumin Lymph Enumerat CD4/CD8 % CD3 Cells Absolute CD3 Count % CD4 Cells Absolute CD4 Count Absolute CD8 Count Absolute CD19 Count Syphilis IgG Antibody HIV-1 RNA PCR copies/ml HIV-1 RNA (PCR) log Allied health notes reviewed: nursing
--- NOTE | 2020-12-14 12:09 | Progress Note ---
Assessment and Plan Assessment and plan: Assessment and Plan Assessment and plan: Patient is scheduled for bronchoscopy today Bilateral pneumonia Patient placed on empiric IV antibiotics. Procalcitonin is low, antibiotics DC'd Supportive care right hilar mass/ mediastinal lymphadenopathy Pulmonary following scheduled for bronchoscopy today 12/12/2020 N.p.o. status HIV antibody positive Unknown foot CD4 counts. Continue antiretroviral agent. Management per ID Hypoxia/requiring 2 L nasal cannula oxygen Secondary to the pneumonia. Evaluation for home oxygen at discharge. 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 Full code status Patient is a full code. Closely monitor the patient and adjust the management as needed Follow bronchoscopy findings follow BAL analysis and cultures Plan of care reviewed with the patient and his nurse Consultants and recommendations noted and appreciated Brief history 35-year-old male with known history of HIV with unknown CD4 count presenting to the emergency room today complaining of shortness of breath and difficulty breathing. Symptoms were said to have been ongoing for the past 2 to 3 days. Shortness of breath is worse on exertion. He denies any fever or chills, no chest pain, no nausea vomiting, no abdominal pain, no diarrhea, no headache or dizziness, no diaphoresis. Patient states that he tested positive for COVID-19 about a month ago but later tested negative about 2 weeks later. Upon arrival in the emergency room patient was hypoxic with O2 sats of 89% on room air. Chest x-ray reveals: Bilateral parenchymal disease,right greater than left, admitted with bilateral pneumonia with hypoxia. COVID-19 ruled out 12/06:Patient seen and examined today resting comfortably although still with shortness of breath on supine position reports cough. Previous imaging study did reveal mass in the hilum area previous documentation by pulmonary shows that patient had a bronchoscopy in 2019 that showed negative cytology and only fungal entities noted. Will obtain an echocardiogram as none has been obtained in this patient with recurrent shortness of breath and hypoxic respiratory failure with underlying cough in supine position. Will await ID input and also will consult pulmonary. Continue current oxygen management 12/07: Patient underwent follow-up testing today including recommendations by ID as noted below. Otherwise we will continue current management with antibiotics. It appears a fungal culture. ID was canceled but BAL done at that time grew normal shari. Will follow culture results at this time. Pulmonary input is appreciated. Anticipate discharge when symptomatic improvement is noted Covid test result is still pending. 12/11/2020; bronchoscopy tomorrow 12/12/2020 Patient n.p.o. from midnight, consultants recommendations noted and appreciated 12/12/2020; bronchoscopy scheduled for today Follow procedure findings, cultures 12/13/20 Patient is status post bronchoscopy yesterday. Patient denied any chest pain no shortness of breath We will follow the culture from BAL. Follow pulmonary recommendation Discharge plan when cleared by pulmonary. Continue penicillin G, neb treatment. 12/14/20 Patient is doing better. No shortness of breath no chest pain. No cough We will follow the culture for fungal AFB, BAL for fungal and AFB culture Continue antibiotic benzathine penicillin weekly x 3 for latent syphilis . Continue antiretroviral as per ID and pulmonary recommendation. Continue current management. History Interval history: Patient is seen and examined. Patient chart and medication reviewed Patient is doing better. Patient denied any chest pain no shortness of breath no cough Vital signs are stable Hospitalist Physical - Constitutional Vitals: Temp Pulse Resp BP Pulse Ox 98.4 F 72 18 98/63 93 12/14/20 04:39 12/14/20 07:45 12/14/20 07:45 12/14/20 04:39 12/14/20 07:45 General appearance: Present: no acute distress, well-nourished HEART Score - HEART Score Troponin: Troponin T < 0.010 ng/mL (0.00-0.029) 12/06/20 01:50 Results - Labs CBC & Chem 7: 12/13/20 06:30 12/13/20 06:30 Labs: Laboratory Last Values WBC 4.2 K/mm3 (4.5-11.0) L 12/13/20 06:30 RBC 4.04 M/mm3 (3.65-5.03) 12/13/20 06:30 Hgb 10.1 gm/dl (11.8-15.2) L 12/13/20 06:30 Hct 31.7 % (35.5-45.6) L 12/13/20 06:30 MCV 78 fl (84-94) L 12/13/20 06:30 MCH 25 pg (28-32) L 12/13/20 06:30 MCHC 32 % (32-34) 12/13/20 06:30 RDW 17.7 % (13.2-15.2) H 12/13/20 06:30 Plt Count 517 K/mm3 (140-440) H 12/13/20 06:30 Lymph % (Auto) 17.2 % (13.4-35.0) 12/13/20 06:30 Power % (Auto) 8.8 % (0.0-7.3) H 12/13/20 06:30 Eos % (Auto) 3.0 % (0.0-4.3) 12/13/20 06:30 Baso % (Auto) 0.4 % (0.0-1.8) 12/13/20 06:30 Lymph # (Auto) 0.7 K/mm3 (1.2-5.4) L 12/13/20 06:30 Power # (Auto) 0.4 K/mm3 (0.0-0.8) 12/13/20 06:30 Eos # (Auto) 0.1 K/mm3 (0.0-0.4) 12/13/20 06:30 Baso # (Auto) 0.0 K/mm3 (0.0-0.1) 12/13/20 06:30 Seg Neutrophils % 70.6 % (40.0-70.0) H 12/13/20 06:30 Seg Neutrophils # 2.9 K/mm3 (1.8-7.7) 12/13/20 06:30 Abs Lymphs (Manual) 354 cells/uL (850-3900) L 12/06/20 15:54 PT 14.4 Sec. (12.2-14.9) 12/07/20 06:25 INR 1.13 (0.87-1.13) 12/07/20 06:25 APTT 36.5 Sec. (24.2-36.6) 12/06/20 01:50 D-Dimer 636.67 ng/mlDDU (0-234) H 12/06/20 01:50 Sodium 137 mmol/L (137-145) 12/13/20 06:30 Potassium 4.2 mmol/L (3.6-5.0) 12/13/20 06:30 Chloride 103.4 mmol/L (98-107) 12/13/20 06:30 Carbon Dioxide 26 mmol/L (22-30) 12/13/20 06:30 Anion Gap 12 mmol/L 12/13/20 06:30 BUN 8 mg/dL (9-20) L 12/13/20 06:30 Creatinine 0.7 mg/dL (0.8-1.3) L 12/13/20 06:30 Estimated GFR > 60 ml/min 12/13/20 06:30 BUN/Creatinine Ratio 11 % 12/13/20 06:30 Glucose 87 mg/dL (75-100) 12/13/20 06:30 Calcium 8.1 mg/dL (8.4-10.2) L 12/13/20 06:30 Ferritin 195.2 ng/mL (30.0-300.0) 12/06/20 01:50 Total Bilirubin 0.20 mg/dL (0.1-1.2) 12/06/20 01:50 AST 12 units/L (5-40) 12/06/20 01:50 ALT 5 units/L (7-56) L 12/06/20 01:50 Alkaline Phosphatase 55 units/L (35-129) 12/06/20 01:50 Lactate Dehydrogenase 212 units/L (91-180) H 12/06/20 01:50 Lactate Dehydrogenase 222 units/L (91-180) H 12/06/20 01:50 Troponin T < 0.010 ng/mL (0.00-0.029) 12/06/20 01:50 C-Reactive Protein 3.90 mg/dL (0.00-1.30) H 12/06/20 01:50 NT-Pro-B Natriuret Pep 98.86 pg/mL (0-450) 12/06/20 01:50 Total Protein 6.9 g/dL (6.3-8.2) 12/06/20 01:50 Albumin 2.8 g/dL (3.9-5) L 12/06/20 01:50 Albumin/Globulin Ratio 0.7 % 12/06/20 01:50 Procalcitonin 0.06 ng/mL (<0.15) 12/06/20 01:50 Lymph Enumerat CD4/CD8 0.37 (0.86-5.00) L 12/06/20 15:54 % CD3 Cells 39 % (57-85) L 12/06/20 15:54 Absolute CD3 Count 139 cells/uL (840-3060) L 12/06/20 15:54 % CD4 Cells 10 % (30-61) L 12/06/20 15:54 Absolute CD4 Count 35 cells/uL (490-1740) L 12/06/20 15:54 % CD8 Cells 27 % (12-42) 12/06/20 15:54 Absolute CD8 Count 94 cells/uL (180-1170) L 12/06/20 15:54 % CD19 Cells 6 % (6-29) 12/06/20 15:54 Absolute CD19 Count 20 cells/uL (110-660) L 12/06/20 15:54 Syphilis IgG Antibody Reactive (NonReactive) A 12/07/20 14:36 RPR Titer 1:2 12/07/20 14:36 Coronavirus (PCR) Negative (Negative) 12/06/20 09:50 HIV-1 RNA PCR copies/ml 51 Copies/mL H 12/06/20 15:54 HIV-1 RNA (PCR) log 1.71 Log cps/mL H 12/06/20 15:54 AFB Identification Negative 12/09/20 21:30 Fungal Id Prelim 12/08/20 08:23 Microbiology: Microbiology 12/06/20 15:54 Peripheral/Venous Blood Fungal Culture - Preliminary No Fungus Isolated At 1 week Thakur/IV: Voiding Method Urinal Active Medications - Current Medications Current Medications: Generic Name Dose Route Start Last Admin Trade Name Freq PRN Reason Stop Dose Admin Acetaminophen 650 mg 12/06/20 03:46 12/07/20 22:00 Acetaminophen 325 Mg Tab PO 650 mg Q4H PRN Administration Pain MILD(1-3)/Fever >100.5/LIU Albuterol/Ipratropium 1 ampul 12/09/20 20:00 12/14/20 07:46 Ipratropium/Albuterol Sulfate 3 Ml Ampul.Neb IH 1 ampul TIDRT CEFERINO Administration Benzonatate 100 mg 12/06/20 14:00 12/14/20 05:50 Benzonatate 100 Mg Cap PO 100 mg Q8HR CEFERINO Administration Emtricitabine 200 mg 12/06/20 10:00 12/14/20 09:31 Emtricitabine 200 Mg Cap PO 200 mg QDAY CEFERINO Administration Enoxaparin Sodium 40 mg 12/06/20 22:00 12/13/20 21:34 Enoxaparin 40 Mg/0.4 Ml Inj SUB-Q 40 mg QDAY@2200 CEFERINO Administration Protocol Guaifenesin 200 mg 12/07/20 21:29 12/09/20 17:58 Guaifenesin 100 Mg/5 Ml Oral Liqd PO 200 mg Q4H PRN Administration Cough Hydrocodone Bit/Homatropine Methylb 10 ml 12/12/20 13:52 Hydrocodone/Homatropine 5-1.5mg /5 Ml Oral Liqd Unit Dose PO Q6H PRN Cough Sodium Chloride 1,000 mls @ 50 mls/hr 12/12/20 10:45 Nacl 0.9% 1000 Ml IV DIRECT CEFERINO Morphine Sulfate 2 mg 12/06/20 03:46 Morphine 2 Mg/1 Ml Inj IV Q4H PRN Pain, Moderate (4-6) Ondansetron HCl 4 mg 12/06/20 03:46 Ondansetron 4 Mg/2 Ml Inj IV Q8H PRN Nausea And Vomiting Penicillin G Benzathine 2.4 mil.units 12/10/20 15:00 12/10/20 14:49 Penicillin G Benzathine 1.2 Million Unit/2 Ml Inj IM 12/24/20 15:01 2.4 mi l.units Q7D CEFERINO Administration Sodium Chloride 10 ml 12/06/20 10:00 12/14/20 09:33 Sodium Chloride 0.9% 10 Ml Flush Syringe IV 10 ml BID CEFERINO Administration Sodium Chloride 10 ml 12/06/20 03:46 Sodium Chloride 0.9% 10 Ml Flush Syringe IV PRN PRN LINE FLUSH Tenofovir Disoproxil Fumarate 300 mg 12/06/20 10:00 12/14/20 09:32 Tenofovir 300 Mg Tab PO 300 mg QDAY CEFERINO Administration Trimethoprim/Sulfamethoxazole 1 each 12/13/20 13:00 12/14/20 09:52 Sulfamethoxazole/Trimethoprim 800/160mg Ds Tab PO 1 each DAILY CEFERINO Administration Protocol Nutrition/Malnutrition Assess - Dietary Evaluation Nutrition/Malnutrition Findings: Nutrition Notes Start: 12/13/20 10:03 Freq: Status: Active Protocol: Document 12/13/20 10:03 AT (Rec: 12/13/20 10:05 AT [id number]) Co-Sign 12/13/20 10:03 CW Nutrition Notes Need for Assessment generated from: LOS Initial or Follow up Assessment Current Diagnosis Respiratory Failure Other Pertinent Diagnosis HIV, SOB, bilat pneu, COVID-19 (-) Current Diet Regular Diet Labs/Tests BUN 8 Cr 0.7 Ca 8.1 Pertinent Medications NS at 50 mL/hr Height 5 ft 8 in Weight 88.5 kg [place] Body Weight (kg) 70.00 BMI 29.6 Weight Status Overweight Subjective/Other Information Screen for LOS. Could not reach pt by phone x2. Per chart, pt was consuming between 75-100% of meals for several days. Per RN, pt has consumed 50% of meals for the past two days. 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 Pt may be at nutritional risk given chronic illness, SOB presentation, and declining meal consumption. Percent of energy/protein needs met: 49%/63% Burn Absent Trauma Absent GI Symptoms None Current % PO Fair (50-74%) Minimum of two criteria No physical signs of malnutrition #1 Nutrition Diagnosis Inadequate oral intake Etiology SOB, Respiratory Failure As Evidenced by Signs and Symptoms pt consuming 50% of meals Is patient on ventilator? No Is Patient Ambulatory and/or Out of Bed No REE-([facility]-confined to bed) [phone] Calculation Used for Recommendations [facility] Additional Notes PRO needs: 71-86g (0.8-1g/kg ABW) Fluid needs: 1 mL/kcal or per MD Nutrition Intervention Change Diet Order: Continue diet as ordered Add Supplement/Snack (indicate name/kcal Ensure Enlive daily /protein ) Provides kCal: 350 Provides Protein (gm) 20 Goal #1 Meet at least 75% of EER and protein needs via diet and ONS Goal #2 Weight maintenance Anticipated Discharge Needs: Regular diet Follow-Up By: 12/17/20 Additional Comments F/U stable intakes, ONS tolerance - Malnutrition Assessment Minimum of two criteria: No - Attestation Statement I have reviewed and agreed w/ Malnutrition eval & tx plan: Yes
--- NOTE | 2020-12-14 12:37 | Progress Note ---
Assessment and Plan Cultures: Previous chart and cultures reviewed. 12/06/2020 blood culture: no growth 12/06/2020 serum cryptococcal antigen: Negative 12/06/2020 fungal blood culture: In process 12/07/2020 sputum culture: Oral contamination Syphilis IgG positive, 12/07/2020 RPR titer: 1:2 12/06/2020 HIV RNA PCR: 51 12/08/2020 sputum smear for fungus and AFB: Negative A/P: 35-year-old male with HIV, recent admission in October 2020 with COVID-19 was admitted to the hospital with complaints of cough and shortness of breath: #Bilateral pneumonia, worse on right compared to left. This is chronic and has been present since 2019. Underwent a bronchoscopy by Dr. Ardon in October 2019. BAL culture grew usual respiratory shari, it seems fungal culture got canceled. Fungal stain was positive for hyphae and spores, negative for PJP. His CT scan in August 2020 showed a persistent masslike consolidation in the right hilar region. Repeat CT showed right hilar mass with infiltrates and mediastinal ly mphadenopathy. #Splenic hypodensities noted on previous CT scan. Splenic lesions appear i mproved on CT scan. Also seen was inguinal and retroperitoneal lymphadenopathy. #HIV: Compliant with Biktarvy. Viral load remains low, CD4 count 35, 10%. #Bilateral lower extremity purplish lesions: These were biopsied by dermatology outpatient, patient did not follow-up to get the results. 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 Treat with benzathine penicillin weekly x3 #Leukopenia, reactive thrombocytosis Recs: -s/p transbronchial biopsy for histopath + for fungal, AFB culture, BAL for fungal and AFB cultures. Results pending -f/u AFB blood culture, fungal blood culture, Aspergillus galactomannan, histoplasma and blasto urinary antigens -Continue Biktarvy, therapeutic interchange to TDF, emtricitabine, dolutegravir as per hospital formulary -benzathine penicillin weekly x 3 for late latent syphilis. got 1 dose 12/10/2020 -f/u outside derm biopsy results -continue PO bactrim DS 1 tab daily for OI prophylaxis León Velásquez MD, FACP [facility] ([facility]) O: [phone] F: [phone] Subjective Date of service: 12/14/20 Principal diagnosis: Ac hypoxemic resp failure; Pneumonia; HIV+ve; PUI COVID-19; Anemia Interval history: No fever. No new complaints. Objective - Exam Narrative Exam: Physical Exam: Constitutional: Alert, cooperative. No acute distress Head, Ears, Nose: Normocephalic, atraumatic. External ears, nose normal Eyes: Conjunctivae/corneas clear. No icterus. No ptosis. Neck: Supple, no meningeal signs Cardiovascular: S1, S2 normal. Respiratory: AE fair b/l GI: Soft, non-tender; bowel sounds normal. No peritoneal signs Musculoskeletal: No pedal edema, no cyanosis. Skin: b/L LE with purplish lesions Hem/Lymphatic: No palpable cervical or supraclavicular nodes. No lymphangitis Psych: Mood ok. Affect normal Neurological: Awake, alert, oriented. No gross abnormality - Constitutional Vitals: Vital Signs Temp Pulse Resp BP Pulse Ox 98.4 F 72 18 98/63 93 12/14/20 04:39 12/14/20 07:45 12/14/20 07:45 12/14/20 04:39 12/14/20 07:45 Temperature -Last 24 Hours Temperature 98.4 F Temperature 99.3 F Temperature 98.3 F Temperature 97.9 F - Labs CBC & Chem 7: 12/13/20 06:30 12/13/20 06:30
[2020-12-14] MEDS: ENOXAPARIN 40 MG/0.4 ML INJ SUB-Q SCH (21:40)
[2020-12-15] MEDS: BENZONATATE 100 MG CAP PO SCH ×3 (06:00→21:59)
[2020-12-15] MEDS: IPRATROPIUM/ALBUTEROL SULFATE 3 ML AMPUL.NEB IH SCH ×3 (09:08→21:22)
[2020-12-15] MEDS: SULFAMETHOXAZOLE/TRIMETHOPRIM 800/160MG DS TAB PO SCH (09:52)
[2020-12-15] MEDS: DOLUTEGRAVIR 50 MG TAB PO SCH (09:52)
[2020-12-15] MEDS: TENOFOVIR 300 MG TAB PO SCH (09:52)
[2020-12-15] MEDS: EMTRICITABINE 200 MG CAP PO SCH (09:52)
--- NOTE | 2020-12-15 10:32 | Progress Note ---
Assessment and Plan Assessment and plan: Assessment and Plan Assessment and plan: Patient is scheduled for bronchoscopy today Bilateral pneumonia Patient placed on empiric IV antibiotics. Procalcitonin is low, antibiotics DC'd Supportive care right hilar mass/ mediastinal lymphadenopathy Pulmonary following scheduled for bronchoscopy today 12/12/2020 N.p.o. status HIV antibody positive Unknown foot CD4 counts. Continue antiretroviral agent. Management per ID Hypoxia/requiring 2 L nasal cannula oxygen Secondary to the pneumonia. Evaluation for home oxygen at discharge. 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 Full code status Patient is a full code. Closely monitor the patient and adjust the management as needed Follow bronchoscopy findings follow BAL analysis and cultures Plan of care reviewed with the patient and his nurse Consultants and recommendations noted and appreciated Brief history 35-year-old male with known history of HIV with unknown CD4 count presenting to the emergency room today complaining of shortness of breath and difficulty breathing. Symptoms were said to have been ongoing for the past 2 to 3 days. Shortness of breath is worse on exertion. He denies any fever or chills, no chest pain, no nausea vomiting, no abdominal pain, no diarrhea, no headache or dizziness, no diaphoresis. Patient states that he tested positive for COVID-19 about a month ago but later tested negative about 2 weeks later. Upon arrival in the emergency room patient was hypoxic with O2 sats of 89% on room air. Chest x-ray reveals: Bilateral parenchymal disease,right greater than left, admitted with bilateral pneumonia with hypoxia. COVID-19 ruled out 12/06:Patient seen and examined today resting comfortably although still with shortness of breath on supine position reports cough. Previous imaging study did reveal mass in the hilum area previous documentation by pulmonary shows that patient had a bronchoscopy in 2019 that showed negative cytology and only fungal entities noted. Will obtain an echocardiogram as none has been obtained in this patient with recurrent shortness of breath and hypoxic respiratory failure with underlying cough in supine position. Will await ID input and also will consult pulmonary. Continue current oxygen management 12/07: Patient underwent follow-up testing today including recommendations by ID as noted below. Otherwise we will continue current management with antibiotics. It appears a fungal culture. ID was canceled but BAL done at that time grew normal shari. Will follow culture results at this time. Pulmonary input is appreciated. Anticipate discharge when symptomatic improvement is noted Covid test result is still pending. 12/11/2020; bronchoscopy tomorrow 12/12/2020 Patient n.p.o. from midnight, consultants recommendations noted and appreciated 12/12/2020; bronchoscopy scheduled for today Follow procedure findings, cultures 12/13/20 Patient is status post bronchoscopy yesterday. Patient denied any chest pain no shortness of breath We will follow the culture from BAL. Follow pulmonary recommendation Discharge plan when cleared by pulmonary. Continue penicillin G, neb treatment. 12/14/20 Patient is doing better. No shortness of breath no chest pain. No cough We will follow the culture for fungal AFB, BAL for fungal and AFB culture Continue antibiotic benzathine penicillin weekly x 3 for latent syphilis . Continue antiretroviral as per ID and pulmonary recommendation. Continue current management. Patient is o.k. no new complain. No shortness of breath. no cough We will follow the culture for fungal AFB, BAL for fungal and AFB culture Continue antibiotic benzathine penicillin weekly x 3 for latent syphilis . Continue antiretroviral as per ID and pulmonary recommendation. Continue current management. History Interval history: Patient is seen and examined. Patient chart and medication reviewed Patient is doing better. No new complaints. Vital signs are stable Hospitalist Physical - Constitutional Vitals: Temp Pulse Resp BP Pulse Ox 98.0 F 82 20 92/61 93 12/15/20 06:34 12/15/20 06:34 12/15/20 06:34 12/15/20 06:34 12/15/20 09:08 General appearance: Present: no acute distress, well-nourished - EENT Eyes: Present: PERRL, EOM intact ENT: hearing intact - Neck Neck: Present: supple, normal ROM - Respiratory Respiratory effort: normal Respiratory: bilateral: CTA - Cardiovascular Rhythm: regular Heart Sounds: Present: S1 & S2 - Extremities Extremities: no ischemia Peripheral Pulses: within normal limits - Abdominal General gastrointestinal: soft, non-tender, non-distended - Integumentary Integumentary: Present: warm, dry - Psychiatric Psychiatric: appropriate mood/affect - Neurologic Neurologic: CNII-XII intact, moves all extremities HEART Score - HEART Score Troponin: Troponin T < 0.010 ng/mL (0.00-0.029) 12/06/20 01:50 Results - Labs CBC & Chem 7: 12/13/20 06:30 05 06:30 Labs: Laboratory Last Values WBC 4.2 K/mm3 (4.5-11.0) L 12/13/20 06:30 RBC 4.04 M/mm3 (3.65-5.03) 12/13/20 06:30 Hgb 10.1 gm/dl (11.8-15.2) L 12/13/20 06:30 Hct 31.7 % (35.5-45.6) L 12/13/20 06:30 MCV 78 fl (84-94) L 12/13/20 06:30 MCH 25 pg (28-32) L 12/13/20 06:30 MCHC 32 % (32-34) 12/13/20 06:30 RDW 17.7 % (13.2-15.2) H 12/13/20 06:30 Plt Count 517 K/mm3 (140-440) H 12/13/20 06:30 Lymph % (Auto) 17.2 % (13.4-35.0) 12/13/20 06:30 [place] % (Auto) 8.8 % (0.0-7.3) H 12/13/20 06:30 Eos % (Auto) 3.0 % (0.0-4.3) 12/13/20 06:30 Baso % (Auto) 0.4 % (0.0-1.8) 12/13/20 06:30 Lymph # (Auto) 0.7 K/mm3 (1.2-5.4) L 12/13/20 06:30 [place] # (Auto) 0.4 K/mm3 (0.0-0.8) 12/13/20 06:30 Eos # (Auto) 0.1 K/mm3 (0.0-0.4) 12/13/20 06:30 Baso # (Auto) 0.0 K/mm3 (0.0-0.1) 12/13/20 06:30 Seg Neutrophils % 70.6 % (40.0-70.0) H 12/13/20 06:30 Seg Neutrophils # 2.9 K/mm3 (1.8-7.7) 12/13/20 06:30 Abs Lymphs (Manual) 354 cells/uL (850-3900) L 12/06/20 15:54 PT 14.4 Sec. (12.2-14.9) 12/07/20 06:25 INR 1.13 (0.87-1.13) 12/07/20 06:25 APTT 36.5 Sec. (24.2-36.6) 12/06/20 01:50 D-Dimer 636.67 ng/mlDDU (0-234) H 12/06/20 01:50 Sodium 137 mmol/L (137-145) 12/13/20 06:30 Potassium 4.2 mmol/L (3.6-5.0) 12/13/20 06:30 Chloride 103.4 mmol/L (98-107) 12/13/20 06:30 Carbon Dioxide 26 mmol/L (22-30) 12/13/20 06:30 Anion Gap 12 mmol/L 12/13/20 06:30 BUN 8 mg/dL (9-20) L 12/13/20 06:30 Creatinine 0.7 mg/dL (0.8-1.3) L 12/13/20 06:30 Estimated GFR > 60 ml/min 12/13/20 06:30 BUN/Creatinine Ratio 11 % 12/13/20 06:30 Glucose 87 mg/dL (75-100) 12/13/20 06:30 Calcium 8.1 mg/dL (8.4-10.2) L 12/13/20 06:30 Ferritin 195.2 ng/mL (30.0-300.0) 12/06/20 01:50 Total Bilirubin 0.20 mg/dL (0.1-1.2) 12/06/20 01:50 AST 12 units/L (5-40) 12/06/20 01:50 ALT 5 units/L (7-56) L 12/06/20 01:50 Alkaline Phosphatase 55 units/L (35-129) 12/06/20 01:50 Lactate Dehydrogenase 212 units/L (91-180) H 12/06/20 01:50 Lactate Dehydrogenase 222 units/L (91-180) H 12/06/20 01:50 Troponin T < 0.010 ng/mL (0.00-0.029) 12/06/20 01:50 C-Reactive Protein 3.90 mg/dL (0.00-1.30) H 12/06/20 01:50 NT-Pro-B Natriuret Pep 98.86 pg/mL (0-450) 12/06/20 01:50 Total Protein 6.9 g/dL (6.3-8.2) 12/06/20 01:50 Albumin 2.8 g/dL (3.9-5) L 12/06/20 01:50 Albumin/Globulin Ratio 0.7 % 12/06/20 01:50 Procalcitonin 0.06 ng/mL (<0.15) 12/06/20 01:50 Lymph Enumerat CD4/CD8 0.37 (0.86-5.00) L 12/06/20 15:54 % CD3 Cells 39 % (57-85) L 12/06/20 15:54 Absolute CD3 Count 139 cells/uL (840-3060) L 12/06/20 15:54 % CD4 Cells 10 % (30-61) L 12/06/20 15:54 Absolute CD4 Count 35 cells/uL (490-1740) L 12/06/20 15:54 % CD8 Cells 27 % (12-42) 12/06/20 15:54 Absolute CD8 Count 94 cells/uL (180-1170) L 12/06/20 15:54 % CD19 Cells 6 % (6-29) 12/06/20 15:54 Absolute CD19 Count 20 cells/uL (110-660) L 12/06/20 15:54 Syphilis IgG Antibody Reactive (NonReactive) A 12/07/20 14:36 RPR Titer 1:2 12/07/20 14:36 Coronavirus (PCR) Negative (Negative) 12/06/20 09:50 HIV-1 RNA PCR copies/ml 51 Copies/mL H 12/06/20 15:54 HIV-1 RNA (PCR) log 1.71 Log cps/mL H 12/06/20 15:54 AFB Identification Negative 12/09/20 21:30 Fungal Id Prelim 12/08/20 08:23 Miscellaneous Test Flexitest 1 12/07/20 09:15 Thakur/IV: Voiding Method Urinal Active Medications - Current Medications Current Medications: Generic Name Dose Route Start Last Admin Trade Name Freq PRN Reason Stop Dose Admin Acetaminophen 650 mg 12/06/20 03:46 12/07/20 22:00 Acetaminophen 325 Mg Tab PO 650 mg Q4H PRN Administration Pain MILD(1-3)/Fever >100.5/LIU Albuterol/Ipratropium 1 ampul 12/09/20 20:00 12/15/20 09:08 Ipratropium/Albuterol Sulfate 3 Ml Ampul.Neb IH Not Given TIDRT CEFERINO Benzonatate 100 mg 12/06/20 14:00 12/15/20 06:00 Benzonatate 100 Mg Cap PO Not Given Q8HR CEFERINO Emtricitabine 200 mg 12/06/20 10:00 12/15/20 09:52 Emtricitabine 200 Mg Cap PO 200 mg QDAY CEFERINO Administration Enoxaparin Sodium 40 mg 12/06/20 22:00 12/14/20 21:40 Enoxaparin 40 Mg/0.4 Ml Inj SUB-Q 40 mg QDAY@2200 CEFERINO Administration Protocol Guaifenesin 200 mg 12/07/20 21:29 12/09/20 17:58 Guaifenesin 100 Mg/5 Ml Oral Liqd PO 200 mg Q4H PRN Administration Cough Hydrocodone Bit/Homatropine Methylb 10 ml 12/12/20 13:52 Hydrocodone/Homatropine 5-1.5mg /5 Ml Oral Liqd Unit Dose PO Q6H PRN Cough Sodium Chloride 1,000 mls @ 50 mls/hr 12/12/20 10:45 Nacl 0.9% 1000 Ml IV DIRECT CEFERINO Morphine Sulfate 2 mg 12/06/20 03:46 Morphine 2 Mg/1 Ml Inj IV Q4H PRN Pain, Moderate (4-6) Ondansetron HCl 4 mg 12/06/20 03:46 Ondansetron 4 Mg/2 Ml Inj IV Q8H PRN Nausea And Vomiting Penicillin G Benzathine 2.4 mil.units 12/10/20 15:00 12/10/20 14:49 Penicillin G Benzathine 1.2 Million Unit/2 Ml Inj IM 12/24/20 15:01 2.4 mil.units Q7D CEFERINO Administration Sodium Chloride 10 ml 12/06/20 10:00 12/15/20 09:51 Sodium Chloride 0.9% 10 Ml Flush Syringe IV 10 ml BID CEFERINO Administration Sodium Chloride 10 ml 12/06/20 03:46 Sodium Chloride 0.9% 10 Ml Flush Syringe IV PRN PRN LINE FLUSH Tenofovir Disoproxil Fumarate 300 mg 12/06/20 10:00 12/15/20 09:52 Tenofovir 300 Mg Tab PO 300 mg QDAY CEFERINO Administration Trimethoprim/Sulfamethoxazole 1 each 12/13/20 13:00 12/15/20 09:52 Sulfamethoxazole/Trimethoprim 800/160mg Ds Tab PO 1 each DAILY CEFERINO Administration Protocol Nutrition/Malnutrition Assess - Dietary Evaluation Nutrition/Malnutrition Findings: Nutrition Notes Start: 12/13/20 10:03 Freq: Status: Active Protocol: Document 12/13/20 10:03 AT (Rec: 12/13/20 10:05 AT [id number]) Co-Sign 12/13/20 10:03 CW Nutrition Notes Need for Assessment generated from: LOS Initial or Follow up Assessment Current Diagnosis Respiratory Failure Other Pertinent Diagnosis HIV, SOB, bilat pneu, COVID-19 (-) Current Diet Regular Diet Labs/Tests BUN 8 Cr 0.7 Ca 8.1 Pertinent Medications NS at 50 mL/hr Height 5 ft 8 in Weight 88.5 kg [place] Body Weight (kg) 70.00 BMI 29.6 Weight Status Overweight Subjective/Other Information Screen for LOS. Could not reach pt by phone x2. Per chart, pt was consuming between 75-100% of meals for several days. Per RN, pt has consumed 50% of meals for the past two days. [employer] was unable to complete nutrition- focused physical exam. Pt may be at nutritional risk given chronic illness, SOB presentation, and declining meal consumption. Percent of energy/protein needs met: 49%/63% Burn Absent Trauma Absent GI Symptoms None Current % PO Fair (50-74%) Minimum of two criteria No physical signs of malnutrition #1 Nutrition Diagnosis Inadequate oral intake Etiology SOB, Respiratory Failure As Evidenced by Signs and Symptoms pt consuming 50% of meals Is patient on ventilator? No Is Patient Ambulatory and/or Out of Bed No REE-([facility]-confined to bed) [phone] Calculation Used for Recommendations [facility] Additional Notes PRO needs: 71-86g (0.8-1g/kg ABW) Fluid needs: 1 mL/kcal or per MD Nutrition Intervention Change Diet Order: Continue diet as ordered Add Supplement/Snack (indicate name/kcal Ensure Enlive daily /protein ) Provides kCal: 350 Provides Protein (gm) 20 Goal #1 Meet at least 75% of EER and protein needs via diet and ONS Goal #2 Weight maintenance Anticipated Discharge Needs: Regular diet Follow-Up By: 12/17/20 Additional Comments F/U stable intakes, ONS tolerance - Malnutrition Assessment Minimum of two criteria: No physical signs of malnutrition - Attestation Statement I have reviewed and agreed w/ Malnutrition eval & tx plan: Yes
--- NOTE | 2020-12-15 12:36 | Progress Note ---
Assessment and Plan Cultures: Previous chart and cultures reviewed. 12/06/2020 blood culture: no growth 12/06/2020 serum cryptococcal antigen: Negative 12/06/2020 fungal blood culture: In process 12/07/2020 sputum culture: Oral contamination Syphilis IgG positive, 12/07/2020 RPR titer: 1:2 12/06/2020 HIV RNA PCR: 51 12/08/2020 sputum smear for fungus and AFB: Negative A/P: 35-year-old male with HIV, recent admission in October 2020 with COVID-19 was admitted to the hospital with complaints of cough and shortness of breath: #Bilateral pneumonia, worse on right compared to left. This is chronic and has been present since 2019. Underwent a bronchoscopy by Dr. Ardon in October 2019. BAL culture grew usual respiratory shari, it seems fungal culture got canceled. Fungal stain was positive for hyphae and spores, negative for PJP. His CT scan in August 2020 showed a persistent masslike consolidation in the right hilar region. Repeat CT showed right hilar mass with infiltrates and mediastinal ly mphadenopathy. s/p empiric abx: Ceftriaxone. #Splenic hypodensities noted on previous CT scan. Splenic lesions appear improved on CT scan. Also seen was inguinal and retroperitoneal lymphadenopathy. #HIV: Compliant with Biktarvy. Viral load remains low, CD4 count 35, 10%. #Bilateral lower extremity purplish lesions: These were biopsied by dermatology outpatient, patient did not follow-up to get the results. 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 Treat with benzathine penicillin weekly x3 #Leukopenia, reactive thrombocytosis Recs: -s/p transbronchial biopsy for histopath + for fungal, AFB culture, BAL for fungal and AFB cultures. Results pending -f/u AFB blood culture, fungal blood culture, Aspergillus galactomannan, histoplasma and blasto urinary antigens -Continue Biktarvy, therapeutic interchange to TDF, emtricitabine, dolutegravir as per hospital formulary -benzathine penicillin weekly x 3 for late latent syphilis. 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 No new complaints. sitting up right at the edge of bed. Objective - Exam Narrative Exam: Physical Exam: Constitutional: Alert, cooperative. No acute distress Head, Ears, Nose: Normocephalic, atraumatic. External ears, nose normal Eyes: Conjunctivae/corneas clear. No icterus. No ptosis. Neck: Supple, no meningeal signs Cardiovascular: S1, S2 normal. Respiratory: AE fair b/l, occasional rhonchi + GI: Soft, non-tender; bowel sounds normal. No peritoneal signs Musculoskeletal: No pedal edema, no cyanosis. Skin: b/L LE with purplish lesions Hem/Lymphatic: No palpable cervical or supraclavicular nodes. No lymphangitis Psych: Mood ok. Affect normal Neurological: Awake, alert, oriented. No gross abnormality - Constitutional Vitals: Vital Signs Temp Pulse Resp BP Pulse Ox 97.8 F 92 H 16 101/66 95 12/15/20 11:16 12/15/20 11:16 12/15/20 11:16 12/15/20 11:16 12/15/20 11:16 Temperature -Last 24 Hours Temperature 97.8 F Temperature 98.0 F Temperature 97.6 F Temperature 98.6 F Temperature 97.8 F - Labs CBC & Chem 7: 12/13/20 06:30 12/13/20 06:30
--- NOTE | 2020-12-15 16:19 | Progress Note ---
Assessment and Plan Acute hypoxemic respiratory failure. Bilateral pneumonia, chronic. Human immunodeficiency virus positive. Leukopenia. Anemia that is microcytic. -s/p transbronchial biopsy, results pending Continue all current antibiotics, and continue with airborne isolation until AFB smear results are available -Titrate supplemental oxygen to keep O2 sats 89-92%, wean as tolerated. -prn Bronchodilators (JJ) with pulm hygiene per RT - accuchecks with glycemic control per SSI for target blood glucose < 180 mg/dL - home oxygen evaluation at discharge -VTE prophylaxis - Flu & pneumovax per protocol - prn analgesia per pain score - COVID-19 test negative - continue other care per attending / other consultants - Continue airborne isolation till AFB cleared Subjective Date of service: 12/15/20 Principal diagnosis: Ac hypoxemic resp failure; Pneumonia; HIV+ve; PUI COVID-19; Anemia Interval history: Patient is seen today for: Acute hypoxemic respiratory failure; Bilateral pneumonia with hilar adenopathy s/p bronchoscopy ; HIV+ve; PUI COVID-19; Anemia Seen and examined at bedside; 24hour events reviewed; nursing and respiratory care staff consulted; no adverse overnight events reported to me; sitting up in bed on supplemental oxygen at 3L/min via NC ; denies any hemoptysis , denies chest pain or acute SOB; afebrile Objective Vital Signs - 12hr 12/15/20 12/15/20 12/15/20 06:34 09:08 11:16 Temperature 98.0 F 97.8 F Pulse Rate 82 92 H Respiratory 20 16 Rate Blood Pressure 92/61 101/66 O2 Sat by Pulse 92 93 95 Oximetry Constitutional: no acute distress, alert Eyes: non-icteric ENT: oropharynx moist Neck: supple, no lymphadenopathy, no JVD Effort: normal Ascultation: Bilateral: rales (R>L), rhonchi Percussion: Bilateral: not dull Cardiovascular: regular rate and rhythm Gastrointestinal: normoactive bowel sounds, soft, non-tender, non-distended Integumentary: rash (to legs) Extremities: no cyanosis, pulses normal, no ischemia or petechiae, edema (1+) Neurologic: non-focal exam, pupils equal and round, CN II-XII normal, motor strength normal and Psychiatric: mood appropriate, affect normal CBC and BMP: 12/13/20 06:30 12/13/20 06:30 ABG, PT/INR, D-dimer: PT/INR, D-dimer PT 14.4 Sec. (12.2-14.9) 12/07/20 06:25 INR 1.13 (0.87-1.13) 12/07/20 06:25 D-Dimer 636.67 ng/mlDDU (0-234) H 12/06/20 01:50 Abnormal lab findings: Abnormal Labs 12/06/20 12/06/20 12/06/20 01:50 01:50 01:50 WBC 4.4 L Hgb 10.9 L Hct 34.2 L MCV 78 L MCH 25 L RDW 18.0 H Plt Count 494 H [place] % (Auto) 9.7 H Eos % (Auto) 7.1 H Lymph # (Auto) 1.0 L Seg Neutrophils % Seg Neutrophils # Abs Lymphs (Manual) INR D-Dimer Sodium 135 L Potassium BUN 8 L Creatinine Glucose 102 H Calcium 7.7 L ALT 5 L Lactate Dehydrogenase 212 H C-Reactive Protein Albumin 2.8 L Lymph Enumerat CD4/CD8 % CD3 Cells Absolute CD3 Count % CD4 Cells Absolute CD4 Count Absolute CD8 Count Absolute CD19 Count Syphilis IgG Antibody HIV-1 RNA PCR copies/ml HIV-1 RNA (PCR) log 12/06/20 12/06/20 12/06/20 01:50 01:50 01:50 WBC Hgb Hct MCV MCH RDW Plt Count [place] % (Auto) Eos % (Auto) Lymph # (Auto) Seg Neutrophils % Seg Neutrophils # Abs Lymphs (Manual) INR 1.16 H D-Dimer 636.67 H Sodium Potassium BUN Creatinine Glucose 103 H Calcium ALT Lactate Dehydrogenase 222 H C-Reactive Protein 3.90 H Albumin Lymph Enumerat CD4/CD8 % CD3 Cells Absolute CD3 Count % CD4 Cells Absolute CD4 Count Absolute CD8 Count Absolute CD19 Count Syphilis IgG Antibody HIV-1 RNA PCR copies/ml HIV-1 RNA (PCR) log 12/06/20 12/06/20 12/07/20 15:54 15:54 06:25 WBC 2.9 L Hgb 9.8 L Hct 30.7 L MCV 79 L MCH 25 L RDW 17.5 H Plt Count 484 H [place] % (Auto) 14.9 H Eos % (Auto) Lymph # (Auto) 0.8 L Seg Neutrophils % Seg Neutrophils # 1.7 L Abs Lymphs (Manual) 354 L INR D-Dimer Sodium Potassium BUN Creatinine Glucose Calcium ALT Lactate Dehydrogenase C-Reactive Protein Albumin Lymph Enumerat CD4/CD8 0.37 L % CD3 Cells 39 L Absolute CD3 Count 139 L % CD4 Cells 10 L Absolute CD4 Count 35 L Absolute CD8 Count 94 L Absolute CD19 Count 20 L Syphilis IgG Antibody HIV-1 RNA PCR copies/ml 51 H HIV-1 RNA (PCR) log 1.71 H 12/07/20 12/07/20 12/08/20 06:25 14:36 08:37 WBC 2.9 L Hgb 11.2 L Hct 34.7 L MCV 80 L MCH 26 L RDW 17.9 H Plt Count 519 H [place] % (Auto) Eos % (Auto) Lymph # (Auto) Seg Neutrophils % Seg Neutrophils # Abs Lymphs (Manual) INR D-Dimer Sodium Potassium 3.3 L BUN Creatinine Glucose 115 H Calcium 7.7 L ALT Lactate Dehydrogenase C-Reactive Protein Albumin Lymph Enumerat CD4/CD8 % CD3 Cells Absolute CD3 Count % CD4 Cells Absolute CD4 Count Absolute CD8 Count Absolute CD19 Count Syphilis IgG Antibody Reactive A HIV-1 RNA PCR copies/ml HIV-1 RNA (PCR) log 12/08/20 12/12/20 12/12/20 08:37 10:29 10:29 WBC 2.8 L Hgb 11.6 L Hct MCV 80 L MCH 25 L RDW 17.2 H Plt Count 588 H [place] % (Auto) 11.4 H Eos % (Auto) Lymph # (Auto) 0.8 L Seg Neutrophils % Seg Neutrophils # 1.5 L Abs Lymphs (Manual) INR D-Dimer Sodium 135 L Potassium 3.3 L BUN 8 L 7 L Creatinine Glucose Calcium 8.0 L ALT Lactate Dehydrogenase C-Reactive Protein Albumin Lymph Enumerat CD4/CD8 % CD3 Cells Absolute CD3 Count % CD4 Cells Absolute CD4 Count Absolute CD8 Count Absolute CD19 Count Syphilis IgG Antibody HIV-1 RNA PCR copies/ml HIV-1 RNA (PCR) log 12/13/20 12/13/20 06:30 06:30 WBC 4.2 L Hgb 10.1 L Hct 31.7 L MCV 78 L MCH 25 L RDW 17.7 H Plt Count 517 H [place] % (Auto) 8.8 H Eos % (Auto) Lymph # (Auto) 0.7 L Seg Neutrophils % 70.6 H Seg Neutrophils # Abs Lymphs (Manual) INR D-Dimer Sodium Potassium BUN 8 L Creatinine 0.7 L Glucose Calcium 8.1 L ALT Lactate Dehydrogenase C-Reactive Protein Albumin Lymph Enumerat CD4/CD8 % CD3 Cells Absolute CD3 Count % CD4 Cells Absolute CD4 Count Absolute CD8 Count Absolute CD19 Count Syphilis IgG Antibody HIV-1 RNA PCR copies/ml HIV-1 RNA (PCR) log Allied health notes reviewed: nursing
[2020-12-15] MEDS: ENOXAPARIN 40 MG/0.4 ML INJ SUB-Q SCH (21:59)
[2020-12-16] MEDS: BENZONATATE 100 MG CAP PO SCH ×3 (06:14→22:05)
[2020-12-16] MEDS: IPRATROPIUM/ALBUTEROL SULFATE 3 ML AMPUL.NEB IH SCH ×3 (09:04→19:51)
[2020-12-16] MEDS: TENOFOVIR 300 MG TAB PO SCH (09:30)
[2020-12-16] MEDS: SULFAMETHOXAZOLE/TRIMETHOPRIM 800/160MG DS TAB PO SCH (09:31)
[2020-12-16] MEDS: EMTRICITABINE 200 MG CAP PO SCH (09:31)
[2020-12-16] MEDS: DOLUTEGRAVIR 50 MG TAB PO SCH (09:31)
--- NOTE | 2020-12-16 09:59 | Progress Note ---
Assessment and Plan Assessment and plan: Assessment and Plan Assessment and plan: Patient is scheduled for bronchoscopy today Bilateral pneumonia Patient placed on empiric IV antibiotics. Procalcitonin is low, antibiotics DC'd Supportive care right hilar mass/ mediastinal lymphadenopathy Pulmonary following scheduled for bronchoscopy today 12/12/2020 N.p.o. status HIV antibody positive Unknown foot CD4 counts. Continue antiretroviral agent. Management per ID Hypoxia/requiring 2 L nasal cannula oxygen Secondary to the pneumonia. Evaluation for home oxygen at discharge. 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 Full code status Patient is a full code. Closely monitor the patient and adjust the management as needed Follow bronchoscopy findings follow BAL analysis and cultures Plan of care reviewed with the patient and his nurse Consultants and recommendations noted and appreciated Brief history 35-year-old male with known history of HIV with unknown CD4 count presenting to the emergency room today complaining of shortness of breath and difficulty breathing. Symptoms were said to have been ongoing for the past 2 to 3 days. Shortness of breath is worse on exertion. He denies any fever or chills, no chest pain, no nausea vomiting, no abdominal pain, no diarrhea, no headache or dizziness, no diaphoresis. Patient states that he tested positive for COVID-19 about a month ago but later tested negative about 2 weeks later. Upon arrival in the emergency room patient was hypoxic with O2 sats of 89% on room air. Chest x-ray reveals: Bilateral parenchymal disease,right greater than left, admitted with bilateral pneumonia with hypoxia. COVID-19 ruled out 12/06:Patient seen and examined today resting comfortably although still with shortness of breath on supine position reports cough. Previous imaging study did reveal mass in the hilum area previous documentation by pulmonary shows that patient had a bronchoscopy in 2019 that showed negative cytology and only fungal entities noted. Will obtain an echocardiogram as none has been obtained in this patient with recurrent shortness of breath and hypoxic respiratory failure with underlying cough in supine position. Will await ID input and also will consult pulmonary. Continue current oxygen management 12/07: Patient underwent follow-up testing today including recommendations by ID as noted below. Otherwise we will continue current management with antibiotics. It appears a fungal culture. ID was canceled but BAL done at that time grew normal shari. Will follow culture results at this time. Pulmonary input is appreciated. Anticipate discharge when symptomatic improvement is noted Covid test result is still pending. 12/11/2020; bronchoscopy tomorrow 12/12/2020 Patient n.p.o. from midnight, consultants recommendations noted and appreciated 12/12/2020; bronchoscopy scheduled for today Follow procedure findings, cultures 12/13/20 Patient is status post bronchoscopy yesterday. Patient denied any chest pain no shortness of breath We will follow the culture from BAL. Follow pulmonary recommendation Discharge plan when cleared by pulmonary. Continue penicillin G, neb treatment. 12/14/20 Patient is doing better. No shortness of breath no chest pain. No cough We will follow the culture for fungal AFB, BAL for fungal and AFB culture Continue antibiotic benzathine penicillin weekly x 3 for latent syphilis . Continue antiretroviral as per ID and pulmonary recommendation. Continue current management. Patient is o.k. no new complain. No shortness of breath. no cough We will follow the culture for fungal AFB, BAL for fungal and AFB culture Continue antibiotic benzathine penicillin weekly x 3 for latent syphilis . Continue antiretroviral as per ID and pulmonary recommendation. Continue current management. 12/16/20 Patient is feels better. no shortness of breath. no cough We we are waiting for the result of the the culture for fungal AFB, BAL for f ungal and AFB culture Continue antibiotic benzathine penicillin weekly x 3 for latent syphilis . Co ntinue antiretroviral as per ID and pulmonary recommendation. Continue current management. Discharge plan when cleared by infectious disease and pulmonary History Interval history: Patient is seen and examined. Patient chart and medication reviewed Patient is doing better. No new complaints. Vital signs are stable Hospitalist Physical - Constitutional Vitals: Temp Pulse Resp BP Pulse Ox 97.9 F 92 H 16 88/58 94 12/16/20 04:31 12/16/20 04:31 12/16/20 04:31 12/16/20 04:31 12/16/20 04:31 General appearance: Present: no acute distress, well-nourished - EENT Eyes: Present: PERRL, EOM intact ENT: hearing intact, clear oral mucosa, dentition normal - Neck Neck: Present: supple, normal ROM - Respiratory Respiratory effort: normal Respiratory: bilateral: diminished - Cardiovascular Rhythm: regular Heart Sounds: Present: S1 & S2 - Extremities Extremities: no ischemia Peripheral Pulses: within normal limits - Abdominal General gastrointestinal: soft, non-tender, non-distended, normal bowel sounds - Integumentary Integumentary: Present: warm, dry - Psychiatric Psychiatric: appropriate mood/affect, intact judgment & insight - Neurologic Neurologic: CNII-XII intact, moves all extremities HEART Score - HEART Score Troponin: Troponin T < 0.010 ng/mL (0.00-0.029) 12/06/20 01:50 Results - Labs CBC & Chem 7: 12/13/20 06:30 12/13/20 06:30 Labs: Laboratory Last Values WBC 4.2 K/mm3 (4.5-11.0) L 12/13/20 06:30 RBC 4.04 M/mm3 (3.65-5.03) 12/13/20 06:30 Hgb 10.1 gm/dl (11.8-15.2) L 12/13/20 06:30 Hct 31.7 % (35.5-45.6) L 12/13/20 06:30 MCV 78 fl (84-94) L 12/13/20 06:30 MCH 25 pg (28-32) L 12/13/20 06:30 MCHC 32 % (32-34) 12/13/20 06:30 RDW 17.7 % (13.2-15.2) H 12/13/20 06:30 Plt Count 517 K/mm3 (140-440) H 12/13/20 06:30 Lymph % (Auto) 17.2 % (13.4-35.0) 12/13/20 06:30 [place] % (Auto) 8.8 % (0.0-7.3) H 12/13/20 06:30 Eos % (Auto) 3.0 % (0.0-4.3) 12/13/20 06:30 Baso % (Auto) 0.4 % (0.0-1.8) 12/13/20 06:30 Lymph # (Auto) 0.7 K/mm3 (1.2-5.4) L 12/13/20 06:30 [place] # (Auto) 0.4 K/mm3 (0.0-0.8) 12/13/20 06:30 Eos # (Auto) 0.1 K/mm3 (0.0-0.4) 12/13/20 06:30 Baso # (Auto) 0.0 K/mm3 (0.0-0.1) 12/13/20 06:30 Seg Neutrophils % 70.6 % (40.0-70.0) H 12/13/20 06:30 Seg Neutrophils # 2.9 K/mm3 (1.8-7.7) 12/13/20 06:30 Abs Lymphs (Manual) 354 cells/uL (850-3900) L 12/06/20 15:54 PT 14.4 Sec. (12.2-14.9) 12/07/20 06:25 INR 1.13 (0.87-1.13) 12/07/20 06:25 APTT 36.5 Sec. (24.2-36.6) 12/06/20 01:50 D-Dimer 636.67 ng/mlDDU (0-234) H 12/06/20 01:50 Sodium 137 mmol/L (137-145) 12/13/20 06:30 Potassium 4.2 mmol/L (3.6-5.0) 12/13/20 06:30 Chloride 103.4 mmol/L (98-107) 12/13/20 06:30 Carbon Dioxide 26 mmol/L (22-30) 12/13/20 06:30 Anion Gap 12 mmol/L 12/13/20 06:30 BUN 8 mg/dL (9-20) L 12/13/20 06:30 Creatinine 0.7 mg/dL (0.8-1.3) L 12/13/20 06:30 Estimated GFR > 60 ml/min 12/13/20 06:30 BUN/Creatinine Ratio 11 % 12/13/20 06:30 Glucose 87 mg/dL (75-100) 12/13/20 06:30 Calcium 8.1 mg/dL (8.4-10.2) L 12/13/20 06:30 Ferritin 195.2 ng/mL (30.0-300.0) 12/06/20 01:50 Total Bilirubin 0.20 mg/dL (0.1-1.2) 12/06/20 01:50 AST 12 units/L (5-40) 12/06/20 01:50 ALT 5 units/L (7-56) L 12/06/20 01:50 Alkaline Phosphatase 55 units/L (35-129) 12/06/20 01:50 Lactate Dehydrogenase 212 units/L (91-180) H 12/06/20 01:50 Lactate Dehydrogenase 222 units/L (91-180) H 12/06/20 01:50 Troponin T < 0.010 ng/mL (0.00-0.029) 12/06/20 01:50 C-Reactive Protein 3.90 mg/dL (0.00-1.30) H 12/06/20 01:50 NT-Pro-B Natriuret Pep 98.86 pg/mL (0-450) 12/06/20 01:50 Total Protein 6.9 g/dL (6.3-8.2) 12/06/20 01:50 Albumin 2.8 g/dL (3.9-5) L 12/06/20 01:50 Albumin/Globulin Ratio 0.7 % 12/06/20 01:50 Procalcitonin 0.06 ng/mL (<0.15) 12/06/20 01:50 Lymph Enumerat CD4/CD8 0.37 (0.86-5.00) L 12/06/20 15:54 % CD3 Cells 39 % (57-85) L 12/06/20 15:54 Absolute CD3 Count 139 cells/uL (840-3060) L 12/06/20 15:54 % CD4 Cells 10 % (30-61) L 12/06/20 15:54 Absolute CD4 Count 35 cells/uL (490-1740) L 12/06/20 15:54 % CD8 Cells 27 % (12-42) 12/06/20 15:54 Absolute CD8 Count 94 cells/uL (180-1170) L 12/06/20 15:54 % CD19 Cells 6 % (6-29) 12/06/20 15:54 Absolute CD19 Count 20 cells/uL (110-660) L 12/06/20 15:54 Syphilis IgG Antibody Reactive (NonReactive) A 12/07/20 14:36 RPR Titer 1:2 12/07/20 14:36 Coronavirus (PCR) Negative (Negative) 12/06/20 09:50 HIV-1 RNA PCR copies/ml 51 Copies/mL H 12/06/20 15:54 HIV-1 RNA (PCR) log 1.71 Log cps/mL H 12/06/20 15:54 AFB Identification Negative 12/09/20 21:30 Fungal Id Prelim 12/08/20 08:23 Miscellaneous Test Flexitest 1 12/11/20 10:29 Thakur/IV: Voiding Method Toilet Active Medications - Current Medications Current Medications: Generic Name Dose Route Start Last Admin Trade Name Freq PRN Reason Stop Dose Admin Acetaminophen 650 mg 12/06/20 03:46 12/07/20 22:00 Acetaminophen 325 Mg Tab PO 650 mg Q4H PRN Administration Pain MILD(1-3)/Fever >100.5/LIU Albuterol/Ipratropium 1 ampul 12/09/20 20:00 12/16/20 09:04 Ipratropium/Albuterol Sulfate 3 Ml Ampul.Neb IH 1 ampul TIDRT CEFERINO Administration Benzonatate 100 mg 12/06/20 14:00 12/16/20 06:14 Benzonatate 100 Mg Cap PO 100 mg Q8HR CEFERINO Administration Emtricitabine 200 mg 12/06/20 10:00 12/16/20 09:31 Emtricitabine 200 Mg Cap PO 200 mg QDAY CEFERINO Administration Enoxaparin Sodium 40 mg 12/06/20 22:00 12/15/20 21:59 Enoxaparin 40 Mg/0.4 Ml Inj SUB-Q 40 mg QDAY@2200 CEFERINO Administration Protocol Guaifenesin 200 mg 12/07/20 21:29 12/09/20 17:58 Guaifenesin 100 Mg/5 Ml Oral Liqd PO 200 mg Q4H PRN Administration Cough Hydrocodone Bit/Homatropine Methylb 10 ml 12/12/20 13:52 Hydrocodone/Homatropine 5-1.5mg /5 Ml Oral Liqd Unit Dose PO Q6H PRN Cough Sodium Chloride 1,000 mls @ 50 mls/hr 12/12/20 10:45 Nacl 0.9% 1000 Ml IV DIRECT CEFERINO Morphine Sulfate 2 mg 12/06/20 03:46 Morphine 2 Mg/1 Ml Inj IV Q4H PRN Pain, Moderate (4-6) Ondansetron HCl 4 mg 12/06/20 03:46 Ondansetron 4 Mg/2 Ml Inj IV Q8H PRN Nausea And Vomiting Penicillin G Benzathine 2.4 mil.units 12/10/20 15:00 12/10/20 14:49 Penicillin G Benzathine 1.2 Million Unit/2 Ml Inj IM 12/24/20 15:01 2.4 mil.units Q7D CEFERINO Administration Sodium Chloride 10 ml 12/06/20 10:00 12/16/20 09:31 Sodium Chloride 0.9% 10 Ml Flush Syringe IV 10 ml BID CEFERINO Administration Sodium Chloride 10 ml 12/06/20 03:46 Sodium Chloride 0.9% 10 Ml Flush Syringe IV PRN PRN LINE FLUSH Tenofovir Disoproxil Fumarate 300 mg 12/06/20 10:00 12/16/20 09:30 Tenofovir 300 Mg Tab PO 300 mg QDAY CEFERINO Administration Trimethoprim/Sulfamethoxazole 1 each 12/13/20 13:00 12/16/20 09:31 Sulfamethoxazole/Trimethoprim 800/160mg Ds Tab PO 1 each DAILY CEFERINO Administration Protocol Nutrition/Malnutrition Assess - Dietary Evaluation Nutrition/Malnutrition Findings: Nutrition Notes Start: 12/13/20 10:03 Freq: Status: Active Protocol: Document 12/13/20 10:03 AT (Rec: 12/13/20 10:05 AT [id number]) Co-Sign 12/13/20 10:03 CW Nutrition Notes Need for Assessment generated from: LOS Initial or Follow up Assessment Current Diagnosis Respiratory Failure Other Pertinent Diagnosis HIV, SOB, bilat pneu, COVID-19 (-) Current Diet Regular Diet Labs/Tests BUN 8 Cr 0.7 Ca 8.1 Pertinent Medications NS at 50 mL/hr Height 5 ft 8 in Weight 88.5 kg [place] Body Weight (kg) 70.00 BMI 29.6 Weight Status Overweight Subjective/Other Information Screen for LOS. Could not reach pt by phone x2. Per chart, pt was consuming between 75-100% of meals for several days. Per RN, pt has consumed 50% of meals for the past two days. Assessment Nurse was unable to complete nutrition- focused physical exam. Pt may be at nutritional risk given chronic illness, SOB presentation, and declining meal consumption. Percent of energy/protein needs met: 49%/63% Burn Absent Trauma Absent GI Symptoms None Current % PO Fair (50-74%) Minimum of two criteria No physical signs of malnutrition #1 Nutrition Diagnosis Inadequate oral intake Etiology SOB, Respiratory Failure As Evidenced by Signs and Symptoms pt consuming 50% of meals Is patient on ventilator? No Is Patient Ambulatory and/or Out of Bed No REE-([facility]-confined to bed) [phone] Calculation Used for Recommendations [facility] Additional Notes PRO needs: 71-86g (0.8-1g/kg ABW) Fluid needs: 1 mL/kcal or per MD Nutrition Intervention Change Diet Order: Continue diet as ordered Add Supplement/Snack (indicate name/kcal Ensure Enlive daily /protein ) Provides kCal: 350 Provides Protein (gm) 20 Goal #1 Meet at least 75% of EER and protein needs via diet and ONS Goal #2 Weight maintenance Anticipated Discharge Needs: Regular diet Follow-Up By: 12/17/20 Additional Comments F/U stable intakes, ONS tolerance - Malnutrition Assessment Minimum of two criteria: No physical signs of malnutrition - Attestation Statement I have reviewed and agreed w/ Malnutrition eval & tx plan: Yes
[2020-12-16] MEDS: ENOXAPARIN 40 MG/0.4 ML INJ SUB-Q SCH (22:04)
[2020-12-17] MEDS: BENZONATATE 100 MG CAP PO SCH ×3 (06:04→22:22)
[2020-12-17] MEDS: IPRATROPIUM/ALBUTEROL SULFATE 3 ML AMPUL.NEB IH SCH ×3 (08:07→20:50)
[2020-12-17] MEDS: SULFAMETHOXAZOLE/TRIMETHOPRIM 800/160MG DS TAB PO SCH (09:47)
[2020-12-17] MEDS: EMTRICITABINE 200 MG CAP PO SCH (09:47)
[2020-12-17] MEDS: DOLUTEGRAVIR 50 MG TAB PO SCH (09:47)
[2020-12-17] MEDS: TENOFOVIR 300 MG TAB PO SCH (09:47)
--- NOTE | 2020-12-17 10:56 | Progress Note ---
Assessment and Plan Assessment and plan: Assessment and Plan Assessment and plan: Patient is scheduled for bronchoscopy today Bilateral pneumonia Patient placed on empiric IV antibiotics. Procalcitonin is low, antibiotics DC'd Supportive care right hilar mass/ mediastinal lymphadenopathy Pulmonary following scheduled for bronchoscopy today 12/12/2020 N.p.o. status HIV antibody positive Unknown foot CD4 counts. Continue antiretroviral agent. Management per ID Hypoxia/requiring 2 L nasal cannula oxygen Secondary to the pneumonia. Evaluation for home oxygen at discharge. 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 Full code status Patient is a full code. Closely monitor the patient and adjust the management as needed Follow bronchoscopy findings follow BAL analysis and cultures Plan of care reviewed with the patient and his nurse Consultants and recommendations noted and appreciated Brief history 35-year-old male with known history of HIV with unknown CD4 count presenting to the emergency room today complaining of shortness of breath and difficulty breathing. Symptoms were said to have been ongoing for the past 2 to 3 days. Shortness of breath is worse on exertion. He denies any fever or chills, no chest pain, no nausea vomiting, no abdominal pain, no diarrhea, no headache or dizziness, no diaphoresis. Patient states that he tested positive for COVID-19 about a month ago but later tested negative about 2 weeks later. Upon arrival in the emergency room patient was hypoxic with O2 sats of 89% on room air. Chest x-ray reveals: Bilateral parenchymal disease,right greater than left, admitted with bilateral pneumonia with hypoxia. COVID-19 ruled out 12/06:Patient seen and examined today resting comfortably although still with shortness of breath on supine position reports cough. Previous imaging study did reveal mass in the hilum area previous documentation by pulmonary shows that patient had a bronchoscopy in 2019 that showed negative cytology and only fungal entities noted. Will obtain an echocardiogram as none has been obtained in this patient with recurrent shortness of breath and hypoxic respiratory failure with underlying cough in supine position. Will await ID input and also will consult pulmonary. Continue current oxygen management 12/07: Patient underwent follow-up testing today including recommendations by ID as noted below. Otherwise we will continue current management with antibiotics. It appears a fungal culture. ID was canceled but BAL done at that time grew normal shari. Will follow culture results at this time. Pulmonary input is appreciated. Anticipate discharge when symptomatic improvement is noted Covid test result is still pending. 12/11/2020; bronchoscopy tomorrow 12/12/2020 Patient n.p.o. from midnight, consultants recommendations noted and appreciated 12/12/2020; bronchoscopy scheduled for today Follow procedure findings, cultures 12/13/20 Patient is status post bronchoscopy yesterday. Patient denied any chest pain no shortness of breath We will follow the culture from BAL. Follow pulmonary recommendation Discharge plan when cleared by pulmonary. Continue penicillin G, neb treatment. 12/14/20 Patient is doing better. No shortness of breath no chest pain. No cough We will follow the culture for fungal AFB, BAL for fungal and AFB culture Continue antibiotic benzathine penicillin weekly x 3 for latent syphilis . Continue antiretroviral as per ID and pulmonary recommendation. Continue current management. Patient is o.k. no new complain. No shortness of breath. no cough We will follow the culture for fungal AFB, BAL for fungal and AFB culture Continue antibiotic benzathine penicillin weekly x 3 for latent syphilis . Continue antiretroviral as per ID and pulmonary recommendation. Continue current management. 12/16/20 Patient is feels better. no shortness of breath. no cough We we are waiting for the result of the the culture for fungal AFB, BAL for f ungal and AFB culture Continue antibiotic benzathine penicillin weekly x 3 for latent syphilis . Co ntinue antiretroviral as per ID and pulmonary recommendation. Continue current management. Discharge plan when cleared by infectious disease and pulmonary 12/17/20 Patient is seen and examined Patient is clinically same. no shortness of breath. no cough We we are waiting for the result of the the culture for fungal AFB, BAL for fungal and AFB culture Continue antibiotic benzathine penicillin weekly x 3 for latent syphilis . Continue antiretroviral Biktarvy as per ID recommendation. Continue current management. Discharge plan when cleared by infectious disease and pulmonary History Interval history: Patient is seen and examined. Patient chart and medication reviewed Patient is clinically same. No shortness of breath no coughing. No fever No new complaints. Vital signs are stable Hospitalist Physical - Constitutional Vitals: Temp Pulse Resp BP Pulse Ox 97.8 F 90 16 102/64 92 12/17/20 04:18 12/17/20 04:18 12/17/20 04:18 12/17/20 04:18 12/17/20 08:07 General appearance: Present: no acute distress, well-nourished - EENT Eyes: Present: PERRL, EOM intact ENT: hearing intact, clear oral mucosa - Neck Neck: Present: supple, normal ROM - Respiratory Respiratory effort: normal Respiratory: bilateral: CTA - Cardiovascular Rhythm: regular Heart Sounds: Present: S1 & S2 - Extremities Extremities: no ischemia Peripheral Pulses: within normal limits - Abdominal General gastrointestinal: soft, non-tender, non-distended, normal bowel sounds - Integumentary Integumentary: Present: warm, dry - Psychiatric Psychiatric: appropriate mood/affect, intact judgment & insight - Neurologic Neurologic: CNII-XII intact, moves all extremities - Allied Health Allied health notes reviewed: nursing HEART Score - HEART Score Troponin: Troponin T < 0.010 ng/mL (0.00-0.029) 12/06/20 01:50 Results - Labs CBC & Chem 7: 12/13/20 06:30 12/13/20 06:30 Labs: Laboratory Last Values WBC 4.2 K/mm3 (4.5-11.0) L 12/13/20 06:30 RBC 4.04 M/mm3 (3.65-5.03) 12/13/20 06:30 Hgb 10.1 gm/dl (11.8-15.2) L 12/13/20 06:30 Hct 31.7 % (35.5-45.6) L 12/13/20 06:30 MCV 78 fl (84-94) L 12/13/20 06:30 MCH 25 pg (28-32) L 12/13/20 06:30 MCHC 32 % (32-34) 12/13/20 06:30 RDW 17.7 % (13.2-15.2) H 12/13/20 06:30 Plt Count 517 K/mm3 (140-440) H 12/13/20 06:30 Lymph % (Auto) 17.2 % (13.4-35.0) 12/13/20 06:30 [place] % (Auto) 8.8 % (0.0-7.3) H 12/13/20 06:30 Eos % (Auto) 3.0 % (0.0-4.3) 12/13/20 06:30 Baso % (Auto) 0.4 % (0.0-1.8) 12/13/20 06:30 Lymph # (Auto) 0.7 K/mm3 (1.2-5.4) L 12/13/20 06:30 [place] # (Auto) 0.4 K/mm3 (0.0-0.8) 12/13/20 06:30 Eos # (Auto) 0.1 K/mm3 (0.0-0.4) 12/13/20 06:30 Baso # (Auto) 0.0 K/mm3 (0.0-0.1) 12/13/20 06:30 Seg Neutrophils % 70.6 % (40.0-70.0) H 12/13/20 06:30 Seg Neutrophils # 2.9 K/mm3 (1.8-7.7) 12/13/20 06:30 Abs Lymphs (Manual) 354 cells/uL (850-3900) L 12/06/20 15:54 PT 14.4 Sec. (12.2-14.9) 12/07/20 06:25 INR 1.13 (0.87-1.13) 12/07/20 06:25 APTT 36.5 Sec. (24.2-36.6) 12/06/20 01:50 D-Dimer 636.67 ng/mlDDU (0-234) H 12/06/20 01:50 Sodium 137 mmol/L (137-145) 12/13/20 06:30 Potassium 4.2 mmol/L (3.6-5.0) 12/13/20 06:30 Chloride 103.4 mmol/L (98-107) 12/13/20 06:30 Carbon Dioxide 26 mmol/L (22-30) 12/13/20 06:30 Anion Gap 12 mmol/L 12/13/20 06:30 BUN 8 mg/dL (9-20) L 12/13/20 06:30 Creatinine 0.7 mg/dL (0.8-1.3) L 12/13/20 06:30 Estimated GFR > 60 ml/min 12/13/20 06:30 BUN/Creatinine Ratio 11 % 12/13/20 06:30 Glucose 87 mg/dL (75-100) 12/13/20 06:30 Calcium 8.1 mg/dL (8.4-10.2) L 12/13/20 06:30 Ferritin 195.2 ng/mL (30.0-300.0) 12/06/20 01:50 Total Bilirubin 0.20 mg/dL (0.1-1.2) 12/06/20 01:50 AST 12 units/L (5-40) 12/06/20 01:50 ALT 5 units/L (7-56) L 12/06/20 01:50 Alkaline Phosphatase 55 units/L (35-129) 12/06/20 01:50 Lactate Dehydrogenase 212 units/L (91-180) H 12/06/20 01:50 Lactate Dehydrogenase 222 units/L (91-180) H 12/06/20 01:50 Troponin T < 0.010 ng/mL (0.00-0.029) 12/06/20 01:50 C-Reactive Protein 3.90 mg/dL (0.00-1.30) H 12/06/20 01:50 NT-Pro-B Natriuret Pep 98.86 pg/mL (0-450) 12/06/20 01:50 Total Protein 6.9 g/dL (6.3-8.2) 12/06/20 01:50 Albumin 2.8 g/dL (3.9-5) L 12/06/20 01:50 Albumin/Globulin Ratio 0.7 % 12/06/20 01:50 Procalcitonin 0.06 ng/mL (<0.15) 12/06/20 01:50 Lymph Enumerat CD4/CD8 0.37 (0.86-5.00) L 12/06/20 15:54 % CD3 Cells 39 % (57-85) L 12/06/20 15:54 Absolute CD3 Count 139 cells/uL (840-3060) L 12/06/20 15:54 % CD4 Cells 10 % (30-61) L 12/06/20 15:54 Absolute CD4 Count 35 cells/uL (490-1740) L 12/06/20 15:54 % CD8 Cells 27 % (12-42) 12/06/20 15:54 Absolute CD8 Count 94 cells/uL (180-1170) L 12/06/20 15:54 % CD19 Cells 6 % (6-29) 12/06/20 15:54 Absolute CD19 Count 20 cells/uL (110-660) L 12/06/20 15:54 Syphilis IgG Antibody Reactive (NonReactive) A 12/07/20 14:36 RPR Titer 1:2 12/07/20 14:36 Coronavirus (PCR) Negative (Negative) 12/06/20 09:50 HIV-1 RNA PCR copies/ml 51 Copies/mL H 12/06/20 15:54 HIV-1 RNA (PCR) log 1.71 Log cps/mL H 12/06/20 15:54 AFB Identification Negative 12/09/20 21:30 Fungal Id Prelim 12/08/20 08:23 Miscellaneous Test Flexitest 1 12/11/20 10:29 Thakur/IV: Voiding Method Toilet Active Medications - Current Medications Current Medications: Generic Name Dose Route Start Last Admin Trade Name Freq PRN Reason Stop Dose Admin Acetaminophen 650 mg 12/06/20 03:46 12/07/20 22:00 Acetaminophen 325 Mg Tab PO 650 mg Q4H PRN Administration Pain MILD(1-3)/Fever >100.5/LIU Albuterol/Ipratropium 1 ampul 12/09/20 20:00 12/17/20 08:07 Ipratropium/Albuterol Sulfate 3 Ml Ampul.Neb IH Not Given TIDRT CEFERINO Benzonatate 100 mg 12/06/20 14:00 12/17/20 06:04 Benzonatate 100 Mg Cap PO 100 mg Q8HR CEFERINO Administration Emtricitabine 200 mg 12/06/20 10:00 12/17/20 09:47 Emtricitabine 200 Mg Cap PO 200 mg QDAY CEFERINO Administration Enoxaparin Sodium 40 mg 12/06/20 22:00 12/16/20 22:04 Enoxaparin 40 Mg/0.4 Ml Inj SUB-Q 40 mg QDAY@2200 CEFERINO Administration Protocol Guaifenesin 200 mg 12/07/20 21:29 12/09/20 17:58 Guaifenesin 100 Mg/5 Ml Oral Liqd PO 200 mg Q4H PRN Administration Cough Hydrocodone Bit/Homatropine Methylb 10 ml 12/12/20 13:52 Hydrocodone/Homatropine 5-1.5mg /5 Ml Oral Liqd Unit Dose PO Q6H PRN Cough Sodium Chloride 1,000 mls @ 50 mls/hr 12/12/20 10:45 Nacl 0.9% 1000 Ml IV DIRECT CEFERINO Morphine Sulfate 2 mg 12/06/20 03:46 Morphine 2 Mg/1 Ml Inj IV Q4H PRN Pain, Moderate (4-6) Ondansetron HCl 4 mg 12/06/20 03:46 Ondansetron 4 Mg/2 Ml Inj IV Q8H PRN Nausea And Vomiting Penicillin G Benzathine 2.4 mil.units 12/10/20 15:00 12/10/20 14:49 Penicillin G Benzathine 1.2 Million Unit/2 Ml Inj IM 12/24/20 15:01 2.4 mil.units Q7D CEFERINO Administration Sodium Chloride 10 ml 12/06/20 10:00 12/17/20 09:47 Sodium Chloride 0.9% 10 Ml Flush Syringe IV 10 ml BID CEFERINO Administration Sodium Chloride 10 ml 12/06/20 03:46 Sodium Chloride 0.9% 10 Ml Flush Syringe IV PRN PRN LINE FLUSH Tenofovir Disoproxil Fumarate 300 mg 12/06/20 10:00 12/17/20 09:47 Tenofovir 300 Mg Tab PO 300 mg QDAY CEFERINO Administration Trimethoprim/Sulfamethoxazole 1 each 12/13/20 13:00 12/17/20 09:47 Sulfamethoxazole/Trimethoprim 800/160mg Ds Tab PO 1 each DAILY CEFERINO Administration Protocol Nutrition/Malnutrition Assess - Dietary Evaluation Nutrition/Malnutrition Findings: Nutrition Notes Start: 12/13/20 10:03 Freq: Status: Active Protocol: Document 12/13/20 10:03 AT (Rec: 12/13/20 10:05 AT [id number]) Co-Sign 12/13/20 10:03 Nutrition Notes Need for Assessment generated from: LOS Initial or Follow up Assessment Current Diagnosis Respiratory Failure Other Pertinent Diagnosis HIV, SOB, bilat pneu, COVID-19 (-) Current Diet Regular Diet Labs/Tests BUN 8 Cr 0.7 Ca 8.1 Pertinent Medications NS at 50 mL/hr Height 5 ft 8 in Weight 88.5 kg [place] Body Weight (kg) 70.00 BMI 29.6 Weight Status Overweight Subjective/Other Information Screen for LOS. Could not reach pt by phone x2. Per chart, pt was consuming between 75-100% of meals for several days. Per RN, pt has consumed 50% of meals for the past two days. [employer] was unable to complete nutrition- focused physical exam. Pt may be at nutritional risk given chronic illness, SOB presentation, and declining meal consumption. Percent of energy/protein needs met: 49%/63% Burn Absent Trauma Absent GI Symptoms None Current % PO Fair (50-74%) Minimum of two criteria No physical signs of malnutrition #1 Nutrition Diagnosis Inadequate oral intake Etiology SOB, Respiratory Failure As Evidenced by Signs and Symptoms pt consuming 50% of meals Is patient on ventilator? No Is Patient Ambulatory and/or Out of Bed No REE-([place]-[facility] Jeor-confined to bed) [phone] Calculation Used [facility]ations [facility] Additional Notes PRO needs: 71-86g (0.8-1g/kg ABW) Fluid needs: 1 mL/kcal or per MD Nutrition Intervention Change Diet Order: Continue diet as ordered Add Supplement/Snack (indicate name/kcal Ensure Enlive daily /protein ) Provides kCal: 350 Provides Protein (gm) 20 Goal #1 Meet at least 75% of EER and protein needs via diet and ONS Goal #2 Weight maintenance Anticipated Discharge Needs: Regular diet Follow-Up By: 12/17/20 Additional Comments F/U stable intakes, ONS tolerance - Malnutrition Assessment Minimum of two criteria: No physical signs of malnutrition - Attestation Statement I have reviewed and agreed w/ Malnutrition eval & tx plan: Yes
--- NOTE | 2020-12-17 14:14 | Progress Note ---
Assessment and Plan 35-year-old male with known history of HIV with unknown CD4 count presented to the emergency room complaining of shortness of breath and difficulty breathing of 2-3 day duration. Patient chest x-ray showed bilateral pneumonia. Patient admitted for pneumonia. Patient has bronchoscopy . Patient alert and awake. Resting on 2L O2. O2 saturation 95%. No acute respiratory distress. Patient has no history of smoking, alcohol, or drug use. 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 No known drug allergies. Patient afebrile and leukopenia slightly improved WBC count 4.2.. Chest X-ray done on 12/06/20. Chest x-ray showed bilateral parenchymal disease, much greater on the right than the left, is again identified. Mild disease in the left upper lobe has improved. Post bronchoscopy chest xray 12/12/20 reported Extensive right lung parenchymal disease persists unchanged. Minimal disease persists on the left. No definite new disease. Bronchoscopy specimen results still pending. Patient presently on penicillin-G, Bactrim, albuterol/ipratropium, lovanox, benzonatate. - Patient Problems (1) Acute respiratory failure Current Visit: Yes Status: Acute Plan to address problem: Patient on 2 L O2. O2 saturation 95%. Albuterol/Ipratropium aerosol treatments. Continue s/c lovanox. (2) Bilateral pneumonia Current Visit: Yes Status: Acute Plan to address problem: Patient is on penicillin-G and bactrim. (3) Suspected COVID-19 virus infection Current Visit: Yes Status: Acute Plan to address problem: Negative COVID-19 serology. (4) HIV antibody positive Current Visit: No Status: Acute Plan to address problem: Management per ID. Subjective Date of service: 12/17/20 Principal diagnosis: Ac hypoxemic resp failure; Pneumonia; HIV+ve; PUI COVID-19; Anemia Interval history: 35-year-old male with known history of HIV with unknown CD4 count presented to the emergency room complaining of shortness of breath and difficulty breathing of 2-3 day duration. Patient chest x-ray showed bilateral pneumonia. Patient admitted for pneumonia. Patient has bronchoscopy . Patient alert and awake. Resting on 2L O2. O2 saturation 95%. No acute r espiratory distress. Patient has no history of smoking, alcohol, or drug use. 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 No known drug allergies. Patient afebrile and leukopenia slightly improved WBC count 4.2.. Chest X-ray done on 12/06/20. Chest x-ray showed bilateral parenchymal disease, much greater on the right than the left, is again identified. Mild disease in the left upper lobe has improved. Post bronchoscopy chest xray 12/12/20 reported Extensive right lung parenchymal disease persists unchanged. Minimal disease persists on the left. No definite new disease. Bronchoscopy specimen results still pending. Patient presently on penicillin-G, Bactrim, albuterol/ipratropium, lovanox, benzonatate. Objective Vital Signs - 12hr 12/17/20 12/17/20 12/17/20 04:18 08:07 11:33 Temperature 97.8 F 98.3 F Pulse Rate 90 80 Respiratory 16 18 Rate Blood Pressure 102/64 97/61 O2 Sat by Pulse 93 92 96 Oximetry Constitutional: no acute distress, alert Eyes: non-icteric ENT: oropharynx moist Neck: supple, no lymphadenopathy, no JVD Effort: normal Ascultation: Bilateral: rales (R>L), rhonchi Percussion: Bilateral: not dull Cardiovascular: regular rate and rhythm Gastrointestinal: normoactive bowel sounds, soft, non-tender, non-distended Integumentary: rash (to legs) Extremities: no cyanosis, pulses normal, no ischemia or petechiae, edema (1+) Neurologic: non-focal exam, pupils equal and round, CN II-XII normal, motor strength normal and Psychiatric: mood appropriate, affect normal CBC and BMP: 12/13/20 06:30 12/13/20 06:30 ABG, PT/INR, D-dimer: PT/INR, D-dimer PT 14.4 Sec. (12.2-14.9) 12/07/20 06:25 INR 1.13 (0.87-1.13) 12/07/20 06:25 D-Dimer 636.67 ng/mlDDU (0-234) H 12/06/20 01:50 Abnormal lab findings: Abnormal Labs 12/06/20 12/06/20 12/06/20 01:50 01:50 01:50 WBC 4.4 L Hgb 10.9 L Hct 34.2 L MCV 78 L MCH 25 L RDW 18.0 H Plt Count 494 H [place] % (Auto) 9.7 H Eos % (Auto) 7.1 H Lymph # (Auto) 1.0 L Seg Neutrophils % Seg Neutrophils # Abs Lymphs (Manual) INR D-Dimer Sodium 135 L Potassium BUN 8 L Creatinine Glucose 102 H Calcium 7.7 L ALT 5 L Lactate Dehydrogenase 212 H C-Reactive Protein Albumin 2.8 L Lymph Enumerat CD4/CD8 % CD3 Cells Absolute CD3 Count % CD4 Cells Absolute CD4 Count Absolute CD8 Count Absolute CD19 Count Syphilis IgG Antibody HIV-1 RNA PCR copies/ml HIV-1 RNA (PCR) log 12/06/20 12/06/20 12/06/20 01:50 01:50 01:50 WBC Hgb Hct MCV MCH RDW Plt Count [place] % (Auto) Eos % (Auto) Lymph # (Auto) Seg Neutrophils % Seg Neutrophils # Abs Lymphs (Manual) INR 1.16 H D-Dimer 636.67 H Sodium Potassium BUN Creatinine Glucose 103 H Calcium ALT Lactate Dehydrogenase 222 H C-Reactive Protein 3.90 H Albumin Lymph Enumerat CD4/CD8 % CD3 Cells Absolute CD3 Count % CD4 Cells Absolute CD4 Count Absolute CD8 Count Absolute CD19 Count Syphilis IgG Antibody HIV-1 RNA PCR copies/ml HIV-1 RNA (PCR) log 12/06/20 12/06/20 12/07/20 15:54 15:54 06:25 WBC 2.9 L Hgb 9.8 L Hct 30.7 L MCV 79 L MCH 25 L RDW 17.5 H Plt Count 484 H [place] % (Auto) 14.9 H Eos % (Auto) Lymph # (Auto) 0.8 L Seg Neutrophils % Seg Neutrophils # 1.7 L Abs Lymphs (Manual) 354 L INR D-Dimer Sodium Potassium BUN Creatinine Glucose Calcium ALT Lactate Dehydrogenase C-Reactive Protein Albumin Lymph Enumerat CD4/CD8 0.37 L % CD3 Cells 39 L Absolute CD3 Count 139 L % CD4 Cells 10 L Absolute CD4 Count 35 L Absolute CD8 Count 94 L Absolute CD19 Count 20 L Syphilis IgG Antibody HIV-1 RNA PCR copies/ml 51 H HIV-1 RNA (PCR) log 1.71 H 12/07/20 12/07/20 12/08/20 06:25 14:36 08:37 WBC 2.9 L Hgb 11.2 L Hct 34.7 L MCV 80 L MCH 26 L RDW 17.9 H Plt Count 519 H [place] % (Auto) Eos % (Auto) Lymph # (Auto) Seg Neutrophils % Seg Neutrophils # Abs Lymphs (Manual) INR D-Dimer Sodium Potassium 3.3 L BUN Creatinine Glucose 115 H Calcium 7.7 L ALT Lactate Dehydrogenase C-Reactive Protein Albumin Lymph Enumerat CD4/CD8 % CD3 Cells Absolute CD3 Count % CD4 Cells Absolute CD4 Count Absolute CD8 Count Absolute CD19 Count Syphilis IgG Antibody Reactive A HIV-1 RNA PCR copies/ml HIV-1 RNA (PCR) log 12/08/20 12/12/20 12/12/20 08:37 10:29 10:29 WBC 2.8 L Hgb 11.6 L Hct MCV 80 L MCH 25 L RDW 17.2 H Plt Count 588 H [place] % (Auto) 11.4 H Eos % (Auto) Lymph # (Auto) 0.8 L Seg Neutrophils % Seg Neutrophils # 1.5 L Abs Lymphs (Manual) INR D-Dimer Sodium 135 L Potassium 3.3 L BUN 8 L 7 L Creatinine Glucose Calcium 8.0 L ALT Lactate Dehydrogenase C-Reactive Protein Albumin Lymph Enumerat CD4/CD8 % CD3 Cells Absolute CD3 Count % CD4 Cells Absolute CD4 Count Absolute CD8 Count Absolute CD19 Count Syphilis IgG Antibody HIV-1 RNA PCR copies/ml HIV-1 RNA (PCR) log 12/13/20 12/13/20 06:30 06:30 WBC 4.2 L Hgb 10.1 L Hct 31.7 L MCV 78 L MCH 25 L RDW 17.7 H Plt Count 517 H [place] % (Auto) 8.8 H Eos % (Auto) Lymph # (Auto) 0.7 L Seg Neutrophils % 70.6 H Seg Neutrophils # Abs Lymphs (Manual) INR D-Dimer Sodium Potassium BUN 8 L Creatinine 0.7 L Glucose Calcium 8.1 L ALT Lactate Dehydrogenase C-Reactive Protein Albumin Lymph Enumerat CD4/CD8 % CD3 Cells Absolute CD3 Count % CD4 Cells Absolute CD4 Count Absolute CD8 Count Absolute CD19 Count Syphilis IgG Antibody HIV-1 RNA PCR copies/ml HIV-1 RNA (PCR) log Allied health notes reviewed: nursing
[2020-12-17] MEDS: PENICILLIN G BENZATHINE 1.2 MILLION UNIT/2 ML INJ IM SCH (14:42)
--- NOTE | 2020-12-17 17:36 | Progress Note ---
Assessment and Plan Cultures: Previous chart and cultures reviewed. 12/06/2020 blood culture: no growth 12/06/2020 serum cryptococcal antigen: Negative 12/06/2020 fungal blood culture: In process 12/07/2020 sputum culture: Oral contamination Syphilis IgG positive, 12/07/2020 RPR titer: 1:2 12/06/2020 HIV RNA PCR: 51 12/08/2020 sputum smear for fungus and AFB: Negative A/P: 35-year-old male with HIV, recent admission in October 2020 with COVID-19 was admitted to the hospital with complaints of cough and shortness of breath: #Bilateral pneumonia, worse on right compared to left. This is chronic and has been present since 2019. Underwent a bronchoscopy by Dr. Ardon in October 2019. BAL culture grew usual respiratory shari, it seems fungal culture got canceled. Fungal stain was positive for hyphae and spores, negative for PJP. His CT scan in August 2020 showed a persistent masslike consolidation in the right hilar region. Repeat CT showed right hilar mass with infiltrates and mediastinal lymphadenopathy. s/p empiric abx: Ceftriaxone. S/p transbronchial biopsy histo path negative for malignancy, fungal stain negative, AFB stain negative; Aspergillus antigen negative, cocci serology negative. #Splenic hypodensities noted on previous CT scan. Splenic lesions appear improved on CT scan. Also seen was inguinal and retroperitoneal lymphadenopathy. #HIV: Compliant with Biktarvy. Viral load remains low, CD4 count 35, 10%. #Bilateral lower extremity purplish lesions: These were biopsied by dermatology outpatient, patient did not follow-up to get the results. 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 Treat with benzathine penicillin weekly x3 #Leukopenia, reactive thrombocytosis Recs: -f/u AFB blood culture, fungal blood culture, histoplasma and blasto urinary antigens -Obtain Fungitell -Continue Biktarvy, therapeutic interchange to TDF, emtricitabine, dolutegravir as per hospital formulary -benzathine penicillin weekly x 3 for late latent syphilis. got 1 dose 12/10/2020 -f/u outside derm biopsy results if possible, but patient does not remember the non cdl driver he went to -continue PO bactrim DS 1 tab daily for OI prophylaxis -Okay to discharge home on ID clinic follow-up in 2 weeks Dania Singleton MD [facility] ([facility]) Office [phone] Subjective Date of service: 12/17/20 Principal diagnosis: Ac hypoxemic resp failure; Pneumonia; HIV+ve; PUI COVID-19; Anemia Interval history: Patient feels better. No complaints. No fever. Objective - Exam Narrative Exam: General appearance: Alert in NAD pleasant Eyes: anicteric sclerae, moist conjunctivae; no lid-lag; PERRLA HENT: Normocephalic, Atraumatic; normal external ears, nares open, oropharynx clear Neck: supple, tracheal midline, no JVD Lungs: Scattered bilateral crackles CV: RRR no murmur Abdomen: Soft, non-tender; no masses or hepatosplenomegaly Extremities: no edema, no cyanosis Skin: No rash. Psych: no agitated Neuro: alert and oriented x 3. Moving all extermities - Constitutional Vitals: Vital Signs Temp Pulse Resp BP Pulse Ox 98.3 F 80 18 97/61 96 12/17/20 11:33 12/17/20 11:33 12/17/20 11:33 12/17/20 11:33 12/17/20 11:33 Temperature -Last 24 Hours Temperature 98.3 F Temperature 97.8 F Temperature 97.9 F - Labs CBC & Chem 7: 12/13/20 06:30 12/13/20 06:30
[2020-12-17] MEDS: ENOXAPARIN 40 MG/0.4 ML INJ SUB-Q SCH (22:22)
[2020-12-18] MEDS: IPRATROPIUM/ALBUTEROL SULFATE 3 ML AMPUL.NEB IH SCH ×3 (02:34→15:26)
[2020-12-18] MEDS: BENZONATATE 100 MG CAP PO SCH (06:03)
[2020-12-18] MEDS: DOLUTEGRAVIR 50 MG TAB PO SCH (10:37)
[2020-12-18] MEDS: EMTRICITABINE 200 MG CAP PO SCH (10:37)
[2020-12-18] MEDS: SULFAMETHOXAZOLE/TRIMETHOPRIM 800/160MG DS TAB PO SCH (10:38)
[2020-12-18] MEDS: TENOFOVIR 300 MG TAB PO SCH (10:38)
--- NOTE | 2020-12-18 11:10 | Progress Note ---
Assessment and Plan 35-year-old male with known history of HIV with unknown CD4 count presented to the emergency room complaining of shortness of breath and difficulty breathing of 2-3 day duration. Patient chest x-ray showed bilateral pneumonia. Patient admitted for pneumonia. Patient has bronchoscopy . Patient alert and awake. Resting on 2L O2. O2 saturation 98%. No acute respiratory distress. Patient has no history of smoking, alcohol, or drug use. 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 No known drug allergies. Patient afebrile and leukopenia slightly improved WBC count 4.2.. Chest X-ray done on 12/06/20. Chest x-ray showed bilateral parenchymal disease, much greater on the right than the left, is again identified. Mild disease in the left upper lobe has improved. Post bronchoscopy chest xray 12/12/20 reported Extensive right lung parenchymal disease persists unchanged. Minimal disease persists on the left. No definite new disease. Bronchoscopy specimen results still pending. Patient presently on penicillin-G, Bactrim, albuterol/ipratropium, lovanox, benzonatate. - Patient Problems (1) Acute respiratory failure Status: Acute Plan to address problem: Patient on 2 L O2. O2 saturation 98%. Albuterol/Ipratropium aerosol treatments. Continue s/c lovenox. (2) Bilateral pneumonia Status: Acute Plan to address problem: Patient is on penicillin-G and bactrim. (3) Suspected COVID-19 virus infection Status: Acute Plan to address problem: Negative COVID-19 serology. (4) HIV antibody positive Status: Acute Plan to address problem: Management per ID. Subjective Date of service: 12/18/20 Principal diagnosis: Ac hypoxemic resp failure; Pneumonia; HIV+ve; PUI COVID-19; Anemia Interval history: 35-year-old male with known history of HIV with unknown CD4 count presented to the emergency room complaining of shortness of breath and difficulty breathing of 2-3 day duration. Patient chest x-ray showed bilateral pneumonia. Patient admitted for pneumonia. Patient has bronchoscopy . Patient alert and awake. Resting on 2L O2. O2 saturation 98%. No acute respiratory distress. Patient has no history of smoking, alcohol, or drug use. 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 No known drug allergies. Patient afebrile and leukopenia slightly improved WBC count 4.2.. Chest X-ray done on 12/06/20. Chest x-ray showed bilateral parenchymal disease, much greater on the right than the left, is again identified. Mild disease in the left upper lobe has improved. Post bronchoscopy chest xray 12/12/20 reported Extensive right lung parenchymal disease persists unchanged. Minimal disease persists on the left. No definite new disease. Bronchoscopy specimen results still pending. Patient presently on penicillin-G, Bactrim, albuterol/ipratropium, lovanox, benzonatate. Objective Vital Signs - 12hr 12/18/20 12/18/20 12/18/20 04:36 09:02 09:15 Temperature 98.4 F Pulse Rate 85 Pulse Rate [ 90 Anterior Bilateral Throughout] Pulse Rate [ 90 Bilateral] Respiratory 18 18 Rate Respiratory 20 Rate [Anterior Bilateral Throughout] Respiratory 20 Rate [Bilateral ] Blood Pressure 97/68 O2 Sat by Pulse 96 Oximetry Constitutional: no acute distress, alert Eyes: non-icteric ENT: oropharynx moist Neck: supple, no lymphadenopathy, no JVD Effort: normal Ascultation: Bilateral: rales (R>L), rhonchi Percussion: Bilateral: not dull Cardiovascular: regular rate and rhythm Gastrointestinal: normoactive bowel sounds, soft, non-tender, non-distended Integumentary: rash (to legs) Extremities: no cyanosis, pulses normal, no ischemia or petechiae, edema (1+) Neurologic: non-focal exam, pupils equal and round, CN II-XII normal, motor strength normal and Psychiatric: mood appropriate, affect normal CBC and BMP: 12/13/20 06:30 12/13/20 06:30 ABG, PT/INR, D-dimer: PT/INR, D-dimer PT 14.4 Sec. (12.2-14.9) 12/07/20 06:25 INR 1.13 (0.87-1.13) 12/07/20 06:25 D-Dimer 636.67 ng/mlDDU (0-234) H 12/06/20 01:50 Abnormal lab findings: Abnormal Labs 12/06/20 12/06/20 12/06/20 01:50 01:50 01:50 WBC 4.4 L Hgb 10.9 L Hct 34.2 L MCV 78 L MCH 25 L RDW 18.0 H Plt Count 494 H [place] % (Auto) 9.7 H Eos % (Auto) 7.1 H Lymph # (Auto) 1.0 L Seg Neutrophils % Seg Neutrophils # Abs Lymphs (Manual) INR D-Dimer Sodium 135 L Potassium BUN 8 L Creatinine Glucose 102 H Calcium 7.7 L ALT 5 L Lactate Dehydrogenase 212 H C-Reactive Protein Albumin 2.8 L Lymph Enumerat CD4/CD8 % CD3 Cells Absolute CD3 Count % CD4 Cells Absolute CD4 Count Absolute CD8 Count Absolute CD19 Count Syphilis IgG Antibody HIV-1 RNA PCR copies/ml HIV-1 RNA (PCR) log 12/06/20 12/06/20 12/06/20 01:50 01:50 01:50 WBC Hgb Hct MCV MCH RDW Plt Count [place] % (Auto) Eos % (Auto) Lymph # (Auto) Seg Neutrophils % Seg Neutrophils # Abs Lymphs (Manual) INR 1.16 H D-Dimer 636.67 H Sodium Potassium BUN Creatinine Glucose 103 H Calcium ALT Lactate Dehydrogenase 222 H C-Reactive Protein 3.90 H Albumin Lymph Enumerat CD4/CD8 % CD3 Cells Absolute CD3 Count % CD4 Cells Absolute CD4 Count Absolute CD8 Count Absolute CD19 Count Syphilis IgG Antibody HIV-1 RNA PCR copies/ml HIV-1 RNA (PCR) log 12/06/20 12/06/20 12/07/20 15:54 15:54 06:25 WBC 2.9 L Hgb 9.8 L Hct 30.7 L MCV 79 L MCH 25 L RDW 17.5 H Plt Count 484 H [place] % (Auto) 14.9 H Eos % (Auto) Lymph # (Auto) 0.8 L Seg Neutrophils % Seg Neutrophils # 1.7 L Abs Lymphs (Manual) 354 L INR D-Dimer Sodium Potassium BUN Creatinine Glucose Calcium ALT Lactate Dehydrogenase C-Reactive Protein Albumin Lymph Enumerat CD4/CD8 0.37 L % CD3 Cells 39 L Absolute CD3 Count 139 L % CD4 Cells 10 L Absolute CD4 Count 35 L Absolute CD8 Count 94 L Absolute CD19 Count 20 L Syphilis IgG Antibody HIV-1 RNA PCR copies/ml 51 H HIV-1 RNA (PCR) log 1.71 H 12/07/20 12/07/20 12/08/20 06:25 14:36 08:37 WBC 2.9 L Hgb 11.2 L Hct 34.7 L MCV 80 L MCH 26 L RDW 17.9 H Plt Count 519 H [place] % (Auto) Eos % (Auto) Lymph # (Auto) Seg Neutrophils % Seg Neutrophils # Abs Lymphs (Manual) INR D-Dimer Sodium Potassium 3.3 L BUN Creatinine Glucose 115 H Calcium 7.7 L ALT Lactate Dehydrogenase C-Reactive Protein Albumin Lymph Enumerat CD4/CD8 % CD3 Cells Absolute CD3 Count % CD4 Cells Absolute CD4 Count Absolute CD8 Count Absolute CD19 Count Syphilis IgG Antibody Reactive A HIV-1 RNA PCR copies/ml HIV-1 RNA (PCR) log 12/08/20 12/12/20 12/12/20 08:37 10:29 10:29 WBC 2.8 L Hgb 11.6 L Hct MCV 80 L MCH 25 L RDW 17.2 H Plt Count 588 H [place] % (Auto) 11.4 H Eos % (Auto) Lymph # (Auto) 0.8 L Seg Neutrophils % Seg Neutrophils # 1.5 L Abs Lymphs (Manual) INR D-Dimer Sodium 135 L Potassium 3.3 L BUN 8 L 7 L Creatinine Glucose Calcium 8.0 L ALT Lactate Dehydrogenase C-Reactive Protein Albumin Lymph Enumerat CD4/CD8 % CD3 Cells Absolute CD3 Count % CD4 Cells Absolute CD4 Count Absolute CD8 Count Absolute CD19 Count Syphilis IgG Antibody HIV-1 RNA PCR copies/ml HIV-1 RNA (PCR) log 12/13/20 12/13/20 06:30 06:30 WBC 4.2 L Hgb 10.1 L Hct 31.7 L MCV 78 L MCH 25 L RDW 17.7 H Plt Count 517 H [place] % (Auto) 8.8 H Eos % (Auto) Lymph # (Auto) 0.7 L Seg Neutrophils % 70.6 H Seg Neutrophils # Abs Lymphs (Manual) INR D-Dimer Sodium Potassium BUN 8 L Creatinine 0.7 L Glucose Calcium 8.1 L ALT Lactate Dehydrogenase C-Reactive Protein Albumin Lymph Enumerat CD4/CD8 % CD3 Cells Absolute CD3 Count % CD4 Cells Absolute CD4 Count Absolute CD8 Count Absolute CD19 Count Syphilis IgG Antibody HIV-1 RNA PCR copies/ml HIV-1 RNA (PCR) log Allied health notes reviewed: nursing
--- NOTE | 2020-12-18 12:13 | Discharge Summary ---
Providers - Providers Date of Admission: 12/06/20 03:21 Attending physician: JANAE HARDWICK MD 12/06/20 03:46 Consult to Physician [CONS] Routine Comment: Consulting Provider: TJ FOLEY Physician Instructions: Reason For Exam: Pneumonia R/O Covid-19, HIV positive 12/06/20 12:39 Consult to Physician [CONS] Routine Comment: Consulting Provider: ASHISH AVILEZ Physician Instructions: Reason For Exam: respiratory failure, 12/07/20 07:37 Consult to Wound/ET Nurse [CONS] Routine Reason For Exam: wound eval 12/07/20 20:01 Consult to Physician [CONS] Routine Comment: Consulting Provider: CORDELIA MCGOWAN Physician Instructions: Reason For Exam: hiv cardiomyopathy Primary care physician: [employer] [employer] [facility] Hospitalization Reason for admission: shortness of breath Condition: Stable Hospital course: 35-year-old male with known history of HIV with unknown CD4 count presenting to the emergency room today complaining of shortness of breath and difficulty breathing. Symptoms were said to have been ongoing for the past 2 to 3 days. Shortness of breath is worse on exertion. He denies any fever or chills, no chest pain, no nausea vomiting, no abdominal pain, no diarrhea, no headache or dizziness, no diaphoresis. Patient states that he tested positive for COVID-19 about a month ago but later tested negative about 2 weeks later. Upon arrival in the emergency room patient was hypoxic with O2 sats of 89% on room air. Chest x-ray reveals: Bilateral parenchymal disease,right greater than left, admitted with bilateral pneumonia with hypoxia. COVID-19 ruled out 12/06:Patient seen and examined today resting comfortably although still with shortness of breath on supine position reports cough. Previous imaging study did reveal mass in the hilum area previous documentation by pulmonary shows that patient had a bronchoscopy in 2019 that showed negative cytology and only fungal entities noted. Will obtain an echocardiogram as none has been obtained in this patient with recurrent shortness of breath and hypoxic respiratory failure with underlying cough in supine position. Will await ID input and also will consult pulmonary. Continue current oxygen management 12/07: Patient underwent follow-up testing today including recommendations by ID as noted below. Otherwise we will continue current management with antibiotics. It appears a fungal culture. ID was canceled but BAL done at that time grew normal shari. Will follow culture results at this time. Pulmonary input is appreciated. Anticipate discharge when symptomatic improvement is noted Covid test result is still pending. 12/11/2020; bronchoscopy tomorrow 12/12/2020 Patient n.p.o. from midnight, consultants recommendations noted and appreciated 12/12/2020; bronchoscopy scheduled for today Follow procedure findings, cultures 12/13/20 Patient is status post bronchoscopy yesterday. Patient denied any chest pain no shortness of breath We will follow the culture from BAL. Follow pulmonary recommendation Discharge plan when cleared by pulmonary. Continue penicillin G, neb treatment. 12/14/20 Patient is doing better. No shortness of breath no chest pain. No cough We will follow the culture for fungal AFB, BAL for fungal and AFB culture Continue antibiotic benzathine penicillin weekly x 3 for latent syphilis . Continue antiretroviral as per ID and pulmonary recommendation. Continue current management. Patient is o.k. no new complain. No shortness of breath. no cough We will follow the culture for fungal AFB, BAL for fungal and AFB culture Continue antibiotic benzathine penicillin weekly x 3 for latent syphilis . Continue antiretroviral as per ID and pulmonary recommendation. Continue current management. 12/16/20 Patient is feels better. no shortness of breath. no cough We we are waiting for the result of the the culture for fungal AFB, BAL for fungal and AFB culture Continue antibiotic benzathine penicillin weekly x 3 for latent syphilis . Continue antiretroviral as per ID and pulmonary recommendation. Continue current management. Discharge plan when cleared by infectious disease and pulmonary 12/17/20 Patient is seen and examined Patient is clinically same. no shortness of breath. no cough We we are waiting for the result of the the culture for fungal AFB, BAL for fungal and AFB culture Continue antibiotic benzathine penicillin weekly x 3 for latent syphilis . Continue antiretroviral Biktarvy as per ID recommendation. Continue current management. Discharge plan when cleared by infectious disease and pulmonary 12/18: Patient clinically stable today not requiring oxygen. I recommended her discharge and to follow-up with ID, coding specialist and also vice president network. Azul harper needs to do this to follow-up with results of the bronchoscopy and also biopsies. He verbalized understanding. Treatment during hospitalization is as noted above f/u AFB blood culture, fungal blood culture, histoplasma and blasto urinary antigens -Obtain Fungitell -Continue Biktarvy, therapeutic interchange to TDF, emtricitabine, dolutegravir as per hospital formulary -benzathine penicillin weekly x 3 for late latent syphilis. got 1 dose 12/10/2020 -f/u outside derm biopsy results if possible, but patient does not remember the coding specialist he went to -continue PO bactrim DS 1 tab daily for OI prophylaxis -Okay to discharge home on ID clinic follow-up in 2 weeks #Bilateral lower extremity purplish lesions: These were biopsied by dermatology outpatient, patient did not follow-up to get the results. Patient does not remember which coding specialist he went to. Bilateral pneumonia Patient placed on empiric IV antibiotics. Procalcitonin is low, antibiotics DC'd Supportive care right hilar mass/ mediastinal lymphadenopathy Pulmonary following scheduled for bronchoscopy today 12/12/2020 N.p.o. status HIV antibody positive Unknown foot CD4 counts. Continue antiretroviral agent. Management per ID Hypoxia/requiring 2 L nasal cannula oxygen Secondary to the pneumonia. Evaluation for home oxygen at discharge. 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 Full code status Patient is a full code. Closely monitor the patient and adjust the management as needed Follow bronchoscopy findings follow BAL analysis and cultures Plan of care reviewed with the patient and his nurse Consultants and recommendations noted and appreciated Disposition: DC-01 TO HOME OR SELFCARE Final Discharge Diagnosis (Prints w/discharge instructions): Bilateral pneumonia Time spent for discharge: 35 mins Core Measure Documentation - Palliative Care Palliative Care/ Comfort Measures: Not Applicable - Core Measures Any of the following diagnoses?: none Exam - Physical Exam Narrative exam: General appearance: Present: no acute distress, well-nourished - EENT Eyes: Present: PERRL, EOM intact ENT: hearing intact, clear oral mucosa - Neck Neck: Present: supple, normal ROM - Respiratory Respiratory effort: normal Respiratory: bilateral: CTA - Cardiovascular Rhythm: regular Heart Sounds: Present: S1 & S2 - Extremities Extremities: no ischemia Peripheral Pulses: within normal limits - Abdominal General gastrointestinal: soft, non-tender, non-distended, normal bowel sounds - Integumentary Integumentary: Present: warm, lymph edema bilateral lower extremity with scattered nodules - Psychiatric Psychiatric: appropriate mood/affect, intact judgment & insight - Neurologic Neurologic: CNII-XII intact, moves all extremities - Allied Health Allied health notes reviewed: nursing - Constitutional Vitals: Temp Pulse Resp BP Pulse Ox 98.4 F 90 20 97/68 96 12/18/20 04:36 12/18/20 09:15 12/18/20 09:15 12/18/20 04:36 12/18/20 04:36 Plan Activity: advance as tolerated, fall precautions Diet: low fat Special Instructions: record daily BP diary Additional Instructions: must follow with primary doctor or infectiouse disease doctor to complete this medication benzathine penicillin weekly x 3 for late latent syphilis. got 1 dose 12/10/2020 Follow up with: PRIMARY MD GE [Primary Care Provider] - 3-5 Days ROSALBA SANCHEZ MD [Staff Physician] - 7 Days MARCELLO SIMPSON MD [Staff Physician] - 7 Days Prescriptions: Sulfamethoxazole/Trimethoprim [Bactrim DS TAB] 1 each PO DAILY #30 tablet Benzonatate [Tessalon Perles] 100 mg PO Q8HR #20 capsule Dolutegravir [Tivicay] 50 mg PO DAILY #30 tablet
[2020-12-18 13:03] VITALS: BP 104/72
== END 2020-12-18 14:00 | disposition home or self-care (01) | DRG 193 ==
LOC: ED 00:26 → 3A 03:21
PROVIDERS: ADMIT Internal Medicine Geriatric Medicine; ATTEND Internal Medicine
PROC: 0BB38ZX Excision of Right Main Bronchus, Via Natural or Artificial Opening Endoscopic, Diagnostic (ICD-10-PCS; principal; 2020-12-12)
PROC: 0B9D8ZX Drainage of Right Middle Lung Lobe, Via Natural or Artificial Opening Endoscopic, Diagnostic (ICD-10-PCS; 2020-12-12)
PROC: 0B9J8ZX Drainage of Left Lower Lung Lobe, Via Natural or Artificial Opening Endoscopic, Diagnostic (ICD-10-PCS; 2020-12-12)
PROC: 0B9D8ZX Drainage of Right Middle Lung Lobe, Via Natural or Artificial Opening Endoscopic, Diagnostic (ICD-10-PCS; 2020-12-12)
PROC: 0B9F8ZX Drainage of Right Lower Lung Lobe, Via Natural or Artificial Opening Endoscopic, Diagnostic (ICD-10-PCS; 2020-12-12)
PROC: 4A033R1 Measurement of Arterial Saturation, Peripheral, Percutaneous Approach (ICD-10-PCS; 2020-12-12)
DX: J18.9 Pneumonia, unspecified organism (principal); J96.01 Acute respiratory failure with hypoxia; Z21 Asymptomatic human immunodeficiency virus [HIV] infection status; Z20.822 Contact with and (suspected) exposure to COVID-19; D49.89 Neoplasm of unspecified behavior of other specified sites; D72.819 Decreased white blood cell count, unspecified; D64.9 Anemia, unspecified; A53.0 Latent syphilis, unspecified as early or late; Z86.16 Personal history of COVID-19; Z79.899 Other long term (current) drug therapy; Z79.891 Long term (current) use of opiate analgesic; Z79.01 Long term (current) use of anticoagulants; Z79.82 Long term (current) use of aspirin
CPT/HCPCS: 36415; 71045; 71046; 71250; 71275; 74177; 80048; 80053; 82024; 82728; 82947; 83615; 83880; 84145; 84484; 85025; 85027; 85379; 85610; 85730; 86140; 86403; 86592; 86593; 87040; 87102; 87103; 87205; 87536; 88104; 88112; 88305; 88312; 93005; 93306; 93970; 94640; 94644; 96374; 96376; G0378; J0171; J0456; J0561; J0696; J1100; J1650; J1940; J2405; J2704; J3010; J3490; J7030; Q9967; U0003

== ENCOUNTER 2021-01-17 14:57 | Emergency (ER) | payer OTHER ==
[2021-01-17 15:49] VITALS: BP 103/62
--- NOTE | 2021-01-17 16:15 | Event Note ---
ED Screening Note ED Screening Note: Patient is a 35-year-old male presents emergency with complaints of right hand pain and swelling that began yesterday He denies any fall or injury He denies any abrasions or being bit by anything He denies ever having this in the past Past medical history of HIV on antivirals On exam there is edema present of the hand, mild increased warmth, very light erythema Could be consistent with an acute gout flare, given patient's past medical history and this is his first encounter with unilateral joint swelling and pain, will order lab work and x-ray This initial assessment/diagnostic orders/clinical plan/treatment(s) is/are subject to change based on patients health status, clinical progression and re- assessment by fellow clinical providers in the ED. Further treatment and workup at subsequent clinical providers discretion. Patient/guardian urged not to elope from the ED as their condition may be serious if not clinically assessed and managed. Initial orders include: Labs, x-ray
[2021-01-17 16:29] LABS: Basophils % (Auto) 0.2 % (0.0-1.8); Eosinophils # (Auto) 0.2 K/mm3 (0.0-0.4); Eosinophils % (Auto) 2.2 % (0.0-4.3); Hematocrit 31.6 % (35.5-45.6); Hemoglobin 10.4 gm/dl (11.8-15.2); Lymphocytes # (Auto) 1.2 K/mm3 (1.2-5.4); Lymphocytes % (Auto) 15.5 % (13.4-35.0); Mean Corpuscular HGB Conc 33 % (32-34); Mean Corpuscular Volume 80 fl (84-94); Monocytes # (Auto) 0.7 K/mm3 (0.0-0.8); Monocytes % (Auto) 9.6 % (0.0-7.3); Platelet Count 452 K/mm3 (140-440); Red Blood Count 3.97 M/mm3 (3.65-5.03)
--- NOTE | 2021-01-17 16:44 | XRay Report ---
RIGHT HAND 3 VIEWS INDICATION / CLINICAL INFORMATION: right hand swelling and pain. COMPARISON: None available. FINDINGS: Ununited ossification center of the ulnar styloid. No fracture or other acute abnormality. No appreci able degenerative change. Signer Name: Arash Eden MD Signed: 01/17/2021 4:40 PM Workstation Name: [id number]
[2021-01-17 16:53] LABS: Alanine Aminotransferase 5 units/L (7-56); Albumin 3.5 g/dL (3.9-5); BUN/Creatinine Ratio 10; Blood Urea Nitrogen 9 mg/dL (9-20); Calcium 8.4 mg/dL (8.4-10.2); Hemolysis Index 4; Uric Acid 4.3 mg/dL (3.5-7.6)
[2021-01-17 16:58] LABS: Erythrocyte Sedimentation Rate 68 mm/Hr (0-20)
--- NOTE | 2021-01-17 18:06 | Emergency Department Report ---
ED General Adult HPI - General Chief complaint: Extremity Injury, Upper Stated complaint: RT HAND SWELLING Time Seen by Provider: 01/17/21 16:10 Source: patient Mode of arrival: Ambulatory Limitations: No Limitations - History of Present Illness Initial comments: 35-year-old [id number]-phqstade male patient with history of HIV presents to emergency department complaints of nontraumatic right hand swelling starting yesterday. Patient states that he works with his hands daily and suspects his symptoms may be attributable to overuse. No medications prior to arrival. No history of joint problems. No current steroid or antibiotic use. Patient canno t recall his last CD4 count but states he has been compliant with his antiretroviral therapy regimen. He is currently under the care of an infectious disease specialist for his HIV. Denies fever, chills, elbow pain, wrist pain, paresthesias, numbness, skin color changes. Denies all other complaints at this time. Severity scale (0 -10): 5 - Related Data Previous Rx's Medication Instructions Recorded Last Taken Type Ipratropium/Albuterol Sulfate 1 ampul IH Q6HR #120 ampul.neb 02/24/20 Unknown Rx [DUONEB *Not for PRN Use*] diphenhydrAMINE [Benadryl CAP] 50 mg PO Q8HR PRN #14 capsule 02/26/20 Unknown Rx Promethazine HCl [Promethazine TAB] 12.5 mg PO [id number] PRN #12 tab 05/09/20 Unknown Rx Atovaquone [Mepron] 750 mg PO BID 25 Days ml 08/19/20 Unknown Rx Dolutegravir [Tivicay] 50 mg PO QDAY #30 tablet 08/19/20 Unknown Rx Emtricitabine [Emtriva] 200 mg PO QDAY #30 capsule 08/19/20 Unknown Rx Famotidine [Pepcid] 20 mg PO BID #60 tablet 08/19/20 Unknown Rx Tenofovir [Viread] 300 mg PO QDAY #30 tablet 08/19/20 Unknown Rx Albuterol Sulfate [Proventil Hfa] 6.7 gm IH QID #1 hfa.aer.ad 11/26/20 Unknown Rx Benzonatate [Tessalon Perles] 100 mg PO Q8HR #20 capsule 12/18/20 Unknown Rx Dolutegravir [Tivicay] 50 mg PO DAILY #30 tablet 12/18/20 Unknown Rx Sulfamethoxazole/Trimethoprim 1 each PO DAILY #30 tablet 12/18/20 Unknown Rx [Bactrim DS TAB] Indomethacin 50 mg PO BID 5 Days capsule 01/17/21 Unknown Rx cephALEXin [Keflex] 500 mg PO TID 5 Days cap 01/17/21 Unknown Rx Allergies Allergy/AdvReac Type Severity Reaction Status Date / Time No Known Allergies Allergy Verified 01/17/21 15:42 ED Review of Systems ROS: Stated complaint: RT HAND SWELLING Other details as noted in HPI Other: GENERAL: Negative for fever, chills, weight change, anorexia, fatigue. ENT: Negative for ear pain, difficulty hearing, sore throat, nasal congestion, epistaxis. CARDIOVASCULAR: Negative for chest pain, palpitations, lower extremity swelling. PULMONARY: Negative for cough, dyspnea, wheezing, orthopnea, cyanosis. GASTROINTESTINAL: Negative for abdominal pain, nausea, vomiting, diarrhea, constipation. MUSCULOSKELETAL: Positive for joint swelling. NEUROLOGICAL: Negative for headache, seizure, syncope, paresthesias, weakness. INTEGUMENTARY: Negative for erythema, rash, diaphoresis, laceration, ecchymosis. HEMATOLOGICAL: Negative for hemoptysis, hematemesis, hematochezia, hematuria. PSYCHIATRIC: Negative for hallucinations, suicidal ideation, homicidal ideation, anxiety, depression. ED Past Medical Hx - Past Medical History Hx Hypertension: No Hx Heart Attack/AMI: No Hx Congestive Heart Failure: No Hx Diabetes: No Hx Deep Vein Thrombosis: No Hx Pulmonary Embolism: No Hx Liver Disease: No Hx Renal Disease: No Hx Seizures: No Hx Psychiatric Treatment: No Hx Asthma: No Hx COPD: No Hx Tuberculosis: No Hx Dementia: No Hx HIV: Yes (ON ANTI-VIRAL'S) Additional medical history: PNA in December 2019, PNA in February 2020, Covid-26 November 2020 - Surgical History Hx Coronary Stent: No Hx Pacemaker: No Hx Internal Defibrillator: No - Social History Smoking Status: Never Smoker Substance Use Type: None - Medications Home Medications: Home Medications Medication Instructions Recorded Confirmed Last Taken Type Ipratropium/Albuterol Sulfate 1 ampul IH Q6HR #120 ampul.neb 02/24/20 12/15/20 Unknown Rx [DUONEB *Not for PRN Use*] diphenhydrAMINE [Benadryl CAP] 50 mg PO Q8HR PRN #14 capsule 02/26/20 12/15/20 Unknown Rx Promethazine HCl [Promethazine TAB] 12.5 mg PO [id number] PRN #12 tab 05/09/20 12/15/20 Unknown Rx Atovaquone [Mepron] 750 mg PO BID 25 Days ml 08/19/20 12/15/20 Unknown Rx Dolutegravir [Tivicay] 50 mg PO QDAY #30 tablet 08/19/20 12/15/20 Unknown Rx Emtricitabine [Emtriva] 200 mg PO QDAY #30 capsule 08/19/20 12/15/20 Unknown Rx Famotidine [Pepcid] 20 mg PO BID #60 tablet 08/19/20 12/15/20 Unknown Rx Tenofovir [Viread] 300 mg PO QDAY #30 tablet 08/19/20 12/15/20 Unknown Rx Albuterol Sulfate [Proventil Hfa] 6.7 gm IH QID #1 hfa.aer.ad 11/26/20 12/15/20 Unknown Rx Benzonatate [Tessalon Perles] 100 mg PO Q8HR #20 capsule 12/18/20 Unknown Rx Dolutegravir [Tivicay] 50 mg PO DAILY #30 tablet 12/18/20 Unknown Rx Sulfamethoxazole/Trimethoprim 1 each PO DAILY #30 tablet 12/18/20 Unknown Rx [Bactrim DS TAB] Indomethacin 50 mg PO BID 5 Days capsule 01/17/21 Unknown Rx cephALEXin [Keflex] 500 mg PO TID 5 Days cap 01/17/21 Unknown Rx ED Physical Exam - General Limitations: No Limitations - Other Other exam information: General: Awake, appropriately interactive, no acute distress. Neck: Supple. Full range of motion intact. Cardiovascular: Normal peripheral perfusion. Pulmonary: No respiratory distress. Patient is speaking normally without use of accessory muscles. Skin: No apparent rashes or lesions. Neurological: No facial asymmetry. Speech is clear. Follows commands. Patient is alert and oriented. Musculoskeletal: Tenderness to palpation throughout the dorsal aspect of the right hand with mild soft tissue swelling throughout. Strong radial pulse. Br isk capillary refill. No localized tenderness along the distribution of the flexor tendon sheaths. Pain is appropriately proportional to exam findings. No overlying warmth or erythema. No crepitus. Flexion and extension mechanisms of the fingers are painful but intact. Patient is holding the hand in a neutral position at rest. There is no fusiform enlargement of the digits. No obvious deformity or dislocation. Distal neurovascular and motor/sensory function intact. Psych: Cooperative. Appropriate mood and affect. ED Course Vital Signs 01/17/21 15:48 Temperature 98.1 F Pulse Rate 96 H Respiratory 20 Rate Blood Pressure 103/62 [Right] O2 Sat by Pulse 97 Oximetry ED Medical Decision Making - Lab Data Result diagrams: 01/17/21 16:20 01/17/21 16:20 - Radiology Data [facility] [address] [place] [address] XRay Report Signed Patient: PENNY FERNANDO III MR #: [id number] : 1985 Acct:[id number] Age/Sex: 35 / M ADM Date: 01/17/21 Loc: ED Attending Dr: Ordering Physician: DEEPTHI DYER Date of Service: 01/17/21 Procedure(s): XR hand 3+V RT Accession Number(s): [id number] cc: DEEPTHI DYER Fluoro Time In Minutes: RIGHT HAND 3 VIEWS INDICATION / CLINICAL INFORMATION: right hand swelling and pain. COMPARISON: None available. FINDINGS: Ununited ossification center of the ulnar styloid. No fracture or other acute abnormality. No appreciable degenerative change. Signer Name: Arash Eden MD Signed: 01/17/2021 4:40 PM Workstation Name: [id number] Transcribed By: TM Dictated By: Arash Eden MD Electronically Authenticated By: Arash Eden MD Signed Date/Time: 01/17/21 1640 DD/ 1639 TD/TT: - Medical Decision Making Differential diagnosis including but not limited to: septic arthritis, osteoarthritis, rheumatoid arthritis, infectious tenosynovitis, gout, pseudogout, necrotizing soft tissue infection, cellulitis On reevaluation, patient remains stable. Repeat neurovascular exam remains intact. He is afebrile, hemodynamically stable, pain is appropriately proportional to exam findings. No Kan[place] signs to suggest presence of infectious tenosynovitis. Inflammatory markers obtained by reviews provider during medical screening examination elevated. No leukocytosis. No radiographic evidence of necrotizing soft tissue infection. Flexion and extension mechanisms of the hand intact without evidence to suggest septic joint. History and exam findings are suggestive of inflammatory process (such as gout) however due to patient's underlying immunosuppression, he will be covered with antibiotics for possible concomitant soft tissue infection. Patient will be discharged home with Indomethacin for pain/swelling and Keflex per current IDSA guidelines. Emphasized the importance of following up with primary care provider and continued adherence to antiretroviral medication regimen. Patient expressed understanding and is agreeable to plan of care. Strict return precautions provided. Repeat exam is unremarkable and benign. History, exam, diagnostic testing, and current condition do not suggest worrisome pathology to warrant further testing, continued ED treatment, admission, or surgical evaluation at this point. Given the low probability of a significant medical illness, it would be more likely to result in harm than benefit to perform further testing at this stage. Discussed findings, presumptive diagnosis, need for follow-up and specific signs/symptoms that should prompt immediate return to the emergency department. Instructions were explained in detail to the patient in addition to giving written discharge information. Patient expressed understanding and was given the opportunity to ask questions, all of which were satisfactorily answered prior to discharge home. Critical care attestation.: If time is entered above; I have spent that time in minutes in the direct care of this critically ill patient, excluding procedure time. ED Disposition Clinical Impression: Swelling of right hand, History of HIV or AIDS Disposition: DC- TO HOME OR SELFCARE Is pt being admited?: No Does the pt Need Aspirin: No Condition: Stable Instructions: Hand Pain Additional Instructions: Take Tylenol every 4 hours as needed for pain. Take Indomethacin with food as directed. Take Keflex with food as directed. Increase your dietary intake of probiotic rich foods while taking this medication. Keep right hand elevated as often as possible to reduce swelling. Apply ice to affected area as needed to reduce swelling. Follow-up with primary care provider this week. Call tomorrow to schedule an appointment. See referral information below. Follow-up with your infectious disease specialist as previously scheduled. Return to the emergency department immediately for new or worsening symptoms. Specifically, return to the emergency department immediately for fever, increased pain, worsening swelling, skin color changes, or any other concerns. Prescriptions: Indomethacin 50 mg PO BID 5 Days capsule cephALEXin [Keflex] 500 mg PO TID 5 Days cap Referrals: SHELLEY MEANS MD [Staff Physician] - 3-5 Days [facility] [Outside] - 3-5 Days [facility] [Outside] - 3-5 Days [facility] [Outside] - 3-5 Days [facility] [Provider Group] - 3-5 Days Forms: Work/School Release Form(ED) Time of Disposition: 18:12
== END 2021-01-17 18:27 | disposition home or self-care (01) ==
LOC: ED 14:57
DX: M79.89 Other specified soft tissue disorders (principal); Z21 Asymptomatic human immunodeficiency virus [HIV] infection status; Z79.899 Other long term (current) drug therapy
CPT/HCPCS: 36415; 80053; 82550; 84550; 85025; 85652; 86140

== ENCOUNTER 2021-02-04 20:28 | Inpatient (IN) | payer OTHER ==
[2021-02-04 22:03] LABS: Basophils % (Auto) 0.4 % (0.0-1.8); Eosinophils # (Auto) 0.3 K/mm3 (0.0-0.4); Eosinophils % (Auto) 8.7 % (0.0-4.3); Hematocrit 32.2 % (35.5-45.6); Lymphocytes # (Auto) 0.7 K/mm3 (1.2-5.4); Mean Corpuscular HGB Conc 31 % (32-34); Mean Corpuscular Volume 80 fl (84-94); Monocytes # (Auto) 0.5 K/mm3 (0.0-0.8); Monocytes % (Auto) 12.6 % (0.0-7.3); Platelet Count 519 K/mm3 (140-440)
[2021-02-04 22:13] LABS: BUN/Creatinine Ratio 12; Blood Urea Nitrogen 11 mg/dL (9-20); Calcium 8.6 mg/dL (8.4-10.2); Hemolysis Index 13
--- NOTE | 2021-02-04 22:19 | Emergency Department Report ---
- General Chief Complaint: Upper Respiratory Infection Stated Complaint: COUGH Time Seen by Provider: 02/04/21 21:31 Source: patient Mode of arrival: Ambulatory Limitations: No Limitations - History of Present Illness Initial Comments: 35-year-old -[place] male with immune compromise presents to the emergency room complaining of persistent cough. Patient states that he did test positive for Covid a couple months ago. Patient denies any shortness of breath no fever no chills no nausea no vomiting no diarrhea no chest pain no dyspnea. Patient reports he been taking Mucinex and Robitussin without much relief. MD Complaint: cough Onset/Timin -: month(s) (4 months tested positive for COVID) Severity: moderate Consistency: intermittent Improves With: nothing Worsens With: other (lying down) Associated Symptoms: cough, shortness of breath (with cough), vomiting (times 1 today). denies: fever, chills, headache, rhinorrhea, nasal congestion, sore throat, right sweats, weight loss, ear pain Treatments Prior to Arrival: other (Has been taking Robitussin and Mucinex) - Related Data Previous Rx's Medication Instructions Recorded Last Taken Type Ipratropium/Albuterol Sulfate 1 ampul IH Q6HR #120 ampul.neb 02/24/20 Unknown Rx [DUONEB *Not for PRN Use*] diphenhydrAMINE [Benadryl CAP] 50 mg PO Q8HR PRN #14 capsule 02/26/20 Unknown Rx Promethazine HCl [Promethazine TAB] 12.5 mg PO [id number] PRN #12 tab 05/09/20 Unknown Rx Atovaquone [Mepron] 750 mg PO BID 25 Days ml 08/19/20 Unknown Rx Dolutegravir [Tivicay] 50 mg PO QDAY #30 tablet 08/19/20 Unknown Rx Emtricitabine [Emtriva] 200 mg PO QDAY #30 capsule 08/19/20 Unknown Rx Famotidine [Pepcid] 20 mg PO BID #60 tablet 08/19/20 Unknown Rx Tenofovir [Viread] 300 mg PO QDAY #30 tablet 08/19/20 Unknown Rx Albuterol Sulfate [Proventil Hfa] 6.7 gm IH QID #1 hfa.aer.ad 11/26/20 Unknown Rx Benzonatate [Tessalon Perles] 100 mg PO Q8HR #20 capsule 12/18/20 Unknown Rx Dolutegravir [Tivicay] 50 mg PO DAILY #30 tablet 12/18/20 Unknown Rx Sulfamethoxazole/Trimethoprim 1 each PO DAILY #30 tablet 12/18/20 Unknown Rx [Bactrim DS TAB] Indomethacin 50 mg PO BID 5 Days capsule 01/17/21 Unknown Rx cephALEXin [Keflex] 500 mg PO TID 5 Days cap 01/17/21 Unknown Rx Allergies Allergy/AdvReac Type Severity Reaction Status Date / Time No Known Allergies Allergy Verified 01/17/21 15:42 ED Review of Systems ROS: Stated complaint: COUGH Other details as noted in HPI Comment: All other systems reviewed and negative ED Past Medical Hx - Past Medical History Previous Medical History?: No Hx Hypertension: No Hx Heart Attack/AMI: No Hx Congestive Heart Failure: No Hx Diabetes: No Hx Deep Vein Thrombosis: No Hx Pulmonary Embolism: No Hx Liver Disease: No Hx Renal Disease: No Hx Seizures: No Hx Psychiatric Treatment: No Hx Asthma: No Hx COPD: No Hx Tuberculosis: No Hx Dementia: No Hx HIV: Yes (ON ANTI-VIRAL'S) Additional medical history: PNA in December 2019, PNA in February 2020, Covid-26 November 2020 - Surgical History Past Surgical History?: No Hx Coronary Stent: No Hx Pacemaker: No Hx Internal Defibrillator: No - Social History Smoking Status: Never Smoker Substance Use Type: None - Medications Home Medications: Home Medications Medication Instructions Recorded Confirmed Last Taken Type Ipratropium/Albuterol Sulfate 1 ampul IH Q6HR #120 ampul.neb 02/24/20 12/15/20 Unknown Rx [DUONEB *Not for PRN Use*] diphenhydrAMINE [Benadryl CAP] 50 mg PO Q8HR PRN #14 capsule 02/26/20 12/15/20 Unknown Rx Promethazine HCl [Promethazine TAB] 12.5 mg PO [id number] PRN #12 tab 05/09/20 12/15/20 Unknown Rx Atovaquone [Mepron] 750 mg PO BID 25 Days ml 08/19/20 12/15/20 Unknown Rx Dolutegravir [Tivicay] 50 mg PO QDAY #30 tablet 08/19/20 12/15/20 Unknown Rx Emtricitabine [Emtriva] 200 mg PO QDAY #30 capsule 08/19/20 12/15/20 Unknown Rx Famotidine [Pepcid] 20 mg PO BID #60 tablet 08/19/20 12/15/20 Unknown Rx Tenofovir [Viread] 300 mg PO QDAY #30 tablet 08/19/20 12/15/20 Unknown Rx Albuterol Sulfate [Proventil Hfa] 6.7 gm IH QID #1 hfa.aer.ad 11/26/20 12/15/20 Unknown Rx Benzonatate [Tessalon Perles] 100 mg PO Q8HR #20 capsule 12/18/20 Unknown Rx Dolutegravir [Tivicay] 50 mg PO DAILY #30 tablet 12/18/20 Unknown Rx Sulfamethoxazole/Trimethoprim 1 each PO DAILY #30 tablet 12/18/20 Unknown Rx [Bactrim DS TAB] Indomethacin 50 mg PO BID 5 Days capsule 01/17/21 Unknown Rx cephALEXin [Keflex] 500 mg PO TID 5 Days cap 01/17/21 Unknown Rx ED Physical Exam - General Limitations: No Limitations General appearance: alert, in no apparent distress - Head Head exam: Present: atraumatic, normocephalic - Eye Eye exam: Present: normal appearance, PERRL - ENT ENT exam: Present: mucous membranes moist, normal external ear exam - Respiratory Respiratory exam: Present: other (Crackles throughout). Absent: respiratory distress - Cardiovascular Cardiovascular Exam: Present: regular rate, normal rhythm - Extremities Exam Extremities exam: Present: normal inspection, full ROM - Back Exam Back exam: Present: normal inspection, full ROM - Neurological Exam Neurological exam: Present: alert, oriented X3, normal gait - Psychiatric Psychiatric exam: Present: normal affect, normal mood - Skin Skin exam: Present: warm, dry, intact, normal color. Absent: rash ED Course Vital Signs 02/04/21 21:26 Temperature 98.2 F Pulse Rate 86 Respiratory 18 Rate Blood Pressure 106/69 O2 Sat by Pulse 93 Oximetry ED Medical Decision Making - Lab Data Result diagrams: 02/04/21 21:42 02/04/21 21:42 - Radiology Data Radiology results: report reviewed - Medical Decision Making [facility] 1 Approval Date 2021-02-04 22:39:57 Other Patient ID My Comment(s) Study Comments [facility] [address] [place] [address] XRay Report Signed Patient: PENNY FERNANDO III MR #: [id number] : 1985 Acct:[id number] Age/Sex: 35 / M ADM Date: 02/04/21 Loc: ED Attending Dr: Ordering Physician: RAMONA POLK MD Date of Service: 02/04/21 Procedure(s): XR chest routine 2V Accession Number(s): [id number] cc: RAMONA POLK MD Fluoro Time In Minutes: Chest 2 views INDICATION: Dyspnea IMPRESSION: Severe bilateral airspace pneumonia has worsened when compared to 12/12/2020. No significant pleural effusion identified Signer Name: Lobo Mari MD Signed: 02/04/2021 10:33 PM Workstation Name: [id number] Transcribed By: BC Dictated By: Lobo Mari MD Electronically Authenticated By: Lobo Mari MD Signed Date/Time: 02/04/212232 DD/ 31 TD/TT: Critical care attestation.: If time is entered above; I have spent that time in minutes in the direct care of this critically ill patient, excluding procedure time. ED Disposition Condition: Stable
--- NOTE | 2021-02-04 22:38 | XRay Report ---
Chest 2 views INDICATION: Dyspnea IMPRESSION: Severe bilateral airspace pneumonia has worsened when compared to 12/12/2020. No significan t pleural effusion identified Signer Name: Lobo Mari MD Signed: 02/04/2021 10:33 PM Workstation Name: [id number]
[2021-02-04 22:49] LABS: Bilirubin,Direct < 0.2 mg/dL (0-0.2)
[2021-02-04 22:50] LABS: Alanine Aminotransferase < 5 units/L (7-56)
[2021-02-05] MEDS ORDERED: methylPREDNISolone Sod Succinate 125 MG/2 ML INJ IV ONE (01:37)
--- NOTE | 2021-02-05 01:43 | Emergency Department Report ---
ED General Adult HPI - General Chief complaint: Upper Respiratory Infection Stated complaint: COUGH Time Seen by Provider: 02/04/21 21:31 Source: patient Mode of arrival: Ambulatory Limitations: No Limitations - History of Present Illness Initial comments: Patient is 35 years old male with history of HIV, noncompliant with his medication. Patient presented to the ER complaining of difficulty breathing and cough for the last few days. Patient was admitted here 3 months ago for bilateral pneumonia. Patient stated that he was doing well after he was discharged from the hospital. Patient denied any fever or chills. No nausea or vomiting. Patient tested positive for COVID-19 in November and he tested negative after that. - Related Data Previous Rx's Medication Instructions Recorded Last Taken Type Ipratropium/Albuterol Sulfate 1 ampul IH Q6HR #120 ampul.neb 02/24/20 Unknown Rx [DUONEB *Not for PRN Use*] diphenhydrAMINE [Benadryl CAP] 50 mg PO Q8HR PRN #14 capsule 02/26/20 Unknown Rx Promethazine HCl [Promethazine TAB] 12.5 mg PO [id number] PRN #12 tab 05/09/20 Unknown Rx Atovaquone [Mepron] 750 mg PO BID 25 Days ml 08/19/20 Unknown Rx Dolutegravir [Tivicay] 50 mg PO QDAY #30 tablet 08/19/20 Unknown Rx Emtricitabine [Emtriva] 200 mg PO QDAY #30 capsule 08/19/20 Unknown Rx Famotidine [Pepcid] 20 mg PO BID #60 tablet 08/19/20 Unknown Rx Tenofovir [Viread] 300 mg PO QDAY #30 tablet 08/19/20 Unknown Rx Albuterol Sulfate [Proventil Hfa] 6.7 gm IH QID #1 hfa.aer.ad 11/26/20 Unknown Rx Benzonatate [Tessalon Perles] 100 mg PO Q8HR #20 capsule 12/18/20 Unknown Rx Dolutegravir [Tivicay] 50 mg PO DAILY #30 tablet 12/18/20 Unknown Rx Sulfamethoxazole/Trimethoprim 1 each PO DAILY #30 tablet 12/18/20 Unknown Rx [Bactrim DS TAB] Indomethacin 50 mg PO BID 5 Days capsule 01/17/21 Unknown Rx cephALEXin [Keflex] 500 mg PO TID 5 Days cap 01/17/21 Unknown Rx Allergies Allergy/AdvReac Type Severity Reaction Status Date / Time No Known Allergies Allergy Verified 01/17/21 15:42 ED Review of Systems ROS: Stated complaint: COUGH Other details as noted in HPI Comment: All other systems reviewed and negative Constitutional: denies: chills, fever Respiratory: cough, shortness of breath, SOB with exertion, SOB at rest. denies: orthopnea, wheezing Cardiovascular: denies: chest pain, palpitations Gastrointestinal: denies: abdominal pain, nausea, vomiting ED Past Medical Hx - Past Medical History Previous Medical History?: No Hx Hypertension: No Hx Heart Attack/AMI: No Hx Congestive Heart Failure: No Hx Diabetes: No Hx Deep Vein Thrombosis: No Hx Pulmonary Embolism: No Hx Liver Disease: No Hx Renal Disease: No Hx Seizures: No Hx Psychiatric Treatment: No Hx Asthma: No Hx COPD: No Hx Tuberculosis: No Hx Dementia: No Hx HIV: Yes (ON ANTI-VIRAL'S) Additional medical history: PNA in December 2019, PNA in February 2020, Covid-26 November 2020 - Surgical History Past Surgical History?: No Hx Coronary Stent: No Hx Pacemaker: No Hx Internal Defibrillator: No - Social History Smoking Status: Never Smoker Substance Use Type: None - Medications Home Medications: Home Medications Medication Instructions Recorded Confirmed Last Taken Type Ipratropium/Albuterol Sulfate 1 ampul IH Q6HR #120 ampul.neb 02/24/20 12/15/20 Unknown Rx [DUONEB *Not for PRN Use*] diphenhydrAMINE [Benadryl CAP] 50 mg PO Q8HR PRN #14 capsule 02/26/20 12/15/20 Unknown Rx Promethazine HCl [Promethazine TAB] 12.5 mg PO [id number] PRN #12 tab 05/09/20 12/15/20 Unknown Rx Atovaquone [Mepron] 750 mg PO BID 25 Days ml 08/19/20 12/15/20 Unknown Rx Dolutegravir [Tivicay] 50 mg PO QDAY #30 tablet 08/19/20 12/15/20 Unknown Rx Emtricitabine [Emtriva] 200 mg PO QDAY #30 capsule 08/19/20 12/15/20 Unknown Rx Famotidine [Pepcid] 20 mg PO BID #60 tablet 08/19/20 12/15/20 Unknown Rx Tenofovir [Viread] 300 mg PO QDAY #30 tablet 08/19/20 12/15/20 Unknown Rx Albuterol Sulfate [Proventil Hfa] 6.7 gm IH QID #1 hfa.aer.ad 11/26/20 12/15/20 Unknown Rx Benzonatate [Tessalon Perles] 100 mg PO Q8HR #20 capsule 12/18/20 Unknown Rx Dolutegravir [Tivicay] 50 mg PO DAILY #30 tablet 12/18/20 Unknown Rx Sulfamethoxazole/Trimethoprim 1 each PO DAILY #30 tablet 12/18/20 Unknown Rx [Bactrim DS TAB] Indomethacin 50 mg PO BID 5 Days capsule 01/17/21 Unknown Rx cephALEXin [Keflex] 500 mg PO TID 5 Days cap 01/17/21 Unknown Rx ED Physical Exam - General Limitations: No Limitations General appearance: alert, in distress - Head Head exam: Present: atraumatic, normocephalic, normal inspection - Eye Eye exam: Present: normal appearance - ENT ENT exam: Present: normal exam, normal orophraynx, mucous membranes moist - Neck Neck exam: Present: normal inspection, full ROM. Absent: tenderness, meningismus - Respiratory Respiratory exam: Present: rales. Absent: wheezes - Cardiovascular Cardiovascular Exam: Present: regular rate, normal rhythm, normal heart sounds - GI/Abdominal GI/Abdominal exam: Present: soft, normal bowel sounds. Absent: distended, tenderness, guarding, rebound, rigid, organomegaly, mass, bruit, pulsatile mass, hernia - Extremities Exam Extremities exam: Present: normal inspection, full ROM, normal capillary refill. Absent: tenderness, pedal edema, joint swelling, calf tenderness - Back Exam Back exam: Present: normal inspection, full ROM. Absent: CVA tenderness (R), CVA tenderness (L) - Neurological Exam Neurological exam: Present: alert, oriented X3, CN II-XII intact - Psychiatric Psychiatric exam: Present: normal mood - Skin Skin exam: Present: warm, intact, normal color ED Course Vital Signs 02/04/21 21:26 Temperature 98.2 F Pulse Rate 86 Respiratory 18 Rate Blood Pressure 106/69 O2 Sat by Pulse 93 Oximetry ED Medical Decision Making - Lab Data Result diagrams: 02/04/21 21:42 06/28/21 21:42 - Radiology Data Radiology results: report reviewed - Medical Decision Making Patient is 35 years old male with history of HIV, noncompliant with his medication. Patient presented to the ER complaining of difficulty breathing and cough for the last few days. Patient was admitted here 3 months ago for bilateral pneumonia. Patient stated that he was doing well after he was discharged from the hospital. Patient denied any fever or chills. No nausea or vomiting. Patient tested positive for COVID-19 in November and he tested negative after that. Chest x-ray showed worsening bilateral lower lobe pneumonia. Patient received Levaquin and Solu-Medrol. COVID-19 test has acute ordered. I discussed the patient with Dr. Arnett, he agreed to admit the patient to medical service for further management. Critical care attestation.: If time is entered above; I have spent that time in minutes in the direct care of this critically ill patient, excluding procedure time. ED Disposition Clinical Impression: HIV (human immunodeficiency virus infection), Bilateral pneumonia, Suspected COVID-19 virus infection Disposition: -09 OP ADMIT IP TO THIS HOSP Is pt being admited?: Yes Condition: Stable Instructions: Bacterial Pneumonia (ED)
[2021-02-05] MEDS ORDERED: ACETAMINOPHEN 325 MG TAB PO PRN (02:52)
[2021-02-05] MEDS ORDERED: ONDANSETRON 4 MG/2 ML INJ IV PRN (02:52)
[2021-02-05] MEDS ORDERED: ALBUTEROL 2.5 MG/3 ML NEBU IH PRN (02:52)
[2021-02-05] MEDS ORDERED: diphenhydrAMINE 25 MG CAP PO PRN ×2 (02:56→04:00)
[2021-02-05] MEDS ORDERED: hydrALAZINE 20 MG/1 ML INJ IV PRN (02:58)
--- NOTE | 2021-02-05 03:03 | History and Physical Report ---
History of Present Illness Date of examination: 02/05/21 Date of admission: 02/05/21 Chief complaint: Coughing shortness of breath History of present illness: 35 years old male with history of HIV, noncompliant with his medication was brought to the emergency room because of difficulty breathing and cough for the last few days. Patient was admitted here 3 months ago for bilateral pneumonia. Patient stated that he was doing well after he was discharged from the hospital. Patient denied any fever or chills. No nausea or vomiting. Patient tested positive for COVID-19 in November and he tested negative after that. In the emergency room patient chest x-ray showed severe bilateral airspace pneumonia has worsened when compared to 12/12/2020. No significant pleural effusion identified Past History Past Medical History: HIV/AIDS, other (Pneumonia) Medications and Allergies Allergies Allergy/AdvReac Type Severity Reaction Status Date / Time No Known Allergies Allergy Verified 01/17/21 15:42 Home Medications Medication Instructions Recorded Confirmed Last Taken Type Ipratropium/Albuterol Sulfate 1 ampul IH Q6HR #120 ampul.neb 02/24/20 12/15/20 Unknown Rx [DUONEB *Not for PRN Use*] diphenhydrAMINE [Benadryl CAP] 50 mg PO Q8HR PRN #14 capsule 02/26/20 12/15/20 Unknown Rx Promethazine HCl [Promethazine TAB] 12.5 mg PO [id number] PRN #12 tab 05/09/20 12/15/20 Unknown Rx Atovaquone [Mepron] 750 mg PO BID 25 Days ml 08/19/20 12/15/20 Unknown Rx Dolutegravir [Tivicay] 50 mg PO QDAY #30 tablet 08/19/20 12/15/20 Unknown Rx Emtricitabine [Emtriva] 200 mg PO QDAY #30 capsule 08/19/20 12/15/20 Unknown Rx Famotidine [Pepcid] 20 mg PO BID #60 tablet 08/19/20 12/15/20 Unknown Rx Tenofovir [Viread] 300 mg PO QDAY #30 tablet 08/19/20 12/15/20 Unknown Rx Albuterol Sulfate [Proventil Hfa] 6.7 gm IH QID #1 hfa.aer.ad 11/26/20 12/15/20 Unknown Rx Benzonatate [Tessalon Perles] 100 mg PO Q8HR #20 capsule 12/18/20 Unknown Rx Dolutegravir [Tivicay] 50 mg PO DAILY #30 tablet 12/18/20 Unknown Rx Sulfamethoxazole/Trimethoprim 1 each PO DAILY #30 tablet 12/18/20 Unknown Rx [Bactrim DS TAB] Indomethacin 50 mg PO BID 5 Days capsule 01/17/21 Unknown Rx cephALEXin [Keflex] 500 mg PO TID 5 Days cap 01/17/21 Unknown Rx Review of Systems Cardiovascular: shortness of breath, dyspnea on exertion Respiratory: cough, cough with sputum, shortness of breath, dyspnea on exertion Exam - Constitutional Vitals: Temp Pulse Resp BP Pulse Ox 98.2 F 78 23 97/56 94 02/04/21 21:26 02/05/21 02:30 02/05/21 02:30 02/05/21 02:30 02/05/21 02:30 General appearance: Present: no acute distress, well-nourished - EENT Eyes: Present: PERRL ENT: hearing intact, clear oral mucosa - Neck Neck: Present: supple, normal ROM - Respiratory Respiratory effort: normal Respiratory: bilateral: diminished - Cardiovascular Heart Sounds: Present: S1 & S2. Absent: rub, click - Extremities Extremities: pulses symmetrical, No edema Peripheral Pulses: within normal limits - Abdominal General gastrointestinal: Present: soft, non-tender, non-distended, normal bowel sounds Male genitourinary: Present: normal - Integumentary Integumentary: Present: clear, warm, dry - Musculoskeletal Musculoskeletal: gait normal, strength equal bilaterally - Psychiatric Psychiatric: appropriate mood/affect, intact judgment & insight - Neurologic Neurologic: CNII-XII intact, moves all extremities Results - Labs CBC & Chem 7: 02/04/21 21:42 02/05/21 01:51 Labs: Laboratory Last Values WBC 4.0 K/mm3 (4.5-11.0) L 02/04/21 21:42 RBC 4.00 M/mm3 (3.65-5.03) 02/04/21 21:42 Hgb 10.0 gm/dl (11.8-15.2) L 02/04/21 21:42 Hct 32.2 % (35.5-45.6) L 02/04/21 21:42 MCV 80 fl (84-94) L 02/04/21 21:42 MCH 25 pg (28-32) L 02/04/21 21:42 MCHC 31 % (32-34) L 02/04/21 21:42 RDW 19.0 % (13.2-15.2) H 02/04/21 21:42 Plt Count 519 K/mm3 (140-440) H 02/04/21 21:42 Lymph % (Auto) 17.0 % (13.4-35.0) 02/04/21 21:42 [place] % (Auto) 12.6 % (0.0-7.3) H 02/04/21 21:42 Eos % (Auto) 8.7 % (0.0-4.3) H 02/04/21 21:42 Baso % (Auto) 0.4 % (0.0-1.8) 02/04/21 21:42 Lymph # (Auto) 0.7 K/mm3 (1.2-5.4) L 02/04/21 21:42 [place] # (Auto) 0.5 K/mm3 (0.0-0.8) 02/04/21 21:42 Eos # (Auto) 0.3 K/mm3 (0.0-0.4) 02/04/21 21:42 Baso # (Auto) 0.0 K/mm3 (0.0-0.1) 02/04/21 21:42 Seg Neutrophils % 61.3 % (40.0-70.0) 02/04/21 21:42 Seg Neutrophils # 2.4 K/mm3 (1.8-7.7) 02/04/21 21:42 D-Dimer 443.53 ng/mlDDU (0-234) H 02/05/21 01:51 Sodium 136 mmol/L (137-145) L 02/04/21 21:42 Potassium 3.7 mmol/L (3.6-5.0) 02/04/21 21:42 Chloride 103.2 mmol/L (98-107) 02/04/21 21:42 Carbon Dioxide 25 mmol/L (22-30) 02/04/21 21:42 Anion Gap 12 mmol/L 02/04/21 21:42 BUN 11 mg/dL (9-20) 02/04/21 21:42 Creatinine 0.9 mg/dL (0.8-1.3) 02/04/21 21:42 Estimated GFR > 60 ml/min 02/04/21 21:42 BUN/Creatinine Ratio 12 % 02/04/21 21:42 Glucose 74 mg/dL (75-100) L 02/04/21 21:42 Calcium 8.6 mg/dL (8.4-10.2) 02/04/21 21:42 Total Bilirubin 0.20 mg/dL (0.1-1.2) 02/04/21 21:42 Direct Bilirubin < 0.2 mg/dL (0-0.2) 02/04/21 21:42 Indirect Bilirubin 0.0 mg/dL 02/04/21 21:42 AST 9 units/L (5-40) 02/04/21 21:42 ALT < 5 units/L (7-56) L 02/04/21 21:42 Alkaline Phosphatase 67 units/L (35-129) 02/04/21 21:42 Total Protein 6.9 g/dL (6.3-8.2) 02/04/21 21:42 Albumin 3.0 g/dL (3.9-5) L 02/04/21 21:42 Albumin/Globulin Ratio 0.8 % 02/04/21 21:42 - Imaging and Cardiology Chest x-ray: report reviewed Assessment and Plan VTE prophylaxis?: Chemical Plan of care discussed with patient/family: Yes - Patient Problems (1) Bilateral pneumonia Current Visit: Yes Status: Acute Plan to address problem: Admit the patient to the medical telemetry. Oxygen via nasal cannula 3 L/min. DuoNeb by nebulizer every 4 hours.. Albuterol via nebulizer every 4 hours as needed. Rocephin 2 g IV daily. Zithromax 500 IV daily. We do the blood cultures sputum culture. We will consult infectious disease for evaluation. (2) Suspected COVID-19 virus infection Current Visit: Yes Status: Acute Plan to address problem: Oxygen via nasal cannula 3 L/min. DuoNeb by nebulizer every 4 hours.. Albuterol via nebulizer every 4 hours as needed. Rocephin 2 g IV daily. Zithromax 500 IV daily. We do the blood cultures sputum culture. We will consult infectious disease for evaluation. Solu-Medrol 125 mg IV x1 dose. Follow Covid markers and Covid PCR result (3) Shortness of breath Current Visit: No Status: Acute Plan to address problem: Oxygen via nasal cannula 3 L/min. DuoNeb by nebulizer every 4 hours.. Albuterol via nebulizer every 4 hours as needed. Rocephin 2 g IV daily. Zithromax 500 IV daily. Solu-Medrol 125 mg IV x1 dose. We do the blood cultures sputum culture. We will consult infectious disease for evaluation. (4) HIV (human immunodeficiency virus infection) Current Visit: Yes Status: Chronic Plan to address problem: Tenofovir 300 mg p.o. daily. Bactrim 1 tablet p.o. daily. Will consult infectious disease for further evaluation and treatment (5) DVT prophylaxis Current Visit: No Status: Acute Plan to address problem: Heparin 5000 units subcu every 8 hours for DVT prophylaxis. Pepcid 20 mg p.o. twice daily for GI prophylaxis. Patient is a full code
[2021-02-05 03:11] LABS: C-Reactive Protein 1.6 mg/dL (0.00-1.30)
[2021-02-05] MEDS: cefTRIAXone/NS 2 GM/100 ML 2 GM/100 ML BAG IV SCH ×2 (03:43→09:39)
[2021-02-05] MEDS: HEPARIN 5,000 UNIT/1 ML VIAL SUB-Q SCH ×3 (05:56→21:36)
[2021-02-05] MEDS: BENZONATATE 100 MG CAP PO SCH ×3 (05:57→21:36)
[2021-02-05] MEDS ORDERED: AZITHROMYCIN/NS 500 MG/250 ML 500 MG/250 ML BAG IV SCH (06:00)
[2021-02-05] MEDS: IPRATROPIUM/ALBUTEROL SULFATE 3 ML AMPUL.NEB IH SCH ×3 (09:27→21:05)
[2021-02-05] MEDS: SULFAMETHOXAZOLE/TRIMETHOPRIM 800/160MG DS TAB PO SCH (09:38)
[2021-02-05] MEDS: FAMOTIDINE 20 MG TAB PO SCH ×2 (09:38→21:35)
[2021-02-05] MEDS ORDERED: ATOVAQUONE 750 MG/5 ML ORAL SUSP PO SCH (10:00)
--- NOTE | 2021-02-05 10:22 | Consultation ---
History of Present Illness Consult date: 02/05/21 Reason for consult: cough, hypoxemia, pneumonia History of present illness: 35 years old male with history of HIV, noncompliant with his medication was brought to the emergency room because of difficulty breathing and cough for the last few days. Patient was admitted here 3 months ago for bilateral pneumonia. Patient stated that he was doing well after he was discharged from the hospital. Patient denied any fever or chills. No nausea or vomiting. Patient tested positive for COVID-19 in November and he tested negative after that. In the emergency room patient chest x-ray showed severe bilateral airspace pneumonia has worsened when compared to 12/12/2020. No significant pleural effusion identified Patient has no history of smoking, alcohol or drug abuse. Works in [employer]. Not . No children. No known drug allergies. Patient complaining cough with productive white slightly red sputum. Denies chest pain. Complains shortness of breath with cough. Patient is on 2 litres O2. O2 saturation 96%. Patient afebrile. No leukocytosis. Blood pressure 106/72. Patient is on Zithromax, Ceftrioxane, Bactrim DS, Albuterol/atrovent aerosol treatments. S/C Heparin and famotidine. Past History Past Medical History: HIV/AIDS, other (Pneumonia) Medications and Allergies Allergies Allergy/AdvReac Type Severity Reaction Status Date / Time No Known Allergies Allergy Verified 01/17/21 15:42 Home Medications Medication Instructions Recorded Confirmed Last Taken Type Ipratropium/Albuterol Sulfate 1 ampul IH Q6HR #120 ampul.neb 02/24/20 12/15/20 Unknown Rx [DUONEB *Not for PRN Use*] diphenhydrAMINE [Benadryl CAP] 50 mg PO Q8HR PRN #14 capsule 02/26/20 12/15/20 Unknown Rx Promethazine HCl [Promethazine TAB] 12.5 mg PO [id number] PRN #12 tab 05/09/20 12/15/20 Unknown Rx Atovaquone [Mepron] 750 mg PO BID 25 Days ml 08/19/20 12/15/20 Unknown Rx Dolutegravir [Tivicay] 50 mg PO QDAY #30 tablet 08/19/20 12/15/20 Unknown Rx Emtricitabine [Emtriva] 200 mg PO QDAY #30 capsule 08/19/20 12/15/20 Unknown Rx Famotidine [Pepcid] 20 mg PO BID #60 tablet 08/19/20 12/15/20 Unknown Rx Tenofovir [Viread] 300 mg PO QDAY #30 tablet 08/19/20 12/15/20 Unknown Rx Albuterol Sulfate [Proventil Hfa] 6.7 gm IH QID #1 hfa.aer.ad 11/26/20 12/15/20 Unknown Rx Benzonatate [Tessalon Perles] 100 mg PO Q8HR #20 capsule 12/18/20 Unknown Rx Dolutegravir [Tivicay] 50 mg PO DAILY #30 tablet 12/18/20 Unknown Rx Sulfamethoxazole/Trimethoprim 1 each PO DAILY #30 tablet 12/18/20 Unknown Rx [Bactrim DS TAB] Indomethacin 50 mg PO BID 5 Days capsule 01/17/21 Unknown Rx cephALEXin [Keflex] 500 mg PO TID 5 Days cap 01/17/21 Unknown Rx Active Meds: Active Medications Acetaminophen (Acetaminophen 325 Mg Tab) 650 mg PO Q4H PRN PRN Reason: Pain MILD(1-3)/Fever >100.5/LIU Albuterol (Albuterol 2.5 Mg/3 Ml Nebu) 2.5 mg IH Q4HRT PRN PRN Reason: Shortness Of Breath Albuterol/Ipratropium (Ipratropium/Albuterol Sulfate 3 Ml Ampul.Neb) 1 ampul IH Q6HRT [facility] Last Admin: 02/05/21 09:27 Dose: 1 ampul Documented by: Atovaquone (Atovaquone 750 Mg/5 Ml Oral Susp) 750 mg PO BID [facility] Benzonatate (Benzonatate 100 Mg Cap) 100 mg PO Q8HR [facility] Last Admin: 02/05/21 05:57 Dose: Not Given Documented by: Diphenhydramine HCl (Diphenhydramine 25 Mg Cap) 50 mg PO Q8H PRN PRN Reason: itching Emtricitabine (Emtricitabine 200 Mg Cap) 200 mg PO QDAY [facility] Famotidine (Famotidine 20 Mg Tab) 20 mg PO BID [facility] Last Admin: 02/05/21 09:38 Dose: 20 mg Documented by: Heparin Sodium (Porcine) (Heparin 5,000 Unit/1 Ml Vial) 5,000 unit SUB-Q Q8HR [facility] Last Admin: 02/05/21 05:56 Dose: 5,000 unit Documented by: Hydralazine HCl (Hydralazine 20 Mg/1 Ml Inj) 10 mg IV Q6H PRN PRN Reason: htn Ceftriaxone Sodium (Rocephin/Ns 2 Gm/100 Ml) 2 gm in 100 mls @ 200 mls/hr IV Q24HR [facility]; Protocol Last Admin: 02/05/21 09:39 Dose: 200 mls/hr Documented by: Azithromycin (Zithromax/Ns) 500 mg in 250 mls @ 250 mls/hr IV Q24H [facility]; Protocol Last Admin: 02/05/21 05:56 Dose: 250 mls/hr Documented by: Ondansetron HCl (Ondansetron 4 Mg/2 Ml Inj) 4 mg IV Q8H PRN PRN Reason: Nausea And Vomiting Sodium Chloride (Sodium Chloride 0.9% 10 Ml Flush Syringe) 10 ml IV BID [facility] Last Admin: 02/05/21 09:39 Dose: 10 ml Documented by: Sodium Chloride (Sodium Chloride 0.9% 10 Ml Flush Syringe) 10 ml IV PRN PRN PRN Reason: LINE FLUSH Tenofovir Disoproxil Fumarate (Tenofovir 300 Mg Tab) 300 mg PO QDAY [facility] Trimethoprim/Sulfamethoxazole (Sulfamethoxazole/Trimethoprim 800/160mg Ds Tab) 1 each PO DAILY [facility]; Protocol Last Admin: 02/05/21 09:38 Dose: 1 each Documented by: Review of Systems All systems: negative Physical Examination Vital signs: Vital Signs Temp Pulse Resp BP Pulse Ox 98.2 F 86 18 106/69 93 02/04/21 21:26 02/04/21 21:26 02/04/21 21:26 02/04/21 21:26 02/04/21 21:26 General appearance: no acute distress, alert Eyes: non-icteric Neck: supple, no JVD Ascultation: Bilateral: rhonchi Cardiovascular: irregular rhythm Gastrointestinal: normoactive bowel sounds, soft, non-tender Integumentary: normal Extremities: no cyanosis, no edema Musculoskeletal: no deformities Gait: normal posture normal mental status, non-focal exam, pupils equal and round, CN II-XII normal mood appropriate Results - Laboratory Findings CBC and BMP: 02/04/21 21:42 02/05/21 01:51 PT/INR, D-dimer D-Dimer 443.53 ng/mlDDU (0-234) H 02/05/21 01:51 Abnormal lab findings: Abnormal Labs 02/04/21 02/04/21 02/04/21 21:42 21:42 21:42 WBC 4.0 L Hgb 10.0 L Hct 32.2 L MCV 80 L MCH 25 L MCHC 31 L RDW 19.0 H Plt Count 519 H [place] % (Auto) 12.6 H Eos % (Auto) 8.7 H Lymph # (Auto) 0.7 L D-Dimer Sodium 136 L Glucose 74 L ALT < 5 L C-Reactive Protein Albumin 3.0 L 02/05/21 02/05/21 01:51 01:51 WBC Hgb Hct MCV MCH MCHC RDW Plt Count [place] % (Auto) Eos % (Auto) Lymph # (Auto) D-Dimer 443.53 H Sodium Glucose ALT C-Reactive Protein 1.60 H Albumin - Diagnostic Findings Chest x-ray: report reviewed, image reviewed Additional studies: Chest 2 views 02/05/21 INDICATION: Dyspnea IMPRESSION: Severe bilateral airspace pneumonia has worsened when compared to 12/12/2020. No significant pleural effusion identified Assessment and Plan 35 years old male with history of HIV, noncompliant with his medication was brought to the emergency room because of difficulty breathing and cough for the last few days. Patient was admitted here 3 months ago for bilateral pneumonia. Patient stated that he was doing well after he was discharged from the hospital. Patient denied any fever or chills. No nausea or vomiting. Patient tested positive for COVID-19 in November and he tested negative after that. In the emergency room patient chest x-ray showed severe bilateral airspace pneumonia has worsened when compared to 12/12/2020. No significant pleural effusion identified Patient has no history of smoking, alcohol or drug abuse. Works in [employer]. Not . No children. No known drug allergies. Patient complaining cough with productive white slightly red sputum. Denies chest pain. Complains shortness of breath with cough. Patient is on 2 litres O2. O2 saturation 96%. Patient afebrile. No leukocytosis. Blood pressure 106/72. Patient is on Zithromax, Ceftrioxane, Bactrim DS, Albuterol/atrovent aerosol treatments. S/C Heparin and famotidine. - Patient Problems (1) Acute respiratory failure Current Visit: No Status: Acute Plan to address problem: O2 2 litres via nasal canula. Albuterol/atrovent aerosol treatments S/C Heparin. Famotidine. (2) Bilateral pneumonia Current Visit: Yes Status: Acute Plan to address problem: Patient is on zithromax, ceftrioxone, Bactrim DS (3) HIV (human immunodeficiency virus infection) Current Visit: Yes Status: Chronic Plan to address problem: Recommend consult infectious diseases. (4) COVID-19 virus infection Current Visit: No Status: Acute Plan to address problem: History of COVID 19 infection. Patient says it is negative now.
--- NOTE | 2021-02-05 11:14 | Event Note ---
Date: 02/05/21 Patient admitted earlier this morning for the management of bilateral pneumonia after he presented to the emergency department with complaints of shortness of breath. Patient is on IV antibiotics. Patient had history of Covid a month ago and was discharged after treated. I put a consult for pulmonary to evaluate the patient. Patient was on 2 L of oxygen.
[2021-02-05] MEDS: DOLUTEGRAVIR 50 MG TAB PO SCH (12:22)
[2021-02-05] MEDS: EMTRICITABINE 200 MG CAP PO SCH (12:22)
[2021-02-05] MEDS: TENOFOVIR 300 MG TAB PO SCH (12:22)
--- NOTE | 2021-02-05 13:57 | Consultation ---
History of Present Illness - Reason for Consult Consult date: 02/05/21 pneumonia, HIV Requesting physician: ROCÍO LANGE - History of Present Illness The patient is a 35-year-old male with HIV, COVID-19 in October 2020, hospitalized in 12/2020 for bilateral pneumonia that has been chronic and has been present since 2019. Underwent a bronchoscopy by Dr. Ardon in October 2019. BAL culture grew usual respiratory shari, it seems fungal culture got canceled. Fungal stain was positive for hyphae and spores, negative for PJP. His CT scan in August 2020 showed a persistent masslike consolidation in the right hilar region. Repeat CT in 12/2020 showed right hilar mass with infiltrates and mediastinal lymphadenopathy. S/p transbronchial biopsy histo path negative for malignancy, fungal stain negative, AFB stain negative; Aspergillus antigen negative, Fungitell negative, cocci serology negative, AFB blood culture 12/12/2020 negative. Now admitted with cough, shortness of breath. CXR shows ongoing b/l airspace disease R>>L. Denies fever. States he is compliant with Biktarvy but has not followed up with Dr. Garcia. Review of Systems: General: no fevers,chills or rigors HEENT: no new visual disturbance Respiratory: cough, shortness of breath Cardiovascular: No chest pain, syncope Gastrointestinal: No nausea, vomiting or diarrhea Genitourinary: No dysuria or hematuria Musculoskeletal: No new or worsening neck pain or back pain Neurologic: No headaches, seizures Hematologic: No easy bruising or bleeding Endocrine: No night sweats or acute weight loss Skin: negative for rash, jaundice Psychiatric: No suicidal or homicidal ideation Past History Past Medical History: HIV/AIDS, other (Pneumonia) Medications and Allergies Allergies Allergy/AdvReac Type Severity Reaction Status Date / Time No Known Allergies Allergy Verified 01/17/21 15:42 Home Medications Medication Instructions Recorded Confirmed Last Taken Type Ipratropium/Albuterol Sulfate 1 ampul IH Q6HR #120 ampul.neb 02/24/20 12/15/20 Unknown Rx [DUONEB *Not for PRN Use*] diphenhydrAMINE [Benadryl CAP] 50 mg PO Q8HR PRN #14 capsule 02/26/20 12/15/20 Unknown Rx Promethazine HCl [Promethazine TAB] 12.5 mg PO [id number] PRN #12 tab 05/09/20 12/15/20 Unknown Rx Atovaquone [Mepron] 750 mg PO BID 25 Days ml 08/19/20 12/15/20 Unknown Rx Dolutegravir [Tivicay] 50 mg PO QDAY #30 tablet 08/19/20 12/15/20 Unknown Rx Emtricitabine [Emtriva] 200 mg PO QDAY #30 capsule 08/19/20 12/15/20 Unknown Rx Famotidine [Pepcid] 20 mg PO BID #60 tablet 08/19/20 12/15/20 Unknown Rx Tenofovir [Viread] 300 mg PO QDAY #30 tablet 08/19/20 12/15/20 Unknown Rx Albuterol Sulfate [Proventil Hfa] 6.7 gm IH QID #1 hfa.aer.ad 11/26/20 12/15/20 Unknown Rx Benzonatate [Tessalon Perles] 100 mg PO Q8HR #20 capsule 12/18/20 Unknown Rx Dolutegravir [Tivicay] 50 mg PO DAILY #30 tablet 12/18/20 Unknown Rx Sulfamethoxazole/Trimethoprim 1 each PO DAILY #30 tablet 12/18/20 Unknown Rx [Bactrim DS TAB] Indomethacin 50 mg PO BID 5 Days capsule 01/17/21 Unknown Rx cephALEXin [Keflex] 500 mg PO TID 5 Days cap 01/17/21 Unknown Rx Active Meds: Active Medications Acetaminophen (Acetaminophen 325 Mg Tab) 650 mg PO Q4H PRN PRN Reason: Pain MILD(1-3)/Fever >100.5/LIU Albuterol (Albuterol 2.5 Mg/3 Ml Nebu) 2.5 mg IH Q4HRT PRN PRN Reason: Shortness Of Breath Albuterol/Ipratropium (Ipratropium/Albuterol Sulfate 3 Ml Ampul.Neb) 1 ampul IH Q6HRT PENDING SALE TO [facility] Last Admin: 02/05/21 09:27 Dose: 1 ampul Documented by: Benzonatate (Benzonatate 100 Mg Cap) 100 mg PO Q8HR PENDING SALE TO [facility] Last Admin: 02/05/21 05:57 Dose: Not Given Documented by: Diphenhydramine HCl (Diphenhydramine 25 Mg Cap) 50 mg PO Q8H PRN PRN Reason: itching Emtricitabine (Emtricitabine 200 Mg Cap) 200 mg PO QDAY PENDING SALE TO [facility] Last Admin: 02/05/21 12:22 Dose: 200 mg Documented by: Famotidine (Famotidine 20 Mg Tab) 20 mg PO BID PENDING SALE TO [facility] Last Admin: 02/05/21 09:38 Dose: 20 mg Documented by: Heparin Sodium (Porcine) (Heparin 5,000 Unit/1 Ml Vial) 5,000 unit SUB-Q Q8HR PENDING SALE TO [facility] Last Admin: 02/05/21 05:56 Dose: 5,000 unit Documented by: Hydralazine HCl (Hydralazine 20 Mg/1 Ml Inj) 10 mg IV Q6H PRN PRN Reason: htn Ondansetron HCl (Ondansetron 4 Mg/2 Ml Inj) 4 mg IV Q8H PRN PRN Reason: Nausea And Vomiting Sodium Chloride (Sodium Chloride 0.9% 10 Ml Flush Syringe) 10 ml IV BID PENDING SALE TO [facility] Last Admin: 02/05/21 09:39 Dose: 10 ml Documented by: Sodium Chloride (Sodium Chloride 0.9% 10 Ml Flush Syringe) 10 ml IV PRN PRN PRN Reason: LINE FLUSH Tenofovir Disoproxil Fumarate (Tenofovir 300 Mg Tab) 300 mg PO QDAY PENDING SALE TO [facility] Last Admin: 02/05/21 12:22 Dose: 300 mg Documented by: Trimethoprim/Sulfamethoxazole (Sulfamethoxazole/Trimethoprim 800/160mg Ds Tab) 1 each PO DAILY PENDING SALE TO [facility]; Protocol Last Admin: 02/05/21 09:38 Dose: 1 each Documented by: Physical Examination - Physical Exam Narrative exam: Physical Exam: Constitutional: Alert, cooperative. No acute distress Head, Ears, Nose: Normocephalic, atraumatic. External ears, nose normal Eyes: Conjunctivae/corneas clear. No icterus. No ptosis. Neck: Supple, no meningeal signs Cardiovascular: S1, S2 normal. Respiratory: AE fair b/l, occasional rhonchi + GI: Soft, non-tender; bowel sounds normal. No peritoneal signs Musculoskeletal: b/l pedal edema. Skin: b/L LE with purplish lesions Hem/Lymphatic: No palpable cervical or supraclavicular nodes. No lymphangitis Psych: Mood ok. Affect normal Neurological: Awake, alert, oriented. No gross abnormality - Constitutional Vitals: Vital Signs Temp Pulse Resp BP Pulse Ox 97.6 F 89 18 106/62 92 02/05/21 08:25 02/05/21 11:00 02/05/21 08:35 02/05/21 10:59 02/05/21 11:00 Temperature -Last 24 Hours Temperature 97.6 F Temperature 98.2 F Results - Labs CBC & Chem 7: 02/04/21 21:42 02/05/21 01:51 Labs: Abnormal lab results 02/04/21 02/04/21 02/04/21 Range/Units 21:42 21:42 21:42 WBC 4.0 L (4.5-11.0) K/mm3 Hgb 10.0 L (11.8-15.2) gm/dl Hct 32.2 L (35.5-45.6) % MCV 80 L (84-94) fl MCH 25 L (28-32) pg MCHC 31 L (32-34) % RDW 19.0 H (13.2-15.2) % Plt Count 519 H (140-440) K/mm3 [place] % (Auto) 12.6 H (0.0-7.3) % Eos % (Auto) 8.7 H (0.0-4.3) % Lymph # (Auto) 0.7 L (1.2-5.4) K/mm3 D-Dimer (0-234) ng/mlDDU Sodium 136 L (137-145) mmol/L Glucose 74 L (75-100) mg/dL ALT < 5 L (7-56) units/L C-Reactive Protein (0.00-1.30) mg/dL Albumin 3.0 L (3.9-5) g/dL 02/05/21 02/05/21 Range/Units 01:51 01:51 WBC (4.5-11.0) K/mm3 Hgb (11.8-15.2) gm/dl Hct (35.5-45.6) % MCV (84-94) fl MCH (28-32) pg MCHC (32-34) % RDW (13.2-15.2) % Plt Count (140-440) K/mm3 [place] % (Auto) (0.0-7.3) % Eos % (Auto) (0.0-4.3) % Lymph # (Auto) (1.2-5.4) K/mm3 D-Dimer 443.53 H (0-234) ng/mlDDU Sodium (137-145) mmol/L Glucose (75-100) mg/dL ALT (7-56) units/L C-Reactive Protein 1.60 H (0.00-1.30) mg/dL Albumin (3.9-5) g/dL - Imaging and Cardiology Chest x-ray: report reviewed, image reviewed (b/l airspace disease R>>L) Assessment and Plan Cultures: Previous chart and cultures reviewed. 12/06/2020 blood culture: no growth 12/06/2020 serum cryptococcal antigen: Negative 12/06/2020 fungal blood culture: In process 12/07/2020 sputum culture: Oral contamination Syphilis IgG positive, 12/07/2020 RPR titer: 1:2 12/06/2020 HIV RNA PCR: 51 12/08/2020 sputum smear for fungus and AFB: Negative A/P: 35-year-old male with HIV, COVID-19 in October 2020, hospitalized in 12/2020 for bilateral pneumonia: #Chronic bilateral pneumonia, right greater than left: Has undergone extensive work-up in the past. Underwent a bronchoscopy by Dr. Ardon in October 2019. BAL culture grew usual respiratory shari, it seems fungal culture got canceled. Fungal stain was positive for hyphae and spores, negative for PJP. His CT scan in August 2020 showed a persistent masslike consolidation in the right hilar region. Repeat CT in 12/2020 showed right hilar mass with infiltrates and mediastinal lymphadenopathy. Transbronchial biopsy in December 2020 showed benign lung tissue and negative stains for AFB, fungi, negative for malignancy. BAL cytology showed proteinaceous debris, mild chronic inflammatory cells, rare benign bronchial epithelial cells present negative for malignant cells. #HIV: Compliant with Biktarvy. Viral load 51 in 12/2020, CD4 count 35, 10%. 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 #Leukopenia, reactive thrombocytosis Recs: -HIV RNA PCR and CD4 count ordered -continue Biktarvy (TI per hospital formulary to TDF, FTC, DTG) -Procal remains low, abx discontinued -Bactrim prophylaxis for opportunistic infections -Patient has undergone extensive work up for chronic bilateral pneumonia as discussed above. May need an open lung biopsy -Per chart review, I was unable to locate BAL AFB culture, hence ordered. BAL AFB stain was negative. -Repeat CT chest, abdomen and pelvis ordered León Velásquez MD, FACP [facility] ([facility] O: [phone]
[2021-02-06 02:34] LABS: Basophils % (Auto) 0.2 % (0.0-1.8); Hematocrit 32.2 % (35.5-45.6); Hemoglobin 10.2 gm/dl (11.8-15.2); Lymphocytes # (Auto) 0.7 K/mm3 (1.2-5.4); Lymphocytes % (Auto) 15.7 % (13.4-35.0); Mean Corpuscular HGB Conc 32 % (32-34); Mean Corpuscular Volume 81 fl (84-94); Monocytes # (Auto) 0.6 K/mm3 (0.0-0.8); Monocytes % (Auto) 12.5 % (0.0-7.3); Platelet Count 490 K/mm3 (140-440); Red Blood Count 3.99 M/mm3 (3.65-5.03); Red Cell Distribution Width 18.5 % (13.2-15.2)
[2021-02-06] MEDS: IPRATROPIUM/ALBUTEROL SULFATE 3 ML AMPUL.NEB IH SCH ×6 (02:37→21:15)
[2021-02-06 02:53] LABS: BUN/Creatinine Ratio 14; Blood Urea Nitrogen 13 mg/dL (9-20); Calcium 8.2 mg/dL (8.4-10.2); Hemolysis Index 1
[2021-02-06] MEDS: BENZONATATE 100 MG CAP PO SCH ×3 (06:14→22:51)
[2021-02-06] MEDS: HEPARIN 5,000 UNIT/1 ML VIAL SUB-Q SCH ×3 (06:15→22:52)
--- NOTE | 2021-02-06 07:54 | Progress Note ---
Assessment and Plan Assessment and plan: (1) Bilateral pneumonia Current Visit: Yes Status: Acute Plan to address problem: Admit the patient to the medical telemetry. Oxygen via nasal cannula 3 L/min. DuoNeb by nebulizer every 4 hours.. Albuterol via nebulizer every 4 hours as needed. Rocephin 2 g IV daily. Zithromax 500 IV daily. We do the blood cultures sputum culture. We will consult infectious disease for evaluation. (2) Suspected COVID-19 virus infection Current Visit: Yes Status: Acute Plan to address problem: Oxygen via nasal cannula 3 L/min. DuoNeb by nebulizer every 4 hours.. Albuterol via nebulizer every 4 hours as needed. Rocephin 2 g IV daily. Zithromax 500 IV daily. We do the blood cultures sputum culture. We will cons ult infectious disease for evaluation. Solu-Medrol 125 mg IV x1 dose. Follow Covid markers and Covid PCR result (3) Shortness of breath Current Visit: No Status: Acute Plan to address problem: Oxygen via nasal cannula 3 L/min. DuoNeb by nebulizer every 4 hours.. Albuterol via nebulizer every 4 hours as needed. Rocephin 2 g IV daily. Zithromax 500 IV daily. Solu-Medrol 125 mg IV x1 dose. We do the blood cultures sputum culture. We will consult infectious disease for evaluation. (4) HIV (human immunodeficiency virus infection) Current Visit: Yes Status: Chronic Plan to address problem: Tenofovir 300 mg p.o. daily. Bactrim 1 tablet p.o. daily. Will consult infectious disease for further evaluation and treatment (5) DVT prophylaxis Current Visit: No Status: Acute Plan to address problem: Heparin 5000 units subcu every 8 hours for DVT prophylaxis. Pepcid 20 mg p.o. twice daily for GI prophylaxis. Patient is a full code. 01/19/2021; patient was seen by ID and discontinued antibiotics because procalcitonin level is low. Patient is on Bactrim. ID is considering open lung biopsy. Pulmonary was consulted but did not comment about the biopsy. CT abdomen and chest was done and reading is pending. History Interval history: Patient was seen and evaluated this morning Patient did not have any shortness of breath today Patient is on 2 L of oxygen. Hospitalist Physical - Physical exam Narrative exam: Not in cardiopulmonary distress. The patient appeared well nourished and normally developed. Vital signs as documented. Head exam is unremarkable. No scleral icterus . Neck is without jugular venous distension, thyromegaly, or carotid bruits. Lungs are clear to auscultation. Cardiac exam reveals regular rate and Rhythm. Abdominal exam reveals normal bowel sounds, nontender, no organomegaly. 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 No focal weakness. - Constitutional Vitals: Temp Pulse Resp BP Pulse Ox 97.9 F 90 22 94/51 93 02/05/21 16:12 02/05/21 22:00 02/05/21 22:00 02/05/21 16:12 02/05/21 22:00 General appearance: Present: no acute distress, well-nourished Results - Labs CBC & Chem 7: 02/06/21 02:10 02/06/21 02:10 Labs: Laboratory Last Values WBC 4.6 K/mm3 (4.5-11.0) 02/06/21 02:10 RBC 3.99 M/mm3 (3.65-5.03) 02/06/21 02:10 Hgb 10.2 gm/dl (11.8-15.2) L 02/06/21 02:10 Hct 32.2 % (35.5-45.6) L 02/06/21 02:10 MCV 81 fl (84-94) L 02/06/21 02:10 MCH 26 pg (28-32) L 02/06/21 02:10 MCHC 32 % (32-34) 02/06/21 02:10 RDW 18.5 % (13.2-15.2) H 02/06/21 02:10 Plt Count 490 K/mm3 (140-440) H 02/06/21 02:10 Lymph % (Auto) 15.7 % (13.4-35.0) 02/06/21 02:10 [place] % (Auto) 12.5 % (0.0-7.3) H 02/06/21 02:10 Eos % (Auto) 0.0 % (0.0-4.3) 02/06/21 02:10 Baso % (Auto) 0.2 % (0.0-1.8) 02/06/21 02:10 Lymph # (Auto) 0.7 K/mm3 (1.2-5.4) L 02/06/21 02:10 [place] # (Auto) 0.6 K/mm3 (0.0-0.8) 02/06/21 02:10 Eos # (Auto) 0.0 K/mm3 (0.0-0.4) 02/06/21 02:10 Baso # (Auto) 0.0 K/mm3 (0.0-0.1) 02/06/21 02:10 Seg Neutrophils % 71.6 % (40.0-70.0) H 02/06/21 02:10 Seg Neutrophils # 3.3 K/mm3 (1.8-7.7) 02/06/21 02:10 D-Dimer 443.53 ng/mlDDU (0-234) H 02/05/21 01:51 Sodium 135 mmol/L (137-145) L 02/06/21 02:10 Potassium 4.2 mmol/L (3.6-5.0) 02/06/21 02:10 Chloride 102.4 mmol/L (98-107) 02/06/21 02:10 Carbon Dioxide 23 mmol/L (22-30) 02/06/21 02:10 Anion Gap 14 mmol/L 02/06/21 02:10 BUN 13 mg/dL (9-20) 02/06/21 02:10 Creatinine 0.9 mg/dL (0.8-1.3) 02/06/21 02:10 Estimated GFR > 60 ml/min 02/06/21 02:10 BUN/Creatinine Ratio 14 % 02/06/21 02:10 Glucose 89 mg/dL (75-100) 02/06/21 02:10 Calcium 8.2 mg/dL (8.4-10.2) L 02/06/21 02:10 Ferritin 111.6 ng/mL (30.0-300.0) 02/05/21 01:51 Total Bilirubin 0.20 mg/dL (0.1-1.2) 02/04/21 21:42 Direct Bilirubin < 0.2 mg/dL (0-0.2) 02/04/21 21:42 Indirect Bilirubin 0.0 mg/dL 02/04/21 21:42 AST 9 units/L (5-40) 02/04/21 21:42 ALT < 5 units/L (7-56) L 02/04/21 21:42 Alkaline Phosphatase 67 units/L (35-129) 02/04/21 21:42 Lactate Dehydrogenase 155 units/L (91-180) 02/05/21 01:51 C-Reactive Protein 1.60 mg/dL (0.00-1.30) H 02/05/21 01:51 Total Protein 6.9 g/dL (6.3-8.2) 02/04/21 21:42 Albumin 3.0 g/dL (3.9-5) L 02/04/21 21:42 Albumin/Globulin Ratio 0.8 % 02/04/21 21:42 Procalcitonin < 0.05 ng/mL (<0.15) 02/05/21 01:51 Coronavirus (PCR) Negative (Negative) 02/05/21 Unknown Microbiology: Microbiology 02/05/21 01:51 Peripheral/Venous Blood Culture - Preliminary NO GROWTH AFTER 24 HOURS 02/05/21 03:16 Peripheral/Venous Blood Culture - Preliminary NO GROWTH AFTER 24 HOURS Active Medications - Current Medications Current Medications: Generic Name Dose Route Start Last Admin Trade Name Freq PRN Reason Stop Dose Admin Acetaminophen 650 mg 02/05/21 02:52 Acetaminophen 325 Mg Tab PO Q4H PRN Pain MILD(1-3)/Fever >100.5/LIU Albuterol 2.5 mg 02/05/21 02:52 Albuterol 2.5 Mg/3 Ml Nebu IH Q4HRT PRN Shortness Of Breath Albuterol/Ipratropium 1 ampul 02/05/21 08:00 02/05/21 21:05 Ipratropium/Albuterol Sulfate 3 Ml Ampul.Neb IH 1 ampul Q6HRT CEFERINO Administration Benzonatate 100 mg 02/05/21 06:00 02/06/21 06:14 Benzonatate 100 Mg Cap PO 100 mg Q8HR CEFERINO Administration Diphenhydramine HCl 50 mg 02/05/21 04:00 Diphenhydramine 25 Mg Cap PO Q8H PRN itching Emtricitabine 200 mg 02/05/21 10:00 02/05/21 12:22 Emtricitabine 200 Mg Cap PO 200 mg QDAY CEFERINO Administration Famotidine 20 mg 02/05/21 10:00 02/05/21 21:35 Famotidine 20 Mg Tab PO 20 mg BID CEFERINO Administration Heparin Sodium (Porcine) 5,000 unit 02/05/21 06:00 02/06/21 06:15 Heparin 5,000 Unit/1 Ml Vial SUB-Q 5,000 unit Q8HR CEFERINO Administration Hydralazine HCl 10 mg 02/05/21 02:58 Hydralazine 20 Mg/1 Ml Inj IV Q6H PRN htn Ondansetron HCl 4 mg 02/05/21 02:52 Ondansetron 4 Mg/2 Ml Inj IV Q8H PRN Nausea And Vomiting Sodium Chloride 10 ml 02/05/21 10:00 02/05/21 21:41 Sodium Chloride 0.9% 10 Ml Flush Syringe IV 10 ml BID CEFERINO Administration Sodium Chloride 10 ml 02/05/21 02:52 Sodium Chloride 0.9% 10 Ml Flush Syringe IV PRN PRN LINE FLUSH Tenofovir Disoproxil Fumarate 300 mg 02/05/21 10:00 02/05/21 12:22 Tenofovir 300 Mg Tab PO 300 mg QDAY CEFERINO Administration Trimethoprim/Sulfamethoxazole 1 each 02/05/21 10:00 02/05/21 09:38 Sulfamethoxazole/Trimethoprim 800/160mg Ds Tab PO 1 each DAILY CEFERINO Administration Protocol
[2021-02-06] MEDS: SULFAMETHOXAZOLE/TRIMETHOPRIM 800/160MG DS TAB PO SCH (11:00)
[2021-02-06] MEDS: FAMOTIDINE 20 MG TAB PO SCH ×2 (11:00→22:51)
--- NOTE | 2021-02-06 11:26 | Progress Note ---
Assessment and Plan Cultures: Previous chart and cultures reviewed. 12/06/2020 blood culture: no growth 12/06/2020 serum cryptococcal antigen: Negative 12/06/2020 fungal blood culture: In process 12/07/2020 sputum culture: Oral contamination Syphilis IgG positive, 12/07/2020 RPR titer: 1:2 12/06/2020 HIV RNA PCR: 51 12/08/2020 sputum smear for fungus and AFB: Negative Current admission: 02/05/2021 blood culture: No growth 02/05/2021 COVID-19 PCR: Negative A/P: 35-year-old male with HIV, COVID-19 in October 2020, hospitalized in 12/2020 for bilateral pneumonia: #Chronic bilateral pneumonia, right greater than left: Has undergone extensive work-up in the past. Underwent a bronchoscopy by Dr. Ardon in October 2019. BAL culture grew usual respiratory shari, it seems fungal culture got canceled. Fungal stain was positive for hyphae and spores, negative for PJP. His CT scan in August 2020 showed a persistent masslike consolidation in the right hilar region. Repeat CT in 12/2020 showed right hilar mass with infiltrates and mediastinal lymphadenopathy. Transbronchial biopsy in December 2020 showed benign lung tissue and negative stains for AFB, fungi, negative for malignancy. BAL cytology showed proteinaceous debris, mild chronic inflammatory cells, rare benign bronchial epithelial cells present negative for malignant cells. #HIV: Compliant with Biktarvy. Viral load 51 in 12/2020, CD4 count 35, 10%. 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 #Leukopenia, reactive thrombocytosis Recs: -f/u HIV RNA PCR and CD4 count ordered -continue Biktarvy (TI per hospital formulary to TDF, FTC, DTG) -continue Bactrim prophylaxis for opportunistic infections -Patient has undergone extensive work up for chronic bilateral pneumonia as discussed above. May need an open lung biopsy for definitive diagnosis -Per chart review, I was unable to locate BAL AFB culture, hence ordered sputum AFB culture. BAL AFB stain was negative. -f/u CT chest, abdomen and pelvis results León Velásquez MD, FACP [facility] ([facility] O: [phone] Subjective Date of service: 02/06/21 Interval history: No fever. COVID negative. Breathing is fair. No significant cough Objective - Exam Narrative Exam: Physical Exam: Constitutional: Alert, cooperative. No acute distress Head, Ears, Nose: Normocephalic, atraumatic. External ears, nose normal Eyes: Conjunctivae/corneas clear. No icterus. No ptosis. Neck: Supple, no meningeal signs Cardiovascular: S1, S2 normal. Respiratory: AE fair b/l, occasional rhonchi + GI: Soft, non-tender; bowel sounds normal. No peritoneal signs Musculoskeletal: b/l pedal edema. Skin: b/L LE with purplish lesions Hem/Lymphatic: No palpable cervical or supraclavicular nodes. No lymphangitis Psych: Mood ok. Affect normal Neurological: Awake, alert, oriented. No gross abnormality - Constitutional Vitals: Vital Signs Temp Pulse Resp BP Pulse Ox 97.9 F 90 22 94/51 93 02/05/21 16:12 02/05/21 22:00 02/05/21 22:00 02/05/21 16:12 02/05/21 22:00 Temperature -Last 24 Hours Temperature 97.9 F - Labs CBC & Chem 7: 02/06/21 02:10 02/06/21 02:10 Labs: Abnormal lab results 02/06/21 02/06/21 Range/Units 02:10 02:10 Hgb 10.2 L (11.8-15.2) gm/dl Hct 32.2 L (35.5-45.6) % MCV 81 L (84-94) fl MCH 26 L (28-32) pg RDW 18.5 H (13.2-15.2) % Plt Count 490 H (140-440) K/mm3 [place] % (Auto) 12.5 H (0.0-7.3) % Lymph # (Auto) 0.7 L (1.2-5.4) K/mm3 Seg Neutrophils % 71.6 H (40.0-70.0) % Sodium 135 L (137-145) mmol/L Calcium 8.2 L (8.4-10.2) mg/dL
[2021-02-06] MEDS: EMTRICITABINE 200 MG CAP PO SCH (12:05)
[2021-02-06] MEDS: DOLUTEGRAVIR 50 MG TAB PO SCH (13:20)
[2021-02-06] MEDS: TENOFOVIR 300 MG TAB PO SCH (13:20)
--- NOTE | 2021-02-06 14:34 | Progress Note ---
Assessment and Plan 35 years old male with history of HIV, noncompliant with his medication was brought to the emergency room because of difficulty breathing and cough for the last few days. Patient was admitted here 3 months ago for bilateral pneumonia. Patient stated that he was doing well after he was discharged from the hospital. Patient denied any fever or chills. No nausea or vomiting. Patient tested positive for COVID-19 in November and he tested negative after that. In the emergency room patient chest x-ray showed severe bilateral airspace p neumonia has worsened when compared to 12/12/2020. No significant pleural effusion identified Patient has no history of smoking, alcohol or drug abuse. Works in [employer]. Not . No children. No known drug allergies. Patient complaining cough with productive white slightly red sputum. Denies ches t pain. Complains shortness of breath with cough. Patient is on 2 litres O2. O2 saturation 96%. Patient afebrile. No leukocytosis. Blood pressure 106/72. Patient is on Zithromax, Ceftrioxane, Bactrim DS, Albuterol/atrovent aerosol treatments. S/C Heparin and famotidine. 02/06/21 Patient alert, awake. Resting on 3 litres O2. O2 saturation 94%. Denies chest pain or shortness of breath at this time. Patient says cough is getting better. Patient afebrile. No Leukocytosis. Patient has bronchoscopy during previous admissions. Patient has CAT scan of chest yesterday. Report still pending. Patient presently on Bactrim, albuterol/atrovent aerosol treatments,S/C Heparin and Famotidine. - Patient Problems (1) Acute respiratory failure Current Visit: No Status: Acute Plan to address problem: O2 3 litres via nasal canula. Albuterol/atrovent aerosol treatments S/C Heparin. Famotidine. (2) Bilateral pneumonia Current Visit: Yes Status: Acute Plan to address problem: Patient is on Bactrim DS (3) HIV (human immunodeficiency virus infection) Current Visit: Yes Status: Chronic Plan to address problem: Management as per infectious diseases. (4) COVID-19 virus infection Current Visit: No Status: Acute Plan to address problem: History of COVID 19 infection. Patient says it is negative now. Subjective Date of service: 02/06/21 Interval history: 35 years old male with history of HIV, noncompliant with his medication was brought to the emergency room because of difficulty breathing and cough for the last few days. Patient was admitted here 3 months ago for bilateral pneumonia. Patient stated that he was doing well after he was discharged from the hospital. Patient denied any fever or chills. No nausea or vomiting. Patient tested positive for COVID-19 in November and he tested negative after that. In the emergency room patient chest x-ray showed severe bilateral airspace pneumonia has worsened when compared to 12/12/2020. No significant pleural effusion identified Patient has no history of smoking, alcohol or drug abuse. Works in [employer]. Not . No children. No known drug allergies. Patient complaining cough with productive white slightly red sputum. Denies chest pain. Complains shortness of breath with cough. Patient is on 2 litres O2. O2 saturation 96%. Patient afebrile. No leukocytosis. Blood pressure 106/72. Patient is on Zithromax, Ceftrioxane, Bactrim DS, Albuterol/atrovent aerosol treatments. S/C Heparin and famotidine. 02/06/21 Patient alert, awake. Resting on 3 litres O2. O2 saturation 94%. Denies chest pain or shortness of breath at this time. Patient says cough is getting better. Patient afebrile. No Leukocytosis. Patient has bronchoscopy during previous admissions. Patient has CAT scan of chest yesterday. Report still pending. Patient presently on Bactrim, albuterol/atrovent aerosol treatments,S/C Heparin and Famotidine. Objective Vital Signs - 12hr 02/06/21 02/06/21 02/06/21 08:20 10:00 13:03 Temperature 98.1 F Pulse Rate 86 Pulse Rate [ 98 H Anterior] Pulse Rate [ 96 H Posterior] Respiratory 19 Rate Respiratory 18 Rate [Anterior] Respiratory 18 Rate [Posterior ] Blood Pressure 100/67 O2 Sat by Pulse 87 90 Oximetry Constitutional: no acute distress, alert Eyes: non-icteric ENT: oropharynx moist Neck: supple, no JVD Ascultation: Bilateral: rhonchi Cardiovascular: irregular rhythm Gastrointestinal: normoactive bowel sounds, soft, non-tender Integumentary: normal Extremities: no cyanosis, no edema Neurologic: normal mental status, non-focal exam, pupils equal and round, CN II- XII normal Psychiatric: mood appropriate CBC and BMP: 02/06/21 02:10 02/06/21 02:10 ABG, PT/INR, D-dimer: PT/INR, D-dimer D-Dimer 443.53 ng/mlDDU (0-234) H 02/05/21 01:51 Abnormal lab findings: Abnormal Labs 02/04/21 02/04/21 02/04/21 21:42 21:42 21:42 WBC 4.0 L Hgb 10.0 L Hct 32.2 L MCV 80 L MCH 25 L MCHC 31 L RDW 19.0 H Plt Count 519 H [place] % (Auto) 12.6 H Eos % (Auto) 8.7 H Lymph # (Auto) 0.7 L Seg Neutrophils % D-Dimer Sodium 136 L Glucose 74 L Calcium ALT < 5 L C-Reactive Protein Albumin 3.0 L 02/05/21 02/05/21 02/06/21 01:51 01:51 02:10 WBC Hgb 10.2 L Hct 32.2 L MCV 81 L MCH 26 L MCHC RDW 18.5 H Plt Count 490 H [place] % (Auto) 12.5 H Eos % (Auto) Lymph # (Auto) 0.7 L Seg Neutrophils % 71.6 H D-Dimer 443.53 H Sodium Glucose Calcium ALT C-Reactive Protein 1.60 H Albumin 02/06/21 02:10 WBC Hgb Hct MCV MCH MCHC RDW Plt Count [place] % (Auto) Eos % (Auto) Lymph # (Auto) Seg Neutrophils % D-Dimer Sodium 135 L Glucose Calcium 8.2 L ALT C-Reactive Protein Albumin CT scan - chest: report reviewed (Results pending.), image reviewed
[2021-02-07] MEDS: HEPARIN 5,000 UNIT/1 ML VIAL SUB-Q SCH ×3 (06:03→22:07)
[2021-02-07] MEDS: BENZONATATE 100 MG CAP PO SCH ×3 (06:03→22:07)
[2021-02-07] MEDS: IPRATROPIUM/ALBUTEROL SULFATE 3 ML AMPUL.NEB IH SCH ×4 (06:21→20:43)
[2021-02-07] MEDS: FAMOTIDINE 20 MG TAB PO SCH ×2 (10:49→22:07)
[2021-02-07] MEDS: SULFAMETHOXAZOLE/TRIMETHOPRIM 800/160MG DS TAB PO SCH (10:49)
[2021-02-07] MEDS: DOLUTEGRAVIR 50 MG TAB PO SCH (10:50)
[2021-02-07] MEDS: TENOFOVIR 300 MG TAB PO SCH (10:50)
[2021-02-07] MEDS: EMTRICITABINE 200 MG CAP PO SCH (10:50)
--- NOTE | 2021-02-07 11:58 | Progress Note ---
Assessment and Plan Cultures: Previous chart and cultures reviewed. 12/06/2020 blood culture: no growth 12/06/2020 serum cryptococcal antigen: Negative 12/06/2020 fungal blood culture: In process 12/07/2020 sputum culture: Oral contamination Syphilis IgG positive, 12/07/2020 RPR titer: 1:2 12/06/2020 HIV RNA PCR: 51 12/08/2020 sputum smear for fungus and AFB: Negative Current admission: 02/05/2021 blood culture: No growth 02/05/2021 COVID-19 PCR: Negative A/P: 35-year-old male with HIV, COVID-19 in October 2020, hospitalized in 12/2020 for bilateral pneumonia: #Chronic bilateral pneumonia, right greater than left: Has undergone extensive work-up in the past. Underwent a bronchoscopy by Dr. Ardon in October 2019. BAL culture grew usual respiratory shari, it seems fungal culture got canceled. Fungal stain was positive for hyphae and spores, negative for PJP. His CT scan in August 2020 showed a persistent masslike consolidation in the right hilar region. Repeat CT in 12/2020 showed right hilar mass with infiltrates and mediastinal lymphadenopathy. Transbronchial biopsy in December 2020 showed benign lung tissue and negative stains for AFB, fungi, negative for malignancy. BAL cytology showed proteinaceous debris, mild chronic inflammatory cells, rare benign bronchial epithelial cells present negative for malignant cells. #HIV: Compliant with Biktarvy. Viral load 51 in 12/2020, CD4 count 35, 10%. 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 #Leukopenia, reactive thrombocytosis Recs: -f/u HIV RNA PCR and CD4 count -f/u CT chest, abdomen and pelvis results -Patient has undergone extensive work up for chronic bilateral pneumonia as discussed above. May need an open lung biopsy for definitive diagnosis -Per chart review, I was unable to locate BAL AFB culture, hence ordered sputum AFB culture but not collected yet. BAL AFB stain was negative. -also ordered TB Quantiferon -continue Biktarvy (TI per hospital formulary to TDF, FTC, DTG) -continue Bactrim for opportunistic infections prophylaxis León Velásquez MD, FACP [facility] ([facility] O: [phone] Subjective Date of service: 02/07/21 Interval history: No fever. Breathing is fair. No significant cough. CT results still not back. Objective - Exam Narrative Exam: Physical Exam: Constitutional: Alert, cooperative. No acute distress Head, Ears, Nose: Normocephalic, atraumatic. External ears, nose normal Eyes: Conjunctivae/corneas clear. No icterus. No ptosis. Neck: Supple, no meningeal signs Cardiovascular: S1, S2 normal. Respiratory: AE fair b/l, occasional rhonchi + GI: Soft, non-tender; bowel sounds normal. No peritoneal signs Musculoskeletal: b/l pedal edema. Skin: b/L LE with purplish lesions Hem/Lymphatic: No palpable cervical or supraclavicular nodes. No lymphangitis Psych: Mood ok. Affect normal Neurological: Awake, alert, oriented. No gross abnormality - Constitutional Vitals: Vital Signs Temp Pulse Resp BP Pulse Ox 98.1 F 96 H 18 103/66 93 02/07/21 04:14 02/07/21 08:52 02/07/21 08:52 02/07/21 04:14 02/07/21 04:14 Temperature -Last 24 Hours Temperature 98.1 F Temperature 97.9 F Temperature 98.1 F Temperature 98.1 F - Labs CBC & Chem 7: 02/06/21 02:10 02/06/21 02:10
--- NOTE | 2021-02-07 13:55 | Progress Note ---
Assessment and Plan Acute hypoxemic respiratory failure. Bilateral pneumonia, chronic. Human immunodeficiency virus positive. The patient under investigation for COVID-19 infection. Leukopenia. Anemia that is microcytic. - he will benefit fro CTSU evaluation for possible lung biopsy - prn antitussive's - anti-infective's and ART per ID recommendations - continue care as below otherwise; - continue to wean supplemental oxygen to keep O2 sats > 92% - continue Bronchodilators (JJ) with pulm hygiene per RT - continue to avoid nephrotoxins, renally dose all medications - mobility protocols to prevent pressure ulcers - PT/OT as tolerated - Wound care per RN/WCT - accuchecks with glycemic control per SSI for target blood glucose < 180 mg/dL - tobacco abstinence strongly counseled at the bedside - home oxygen evaluation at discharge - GI & VTE prophylaxis - Flu & pneumovax per protocol - Pulmonary out patient follow up for PFTs and optimization of respiratory status - prn analgesia per pain score - continue other care per attending / other consultants ... re-evaluate in am & prn Subjective Date of service: 02/07/21 Principal diagnosis: Acute hypoxemic respiratory failure; Bilateral pneumonia; HIV+ve; PUI COVID Interval history: Patient is seen today for: Acute hypoxemic respiratory failure; Bilateral pneu monia; HIV+ve; PUI COVID-19; Anemia Seen and examined at bedside; 24hour events reviewed; nursing and respiratory care staff consulted; no adverse overnight events reported to me; resting peacefully in bed; feels a little better; denies hemoptysis; states coughing was major symptom and that is better Objective Vital Signs - 12hr 02/07/21 02/07/21 02/07/21 04:14 08:52 10:52 Temperature 98.1 F Pulse Rate 76 91 H Pulse Rate [ Anterior Bilateral Throughout] Pulse Rate [ 96 H Posterior] Respiratory 16 Rate Respiratory Rate [Anterior Bilateral Throughout] Respiratory 18 Rate [Posterior ] Blood Pressure 103/66 100/70 O2 Sat by Pulse 93 86 Oximetry 02/07/21 02/07/21 10:53 12:00 Temperature Pulse Rate 89 Pulse Rate [ 93 H Anterior Bilateral Throughout] Pulse Rate [ Posterior] Respiratory Rate Respiratory 18 Rate [Anterior Bilateral Throughout] Respiratory Rate [Posterior ] Blood Pressure O2 Sat by Pulse 92 Oximetry Constitutional: no acute distress, alert Eyes: non-icteric ENT: oropharynx moist Neck: supple, no JVD Effort: normal Ascultation: Bilateral: rales (inspiratory in bases) Percussion: Bilateral: not dull Cardiovascular: regular rate and rhythm Gastrointestinal: normoactive bowel sounds, soft, non-tender Integumentary: normal Extremities: no cyanosis, no edema Neurologic: normal mental status, non-focal exam, pupils equal and round, CN II- XII normal Psychiatric: mood appropriate, affect normal CBC and BMP: 02/06/21 02:10 02/06/21 02:10 ABG, PT/INR, D-dimer: PT/INR, D-dimer D-Dimer 443.53 ng/mlDDU (0-234) H 02/05/21 01:51 Abnormal lab findings: Abnormal Labs 02/04/21 02/04/21 02/04/21 21:42 21:42 21:42 WBC 4.0 L Hgb 10.0 L Hct 32.2 L MCV 80 L MCH 25 L MCHC 31 L RDW 19.0 H Plt Count 519 H [place] % (Auto) 12.6 H Eos % (Auto) 8.7 H Lymph # (Auto) 0.7 L Seg Neutrophils % D-Dimer Sodium 136 L Glucose 74 L Calcium ALT < 5 L C-Reactive Protein Albumin 3.0 L 02/05/21 02/05/21 02/06/21 01:51 01:51 02:10 WBC Hgb 10.2 L Hct 32.2 L MCV 81 L MCH 26 L MCHC RDW 18.5 H Plt Count 490 H [place] % (Auto) 12.5 H Eos % (Auto) Lymph # (Auto) 0.7 L Seg Neutrophils % 71.6 H D-Dimer 443.53 H Sodium Glucose Calcium ALT C-Reactive Protein 1.60 H Albumin 02/06/21 02:10 WBC Hgb Hct MCV MCH MCHC RDW Plt Count [place] % (Auto) Eos % (Auto) Lymph # (Auto) Seg Neutrophils % D-Dimer Sodium 135 L Glucose Calcium 8.2 L ALT C-Reactive Protein Albumin Chest x-ray: image reviewed (stable basilar R>L predominant infiltrates) Allied health notes reviewed: nursing
--- NOTE | 2021-02-07 18:06 | Progress Note ---
Assessment and Plan (1) Bilateral pneumonia Current Visit: Yes Status: Acute Plan to address problem: Admit the patient to the medical telemetry. Oxygen via nasal cannula 3 L/min. DuoNeb by nebulizer every 4 hours.. Albuterol via nebulizer every 4 hours as needed. Rocephin 2 g IV daily. Zithromax 500 IV daily. We do the blood cultures sputum culture. We will consult infectious disease for evaluation. (2) Suspected COVID-19 virus infection Current Visit: Yes Status: Acute Plan to address problem: Oxygen via nasal cannula 3 L/min. DuoNeb by nebulizer every 4 hours.. Albuterol via nebulizer every 4 hours as needed. Rocephin 2 g IV daily. Zithromax 500 IV daily. We do the blood cultures sputum culture. We will consult infectious disease for evaluation. Solu-Medrol 125 mg IV x1 dose. Follow Covid markers and Covid PCR result (3) Shortness of breath Current Visit: No Status: Acute Plan to address problem: Oxygen via nasal cannula 3 L/min. DuoNeb by nebulizer every 4 hours.. Albuterol via nebulizer every 4 hours as needed. Rocephin 2 g IV daily. Zithromax 500 IV daily. Solu-Medrol 125 mg IV x1 dose. We do the blood cultures sputum culture. We will consult infectious disease for evaluation. (4) HIV (human immunodeficiency virus infection) Current Visit: Yes Status: Chronic Plan to address problem: Tenofovir 300 mg p.o. daily. Bactrim 1 tablet p.o. daily. Will consult infectious disease for further evaluation and treatment (5) DVT prophylaxis Current Visit: No Status: Acute Plan to address problem: Heparin 5000 units subcu every 8 hours for DVT prophylaxis. Pepcid 20 mg p.o. twice daily for GI prophylaxis. Patient is a full code. 01/19/2021; patient was seen by ID and discontinued antibiotics because procalcitonin level is low. Patient is on Bactrim. ID is considering open lung biopsy. Pulmonary was consulted but did not comment about the biopsy. CT abdomen and chest was done and reading is pending. Subjective Date of service: 02/07/21 Principal diagnosis: Acute hypoxemic respiratory failure; Bilateral pneumonia; HIV+ve; PUI COVID Interval history: A/P: 35-year-old male with HIV, COVID-19 in October 2020, hospitalized in 12/2020 for bilateral pneumonia: #Chronic bilateral pneumonia, right greater than left: Has undergone extensive work-up in the past. Underwent a bronchoscopy by Dr. Ardon in October 2019. BAL culture grew usual respiratory shari, it seems fungal culture got canceled. Fungal stain was positive for hyphae and spores, negative for PJP. His CT scan in August 2020 showed a persistent masslike consolidation in the right hilar region. Repeat CT in 12/2020 showed right hilar mass with infiltrates and mediastinal lymphadenopathy. Transbronchial biopsy in December 2020 showed benign lung tissue and negative stains for AFB, fungi, negative for malignancy. BAL cytology showed proteinaceous debris, mild chronic inflammatory cells, rare benign bronchial epithelial cells present negative for malignant cells. Objective - Constitutional Vitals: Vital Signs - 12hr 02/07/21 02/07/21 02/07/21 08:52 10:52 10:53 Pulse Rate 91 H 89 Pulse Rate [ Anterior Bilateral Throughout] Pulse Rate [ 96 H Posterior] Respiratory Rate [Anterior Bilateral Throughout] Respiratory 18 Rate [Posterior ] Blood Pressure 100/70 O2 Sat by Pulse 86 92 Oximetry 02/07/21 12:00 Pulse Rate Pulse Rate [ 93 H Anterior Bilateral Throughout] Pulse Rate [ Posterior] Respiratory 18 Rate [Anterior Bilateral Throughout] Respiratory Rate [Posterior ] Blood Pressure O2 Sat by Pulse Oximetry General appearance: Present: no acute distress, well-nourished - EENT Eyes: PERRL, EOM intact ENT: hearing intact, clear oral mucosa Ears: bilateral: normal - Neck Neck: supple, normal ROM - Respiratory Respiratory effort: normal Respiratory: bilateral: CTA - Breasts Breasts: normal - Cardiovascular Rhythm: regular Heart Sounds: Present: S1 & S2. Absent: gallop, rub Extremities: pulses intact, No edema, normal color, Full ROM - Gastrointestinal General gastrointestinal: Present: soft, non-tender, non-distended, normal bowel sounds - Genitourinary Male genitourinary: normal - Integumentary Integumentary: clear, warm, dry - Musculoskeletal Musculoskeletal: 1, strength equal bilaterally - Neurologic Neurologic: moves all extremities - Psychiatric Psychiatric: memory intact, appropriate mood/affect, intact judgment & insight - Labs CBC & Chem 7: 02/06/21 02:10 02/06/21 02:10
[2021-02-08] MEDS: IPRATROPIUM/ALBUTEROL SULFATE 3 ML AMPUL.NEB IH SCH ×3 (03:12→13:30)
[2021-02-08] MEDS: BENZONATATE 100 MG CAP PO SCH (05:21)
[2021-02-08] MEDS: HEPARIN 5,000 UNIT/1 ML VIAL SUB-Q SCH (05:32)
[2021-02-08] MEDS: SULFAMETHOXAZOLE/TRIMETHOPRIM 800/160MG DS TAB PO SCH (12:25)
[2021-02-08] MEDS: FAMOTIDINE 20 MG TAB PO SCH (12:26)
[2021-02-08] MEDS: DOLUTEGRAVIR 50 MG TAB PO SCH (12:26)
[2021-02-08] MEDS: EMTRICITABINE 200 MG CAP PO SCH (12:26)
[2021-02-08] MEDS: TENOFOVIR 300 MG TAB PO SCH (12:27)
--- NOTE | 2021-02-08 12:28 | Discharge Summary ---
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 Patient was diagnosed at that time with bilateral pneumonia. Upon discharge given diagnosis of chronic bilateral pneumonia right greater than left. Patient has had extensive work-up including a bronchoscopy in October 2020. At that initial time it only found hyphae and spores positive. Since that ti me repeat has been unremarkable. Patient also had CT scan August 2020 which showed persistent masslike lesion/consolidation on the right side. Had a repeat on which showed again a hilar mass in the mediastinum with lymphadenopathy. Patient had a repeat biopsy at that time which showed benign tissues AFB negative and fungi negative as well. Blood cultures this time showed no growth. Patient Covid negative as well. 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 Would like to follow-up with him. Patient will need additional pulmonary logic work-up. Including possible open lung biopsy. Patient at this time is stable on 3 L of oxygen and will be discharged on 2 L of oxygen as well. Maintain sats at 93% even with walking with 3 L of O2. Will discharge home on 3 days of oxygen. Disposition: - TO HOME OR SELFCARE Final Discharge Diagnosis (Prints w/discharge instructions): Acute respiratory failure - Discharge Diagnoses (1) Bilateral pneumonia Status: Acute Comment: Patient has been treated for bilateral pneumonia here with Bactrim as well as IV cefepime. No longer needs any further treatment for this. Only Bactrim prophylaxis. Spoken to ID. Not much else he can do for them at this time. Does not appear to be infectious. Given biopsy results. Will need to follow with pulmonology to attempt to identify etiology of chronic right upper lobe mass. Patient is fine for months on end until he has a problem with coughing then starts again. Discharged home with home O2. (2) Suspected COVID-19 virus infection Status: Acute Comment: Ruled out for Covid. (3) HIV (human immunodeficiency virus infection) Status: Chronic Comment: Resume antiretroviral medications including Tivicay and Emtriva (4) Acute respiratory failure Status: Acute Comment: Acute respiratory failure resolved secondary to bilateral pneumonia. Has been treated IV antibiotics now we will continue Bactrim as prophylaxis for HIV as well. Follow-up pulmonology. 5 to 7 days. Continue home O2 as indicated (5) Discharge planning issues Status: Acute (6) Full code status Status: Acute (7) Kaposi dermatosis Status: Acute Core Measure Documentation - Palliative Care Palliative Care/ Comfort Measures: Not Applicable - Core Measures Any of the following diagnoses?: none Exam - Constitutional Vitals: Temp Pulse Resp BP Pulse Ox 97.6 F 83 20 107/77 95 02/08/21 04:01 02/08/21 07:58 02/08/21 07:58 02/08/21 04:01 02/08/21 07:58 General appearance: Present: no acute distress, well-nourished - EENT Eyes: Present: PERRL ENT: hearing intact, clear oral mucosa - Neck Neck: Present: supple, normal ROM - Respiratory Respiratory effort: normal Respiratory: bilateral: CTA, wheezing (mild) - Cardiovascular Heart Sounds: Present: S1 & S2. Absent: rub, click - Extremities Extremities: pulses symmetrical, No edema Peripheral Pulses: within normal limits - Abdominal General gastrointestinal: Present: soft, non-tender, non-distended, normal bowel sounds Male genitourinary: Present: normal - Integumentary Integumentary: Present: clear, warm, dry - Musculoskeletal Musculoskeletal: gait normal, strength equal bilaterally - Psychiatric Psychiatric: appropriate mood/affect, intact judgment & insight - Neurologic Neurologic: CNII-XII intact, moves all extremities Plan Activity: fall precautions Weight Bearing Status: Full Weight Bearing Diet: other (O2 3 L) Special Instructions: home health RN Durable Medical Equipment Needed Upon Discharge: Oxygen Follow up with: PRIMARY CARE, [Primary Care Provider] - 7 Days Prescriptions: Sulfamethoxazole/Trimethoprim [Bactrim DS TAB] 1 each PO DAILY #30 tablet Famotidine [Pepcid] 20 mg PO BID #20 tablet ALBUTEROL NEB's [Proventil 0.083% NEBS] 2.5 mg IH Q4HRT PRN #7 nebu PRN Reason: Shortness Of Breath Benzonatate [Tessalon Perles] 100 mg PO Q8HR #20 capsule
--- NOTE | 2021-02-08 12:34 | Progress Note ---
Assessment and Plan Cultures: Previous chart and cultures reviewed. 12/06/2020 blood culture: no growth 12/06/2020 serum cryptococcal antigen: Negative 12/06/2020 fungal blood culture: In process 12/07/2020 sputum culture: Oral contamination Syphilis IgG positive, 12/07/2020 RPR titer: 1:2 12/06/2020 HIV RNA PCR: 51 12/08/2020 sputum smear for fungus and AFB: Negative Current admission: 02/05/2021 blood culture: No growth 02/05/2021 COVID-19 PCR: Negative A/P: 35-year-old male with HIV, COVID-19 in October 2020, hospitalized in 12/2020 for bilateral pneumonia: #Chronic bilateral pneumonia, right greater than left: Has undergone extensive work-up in the past. Underwent a bronchoscopy by Dr. Ardon in October 2019. BAL culture grew usual respiratory shari, it seems fungal culture got canceled. Fungal stain was positive for hyphae and spores, negative for PJP. His CT scan in August 2020 showed a persistent masslike consolidation in the right hilar region. Repeat CT in 12/2020 showed right hilar mass with infiltrates and mediastinal lymphadenopathy. Transbronchial biopsy in December 2020 showed benign lung tissue and negative stains for AFB, fungi, negative for malignancy. BAL cytology showed proteinaceous debris, mild chronic inflammatory cells, rare benign bronchial epithelial cells present negative for malignant cells. #HIV: Compliant with Biktarvy. Viral load 51 in 12/2020, CD4 count 35, 10%. 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 #Leukopenia, reactive thrombocytosis Recs: -Patient has undergone extensive work up for chronic bilateral pneumonia as discussed above. May need an open lung biopsy for definitive diagnosis. 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 -continue Biktarvy upon discharge -continue Bactrim prophylaxis -follow up with ID clinic - Dr. Garcia (in 2-3 weeks) to follow up HIV RNA PCR and CD4 count d/w Dr. Joseph Velásquez MD, FACP [facility] ([facility]) O: [phone] Subjective Date of service: 02/08/21 Principal diagnosis: Acute hypoxemic respiratory failure; Bilateral pneumonia; HIV+ve; PUI COVID Interval history: No fever. Breathing is fair. No significant cough. CT results still not back. 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 Objective - Exam Narrative Exam: Physical Exam: Constitutional: Alert, cooperative. No acute distress Head, Ears, Nose: Normocephalic, atraumatic. External ears, nose normal Eyes: Conjunctivae/corneas clear. No icterus. No ptosis. Neck: Supple, no meningeal signs Cardiovascular: S1, S2 normal. Respiratory: AE fair b/l, occasional rhonchi + GI: Soft, non-tender; bowel sounds normal. No peritoneal signs Musculoskeletal: b/l pedal edema. Skin: b/L LE with purplish lesions Hem/Lymphatic: No palpable cervical or supraclavicular nodes. No lymphangitis Psych: Mood ok. Affect normal Neurological: Awake, alert, oriented. No gross abnormality - Constitutional Vitals: Vital Signs Temp Pulse Resp BP Pulse Ox 97.6 F 83 20 107/77 95 02/08/21 04:01 02/08/21 07:58 02/08/21 07:58 02/08/21 04:01 02/08/21 07:58 Temperature -Last 24 Hours Temperature 97.6 F Temperature 97.9 F Temperature 98.0 F - Labs CBC & Chem 7: 02/06/21 02:10 02/06/21 02:10
[2021-02-08 14:31] VITALS: BP 103/67
--- NOTE | 2021-02-08 15:02 | Progress Note ---
Assessment and Plan Acute hypoxemic respiratory failure. Bilateral pneumonia, chronic. Human immunodeficiency virus positive. The patient under investigation for COVID-19 infection. Leukopenia. Anemia that is microcytic. - Pulmonary out patient follow up for PFTs and optimization of respiratory status - he will benefit fro CTSU evaluation for possible lung biopsy - continue prn antitussive's - anti-infective's and ART per ID recommendations - continue care as below otherwise; - continue to wean supplemental oxygen to keep O2 sats > 92% - continue Bronchodilators (JJ) with pulm hygiene per RT - continue to avoid nephrotoxins, renally dose all medications - mobility protocols to prevent pressure ulcers - PT/OT as tolerated - Wound care per RN/WCT - accuchecks with glycemic control per SSI for target blood glucose < 180 mg/dL - tobacco abstinence strongly counseled at the bedside - home oxygen evaluation at discharge - GI & VTE prophylaxis - Flu & pneumovax per protocol - prn analgesia per pain score - continue other care per attending / other consultants ... re-evaluate in am & prn Subjective Date of service: 02/08/21 Principal diagnosis: Acute hypoxemic respiratory failure; Bilateral pneumonia; HIV+ve; PUI COVID Interval history: Patient is seen today for: Acute hypoxemic respiratory failure; Bilateral pneumonia; HIV+ve; PUI COVID-19; Anemia Seen and examined at bedside; 24hour events reviewed; nursing and respiratory care staff consulted; no adverse overnight events reported to me; resting peacefully in bed; continues to feel better; tentative discharge today Objective Vital Signs - 12hr 02/08/21 02/08/21 02/08/21 04:01 07:58 11:58 Temperature 97.6 F 97.9 F Pulse Rate 89 86 Pulse Rate [ 83 Anterior Bilateral Throughout] Respiratory 16 19 Rate Respiratory 20 Rate [Anterior Bilateral Throughout] Blood Pressure 107/77 103/67 O2 Sat by Pulse 96 95 96 Oximetry 02/08/21 11:59 Temperature Pulse Rate 81 Pulse Rate [ Anterior Bilateral Throughout] Respiratory Rate Respiratory Rate [Anterior Bilateral Throughout] Blood Pressure O2 Sat by Pulse 96 Oximetry Constitutional: no acute distress, alert Eyes: non-icteric ENT: oropharynx moist Neck: supple, no JVD Effort: normal Ascultation: Bilateral: rales (inspiratory in bases) Percussion: Bilateral: not dull Cardiovascular: regular rate and rhythm Gastrointestinal: normoactive bowel sounds, soft, non-tender Integumentary: normal Extremities: no cyanosis, no edema Neurologic: normal mental status, non-focal exam, pupils equal and round, CN II- XII normal Psychiatric: mood appropriate, affect normal CBC and BMP: 02/06/21 02:10 02/06/21 02:10 ABG, PT/INR, D-dimer: PT/INR, D-dimer D-Dimer 443.53 ng/mlDDU (0-234) H 02/05/21 01:51 Abnormal lab findings: Abnormal Labs 02/04/21 02/04/21 02/04/21 21:42 21:42 21:42 WBC 4.0 L Hgb 10.0 L Hct 32.2 L MCV 80 L MCH 25 L MCHC 31 L RDW 19.0 H Plt Count 519 H [place] % (Auto) 12.6 H Eos % (Auto) 8.7 H Lymph # (Auto) 0.7 L Seg Neutrophils % D-Dimer Sodium 136 L Glucose 74 L Calcium ALT < 5 L C-Reactive Protein Albumin 3.0 L 02/05/21 02/05/21 02/06/21 01:51 01:51 02:10 WBC Hgb 10.2 L Hct 32.2 L MCV 81 L MCH 26 L MCHC RDW 18.5 H Plt Count 490 H [place] % (Auto) 12.5 H Eos % (Auto) Lymph # (Auto) 0.7 L Seg Neutrophils % 71.6 H D-Dimer 443.53 H Sodium Glucose Calcium ALT C-Reactive Protein 1.60 H Albumin 02/06/21 02:10 WBC Hgb Hct MCV MCH MCHC RDW Plt Count [place] % (Auto) Eos % (Auto) Lymph # (Auto) Seg Neutrophils % D-Dimer Sodium 135 L Glucose Calcium 8.2 L ALT C-Reactive Protein Albumin Allied health notes reviewed: nursing
[2021-02-08 15:25] LABS: CD4/CD8 Ratio 0.41 (0.86-5.00)
--- NOTE | 2021-02-08 15:50 | Cat Scan Report ---
CT CHEST, ABDOMEN, AND PELVIS with and WITHOUT CONTRAST INDICATION / CLINICAL INFORMATION: HIV, splenic lesions. TECHNIQUE: Axial CT images were obtained through the chest, abdomen, and pelvis without contrast. All CT scans a t this location are performed using CT dose reduction for ALARA by means of automated exposure contro l. COMPARISON: 12/07/2020 FINDINGS: CHEST: There is extensive peribronchial infiltration with scattered nodular densities opacities withi n bilateral lungs right greater than left extensive mediastinal paratracheal and hilar adenopathy is again identified. Right hilar mass again noted with encasement of the right bronchus. Heart size appe ars normal. ABDOMEN/PELVIS: Liver is enlarged. Spleen, adrenal glands appear normal. Splenic lesions are unchange d. There is suggestion of periaortic and mesenteric adenopathy in the upper abdomen which appears sim ilar to prior examination. Pancreas appears normal. Portal vein is patent. No evidence for bowel obst ruction is seen. There is body wall anasarca. There are bilateral enlarged inguinal nodes with inguin al adenopathy. This is also identified on prior examination. Retroperitoneal adenopathy surrounding t he aorta and retroperitoneum is again seen. Urinary bladder appears normal. SKELETAL SYSTEM: There is a right iliac lytic lesion. Few other lucent/lytic lesions are seen in the left pelvis and the spine. Findings appear similar. IMPRESSION: 1. Extensive peribronchial consolidation with nodular opacities and patchy parenchymal densities in b ilateral lungs. There is extensive mediastinal paratracheal and hilar adenopathy. Findings appears si milar to prior exam. 2. Abdominal and pelvic and groin adenopathy. Retroperitoneal adenopathy. 3. Hepatosplenomegaly. 4. Multiple lytic lesions in the pelvis and lumbar spine Signer Name: Jose C Miranda MD Signed: 02/08/2021 3:46 PM Workstation Name: [email or web address]
[2021-02-08 20:21] LABS: HIV-1 RNA QN PCR <1.30 Log cps/mL; HIV-1 RNA QN PCR <20 Copies/mL
== END 2021-02-08 16:15 | disposition home or self-care (01) | DRG 974 ==
LOC: ED 20:28 → 3A 02-05 02:52
PROVIDERS: ADMIT Hospitalist; ATTEND Internal Medicine
DX: J18.9 Pneumonia, unspecified organism (principal); J96.01 Acute respiratory failure with hypoxia; B20 Human immunodeficiency virus [HIV] disease; Z20.822 Contact with and (suspected) exposure to COVID-19; D72.819 Decreased white blood cell count, unspecified; D50.9 Iron deficiency anemia, unspecified; Z79.899 Other long term (current) drug therapy; Q82.1 Xeroderma pigmentosum; Z91.14 Patient's other noncompliance with medication regimen
CPT/HCPCS: 36415; 71046; 71250; 74177; 80048; 80076; 82024; 82728; 82947; 83615; 84145; 85025; 85379; 86140; 87040; 87070; 87205; 87536; 94640; 96365; 96375; G0378; J0456; J0696; J1644; J1956; J2930; Q9967; U0003

== ENCOUNTER 2021-03-15 17:50 | Emergency (ER) | payer OTHER ==
[2021-03-15 19:01] VITALS: BP 111/78
--- NOTE | 2021-03-15 19:25 | Emergency Department Report ---
Chief Complaint: Dyspnea/Respdistress Stated Complaint: COUGH /POSS COVID - HPI History of Present Illness: 36-year-old -[place] male with immune compromise presents to the emergency room stating he started with a cough yesterday. Patient has not taken anything for his cough. Denies any fever chills no nausea no vomiting no chest pain or shortness of breath. - Exam Vital Signs: Vital Signs 03/15/21 19:01 Temperature 98.8 F Pulse Rate 80 Respiratory 18 Rate Blood Pressure 111/78 O2 Sat by Pulse 99 Oximetry Physical Exam: General: Awake, appropriately interactive, no acute distress. Neck: Supple. Full range of motion intact. Cardiovascular: Normal peripheral perfusion. Pulmonary: No respiratory distress. Patient is speaking normally without use of accessory muscles. Skin: No apparent rashes or lesions. Neurological: No facial asymmetry. Speech is clear. Follows commands. Patient is alert and oriented. Musculoskeletal: Full range of motion, no crepitus. Able to bear weight and ambulate without difficulty. Distal neurovascular and motor/sensory function is intact. Psych: Cooperative. Appropriate mood and affect. MSE screening note: Focused history and physical exam performed. Due to findings the following was ordered: 36-year-old -[place] male with immune compromise presents to the emergency room stating he started with a cough yesterday. Patient has not taken anything for his cough. Denies any fever chills no nausea no vomiting no chest pain or shortness of breath. ED Disposition for MSE Disposition: -01 TO HOME OR SELFCARE Is pt being admited?: No Does the pt Need Aspirin: No Condition: Stable Additional Instructions: Recommend [id number] Robitussin, Claritin. Your symptoms appear most consistent with a nonspecific viral syndrome. However, given this current pandemic, COVID-19 is in the differential of possibilities. I do recommend outpatient Covid 19 testing. In the meantime, isolate/quarantine yourself and stay away from anyone who is elderly, immunocompromised or chronically ill. You can use ibuprofen every 6-8 hours and Tylenol every 4-8 hours, using the dosing on the back of the bottle, as needed for any fever or body aches. Return to the emergency department with any worsening of your symptoms, development of chest pain or shortness of breath, or with any acute distress. Time of Disposition: 19:25
== END 2021-03-15 20:05 | disposition home or self-care (01) ==
LOC: ED 17:50
DX: R05 Cough (principal); D84.9 Immunodeficiency, unspecified; Z20.822 Contact with and (suspected) exposure to COVID-19
CPT/HCPCS: 99281; 99282

== ENCOUNTER 2022-01-11 18:15 | Emergency (ER) | payer SELFPAY ==
[2022-01-11 18:36] VITALS: BP 108/69
[2022-01-12] MEDS ORDERED: FLUCONAZOLE 200 MG TAB PO ONE (00:35)
[2022-01-12] MEDS ORDERED: SULFAMETHOXAZOLE/TRIMETHOPRIM 800/160MG DS TAB PO ONE (00:35)
[2022-01-12] MEDS: oxyCODONE /ACETAMINOPHEN 5-325MG TAB PO ONE ×2 (00:47→00:49)
[2022-01-12] MEDS: IBUPROFEN 600 MG TAB PO ONE ×2 (00:47→00:50)
[2022-01-12] MEDS: ONDANSETRON 4 MG ODT TAB PO ONE ×2 (00:48→00:50)
--- NOTE | 2022-01-12 02:40 | Emergency Department Report ---
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 Patient states that in the last 4 days, the pain and the swelling have worsened and the thick purulent discharge have been persistent. Patient states that he has not been able to sleep because of worsening pain. Patient denies fever, chills, dizziness, syncope, cough, sore throat, dysuria, urinary frequency and urgency, testicular pain, nausea and vomiting or diarrhea and abdominal pain. MD Complaint: bilateral inguinal rashes with thick purulent discharge; ulcerated rashes -: Sudden, week(s) (4) Location: pelvis, genitals Radiation: non-radiation Severity scale (0 -10): 7 Quality: aching, sharp Consistency: constant Worsens with: movement Associated Symptoms: denies other symptoms, rash (Ulcerated painful erythematous maculopapular rashes and lesions in the inguinal and pubic areas). denies: confusion, chest pain, cough, diaphoresis, fever/chills, headaches, loss of appetite, malaise, nausea/vomiting, shortness of breath, syncope, weakness Treatments Prior to Arrival: none - Related Data Previous Rx's Medication Instructions Recorded Last Taken Type Ipratropium/Albuterol Sulfate 1 ampul IH Q6HR #120 ampul.neb 02/24/20 Unknown Rx [DUONEB *Not for PRN Use*] Promethazine HCl [Promethazine TAB] 12.5 mg PO [id number] PRN #12 tab 05/09/20 Unknown Rx Atovaquone [Mepron] 750 mg PO BID 25 Days ml 08/19/20 Unknown Rx Famotidine [Pepcid] 20 mg PO BID #60 tablet 08/19/20 Unknown Rx Albuterol Sulfate [Proventil Hfa] 6.7 gm IH QID #1 hfa.aer.ad 11/26/20 Unknown Rx Indomethacin 50 mg PO BID 5 Days capsule 01/17/21 Unknown Rx ALBUTEROL NEB's [Proventil 0.083% 2.5 mg IH Q4HRT PRN #7 nebu 02/08/21 Unknown Rx NEBS] Acetaminophen [Acetaminophen TAB] 650 mg PO Q4H PRN tablet 02/08/21 Unknown Rx Benzonatate [Tessalon Perles] 100 mg PO Q8HR #20 capsule 02/08/21 Unknown Rx Famotidine [Pepcid] 20 mg PO BID #20 tablet 02/08/21 Unknown Rx HYDROcodone/APAP 5-325 [[place] 1 each PO Q6HR PRN #10 tablet 01/12/22 Unknown Rx 5/325] Ibuprofen [Motrin] 800 mg PO Q8HR PRN #30 tablet 01/12/22 Unknown Rx Sulfamethoxazole/Trimethoprim 1 each PO Q12H #20 tablet 01/12/22 Unknown Rx [Bactrim DS TAB] Terbinafine (Nf) [LamiSIL] 250 mg PO QDAY #30 tablet 01/12/22 Unknown Rx Valacyclovir HCl [Valacyclovir] 1,000 mg PO Q8H #30 tab 01/12/22 Unknown Rx Allergies Allergy/AdvReac Type Severity Reaction Status Date / Time No Known Allergies Allergy Verified 01/17/21 15:42 ED Review of Systems ROS: Stated complaint: LEAK IN GROIN Other details as noted in HPI Constitutional: denies: chills, fever Eyes: denies: eye pain, eye discharge, vision change ENT: denies: ear pain, throat pain Respiratory: denies: cough, orthopnea, shortness of breath, wheezing, other Cardiovascular: denies: chest pain, palpitations Endocrine: no symptoms reported Gastrointestinal: denies: abdominal pain, nausea, diarrhea Genitourinary: denies: urgency, dysuria Musculoskeletal: denies: back pain, joint swelling, arthralgia Skin: rash (Ulcerated lesions and rashes with pain and discharge in inguinal area and pubic area), change in color, pruritus. denies: lesions Neurological: denies: headache, weakness, paresthesias Psychiatric: denies: anxiety, depression Hematological/Lymphatic: denies: easy bleeding, easy bruising ED Past Medical Hx - Past Medical History Previous Medical History?: Yes Hx Hypertension: No Hx Heart Attack/AMI: No Hx Congestive Heart Failure: No Hx Diabetes: No Hx Deep Vein Thrombosis: No Hx Pulmonary Embolism: No Hx Liver Disease: No Hx Renal Disease: No Hx Seizures: No Hx Psychiatric Treatment: No Hx Asthma: No Hx COPD: No Hx Tuberculosis: No Hx Dementia: No Hx HIV: Yes (ON ANTI-VIRAL'S) Additional medical history: PNA in December 2019, PNA in February 2020, Covid-26 November 2020 - Surgical History Hx Coronary Stent: No Hx Pacemaker: No Hx Internal Defibrillator: No - Social History Smoking Status: Never Smoker - Medications Home Medications: Home Medications Medication Instructions Recorded Confirmed Last Taken Type Ipratropium/Albuterol Sulfate 1 ampul IH Q6HR #120 ampul.neb 02/24/20 12/15/20 Unknown Rx [DUONEB *Not for PRN Use*] Promethazine HCl [Promethazine TAB] 12.5 mg PO [id number] PRN #12 tab 05/09/20 12/15/20 Unknown Rx Atovaquone [Mepron] 750 mg PO BID 25 Days ml 08/19/20 12/15/20 Unknown Rx Famotidine [Pepcid] 20 mg PO BID #60 tablet 08/19/20 12/15/20 Unknown Rx Albuterol Sulfate [Proventil Hfa] 6.7 gm IH QID #1 hfa.aer.ad 11/26/20 12/15/20 Unknown Rx Indomethacin 50 mg PO BID 5 Days capsule 01/17/21 Unknown Rx ALBUTEROL NEB's [Proventil 0.083% 2.5 mg IH Q4HRT PRN #7 nebu 02/08/21 Unknown Rx NEBS] Acetaminophen [Acetaminophen TAB] 650 mg PO Q4H PRN tablet 02/08/21 Unknown Rx Benzonatate [Tessalon Perles] 100 mg PO Q8HR #20 capsule 02/08/21 Unknown Rx Famotidine [Pepcid] 20 mg PO BID #20 tablet 02/08/21 Unknown Rx HYDROcodone/APAP 5-325 [[place] 1 each PO Q6HR PRN #10 tablet 01/12/22 Unknown Rx 5/325] Ibuprofen [Motrin] 800 mg PO Q8HR PRN #30 tablet 01/12/22 Unknown Rx Sulfamethoxazole/Trimethoprim 1 each PO Q12H #20 tablet 01/12/22 Unknown Rx [Bactrim DS TAB] Terbinafine (Nf) [LamiSIL] 250 mg PO QDAY #30 tablet 01/12/22 Unknown Rx Valacyclovir HCl [Valacyclovir] 1,000 mg PO Q8H #30 tab 01/12/22 Unknown Rx ED Physical Exam - General Limitations: No Limitations General appearance: alert, in no apparent distress - Head Head exam: Present: atraumatic, normocephalic, normal inspection - Eye Eye exam: Present: normal appearance, PERRL, EOMI Pupils: Present: normal accommodation - ENT ENT exam: Present: normal exam, normal orophraynx, mucous membranes moist, TM's normal bilaterally, normal external ear exam - Neck Neck exam: Present: normal inspection, full ROM. Absent: tenderness - Respiratory Respiratory exam: Present: normal lung sounds bilaterally. Absent: respiratory distress, wheezes, rales, rhonchi, chest wall tenderness, accessory muscle use, decreased breath sounds, prolonged expiratory - Cardiovascular Cardiovascular Exam: Present: normal rhythm, tachycardia, normal heart sounds. Absent: systolic murmur, diastolic murmur, rubs, gallop - GI/Abdominal GI/Abdominal exam: Present: soft, normal bowel sounds. Absent: tenderness, guarding, rebound, hyperactive bowel sounds, hypoactive bowel sounds, organomegaly - Extremities Exam Extremities exam: Present: normal inspection, full ROM, normal capillary refill. Absent: tenderness - Back Exam Back exam: Present: normal inspection, full ROM. Absent: tenderness, CVA tenderness (R), CVA tenderness (L), muscle spasm, paraspinal tenderness, vertebral tenderness - Neurological Exam Neurological exam: Present: alert, oriented X3, CN II-XII intact, normal gait, reflexes normal - Psychiatric Psychiatric exam: Present: normal affect, normal mood - Skin Skin exam: Present: warm, dry, intact, normal color, rash (Ulcerated tender erythematous maculopapular rashes and lesions in the suprapubic and bilateral inguinal areas with thick purulent discharge and swelling), erythema, vesicles ED Course Vital Signs 01/11/22 01/12/22 18:34 02:34 Temperature 98.6 F Pulse Rate 105 H 88 Respiratory 20 Rate Blood Pressure 108/69 [Right] O2 Sat by Pulse 96 100 Oximetry ED Medical Decision Making - Medical Decision Making This is a 36-year-old -[place] Citizen male with a history of HIV and Kaposi's sarcoma who presents to the ED with complaint of acute onset persistent painful swollen erythematous maculopapular rashes with thick purulent discharge in the inguinal and pubic areas for the last 1 month. Patient states that in the last 4 days, the pain and the swelling have worsened and the thick purulent discharge have been persistent. Patient states that he has not been able to sleep because of worsening pain. In the ED, patient is alert and oriented x3 and is not in any distress. Patient was treated for pain in the ED and also given initial oral antibiotics in the ED. Based on the history physical exam findings, patient symptoms are likely due to tinea cruris, secondary bacterial cellulitis, and suspected shingles outbreak due to the patient's depressed immunity. On reevaluation, patient's pain is well controlled medication. Patient will discharge home on medications and advised to follow-up with his infectious disease physician or primary care physician in 7 to 10 days for reevaluation. Patient was advised to return to the ED immediately if symptoms get worse. - Differential Diagnosis Cellulitis; tinea cruris; shingles outbreak; genital herpes; Critical care attestation.: If time is entered above; I have spent that time in minutes in the direct care of this critically ill patient, excluding procedure time. ED Disposition Clinical Impression: Tinea cruris, Cellulitis of pubic region Shingles outbreak Qualifiers: Herpes zoster complications: without complications Qualified Code(s): B02.9 - Zoster without complications Disposition: 01 HOME / SELF CARE / HOMELESS Is pt being admited?: No Does the pt Need Aspirin: No Condition: Stable Instructions: Shingles, [id number], Jock Itch, [id number], Cellulitis, Adult, Wnny-hq-Indr Additional Instructions: Take medication with food, drink plenty of fluids, follow-up with your primary care physician in 7 to 10 days for reevaluation. Return to the ED immediately if symptoms get worse Prescriptions: Sulfamethoxazole/Trimethoprim [Bactrim DS TAB] 1 each PO Q12H #20 tablet Terbinafine (Nf) [LamiSIL] 250 mg PO QDAY #30 tablet Ibuprofen [Motrin] 800 mg PO Q8HR PRN #30 tablet PRN Reason: Pain , Severe (7-10) HYDROcodone/APAP 5-325 [[place] 5/325] 1 each PO Q6HR PRN #10 tablet PRN Reason: Pain Valacyclovir HCl [Valacyclovir] 1,000 mg PO Q8H #30 tab Referrals: SHELLEY MEANS MD [Primary Care Provider] - 3-5 Days Time of Disposition: 02:38 Print Language: CZECH
== END 2022-01-12 03:22 | disposition home or self-care (01) ==
LOC: ED 18:15
DX: B35.6 Tinea cruris (principal); L03.314 Cellulitis of groin; B02.9 Zoster without complications; Z21 Asymptomatic human immunodeficiency virus [HIV] infection status
CPT/HCPCS: 99282; J3490; Q0162